=== PATIENT | female | born 1945 | race African-American/Black ===

== ENCOUNTER 2020-02-02 09:16 | Outpatient (REF) | payer MEDICARE, SELFPAY ==
[2020-02-02 10:18] LABS: MANUAL DIFF FLAG NO
[2020-02-02 10:28] LABS: Basophils Percent Auto 0.4 % (0-2); Eosinophils Absolute Auto 0.2 X10*3/uL (0.0-0.4); Eosinophils Percent Auto 2.8 % (0-4); Hematocrit 37.6 % (37-47); Hemoglobin 11.9 g/dl (12.0-16.0); Imm Gran Abs Auto 0.02 X10*3/uL (0.00-0.03); Imm Gran Pct Auto 0.3 % (0.0-0.4); Lymphocytes Absolute Auto 2.7 X10*3/uL (1.2-4.9); Lymphocytes Percent Auto 36.2 % (20-40); Mean Corpuscular HGB Conc 31.6 g/dl (31.0-35.0); Mean Corpuscular Hemoglobin 27.2 pg (27.0-33.0); Mean Corpuscular Volume 85.8 fL (80-98); Mean Platelet Volume 11.2 fL (9.4-12.3); Monocytes Absolute Auto 0.3 X10*3/uL (0.1-1.2); Monocytes Percent Auto 4.6 % (2-11); Neutrophils Absolute Auto 4.2 X10*3/uL (2.0-8.3); Neutrophils Percent Auto 55.7 % (45-73); Platelet Count 291 X10*3/uL (160-400); Red Blood Count 4.38 X10*6/uL (4.20-5.50); Red Cell Distribution Width 17.3 % (11.0-16.0); White Blood Count 7.4 X10*3/uL (4.8-10.8)
[2020-02-02 10:49] LABS: Estimated Average Glucose 174 mg/dL; Hemoglobin A1c % 7.7 %
[2020-02-02 10:55] LABS: Alanine Aminotransferase 15 U/L (0-31); Albumin Level 4.1 g/dL (3.5-5.0); Alkaline Phosphatase 151 U/L (39-117); Aspartate Amino Transferase 12 U/L (5-31); Bilirubin Direct 0.3 mg/dL (0.0-0.5); Bilirubin Total 0.6 mg/dL (0.0-1.0); Total Protein 7.4 g/dL (6.5-8.0)
[2020-02-02 10:57] LABS: Alanine Aminotransferase 16 U/L (0-31); Albumin Level 4.1 g/dL (3.5-5.0); Alkaline Phosphatase 152 U/L (39-117); Anion Gap 13 (12-20); Aspartate Amino Transferase 12 U/L (5-31); Bilirubin Total 0.6 mg/dL (0.0-1.0); Blood Urea Nitrogen 14 mg/dL (9-16); Carbon Dioxide 23 mmol/L (22-29); Chloride 108 mmol/L (96-108); Cholesterol 134 mg/dL; Estimated Glomerular Filt Rate > 60; Glucose Fasting 225 mg/dL (60-99); HDL Cholesterol 45 mg/dL; LDL Cholesterol Calculated 59 mg/dl; Potassium 3.4 mmol/l (3.3-5.1); Sodium 141 mmol/L (135-145); Total Protein 7.6 g/dL (6.5-8.0); Triglycerides 151 mg/dL
[2020-02-02 11:18] LABS: T4 Thyroxine 6.9 ug/dL (4.5-12.0); Thyroid Stimulating Hormone 0.24 mIU/mL (0.32-4.0); Vitamin D 25-OH Total 44.6 ng/mL (>30)
[2020-02-02 11:22] LABS: Folate 5.7 ng/mL (> or = 4.0); Vitamin B12 256 pg/mL (200-900)
[2020-02-02 11:39] LABS: Creatinine Urine 27.42 mg/dL; Microalbum/Creatinine Ratio Ur 1196.2 ug/mg cr
[2020-02-02 12:06] LABS: Free T4 (Free Thyroxine) 0.87 ng/dL (0.71-1.85)
[2020-02-03 18:42] LABS: Triiodothyronine T3 Free 2.8 pg/mL (2.3-4.2)
== END 2020-02-02 09:17 | disposition home or self-care (01) ==
LOC: HO.LAB 09:16
PROVIDERS: PCP Internal Medicine; Referring Provider Internal Medicine; Visit Provider Internal Medicine
DX: I25.10 Atherosclerotic heart disease of native coronary artery without angina pectoris (principal); E05.10 Thyrotoxicosis with toxic single thyroid nodule without thyrotoxic crisis or storm; E11.21 Type 2 diabetes mellitus with diabetic nephropathy; E11.65 Type 2 diabetes mellitus with hyperglycemia; E78.00 Pure hypercholesterolemia, unspecified; Z95.1 Presence of aortocoronary bypass graft; R19.7 Diarrhea, unspecified; I10 Essential (primary) hypertension
CPT/HCPCS: 36415; 80053; 80061; 80076; 82043; 82248; 82306; 82607; 82746; 83036; 84436; 84439; 84443; 84481; 85025

== ENCOUNTER → 2020-06-21 12:25 | Outpatient (BNVA) | payer MEDICARE, SELFPAY | PROVIDERS: PCP Internal Medicine; Visit Provider Internal Medicine | DX: I25.10 Atherosclerotic heart disease of native coronary artery without angina pectoris (principal); I10 Essential (primary) hypertension; R06.02 Shortness of breath; E11.8 Type 2 diabetes mellitus with unspecified complications; Z95.1 Presence of aortocoronary bypass graft; Z79.899 Other long term (current) drug therapy; Z79.4 Long term (current) use of insulin; Z79.82 Long term (current) use of aspirin | CPT/HCPCS: 99212 ==

== ENCOUNTER → 2020-08-09 09:37 | Outpatient (REF) | payer MEDICARE, SELFPAY ==
--- NOTE | 2020-08-09 09:40 | CA_ITS ---
Transthoracic Echocardiogram Patient (Last, First, Middle): Lauren Crowley B Gender: Female Date of : 1945 Age: 74 Procedure Date: 08/09/2020 Procedure Type: Transthoracic Echocardiogram Location: OP Height: 162.56 cm Weight: 90.72 kg BSA: 1.96 m2 Heart Rate: bpm BP: 130 / 76 mmHg Oral And Maxillofacial Surgeon: Referring MD: Sujit Patterosn MD Symptoms: Z95.1 - Presence of aortocoronary bypass graft Study Quality: Good ECG Rhythm: Sinus Conclusions: - The left ventricular systolic function is normal. The visually estimated ejection fraction is between 65-70%. - There is moderate to severely decreased right ventricular systolic function. - No obvious valvular pathology seen on this study. Findings Left Ventricle Normal left ventricular cavity size. There is normal left ventricular wall thickness. The left ventricular systolic function is normal. The visually estimated ejection fraction is between 65-70%. There is no evidence of regional wall motion abnormalities. Evidence suggests grade I (mild) diastolic dysfunction. Right Ventricle Normal right ventricular cavity size. There is moderate to severely decreased right ventricular systolic function. TAPSE 0.96cm. Atria The left atrium is normal in size. The right atrium is normal in size. Interatrial septum seems to bulge towards the left during systole. Aortic Valve There is a normal trileaflet aortic valve. There is no aortic valve stenosis. There is no aortic valve regurgitation. Mitral Valve The mitral valve appears normal. There is trace mitral valve regurgitation. There is no mitral valve stenosis. Pulmonic Valve The pulmonic valve was not well visualized. Tricuspid Valve Normal tricuspid valve structure. There is trace tricuspid valve regurgitation. The pulmonary artery systolic pressure is normal. Great Vessels The aortic annulus, sinuses of valsalva, and asc aorta are normal in size. Venous The inferior vena cava is normal in size and collapses greater than 50% with inspiration. Pericardium/Pleural There is no evidence of pericardial effusion. Prior Study Comparison Changes noted compared to prior study dated: 12/23/2019. RV function is lower. Previous TAPSE was 1.26cm. Recommendations, Care & Conclusions No obvious valvular pathology seen on this study. Measurements 2D Linear Measurements RVIDd: 3.10 RVIDd Index: 1.58 IVSd: 0.99 0.6-0.9/0.6-1.0 cm LVIDd: 4.45 3.9-5.3/4.2-5.9 cm LVIDd Index: 2.27 2.4-3.2/2.2-3.1 cm/m2 LVIDs: 2.61 2.0-3.6 cm LVPWd: 1.34 0.7-1.1 cm Ao Root: 2.60 2.1-3.5 cm LA Diam: 3.80 2.7-3.8/3.0-4.0 cm LAIDs Index: 1.94 1.5-2.3 cm/m2 LV Mass: 232.77 67-162/88-224 g LV Mass Index: 118.76 43-95/49-115 g/m2 LVOT Diam: 2.00 3.0+(-)1.3 cm 2D Systolic Function EF 4C: 73.70 >55% EF 2C: 61.50 >55% EF BiP: 68.10 >55% Mitral Valve MV Pk E: 0.58 MV PK A: 0.75 MV Decel Time: 264.00 E/A: 0.80 E'Lateral: 9.67 E'Medial: 5.13 E/E' Med: 11.20 E/E' Lat: 6.00 Aortic Valve AoV Pk Jai: 1.22 AoV Mn Jai: 0.89 AoV VTI: 0.26 AoV Pk Grad: 6.00 Aov Mn Grad: 4.00 AGUEDA Cont.VTI: 2.98 LVOT LVOT Pk Jai: 1.17 LVOT Mn Jai: 0.78 LVOT VTI: 0.24 LVOT Pk Grad: 5.00 LVOT Mn Grad: 3.00 LVOT Diam: 2.00 LVOT Area: 3.14 Diastolic Function MV Pk E: 0.58 MV Pk A: 0.75 E/A: 0.80 E'Medial: 5.13 E/E' Med: 11.20 E' Laterial: 9.67 E/E' Lat: 6.00 Tricuspid Valve TR Pk Jai: 2.84 TR Pk Grad: 32.00 Great Vessels Aorta Ao Root-2D: 2.60 2.0-3.7 cm Ao Asc: 3.10 2.1-3.4 cm Ao Arch: 3.00 Updated in Other Vendor System with Status of Final Sujit Patterson MD electronically signed on 08/10/2020 12:19:15 PM with status of Final
== END ==
LOC: HO.CARD 09:37
PROVIDERS: Visit Provider Internal Medicine
DX: Z95.1 Presence of aortocoronary bypass graft (principal)
CPT/HCPCS: 93306

== ENCOUNTER → 2020-12-14 11:03 | Outpatient (BNVA) | payer MEDICARE, SELFPAY | PROVIDERS: PCP Internal Medicine; Referring Provider Internal Medicine; Visit Provider Internal Medicine | DX: Z01.810 Encounter for preprocedural cardiovascular examination (principal); I25.10 Atherosclerotic heart disease of native coronary artery without angina pectoris; I10 Essential (primary) hypertension; Z95.1 Presence of aortocoronary bypass graft | CPT/HCPCS: 99212 ==

== ENCOUNTER → 2021-03-10 10:32 | Outpatient (BNVA) | payer MEDICARE, SELFPAY | PROVIDERS: PCP Internal Medicine; Referring Provider Internal Medicine; Visit Provider Internal Medicine | DX: Z01.810 Encounter for preprocedural cardiovascular examination (principal); I25.10 Atherosclerotic heart disease of native coronary artery without angina pectoris; I10 Essential (primary) hypertension; E11.8 Type 2 diabetes mellitus with unspecified complications; Z95.1 Presence of aortocoronary bypass graft | CPT/HCPCS: 93005; 99212 ==

== ENCOUNTER 2021-03-15 08:51 | Outpatient (REF) | payer MEDICARE, SELFPAY | END 2021-03-15 08:52 | disposition home or self-care (01) | LOC: HO.HMGCLDS 08:51 | PROVIDERS: PCP Internal Medicine; Visit Provider Internal Medicine | DX: Z20.822 Contact with and (suspected) exposure to COVID-19 (principal) | CPT/HCPCS: C9803; U0003; U0005 ==

== ENCOUNTER → 2021-11-29 09:31 | Outpatient (BNVA) | payer MEDICARE, SELFPAY | PROVIDERS: PCP Internal Medicine; Referring Provider Internal Medicine; Visit Provider Internal Medicine | DX: I25.10 Atherosclerotic heart disease of native coronary artery without angina pectoris (principal); I10 Essential (primary) hypertension; E11.8 Type 2 diabetes mellitus with unspecified complications; Z79.4 Long term (current) use of insulin; Z86.16 Personal history of COVID-19; Z87.891 Personal history of nicotine dependence; Z79.899 Other long term (current) drug therapy; Z95.1 Presence of aortocoronary bypass graft | CPT/HCPCS: 99212 ==

== ENCOUNTER → 2022-02-28 09:59 | Outpatient (BNVA) | payer MEDICARE, SELFPAY | PROVIDERS: PCP Internal Medicine; Referring Provider Internal Medicine; Visit Provider Internal Medicine | DX: I25.10 Atherosclerotic heart disease of native coronary artery without angina pectoris (principal); I10 Essential (primary) hypertension; E11.8 Type 2 diabetes mellitus with unspecified complications; Z95.1 Presence of aortocoronary bypass graft | CPT/HCPCS: 93005; 99212 ==

== ENCOUNTER 2022-07-05 10:15 | Outpatient (REF) | payer MEDICARE, SELFPAY ==
--- NOTE | ~2022-07-05 | US_ITS ---
EXAMINATION: US EXTRACRANIAL CAROTID DUPLEX, BILATERAL CLINICAL INFORMATION: Carotid stenosis. Diabetes. Hypertension. COMPARISON: None available. TECHNIQUE: Real-time ultrasound and Doppler techniques (integrating B-mode 2-D vascular images, Doppler spectral analysis and color-flow Doppler imaging) were utilized to interrogate the extracranial carotid arteries, the vertebral arteries and proximal subclavian arteries bilaterally. The degree of stenosis is determined by criteria similar to NASCET. FINDINGS: Right Side: 1. There is moderate atherosclerotic plaque seen in the bifurcation/proximal ICA region. 2. The common carotid artery PSV proximally is 115 cm/s and distally 62 cm/s. 3. The proximal internal carotid artery velocities are 75 cm/s systolic and 14 cm/s diastolic. 4. The proximal external carotid artery PSV is 145 cm/s. 5. The vertebral artery shows antegrade flow. 6. The subclavian artery waveforms are normal. Left Side: 1. There is mild atherosclerotic plaque seen in the bifurcation/proximal ICA region. 2. The common carotid artery PSV proximally is 93 cm/s and distally 50 cm/s. 3. The proximal internal carotid artery velocities are 61 cm/s systolic and 14 cm/s diastolic. 4. The proximal external carotid artery PSV is 185 cm/s. 5. The vertebral artery shows antegrade flow. 6. The subclavian artery waveforms are normal. US/US carotid duplex BI IMPRESSION: 1. RIGHT: Minimal, non-hemodynamically significant stenosis of the proximal right internal carotid artery corresponding to a 0-49% stenosis by velocity criteria. 2. LEFT: Minimal, non-hemodynamically significant stenosis of the proximal left internal carotid artery corresponding to a 0-49% stenosis by velocity criteria. 3. An irregular rhythm is noted.
== END 2022-07-05 10:16 | disposition home or self-care (01) ==
LOC: HO.US 10:15
PROVIDERS: PCP Internal Medicine; Visit Provider Internal Medicine
DX: I65.23 Occlusion and stenosis of bilateral carotid arteries (principal)
CPT/HCPCS: 93880

== ENCOUNTER → 2022-07-21 07:00 | Outpatient (REF) | payer MEDICARE, SELFPAY ==
--- NOTE | 2022-07-21 07:04 | HM_ITS ---
* Total monitoring time about 6 days. * Underlying rhythm is sinus. Average ventricular rate 70/Min. Range 55 to 111/Min. * Frequent supraventricular ectopy with a burden of 7.5%. * Occasional ventricular ectopy with a burden of 0.7%. 2 couplets, 1 triplet, occasional bigeminy, trigeminy. One run of 3 beats. * No significant pauses or AV blocks. * No patient markers or events diary. It MTDD
== END ==
LOC: HO.CARD 07:00
PROVIDERS: Visit Provider Internal Medicine
DX: I48.0 Paroxysmal atrial fibrillation (principal)
CPT/HCPCS: 93242

== ENCOUNTER 2022-12-29 10:32 | Outpatient (AMB) | payer MEDICARE, SELFPAY ==
[2022-12-29 10:36] VITALS: BP 130/68; PULSE 70; O2SAT 90; BMI 34.8
--- NOTE | 2022-12-29 10:36 | A.OFFPC_ITS ---
Vital Signs 12/29/22 10:36 Height 5 ft 4 in Weight 203 lb BMI 34.8 BP 130/68 Blood Pressure Location Lt brachial Position Sitting Pulse 70 Pulse Source Pulse Oximeter Pulse Oximetry (%) 90 L Oxygen Delivery Method Room Air Intake Visit Reasons: DM, hyperthyroid, CAD Allergies No Known Allergies [No Known Allergies*] Allergy (Verified 12/29/22 10:37) Medication List - Last Reconciled 12/29/22 by Ry Soriano MD amlodipine 5 mg PO DAILY aspirin 81 mg PO DAILY atorvastatin 80 mg PO DAILY azithromycin take 500 mg today (day 1), then 250 mg for 4 days (days 2-5) PO blood sugar diagnostic (FreeStyle Lite Strips) As directed check the BS TID flash glucose sensor (FreeStyle Kisha 2 Sensor kit) three times a day insulin aspart U-100 (Novolog FlexPen U-100 Insulin aspart) 8 - 36 units subcut TID insulin glargine 30 units subcut DAILY lisinopril 30 mg PO DAILY 90 days meloxicam 15 mg PO DAILY metformin 500 mg PO BID methimazole 2.5 mg (1/2 x 5 mg) PO DAILY metoprolol succinate ER 25 mg PO BID 90 days nitroglycerin 0.4 mg sublingual Q5M PRN pen needle, diabetic (1st Tier Unifine Pentips) As directed injection 4 times a day [PULL UPS Extra Large As directed] simethicone (Gas Relief (simethicone)) 160 mg (2 x 80 mg) PO DAILY PRN 90 days torsemide 20 mg PO DAILY Tobacco use date assessed: 05/29/22 Fall risk assessment: No Falls in past year Last assessed Fall Risk: 12/29/22 Dental Screening Dental Screen Date: 12/29/22 Did you have a dental visit in the last 12 months?: No Did you have a dental problem in the last 6 months where you did not have access to dental care?: No Was dental information given to patient?: Patient has dentist HPI DM, hyperthyroid, CAD HPI Details 77-year-old obese female with diabetes m ellitus hypercholesterolemia coronary artery disease hypertension coming in for follow-up. Last seen in August 2022. Patient's colonoscopy is due this year, decline mammogram. Review of the notes had blood work done in [facility] October 2022 with borderline low potassium 3.4 renal function of 1.0 normal thyroid knowing normal liver function test. Patient has not had any cholesterol test and so advised to retest. Request done. Patient complains of left knee pain and has been seeing orthopedics in [place] wanted to do some test in [place] but patient states could not go for that test. Patient was given Voltaren gel to help with the pain. As for diabetes patient sees endocrinology. Discussed about vaccinations also [facility] Medical History (Updated 12/29/22 @ 11:32 by Ry Soriano MD) COVID-19 virus infection Obesity (BMI 30-39.9) Diabetic nephropathy Essential hypertension Lab test positive for detection of COVID-19 virus Toxic multinodular goiter Tubular adenoma of colon Coronary artery disease Hypercholesterolemia Type 2 diabetes mellitus with hyperglycemia Surgical History Status post coronary artery bypass graft History of coronary artery bypass graft x 3 (~09/17/19) History of cardiac catheterization (~09/16/19) History of total left knee replacement H/O umbilical hernia repair S/P lumpectomy, left breast Family History (Updated 09/07/22 @ 08:44 by BILLY Barnett) Father No problems noted. Mother No problems noted. Social History Housing: Apartment Alcohol intake: current Alcohol intake frequency: holidays/special occasions only Patient Tobacco Use Status: Former Tobacco user (10 years ago ) Tobacco use type: Cigarette Years Smoked: 1999 quit e-Cigarette/Vaping Use: Never Used Second Hand Smoke Exposure: No Advance Directives Date on File: 01/08/20 service: No Current occupational status: retired Cognitive needs: Yes (cane ) Hearing needs: No Vision needs: Yes (glasses) Questionnaire PHQ-9 Over the last 2 weeks, how often have you been bothered by any of the following problems? 1. Little interest or pleasure in doing things: not at all 2. Feeling down, depressed, or hopeless: not at all 3. Trouble falling or staying asleep, or sleeping too much: not at all 4. Feeling tired or having little energy: not at all 5. Poor appetite or overeating: not at all 6. Feeling bad about yourself - or that you are a failure or have let yourself or your family down: not at all 7. Trouble concentrating on things, such as reading the newspaper or watching television: not at all 8. Moving or speaking so slowly that other people could have noticed. Or the opposite - being so fidgety or restless that you have been moving around a lot more than usual: not at all 9. Thoughts that you would be better off or of hurting yourself in some way: not at all Total score: 0 Depression Screening Interpretation: Negative Source: Developed by Drs. Reid Pena, Claribel Gomez, Randy Dukes and colleagues, with an educational bala from [employer]. Thrive Questionnaire Date Thrive assessed: 05/29/22 AUDIT C Alcohol Use Questionnaire (AUDIT-C) 1. How often do you have a drink containing alcohol?: Monthly or less 2. How many drinks containing alcohol do you have on a typical day when you are drinking?: 1 or 2 3. How often do you have six or more drinks on one occasion?: Never Total Score: 1 ROSARIO-7 AMB Questionnaire ROSARIO-7 Date ROSARIO - 7 assessed: 05/29/22 Source: Developed by Drs. Reid Pena, Claribel Gomez, Randy Dukes and colleagues, with an educational bala from [employer]. Physical exam (Primary Care) Vital Signs: Last Vital Signs Pulse 70 12/29/22 10:36 BP 130/68 12/29/22 10:36 Pulse Ox 90 L 12/29/22 10:36 Oxygen Delivery Method Room Air 12/29/22 10:36 BMI result Body Mass Index 34.8 Tobacco/Smoking Status: Tobacco use Status Tobacco use date assessed 05/29/22 12/29/22 10:40 Patient Tobacco Use Status Former Tobacco user (10 12/29/22 10:40 years ago ) Tobacco use type Cigarette 12/29/22 10:40 e-Cigarette/Vaping Use Never Used 12/29/22 10:40 PHQ-9: PHQ-9 Score PHQ-9: Total score 0 12/29/22 11:01 Depression Screening Interpretation: Negative Thrive Assessment: Date of Thrive Assessment Date Thrive assessed 05/29/22 12/29/22 10:40 Const General: alert; No acute distress Eyes Conjunctivae: conjunctivae normal Resp Auscultation: clear to auscultation bilaterally Cardio Rate: regular rate Rhythm: regular rhythm GI Inspection: Yes normal to inspection Extrem General: Yes normal to inspection and No edema Results AMB Hemoglobin A1c AMB Hemoglobin A1c 7.6 % Last Edit by Lory Crane CMA on 12/29/22 11 :02 Results Reviewed Results Reviewed: Laboratory Last Values Hgb A1c (Clinic) 7.6 % (4.0-6.0) H 12/29/22 10:40 Assessment and Plan Assessment & Plan (1) Type 2 diabetes mellitus with hyperglycemia: Comment: [facility] Code(s): E11.65 - Type 2 diabetes mellitus with hyperglycemia Qualifiers: Diabetes mellitus assisted insulin use: with assisted use Qualified Code(s): E11.65 - Type 2 diabetes mellitus with hyperglycemia; Z79.4 - manager terminal (current) use of insulin Plan: Decrease the amount of carbohydrate intake, pasta, bread, rice and potatoes are all sugar and that is aside from all the sweet stuff, remember that fruits are good but they are Sweet also. Hemoglobin A1c goal of less than 7.0 patient is on insulin metformin eye uptodate (2) Hypercholesterolemia: Comment: March 2022 Code(s): E78.00 - Pure hypercholesterolemia, unspecified Plan: Avoid fried foods, chicken skin, eggs, butter margarine, pastries and meat. Be it pork or beef they have a lot of cholesterol LDL goal of less than 70 and triglyceride of less than 150. Patient is recommended to get the blood work (3) Coronary artery disease: Comment: nuclear stress test positive September 2019 EF 60 % moderate a symmetrical septal hypertrophy, catheterization done and bypass September 2019 CABG x3 Code(s): I25.10 - Atherosclerotic heart disease of [place] coronary artery without angina pectoris Qualifiers: Coronary Disease-Associated Artery/Lesion type: [place] artery [place] vs. transplanted heart: [place] heart Associated angina: without angina Qualified Code(s): I25.10 - Atherosclerotic heart disease of [place] coronary artery without angina pectoris Plan: Control the cholesterol, weight, blood pressure, diabetes (4) Essential hypertension: Code(s): I10 - Essential (primary) hypertension Plan: Continue with blood pressure medication. Decrease salt intake and exercise patient takes amlodipine 5 mg once a day lisinopril 30 mg once a day metoprolol 25 mg twice a day (5) Obesity (BMI 30-39.9): Code(s): E66.9 - Obesity, unspecified Plan: Diet and exercise (6) Tubular adenoma of colon: Comment: 12/2017 Code(s): D12.6 - Benign neoplasm of colon, unspecified Plan: Patient is reminded about colonoscopy (7) Knee osteoarthritis: Code(s): M17.10 - Unilateral primary osteoarthritis, unspecified knee Orders: Orders AMB Hemoglobin A1c Today Z13.9 - Encounter for screening, unspecified Lipid Panel 1 Day E78.00 - Pure hypercholesterolemia, unspecified Referrals Gastroenterology Referral D12.6 - Benign neoplasm of colon, unspecified Medications: New diclofenac sodium 1% (Voltaren Arthritis Pain) apply to single knee, ankle, foot; for foot includes sole/toes/top of foot 4 grams topical QID 100 grams 3RF M17.10 - Unilateral primary osteoarthritis, unspecified knee Refilled lisinopril 30 mg PO DAILY 90 caps 3RF 90 days I10 - Essential (primary) hypertension Coding Level of Care Code Est Pt Level 4 (58205) Diagnoses Type 2 diabetes mellitus with hyperglycemia, with long-term current use of insulin E11.65; Z79.4 Diabetes mellitus intermodal customer service insulin use: with intermodal customer service use Hypercholesterolemia E78.00 Coronary artery disease involving [place] coronary artery of [place] heart without angina pectoris I25.10 Coronary Disease-Associated Artery/Lesion type: [place] artery [place] vs. transplanted heart: [place] heart Associated angina: without angina Essential hypertension I10 Obesity (BMI 30-39.9) E66.9 Tubular adenoma of colon D12.6 Knee osteoarthritis M17.10
== END 2022-12-29 11:45 | disposition home or self-care (01) ==
PROVIDERS: PCP Internal Medicine; Visit Provider Internal Medicine
DX: E11.65 Type 2 diabetes mellitus with hyperglycemia (principal); Z79.4 Long term (current) use of insulin; E78.00 Pure hypercholesterolemia, unspecified; I25.10 Atherosclerotic heart disease of native coronary artery without angina pectoris; I10 Essential (primary) hypertension; M17.10 Unilateral primary osteoarthritis, unspecified knee
CPT/HCPCS: 83036; 99214

== ENCOUNTER 2023-01-02 07:53 | Outpatient (REF) | payer MEDICARE, SELFPAY ==
[2023-01-02 09:45] LABS: Cholesterol 112 mg/dL (<200); HDL Cholesterol 35 mg/dL (>40); LDL Cholesterol Calculated 50 mg/dL (<100); Triglycerides 136 mg/dL (<150)
== END 2023-01-02 07:54 | disposition home or self-care (01) ==
LOC: HO.LAB 07:53
PROVIDERS: PCP Internal Medicine; Visit Provider Internal Medicine
DX: E78.00 Pure hypercholesterolemia, unspecified (principal)
CPT/HCPCS: 36415; 80061

== ENCOUNTER 2023-02-27 10:01 | Outpatient (AMB) | payer MEDICARE, SELFPAY ==
[2023-02-27 10:03] VITALS: BP 132/82; PULSE 82; BMI 34.4
--- NOTE | 2023-02-27 10:03 | MHC.OFFVIS ---
Intake Vital Signs 02/27/23 10:03 Height 5 ft 4 in Weight 200 lb 9.93 oz BMI 34.4 BP 132/82 Blood Pressure Location Lt brachial Position Sitting Pulse 82 Intake Visit Reasons: 1 yr f/up Intake Note: 1 year follow up w/ EKG Greenkeeper Required: No Accompanied by: Self / Same As Patient Allergies No Known Allergies [No Known Allergies*] Allergy (Verified 02/27/23 10:06) Medication List - Last Reconciled 02/27/23 by Sujit Patterson MD amlodipine 5 mg PO DAILY aspirin 81 mg PO DAILY atorvastatin 80 mg PO DAILY blood sugar diagnostic (FreeStyle Lite Strips) As directed check the BS TID diclofenac sodium 1% (Voltaren Arthritis Pain) 4 grams topical QID flash glucose sensor (FreeStyle Kisha 2 Sensor kit) three times a day insulin aspart U-100 (Novolog FlexPen U-100 Insulin aspart) 8 - 36 units subcut TID insulin glargine 30 units subcut DAILY lisinopril 30 mg PO DAILY 90 days meloxicam 15 mg PO DAILY metformin 500 mg PO BID methimazole 2.5 mg (1/2 x 5 mg) PO DAILY metoprolol succinate ER 25 mg PO BID 90 days nitroglycerin 0.4 mg sublingual Q5M PRN pen needle, diabetic (1st Tier Unifine Pentips) As directed injection 4 times a day [PULL UPS Extra Large As directed] torsemide 20 mg PO DAILY HPI HPI Comments History of Present Illness Details Lauren returns for follow-up regarding coronary disease and bypass surgery. In the past, she was seen for consultation regarding anginal-type symptoms. This led to cardiac catheterization and coronary bypass surgery. She has multiple vascular risk factors including type 2 diabetes, hypertension, dyslipidemia. She states that she is doing fine. No complaints like angina or shortness of breath or in fact anything cardiac sounding. [facility] Medical History (Updated 12/29/22 @ 11:32 by Ry Soriano MD) COVID-19 virus infection Obesity (BMI 30-39.9) Diabetic nephropathy Essential hypertension Lab test positive for detection of COVID-19 virus Toxic multinodular goiter Tubular adenoma of colon Coronary artery disease Hypercholesterolemia Type 2 diabetes mellitus with hyperglycemia Surgical History Status post coronary artery bypass graft History of coronary artery bypass graft x 3 (~09/17/19) History of cardiac catheterization (~09/16/19) History of total left knee replacement H/O umbilical hernia repair S/P lumpectomy, left breast Family History (Updated 09/07/22 @ 08:44 by BILLY Barnett) Father No problems noted. Mother No problems noted. Housing: Apartment Alcohol intake: current Alcohol intake frequency: holidays/special occasions only Patient Tobacco Use Status: Former Tobacco user (10 years ago ) Tobacco use type: Cigarette Years Smoked: 1999 quit e-Cigarette/Vaping Use: Never Used Second Hand Smoke Exposure: No Advance Directives Date on File: 01/08/20 service: No Current occupational status: retired Cognitive needs: Yes (cane ) Hearing needs: No Vision needs: Yes (glasses) Review of Systems Const Denies weakness ENT Denies dizziness Card Denies chest pain, Denies chest pain with activity, Denies syncope, Denies rapid heart rate, Denies pedal edema, Denies edema, Denies leg edema, Denies lightheadedness, Denies palpitations, Denies dyspnea, Denies dyspnea on exertion and Denies orthopnea Resp Denies cough, Denies dyspnea and Denies dyspnea on exertion GI Denies hematochezia and Denies change in stool character Musc Denies abnormal gait, Denies muscle cramps, Denies muscle weakness, Denies numbness, Denies radiating pain into limb and Denies tingling Neuro Denies abnormal gait, Denies dizziness, Denies syncope, Denies numbness, Denies tingling and Denies weakness Endo Denies palpitations Physical Exam Vital Signs: Last Vital Signs Pulse 82 02/27/23 10:03 BP 132/82 02/27/23 10:03 BMI result Body Mass Index 34.4 Const General: comfortable and no acute distress Orientation/consciousness: patient oriented x3 HEENT Other: Unremarkable Head: Yes normal to inspection Neck Neck: Yes normal visual inspection Chest Chest palpation & inspection: normal inspection of the chest Resp Auscultation: clear to auscultation bilaterally Cardio Palpation: normal PMI Heart sounds: S1 normal heart sound present, S2 normal heart sound present, no gallops, no murmurs and no rubs GI Palpation (GI): Soft to palpation Back/Spine/Pelvis Other: unremarkable Skin General skin exam: no rashes or lesions noted Neuro General: patient oriented x3 Extrem General: Yes normal to inspection Psych Mental Status: mental status grossly normal Office Procedures EKG Details: EKG with sinus rhythm at 82/Min; occasional PVCs; cannot exclude old inferior infarct; ST-T changes in lateral/anterolateral leads. Overall, similar to prior. [id number], Complete Assessment & Plan Assessment & Plan (1) Atherosclerotic cardiovascular disease: Code(s): I25.10 - Atherosclerotic heart disease of [place] coronary artery without angina pectoris Plan: Continue aspirin and statins. Last LDL 50mg/dl. (2) Status post coronary artery bypass graft: Code(s): Z95.1 - Presence of aortocoronary bypass graft Plan: 09/2019. No recurrent issues. (3) Essential hypertension: Code(s): I10 - Essential (primary) hypertension Plan: Stable. On metoprolol, amlodipine, lisinopril. (4) Type 2 diabetes mellitus with complication: Code(s): E11.8 - Type 2 diabetes mellitus with unspecified complications Plan: She is on insulin and metformin. Last hemoglobin A1c is 7.6%. Could be better. Coding Level of Care Code Est Pt Level 4 (69846) Diagnoses Atherosclerotic cardiovascular disease I25.10 Status post coronary artery bypass graft Z95.1 Essential hypertension I10 Type 2 diabetes mellitus with complication E11.8 CPT Codes EKG - CPT: 90366-[id number], Complete ([id number])
== END 2023-02-27 10:26 | disposition home or self-care (01) ==
PROVIDERS: Visit Provider Internal Medicine
DX: I25.10 Atherosclerotic heart disease of native coronary artery without angina pectoris (principal); Z95.1 Presence of aortocoronary bypass graft; I10 Essential (primary) hypertension; E11.8 Type 2 diabetes mellitus with unspecified complications
CPT/HCPCS: 93010; 99214

== ENCOUNTER → 2023-02-27 10:01 | Outpatient (BNVA) | payer MEDICARE, SELFPAY | PROVIDERS: Visit Provider Internal Medicine | DX: I25.10 Atherosclerotic heart disease of native coronary artery without angina pectoris (principal); I10 Essential (primary) hypertension; E11.8 Type 2 diabetes mellitus with unspecified complications; Z95.1 Presence of aortocoronary bypass graft | CPT/HCPCS: 93005; 99212 ==

== ENCOUNTER 2023-04-13 09:33 | Outpatient (AMB) | payer MEDICARE, SELFPAY ==
[2023-04-13 09:35] VITALS: BP 150/78; PULSE 70; O2SAT 92; BMI 34.8
--- NOTE | 2023-04-13 09:35 | MHC.PC.OV ---
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 Accompanied by: Daughter Allergies No Known Allergies [No Known Allergies*] Allergy (Verified 04/13/23 09:35) Medication List - Last Reconciled 04/13/23 by Ry Soriano MD amlodipine 5 mg PO DAILY aspirin 81 mg PO DAILY atorvastatin 80 mg PO DAILY blood sugar diagnostic (FreeStyle Lite Strips) As directed check the BS TID diclofenac sodium 1% (Voltaren Arthritis Pain) 4 grams topical QID flash glucose sensor (FreeStyle Kisha 2 Sensor kit) three times a day insulin aspart U-100 (Novolog FlexPen U-100 Insulin aspart) 8 - 36 units subcut TID insulin glargine 30 units subcut DAILY lisinopril 30 mg PO DAILY 90 days meloxicam 15 mg PO DAILY metformin 500 mg PO BID methimazole 2.5 mg (1/2 x 5 mg) PO DAILY metoprolol succinate ER 25 mg PO BID 90 days nitroglycerin 0.4 mg sublingual Q5M PRN pen needle, diabetic (1st Tier Unifine Pentips) As directed injection 4 times a day [PULL UPS Extra Large As directed] torsemide 20 mg PO DAILY Tobacco use date assessed: 04/13/23 Fall risk assessment: No Falls in past year Last assessed Fall Risk: 04/13/23 Dental Screening Dental Screen Date: 04/13/23 Did you have a dental visit in the last 12 months?: No Did you have a dental problem in the last 6 months where you did not have access to dental care?: No Was dental information given to patient?: Patient has dentist HPI 3 Months F/U HPI Details 77-year-old obese female with uncontrolled diabetes mellitus hypercholesterolemia coronary artery disease hypertension coming in for follow-up. December last seen patient's colonoscopy is supposed to be due for this year December 2017 tubular adenoma, discussed about mammogram. [facility] Medical History COVID-19 virus infection Obesity (BMI 30-39.9) Diabetic nephropathy Essential hypertension Lab test positive for detection of COVID-19 virus Toxic multinodular goiter Tubular adenoma of colon Coronary artery disease Hypercholesterolemia Type 2 diabetes mellitus with hyperglycemia Surgical History Status post coronary artery bypass graft History of coronary artery bypass graft x 3 (~09/17/19) History of cardiac catheterization (~09/16/19) History of total left knee replacement H/O umbilical hernia repair S/P lumpectomy, left breast Family History Father No problems noted. Mother No problems noted. Social History Housing: Apartment Alcohol intake: current Alcohol intake frequency: holidays/special occasions only Patient Tobacco Use Status: Former Tobacco user (10 years ago ) Tobacco use type: Cigarette Years Smoked: 1999 quit e-Cigarette/Vaping Use: Never Used Second Hand Smoke Exposure: No Advance Directives Date on File: 01/08/20 service: No Current occupational status: retired Cognitive needs: Yes (cane ) Hearing needs: No Vision needs: Yes (glasses) Questionnaire PHQ-9 Over the last 2 weeks, how often have you been bothered by any of the following problems? 1. Little interest or pleasure in doing things: not at all 2. Feeling down, depressed, or hopeless: not at all 3. Trouble falling or staying asleep, or sleeping too much: not at all 4. Feeling tired or having little energy: not at all 5. Poor appetite or overeating: not at all 6. Feeling bad about yourself - or that you are a failure or have let yourself or your family down: not at all 7. Trouble concentrating on things, such as reading the newspaper or watching television: not at all 8. Moving or speaking so slowly that other people could have noticed. Or the opposite - being so fidgety or restless that you have been moving around a lot more than usual: not at all 9. Thoughts that you would be better off or of hurting yourself in some way: not at all Total score: 0 Depression Screening Interpretation: Negative Depression Screening Done: Yes Source: Developed by Drs. Reid Pena, Claribel Gomez, Randy Dukes and colleagues, with an educational bala from [employer]. Thrive Questionnaire Date Thrive assessed: 04/13/23 I am a: Patient What is your living situation today?: I have a steady place to live Within the past 12 months, did the food you bought not last and you didn't have the money to get more?: Never true Within the past 12 months, did you worry whether your food would run out before you got money to buy more?: Never true Do you have trouble paying for medicines?: No Do you have trouble getting transportation to medical appointments?: No Do you have trouble paying your heating and electricity bill?: No Do you have trouble taking care of your child, family member or friend?: No Do you have trouble with day-to-day activities such as bathing, preparing meals, shopping, managing finances, etc.?: No Are you currently unemployed and looking for a job?: No Are you interested in more education?: No Please select the resources that you would like help with: None AUDIT C Alcohol Use Questionnaire (AUDIT-C) 1. How often do you have a drink containing alcohol?: Monthly or less 2. How many drinks containing alcohol do you have on a typical day when you are drinking?: 1 or 2 3. How often do you have six or more drinks on one occasion?: Never Total Score: 1 ROSARIO-7 AMB Questionnaire ROSARIO-7 Date ROSARIO - 7 assessed: 04/13/23 Feeling nervous, anxious, or on edge: 0 = Not at all Not being able to stop or control worryin = Not at all Worrying too much about different things: 0 = Not at all Trouble relaxin = Not at all Being so restless that it is hard to sit still: 0 = Not at all Becoming easily annoyed or irritable: 0 = Not at all Feeling afraid as if something awful might happen: 0 = Not at all Total ROSARIO-7 score (0-4 normal; 5-9 mild; 10-14 moderate; 15-21 severe): 0 Source: Developed by Claribel Walker, Randy Dukes and colleagues, with an educational bala from [employer]. Physical exam (Primary Care) Vital Signs: Last Vital Signs Pulse 70 04/13/23 09:35 BP 150/78 H 04/13/23 09:35 Pulse Ox 92 04/13/23 09:35 Oxygen Delivery Method Room Air 04/13/23 09:35 BMI result Body Mass Index 34.8 Tobacco/Smoking Status: Tobacco use Status Tobacco use date assessed 04/13/23 04/13/23 09:36 Patient Tobacco Use Status Former Tobacco user (10 04/13/23 09:36 years ago ) Tobacco use type Cigarette 04/13/23 09:36 e-Cigarette/Vaping Use Never Used 04/13/23 09:36 PHQ-9: PHQ-9 Score PHQ-9: Total score 0 04/13/23 11:15 Depression Screening Interpretation: Negative Thrive Assessment: Date of Thrive Assessment Date Thrive assessed 04/13/23 04/13/23 09:36 Const General: alert; No acute distress Eyes Conjunctivae: conjunctivae normal Resp Auscultation: clear to auscultation bilaterally Cardio Rate: regular rate Rhythm: regular rhythm GI Inspection: Yes normal to inspection Extrem General: Yes normal to inspection and No edema Office Procedures Flu Questionnaire Does the patient have a severe egg allergy?: No Does the patient have severe life threatening allergies?: No Does the patient have a fever or illness today?: No Has the patient ever had Guillain-[place] Syndrome?: No Has the patient ever had any past reaction to a flu shot?: No Results AMB Hemoglobin A1c AMB Hemoglobin A1c 8.1 % Last Edit by BILLY Doty on 04/13/23 11:24 Immunizations flu vacc [id number] 6mos up(PF) 60 mcg(15 mcgx4)/0.5 mL IM syringe Performing Provider: Ry Soriano MD [facility] Administered by: BILLY Doty on 04/13/23 10:15 Dose Route Admin Location Dispensed Lot Number Expiration Date NDC Sales [employer] Service [employer] 0.5 mL IM Right Deltoid 0.5 mL [id number] 09/30/23 [id number] [employer]ricity VIS Given Date VIS Provided VIS Publication Date 04/13/23 Single Vaccine 20 Eligibility Eligibility Date Funding Source Not [facility] Eligible 04/13/23 Private Assessment and Plan Assessment & Plan (1) Tubular adenoma of colon: Comment: 12/2017 Code(s): D12.6 - Benign neoplasm of colon, unspecified Plan: Discussed about colonoscopy schedule 05/03/2022 (2) Type 2 diabetes mellitus with hyperglycemia: Comment: [facility] Code(s): E11.65 - Type 2 diabetes mellitus with hyperglycemia Qualifiers: Diabetes mellitus senior living insulin use: with watcher automat long goods use Qualified Code(s): E11.65 - Type 2 diabetes mellitus with hyperglycemia; Z79.4 - long term care phlebotomist (current) use of insulin Plan: Decrease the amount of carbohydrate intake, pasta, bread, rice and potatoes are all sugar and that is aside from all the sweet stuff, remember that fruits are good but they are Sweet also. Hemoglobin A1c goal of less than 7.0. Patient is taking glargine 27 units with NovoLog metformin 500 mg twice a day. PAtient sees eye doctor regularly. Concern that the patient is getting hypoglycemic episodes and because the patient is under endocrinology advised to get in touch with them with the hypoglycemic episodes patient has an upcoming schedule also. (3) Hypercholesterolemia: Comment: March 2022 Code(s): E78.00 - Pure hypercholesterolemia, unspecified Plan: Avoid fried foods, chicken skin, eggs, butter margarine, pastries and meat. Be it pork or beef they have a lot of cholesterol LDL goal of less than 70 and triglyceride of less than 150 December 2022 50 (4) Coronary artery disease: Comment: nuclear stress test positive September 2019 EF 60 % moderate a symmetrical septal hypertrophy, catheterization done and bypass September 2019 CABG x3 Code(s): I25.10 - Atherosclerotic heart disease of [place] coronary artery without angina pectoris Qualifiers: Associated angina: without angina Coronary Disease-Associated Artery/Lesion type: [place] artery [place] vs. transplanted heart: [place] heart Qualified Code(s): I25.10 - Atherosclerotic heart disease of [place] coronary artery without angina pectoris Plan: Control the cholesterol, weight, blood pressure, diabetes continue with aspirin 81 mg once a day (5) Essential hypertension: Code(s): I10 - Essential (primary) hypertension Plan: Continue with blood pressure medication. Decrease salt intake and exercise patient takes amlodipine 5 mg once a day lisinopril 30 mg once a day. Patient's blood pressure is elevated reasons that presently has some stress but advised to monitor the blood pressure and get in touch with us with the blood pressure numbers. Do not like the systolic blood pressure 140 or above or the diastolic 90 or above. blood pressure (6) Obesity (BMI 30-39.9): Code(s): E66.9 - Obesity, unspecified Plan: Diet and exercise (7) Peripheral neuropathy: Code(s): G62.9 - Polyneuropathy, unspecified Plan: Gabapentin to start 100 mg once at bedtime Orders: Orders Influenza [id number] Immunization Today Z23 - Encounter for immunization AMB Hemoglobin A1c Today E11.65 - Type 2 diabetes mellitus with hyperglycemia Medications: New gabapentin 100 mg PO BEDTIME 30 caps 4RF G62.9 - Polyneuropathy, unspecified Changed From insulin glargine 30 units subcut DAILY To insulin glargine 27 units subcut DAILY Coding Level of Care Code Est Pt Level 4 (35988) Diagnoses Tubular adenoma of colon D12.6 Type 2 diabetes mellitus with hyperglycemia, with long-term current use of insulin E11.65; Z79.4 Diabetes mellitus watcher automat long goods insulin use: with watcher automat long goods use Hypercholesterolemia E78.00 Coronary artery disease involving [place] coronary artery of [place] heart without angina pectoris I25.10 Associated angina: without angina Coronary Disease-Associated Artery/Lesion type: [place] artery [place] vs. transplanted heart: [place] heart Essential hypertension I10 Obesity (BMI 30-39.9) E66.9 Peripheral neuropathy G62.9
== END 2023-04-13 10:16 | disposition home or self-care (01) ==
PROVIDERS: PCP Internal Medicine; Visit Provider Internal Medicine
DX: E11.65 Type 2 diabetes mellitus with hyperglycemia (principal); Z79.4 Long term (current) use of insulin; D12.6 Benign neoplasm of colon, unspecified; Z23 Encounter for immunization; E78.00 Pure hypercholesterolemia, unspecified; I25.10 Atherosclerotic heart disease of native coronary artery without angina pectoris; I10 Essential (primary) hypertension; E66.9 Obesity, unspecified; G62.9 Polyneuropathy, unspecified
CPT/HCPCS: 83036; 90471; 90686; 99214

== ENCOUNTER 2023-05-03 10:40 | Outpatient (AMB) | payer MEDICARE, SELFPAY ==
--- NOTE | 2023-05-03 10:44 | MHC.OFFVIS ---
Intake Vital Signs 05/03/23 10:46 Height 5 ft 4 in Weight 200 lb 9.93 oz BMI 34.4 BP 142/70 H Blood Pressure Location Lt brachial Position Sitting Pulse 78 Intake Visit Reasons: Colonoscopy Screening Intake Note: Lauren presents in the office as a colonoscopy screening. CC: She states that she is not having any concerns she is just due for a colonoscopy. 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 female with past medical history of peripheral neuropathy, multinodular goiter, hypertension, status post coronary artery bypass graft, hypercholesteremia, diabetes is here today for pre colonoscopy screening.? Patient was sent to us by her PCP.? Patient had colonoscopy in 2018 in December with tubular adenoma.? Patient denies any gastrointestinal symptoms in the past or at present.? Denies any personal or family history of gastrointestinal disease or cancer.? Denies history of difficulty with sedation or anesthesia in the past.? Negative for history of sleep apnea.? Denies any history of renal, pulmonary, or hepatic disease.?? History of coronary bypass 2 years ago, on low-dose aspirin. 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 Follow-up appointment was made for 1 year. No history of infectious? diseases like hepatitis A, B, C, HIV or tuberculosis.? [facility] Medical History COVID-19 virus infection Obesity (BMI 30-39.9) Diabetic nephropathy Essential hypertension Lab test positive for detection of COVID-19 virus Toxic multinodular goiter Tubular adenoma of colon Coronary artery disease Hypercholesterolemia Type 2 diabetes mellitus with hyperglycemia Surgical History Hx of colonoscopy Status post coronary artery bypass graft History of coronary artery bypass graft x 3 (~09/17/19) History of cardiac catheterization (~09/16/19) History of total left knee replacement H/O umbilical hernia repair S/P lumpectomy, left breast Family History Father No problems noted. Mother No problems noted. Social History Housing: Apartment Alcohol intake: current Alcohol intake frequency: holidays/special occasions only Patient Tobacco Use Status: Former Tobacco user (10 years ago ) Tobacco use type: Cigarette Years Smoked: 1999 quit e-Cigarette/Vaping Use: Never Used Second Hand Smoke Exposure: No Advance Directives Date on File: 01/08/20 service: No Current occupational status: retired Cognitive needs: Yes (cane ) Hearing needs: No Vision needs: Yes (glasses) Review of Systems Const Denies weight gain and Denies weight loss ENT Reports no additional complaints, Denies dysphagia and Denies odynophagia Card Reports no additional complaints Resp Reports no additional complaints GI Denies abdominal pain, Denies belching, Denies melena, Denies bloating, Denies change in bowel habits, Denies dysphagia, Denies excessive flatus, Denies dyspepsia, Denies heartburn, Denies diarrhea, Denies loose stools, Denies nausea, Denies odynophagia and Denies vomiting Reports no additional complaints Musc Reports no additional complaints Neuro Reports no additional complaints Psych Reports no additional complaints Endo Reports no additional complaints Physical Exam Vital Signs: Last Vital Signs Pulse 78 05/03/23 10:46 BP 142/70 H 05/03/23 10:46 BMI result Body Mass Index 34.4 Const General: healthy appearing, no acute distress and well developed Nutritional Appearance: well nourished Orientation/consciousness: patient oriented x3 Resp Effort & Inspection: normal respiratory effort, able to speak in complete sentences, no tracheal deviation and symmetric chest movement Auscultation: clear to auscultation bilaterally Cardio Rate: regular rate GI Inspection: Yes normal to inspection and No distended Palpation (GI): Soft to palpation, not firm, nontender and No hepatosplenomegaly present Auscultation: normal bowel sounds General: Yes no CVA tenderness Back/Spine/Pelvis Back: no CVA tenderness Skin General skin exam: elasticity normal, turgor normal and dry skin Neuro General: patient oriented x3 Psych Appearance: grossly normal Mental Status: mental status grossly normal Assessment & Plan Assessment & Plan (1) Tubular adenoma of colon: Comment: 12/2017 Code(s): D12.6 - Benign neoplasm of colon, unspecified (2) Screen for colon cancer: Code(s): Z12.11 - Encounter for screening for malignant neoplasm of colon Plan Patient denies any GI, cardiac or respiratory symptoms.? Denies any issues with anesthesia in the past.? Denies any history of sleep apnea.? No history infectious diseases in the past or present.? Patient is on low-dose aspirin.? History of coronary bypass about 2 years ago or so. Patient was followed up by shift supervisor film processing, Dr. Patterson. Last seen in January and follow-up appointment was made in 1 year. Patient is asymptomatic for any cardiac or respiratory symptoms may proceed with booking the procedure. No family or personal history of colon cancer or polyps.? Patient denies melena, hematochezia, unintentional weight loss or ribbon like stools.? Discussed at length the pre-procedure,? prep, diet & medications as well as what to expect prior, during and after the procedure.?? Stressed the importance of good bowel prep. ?Recommended the use of Vaseline or Calmoseptine OTC & baby wipes with bowel movements to promote comfort.? ?Patient verbalizes understanding and agrees to plan of care.? She was given the opportunity to ask questions and all questions answered.? We will see her after the procedure.? Medications: New bisacodyl (Dulcolax (bisacodyl)) take 4 tabs at noon the day before your colonoscopy 20 mg (4 x 5 mg) PO ONCE 1 day 4 tabs 0RF Z12.11 - Encounter for screening for malignant neoplasm of colon polyethylene glycol 3350 (Miralax) As directed by gastroenterology department at [facility] 238 grams PO ONCE 238 grams 0RF Z12.11 - Encounter for screening for malignant neoplasm of colon Coding Level of Care Code New Pt Level 3 (06185) Diagnoses Tubular adenoma of colon D12.6 Screen for colon cancer Z12.11 Time Spent (min) 40 Comment 30 minutes spent with patient and additional 10 minutes spent reviewing her records
[2023-05-03 10:46] VITALS: BP 142/70; PULSE 78; BMI 34.4
== END 2023-05-03 11:28 | disposition home or self-care (01) ==
PROVIDERS: PCP Internal Medicine; Visit Provider Nurse Practitioner Family
DX: D12.6 Benign neoplasm of colon, unspecified (principal); Z12.11 Encounter for screening for malignant neoplasm of colon
CPT/HCPCS: 99203

== ENCOUNTER → 2023-05-03 10:40 | Outpatient (BNVA) | payer MEDICARE, SELFPAY | PROVIDERS: PCP Internal Medicine; Visit Provider Nurse Practitioner Family | DX: Z01.818 Encounter for other preprocedural examination (principal); Z86.010 Personal history of colon polyps | CPT/HCPCS: 99202 ==

== ENCOUNTER 2023-05-11 16:21 | Outpatient (REF) | payer OTHER, SELFPAY ==
[2023-05-11 17:45] LABS: Appearance Urine Turbid; Color Urine Yellow; Glucose Urine UA Negative (Negative); Leukocyte Esterase Urine Moderate (2+) (Negative); Nitrite Urine Negative (Negative); PH 5.5 (5.0-9.0); Specific Gravity - Urine 1.015 (1.005-1.025); UMIC TRIGGER UACC YES; Urine Blood Moderate (2+) (Negative); Urine Ketones Negative (Negative); Urine Protein 300 (3+) mg/dL (Neg-Trace)
[2023-05-11 17:48] LABS: Bacteria Urine 4+ (None Seen); Hyaline Casts Urine 0-2 /LPF (0-2); UACC Culture Trigger YES; WBC Urine >50 /HPF (0-5)
== END 2023-05-11 16:22 | disposition home or self-care (01) ==
LOC: HO.LAB 16:21
PROVIDERS: PCP Internal Medicine; Visit Provider Internal Medicine
DX: R30.0 Dysuria (principal)
CPT/HCPCS: 81001; 87086; 87088; 87186

== ENCOUNTER 2023-07-31 09:35 | Outpatient (AMB) | payer MEDICARE, SELFPAY ==
[2023-07-31 09:40] VITALS: BP 152/82; PULSE 75; O2SAT 97; BMI 35.0
--- NOTE | 2023-07-31 09:40 | A.OFFPC_ITS ---
Vital Signs 07/31/23 09:40 07/31/23 10:31 Height 5 ft 4 in Weight 204 lb BMI 35.0 BP 152/82 H 124/60 Blood Pressure Location Lt brachial Lt brachial Position Sitting Sitting Pulse 75 Pulse Source Pulse Oximeter Pulse Oximetry (%) 97 Oxygen Delivery Method Room Air Intake Visit Reasons: Diabetes mellitus Intake Note: Patient in right leg and right arm. Allergies No Known Allergies [No Known Allergies*] Allergy (Verified 07/31/23 09:40) Tobacco use date assessed: 04/13/23 Fall risk assessment: No Falls in past year Last assessed Fall Risk: 07/31/23 Dental Screening Dental Screen Date: 04/13/23 HPI Diabetes mellitus HPI Details 77-year-old female obese with controlled diabetes mellitus coronary artery disease hypertension hypercholesterolemia last seen in April 2023. Patient's colonoscopy is December 2017 declined mammogram bone density was normal in 2018. June 2023 A1c was 7.3. woke up 2 weeks ago R arm pain and also R groin pain deny fall or trauma [facility] Medical History COVID-19 virus infection Obesity (BMI 30-39.9) Diabetic nephropathy Essential hypertension Lab test positive for detection of COVID-19 virus Toxic multinodular goiter Tubular adenoma of colon Coronary artery disease Hypercholesterolemia Type 2 diabetes mellitus with hyperglycemia Surgical History Hx of colonoscopy Status post coronary artery bypass graft History of coronary artery bypass graft x 3 (~09/17/19) History of cardiac catheterization (~09/16/19) History of total left knee replacement H/O umbilical hernia repair S/P lumpectomy, left breast Family History Father No problems noted. Mother No problems noted. Social History Housing: Apartment Alcohol intake: current Alcohol intake frequency: holidays/special occasions only Patient Tobacco Use Status: Former Tobacco user (10 years ago ) Tobacco use type: Cigarette Years Smoked: 1999 quit e-Cigarette/Vaping Use: Never Used Second Hand Smoke Exposure: No Advance Directives Date on File: 01/08/20 service: No Current occupational status: retired Cognitive needs: Yes (cane ) Hearing needs: No Vision needs: Yes (glasses) Questionnaire PHQ-9 Over the last 2 weeks, how often have you been bothered by any of the following problems? 1. Little interest or pleasure in doing things: not at all 2. Feeling down, depressed, or hopeless: not at all 3. Trouble falling or staying asleep, or sleeping too much: not at all 4. Feeling tired or having little energy: not at all 5. Poor appetite or overeating: not at all 6. Feeling bad about yourself - or that you are a failure or have let yourself or your family down: not at all 7. Trouble concentrating on things, such as reading the newspaper or watching television: not at all 8. Moving or speaking so slowly that other people could have noticed. Or the opposite - being so fidgety or restless that you have been moving around a lot more than usual: not at all 9. Thoughts that you would be better off or of hurting yourself in some way: not at all Total score: 0 Depression Screening Interpretation: Negative Depression Screening Done: Yes Source: Developed by Drs. Reid Pena, Claribel Gomez, Randy Dukes and colleagues, with an educational bala from [employer]. Thrive Questionnaire Date Thrive assessed: 04/13/23 AUDIT C Alcohol Use Questionnaire (AUDIT-C) 1. How often do you have a drink containing alcohol?: Monthly or less 2. How many drinks containing alcohol do you have on a typical day when you are drinking?: 1 or 2 3. How often do you have six or more drinks on one occasion?: Never Total Score: 1 ROSARIO-7 AMB Questionnaire ROSARIO-7 Date ROSARIO - 7 assessed: 04/13/23 Source: Developed by Drs. Reid Pena, Randy Erazo and colleagues, with an educational bala from [employer]. Physical exam (Primary Care) Vital Signs: Last Vital Signs Pulse 75 07/31/23 09:40 BP 152/82 H 07/31/23 09:40 Pulse Ox 97 07/31/23 09:40 Oxygen Delivery Method Room Air 07/31/23 09:40 BMI result Body Mass Index 35.0 Tobacco/Smoking Status: Tobacco use Status Tobacco use date assessed 04/13/23 07/31/23 09:42 Patient Tobacco Use Status Former Tobacco user (10 07/31/23 09:42 years ago ) Tobacco use type Cigarette 07/31/23 09:42 e-Cigarette/Vaping Use Never Used 07/31/23 09:42 PHQ-9: PHQ-9 Score PHQ-9: Total score 0 07/31/23 10:01 Depression Screening Interpretation: Negative Thrive Assessment: Date of Thrive Assessment Date Thrive assessed 04/13/23 07/31/23 09:42 Const General: alert; No acute distress Eyes Conjunctivae: conjunctivae normal Resp Auscultation: clear to auscultation bilaterally Cardio Rate: regular rate Rhythm: regular rhythm GI Inspection: Yes normal to inspection Extrem General: Yes normal to inspection and No edema Results AMB Hemoglobin A1c AMB Hemoglobin A1c 6.0 % Last Edit by Lory Crane CMA on 07/31/23 10 :02 Results Reviewed Results Reviewed: Laboratory Last Values Hgb A1c (Clinic) 6.0 % (4.0-6.0) 07/31/23 09:44 Assessment and Plan Assessment & Plan (1) Type 2 diabetes mellitus with hyperglycemia: Comment: [facility] Code(s): E11.65 - Type 2 diabetes mellitus with hyperglycemia Qualifiers: Diabetes mellitus residential insulin use: with parts counterman use Qualified Code(s): E11.65 - Type 2 diabetes mellitus with hyperglycemia; Z79.4 - senior living (current) use of insulin Plan: Decrease the amount of carbohydrate intake, pasta, bread, rice and potatoes are all sugar and that is aside from all the sweet stuff, remember that fruits are good but they are Sweet also. Hemoglobin A1c goal of less than 7.0. Patient is on insulin NovoLog Lantus metformin (2) Hypercholesterolemia: Comment: March 2022 Code(s): E78.00 - Pure hypercholesterolemia, unspecified Plan: Avoid fried foods, chicken skin, eggs, butter margarine, pastries and meat. Be it pork or beef they have a lot of cholesterol atorvastatin 80 mg once a day LDL goal of less than 70 and triglyceride of less than 150 (3) Coronary artery disease: Comment: nuclear stress test positive September 2019 EF 60 % moderate a symmetrical septal hypertrophy, catheterization done and bypass September 2019 CABG x3 Code(s): I25.10 - Atherosclerotic heart disease of [place] coronary artery without angina pectoris Qualifiers: Coronary Disease-Associated Artery/Lesion type: [place] artery [place] vs. transplanted heart: [place] heart Associated angina: without angina Qualified Code(s): I25.10 - Atherosclerotic heart disease of [place] coronary artery without angina pectoris Plan: Control the cholesterol, weight, blood pressure, diabetes continue with aspirin 81 mg once (4) Essential hypertension: Code(s): I10 - Essential (primary) hypertension Plan: Continue with blood pressure medication. Decrease salt intake and exercise amlodipine 5 mg once a day lisinopril 30 mg once a day metoprolol 25 mg once a day (5) Obesity (BMI 30-39.9): Code(s): E66.9 - Obesity, unspecified Plan: Diet and exercise (6) Right shoulder pain: Code(s): M25.511 - Pain in right shoulder (7) Right knee pain: Code(s): M25.561 - Pain in right knee Orders: Orders AMB Hemoglobin A1c Today Z13.9 - Encounter for screening, unspecified PT Evaluation and Treatment Today M25.511 - Pain in right shoulder, M25.561 - Pain in right knee XR knee RT 2V Today M25.561 - Pain in right knee XR hip RT min 2V Today M25.561 - Pain in right knee Medications: New meloxicam 7.5 mg PO DAILY 30 tabs 0RF M25.511 - Pain in right shoulder Coding Level of Care Code Est Pt Level 4 (51922) Diagnoses Type 2 diabetes mellitus with hyperglycemia, with long-term current use of insulin E11.65; Z79.4 Diabetes mellitus parts counterman insulin use: with parts counterman use Hypercholesterolemia E78.00 Coronary artery disease involving [place] coronary artery of [place] heart without angina pectoris I25.10 Coronary Disease-Associated Artery/Lesion type: [place] artery [place] vs. transplanted heart: [place] heart Associated angina: without angina Essential hypertension I10 Obesity (BMI 30-39.9) E66.9 Right shoulder pain M25.511 Right knee pain M25.561
[2023-07-31 10:31] VITALS: BP 124/60
== END 2023-07-31 10:36 | disposition home or self-care (01) ==
PROVIDERS: PCP Internal Medicine; Visit Provider Internal Medicine
DX: E11.65 Type 2 diabetes mellitus with hyperglycemia (principal); Z79.4 Long term (current) use of insulin; E78.00 Pure hypercholesterolemia, unspecified; I25.10 Atherosclerotic heart disease of native coronary artery without angina pectoris; I10 Essential (primary) hypertension; M25.511 Pain in right shoulder; M25.561 Pain in right knee
CPT/HCPCS: 83036; 99214

== ENCOUNTER 2023-08-09 07:57 | Day surgery (SDC) | payer OTHER, SELFPAY ==
--- NOTE | 2023-08-07 14:24 | HO.ANESPROP2 ---
Documented by User: Pennie Mckinnon NP 08/07/23 14:25 HPI - Anesthesia Eval Consult details Narrative: 77yo F for Colonoscopy [place] [facility] s/p CABG 2019. Last office visit 01/2023 - stable. [facility] Active Problems Active Problems: All Active Problems Right knee pain (Acute) Right shoulder pain (Acute) Dysuria (Acute) Peripheral neuropathy (Acute) Tubular adenoma of colon (Acute) Upper respiratory tract infection (Acute) Otalgia of left ear (Acute) Bicipital tendinitis of left shoulder (Acute) Ovarian mass, right (Acute) Low back pain (Acute) Hearing impairment (Acute) Breast cancer screening by mammogram (Acute) Toxic multinodular goiter (Acute) Knee osteoarthritis (Acute) Annual physical exam (Acute) Mammogram declined (Acute) Preoperative cardiovascular examination (Acute) Abnormal TSH (Acute) Urinary incontinence (Acute) Obesity (BMI 30-39.9) (Acute) Shortness of breath (Acute) Essential hypertension (Acute) Status post coronary artery bypass graft (Acute) Epistaxis (Acute) Coronary artery disease (Acute) Hypercholesterolemia (Acute) Type 2 diabetes mellitus with hyperglycemia (Acute) Past Medical History Medical History COVID-19 virus infection Obesity (BMI 30-39.9) Diabetic nephropathy Essential hypertension Lab test positive for detection of COVID-19 virus Toxic multinodular goiter Tubular adenoma of colon Coronary artery disease Hypercholesterolemia Type 2 diabetes mellitus with hyperglycemia Family History Family History Father No problems noted. Mother No problems noted. Surgical History Surgical History Hx of colonoscopy Status post coronary artery bypass graft History of coronary artery bypass graft x 3 (~09/17/19) History of cardiac catheterization (~09/16/19) History of total left knee replacement H/O umbilical hernia repair S/P lumpectomy, left breast Social History Social History Housing: Apartment Alcohol intake: current Alcohol intake frequency: holidays/special occasions only Patient Tobacco Use Status: Former Tobacco user Tobacco use type: Cigarette Years Smoked: 1999 quit e-Cigarette/Vaping Use: Never Used Second Hand Smoke Exposure: No Use of substances other than those prescribed or required for medical reasons: No Are you DNR?: No Advance Directives: No Advance Directives Information Provided: Yes Advance Directives Date on File: 01/08/20 service: No Current occupational status: retired Cognitive needs: Yes (cane ) Hearing needs: No Vision needs: Yes (glasses) Meds Allergies Allergy/AdvReac Type Severity Reaction Status Date / Time No Known Allergies Allergy Verified 07/31/23 09:40 [No Known Allergies*] Home Medications ?Medication ?Instructions ?Recorded ?Confirmed ?Last Taken ?Type aspirin 81 mg tablet,delayed 81 mg PO DAILY 06/21/20 04/13/23 Unknown History release flash glucose sensor (FreeStyle 09/07/22 04/13/23 Unknown History Kisha 2 Sensor kit) insulin aspart U-100 100 unit/mL 8 - 36 unit subcut TID 09/07/22 04/13/23 Unknown History (3 mL) subcutaneous pen (Novolog FlexPen U-100 Insulin aspart) insulin glargine 100 unit/mL (3 27 unit subcut DAILY 04/13/23 04/13/23 Unknown History mL) subcutaneous pen blood-glucose meter ([employer] #1 ea 05/03/23 Unknown History Ultra2 Meter) cholecalciferol (vitamin D3) 25 25 mcg PO DAILY 05/03/23 Unknown History mcg (1,000 unit) capsule Exam Narrative Narrative: EKG 01/2023 sinus rhythm at 82/Min; occasional PVCs; cannot exclude old inferior infarct; ST-T changes in lateral/anterolateral leads. Overall, similar to prior. Holter 2022 Total monitoring time about 6 days. Underlying rhythm is sinus. Average ventricular rate 70/Min. Range 55 to 111/Min. Frequent supraventricular ectopy with a burden of 7.5%. Occasional ventricular ectopy with a burden of 0.7%. 2 couplets, 1 triplet, occasional bigeminy, trigeminy. One run of 3 beats. No significant pauses or AV blocks. No patient markers or events diary. Assessment and Plan Assessment Anesthesia Assessment: Chart Reviewed Documented by User: Damion Godwin MD 08/09/23 10:43 [facility] Past Medical History Medical History COVID-19 virus infection Obesity (BMI 30-39.9) Diabetic nephropathy Essential hypertension Lab test positive for detection of COVID-19 virus Toxic multinodular goiter Tubular adenoma of colon Coronary artery disease Hypercholesterolemia Type 2 diabetes mellitus with hyperglycemia Family History Family History Father No problems noted. Mother No problems noted. Family history of problems with anesthesia: No Surgical History Surgical History Hx of colonoscopy Status post coronary artery bypass graft History of coronary artery bypass graft x 3 (~09/17/19) History of cardiac catheterization (~09/16/19) History of total left knee replacement H/O umbilical hernia repair S/P lumpectomy, left breast History of Problems with Anesthesia: No Social History Social History Housing: Apartment Alcohol intake: current Alcohol intake frequency: holidays/special occasions only Patient Tobacco Use Status: Former Tobacco user Tobacco use type: Cigarette Years Smoked: 2000 quit e-Cigarette/Vaping Use: Never Used Second Hand Smoke Exposure: No Use of substances other than those prescribed or required for medical reasons: No Are you DNR?: No Advance Directives: No Advance Directives Information Provided: Yes Advance Directives Date on File: 01/08/20 service: No Current occupational status: retired Cognitive needs: Yes (cane ) Hearing needs: No Vision needs: Yes (glasses) Narrative Narrative: Doing well since CABG. No anginal sx. Meds Allergies Allergy/AdvReac Type Severity Reaction Status Date / Time No Known Allergies Allergy Verified 07/31/23 09:40 [No Known Allergies*] Home Medications ?Medication ?Instructions ?Recorded ?Confirmed ?Last Taken ?Type aspirin 81 mg tablet,delayed 81 mg PO DAILY 06/21/20 04/13/23 Unknown History release flash glucose sensor (FreeStyle 09/07/22 04/13/23 Unknown History Kisha 2 Sensor kit) insulin aspart U-100 100 unit/mL 8 - 36 unit subcut TID 09/07/22 04/13/23 Unknown History (3 mL) subcutaneous pen (Novolog FlexPen U-100 Insulin aspart) insulin glargine 100 unit/mL (3 27 unit subcut DAILY 04/13/23 04/13/23 Unknown History mL) subcutaneous pen blood-glucose meter (OneTouch #1 ea 05/03/23 Unknown History Ultra2 Meter) cholecalciferol (vitamin D3) 25 25 mcg PO DAILY 05/03/23 Unknown History mcg (1,000 unit) capsule Exam Airway Mallampati Class: II TM Dist: <=3cm Neck ROM: Full Denture: Upper Heart: ok Lungs: ok Assessment and Plan Assessment Anesthesia Assessment: Anesthesia Plan Discussed Final Anesthetic Review Family History of Problems with Anesthesia: No History of Problems with Anesthesia: No NPO: Yes ASA Class: III Final Preanesthetic Review: No Changes in Pt Med Stat, Meds/Allgs Chart Reviewed, Consent Obtained/Reviewed and Anes Risks/Benef Reviewed Patient Risk: High Procedure Risk: Low Anesthetic Plan Anesthetic Plan: MAC: and Agree w/ Assess. and Plan Disposition: Standard PACU
--- OUTSIDE RECORDS SUMMARY | 2023-08-09 08:00 | XMS_ITS | Continuity of Care Document ---
Author Organization [facility] Address [address] [place] [address]- Care Team Providers Care [employer]oples[employer] Business Analyst Name Role Phone Po Ry ARIAS Primary Care Physician [phone] Encounter 09/25/19 - 11/20/19 [facility] [address] [place] [address]- [facility] Discharge Disposition: GOALS MET Allergies, Adverse Reactions, Alerts Substance Reaction Severity Status NKA Active Medications aspirin 81 mg oral delayed release tablet = 81 mg, By Mouth, Daily in AM, # 30 tablet, 0 Refills, Maintenance, 09/24/19 11:12:00 EDT, EC Tablet, [facility], 163, cm, 09/24/19 8:25:00 EDT, Height, 86.5, kg, 09/16/19 17:32:00 EDT, Dry Weight Start Date: 09/24/19 Status: Ordered atorvastatin 80 mg oral tablet 1 tablet = 80 mg, By Mouth, Daily at bedtime, # 30 tablet, 0 Refills, Maintenance, 09/24/19 11:12:00 EDT, Tablet, [facility], 163, cm, 09/24/19 8:25:00 EDT, Height, 86.5, kg, 09/16/19 17:32:00 EDT, Dry Weight Start Date: 09/24/19 Status: Ordered insulin lispro 100 u/ml subcutaneous injection 2-14 units, Subcutaneous Injection, 3 times a day before meals, # 15 mL, 0 Refills, Maintenance, 09/24/19 11:15:00 EDT, Injection, [facility], Ok to switch to the pen if insurance covers, 163, cm, 09/24/19 8:25:00 EDT, Height, 86.5, kg,... Start Date: 09/24/19 Status: Ordered Lantus Inj See Instructions, 30 U (0.3 mL) Subcutaneous Injection Daily at supper from 11/06 to 11/09. 25 ml (0.25 ml) Subcutaneous injection daily at supper from 11/10 onwards., 0 Refills, Maintenance, 09/24/19 11:13:00 EDT, Injection Start Date: 09/24/19 Status: Ordered lisinopril 20 mg oral tablet 20 mg, 1, tablet, By Mouth, Daily, # 30 tablet, Refills 0, Tot. Refills 0, Maintenance, 09/24/19 11:13:00 EDT, Route to Pharmacy Electronically, [facility], 163, cm, 09/24/19 8:25:00 EDT, Height, 86.5, kg, 09/16/19 17:32:00 EDT, Dry Weight Start Date: 09/24/19 Status: Ordered metoprolol 25 mg oral tablet 25 mg, 1, tablet, By Mouth, 2 times a day, # 60 tablet, Refills 0, Tot. Refills 0, Maintenance, 09/24/19 11:16:00 EDT, Route to Pharmacy Electronically, [facility], 163, cm, 09/24/19 8:25:00 EDT, Height, 86.5, kg, 09/16/19 17:32:00 EDT,... Start Date: 09/24/19 Status: Ordered Plavix 75 mg oral tablet 75 mg, 1, tablet, By Mouth, Daily, # 30 tablet, Refills 0, Tot. Refills 0, Maintenance, 09/24/19 11:15:00 EDT, Route to Pharmacy Electronically, [facility], 163, cm, 09/24/19 8:25:00 EDT, Height, 86.5, kg, 09/16/19 17:32:00 EDT, Dry Weight Start Date: 09/24/19 Status: Ordered torsemide 20 mg oral tablet 0.5 tablet = 10 mg, By Mouth, Daily before breakfast, # 30 tablet, 0 Refills, Maintenance, 09/23/2010:16:00 EDT, Tablet, [facility], 163, cm, 09/24/19 8:25:00 EDT, Height, 86.5, kg, 09/16/19 17:32:00 EDT, Dry Weight Start Date: 09/24/19 Status: Ordered Vitamin D3 By Mouth, 0 Refills, Maintenance, 09/26/13 11:16:43 Start Date: 09/26/13 Status: Ordered Problem List Condition Effective Dates Status Health Status Inform ant GERD (gastroesophageal reflu x disease)(Confirmed) Active HLD (hyperlipidemia)(Confirmed) Active HTN (hypertension)(Confirmed) Active Knee pain, bilateral(Confirmed) Active Obesity(Confirmed) Active Osteoarthritis(Confirmed) Active Neuropathic pain of left low er extremity(Confirmed) Active DM2 (diabetes mellitus, type 2)(Confirmed) Active Umbilical hernia(Confirmed) Active Social History Social History Type Response Smoking Status Former smoker entered on: 07/27/16 Sex
--- OUTSIDE RECORDS SUMMARY | 2023-08-09 08:00 | XMS_ITS | Continuity of Care Document ---
Author Organization [facility] Address [address] [place] [id number]- Care Team Providers Care Executive Legal Secretary Name Role Phone Po Ry ARIAS Primary Care Physician Encounter [facility] Date(s): 10/02/19 - 11/01/19 [facility] [address] [place] [id number]- [facility] Attending Physician: Claire Escamilla Admitting Physician: AdmtrClaire Referring Physician: Admtr, Ar8 Allergies, Adverse Reactions, Alerts Substance Reaction Severity Status NKA Active Medications amiodarone 200 mg oral tablet 200 mg, 1, tablet, By Mouth, 2 times a day, Stop taking after 30 days, # 60 tablet, Refills 0, Tot.Refills 0, Maintenance, 09/24/19 11:14:00 EDT, Route to Pharmacy Electronically, [facility], 163, cm, 09/24/19 8:25:00 EDT, Height, 86.5,... Start Date: 09/24/19 Stop Date: 10/24/19 Status: Ordered aspirin 81 mg oral delayed release tablet = 81 mg, By Mouth, Daily in AM, # 30 tablet, 0 Refills, Maintenance, 09/24/19 11:12:00 EDT, EC Tablet, [facility], 163, cm, 09/24/19 8:25:00 EDT, Height, 86.5, kg, 09/16/19 17:32:00 EDT, Dry Weight Start Date: 09/24/19 Status: Ordered atorvastatin 80 mg oral tablet 1 tablet = 80 mg, By Mouth, Daily at bedtime, # 30 tablet, 0 Refills, Maintenance, 09/24/19 11:12:00 EDT, Tablet, [facility], 163, cm, 09/24/19 8:25:00 EDT, Height, 86.5, kg, 09/16/19 17:32:00 EDT, Dry Weight Start Date: 09/24/19 Status: Ordered insulin lispro 100 u/ml subcutaneous injection 2-14 units, Subcutaneous Injection, 3 times a day before meals, # 15 mL, 0 Refills, Maintenance, 09/24/19 11:15:00 EDT, Injection, [facility], Ok to switch to the pen if insurance covers, 163, cm, 09/24/19 8:25:00 EDT, Height, 86.5, kg,... Start Date: 09/24/19 Status: Ordered Lantus Inj 0.2 mL = 20 units, Subcutaneous Injection, Daily at supper, 0 Refills, Maintenance, 09/24/19 11:13:00 EDT, Injection Start Date: 09/24/19 Status: Ordered lisinopril 20 mg oral tablet 20 mg, 1, tablet, By Mouth, Daily, # 30 tablet, Refills 0, Tot. Refills 0, Maintenance, 09/24/19 11:13:00 EDT, Route to Pharmacy Electronically, [facility], 163, cm, 09/24/19 8:25:00 EDT, Height, 86.5, kg, 09/16/19 17:32:00 EDT, Dry Weight Start Date: 09/24/19 Status: Ordered metformin 500 mg oral tablet 1 each = 500 mg, By Mouth, 2 times a day, 0 Refills, Maintenance, 01/28/14 8:55:22, Tablet Start Date: 01/28/14 Status: Ordered metoprolol 25 mg oral tablet 25 mg, 1, tablet, By Mouth, 2 times a day, # 60 tablet, Refills 0, Tot. Refills 0, Maintenance, 09/24/19 11:16:00 EDT, Route to Pharmacy Electronically, [facility], 163, cm, 09/24/19 8:25:00 EDT, Height, 86.5, kg, 09/16/19 17:32:00 EDT,... Start Date: 09/24/19 Status: Ordered Plavix 75 mg oral tablet 75 mg, 1, tablet, By Mouth, Daily, # 30 tablet, Refills 0, Tot. Refills 0, Maintenance, 09/24/19 11:15:00 EDT, Route to Pharmacy Electronically, [facility], 163, cm, 09/24/19 8:25:00 EDT, Height, 86.5, kg, 09/16/19 17:32:00 EDT, Dry Weight Start Date: 09/24/19 Status: Ordered torsemide 20 mg oral tablet 1 tablet = 20 mg, By Mouth, Daily before breakfast, # 30 tablet, 0 Refills, Maintenance, 09/24/19 11:16:00 EDT, Tablet, [facility], 163, cm, 09/24/19 [...]
--- OUTSIDE RECORDS SUMMARY | 2023-08-09 08:00 | XMS_ITS | Continuity of Care Document ---
Author Organization [facility] Address [address] [place] [address]- Care Team Providers Care Senior Product Consultant Name Role Phone Ry Soriano MD Primary Care Physician [phone] Encounter [facility] Date(s): 12/24/19 - 12/31/19 [facility] [address] [place] [address]- [facility] Attending Physician: Rory ARIAS, Braydon Referring Physician: Sujit Patterson MD Allergies, Adverse Reactions, Alerts Substance Reaction Severity Status NKA Active Medications aspirin 81 mg oral delayed release tablet = 81 mg, By Mouth, Daily in AM, # 30 tablet, 0 Refills, Maintenance, 09/24/19 11:12:00 EDT, EC Tablet, [facility], 163, cm, 09/24/19 8:25:00 EDT, Height, 86.5, kg, 09/16/19 17:32:00 EDT, Dry Weight Start Date: 09/24/19 Status: Ordered atorvastatin 80 mg oral tablet 1 tablet = 80 mg, By Mouth, Daily at bedtime, # 30 tablet, 0 Refills, Maintenance, 09/24/19 11:12:00 EDT, Tablet, [facility], 163, cm, 09/24/19 8:25:00 EDT, Height, 86.5, kg, 09/16/19 17:32:00 EDT, Dry Weight Start Date: 09/24/19 Status: Ordered insulin lispro 100 u/ml subcutaneous injection 2-14 units, Subcutaneous Injection, 3 times a day before meals, # 15 mL, 0 Refills, Maintenance, 09/24/19 11:15:00 EDT, Injection, [facility], Ok to switch to the pen [...] 09/24/19 11:13:00 EDT, Route to Pharmacy Electronically, [facility], 163, cm, 09/24/19 8:25:00 EDT, Height, 86.5, kg, 09/16/19 17:32:00 EDT, Dry Weight Start Date: 09/24/19 Status: Ordered metoprolol 25 mg oral tablet 25 mg, 1, tablet, By Mouth, 2 times a day, # 60 tablet, Refills 0, Tot. Refills 0, Maintenance, 09/24/19 11:16:00 EDT, Route to Pharmacy Electronically, [facility] 3, 163, cm, 09/24/19 8:25:00 EDT, Height, 86.5, kg, 09/16/19 17:32:00 EDT,... Start Date: 09/24/19 Status: Ordered Plavix 75 mg oral tablet 75 mg, 1, tablet, By Mouth, Daily, # 30 tablet, Refills 0, Tot. Refills 0, Maintenance, 09/24/19 11:15:00 EDT, Route to Pharmacy Electronically, [facility], 163, cm, 09/24/19 8:25:00 EDT, Height, 86.5, kg, 09/16/19 17:32:00 EDT, Dry Weight Start Date: 09/24/19 Status: Ordered torsemide 20 mg oral tablet 0.5 tablet = 10 mg, By Mouth, Daily before breakfast, # 30 tablet, 0 Refills, Maintenance, 09/23/2010:16:00 EDT, Tablet, [facility], 163, cm, 09/24/19 8:25:00 EDT, [...]
--- OUTSIDE RECORDS SUMMARY | 2023-08-09 08:00 | XMS_ITS | Continuity of Care Document ---
Author Organization [facility] Address [address] [place] [address]- Care Team Providers Care Hot Mill Supervisor Name Role Phone Po Ry ARIAS Primary Care Physician Encounter [facility] Date(s): 10/31/19 - 11/30/19 [facility] Card[facility] Surgery [address] [address]- [facility] Allergies, Adverse Reactions, Alerts Substance Reaction Severity Status NKA Active Medications aspirin 81 mg oral delayed release tablet = 81 mg, By Mouth, Daily in AM, # 30 tablet, 0 Refills, Maintenance, 09/24/19 11:12:00 EDT, EC Tablet, [facility], 163, cm, 09/24/19 8:25:00 EDT, Height, 86.5, kg, 09/16/19 17:32:00 EDT, Dry Weight Start Date: 09/24/19 Status: Ordered atorvastatin 80 mg oral tablet 1 tablet = 80 mg, By Mouth, Daily at bedtime, # 30 tablet, 0 Refills, Maintenance, 09/24/19 11:12:00 EDT, Tablet, [facility], 163, cm, 09/24/19 8:25:00 EDT, Height, 86.5, kg, 09/16/19 17:32:00 EDT, Dry Weight Start Date: 09/24/19 Status: Ordered insulin lispro 100 u/ml subcutaneous injection 2-14 units, Subcutaneous Injection, 3 times a day before meals, # 15 mL, 0 Refills, Maintenance, 09/24/19 11:15:00 EDT, Injection, [facility], Ok to switch to the [...] 09/24/19 11:13:00 EDT, Route to Pharmacy Electronically, [facility], 163, cm, 09/24/19 8:25:00 EDT, Height, 86.5, kg, 09/16/19 17:32:00 EDT, Dry Weight Start Date: 09/24/19 Status: Ordered metoprolol 25 mg oral tablet 25 mg, 1, tablet, By Mouth, 2 times a day, # 60 tablet, Refills 0, Tot. Refills 0, Maintenance, 09/24/19 11:16:00 EDT, Route to Pharmacy Electronically, [facility], 163, cm, 09/24/19 8:25:00 EDT, Height, 86.5, kg, 09/16/19 17:32:00 EDT,... Start Date: 09/24/19 Status: Ordered Plavix 75 mg oral tablet 75 mg, 1, tablet, By Mouth, Daily, # 30 tablet, Refills 0, Tot. Refills 0, Maintenance, 09/24/19 11:15:00 EDT, Route to Pharmacy Electronically, [facility], 163, cm, 09/24/19 8:25:00 EDT, Height, 86.5, kg, 09/16/19 17:32:00 EDT, Dry Weight Start Date: 09/24/19 Status: Ordered torsemide 20 mg oral tablet 0.5 tablet = 10 mg, By Mouth, Daily before breakfast, # 30 tablet, 0 Refills, Maintenance, 09/23/2010:16:00 EDT, Tablet, [facility], 163, cm, 09/24/19 8:25:00 EDT, Height, [...]
--- OUTSIDE RECORDS SUMMARY | 2023-08-09 08:00 | XMS_ITS | Continuity of Care Document ---
Author Organization [facility] Address [address] [place] [address]- Care Team Providers Care Service Delivery Director Name Role Phone Po Ry ARIAS Primary Care Physician [place] [facility] [place] 10/31/19 - 11/07/[address] [address]- [facility] Discharge Disposition: A-Transfer VNA/Home Health Attending Physician: Bhanu ARIAS, Emanuel Fuller Admitting Physician: Noel Guzmán MD, Deangelo Antoine Referring Physician: Not on Staff, Referring MD Allergies, Adverse Reactions, Alerts Substance Reaction Severity Status NKA Active Medications aspirin 81 mg oral delayed release tablet = 81 mg, By Mouth, Daily in AM, # 30 tablet, 0 Refills, Maintenance, 09/24/19 11:12:00 EDT, EC Tablet, [facility], 163, cm, 09/24/19 8:25:00 EDT, Height, 86.5, kg, 09/16/19 17:32:00 EDT, Dry Weight Start Date: 09/24/19 Status: Ordered atorvastatin 80 mg oral tablet 1 tablet = 80 mg, By Mouth, Daily at bedtime, # 30 tablet, 0 Refills, Maintenance, 09/24/19 11:12:00 EDT, Tablet, [facility], 163, cm, 09/24/19 8:25:00 EDT, Height, 86.5, kg, 09/16/19 17:32:00 EDT, Dry Weight Start Date: 09/24/19 Status: Ordered dexamethasone 4 mg oral tablet 1.5 tablet = 6 mg, By Mouth, Daily, for 3 days, # 4.5 tablet, 0 Refills, Acute 11/10/19 10:53:01 EDT, 11/08/19 7:00:00 EDT, Tablet, [facility], 163, cm, 11/07/19 9:05:00 EDT, Height, 71, kg, 11/01/19 4:01:00 EDT, Dry Weight Start Date: 11/08/19 Stop Date: 11/10/19 Status: Ordered insulin lispro 100 u/ml subcutaneous injection 2-14 units, Subcutaneous Injection, 3 times a day before meals, # 15 mL, 0 Refills, Maintenance, 09/24/19 11:15:00 EDT, Injection, [facility], Ok to switch to the pen [...] 09/24/19 11:13:00 EDT, Route to Pharmacy Electronically, [facility] 3, 163, cm, 09/24/19 8:25:00 EDT, Height, 86.5, kg, 09/16/19 17:32:00 EDT, Dry Weight Start Date: 09/24/19 Status: Ordered metoprolol 25 mg oral tablet 25 mg, 1, tablet, By Mouth, 2 times a day, # 60 tablet, Refills 0, Tot. Refills 0, Maintenance, 09/24/19 11:16:00 EDT, Route to Pharmacy Electronically, [facility] 3, 163, cm, 09/24/19 8:25:00 EDT, Height, 86.5, kg, 09/16/19 17:32:00 EDT,... Start Date: 09/24/19 Status: Ordered Plavix 75 mg oral tablet 75 mg, 1, tablet, By Mouth, Daily, # 30 tablet, Refills 0, Tot. Refills 0, Maintenance, 09/24/19 11:15:00 EDT, Route to Pharmacy Electronically, [facility], 163, cm, 09/24/19 8:25:00 EDT, Height, 86.5, kg, 09/16/19 17:32:00 EDT, Dry Weight Start Date: 09/24/19 Status: Ordered torsemide 20 mg oral tablet 0.5 tablet = 10 mg, By Mouth, Daily before breakfast, # 30 tablet, 0 Refills, Maintenance, 09/23/2010:16:00 EDT, Tablet, [facility], 163, cm, 09/24/19 8:25:00 [...] mellitus, type 2)(Confirmed) Active Umbilical hernia(Confirmed) Active Results Orders for Microbiology Reports Name Date Urine Culture (Culture Urine) 11/04/19 Microbiology Reports TEST:Urine Culture STATUS:Auth (Verified) BODY SITE: SOURCE:URINE COLLECTED DATE/TIME:11/04/19 5:38 PM Urine Culture SPECIMEN DESCRIPTION : URINE CLEAN CATCH/MIDSTREAM SPECIAL REQUESTS : NONE CULTURE : >100,000 COL/ML ESCHERICHIA COLI REPORT STATUS : FINAL 11/06/2019 ORGANISM >100,000 COL/ML ESCHERICHIA COLI METHOD MIN. INHIB. CONC. (MCG/ML) AMPICILLIN RESISTANT AMPICILLIN/SULBACTAM RESISTANT AMOXICILLIN/CLAVULAN SUSCEPTIBLE CEFAZOLIN SUSCEPTIBLE CEFEPIME SUSCEPTIBLE CEFTRIAXONE SUSCEPTIBLE CIPROFLOXACIN SUSCEPTIBLE ERTAPENEM SUSCEPTIBLE GENTAMICIN SUSCEPTIBLE LEVOFLOXACIN SUSCEPTIBLE MEROPENEM SUSCEPTIBLE NITROFURANTOIN SUSCEPTIBLE PIPERACILLIN/TAZOBAC SUSCEPTIBLE TRIMETH/SULFAMETHOX SUSCEPTIBLE TETRACYCLINE SUSCEPTIBLE Radiology Reports * Exam Date Time Procedure Performing Provider Status 10/31/19 11:36 AM Chest Portable Ondina Yoon; Au th (Verified) Notes: (Chest Portable) Reason For Exam: Shortness of Breath RESULT: Chest Portable Chest Portable Reason: Shortness of Breath; Clinical Question(s): CHF COMPARISON: 10/29/2019 FINDINGS: LINES AND TUBES: None. LUNGS AND PLEURA: Clear lungs. Normal pulmonary vascularity. No pleural effusion. No pneumothorax. HEART, MEDIASTINUM AND NATALYA: Heart is normal in size. Normal mediastinal and hilar contour. BONES AND SOFT TISSUES: No acute abnormality. IMPRESSION: No acute abnormality. WSN: [id number] Ordering Physician: Chey Suggs Dictated By: Eden Plata MD Dictated Date/Time: 10/31/19 11:43 a Reviewed By: Eden Plata MD Signed By: Eden Plata MD Signed Date/Time: 10/31/19 11:43 am Transcribed By: HELDER Transcribed Date/Time: 10/31/19 11:42 am Vital Signs Most recent to oldest [Reference Range]: 1 2 3 4 Height 163 cm (11/07/19 9:05 AM) 163 cm (11/06/19 7:16 AM) 163 cm (11/05/19 8:48 AM) Weight 71 kg (11/01/19 3:57 AM) Oxygen Saturation [94-100 %] 93 % *L* (11/07/19 9:05 AM) 95 % (11/06/19 9:00 PM) 97 % (11/06/19 7:16 AM) Pulse Rate [55-90 bpm] 65 bpm (11/07/19 9:05 AM) 65 bpm (11/07/19 8:46 AM) 64 bpm (11/06/19 9:00 PM) Body Mass Index [18.5-24.99] 26.72 *H* (11/01/19 3:57 AM) Blood Pressure [90-138/55-84 mm Hg] 144/64mm Hg *H* (11/07/19 9:05 AM) 144/64mm Hg *H* (11/07/19 8:46 AM) 144/64mm Hg *H* (11/07/19 8:46 AM) 144/64mm Hg *H* (11/07/19 8:46 AM) Respiratory Rate [16-30 br/min] 18 br/min (11/07/19 9:05 AM) 18 br/min (11/06/19 9:00 PM) 17 br/min (11/06/19 7:16 AM) Temperature [96.8-100.4 DegF] 97.6 DegF (11/07/19 9:05 AM) 98.0 DegF (11/06/19 9:00 PM) 97.8 DegF (11/06/19 7:16 AM) Liters per Minute 1 L/min (11/04/19 9:14 AM) 2 L/min (11/04/19 9:10 AM) 2 L/min (11/04/19 9:05 AM) Mode of Delivery (Oxygen) Room air (11/07/19 9:05 AM) Room air (11/06/19 9:00 PM) Room air (11/06/19 7:16 AM) Blood pressure sites Arm, right (11/07/19 9:05 AM) Arm, right (11/06/19 9:00 PM) Arm, right (11/06/19 7:16 AM) Temperature Route Oral (11/07/19 9:05 AM) Oral (11/06/19 7:16 AM) Oral (11/05/19 7:00 PM) Dry Weight 71 kg (11/01/19 3:57 AM) Social History Social History Type Response Smoking Status Former smoker entered on: 07/27/16 Sex
--- OUTSIDE RECORDS SUMMARY | 2023-08-09 08:00 | XMS_ITS | Patient Health Record ---
Author Organization [facility] Address [address] [place] [place] [address] Care Team Providers Care Poultry Picker Name Role Phone Ry Soriano Primary Care Provider Enzo Hogan Unavailable [phone] ALLERGIES Allergen (clinical drug ingredient) Drug/Non Drug Allergy documented on EMR Reaction Allergy Type Onset Date Status Adhesive breakout Allergy Active RESULTS Component Value Reference Range Notes HEMOGLOBIN A1C (GLYCOHEMOGLO BIN) Reviewed date:06/15/2023 10:16:54 AM Interpretation: Performing Lab: Notes/Report: TOTAL HEMOGLOBIN (HGBA1C) HEMOGLOBIN A1C (HH) 7.0 HEMOGLOBIN A1C % (HH) ESTIMATED AVG GLUCOSE REASON FOR REFERRAL No Information MEDICATIONS Medication SIG (Take, Route, Frequency, Duration) Notes Start Date End Date Status Extra Depth Diabetic Shoes with 3 Pair Custom heat-molded multi-density innersoles for 1 year Dx: 06/15/2023 Active Vitamin D3 Active metFORMIN HCl 500 MG 1 tablet with a linda l Orally Once a day for 30 day(s) Active methIMAzole 5 MG 1 tablet Orally Once a day for 30 day(s) Active amLODIPine Besylate 5 MG 1 tablet Orally Once a day for 30 day(s) Active Torsemide 20 MG as directed Orally Active Atorvastatin Calcium 80 MG 1 tablet Oral ly Once a day for 30 day(s) Active Lisinopril 30 MG 1 tablet Orally Once a day for 30 day(s) Active Metoprolol Succinate 25 MG 1 capsule Ora lly Once a day for 30 day(s) Active Aspir-81 Active SOCIAL HISTORY Tobacco Use: Social History Observation Description Date Details (start date - stop date) Former Smoker NA - NA Sex Assigned At : Social History Observation Description Sex Assigned At Unknown Tobacco Use/Smoking Question Answer Notes Are you a: former smoker Alcohol Screen Question Answer Notes Did you have a drink containing alcohol in the p ast year? No Points 0 Interpretation Negative Tobacco use other than smoking: Question Answer Notes Are you an other tobacco user? No PROBLEMS Problem Type ICD Code Onset Dates Problem Status W/U Status Risk SNOMED Code Notes Problem Type 2 diabetes mellitus with diabetic polyneuropathy (E11.42) Active confirmed Polyneuropathy due to type 2 diabetes mellitus (569074893) VITAL SIGNS Height 5ft 5in in 06/15/2023 Weight 203 lbs 06/15/2023 BMI 33.78 kg/m2 06/15/2023 PROCEDURES Procedure Date Ordered Date Performed Result Body Sit e 36351-SMWJ SKIN LESIONS, 2 TO 4 06/15/2023 N/A Encounters Encounter Location Date Provider Diagnosis [facility] [address] [address] 06/15/2023 Enzo Jeffers Type 2 diabetes mellitus with diabetic polyneuropathy E11.42 ; Pain in right toe(s) M79.674 ; Tinea unguium B35.1 ; Pain in left toe(s) M79.675 ; Other viral warts B07.8 ; Pain in left foot M79.672 and Pain in right foot M79.671 ASSESSMENTS Encounter Date Diagnosis Assessment Notes Treatment Notes Treatment Clinical Notes 06/15/2023 Type 2 diabetes mellitus with diabetic polyneuropathy (ICD-10 - E11.42) Patient Educated with: DIABETIC FOOT CARE INSTRUCTIONS.pdf (DIABETIC FOOT CARE INSTRUCTIONS.pdf ) 06/15/2023 Pain in right toe(s) (ICD-10 - M79.674) 06/15/2023 Pain in left toe(s) (ICD-10 - M79.675) 06/15/2023 Tinea unguium (ICD-1 0 - B35.1) 06/15/2023 Other viral warts (ICD-10 - B07.8) 06/15/2023 Pain in left foot (ICD-10 - M79.672) 06/15/2023 Pain in right foot (ICD-10 - M79.671) PLAN OF TREATMENT Pending Test Test Name Order Date [id number] SKIN LESIONS, 2 TO 4 06/15/19 24 Next Appt Details Provider Name:Enzo Jeffers, 09/14/2023 09:15:00 AM, [address] [facility], [address], [place], [address], Insurance Providers Payer Name Payer Address Payer Phone Subscriber Number Group Number Insured Name Patient Relationship to Insured Coverage Start Date Coverage End Date [facility] [employer] Claims [address] [place] [id number] Lauren Crowley Self - patient is the insured MEDICAL (GENERAL) HISTORY Medical History History ICD Code Arthritis Back,Hip,and Knee pain Cataracts covid-19 Diabetic High blood pressure Reflux ( GERD) Chicken pox Surgical History Surgery Date(Month/Year) triple bypass 2020 knee replacement hysterectomy 2022
--- OUTSIDE RECORDS SUMMARY | 2023-08-09 08:00 | XMS_ITS | Continuity of Care Document ---
Author Organization [facility] Address [address] [place] [address]- Care Team Providers Care Surtass Analyst Name Role Phone Po Ry ARIAS Primary Care Physician [place] [facility] [place] 03/[place]/22 [facility] On[facility] [address] [place] [address] Attending Physician: Admtr, Claire Admitting Physician: Admtr, Ar8 Referring Physician: Admtr, Ar8 Allergies, Adverse Reactions, Alerts No Known Allergies Medications aspirin 81 mg oral delayed release tablet = 81 mg, By Mouth, Daily in AM, # 30 tablet, 0 Refills, Maintenance, 09/24/19 11:12:00 EDT, EC Tablet, [facility], 163, cm, 09/24/19 8:25:00 EDT, Height, 86.5, kg, 09/16/19 17:32:00 EDT, Dry Weight Start Date: 09/24/19 Status: Ordered atorvastatin 80 mg oral tablet 1 tablet = 80 mg, By Mouth, Daily at bedtime, # 30 tablet, 0 Refills, Maintenance, 09/24/19 11:12:00 EDT, Tablet, [facility], 163, cm, 09/24/19 8:25:00 EDT, Height, 86.5, kg, 09/16/19 17:32:00 EDT, Dry Weight Start Date: 09/24/19 Status: Ordered docusate sodium 100 mg oral capsule 1 capsule = 100 mg, By Mouth, 2 times a day, PRN as needed for constipation, # 60 capsule, 0 Refills, Maintenance, 12/26/21 17:13:00 EDT, Capsule, [facility], Partial fill upon patient request if the prescription is for a schedule II opi... Start Date: 12/26/21 Status: Ordered insulin lispro 100 u/ml subcutaneous injection 2-14 units, Subcutaneous Injection, 3 times a day before meals, # 15 mL, 0 Refills, Maintenance, 09/24/19 11:15:00 EDT, Injection, [facility], Ok to switch to the pen [...] 09/24/19 11:13:00 EDT, Route to Pharmacy Electronically, [facility], 163, cm, 09/24/19 8:25:00 EDT, Height, 86.5, kg, 09/16/19 17:32:00 EDT, Dry Weight Start Date: 09/24/19 Status: Ordered metFORMIN 500 mg oral tablet 1 tablet = 500 mg, By Mouth, 2 times a day, TAKE ONE TABLET BY MOUTH TWICE A DAY Start Date: 11/02/21 Status: Ordered metoprolol 25 mg oral tablet 25 mg, 1, tablet, By Mouth, 2 times a day, # 60 tablet, Refills 0, Tot. Refills 0, Maintenance, 09/24/19 11:16:00 EDT, Route to Pharmacy Electronically, [facility], 163, cm, 09/24/19 8:25:00 EDT, Height, 86.5, kg, 09/16/19 17:32:00 EDT,... Start Date: 09/24/19 Status: Ordered MiraLax oral powder for reconstitution = 17 Gm, By Mouth, Daily, dissolve in water before taking. take as needed for constipation., # 255 Gm, 0 Refills, Maintenance, 12/26/21 17:13:00 EDT, REC Powder, [facility], Partialfill upon patient request if the prescription is for a... Start Date: 12/26/21 Status: Ordered oxyCODONE 5 mg oral tablet 5 mg, 1, tablet, By Mouth, Every 6 hours, PRN, # 20 tablet, Refills 0, Tot. Refills 0, Maintenance,as needed for pain, 12/26/21 17:13:00 EDT, Route to Pharmacy Electronically, [facility], Partial fill upon patient request if the prescri... Start Date: 12/26/21 Status: Ordered simethicone 80 mg oral tablet, chewable 80 mg, 1, tablet, Chew, 4 times a day, Take as needed for gas pain, # 60 tablet, Refills 0, Tot. Refills 0, Maintenance, 12/26/21 17:13:00 EDT, Route to Pharmacy Electronically, [facility], Partial fill upon patient request if the prescr... Start Date: 12/26/21 Status: Ordered torsemide 20 mg oral tablet 0.5 tablet = 10 mg, By Mouth, Daily before breakfast, # 30 tablet, 0 Refills, Maintenance, 09/23/2010:16:00 EDT, Tablet, [facility], 163, cm, 09/24/19 8:25:00 EDT, Height, 86.5, kg, 09/16/19 17:32:00 EDT, Dry Weight Start Date: 09/24/19 Status: Ordered Tylenol 325 mg oral capsule 2 capsule = 650 mg, By Mouth, Every 4 hours, PRN Pain , Mild, # 90 capsule, 0 Refills, Maintenance,12/26/21 17:13:00 EDT, Capsule, [facility], Partial fill upon patient request if the prescription is for a schedule II opioid drug., 163,... Start Date: 12/26/21 Status: Ordered Vitamin D3 = 1,250 mcg, By Mouth, Daily, 0 Refills, Maintenance, 09/26/13 11:16:43 EDT Start Date: 09/26/13 Status: Ordered Problem List Condition Confirmation Course Effective Dates Status H ealth Status Informant GERD (gastroesophageal reflux disease) Confirmed Active HLD (hyperlipidemia) Confirmed Active HTN (hypertension) Confirmed Active Knee pain, bilateral Confirmed Active Obese class I Confirmed Active Obesity Confirmed Active Osteoarthritis Confirmed Active Neuropathic pain of left lower extremity Confirmed Active Follow-up examination after gynecological surgery Confirmed Active DM2 (diabetes mellitus, type 2) Confirmed Active Umbilical hernia Confirmed Active Social History Social History Type Response Smoking Status Former smoker, quit more than 30 days ago; Other: quit about 10 years ago; entered on: 11/21/21 Sex Note * Event Display: Cardiology Office Note, Non- Authored Date: Patient Care team information Care Team Personnel Name: Paty Galloway RN Position: [facility] AMB Nurse Member Role: Primary Care Nurse Name: Jennifer Miramontes RN Position: [facility] RN Member Role: Primary Care Nurse Name: Esme Burns RN Position: [facility] RN Member Role: Primary Care Nurse Name: Leatha Quevedo RN Position: [facility] Coper Hand Member Role: Primary Care Nurse Name: Anisha Lane NP Position: [facility] Associate Professional Member Role: Primary Care Nurse Address: Address: [address] [place] [address] [place] [address]- [place] Name: Tala Barroso RN Position: [facility] RN Member Role: Primary Care Nurse Name: Abi Mojica RN Position: [facility] RN Member Role: Primary Care Nurse Name: Ry Soriano MD Position: Reference Physician Member Role: PCP Address: Address: [address] [place] [address]- [place] Name: Deborah Mosquera RN Position: [facility] Onco RN Member Role: Primary Care Nurse Care Team Related Persons Name: MELIZA MORTENSEN Address: [address] [place] [address]
--- OUTSIDE RECORDS SUMMARY | 2023-08-09 08:00 | XMS_ITS | Continuity of Care Document ---
Author Organization [facility] [place] [employer] [facility] [facility] Address [address], [address] [place] [address]- Care Team Providers Care Silversmith Apprentice Name Role Phone Ry Soriano MD Primary Care Physician [phone] [id number] Date[facility]s): [facility]/13/21 - 02/01/22 [facility] [address], [address] [place], [place] [address] Attending Physician: Enma Moore MD Admitting Physician: Enma Moore MD Referring Physician: Ry Soriano MD Allergies, Adverse Reactions, Alerts No Known Allergies Medications aspirin 81 mg oral delayed release tablet = 81 mg, By Mouth, Daily in AM, # 30 tablet, 0 Refills, Maintenance, 09/24/19 11:12:00 EDT, EC Tablet, [facility], 163, cm, 09/24/19 8:25:00 EDT, Height, 86.5, kg, 09/16/19 17:32:00 EDT, Dry Weight Start Date: 09/24/19 Status: Ordered atorvastatin 80 mg oral tablet 1 tablet = 80 mg, By Mouth, Daily at bedtime, # 30 tablet, 0 Refills, Maintenance, 09/24/19 11:12:00 EDT, Tablet, [facility], 163, cm, 09/24/19 8:25:00 EDT, [...] 0 Refills, Maintenance, 09/24/19 11:15:00 EDT, Injection, [facility] 3, Ok to switch to the pen [...] 09/24/19 11:13:00 EDT, Route to Pharmacy Electronically, [facility] 3, 163, cm, 09/24/19 8:25:00 EDT, [...] 09/24/19 11:16:00 EDT, Route to Pharmacy Electronically, [facility] 3, 163, cm, 09/24/19 8:25:00 EDT, [...] tablet, 0 Refills, Maintenance, 09/23/2010:16:00 EDT, Tablet, [facility] 3, 163, cm, 09/24/19 8:25:00 [...] 10 years ago; entered on: 11/21/21 Sex Patient Care team information Personnel Name: Ry Soriano MD Address: Address: [address] [place] [address]
--- OUTSIDE RECORDS SUMMARY | 2023-08-09 08:01 | XMS_ITS | Continuity of Care Document ---
Author Organization [facility] ter Address [address] [place] [address]- Care Team Providers Care Checkout Operator Name Role Phone Po Ry ARIAS Primary Care Physician [place] [facility] [place]29/[place] - 10/30/[address] [address]- [facility] Encounter Diagnosis COVID-19 virus infection(Final) - 10/30/19 Discharge Disposition: A-D/C Home Attending Physician: Renny Sanches MD Admitting Physician: Renny Sanches MD Referring Physician: Not on Staff, Referring MD Allergies, Adverse Reactions, Alerts Substance Reaction Severity Status NKA Active Medications amiodarone 200 mg oral tablet 200 mg, 1, tablet, By Mouth, 2 times a day, Stop taking after 30 days, # 60 tablet, Refills 0, Tot.Refills 0, Maintenance, 09/24/19 11:14:00 EDT, Route to Pharmacy Electronically, [facility], 163, cm, 09/24/19 8:25:00 EDT, Height, 86.5,... Start Date: 09/24/19 Stop Date: 10/24/19 Status: Ordered aspirin 81 mg oral delayed release tablet = 81 mg, By Mouth, Daily in AM, # 30 tablet, 0 Refills, Maintenance, 09/24/19 11:12:00 EDT, EC Tablet, [facility], 163, cm, 09/24/19 8:25:00 EDT, Height, 86.5, kg, 09/16/19 17:32:00 EDT, Dry Weight Start Date: 09/24/19 Status: Ordered atorvastatin 80 mg oral tablet 1 tablet = 80 mg, By Mouth, Daily at bedtime, # 30 tablet, 0 Refills, Maintenance, 09/24/19 11:12:00 EDT, Tablet, [facility], 163, cm, 09/24/19 8:25:00 EDT, Height, 86.5, kg, 09/16/19 17:32:00 EDT, Dry Weight Start Date: 09/24/19 Status: Ordered insulin lispro 100 u/ml subcutaneous injection 2-14 units, Subcutaneous Injection, 3 times a day before meals, # 15 mL, 0 Refills, Maintenance, 09/24/19 11:15:00 EDT, Injection, [facility], Ok to switch to [...] 09/24/19 11:13:00 EDT, Route to Pharmacy Electronically, [facility] 3, 163, cm, 09/24/19 8:25:00 EDT, [...] 09/24/19 11:16:00 EDT, Route to Pharmacy Electronically, [facility], 163, cm, 09/24/19 8:25:00 EDT, Height, 86.5, kg, 09/16/19 17:32:00 EDT,... Start Date: 09/24/19 Status: Ordered Plavix 75 mg oral tablet 75 mg, 1, tablet, By Mouth, Daily, # 30 tablet, Refills 0, Tot. Refills 0, Maintenance, 09/24/19 11:15:00 EDT, Route to Pharmacy Electronically, [facility], 163, cm, 09/24/19 8:25:00 EDT, Height, 86.5, kg, 09/16/19 17:32:00 EDT, Dry Weight Start Date: 09/24/19 Status: Ordered torsemide 20 mg oral tablet 1 tablet = 20 mg, By Mouth, Daily before breakfast, # 30 tablet, 0 Refills, Maintenance, 09/24/19 11:16:00 EDT, Tablet, [facility], 163, cm, 09/24/19 8:25:00 [...] type 2)(Confirmed) Active Umbilical hernia(Confirmed) Active Results Radiology Reports * Exam Date Time Procedure Performing Provider Status 10/29/19 10:40 PM Chest 2 Views Frontal and Lat Madelin Ugalde; Auth (Verified) Notes: (Chest 2 Views Frontal and Lat) Reason For Exam: Fever;Cough RESULT: Chest 2 Views Frontal and Lat Chest 2 Views Frontal and Lat Refer to EMR; Reason: Cough; Fever; Clinical Question(s): Pneumonia; COMPARISON: 09/24/2019 FINDINGS: LINES AND TUBES: None. LUNGS AND PLEURA: Interstitial prominence. No definite consolidation or overt pulmonary edema. No pleural effusion. No pneumothorax. HEART, MEDIASTINUM AND NATALYA: Cardiac silhouette is normal in size. Status post median sternotomy. BONES AND SOFT TISSUES: No acute abnormality. IMPRESSION: No acute abnormality. WSN: [id number] Ordering Physician: Domingo Fields Dictated By: Sascha Elias MD Dictated Date/Time: 10/29/19 10:41 p Reviewed By: Sascha Elias MD Signed By: Sascha Elias MD Signed Date/Time: 10/29/19 10:41 pm Transcribed By: HELDER Transcribed Date/Time: 10/29/19 10:40 pm Vital Signs Most recent to oldest [Reference Range]: 1 2 3 Oxygen Saturation [94-100 %] 96 % (10/30/19 2:32 AM) 96 % (10/30/19 2:19 AM) 92 % *L* (10/30/19 12:46 AM) Pulse Rate [55-90 bpm] 74 bpm (10/30/19 2:32 AM) 75 bpm (10/30/19 2:19 AM) 77 bpm (10/30/19 12:46 AM) Blood Pressure [90-138/55-84 mm Hg] 136/60mm Hg (10/30/19 2:32 AM) 115/74mm Hg (10/30/19 2:19 AM) 109/57mm Hg (10/30/19 12:46 AM) Respiratory Rate [16-30 br/min] 18 br/min (10/30/19 2:32 AM) 20 br/min (10/30/19 2:19 AM) 21 br/min (10/30/19 12:46 AM) Temperature [96.8-100.4 DegF] 98.1 DegF (10/30/19 2:19 AM) 98.1 DegF (10/30/19 12:46 AM) 102.2 DegF *H* (10/29/19 8:47 PM) Mode of Delivery (Oxygen) Room air (10/30/19 2:32 AM) Room air (10/30/19 2:19 AM) Room air (10/30/19 12:46 AM) Blood pressure sites Arm, right (10/30/19 2:32 AM) Arm, right (10/30/19 2:19 AM) Arm, right (10/30/19 12:46 AM) Temperature Route Oral (10/30/19 2:19 AM) Oral (10/30/19 12:46 AM) Oral (10/29/19 8:47 PM) Social History Social History Type Response Smoking Status Former smoker entered on: 07/27/16 Sex
--- OUTSIDE RECORDS SUMMARY | 2023-08-09 08:01 | XMS_ITS | Continuity of Care Document ---
Author Organization [facility] Address [address] [place] [address]- Care Team Providers Care Instructional Technology Teacher Name Role Phone Po Ry ARIAS Primary Care Physician [place] [facility] [place](s): 11/21/21 - 12/21/[address] [address] Attending Physician: Admmary, Claire Admitting Physician: Admtr, Ar8 Referring Physician: Admtr, Ar8 Allergies, Adverse Reactions, Alerts No Known Allergies Medications aspirin 81 mg oral delayed release tablet = 81 mg, By Mouth, Daily in AM, # 30 tablet, 0 Refills, Maintenance, 09/24/19 11:12:00 EDT, EC Tablet, [facility], 163, cm, 09/24/19 8:25:00 EDT, Height, 86.5, kg, 09/16/19 17:32:00 EDT, Dry Weight Start Date: 09/24/19 Status: Ordered atorvastatin 80 mg oral tablet 1 tablet = 80 mg, By Mouth, Daily at bedtime, # 30 tablet, 0 Refills, Maintenance, 09/24/19 11:12:00 EDT, Tablet, [facility], 163, cm, 09/24/19 8:25:00 EDT, Height, 86.5, kg, 09/16/19 17:32:00 EDT, Dry Weight Start Date: 09/24/19 Status: Ordered insulin lispro 100 u/ml subcutaneous injection 2-14 units, Subcutaneous Injection, 3 times a day before meals, # 15 mL, 0 Refills, Maintenance, 09/24/19 11:15:00 EDT, Injection, [facility], Ok to switch to the [...] 09/24/19 11:13:00 EDT, Route to Pharmacy Electronically, [facility] 3, 163, cm, 09/24/19 8:25:00 EDT, Height, [...] 09/24/19 11:16:00 EDT, Route to Pharmacy Electronically, [facility] 3, 163, cm, 09/24/19 8:25:00 EDT, Height, 86.5, kg, 09/16/19 17:32:00 EDT,... Start Date: 09/24/19 Status: Ordered Plavix 75 mg oral tablet 75 mg, 1, tablet, By Mouth, Daily, # 30 tablet, Refills 0, Tot. Refills 0, Maintenance, 09/24/19 11:15:00 EDT, Route to Pharmacy Electronically, [facility] 3, 163, cm, 09/24/19 8:25:00 EDT, Height, 86.5, kg, 09/16/19 17:32:00 EDT, Dry Weight Start Date: 09/24/19 Status: Ordered torsemide 20 mg oral tablet 0.5 tablet = 10 mg, By Mouth, Daily before breakfast, # 30 tablet, 0 Refills, Maintenance, 09/23/2010:16:00 EDT, Tablet, [facility], 163, cm, 09/24/19 8:25:00 EDT, Height, 86.5, kg, 09/16/19 17:32:00 EDT, Dry Weight Start Date: 09/24/19 Status: Ordered Vitamin D3 By Mouth, 0 Refills, Maintenance, 09/26/13 11:16:43 Start Date: 09/26/13 Status: Ordered Problem List Condition Effective Dates Status Health Status Inform ant GERD (gastroesophageal reflu x disease)(Confirmed) Active HLD (hyperlipidemia)(Confirmed) Active HTN (hypertension)(Confirmed) Active Knee pain, bilateral(Confirmed) Active Obese class I(Confirmed) Active Obesity(Confirmed) Active Osteoarthritis(Confirmed) Active Neuropathic pain of left low er extremity(Confirmed) Active DM2 (diabetes mellitus, type 2)(Confirmed) Active Umbilical hernia(Confirmed) Active Social History Social History Type Response Smoking Status Former smoker, quit more than 30 days ago; Other: quit about 10 years ago; entered on: 11/21/21 Sex Care Team Personnel Name: Ry Soriano MD Address: [address] [place] [id number]
--- OUTSIDE RECORDS SUMMARY | 2023-08-09 08:01 | XMS_ITS | Continuity of Care Document ---
Author Organization [facility] [employer] [facility] Address [address] [place] [address]- Care Team Providers Care J2Ee Programmer Name Role Phone Ry Soriano MD Primary Care Physician En[place] [facility] [place] Date(s): 11/21/21 - 12/22/21 [facility] [employer] On[facility] [address] [place], [place] [address] Attending Physician: Jessica Franz MD Admitting Physician: Jessica Franz MD Referring Physician: Rama Peralta DO Allergies, Adverse Reactions, Alerts No Known Allergies Medications aspirin 81 mg oral delayed release tablet = 81 mg, By Mouth, Daily in AM, # 30 tablet, 0 Refills, Maintenance, 09/24/19 11:12:00 EDT, EC Tablet, [facility], 163, cm, 09/24/19 8:25:00 EDT, Height, 86.5, kg, 09/16/19 17:32:00 EDT, Dry Weight Start Date: 09/24/19 Status: Ordered atorvastatin 80 mg oral tablet 1 tablet = 80 mg, By Mouth, Daily at bedtime, # 30 tablet, 0 Refills, Maintenance, 09/24/19 11:12:00 EDT, Tablet, [facility], 163, cm, 09/24/19 8:25:00 EDT, Height, 86.5, kg, 09/16/19 17:32:00 EDT, Dry Weight Start Date: 09/24/19 Status: Ordered insulin lispro 100 u/ml subcutaneous injection 2-14 units, Subcutaneous Injection, 3 times a day before meals, # 15 mL, 0 Refills, Maintenance, 09/24/19 11:15:00 EDT, Injection, [facility], Ok to switch to the [...] 09/24/19 11:13:00 EDT, Route to Pharmacy Electronically, [facility] 3, 163, cm, 09/24/19 8:25:00 EDT, Height, [...] 09/24/19 11:16:00 EDT, Route to Pharmacy Electronically, [facility], 163, cm, 09/24/19 8:25:00 EDT, Height, 86.5, kg, 09/16/19 17:32:00 EDT,... Start Date: 09/24/19 Status: Ordered Plavix 75 mg oral tablet 75 mg, 1, tablet, By Mouth, Daily, # 30 tablet, Refills 0, Tot. Refills 0, Maintenance, 09/24/19 11:15:00 EDT, Route to Pharmacy Electronically, [facility] 3, 163, cm, 09/24/19 8:25:00 EDT, Height, 86.5, kg, 09/16/19 17:32:00 EDT, Dry Weight Start Date: 09/24/19 Status: Ordered torsemide 20 mg oral tablet 0.5 tablet = 10 mg, By Mouth, Daily before breakfast, # 30 tablet, 0 Refills, Maintenance, 09/23/2010:16:00 EDT, Tablet, [facility], 163, cm, 09/24/19 8:25:00 EDT, Height, 86.5, kg, 09/16/19 17:32:00 EDT, Dry Weight Start Date: 09/24/19 Status: Ordered Vitamin D3 = 1,250 mcg, [...] Team Personnel Name: Ry Soriano MD Address: [address] [place] [id number]
--- OUTSIDE RECORDS SUMMARY | 2023-08-09 08:01 | XMS_ITS | Continuity of Care Document ---
Author Organization [facility] Cardiac Zara el Address [address] [place] [address]- Care Team Providers Care Scaler Name Role Phone Po Ry ARIAS Primary Care Physician [phone] Encounter [facility] Date(s): 10/13/19 - 11/12/19 [facility] [address] [address]- [facility] Allergies, Adverse Reactions, Alerts Substance Reaction Severity Status NKA Active Medications aspirin 81 mg oral delayed release tablet = 81 mg, By Mouth, Daily in AM, # 30 tablet, 0 Refills, Maintenance, 09/24/19 11:12:00 EDT, EC Tablet, [facility], 163, cm, 09/24/19 8:25:00 EDT, Height, 86.5, kg, 09/16/19 17:32:00 EDT, Dry Weight Start Date: 09/24/19 Status: Ordered atorvastatin 80 mg oral tablet 1 tablet = 80 mg, By Mouth, Daily at bedtime, # 30 tablet, 0 Refills, Maintenance, 09/24/19 11:12:00 EDT, Tablet, [facility], 163, cm, 09/24/19 8:25:00 EDT, Height, 86.5, kg, 09/16/19 17:32:00 EDT, Dry Weight Start Date: 09/24/19 Status: Ordered insulin lispro 100 u/ml subcutaneous injection 2-14 units, Subcutaneous Injection, 3 times a day before meals, # 15 mL, 0 Refills, Maintenance, 09/24/19 11:15:00 EDT, Injection, [facility], Ok to switch to the [...] 09/24/19 11:13:00 EDT, Route to Pharmacy Electronically, [facility], 163, cm, 09/24/19 8:25:00 EDT, Height, 86.5, kg, 09/16/19 17:32:00 EDT, Dry Weight Start Date: 09/24/19 Status: Ordered metoprolol 25 mg oral tablet 25 mg, 1, tablet, By Mouth, 2 times a day, # 60 tablet, Refills 0, Tot. Refills 0, Maintenance, 09/24/19 11:16:00 EDT, Route to Pharmacy Electronically, [facility], 163, cm, 09/24/19 8:25:00 EDT, Height, 86.5, kg, 09/16/19 17:32:00 EDT,... Start Date: 09/24/19 Status: Ordered Plavix 75 mg oral tablet 75 mg, 1, tablet, By Mouth, Daily, # 30 tablet, Refills 0, Tot. Refills 0, Maintenance, 09/24/19 11:15:00 EDT, Route to Pharmacy Electronically, [facility], 163, cm, 09/24/19 8:25:00 EDT, Height, 86.5, kg, 09/16/19 17:32:00 EDT, Dry Weight Start Date: 09/24/19 Status: Ordered torsemide 20 mg oral tablet 0.5 tablet = 10 mg, By Mouth, Daily before breakfast, # 30 tablet, 0 Refills, Maintenance, 09/23/2010:16:00 EDT, Tablet, [facility], 163, cm, 09/24/19 8:25:00 EDT, [...]
--- OUTSIDE RECORDS SUMMARY | 2023-08-09 08:01 | XMS_ITS | Continuity of Care Document ---
Author Organization [facility] ter Address [address] [place] [address]- Care Team Providers Care Technical Communication Teacher Name Role Phone Ry Soriano MD Primary Care Physician Encounter [facility] [place] Date(s): 09/17/21 - 09/17/[address] [address]- Encounter Diagnosis Ovarian mass(Final) - 09/17/21 Discharge Disposition: A-D/C Home Attending Physician: Brett Olivas MD Admitting Physician: Brett Olivas MD Referring Physician: Not on Staff, Referring MD Allergies, Adverse Reactions, Alerts No Known Allergies Medications aspirin 81 mg oral delayed release tablet = 81 mg, By Mouth, Daily in AM, # 30 tablet, 0 Refills, Maintenance, 09/24/19 11:12:00 EDT, EC Tablet, [facility], 163, cm, 09/24/19 8:25:00 EDT, Height, 86.5, kg, 09/16/19 17:32:00 EDT, Dry Weight Start Date: 09/24/19 Status: Ordered atorvastatin 80 mg oral tablet 1 tablet = 80 mg, By Mouth, Daily at bedtime, # 30 tablet, 0 Refills, Maintenance, 09/24/19 11:12:00 EDT, Tablet, [facility], 163, cm, 09/24/19 8:25:00 EDT, Height, 86.5, kg, 09/16/19 17:32:00 EDT, Dry Weight Start Date: 09/24/19 Status: Ordered insulin lispro 100 u/ml subcutaneous injection 2-14 units, Subcutaneous Injection, 3 times a day before meals, # 15 mL, 0 Refills, Maintenance, 09/24/19 11:15:00 EDT, Injection, [facility] 3, Ok to switch to the pen [...] 09/24/19 11:13:00 EDT, Route to Pharmacy Electronically, [facility] 3, 163, cm, 09/24/19 8:25:00 EDT, Height, 86.5, kg, 09/16/19 17:32:00 EDT, Dry Weight Start Date: 09/24/19 Status: Ordered metoprolol 25 mg oral tablet 25 mg, 1, tablet, By Mouth, 2 times a day, # 60 tablet, Refills 0, Tot. Refills 0, Maintenance, 09/24/19 11:16:00 EDT, Route to Pharmacy Electronically, [facility] 3, 163, cm, 09/24/19 8:25:00 EDT, Height, 86.5, kg, 09/16/19 17:32:00 EDT,... Start Date: 09/24/19 Status: Ordered Plavix 75 mg oral tablet 75 mg, 1, tablet, By Mouth, Daily, # 30 tablet, Refills 0, Tot. Refills 0, Maintenance, 09/24/19 11:15:00 EDT, Route to Pharmacy Electronically, [facility] 3, 163, cm, 09/24/19 8:25:00 EDT, Height, 86.5, kg, 09/16/19 17:32:00 EDT, Dry Weight Start Date: 09/24/19 Status: Ordered torsemide 20 mg oral tablet 0.5 tablet = 10 mg, By Mouth, Daily before breakfast, # 30 tablet, 0 Refills, Maintenance, 09/23/2010:16:00 EDT, Tablet, [facility], 163, cm, 09/24/19 8:25:00 [...] mellitus, type 2)(Confirmed) Active Umbilical hernia(Confirmed) Active Vital Signs Most recent to oldest [Reference Range]: 1 2 3 Height 163 cm (09/17/21 9:15 AM) Weight 92.7 kg (09/17/21 9:15 AM) Oxygen Saturation [94-100 %] 96 % (09/17/21 12:02 PM) 95 % (09/17/21 9:15 AM) 98 % (09/17/21 8:57 AM) Pulse Rate [55-90 bpm] 69 bpm (09/17/21 12:02 PM) 86 bpm (09/17/21 9:15 AM) 104 bpm *H* (09/17/21 8:57 AM) Body Mass Index [18.5-24.99] 34.89 *>HHI* (09/17/21 9:15 AM) Blood Pressure [90-138/55-84 mm Hg] 182/87mm Hg *H* (09/17/21 12:02 PM) 178/96mm Hg *H* (09/17/21 9:15 AM) Respiratory Rate [16-30 br/min] 18 br/min (09/17/21 12:02 PM) 18 br/min (09/17/21 9:15 AM) Temperature [96.8-100.4 DegF] 97.5 DegF (09/17/21 9:15 AM) Mode of Delivery (Oxygen) Room air (09/17/21 12:02 PM) Room air (09/17/21 9:15 AM) Room air (09/17/21 8:57 AM) Blood pressure sites Arm, right (09/17/21 12:02 PM) Arm, right (09/17/21 9:15 AM) Temperature Route Oral (09/17/21 9:15 AM) Weight Obtained Via Patient/family state d (09/17/21 9:15 AM) Social History Social History Type Response Smoking Status Former smoker entered on: 07/27/16 Sex
--- OUTSIDE RECORDS SUMMARY | 2023-08-09 08:01 | XMS_ITS | Continuity of Care Document ---
Author Organization [facility] ter Address [address] [place] [address]- Care Team Providers Care Assistant Professor Of Radiology Name Role Phone Po Ry ARIAS Primary Care Physician [place] [facility] [place] Date(s): 09/22/19 - 10/22/[address] [address]- [facility] Attending Physician: Not on Staff, Attending MD Admitting Physician: Not on Staff, Admitting MD Referring Physician: Not on Staff, Referring MD Allergies, Adverse Reactions, Alerts Substance Reaction Severity Status NKA Active Medications amiodarone 200 mg oral tablet 200 mg, 1, tablet, By Mouth, 2 times a day, Stop taking after 30 days, # 60 tablet, Refills 0, Tot.Refills 0, Maintenance, 09/24/19 11:14:00 EDT, Route to Pharmacy Electronically, [facility], 163, cm, 09/24/19 8:25:00 EDT, Height, 86.5,... Start Date: 09/24/19 Stop Date: 10/24/19 Status: Ordered aspirin 81 mg oral delayed release tablet = 81 mg, By Mouth, Daily in AM, # 30 tablet, 0 Refills, Maintenance, 09/24/19 11:12:00 EDT, EC Tablet, [facility], 163, cm, 09/24/19 8:25:00 EDT, Height, 86.5, kg, 09/16/19 17:32:00 EDT, Dry Weight Start Date: 09/24/19 Status: Ordered atorvastatin 80 mg oral tablet 1 tablet = 80 mg, By Mouth, Daily at bedtime, # 30 tablet, 0 Refills, Maintenance, 09/24/19 11:12:00 EDT, Tablet, [facility] 3, 163, cm, 09/24/19 8:25:00 EDT, Height, 86.5, kg, 09/16/19 17:32:00 EDT, Dry Weight Start Date: 09/24/19 Status: Ordered insulin lispro 100 u/ml subcutaneous injection 2-14 units, Subcutaneous Injection, 3 times a day before meals, # 15 mL, 0 Refills, Maintenance, 09/24/19 11:15:00 EDT, Injection, [facility], Ok to switch to [...] 09/24/19 11:13:00 EDT, Route to Pharmacy Electronically, [facility] 3, 163, cm, 09/24/19 8:25:00 EDT, [...] 09/24/19 11:16:00 EDT, Route to Pharmacy Electronically, [facility] 3, 163, cm, 09/24/19 8:25:00 EDT, Height, 86.5, kg, 09/16/19 17:32:00 EDT,... Start Date: 09/24/19 Status: Ordered Plavix 75 mg oral tablet 75 mg, 1, tablet, By Mouth, Daily, # 30 tablet, Refills 0, Tot. Refills 0, Maintenance, 09/24/19 11:15:00 EDT, Route to Pharmacy Electronically, [facility], 163, cm, 09/24/19 8:25:00 EDT, Height, 86.5, kg, 09/16/19 17:32:00 EDT, Dry Weight Start Date: 09/24/19 Status: Ordered torsemide 20 mg oral tablet 1 tablet = 20 mg, By Mouth, Daily before breakfast, # 30 tablet, 0 Refills, Maintenance, 09/24/19 11:16:00 EDT, Tablet, [facility], 163, cm, 09/24/19 8:25:00 [...]
--- OUTSIDE RECORDS SUMMARY | 2023-08-09 08:01 | XMS_ITS | Continuity of Care Document ---
Author Organization [facility] WORKDAY DIRECTOR Oncolog y Address [address] [place] [address]- Care Team Providers Care Bag Bundler Name Role Phone Po Ry ARIAS Primary Care Physician Encounter [facility] [place] Date(s): 11/21/21 - 12/21/21 [facility] WORKDAY DIRECTOR Oncology [address], [place] [address] Allergies, Adverse Reactions, Alerts No Known Allergies [...] 0 Refills, Maintenance, 09/24/19 11:12:00 EDT, Tablet, [facility] [...] 09/24/19 11:13:00 EDT, Route to Pharmacy Electronically, [facility] 3, 163, cm, 09/24/19 8:25:00 EDT, [...] 09/24/19 11:16:00 EDT, Route to Pharmacy Electronically, [facility] 3, 163, cm, 09/24/19 8:25:00 EDT, Height, 86.5, kg, 09/16/19 17:32:00 EDT,... Start Date: 09/24/19 Status: Ordered Plavix 75 mg oral tablet 75 mg, 1, tablet, By Mouth, Daily, # 30 tablet, Refills 0, Tot. Refills 0, Maintenance, 09/24/19 11:15:00 EDT, Route to Pharmacy Electronically, [facility] 3, 163, cm, 09/24/19 8:25:00 EDT, Height, 86.5, kg, 09/16/19 17:32:00 EDT, Dry Weight Start Date: 09/24/19 Status: Ordered torsemide 20 mg oral tablet 0.5 tablet = 10 mg, By Mouth, Daily before breakfast, # 30 tablet, 0 Refills, Maintenance, 09/23/2010:16:00 EDT, Tablet, [facility] [...] Team Personnel Name: Ry Soriano MD Address: [address] [place] [id number]
--- OUTSIDE RECORDS SUMMARY | 2023-08-09 08:01 | XMS_ITS | Continuity of Care Document ---
Author Organization [facility] Address [address] [facility], [address] [place] [address]- Care Team Providers Care Head Filter Press Tender Name Role Phone Po Ry ARIAS Primary Care Physician [facility] [id number] Date(s): 12/23/21 - 01/22/22 [facility] [address] [facility], [address]th Floor [place], [place] [address] Attending Physician: Claire Escamilla Admitting Physician: AdmtrClaire [...] 0 Refills, Maintenance, 09/24/19 11:15:00 EDT, Injection, [facility], Ok to switch to the [...] 09/24/19 11:13:00 EDT, Route to Pharmacy Electronically, [facility] 3, 163, cm, 09/24/19 8:25:00 [...] 09/24/19 11:16:00 EDT, Route to Pharmacy Electronically, [facility] 3, 163, cm, 09/24/19 8:25:00 [...] Personnel Name: Ry Soriano MD Address: Address: [address] [place] [id number]
--- OUTSIDE RECORDS SUMMARY | 2023-08-09 08:01 | XMS_ITS | Continuity of Care Document ---
Author Organization [facility] SERVER SECURITY ADMINISTRATOR Oncolog y Address [address] [place] [address]- Care Team Providers Care Supervisor Farm Equipment Maintenance Name Role Phone Ry Soriano MD Primary Care Physician [place] [facility] [place]s): [place]19[place]21 - 02/08/22 [facility] SERVER SECURITY ADMINISTRATOR Oncology [address] [place], [place] [address] Attending Physician: Jarrett Romero MD Admitting Physician: Jarrett Romero MD Referring Physician: Ry Soriano MD Allergies, Adverse Reactions, Alerts No Known Allergies Medications aspirin 81 mg oral delayed release tablet = 81 mg, By Mouth, Daily in AM, # 30 tablet, 0 Refills, Maintenance, 09/24/19 11:12:00 EDT, EC Tablet, [facility], 163, cm, 09/24/19 8:25:00 EDT, Height, 86.5, kg, 09/16/19 17:32:00 EDT, Dry Weight Start Date: 09/24/19 Status: Ordered atorvastatin 80 mg oral tablet 1 tablet = 80 mg, By Mouth, Daily at bedtime, # 30 tablet, 0 Refills, Maintenance, 09/24/19 11:12:00 EDT, Tablet, [facility], 163, cm, 09/24/19 8:25:00 [...] 0 Refills, Maintenance, 09/24/19 11:15:00 EDT, Injection, [facility], Ok to switch to the pen [...] 09/24/19 11:13:00 EDT, Route to Pharmacy Electronically, [facility], 163, cm, 09/24/19 8:25:00 EDT, Height, [...] tablet, 0 Refills, Maintenance, 09/23/2010:16:00 EDT, Tablet, [facility], 163, cm, 09/24/19 8:25:00 [...] on: 11/21/21 Sex Patient Care team information Care Team Personnel Name: Paty Galloway RN Position: [facility] Nurse Member Role: Primary Care Nurse Name: Jennifer Miramontes RN Position: [facility] RN Member Role: Primary Care Nurse Name: Esme Burns RN Position: [facility] RN Member Role: Primary Care Nurse Name: Leatha Quevedo RN Position: [facility] [place] Member Role: Primary Care Nurse Name: Anisha Lane NP Position: [facility] Associate Professional Member Role: Primary Care Nurse Address: Address: [address] [place] [address] [place] [address]- Name: Tala Barroso RN Position: [facility] RN Member Role: Primary Care Nurse Name: Abi Mojica RN Position: [facility] RN Member Role: Primary Care Nurse Name: Ry Soriano MD Position: Reference Physician Member Role: PCP Address: Address: [address] [place] [address]- Name: Deborah Mosquera RN Position: [facility] Onco RN Member Role: Primary Care Nurse Care Team Related Persons Name: MELIZA MORTENSEN Address: home [address] [place] [address]
--- OUTSIDE RECORDS SUMMARY | 2023-08-09 08:01 | XMS_ITS | Continuity of Care Document ---
Author Organization [facility] Address [address] [place] [address]- Care Team Providers Care Rn Palliative Name Role Phone Ry Soriano MD Primary Care Physician [place] [facility] [place] 12/26/[place] - 12/27/[address] [address] Discharge Disposition: A-D/C Home Attending Physician: Jarrett Romero MD Admitting Physician: Jarrett Romero MD Referring Physician: Jarrett Romero MD Allergies, Adverse Reactions, Alerts No Known Allergies Medications aspirin 81 mg oral delayed release tablet = 81 mg, By Mouth, Daily in AM, # 30 tablet, 0 Refills, Maintenance, 09/24/19 11:12:00 EDT, EC Tablet, [facility], 163, cm, 09/24/19 8:25:00 EDT, Height, 86.5, kg, 09/16/19 17:32:00 EDT, Dry Weight Start Date: 09/24/19 Status: Ordered atorvastatin 80 mg oral tablet 1 tablet = 80 mg, By Mouth, Daily at bedtime, # 30 tablet, 0 Refills, Maintenance, 09/24/19 11:12:00 EDT, Tablet, [facility], 163, cm, 09/24/19 8:25:00 EDT, [...] 0 Refills, Maintenance, 09/24/19 11:15:00 EDT, Injection, [facility], Ok to switch to the [...] lisinopril 20 mg oral tablet 20 mg, Tablet, By Mouth, 12/27/21 9:00:00 EDT Start Date: 12/27/21 Stop Date: 12/27/21 Status: Completed lisinopril 20 mg oral tablet 20 mg, 1, tablet, By Mouth, Daily, # 30 tablet, Refills 0, Tot. Refills 0, Maintenance, 09/24/19 11:13:00 EDT, Route to Pharmacy Electronically, [facility], 163, cm, 09/24/19 8:25:00 EDT, Height, 86.5, kg, 09/16/19 17:32:00 EDT, Dry Weight Start Date: 09/24/19 Status: Ordered metFORMIN 500 mg oral tablet 1 tablet = 500 mg, By Mouth, 2 times a day, TAKE ONE TABLET BY MOUTH TWICE A DAY Start Date: 11/02/21 Status: Ordered metoprolol 25 mg oral tablet 25 mg, Tablet, By Mouth, 12/27/21 9:00:00 EDT Start Date: 12/27/21 Stop Date: 12/27/21 Status: Completed metoprolol 25 mg oral tablet 25 mg, 1, tablet, By Mouth, 2 times a day, # 60 tablet, Refills 0, Tot. Refills 0, Maintenance, 09/24/19 11:16:00 EDT, Route to Pharmacy Electronically, [facility], 163, cm, 09/24/19 8:25:00 EDT, [...] tablet, 0 Refills, Maintenance, 09/23/2010:16:00 EDT, Tablet, [facility], 163, cm, 09/24/19 8:25:00 EDT, [...] drug., 163,... Start Date: 12/26/21 Status: Ordered Tylenol 325 mg oral tablet 650 mg, Tablet, By Mouth, 12/27/21 9:00:00 EDT Start Date: 12/27/21 Stop Date: 12/27/21 Status: Completed Vitamin D3 = 1,250 mcg, By Mouth, Daily, 0 Refills, Maintenance, 09/26/13 11:16:43 EDT Start Date: 09/26/13 Status: Ordered Problem List Condition Effective Dates Status Health Status Inform ant GERD (gastroesophageal reflu x disease)(Confirmed) Active HLD (hyperlipidemia)(Confirmed) Active HTN (hypertension)(Confirmed) Active Knee pain, bilateral(Confirmed) Active Obese class II(Confirmed) Active Obesity(Confirmed) Active Osteoarthritis(Confirmed) Active Neuropathic pain of left low er extremity(Confirmed) Active DM2 (diabetes mellitus, type 2)(Confirmed) Active Umbilical hernia(Confirmed) Active Procedures Procedure Date Related Diagnosis Body Site Status Robotic-assisted total lapar oscopic hysterectomy and bilateral salpingo-oophorectomy 12/26/21 Completed Vital Signs Most recent to oldest [Reference Range]: 1 2 3 Height 163 cm (12/27/21 8:24 AM) 163 cm (12/27/21 5:05 AM) 163 cm (12/27/21 12:35 AM) Weight 97.1 kg (12/26/21 8:54 PM) 91 kg (12/22/21 2:58 PM) Oxygen Saturation [94-100 %] 97 % (12/27/21 8:24 AM) 97 % (12/27/21 5:05 AM) 96 % (12/27/21 12:35 AM) Pulse Rate [55-90 bpm] 60 bpm (12/27/21 8:27 AM) 60 bpm (12/27/21 8:24 AM) 63 bpm (12/27/21 5:05 AM) Body Mass Index [18.5-24.99 kg/m2] 36.55 kg/m2 *>HHI* (12/26/21 8:54 PM) 34.25 kg/m2 *>HHI* (12/22/21 2:58 PM) Blood Pressure [90-138/55-84 mm Hg] 147/71mm Hg *H* (12/27/21 8:28 AM) 147/71mm Hg *H* (12/27/21 8:27 AM) 147/71mm Hg *H* (12/27/21 8:24 AM) Respiratory Rate [16-30 br/min] 18 br/min (12/27/21 9:28 AM) 19 br/min (12/27/21 8:24 AM) 17 br/min (12/27/21 5:05 AM) Temperature [96.8-100.4 DegF] 97.6 DegF (12/27/21 8:24 AM) 98.0 DegF (12/27/21 5:05 AM) 97.9 DegF (12/27/21 12:35 AM) Liters per Minute 3 L/min (12/27/21 12:35 AM) 3 L/min (12/26/21 8:54 PM) 2 L/min (12/26/21 8:15 PM) Mode of Delivery (Oxygen) Room air (12/27/21 8:24 AM) Room air (12/27/21 5:05 AM) Nasal cannula (12/27/21 12:35 AM) Blood pressure sites Arm, right (12/27/21 5:05 AM) Arm, right (12/27/21 12:35 AM) Arm, left (12/26/21 8:54 PM) Temperature Route Oral (12/27/21 8:24 AM) Oral (12/27/21 5:05 AM) Oral (12/27/21 12:35 AM) Dry Weight 89.9 kg (12/26/21 1:36 PM) 91 kg (12/22/21 2:58 PM) Weight Obtained Via Bed scale (12/26/21 8:54 PM) Patient/family stated (12/22/21 2:58 PM) Dry Weight Obtained Via Standing scale (12/26/21 1:36 PM) Patient/family stated (12/22/21 2:58 PM) Social History Social History Type Response Smoking Status Former smoker, quit more than 30 days ago; Other: quit about 10 years ago; entered on: 11/21/21 Sex Care Team Personnel Name: Ry Soriano MD Address: [address] [place] [id number]-
--- OUTSIDE RECORDS SUMMARY | 2023-08-09 08:01 | XMS_ITS | Continuity of Care Document ---
Author Organization [facility] Address [address] [place] [address]- Care Team Providers Care Electrical Estimator Name Role Phone Po Ry ARIAS Primary Care Physician Encounter [facility] [place] Date(s): 11/02/21 - 11/03/[address] [address]- Encounter Diagnosis Precordial pain(Final) - 11/02/21 Discharge Disposition: A-D/C Home Attending Physician: Crow Szymanski MD Admitting Physician: Gokul Gilliam MD Referring Physician: Not on Staff, Referring MD Allergies, Adverse Reactions, Alerts No Known Allergies Medications aspirin 81 mg oral delayed release tablet = 81 mg, By Mouth, Daily in AM, # 30 tablet, 0 Refills, Maintenance, 09/24/19 11:12:00 EDT, EC Tablet, [facility], 163, cm, 09/24/19 8:25:00 EDT, Height, 86.5, kg, 09/16/19 17:32:00 EDT, Dry Weight Start Date: 09/24/19 Status: Ordered atorvastatin 80 mg oral tablet 1 tablet = 80 mg, By Mouth, Daily at bedtime, # 30 tablet, 0 Refills, Maintenance, 09/24/19 11:12:00 EDT, Tablet, [facility], 163, cm, 09/24/19 8:25:00 EDT, Height, 86.5, kg, 09/16/19 17:32:00 EDT, Dry Weight Start Date: 09/24/19 Status: Ordered insulin lispro 100 u/ml subcutaneous injection 2-14 units, Subcutaneous Injection, 3 times a day before meals, # 15 mL, 0 Refills, Maintenance, 09/24/19 11:15:00 EDT, Injection, [facility], Ok to switch to [...] Status: Ordered lisinopril 20 mg oral tablet 40 mg, Tablet, By Mouth, [place], 11/03/21 9:51:00 EDT Start Date: 11/03/21 Stop Date: 11/03/21 Status: Completed lisinopril 20 mg oral tablet 20 mg, 1, tablet, By Mouth, Daily, # 30 tablet, Refills 0, Tot. Refills 0, Maintenance, 09/24/19 11:13:00 EDT, Route to Pharmacy Electronically, [facility] 3, 163, cm, 09/24/19 8:25:00 EDT, Height, 86.5, kg, 09/16/19 17:32:00 EDT, Dry Weight Start Date: 09/24/19 Status: Ordered metFORMIN 500 mg oral tablet 1 tablet = 500 mg, By Mouth, 2 times a day, TAKE ONE TABLET BY MOUTH TWICE A DAY Start Date: 11/02/21 Status: Ordered metoprolol 25 mg oral tablet 25 mg, Tablet, By Mouth, Hold for: sbp<100, HR<60, 11/03/21 9:00:00 EDT Start Date: 11/03/21 Stop Date: 11/03/21 Status: Completed metoprolol 25 mg oral tablet 25 mg, 1, tablet, By Mouth, 2 times a day, # 60 tablet, Refills 0, Tot. Refills 0, Maintenance, 09/24/19 11:16:00 EDT, Route to Pharmacy Electronically, [facility] 3, 163, cm, 09/24/19 8:25:00 EDT, Height, 86.5, kg, 09/16/19 17:32:00 EDT,... Start Date: 09/24/19 Status: Ordered Plavix 75 mg oral tablet 75 mg, 1, tablet, By Mouth, Daily, # 30 tablet, Refills 0, Tot. Refills 0, Maintenance, 09/24/19 11:15:00 EDT, Route to Pharmacy Electronically, [facility], 163, cm, 09/24/19 8:25:00 EDT, Height, 86.5, kg, 09/16/19 17:32:00 EDT, Dry Weight Start Date: 09/24/19 Status: Ordered torsemide 20 mg oral tablet 0.5 tablet = 10 mg, By Mouth, Daily before breakfast, # 30 tablet, 0 Refills, Maintenance, 09/23/2010:16:00 EDT, Tablet, [facility], 163, cm, 09/24/19 [...] Exam Date Time Procedure Performing Provider Status 11/02/21 4:52 PM Shoulder Min 2 Views Left Randy De La Vega ; Auth (Verified) Notes: (Shoulder Min 2 Views Left) Reason For Exam: with Pain;Trauma RESULT: Shoulder Min 2 Views Left Shoulder Min 2 Views Left, 3 views Hx of Present Illness: pt co L arm and cp for 2 days; Reason: Trauma; with Pain; Clinical Question(s): Fracture COMPARISON: None. FINDINGS: No fracture or dislocation. No arthritic change of the glenohumeral joint. Normal AC joint and portions of the clavicle included on the exam. No calcification of the rotator cuff. Prior median sternotomy. IMPRESSION: Unremarkable appearance of the left shoulder. WSN: [id number] Ordering Physician: Micheal Storm Dictated By: Van Akhtar MD Dictated Date/Time: 11/02/21 4:57 pm Reviewed By: Van Akhtar MD Signed By: Van Akhtar MD Signed Date/Time: 11/02/21 4:57 pm Transcribed By: HELDER Transcribed Date/Time: 11/02/21 4:56 pm * Exam Date Time Procedure Performing Provider Status 11/02/21 4:52 PM Chest 2 Views Frontal and Lat Randy De La Vega; [place] (Verified) Notes: (Chest 2 Views Frontal and Lat) Reason For Exam: Shortness of Breath RESULT: Chest 2 Views Frontal and Lat Chest 2 Views Frontal and Lat HX OF PRESENT ILLNESS: pt co L arm and cp for 2 days; Reason: Shortness of Breath; Clinical Question(s): CHF / CHF COMPARISON: 10/31/2019 FINDINGS: LINES AND TUBES: None. LUNGS AND PLEURA: Clear lungs. Normal pulmonary vascularity. No pleural effusion. No pneumothorax. HEART, MEDIASTINUM AND NATALYA: Heart is normal in size. Normal mediastinal and hilar contour. BONES AND SOFT TISSUES: No acute abnormality. Status-post median sternotomy. IMPRESSION: No evidence of acute abnormality. WSN: [id number] Ordering Physician: Micheal Storm Dictated By: Van Akhtar MD Dictated Date/Time: 11/02/21 4:56 pm Reviewed By: Van Akhtar MD Signed By: Van Akhtar MD Signed Date/Time: 11/02/21 4:56 pm Transcribed By: HELDER Transcribed Date/Time: 11/02/21 4:56 pm Vital Signs Most recent to oldest [Reference Range]: 1 2 3 Height 160 cm (11/03/21 11:45 AM) 160 cm (11/03/21 4:11 AM) 160 cm (11/02/21 11:40 PM) Weight 91 kg (11/02/21 9:00 PM) Oxygen Saturation [94-100 %] 96 % (11/03/21 7:00 AM) 96 % (11/03/21 4:11 AM) 95 % (11/02/21 11:40 PM) Pulse Rate [55-90 bpm] 68 bpm (11/03/21 7:23 AM) 56 bpm (11/03/21 4:11 AM) 67 bpm (11/03/21 12:18 AM) Body Mass Index [18.5-24.99] 35.55 *>HHI* (11/02/21 9:00 PM) Blood Pressure [90-138/55-84 mm Hg] 150/97mm Hg *H* (11/03/21 11:45 AM) 188/83mm Hg *H* (11/03/21 11:04 AM) 150/97mm Hg *H* (11/03/21 11:00 AM) Respiratory Rate [16-30 br/min] 18 br/min (11/03/21 4:11 AM) 18 br/min (11/02/21 11:40 PM) 17 br/min (11/02/21 10:26 PM) Temperature [96.8-100.4 DegF] 98.5 DegF (11/03/21 7:00 AM) 97.5 DegF (11/03/21 4:11 AM) 97.7 DegF (11/02/21 11:40 PM) Liters per Minute 2 L/min (11/02/21 2:07 PM) Mode of Delivery (Oxygen) Room air (11/03/21 7:00 AM) Room air (11/03/21 4:11 AM) Room air (11/02/21 11:40 PM) Blood pressure sites Arm, left (11/03/21 11:45 AM) Arm, right (11/03/21 7:00 AM) Arm, right (11/03/21 4:11 AM) Temperature Route Oral (11/03/21 4:11 AM) Oral (11/02/21 11:40 PM) Oral (11/02/21 8:34 PM) Dry Weight 91 kg (11/02/21 9:00 PM) Weight Obtained Via Patient/family state d (11/02/21 9:00 PM) Dry Weight Obtained Via Patient/family s tated (11/02/21 9:00 PM) Social History Social History Type Response Smoking Status Former smoker entered on: 07/27/16 Sex
--- OUTSIDE RECORDS SUMMARY | 2023-08-09 08:01 | XMS_ITS | Continuity of Care Document ---
Author Organization [facility] Address [address] [place] [address]- Care Team Providers Care Sanitation Tank Washer Name Role Phone Po Ry ARIAS Primary Care Physician [phone] Encounter [facility] Date(s): 12/24/19 - 01/23/20 [facility] [address] [place] [address] [facility] Attending Physician: Claire Escamilla Admitting Physician: AdmtrClaire Referring Physician: Admtr, Ar8 Allergies, Adverse Reactions, Alerts Substance Reaction Severity Status NKA Active Medications aspirin 81 mg oral delayed release tablet = 81 mg, By Mouth, Daily in AM, # 30 tablet, 0 Refills, Maintenance, 09/24/19 11:12:00 EDT, EC Tablet, [facility], 163, cm, 09/24/19 8:25:00 EDT, Height, 86.5, kg, 09/16/19 17:32:00 EDT, Dry Weight Start Date: 09/24/19 Status: Ordered atorvastatin 80 mg oral tablet 1 tablet = 80 mg, By Mouth, Daily at bedtime, # 30 tablet, 0 Refills, Maintenance, 09/24/19 11:12:00 EDT, Tablet, [facility], 163, cm, 09/24/19 8:25:00 EDT, Height, 86.5, kg, 09/16/19 17:32:00 EDT, Dry Weight Start Date: 09/24/19 Status: Ordered insulin lispro 100 u/ml subcutaneous injection 2-14 units, Subcutaneous Injection, 3 times a day before meals, # 15 mL, 0 Refills, Maintenance, 09/24/19 11:15:00 EDT, Injection, [facility], Ok to switch to [...] 09/24/19 11:13:00 EDT, Route to Pharmacy Electronically, [facility], 163, cm, 09/24/19 8:25:00 EDT, Height, 86.5, kg, 09/16/19 17:32:00 EDT, Dry Weight Start Date: 09/24/19 Status: Ordered metoprolol 25 mg oral tablet 25 mg, 1, tablet, By Mouth, 2 times a day, # 60 tablet, Refills 0, Tot. Refills 0, Maintenance, 09/24/19 11:16:00 EDT, Route to Pharmacy Electronically, [facility], 163, cm, 09/24/19 8:25:00 EDT, Height, 86.5, kg, 09/16/19 17:32:00 EDT,... Start Date: 09/24/19 Status: Ordered Plavix 75 mg oral tablet 75 mg, 1, tablet, By Mouth, Daily, # 30 tablet, Refills 0, Tot. Refills 0, Maintenance, 09/24/19 11:15:00 EDT, Route to Pharmacy Electronically, [facility], 163, cm, 09/24/19 8:25:00 EDT, Height, 86.5, kg, 09/16/19 17:32:00 EDT, Dry Weight Start Date: 09/24/19 Status: Ordered torsemide 20 mg oral tablet 0.5 tablet = 10 mg, By Mouth, Daily before breakfast, # 30 tablet, 0 Refills, Maintenance, 09/23/2010:16:00 EDT, Tablet, [facility], 163, cm, 09/24/19 8:25:00 [...]
--- OUTSIDE RECORDS SUMMARY | 2023-08-09 08:01 | XMS_ITS | Continuity of Care Document ---
Author Organization [facility] Address [address] [address]- Care Team Providers Care Strategy Consultant Name Role Phone Po Ry ARIAS Primary Care Physician [phone] Encounter [facility] ACCT R [id number] Date(s): 10/02/19 - 10/09/19 [facility] [address] [address]- [facility] Attending Physician: Cooper Valadez MDh Referring Physician: Leonardo ARIAS [facility] Allergies, Adverse Reactions, Alerts Substance Reaction Severity Status NKA Active Medications amiodarone 200 mg oral tablet 200 mg, 1, tablet, By Mouth, 2 times a day, Stop taking after 30 days, # 60 tablet, Refills 0, Tot.Refills 0, Maintenance, 09/24/19 11:14:00 EDT, Route to Pharmacy Electronically, [facility], 163, cm, 09/24/19 8:25:00 EDT, Height, 86.5,... Start Date: 09/24/19 Stop Date: 10/24/19 Status: Ordered aspirin 81 mg oral delayed release tablet = 81 mg, By Mouth, Daily in AM, # 30 tablet, 0 Refills, Maintenance, 09/24/19 11:12:00 EDT, EC Tablet, [facility], 163, cm, 09/24/19 8:25:00 EDT, Height, 86.5, kg, 09/16/19 17:32:00 EDT, Dry Weight Start Date: 09/24/19 Status: Ordered atorvastatin 80 mg oral tablet 1 tablet = 80 mg, By Mouth, Daily at bedtime, # 30 tablet, 0 Refills, Maintenance, 09/24/19 11:12:00 EDT, Tablet, [facility], 163, cm, 09/24/19 8:25:00 EDT, Height, 86.5, kg, 09/16/19 17:32:00 EDT, Dry Weight Start Date: 09/24/19 Status: Ordered insulin lispro 100 u/ml subcutaneous injection 2-14 units, Subcutaneous Injection, 3 times a day before meals, # 15 mL, 0 Refills, Maintenance, 09/24/19 11:15:00 EDT, Injection, [facility], Ok to switch to [...] 09/24/19 11:13:00 EDT, Route to Pharmacy Electronically, [facility] 3, 163, cm, 09/24/19 8:25:00 [...] 09/24/19 11:16:00 EDT, Route to Pharmacy Electronically, [facility] 3, 163, cm, 09/24/19 8:25:00 EDT, Height, 86.5, kg, 09/16/19 17:32:00 EDT,... Start Date: 09/24/19 Status: Ordered Plavix 75 mg oral tablet 75 mg, 1, tablet, By Mouth, Daily, # 30 tablet, Refills 0, Tot. Refills 0, Maintenance, 09/24/19 11:15:00 EDT, Route to Pharmacy Electronically, [facility], 163, cm, 09/24/19 8:25:00 EDT, Height, 86.5, kg, 09/16/19 17:32:00 EDT, Dry Weight Start Date: 09/24/19 Status: Ordered torsemide 20 mg oral tablet 1 tablet = 20 mg, By Mouth, Daily before breakfast, # 30 tablet, 0 Refills, Maintenance, 09/24/19 11:16:00 EDT, Tablet, [facility], 163, cm, 09/24/19 8:25:00 [...]
--- OUTSIDE RECORDS SUMMARY | 2023-08-09 08:01 | XMS_ITS | Continuity of Care Document ---
Author Organization [facility] [employer] [facility] Address [address] [place] [address], [address] [place] [address]- Care Team Providers Care C Developer Name Role Phone Ry Soriano MD Primary Care Physician [phone] [id number] Date[facility]s): [facility]/19[facility]21 - 01/20/22 [facility] Ohais [facility] [address] [facility], 4th Floor [place], [place] [address] Attending Physician: Enma Moore MD Admitting Physician: Enma Moore MD Referring Physician: Ry Soriano MD Allergies, Adverse Reactions, Alerts No Known Allergies Medications aspirin 81 mg oral delayed release tablet = 81 mg, By Mouth, Daily in AM, # 30 tablet, 0 Refills, Maintenance, 09/24/19 11:12:00 EDT, EC Tablet, [facility], 163, cm, 09/24/19 8:25:00 EDT, Height, 86.5, kg, 09/16/19 17:32:00 EDT, Dry Weight Start Date: 09/24/19 Status: Ordered atorvastatin 80 mg oral tablet 1 tablet = 80 mg, By Mouth, Daily at bedtime, # 30 tablet, 0 Refills, Maintenance, 09/24/19 11:12:00 EDT, Tablet, [facility], 163, cm, 09/24/19 8:25:00 [...] 0 Refills, Maintenance, 09/24/19 11:15:00 EDT, Injection, [facility], Ok to switch to [...] 09/24/19 11:13:00 EDT, Route to Pharmacy Electronically, [facility], 163, cm, 09/24/19 8:25:00 [...] 09/24/19 11:16:00 EDT, Route to Pharmacy Electronically, [facility], 163, cm, 09/24/19 8:25:00 EDT, Height, [...] tablet, 0 Refills, Maintenance, 09/23/2010:16:00 EDT, Tablet, [facility], 163, cm, 09/24/19 8:25:00 [...] Personnel Name: Ry Soriano MD Address: Address: [address] [place] [id number]
--- OUTSIDE RECORDS SUMMARY | 2023-08-09 08:01 | XMS_ITS | Continuity of Care Document ---
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 Refills 0, Acute 09/30/2010:13:00 EDT, 09/24/19 11:13:00 EDT, Route to Pharmacy Electronically, [facility], 163, cm, 09/24/19 8:25:00 EDT, Height, 86.5, kg, 09/15... Start Date: 09/24/19 Stop Date: 10/01/19 Status: Ordered amiodarone 200 mg oral tablet 200 mg, 1, tablet, By Mouth, 2 times a day, Stop taking after 30 days, # 60 tablet, Refills 0, Tot.Refills 0, Maintenance, 09/24/19 11:14:00 EDT, Route to Pharmacy Electronically, [facility], 163, cm, 09/24/19 8:25:00 EDT, Height, 86.5,... Start Date: 09/24/19 Stop Date: 10/24/19 Status: Ordered aspirin 81 mg oral delayed release tablet = 81 mg, By Mouth, Daily in AM, # 30 tablet, 0 Refills, Maintenance, 09/24/19 11:12:00 EDT, EC Tablet, [facility] 3, 163, cm, 09/24/19 8:25:00 EDT, Height, 86.5, kg, 09/16/19 17:32:00 EDT, Dry Weight Start Date: 09/24/19 Status: Ordered atorvastatin 80 mg oral tablet 1 tablet = 80 mg, By Mouth, Daily at bedtime, # 30 tablet, 0 Refills, Maintenance, 09/24/19 11:12:00 EDT, Tablet, [facility] 3, 163, cm, 09/24/19 8:25:00 EDT, Height, 86.5, kg, 09/16/19 17:32:00 EDT, Dry Weight Start Date: 09/24/19 Status: Ordered insulin lispro 100 u/ml subcutaneous injection 2-14 units, Subcutaneous Injection, 3 times a day before meals, # 15 mL, 0 Refills, Maintenance, 09/24/19 11:15:00 EDT, Injection, [facility], Ok to switch to the pen [...] 09/24/19 11:13:00 EDT, Route to Pharmacy Electronically, [facility] 3, 163, cm, 09/24/19 8:25:00 EDT, [...] 09/24/19 11:16:00 EDT, Route to Pharmacy Electronically, [facility], 163, cm, 09/24/19 8:25:00 EDT, Height, 86.5, kg, 09/16/19 17:32:00 EDT,... Start Date: 09/24/19 Status: Ordered Plavix 75 mg oral tablet 75 mg, 1, tablet, By Mouth, Daily, # 30 tablet, Refills 0, Tot. Refills 0, Maintenance, 09/24/19 11:15:00 EDT, Route to Pharmacy Electronically, [facility], 163, cm, 09/24/19 8:25:00 EDT, Height, 86.5, kg, 09/16/19 17:32:00 EDT, Dry Weight Start Date: 09/24/19 Status: Ordered torsemide 20 mg oral tablet 1 tablet = 20 mg, By Mouth, Daily before breakfast, # 30 tablet, 0 Refills, Maintenance, 09/24/19 11:16:00 EDT, Tablet, [facility], 163, cm, 09/24/19 8:25:00 [...] Exam Date Time Procedure Performing Provider Status 09/24/19 9:43 AM Chest Portable Jayleen Bahena; Auth (Verified) Notes: (Chest Portable) Reason For Exam: S/P Cardiac Surgery RESULT: Chest Portable Chest Portable Reason: S P Cardiac Surgery; Clinical Question(s): Pneumothorax COMPARISON: 09/23/2019 FINDINGS: LINES AND TUBES: None. LUNGS AND PLEURA: Groundglass in the lower lung zones may be due to mild atelectasis IMPRESSION: Groundglass in the lower lung zones may be secondary to mild atelectasis WSN: [id number] Ordering Physician: Edinson Carrero Dictated By: Harjit Rivera MD Dictated Date/Time: 09/24/19 10:09 a Reviewed By: Harjit Rivera MD Signed By: Harjit Rivera MD Signed Date/Time: 09/24/19 10:09 am Transcribed By: HELDER Transcribed Date/Time: 09/24/19 10:08 am * Exam Date Time Procedure Performing Provider Status 09/23/19 2:35 PM Chest Portable Maureen Soares; Auth (Verified) Notes: (Chest Portable) Reason For Exam: tube removal;Other: RESULT: Chest Portable Chest Portable 1:49 PM. INDICATION: Follow-up after tube removal. COMPARISON: Multiple priors most recent 09/23/2019, CTA 01/26/2014. FINDINGS: LINES AND TUBES: None. LUNGS AND PLEURA: Crowding of the pulmonary markings likely related to low lung volumes. Unchanged mild hazy airspaceopacities of the lung bases likely atelectasis. No pleural effusion. No pneumothorax. HEART, MEDIASTINUM AND NATALYA: Heart is at the upper limits of normal for size. Evidence of CABG. Evidence of CABG. Normal mediastinal and hilar contour. BONES AND SOFT TISSUES: No acute abnormality. Unchanged median sternotomy wires. Possible bilateral rotator cuff calcific tendinopathy. IMPRESSION: Status post left chest tube removal. No pneumothorax. I have personally reviewed the images and I agree with this report. WSN: [id number] Ordering Physician: Maureen Cao Dictated By: Montse Zamora MD Dictated Date/Time: 09/23/19 2:47 pm Reviewed By: Van Akhtar MD Signed By: Van Akhtar MD Signed Date/Time: 09/23/19 2:52 pm Transcribed By: HELDER Transcribed Date/Time: 09/23/19 2:41 pm * Exam Date Time Procedure Performing Provider Status 09/22/19 6:00 PM Chest Portable Jany Burns; Auth (Verified) Notes: (Chest Portable) Reason For Exam: tube removal;Other: RESULT: Chest Portable AP portable chest, INDICATION: Reason: Other:; tube removal; Clinical Question(s): Pneumothorax; Hx of Present Illness: 74 y o female presented for elective cath due to rest CP, found to have MVD recommended CABG COMPARISON: 09/20/2019 FINDINGS: LINES AND TUBES: There is a left side chest tube. LUNGS AND PLEURA AND MEDIASTINUM: There is no pneumothorax. No significant pleural effusion. There is left retrocardiac atelectasis/infiltrate. There is right lung base with hazy opacity, increasing from prior. Cartilage is enlarged. IMPRESSION: Increasing right lung base hazy opacity, suggesting atelectasis/edema or developing pneumonia. Persistent left base atelectasis/infiltrate. WSN: [id number] Ordering Physician: Maureen Cao Dictated By: Marline Sewell MD Dictated Date/Time: 09/22/19 6:13 pm Reviewed By: Marline Sewell MD Signed By: Marline Sewell MD Signed Date/Time: 09/22/19 6:13 pm Transcribed By: HELDER Transcribed Date/Time: 09/22/19 6:10 pm * Exam Date Time Procedure Performing Provider Status 09/20/19 10:56 AM Chest Portable Madelin Lubin; Auth (Verified) Notes: (Chest Portable) Reason For Exam: S/P Cardiac Surgery RESULT: Chest Portable Chest Portable AP upright Reason: S P Cardiac Surgery; Clinical Question(s): Pneumothorax; Hx of Present Illness: 74 y o female presented for elective cath due to rest CP, found to have MVD recommended CABG COMPARISON: 09/19/2019 and 09/18/2019. FINDINGS: LINES AND TUBES: Again seen are bilateral chest tubes. LUNGS AND PLEURA: There is pulmonary vascular congestion. Persistent bibasilar lung opacities. No pleural effusion. No pneumothorax. HEART, MEDIASTINUM AND NATALYA: The cardiomediastinal silhouette remains enlarged. BONES AND SOFT TISSUES: No acute abnormality. IMPRESSION: Persistent enlarged cardiomediastinal silhouette with pulmonary vascular congestion and bibasilar lung opacities. WSN: [id number] Ordering Physician: Edinson Carrero Dictated By: Marisol Croft MD Dictated Date/Time: 09/20/19 4:42 pm Reviewed By: Marisol Croft MD Signed By: Marisol Croft MD Signed Date/Time: 09/20/19 4:42 pm Transcribed By: HELDER Transcribed Date/Time: 09/20/19 4:41 pm * Exam Date Time Procedure Performing Provider Status 09/19/19 5:23 AM Chest Portable Darrell Fang; Auth ( Verified) Notes: (Chest Portable) Reason For Exam: pleural chest tubes with airleak;S/P Cardiac Surgery RESULT: Chest Portable Chest Portable INDICATION: Status post cardiac surgery. Chest tube with airleak; COMPARISON: 09/18/2019. FINDINGS: Right IJ [place]Mercedes catheter, bilateral thoracostomy and mediastinal drains remain in place without evidence of pneumothorax. Overall aeration appears somewhat improved. There is residual basilar atelectasis left side greater than right. IMPRESSION: Improving vascular congestion and aeration. WSN: [id number] Ordering Physician: Lester Granger Dictated By: Julian Mckinney MD Dictated Date/Time: 09/19/19 9:16 am Reviewed By: Julian Mckinney MD Signed By: Julian Mckinney MD Signed Date/Time: 09/19/19 9:16 am Transcribed By: HELDER Transcribed Date/Time: 09/19/19 9:14 am * Exam Date Time Procedure Performing Provider Status 09/18/19 6:15 AM Chest Portable Darrell Fang; Auth ( Verified) Notes: (Chest Portable) Reason For Exam: S/P Cardiac Surgery RESULT: Chest Portable Chest Portable AP semiupright at 5:20 AM REASON: S P Cardiac Surgery; Clinical Question(s): Postop; Hx of Present Illness: heart burn x1 month / Postop COMPARISON: 09/17/2019 FINDINGS: LINES AND TUBES: Endotracheal tube and enteric tube removed. Unchanged position of the right internal jugular [place] catheter, mediastinal drain, and bilateral chest tubes. Multiple wires project over the patient. LUNGS AND PLEURA: The central pulmonary vasculature is prominent and indistinct. Small bilateral pleural effusions with underlying airspace opacity. No pneumothorax. HEART, MEDIASTINUM AND NATALYA: Unchanged. BONES AND SOFT TISSUES: Status post median sternotomy. IMPRESSION: 1. Support structures as above. 2. Interstitial pulmonary edema with small bilateral pleural effusions and bibasilar atelectasis. WSN: [id number] Ordering Physician: Darrell Shaw Dictated By: Van Akhtar MD Dictated Date/Time: 09/18/19 8:43 am Reviewed By: Van Akhtar MD Signed By: Van Akhtar MD Signed Date/Time: 09/18/19 8:43 am Transcribed By: HELDER Transcribed Date/Time: 09/18/19 8:42 am * Exam Date Time Procedure Performing Provider Status 09/17/19 7:26 PM Chest Portable Nagi Leroy; Auth ( Verified) Notes: (Chest Portable) Reason For Exam: S/P Cardiac Surgery RESULT: Chest Portable Chest Portable Reason: S P Cardiac Surgery; Clinical Question(s): Other:; Cardiac Tamponade; Special Instructions:On Admission to [facility]; Hx of Present Illness: heart burn x1 month COMPARISON: 09/16/2019. FINDINGS: LINES AND TUBES: Endotracheal tube is located 4.1 cm from bi. Enterogastric tube distal tip in stomach. Right internal jugular approach [place]cedes catheter terminating in the main pulmonary outflow. Apically directed bilateral chest tubes are present. Parasternal mediastinal drains are present. LUNGS AND PLEURA: Low lung volumes with mild basilar atelectasis. Lungs are otherwise clear with no consolidation. No pleural effusion. No pneumothorax. HEART, MEDIASTINUM AND NAATLYA: Status post median sternotomy. Heart is normal in size. Normal mediastinal and hilar contour. BONES AND SOFT TISSUES: No acute abnormality. IMPRESSION: Status post median sternotomy. Adequate positioning of supporting lines and tubes. No acute abnormality. WSN: [id number] Ordering Physician: Darrell Shaw Dictated By: Van Owen MD Dictated Date/Time: 09/17/19 7:31 pm Reviewed By: Van Owen MD Signed By: Van Owen MD Signed Date/Time: 09/17/19 7:31 pm Transcribed By: HELDER Transcribed Date/Time: 09/17/19 7:27 pm * Exam Date Time Procedure Performing Provider Status 09/16/19 6:06 PM Chest Portable Gabriela Schulte; Auth (V erified) Notes: (Chest Portable) Reason For Exam: Preop RESULT: Chest Portable Chest Portable Reason: Preop; Clinical Question(s): Preop; Hx of Present Illness: heart burn x1 month COMPARISON: 01/24/2014. FINDINGS: LINES AND TUBES: None. LUNGS AND PLEURA: Previously seen pulmonary edema and interstitial prominence is significantly improved. There is also improved visualization of both lung bases with resolution of bibasilar opacities . No pleural effusion. No pneumothorax. HEART, MEDIASTINUM AND NATALYA: Heart is at the upper limits of normal for size. Normal mediastinal and hilar contour. BONES AND SOFT TISSUES: No acute abnormality. IMPRESSION: Resolution of pulmonary edema seen on previous exam. No acute cardiopulmonary pathology. WSN: [id number] Ordering Physician: Denny Mendez Dictated By: Van Owen MD Dictated Date/Time: 09/16/19 6:14 pm Reviewed By: Van Owen MD Signed By: Van Owen MD Signed Date/Time: 09/16/19 6:14 pm Transcribed By: HELDER Transcribed Date/Time: 09/16/19 6:13 pm Vital Signs Most recent to oldest [Reference Range]: 1 2 3 Height 163 cm (09/24/19 11:24 AM) 163 cm (09/24/19 8:25 AM) 163 cm (09/24/19 4:44 AM) Weight 87 kg (09/24/19 4:44 AM) 90.4 kg (09/23/19 3:35 AM) 89.5 kg (09/22/19 4:24 AM) Oxygen Saturation [94-100 %] 92 % *L* (09/24/19 11:24 AM) 93 % *L* (09/24/19 8:25 AM) 97 % (09/24/19 4:44 AM) Pulse Rate [55-90 bpm] 80 bpm (09/24/19 11:24 AM) 87 bpm (09/24/19 8:25 AM) 87 bpm (09/24/19 4:44 AM) Body Mass Index [18.5-24.99] 33.69 *>HHI* (09/22/19 4:24 AM) 32.33 *>HHI* (09/17/19 2:49 AM) 32.56 *>HHI* (09/16/19 5:28 PM) Blood Pressure [90-138/55-84 mm Hg] 135/55mm Hg (09/24/19 11:24 AM) 151/62mm Hg *H* (09/24/19 8:25 AM) 144/61mm Hg *H* (09/24/19 4:44 AM) Respiratory Rate [16-30 br/min] 18 br/min (09/24/19 11:24 AM) 18 br/min (09/24/19 8:25 AM) 18 br/min (09/24/19 4:44 AM) Temperature [96.8-100.4 DegF] 97.8 DegF (09/24/19 11:24 AM) 98.3 DegF (09/24/19 8:25 AM) 98.1 DegF (09/24/19 4:44 AM) Liters per Minute 1 L/min (09/24/19 8:25 AM) 1 L/min (09/23/19 7:52 AM) 2 L/min (09/23/19 3:35 AM) Mode of Delivery (Oxygen) Room air (09/24/19 11:24 AM) Nasal cannula (09/24/19 8:25 AM) Nasal cannula (09/24/19 4:44 AM) Blood pressure sites Arm, right (09/24/19 11:24 AM) Arm, right (09/24/19 8:25 AM) Arm, right (09/24/19 4:44 AM) Temperature Route Oral (09/24/19 11:24 AM) Oral (09/24/19 8:25 AM) Oral (09/24/19 4:44 AM) Dry Weight 86.5 kg (09/16/19 5:28 PM) 86.5 kg (09/16/19 1:01 PM) 86.3 kg (09/16/19 7:31 AM) Weight Obtained Via Bed scale (09/24/19 4:44 AM) Bed scale (09/23/19 3:35 AM) Bed scale (09/22/19 4:24 AM) Dry Weight Obtained Via Standing scale (09/16/19 1:01 PM) Mobility assistance Partial assistance (09/19/19 5:00 AM) Social History Social History Type Response Smoking Status Former smoker entered on: 07/27/16 Sex
--- OUTSIDE RECORDS SUMMARY | 2023-08-09 08:01 | XMS_ITS | Continuity of Care Document ---
Author Organization [facility] [place] [facility] Address [address] [place] [address], [address] [place] [address]- Care Team Providers Care Registry Nurse Name Role Phone Po Ry ARIAS Primary Care Physician [phone] [id number] Date(s): 09/18/21 - 10/18/21 [facility] [employer]il[employer]arshiv Rodríg[employer] [facility] [address] [facility], [address] [place] [address]- Allergies, Adverse Reactions, Alerts No Known Allergies Medications aspirin 81 mg oral delayed release tablet = 81 mg, By Mouth, Daily in AM, # 30 tablet, 0 Refills, Maintenance, 09/24/19 11:12:00 EDT, EC Tablet, [facility], 163, cm, 09/24/19 8:25:00 EDT, Height, 86.5, kg, 09/16/19 17:32:00 EDT, Dry Weight Start Date: 09/24/19 Status: Ordered atorvastatin 80 mg oral tablet 1 tablet = 80 mg, By Mouth, Daily at bedtime, # 30 tablet, 0 Refills, Maintenance, 09/24/19 11:12:00 EDT, Tablet, [facility], 163, cm, 09/24/19 8:25:00 EDT, Height, 86.5, kg, 09/16/19 17:32:00 EDT, Dry Weight Start Date: 09/24/19 Status: Ordered insulin lispro 100 u/ml subcutaneous injection 2-14 units, Subcutaneous Injection, 3 times a day before meals, # 15 mL, 0 Refills, Maintenance, 09/24/19 11:15:00 EDT, Injection, [facility], Ok to switch to [...] 09/24/19 11:13:00 EDT, Route to Pharmacy Electronically, [facility], 163, cm, 09/24/19 8:25:00 EDT, Height, 86.5, kg, 09/16/19 17:32:00 EDT, Dry Weight Start Date: 09/24/19 Status: Ordered metoprolol 25 mg oral tablet 25 mg, 1, tablet, By Mouth, 2 times a day, # 60 tablet, Refills 0, Tot. Refills 0, Maintenance, 09/24/19 11:16:00 EDT, Route to Pharmacy Electronically, [facility], 163, cm, 09/24/19 8:25:00 EDT, Height, 86.5, kg, 09/16/19 17:32:00 EDT,... Start Date: 09/24/19 Status: Ordered Plavix 75 mg oral tablet 75 mg, 1, tablet, By Mouth, Daily, # 30 tablet, Refills 0, Tot. Refills 0, Maintenance, 09/24/19 11:15:00 EDT, Route to Pharmacy Electronically, [facility], 163, cm, 09/24/19 8:25:00 EDT, Height, 86.5, kg, 09/16/19 17:32:00 EDT, Dry Weight Start Date: 09/24/19 Status: Ordered torsemide 20 mg oral tablet 0.5 tablet = 10 mg, By Mouth, Daily before breakfast, # 30 tablet, 0 Refills, Maintenance, 09/23/2010:16:00 EDT, Tablet, [facility], 163, cm, 09/24/19 8:25:00 [...]
--- OUTSIDE RECORDS SUMMARY | 2023-08-09 08:01 | XMS_ITS | Continuity of Care Document ---
Author Organization [facility] Address [address] [place] [address]- Care Team Providers Care Compliance Reviewer Name Role Phone Po Ry ARIAS Primary Care Physician [phone] Encounter [facility] Date(s): 12/29/21 - 01/28/22 [facility] [address] [place] [id number] Allergies, Adverse Reactions, Alerts No Known Allergies Medications aspirin 81 mg oral delayed release tablet = 81 mg, By Mouth, Daily in AM, # 30 tablet, 0 Refills, Maintenance, 09/24/19 11:12:00 EDT, EC Tablet, [facility], 163, cm, 09/24/19 8:25:00 EDT, Height, 86.5, kg, 09/16/19 17:32:00 EDT, Dry Weight Start Date: 09/24/19 Status: Ordered atorvastatin 80 mg oral tablet 1 tablet = 80 mg, By Mouth, Daily at bedtime, # 30 tablet, 0 Refills, Maintenance, 09/24/19 11:12:00 EDT, Tablet, [facility], 163, cm, 09/24/19 [...] 0 Refills, Maintenance, 09/24/19 11:15:00 EDT, Injection, [facility] 3, Ok to switch to the pen [...] 09/24/19 11:13:00 EDT, Route to Pharmacy Electronically, [facility], 163, cm, 09/24/19 8:25:00 EDT, Height, [...] 09/24/19 11:16:00 EDT, Route to Pharmacy Electronically, [facility] 3, 163, cm, 09/24/19 8:25:00 EDT, Height, [...] tablet, 0 Refills, Maintenance, 09/23/2010:16:00 EDT, Tablet, [facility], 163, cm, 09/24/19 [...] Personnel Name: Ry Soriano MD Address: Address: [address] [place] [id number]
[2023-08-09 09:12] VITALS: BMI 35.4
[2023-08-09 09:18] VITALS: BP 170/80; PULSE 77; RESP 16; TEMP 36.3; O2SAT 92
[2023-08-09] MEDS: Lactated Ringers 1,000 ML 100 ML IVCONT (09:44)
--- NOTE | 2023-08-09 10:54 | MHC.SHP ---
Pre-Procedural Eval Section A - 24 Hr Update-Section A only Date of Service: 08/09/23 Section B - Complete if H&P > 30 days Chief Complaint: Personal hx of polyps Details of Present Illness: COVID-19 virus infection Obesity (BMI 30-39.9) Diabetic nephropathy Essential hypertension Lab test positive for detection of COVID-19 virus Toxic multinodular goiter Tubular adenoma of colon Coronary artery disease Hypercholesterolemia Type 2 diabetes mellitus with hyperglycemia Surgical History Hx of colonoscopy Status post coronary artery bypass graft History of coronary artery bypass graft x 3 (~09/17/19) History of cardiac catheterization (~09/16/19) History of total left knee replacement H/O umbilical hernia repair S/P lumpectomy, left breast Allergies: Allergies Allergy/AdvReac Type Severity Reaction Status Date / Time No Known Allergies Allergy Verified 07/31/23 09:40 [No Known Allergies*] Review of Systems Review of Systems Comment: Ten point ROS negative Exam Exam Comment: Gen appear: No acute distress HEENT: no icterus Chest: No overt resp distress Abd: soft, nontender, nondistended Psych: Stable affect, answering questions appropriately Neuro: A/Ox3 noted to move all extremities spontaneously Ext: no peripheral edema Plan Diagnosis/Plan: Unchanged I have reviewed the history and physical and performed a pertinent physical examination on my patient. No changes have occurred unless specified. Time Spent With Patient Time: Total time managing care of this patient today ____ minutes.
--- NOTE | 2023-08-09 11:14 | P.OPN-COLO_ITS ---
Colonoscopy Operative Note Operative Note Date of Service: 08/09/23 Narrative: Procedure: Colonoscopy Indication: History of polyp Endoscopist: Deena Jackson MD Anesthesia Provider: Dr. Damion Godwin Anesthesia type: MAC Instrument: Olympus [id number]-[id number] Consent: Indication, risks vs benefits, and alternatives were discussed with the patient who gave written informed consent to proceed. EKG, pulse, pulse oximetry and blood pressure were monitored throughout the procedure. Please see anesthesia flowsheet. Procedure: The patient was brought to the procedure room and placed in the left lateral decubitus position. IV medications were administered by the anesthesia provider in attendance. A digital rectal exam was performed which was abnormal due to finding of hemorrhoids. A distal attachment cap was affixed to the tip of the colonoscope which was then inserted through the anus and advanced through the colon to the cecum at 70 cm,and terminal ileum. Appendiceal orifice and ileocecal valve were identified. Mucosa was carefully examined under high definition white light as the instrument was slowly withdrawn in a retrograde panoramic fashion. Retroflexion was performed in rectum. The procedure was not difficult. There were no immediate obvious complications. The quality of the prep was BBPS: 2+2+3 = adequate Withdrawal time 7 minutes. Limitations: No limitations. Findings: Mucosa: Normal to cecum and terminal ileum. Protruding lesions: * 1 sessile polyp of size 3 mm in transverse colon. Cold snare polypectomy was performed. The polyp was completely removed and retrieved. * Medium internal hemorrhoids without stigmata of recent bleeding. Impression: 1. Normal colon and terminal ileum mucosa 2. Total of 1 polyp removed 3. External and internal hemorrhoids Recommendations: - Follow path results. - Repeat colonoscopy in future is optional contingent on overall health status
[2023-08-09 11:20] VITALS: BP 143/71; PULSE 77; RESP 20; TEMP 36.7; O2SAT 94
[2023-08-09 11:35] VITALS: BP 144/67; PULSE 74; RESP 18; TEMP 36.7; O2SAT 95
== END 2023-08-09 12:03 | disposition home or self-care (01) ==
PROVIDERS: PCP Internal Medicine; Visit Provider Internal Medicine
PROC: 0DJD8ZZ Inspection of Lower Intestinal Tract, Via Natural or Artificial Opening Endoscopic (ICD-10-PCS; CPT 45378; principal; 2023-08-09 10:00)
DX: Z12.11 Encounter for screening for malignant neoplasm of colon (principal); D12.3 Benign neoplasm of transverse colon; K64.8 Other hemorrhoids; K64.4 Residual hemorrhoidal skin tags; Z86.010 Personal history of colon polyps; E11.9 Type 2 diabetes mellitus without complications; I10 Essential (primary) hypertension; I25.10 Atherosclerotic heart disease of native coronary artery without angina pectoris; Z79.82 Long term (current) use of aspirin; Z95.1 Presence of aortocoronary bypass graft
CPT/HCPCS: 45380; 88305; J2704; J3010

== ENCOUNTER → 2023-08-09 07:57 | Outpatient (BNV) | payer OTHER, SELFPAY | PROVIDERS: PCP Internal Medicine; Visit Provider Internal Medicine | DX: Z12.11 Encounter for screening for malignant neoplasm of colon (principal); Z86.010 Personal history of colon polyps; D12.3 Benign neoplasm of transverse colon; K64.8 Other hemorrhoids | CPT/HCPCS: 45385 ==

== ENCOUNTER 2023-08-21 13:02 | Outpatient (AMB) | payer OTHER, SELFPAY ==
[2023-08-21 13:06] VITALS: BP 122/68; PULSE 74; BMI 34.4
--- NOTE | 2023-08-21 13:06 | MHC.OFFVIS ---
Vital Signs 08/21/23 13:06 Height 5 ft 4 in Weight 200 lb 9.93 oz BMI 34.4 BP 122/68 Blood Pressure Location Lt brachial Position Sitting Pulse 74 Pulse Source Pulse Oximeter Intake Visit Reasons: ER D/C fluid around heart? Allergies No Known Allergies [No Known Allergies*] Allergy (Verified 07/31/23 09:40) Medication List - Last Reconciled 08/21/23 by Esme Ramirez NP amlodipine 5 mg PO DAILY aspirin 81 mg PO DAILY atorvastatin 80 mg PO DAILY blood sugar diagnostic (FreeStyle Lite Strips) As directed check the BS TID blood-glucose meter ([place] Crystalsuch Ultra2 Meter) As directed cholecalciferol (vitamin D3) 25 mcg PO DAILY flash glucose sensor (FreeStyle Kisha 2 Sensor kit) three times a day insulin aspart U-100 (Novolog FlexPen U-100 Insulin aspart) 8 - 36 units subcut TID insulin glargine 27 units subcut DAILY lisinopril 30 mg PO DAILY 90 days meloxicam 7.5 mg PO DAILY metformin 500 mg PO BID metoprolol succinate ER 25 mg PO BID 90 days pen needle, diabetic (1st Tier Unifine Pentips) As directed injection 4 times a day [PULL UPS Extra Large As directed] torsemide 20 mg PO DAILY HPI Comments Details: 78-year-old female presents today for a follow-up after Emergency Room care. She was seen at [facility] on 08/20/2023 regarding shoulder pain that she has been having and she reported shortness of breath. Chest x-ray revealed fluid overload and pulmonary edema. She states she likes to keep busy at home but if she over exerts herself she will feel short of breath. But she reports her breathing is overall the same and denies chest pains or swelling, FORMERLY [facility] Medical History Pulmonary edema COVID-19 virus infection Obesity (BMI 30-39.9) Diabetic nephropathy Essential hypertension Lab test positive for detection of COVID-19 virus Toxic multinodular goiter Tubular adenoma of colon Coronary artery disease Hypercholesterolemia Type 2 diabetes mellitus with hyperglycemia Surgical History Hx of colonoscopy Status post coronary artery bypass graft History of coronary artery bypass graft x 3 (~09/17/19) History of cardiac catheterization (~09/16/19) History of total left knee replacement H/O umbilical hernia repair S/P lumpectomy, left breast Family History Father No problems noted. Mother No problems noted. Social History Housing: Apartment Alcohol intake: current Alcohol intake frequency: holidays/special occasions only Patient Tobacco Use Status: Former Tobacco user Tobacco use type: Cigarette Years Smoked: 1999 quit e-Cigarette/Vaping Use: Never Used Second Hand Smoke Exposure: No Advance Directives Date on File: 01/08/20 service: No Current occupational status: retired Cognitive needs: Yes (cane ) Hearing needs: No Vision needs: Yes (glasses) Review of Systems Const Denies weakness ENT Denies dizziness Card Denies chest pain, Denies chest pain with activity, Denies syncope, Denies rapid heart rate, Denies pedal edema, Denies edema, Denies leg edema, Denies lightheadedness, Denies palpitations, Denies dyspnea, Denies dyspnea on exertion and Denies orthopnea Resp Denies cough, Denies dyspnea and Denies dyspnea on exertion GI Denies hematochezia and Denies change in stool character Musc Denies abnormal gait, Denies muscle cramps, Denies muscle weakness, Denies numbness, Denies radiating pain into limb and Denies tingling Neuro Denies abnormal gait, Denies dizziness, Denies syncope, Denies numbness, Denies tingling and Denies weakness Endo Denies palpitations Physical Exam Vital Signs: Last Vital Signs Pulse 74 08/21/23 13:06 BP 122/68 08/21/23 13:06 BMI result Body Mass Index 34.4 Assessment & Plan Assessment & Plan (1) Pulmonary edema: Code(s): J81.1 - Chronic pulmonary edema Category: Medical Plan: Chest x-ray reviewed and showed volume fluid overload/mild pulmonary edema pattern. Will send for echo and lab work. reviewed heart healthy diet. Orders: Orders B Type Natriuretic Peptide 08/21/23 J81.1 - Chronic pulmonary edema CA echo transthoracic complete 08/21/23 J81.1 - Chronic pulmonary edema Basic Metabolic Panel 08/21/23 J81.1 - Chronic pulmonary edema Coding Level of Care Code Est Pt Level 3 (71301) Diagnoses Pulmonary edema J81.1
== END 2023-08-21 13:33 | disposition home or self-care (01) ==
PROVIDERS: PCP Internal Medicine; Visit Provider Nurse Practitioner
DX: J81.1 Chronic pulmonary edema (principal)
CPT/HCPCS: 99213

== ENCOUNTER → 2023-08-21 13:02 | Outpatient (BNVA) | payer OTHER, SELFPAY | PROVIDERS: PCP Internal Medicine; Visit Provider Nurse Practitioner | DX: J81.1 Chronic pulmonary edema (principal) | CPT/HCPCS: 99212 ==

== ENCOUNTER → 2023-09-11 08:53 | Outpatient (REF) | payer OTHER, SELFPAY ==
--- NOTE | 2023-09-11 09:08 | CA_ITS ---
Transthoracic Echocardiogram Patient (Last, First, Middle): Lauren Crowley B Gender: Female Date of : 1945 Age: 78 Procedure Date: 09/11/2023 Procedure Type: Transthoracic Echocardiogram Location: OP Height: 162.56 cm Weight: 91.63 kg BSA: 1.96 m2 Heart Rate: bpm BP: 130 / 68 mmHg Corrugator Helper: TO Referring MD: Esme Ramirez TUMBLER TENDER Symptoms: J81.1 - Chronic pulmonary edema Study Quality: Adequate w contrast ECG Rhythm: Sinus Conclusions: - The left ventricular systolic function is normal. The visually estimated ejection fraction is between 60-65%. - The basal inferior segment is akinetic. - No obvious valvular pathology seen on this study. Findings Procedure Information Contrast agent, definity, is being given per protocol without apparent complications. Left Ventricle Normal left ventricular cavity size. The left ventricular systolic function is normal. The visually estimated ejection fraction is between 60-65%. There is paradoxical septal motion consistent with post-operative status. Diastolic function is normal for age. There is mild septal asymmetric hypertrophy. Wall Motion Rest Echo Findings The basal inferior segment is akinetic. Right Ventricle Normal right ventricular cavity size. There is mildly decreased right ventricular systolic function. Atria Both atria are normal in size. Aortic Valve There is a normal trileaflet aortic valve. There is no aortic valve stenosis. There is no aortic valve regurgitation. Mitral Valve The mitral valve appears normal. There is no mitral valve regurgitation. There is no mitral valve stenosis. Pulmonic Valve The pulmonic valve is likely normal. Tricuspid Valve Normal tricuspid valve structure. There is trace tricuspid valve regurgitation. There is no evidence of pulmonary hypertension. Great Vessels The asc aorta is normal in size. Venous The inferior vena cava is normal in size and collapses greater than 50% with inspiration. Pericardium/Pleural There is no evidence of pericardial effusion. Prior Study Comparison No significant change compared to prior study dated: 08/09/2020. (wall motion looks similar on images). Recommendations, Care & Conclusions No obvious valvular pathology seen on this study. Measurements 2D Linear Measurements IVSd: 1.19 0.6-0.9/0.6-1.0 cm LVIDd: 3.84 3.9-5.3/4.2-5.9 cm LVIDd Index: 1.96 2.4-3.2/2.2-3.1 cm/m2 LVIDs: 2.36 2.0-3.6 cm LVPWd: 0.94 0.7-1.1 cm LA Diam: 3.90 2.7-3.8/3.0-4.0 cm LAIDs Index: 1.99 1.5-2.3 cm/m2 LV Mass: 162.29 67-162/88-224 g LV Mass Index: 82.80 43-95/49-115 g/m2 LVOT Diam: 2.10 3.0+(-)1.3 cm 2D Systolic Function EF 4C: 50.50 >55% EF 2C: 53.30 >55% EF BiP: 51.50 >55% Mitral Valve MV Pk E: 0.67 MV PK A: 0.57 MV Decel Time: 205.00 E/A: 1.20 E'Lateral: 9.46 E'Medial: 4.03 E/E' Med: 16.60 E/E' Lat: 7.10 PHT: 69.00 MVA PHT: 3.19 Decel Roane: 2.71 Aortic Valve AoV Pk Jai: 1.23 AoV Mn Jai: 0.86 AoV VTI: 0.22 AoV Pk Grad: 6.00 Aov Mn Grad: 3.00 AGUEDA Cont.VTI: 3.20 LVOT LVOT Pk Jai: 0.97 LVOT Mn Jai: 0.71 LVOT VTI: 0.21 LVOT Pk Grad: 4.00 LVOT Mn Grad: 2.00 LVOT Diam: 2.10 LVOT Area: 3.46 Diastolic Function MV Pk E: 0.67 MV Pk A: 0.57 E/A: 1.20 E'Medial: 4.03 E/E' Med: 16.60 E' Laterial: 9.46 E/E' Lat: 7.10 Right Ventricle TAPSE (mm): 10.20 TVS' Jai: 7.94 Tricuspid Valve TR Pk Jai: 2.51 TR Pk Grad: 25.00 RA Press: 3.00 RVSP: 28.00 Great Vessels Aorta Sinus of Valsalva: 3.15 2.0-3.5 cm Ao Asc: 3.20 2.1-3.4 cm Updated in Other Vendor System with Status of Final Sujit Patterson MD electronically signed on 09/11/2023 3:43:05 PM with status of Final
== END ==
LOC: HO.CARD 08:53
PROVIDERS: PCP Internal Medicine; Visit Provider Nurse Practitioner
DX: J81.1 Chronic pulmonary edema (principal)
CPT/HCPCS: 93306; Q9957

== ENCOUNTER → 2023-09-11 09:08 | Outpatient (BNV) | payer OTHER, SELFPAY | PROVIDERS: PCP Internal Medicine; Visit Provider Internal Medicine | DX: I42.2 Other hypertrophic cardiomyopathy (principal); J81.1 Chronic pulmonary edema | CPT/HCPCS: 93306 ==

== ENCOUNTER 2023-09-14 14:15 | Outpatient (REF) | payer OTHER, SELFPAY ==
--- NOTE | 2023-09-14 14:17 | EMG_ITS ---
Chief complaint: 1 month of pain coming from right trapezius area going down to arm, with numbness on 3rd and 4th digits Reason for referral: Evaluate for cervical radiculopathy Referred by: Dr. Soriano Procedure done: right upper extremity NCS/EMG Precautions and/or limitations: None The limb temperature was monitored continuously and remained between 32-36 degrees C during the performance of the NCS. Nerve Conduction Studies Anti Sensory Summary Table ?Stim Site NR Onset (ms) Norm Onset (ms) Peak (ms) Norm Peak (ms) O-P Amp (?V) Norm O-P Amp Site1 Site2 Delta-0 (ms) Dist (cm) Jai (m/s) Norm Jai (m/s) Right Median Anti Sensory (2nd Digit) Wrist ? 2.0 3.3 <3.6 12.7 >10 Wrist 2nd Digit 2.0 14.0 70 Right Ulnar Anti Sensory (5th Digit) Wrist ? 2.0 3.1 <3.7 17.7 >15.0 Wrist 5th Digit 2.0 14.0 70 Motor Summary Table ?Stim Site NR Onset (ms) Norm Onset (ms) O-P Amp (mV) Norm O-P Amp iAmp (mV) Amp (1st) (%) Site1 Site2 Delta-0 (ms) Dist (cm) Jai (m/s) Norm Jai (m/s) Right Median Motor (Abd Poll Brev) Wrist ? 3.6 <3.9 9.2 >4.5 11.9 100.0 Elbow Wrist 4.1 22.0 54 >45 Elbow ? 7.7 8.3 10.5 90.2 Right Ulnar Motor (Abd Dig Minimi) Wrist ? 3.0 <3.0 5.0 >5 6.1 100.0 B Elbow Wrist 3.2 20.0 63 >45 B Elbow ? 6.2 3.1 3.9 62.0 A Elbow B Elbow 1.1 10.0 91 >45 A Elbow ? 7.3 4.5 5.5 90.0 Comparison Summary Table ?Stim Site NR Peak (ms) Norm Peak (ms) P-T Amp (?V) Site1 Site2 Delta-P (ms) Norm Delta (ms) Right Median/Radial Dig I Comparison (Digit 1 - 10cm) Median ? 2.6 <2.9 35.3 Median Radial 0.2 Radial ? 2.4 <2.8 21.9 EMG ?Side Muscle Nerve Root Ins Act Fibs Psw Amp Dur Poly Recrt Int Pat Comment Right 1stDorInt Ulnar C8-T1 Nml Nml Nml Nml Nml 0 Nml Complete Right FlexCarRad Median C6-7 Nml Nml Nml Nml Nml 0 Nml Complete Right Biceps Musculocut C5-6 Nml Nml Nml Nml Nml 0 Nml Complete Right Triceps Radial C6-7-8 Nml Nml Nml Nml Nml 0 Nml Complete Right Deltoid Axillary C5-6 Nml Nml Nml Nml Nml 0 Nml Complete FINDINGS: All motor and sensory nerves tested showed normal latencies, amplitudes and conduction velocities. Concentric needle EMG was performed in selected muscles of the right upper extremity. Study did not reveal signs of electric abnormalities as shown in the table above. IMPRESSION: 1. This is a normal study. 2. There is no electrodiagnostic evidence for median neuropathy, ulnar neuropathy, brachial plexopathy, or cervical radiculopathy. Thank you for your kind referral. Jeanne Mae MD, FELIX Board Certified, [place] [employer] and [employer] (ABPMR) Board Certified, [place] Board of Electrodiagnostic [employer] (ABEM) CODIN [id number] MTDD
== END 2023-09-14 14:16 | disposition home or self-care (01) ==
LOC: HO.NEURO 14:15
PROVIDERS: PCP Internal Medicine; Visit Provider Internal Medicine
DX: Z13.89 Encounter for screening for other disorder (principal)

== ENCOUNTER → 2023-09-14 14:17 | Outpatient (BNV) | payer OTHER, SELFPAY | PROVIDERS: PCP Internal Medicine; Visit Provider Physical Medicine & Rehabilitation | DX: R20.0 Anesthesia of skin (principal); M25.511 Pain in right shoulder; M79.601 Pain in right arm | CPT/HCPCS: 95886; 95909 ==

== ENCOUNTER 2023-10-01 07:53 | Outpatient (AMB) | payer OTHER, SELFPAY ==
[2023-10-01 07:59] VITALS: BP 132/70; PULSE 84; O2SAT 97; BMI 34.3
--- NOTE | 2023-10-01 07:59 | MHC.PC.OV ---
Vital Signs 10/01/23 07:59 Height 5 ft 4 in Weight 200 lb BMI 34.3 BP 132/70 Blood Pressure Location Lt brachial Position Sitting Pulse 84 Pulse Source Pulse Oximeter Pulse Oximetry (%) 97 Oxygen Delivery Method Room Air Intake Visit Reasons: [facility] - Shoulder/Arm Pain Allergies No Known Allergies [No Known Allergies*] Allergy (Verified 10/01/23 08:21) Medication List - Last Reconciled 10/01/23 by Rachel Castillo PA-C amlodipine 5 mg PO DAILY aspirin 81 mg PO DAILY atorvastatin 80 mg PO DAILY blood sugar diagnostic (FreeStyle Lite Strips) As directed check the BS TID blood-glucose meter (SimpleRelevanceuch Ultra2 Meter) As directed cholecalciferol (vitamin D3) 25 mcg PO DAILY flash glucose sensor (FreeStyle Kisha 2 Sensor kit) three times a day insulin aspart U-100 (Novolog FlexPen U-100 Insulin aspart) 8 - 36 units subcut TID insulin glargine 27 units subcut DAILY lisinopril 30 mg PO DAILY 90 days meloxicam 7.5 mg PO DAILY meloxicam 7.5 mg PO DAILY metformin 500 mg PO BID metoprolol succinate ER 25 mg PO BID 90 days pen needle, diabetic (1st Tier Unifine Pentips) As directed injection 4 times a day [PULL UPS Extra Large As directed] torsemide 20 mg PO DAILY Tobacco use date assessed: 04/13/23 Fall risk assessment: 1 Fall in past year (Slid off sofa, states did not really fall. ) Last assessed Fall Risk: 10/01/23 Dental Screening Dental Screen Date: 04/13/23 HPI [facility] - Shoulder/Arm Pain HPI Details 78-year-old female obese with controlled diabetes mellitus, coronary artery disease, hypertension, and hypercholesterolemia last seen July 2023 coming in for ED follow up. Patient was seen in [facility] ED 08/20/2023 for 3-4 weeks of right shoulder and hip pain without inciting event.? Patient has tried PT and endorsed more pain with this.?Shoulder and hip x-rays without evidence of fracture or dislocation.? Patient also experiencing numbness and tingling in the hand, EMG completed 09/14/2023 showed: no electrodiagnostic evidence for median neuropathy, ulnar neuropathy, brachial plexopathy, or cervical radiculopathy. Was also found to have Mild pulmonary edema. ProBNP was elevated and CT angiogram obtained which was unremarkable. Patient states she spoke with her tool and die technician Dr. Patterson who is aware of the pulmonary edema and is following up with him in September. Patient was scheduled to follow up with Cardiology 09/27/2023 but missed her appointment due to knee pain. Patient states she has had numbness in her right arm which has been constant since her ED visit and also has weakness in the arm and hand. Denies tingling or loss of sensation in the hands or fingers. Shoulder pain today is about the same but the pain is decreased. Patient has been using heat for the shoulder with mild relief. Denies any shoulder pain prior to ED visit. FOR[facility]LY [facility] Medical History Pulmonary edema COVID-19 virus infection Obesity (BMI 30-39.9) Diabetic nephropathy Essential hypertension Lab test positive for detection of COVID-19 virus Toxic multinodular goiter Tubular adenoma of colon Coronary artery disease Hypercholesterolemia Type 2 diabetes mellitus with hyperglycemia Surgical History Hx of colonoscopy Status post coronary artery bypass graft History of coronary artery bypass graft x 3 (~09/17/19) History of cardiac catheterization (~09/16/19) History of total left knee replacement H/O umbilical hernia repair S/P lumpectomy, left breast Family History Father No problems noted. Mother No problems noted. Social History Housing: Apartment Alcohol intake: current Alcohol intake frequency: holidays/special occasions only Patient Tobacco Use Status: Former Tobacco user Tobacco use type: Cigarette Years Smoked: 1999 quit e-Cigarette/Vaping Use: Never Used Second Hand Smoke Exposure: No Advance Directives Date on File: 01/08/20 service: No Current occupational status: retired Cognitive needs: Yes (cane ) Hearing needs: No Vision needs: Yes (glasses) Questionnaire PHQ-9 Over the last 2 weeks, how often have you been bothered by any of the following problems? 1. Little interest or pleasure in doing things: not at all 2. Feeling down, depressed, or hopeless: not at all 3. Trouble falling or staying asleep, or sleeping too much: not at all 4. Feeling tired or having little energy: not at all 5. Poor appetite or overeating: not at all 6. Feeling bad about yourself - or that you are a failure or have let yourself or your family down: not at all 7. Trouble concentrating on things, such as reading the newspaper or watching television: not at all 8. Moving or speaking so slowly that other people could have noticed. Or the opposite - being so fidgety or restless that you have been moving around a lot more than usual: not at all 9. Thoughts that you would be better off or of hurting yourself in some way: not at all Total score: 0 Depression Screening Interpretation: Negative Depression Screening Done: Yes Source: Developed by Drs. Reid Pena, Claribel Gomez, Randy Dukes and colleagues, with an educational bala from [employer]. Thrive Questionnaire Date Thrive assessed: 04/13/23 AUDIT C Alcohol Use Questionnaire (AUDIT-C) 1. How often do you have a drink containing alcohol?: Monthly or less 2. How many drinks containing alcohol do you have on a typical day when you are drinking?: 1 or 2 3. How often do you have six or more drinks on one occasion?: Never Total Score: 1 ROSARIO-7 AMB Questionnaire ROSARIO-7 Date ROSARIO - 7 assessed: 04/13/23 Source: Developed by Drs. Reid Pena, Claribel Gomez, Randy Dukes and colleagues, with an educational bala from [employer]. Review of Systems Const Reports fever(s) and Denies poor appetite Eyes Reports no additional complaints ENT Reports no additional complaints and Reports Normal hearing present Card Denies chest pain, Denies chest pain with activity, Denies syncope, Denies rapid heart rate and Denies dyspnea Resp Denies cough and Denies dyspnea GI Denies diarrhea, Denies nausea and Denies vomiting Musc Details: Right shoulder pain and weakness with numbness to hand. Pain does not radiate to the back. Denies tingling in fingertips or loss of sensation. Denies tingling Skin/Breast Reports system reviewed and no additional complaints, except as documented Neuro Details: Right arm and shoulder weakness. Reports Normal hearing present, Denies confusion, Denies syncope and Denies tingling Psych Reports no additional complaints and Denies confusion Physical exam (Primary Care) Vital Signs: Oxygen Delivery Method Room Air 10/01/23 07:59 Tobacco/Smoking Status: Tobacco use Status Tobacco use date assessed 04/13/23 10/01/23 08:03 Patient Tobacco Use Status Former Tobacco user 10/01/23 08:03 Tobacco use type Cigarette 10/01/23 08:03 e-Cigarette/Vaping Use Never Used 10/01/23 08:03 PHQ-9: PHQ-9 Score PHQ-9: Total score 0 10/01/23 08:03 Depression Screening Interpretation: Negative Thrive Assessment: Date of Thrive Assessment Date Thrive assessed 04/13/23 10/01/23 08:03 Const General: No confusion Orientation/consciousness: No confusion HENMT Head: Yes normocephalic Eyes General: appearance normal, both eyes and all related structures Conjunctivae: conjunctivae normal Neck Neck: No lymphadenopathy Chest Chest palpation & inspection: normal inspection of the chest Resp Effort & Inspection: normal respiratory effort, able to speak in complete sentences, no audible wheezes and no cough Auscultation: clear to auscultation bilaterally, no crackles, no rales, no rhonchi, no wheezes and lung sounds not diminished Cardio Rate: regular rate Rhythm: regular rhythm Heart sounds: S1 normal heart sound present and S2 normal heart sound present Peripheral pulses: radial pulses present Skin General skin exam: no rashes or lesions noted Rashes: no rashes Neuro General: gait normal (Ambulates with cane) and No confusion Cranial nerves: Yes Normal hearing present Cognition (Neuro): normal cognition Gait exam (Neuro): Normal gait present Extrem Other: Normal radial and ulnar pulses bilaterally. No loss of right radial pulse with rotation of the head to the right. Normal strength, sensation, and movement of right hand. Weakness and pain with internal rotation of the right shoulder and with cross body reach. Positive Aguayo test on right side. Tenderness to palpation of posterior aspect of shoulder. General: Yes normal to inspection, Yes full ROM and No edema Right upper extremity: normal to inspection Left upper extremity: normal to inspection Psych Appearance: grossly normal Mental Status: mental status grossly normal Speech and movement: Normal speech and movement present Affect: normal affect Attitude: cooperative Assessment and Plan Assessment & Plan (1) Numbness of right hand: Code(s): R20.0 - Anesthesia of skin Plan: Patient has intact sensation of the right hand and denies tingling in that hand. Numbness on the dorsal aspect of the hand that does not radiate to the fingers. Numbness is intermittent but happens daily. Appears to be related to pain in that right shoulder. Patient states she braces the wrist and finds improvement in the numbness. EMG completed and within normal limits. Patient agrees to follow up if numbness worsens, excessive weakness or has loss of sensation in the hand. (2) Right shoulder pain: Code(s): M25.511 - Pain in right shoulder Qualifiers: Chronicity: acute Qualified Code(s): M25.511 - Pain in right shoulder Plan: Right posterior shoulder pain and weakness with radiation down the arm into the hand. Denies radiation to the back. Patient states this began the day of her ED visit. Denies any inciting events or injury. X-ray without acute fracture or dislocation. Patient requested refill of meloxicam as this has helped with pain in the past. Patient offered PT or orthopedics referral and has declined at this time. We will continue with conservative measures at this time and follow-up if further treatment is desired. Medications: Refilled meloxicam 7.5 mg PO DAILY 30 tabs 0RF M25.511 - Pain in right shoulder Coding Level of Care Code Est Pt Level 4 (71645) Diagnoses Numbness of right hand R20.0 Acute pain of right shoulder M25.511 Chronicity: acute
== END 2023-10-01 08:46 | disposition home or self-care (01) ==
PROVIDERS: PCP Internal Medicine
DX: R20.0 Anesthesia of skin (principal); M25.511 Pain in right shoulder
CPT/HCPCS: 99214

== ENCOUNTER 2023-10-15 12:27 | Outpatient (AMB) | payer OTHER, SELFPAY ==
[2023-10-15 12:32] VITALS: BP 158/72; PULSE 93; TEMP 36.7; O2SAT 90; BMI 34.7
--- NOTE | 2023-10-15 12:32 | AM.OFFWIN_ITS ---
Intake Vital Signs 10/15/23 12:32 Height 5 ft 4 in Weight 202 lb 6 oz BMI 34.7 BP 158/72 H Blood Pressure Location Rt brachial Position Sitting Pulse 93 Pulse Source Pulse Oximeter Temp 98.1 F Temp Source Oral Pulse Oximetry (%) 90 L Oxygen Delivery Method Room Air Intake Visit Reasons: EP RT shoulder/hand concerns Intake Note: Pt is here today for Rt hand pain, unable to close it Patient Tobacco Use Status: Former Tobacco user Allergies No Known Allergies [No Known Allergies*] Allergy (Verified 10/15/23 12:35) Do you need a note to return to daycare/school/sports/work: No HPI HPI Comments History of Present Illness Details patient presents to the walk-in today for sick visit endorses right shoulder and right hand pain for last 2 months evaluated by primary care doctor 2 weeks ago. Prior to this she was evaluated in the emergency room. She has had x-rays that were unremarkable. EMG negative. denies any new symptoms, just getting frustrated because symptoms are unchanged PCP note from 10/01/2023: 78-year-old female obese with controlled diabetes mellitus, coronary artery disease, hypertension, and hypercholesterolemia last seen July 2023 coming in for ED follow up. Patient was seen in [facility] ED 08/20/2023 for 3-4 weeks of right shoulder and hip pain without inciting event.? Patient has tried PT and endorsed more pain with this.?Shoulder and hip x-rays without evidence of fracture or dislocation.? Patient also experiencing numbness and tingling in the hand, EMG completed 09/14/2023 showed: no electrodiagnostic evidence for median neuropathy, ulnar neuropathy, brachial plexopathy, or cervical radiculopathy. Was also found to have Mild pulmonary edema. ProBNP was elevated and CT angiogram obtained which was unremarkable. Patient states she spoke with her sitecore developer Dr. Patterson who is aware of the pulmonary edema and is following up with him in September. Patient was scheduled to follow up with Cardiology 09/27/2023 but missed her appointment due to knee pain. Patient states she has had numbness in her right arm which has been constant since her ED visit and also has weakness in the arm and hand. Denies tingling or loss of sensation in the hands or fingers. Shoulder pain today is about the same but the pain is decreased. Patient has been using heat for the shoulder with mild relief. Denies any shoulder pain prior to ED visit. [facility] Medical History Pulmonary edema COVID-19 virus infection Obesity (BMI 30-39.9) Diabetic nephropathy Essential hypertension Lab test positive for detection of COVID-19 virus Toxic multinodular goiter Tubular adenoma of colon Coronary artery disease Hypercholesterolemia Type 2 diabetes mellitus with hyperglycemia Surgical History Hx of colonoscopy Status post coronary artery bypass graft History of coronary artery bypass graft x 3 (~09/17/19) History of cardiac catheterization (~09/16/19) History of total left knee replacement H/O umbilical hernia repair S/P lumpectomy, left breast Family History Father No problems noted. Mother No problems noted. Social History Housing: Apartment Alcohol intake: current Alcohol intake frequency: holidays/special occasions only Patient Tobacco Use Status: Former Tobacco user Tobacco use type: Cigarette Years Smoked: 1999 quit e-Cigarette/Vaping Use: Never Used Second Hand Smoke Exposure: No Advance Directives Date on File: 01/08/20 service: No Current occupational status: retired Cognitive needs: Yes (cane ) Hearing needs: No Vision needs: Yes (glasses) Review of Systems Const All systems reviewed & are unremarkable except as noted in HPI and below Physical Exam Vital Signs: Last Vital Signs Temp 98.1 F 10/15/23 12:32 Pulse 93 10/15/23 12:32 BP 158/72 H 10/15/23 12:32 Pulse Ox 90 L 10/15/23 12:32 Oxygen Delivery Method Room Air 10/15/23 12:32 BMI result Body Mass Index 34.7 General: awake, alert, oriented. Answers questions appropriately. Fully engaged in examination. Skin: warm, dry, intact HEENT: Normocephalic. Hearing intact. Cardiac: External chest normal in appearance. Respiratory: No cough, audible wheezing or stridor. Abdomen: without gross distension. MS: right shoulder: range of motion.Pain with overhead and behind the back reach. decreased community development planner strength on the right. Neurological: Oriented to person, place, time and situation. Thought process intact. No gait abnormalities appreciated. Psychiatric: Appropriate mood and affect. Good judgment and insight. Assessment & Plan Assessment & Plan (1) Painful arc syndrome of right shoulder: Code(s): M75.101 - Unspecified rotator cuff tear or rupture of right shoulder, not specified as traumatic Plan Continue with meloxicam as prescribed referral placed for Orthopedics patient denies referral for physical therapy follow up with PCP or return here for any new or worsening symptoms Orders: Referrals Orthopedics Referral M75.101 - Unspecified rotator cuff tear or rupture of right shoulder, not specified as traumatic Coding Level of Care Code Est Pt Level 3 (14464) Diagnoses Painful arc syndrome of right shoulder M75.101
== END 2023-10-15 14:35 | disposition home or self-care (01) ==
PROVIDERS: PCP Internal Medicine; Visit Provider Registered Nurse Emergency
DX: M75.101 Unspecified rotator cuff tear or rupture of right shoulder, not specified as traumatic (principal)
CPT/HCPCS: 99213

== ENCOUNTER 2023-10-30 13:00 | Outpatient (AMB) | payer OTHER, SELFPAY ==
[2023-10-30 13:29] VITALS: BP 116/58; PULSE 65; BMI 34.1
--- NOTE | 2023-10-30 13:29 | A.OFFVIS_ITS ---
Vital Signs 10/30/23 13:29 Height 5 ft 4 in Weight 198 lb 6.656 oz BMI 34.1 BP 116/58 L Blood Pressure Location Lt brachial Position Sitting Pulse 65 Pulse Source Pulse Oximeter Intake Visit Reasons: 6 wk f/up labs/ echo (rs) Allergies No Known Allergies [No Known Allergies*] Allergy (Verified 10/15/23 12:35) HPI Comments Details: 78-year-old female presents today for a follow-up. She was seen at [facility] on 08/20/2023 regarding shoulder pain that she has been having and she reported shortness of breath and followed up with us. She reports her shortness of breath has improved since the last visit and has no concerns to report. [facility] Medical History Pulmonary edema COVID-19 virus infection Obesity (BMI 30-39.9) Diabetic nephropathy Essential hypertension Lab test positive for detection of COVID-19 virus Toxic multinodular goiter Tubular adenoma of colon Coronary artery disease Hypercholesterolemia Type 2 diabetes mellitus with hyperglycemia Surgical History Hx of colonoscopy Status post coronary artery bypass graft History of coronary artery bypass graft x 3 (~09/17/19) History of cardiac catheterization (~09/16/19) History of total left knee replacement H/O umbilical hernia repair S/P lumpectomy, left breast Family History Father No problems noted. Mother No problems noted. Social History Housing: Apartment Alcohol intake: current Alcohol intake frequency: holidays/special occasions only Patient Tobacco Use Status: Former Tobacco user Tobacco use type: Cigarette Years Smoked: 1999 quit e-Cigarette/Vaping Use: Never Used Second Hand Smoke Exposure: No Advance Directives Date on File: 01/08/20 service: No Current occupational status: retired Cognitive needs: Yes (cane ) Hearing needs: No Vision needs: Yes (glasses) Review of Systems Const Denies weakness ENT Denies dizziness Card Denies chest pain, Denies chest pain with activity, Denies syncope, Denies rapid heart rate, Denies pedal edema, Denies edema, Denies leg edema, Denies lightheadedness, Denies palpitations, Denies dyspnea, Denies dyspnea on exertion and Denies orthopnea Resp Denies cough, Denies dyspnea and Denies dyspnea on exertion GI Denies hematochezia and Denies change in stool character Musc Denies abnormal gait, Denies muscle cramps, Denies muscle weakness, Denies numbness, Denies radiating pain into limb and Denies tingling Neuro Denies abnormal gait, Denies dizziness, Denies syncope, Denies numbness, Denies tingling and Denies weakness Endo Denies palpitations Physical Exam Vital Signs: Last Vital Signs Pulse 65 10/30/23 13:29 BP 116/58 L 10/30/23 13:29 BMI result Body Mass Index 34.1 Const General: healthy appearing and no acute distress Orientation/consciousness: patient oriented x3 HEENT Head: Yes normal to inspection Eyes General: appearance normal, both eyes and all related structures Neck Neck: Yes normal visual inspection Chest Chest palpation & inspection: normal inspection of the chest Resp Effort & Inspection: normal respiratory effort Auscultation: clear to auscultation bilaterally Cardio Jugular venous distension: no JVD Palpation: normal PMI Rate: regular rate Rhythm: regular rhythm Heart sounds: S1 normal heart sound present, S2 normal heart sound present, no click, no gallops, no murmurs and no rubs GI Inspection: Yes normal to inspection Palpation (GI): Soft to palpation Skin General skin exam: no rashes or lesions noted Neuro General: patient oriented x3 Extrem General: Yes normal to inspection Psych Appearance: grossly normal Results Reviewed Results Reviewed: Echocardiogram Conclusions: - The left ventricular systolic function is normal. The visually estimated ejection fraction is between 60-65%. - The basal inferior segment is akinetic. - No obvious valvular pathology seen on this study. Assessment & Plan Assessment & Plan (1) Status post coronary artery bypass graft: Code(s): Z95.1 - Presence of aortocoronary bypass graft Category: Medical (2) Shortness of breath: Code(s): R06.02 - Shortness of breath Category: Medical Plan Echcoardiogram showing no significant changes from 2020 study. Breathing has improved. Patient is to continue medications. On aspirin and statins. Advised to get repeat labs prior to next visit. Discussed heart healthy diet including no added salt, avoiding fried and fatty foods and exercise as tolerated. Report any new or worsening symptoms. ED care if needed. Orders: Orders Lipid Panel 10/30/23 Z95.1 - Presence of aortocoronary bypass graft Coding Level of Care Code Est Pt Level 3 (83088) Diagnoses Status post coronary artery bypass graft Z95.1 Shortness of breath R06.02
== END 2023-10-30 13:43 | disposition home or self-care (01) ==
PROVIDERS: PCP Internal Medicine; Visit Provider Nurse Practitioner
DX: Z95.1 Presence of aortocoronary bypass graft (principal); R06.02 Shortness of breath
CPT/HCPCS: 99213

== ENCOUNTER → 2023-10-30 13:00 | Outpatient (BNVA) | payer OTHER, SELFPAY | PROVIDERS: PCP Internal Medicine; Visit Provider Nurse Practitioner | DX: R06.02 Shortness of breath (principal); Z95.1 Presence of aortocoronary bypass graft | CPT/HCPCS: 99212 ==

== ENCOUNTER 2023-12-17 10:34 | Outpatient (AMB) | payer OTHER, SELFPAY ==
--- NOTE | 2023-12-17 10:39 | MHC.PC.OV ---
Vital Signs 12/17/23 10:40 Height 5 ft 4 in Weight 201 lb 8 oz BMI 34.6 BP 140/66 H Blood Pressure Location Lt brachial Position Sitting Pulse 74 Pulse Source Pulse Oximeter Pulse Oximetry (%) 95 Oxygen Delivery Method Room Air Intake Visit Reasons: Follow Up Tire Care Manager Required: No Accompanied by: Self / Same As Patient Allergies No Known Allergies [No Known Allergies*] Allergy (Verified 12/17/23 10:47) Tobacco use date assessed: 04/13/23 Fall risk assessment: No Falls in past year Last assessed Fall Risk: 12/17/23 Dental Screening Dental Screen Date: 04/13/23 HPI Follow Up HPI Details 78-year-old obese female with diabetes mellitus hypercholesterolemia hypertension coronary artery disease coming in for follow-up. Last seen in July 2023. Patient's colonoscopy is up-to-date August 2023 mammogram declined. Patient is being followed up by Endocrinology and December had the urine tested with high proteinuria. Vitamin-D is normal B12 is low blood count mild anemia at 11.7 and 39.5 platelet count normal TSH normal HDL of 47 LDL of 47 triglyceride is 155 total cholesterol is 125 hemoglobin A1c of 7.5 the electrolytes are normal with a BUN of 14 and creatinine of 1 liver numbers are within normal limits. Patient has followed up with Cardiology also 10/30/2023 echocardiogram EF normal basal segment akinetic no valvular problem patient was seen by the physician's physical laboratory assistant in September also for shoulder arm pain noted also some numbness on the right hand EMG testing were negative. Right shoulder x-ray negative placed on anti-inflammatory declined PT. Patient had a CT angio of the chest in August 2023 small sliding hiatal hernia otherwise negative. Patient did have colonoscopy also in 08/20/2023 revealing tubular adenoma. [facility] Medical History Pulmonary edema COVID-19 virus infection Obesity (BMI 30-39.9) Diabetic nephropathy Essential hypertension Lab test positive for detection of COVID-19 virus Toxic multinodular goiter Tubular adenoma of colon Coronary artery disease Hypercholesterolemia Type 2 diabetes mellitus with hyperglycemia Surgical History Hx of colonoscopy Status post coronary artery bypass graft History of coronary artery bypass graft x 3 (~09/17/19) History of cardiac catheterization (~09/16/19) History of total left knee replacement H/O umbilical hernia repair S/P lumpectomy, left breast Family History Father No problems noted. Mother No problems noted. Social History Housing: Apartment Alcohol intake: current Alcohol intake frequency: holidays/special occasions only Patient Tobacco Use Status: Former Tobacco user Tobacco use type: Cigarette Years Smoked: 1999 quit e-Cigarette/Vaping Use: Never Used Second Hand Smoke Exposure: No Advance Directives Date on File: 01/08/20 service: No Current occupational status: retired Cognitive needs: Yes (cane ) Hearing needs: No Vision needs: Yes (glasses) Questionnaire PHQ-9 Over the last 2 weeks, how often have you been bothered by any of the following problems? 1. Little interest or pleasure in doing things: not at all 2. Feeling down, depressed, or hopeless: not at all 3. Trouble falling or staying asleep, or sleeping too much: not at all 4. Feeling tired or having little energy: not at all 5. Poor appetite or overeating: not at all 6. Feeling bad about yourself - or that you are a failure or have let yourself or your family down: not at all 7. Trouble concentrating on things, such as reading the newspaper or watching television: not at all 8. Moving or speaking so slowly that other people could have noticed. Or the opposite - being so fidgety or restless that you have been moving around a lot more than usual: not at all 9. Thoughts that you would be better off or of hurting yourself in some way: not at all Total score: 0 Depression Screening Interpretation: Negative Depression Screening Done: Yes 39153 - PHQ-9 Billing: Yes Source: Developed by Drs. Reid Pena, Claribel Gomez, Randy Dukes and colleagues, with an educational bala from [employer]. Thrive Questionnaire Date Thrive assessed: 12/17/23 I am a: Patient What is your living situation today?: I have a steady place to live Within the past 12 months, did the food you bought not last and you didn't have the money to get more?: Never true Within the past 12 months, did you worry whether your food would run out before you got money to buy more?: Never true Do you have trouble paying for medicines?: No Do you have trouble getting transportation to medical appointments?: No Do you have trouble paying your heating and electricity bill?: No Do you have trouble taking care of your child, family member or friend?: No Do you have trouble with day-to-day activities such as bathing, preparing meals, shopping, managing finances, etc.?: No Are you currently unemployed and looking for a job?: No Are you interested in more education?: No Please select the resources that you would like help with: None Currently or been in a relationship where the following occur: No concerns reported THRIVE Score: 0 AUDIT C Alcohol Use Questionnaire (AUDIT-C) 1. How often do you have a drink containing alcohol?: Monthly or less 2. How many drinks containing alcohol do you have on a typical day when you are drinking?: 1 or 2 3. How often do you have six or more drinks on one occasion?: Never Total Score: 1 ROSARIO-7 AMB Questionnaire ROSARIO-7 Date ROSARIO - 7 assessed: 12/17/23 Feeling nervous, anxious, or on edge: 0 = Not at all Not being able to stop or control worryin = Not at all Worrying too much about different things: 0 = Not at all Trouble relaxin = Not at all Being so restless that it is hard to sit still: 0 = Not at all Becoming easily annoyed or irritable: 0 = Not at all Feeling afraid as if something awful might happen: 0 = Not at all Total ROSARIO-7 score (0-4 normal; 5-9 mild; 10-14 moderate; 15-21 severe): 0 Source: Developed by Drs. Reid Pena, Claribel Gomez, Randy Dukes and colleagues, with an educational bala from [employer]. ROSARIO-7 Assessment Billing ROSARIO-7 Assessment Tool: ROSARIO-7 Assessment 60864 Physical exam (Primary Care) Vital Signs: Last Vital Signs Pulse 74 12/17/23 10:40 BP 140/66 H 12/17/23 10:40 Pulse Ox 95 12/17/23 10:40 Oxygen Delivery Method Room Air 12/17/23 10:40 BMI result Body Mass Index 34.6 Tobacco/Smoking Status: Tobacco use Status Tobacco use date assessed 04/13/23 12/17/23 10:48 Patient Tobacco Use Status Former Tobacco user 12/17/23 10:48 Tobacco use type Cigarette 12/17/23 10:48 e-Cigarette/Vaping Use Never Used 12/17/23 10:48 PHQ-9: PHQ-9 Score PHQ-9: Total score 0 12/17/23 10:50 Depression Screening Interpretation: Negative Thrive Assessment: Date of Thrive Assessment Date Thrive assessed 12/17/23 12/17/23 10:48 Currently or been in a relationship where the following occur: No concerns reported Const General: alert; No acute distress Eyes Conjunctivae: conjunctivae normal Resp Auscultation: clear to auscultation bilaterally Cardio Rate: regular rate Rhythm: regular rhythm GI Inspection: Yes normal to inspection Extrem General: Yes normal to inspection and No edema Results AMB Hemoglobin A1c AMB Hemoglobin A1c 7.3 % Last Edit by ROSARIO Madison on 12/17/23 10:51 Results Reviewed Results Reviewed: Laboratory Last Values Hgb A1c (Clinic) 7.3 % (4.0-6.0) H 12/17/23 10:36 Assessment and Plan Assessment & Plan (1) Type 2 diabetes mellitus with hyperglycemia: Comment: [facility] Code(s): E11.65 - Type 2 diabetes mellitus with hyperglycemia Qualifiers: Diabetes mellitus 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 Hemoglobin A1c goal of less than 7.0 patient's hemoglobin A1c right now is 7.3 patient is being followed up by Endocrinology. Patient on NovoLog and glargine. Metformin 500 mg twice a day goal is less than 7. (2) Hypercholesterolemia: Comment: March 2022 Code(s): E78.00 - Pure hypercholesterolemia, unspecified Plan: Avoid fried foods, chicken skin, eggs, butter margarine, pastries and meat. Be it pork or beef they have a lot of cholesterol LDL goal of less than 70 and triglyceride of less than 150 December last blood work. (3) Coronary artery disease: Comment: nuclear stress test positive September 2019 EF 60 % moderate a symmetrical septal hypertrophy, catheterization done and bypass September 2019 CABG x3 Code(s): I25.10 - Atherosclerotic heart disease of [place] coronary artery without angina pectoris Qualifiers: Coronary Disease-Associated Artery/Lesion type: [place] artery [place] vs. transplanted heart: [place] heart Associated angina: without angina Qualified Code(s): I25.10 - Atherosclerotic heart disease of [place] coronary artery without angina pectoris Plan: Control the cholesterol, weight, blood pressure, diabetes continue with aspirin 81 mg once a day (4) Essential hypertension: Code(s): I10 - Essential (primary) hypertension Plan: Continue with blood pressure medication. Decrease salt intake and exercise takes amlodipine 5 mg once a day lisinopril 30 mg once a day and metoprolol of 25 mg twice a day (5) Obesity (BMI 30-39.9): Code(s): E66.9 - Obesity, unspecified Plan: Diet and exercise Orders: Orders AMB Hemoglobin A1c Today E11.65 - Type 2 diabetes mellitus with hyperglycemia, Z13.9 - Encounter for screening, unspecified, Z79.4 - USP (current) use of insulin Coding Level of Care Code Est Pt Level 4 (78957) Diagnoses Type 2 diabetes mellitus with hyperglycemia, with long-term current use of insulin E11.65; Z79.4 Diabetes mellitus jail insulin use: with local intermodal truck driver use Hypercholesterolemia E78.00 Coronary artery disease involving [place] coronary artery of [place] heart without angina pectoris I25.10 Coronary Disease-Associated Artery/Lesion type: [place] artery [place] vs. transplanted heart: [place] heart Associated angina: without angina Essential hypertension I10 Obesity (BMI 30-39.9) E66.9 Additional Codes ROSARIO-7 Assessment Billing - ROSARIO-7 Assessment Tool: ROSARIO-7 Assessment 97137 ([id number])
[2023-12-17 10:40] VITALS: BP 140/66; PULSE 74; O2SAT 95; BMI 34.6
== END 2023-12-17 11:30 | disposition home or self-care (01) ==
PROVIDERS: PCP Internal Medicine; Visit Provider Internal Medicine
DX: E11.65 Type 2 diabetes mellitus with hyperglycemia (principal); Z79.4 Long term (current) use of insulin; E78.00 Pure hypercholesterolemia, unspecified; I25.10 Atherosclerotic heart disease of native coronary artery without angina pectoris; I10 Essential (primary) hypertension; E66.9 Obesity, unspecified; Z13.9 Encounter for screening, unspecified

== ENCOUNTER → 2023-12-17 10:34 | Outpatient (BNVA) | payer OTHER, SELFPAY | PROVIDERS: PCP Internal Medicine; Visit Provider Internal Medicine | DX: E11.65 Type 2 diabetes mellitus with hyperglycemia (principal); E78.00 Pure hypercholesterolemia, unspecified; I25.10 Atherosclerotic heart disease of native coronary artery without angina pectoris; I10 Essential (primary) hypertension; E66.9 Obesity, unspecified; Z79.4 Long term (current) use of insulin | CPT/HCPCS: 83036; 99212 ==

== ENCOUNTER 2023-12-21 11:07 | Outpatient (REF) | payer OTHER, SELFPAY ==
[2023-12-21 14:11] LABS: Influenza A PCR NEGATIVE (Negative); Influenza B PCR NEGATIVE (Negative); Resp Syncy Virus RNA Qual PCR NEGATIVE (Negative); SARS COV2 PCR INHOUSE POSITIVE (Negative)
== END 2023-12-21 11:08 | disposition home or self-care (01) ==
LOC: HO.LAB 11:07
PROVIDERS: Physician Assistant; PCP Internal Medicine
DX: Z13.89 Encounter for screening for other disorder (principal)
CPT/HCPCS: 0241U; 99212

== ENCOUNTER 2023-12-21 11:07 | Outpatient (AMB) | payer OTHER, SELFPAY ==
[2023-12-21 11:12] VITALS: BP 168/90; PULSE 89; O2SAT 95; BMI 34.9
--- NOTE | 2023-12-21 11:12 | AM.OFFWIN_ITS ---
Intake Vital Signs 12/21/23 11:12 Height 5 ft 4 in Weight 203 lb 2 oz BMI 34.9 BP 168/90 H Blood Pressure Location Lt brachial Position Sitting Pulse 89 Pulse Source Pulse Oximeter Pulse Oximetry (%) 95 Oxygen Delivery Method Room Air Intake Visit Reasons: EP Cold symptoms Patient Tobacco Use Status: Former Tobacco user Allergies No Known Allergies [No Known Allergies*] Allergy (Verified 12/21/23 11:12) Do you need a note to return to daycare/school/sports/work: No HPI HPI Comments History of Present Illness Details Patient is a 78-year-old female complaining 1 day of chills and a dry cough, she also has been vomiting this morning and is actively vomiting during the exam. She denies any nausea or fevers or sinus pain or head congestion or ear pain. Her daughter is with her today and her daughter states that she tested positive for COVID a few days ago and the entire house is sick. She states that her mother does not have any history of COPD but does have diabetes and hypertension. She states she gave her mother some Robitussin last night with minimal relief. Patient states she is taking her medications as directed still [facility] Medical History Pulmonary edema COVID-19 virus infection Obesity (BMI 30-39.9) Diabetic nephropathy Essential hypertension Lab test positive for detection of COVID-19 virus Toxic multinodular goiter Tubular adenoma of colon Coronary artery disease Hypercholesterolemia Type 2 diabetes mellitus with hyperglycemia Surgical History Hx of colonoscopy Status post coronary artery bypass graft History of coronary artery bypass graft x 3 (~09/17/19) History of cardiac catheterization (~09/16/19) History of total left knee replacement H/O umbilical hernia repair S/P lumpectomy, left breast Family History Father No problems noted. Mother No problems noted. Social History Housing: Apartment Alcohol intake: current Alcohol intake frequency: holidays/special occasions only Patient Tobacco Use Status: Former Tobacco user Tobacco use type: Cigarette Years Smoked: 1999 quit e-Cigarette/Vaping Use: Never Used Second Hand Smoke Exposure: No Advance Directives Date on File: 01/08/20 service: No Current occupational status: retired Cognitive needs: Yes (cane ) Hearing needs: No Vision needs: Yes (glasses) Review of Systems Const All systems reviewed & are unremarkable except as noted in HPI and below Physical Exam Vital Signs: Last Vital Signs Pulse 89 12/21/23 11:12 BP 168/90 H 12/21/23 11:12 Pulse Ox 95 12/21/23 11:12 Oxygen Delivery Method Room Air 12/21/23 11:12 BMI result Body Mass Index 34.9 Const General: cooperative, healthy appearing, comfortable and no acute distress Orientation/consciousness: patient oriented x3 Limitations: no limitations HEENT Head: Yes normal to inspection Ears: hearing grossly normal bilaterally, external ears normal and TM's normal bilaterally General nose exam: Normal external nose present, Normal nares present and No nasal discharge present Face and sinus: Yes normal facial exam and Yes sinuses nontender Mouth: Normal oral and palatal mucosa present and moist mucous membranes Throat: Yes tonsils normal, Yes uvula midline and Yes posterior oropharynx abnormal (Erythema) Eyes General: appearance normal, both eyes and all related structures Neck Neck: Yes normal visual inspection Resp Effort & Inspection: normal respiratory effort, able to speak in complete sentences, Actively coughing, no respiratory distress, not tachypneic, no tripod positioning and no use of accessory muscles Auscultation: diminished lung sounds diffuse Cardio Rate: regular rate Rhythm: regular rhythm Heart sounds: normal S1 and S2 Skin General skin exam: no rashes or lesions noted Neuro General: patient oriented x3 Extrem General: Yes normal to inspection and Yes no clubbing, cyanosis or edema Assessment & Plan Assessment & Plan (1) Upper respiratory tract infection: Code(s): J06.9 - Acute upper respiratory infection, unspecified Plan: Sent for flu COVID and RSV, did discuss the use of Paxlovid and as long as there are no contraindications with her medications, we will send Paxlovid if she is positive. Also getting a chest x-ray this morning because her lung sounds were dim. Her blood pressure was elevated however she was actively vomiting so communicated to her daughter to make sure they check her blood sugar once she g ets settled back in at home and is no longer vomiting to make sure it has come down. Gave her the normal thresholds and advised her to call her primary care doctor if it is above the normal thresholds so they can discuss and recommend intervention.. Did tell her if she was lightheaded, felt dizzy or had a headache with a high blood pressure, she should go to the emergency department. Her daughter acknowledged understanding of all these instructions. Plan See above Orders: Orders XR chest 2V Today R05.9 - Cough, unspecified SARS-CoV2/FLU/RSV Today J06.9 - Acute upper respiratory infection, unspecified Coding Level of Care Code Est Pt Level 4 (62984) Diagnoses Upper respiratory tract infection J06.9
== END 2023-12-21 11:51 | disposition home or self-care (01) ==
PROVIDERS: PCP Internal Medicine; Visit Provider Physician Assistant
DX: J06.9 Acute upper respiratory infection, unspecified (principal)

== ENCOUNTER 2023-12-21 11:35 | Outpatient (REF) | payer OTHER, SELFPAY ==
--- NOTE | ~2023-12-21 | XR_ITS ---
EXAMINATION: XR CHEST CLINICAL INFORMATION: Cough. COMPARISON: October 31, 2018 TECHNIQUE: 2 views of the chest were obtained. FINDINGS: The lungs are well expanded. No focal consolidation. No pleural effusion. Cardiac silhouette is mildly prominent. Prior median sternotomy. XR/XR chest 2V IMPRESSION: No acute abnormality. Electronically signed by: Yohan Thomas MD 12/21/2023 01:30 PM EDT RP
== END 2023-12-21 11:36 | disposition home or self-care (01) ==
LOC: HO.HMGCX 11:35
PROVIDERS: PCP Internal Medicine; Visit Provider Physician Assistant
DX: R05.9 Cough, unspecified (principal)
CPT/HCPCS: 0241U; 71046; 99212

== ENCOUNTER 2024-02-18 08:37 | Outpatient (REF) | payer OTHER, SELFPAY ==
[2024-02-18 09:39] LABS: Anion Gap 12 (12-20); B Type Natriuretic Peptide 38 pg/mL (<100); Blood Urea Nitrogen 11 mg/dL (9-16); Calcium 10.1 mg/dL (8.4-10.2); Carbon Dioxide 25 mmol/L (22-29); Chloride 109 mmol/L (96-108); Cholesterol 121 mg/dL (<200); Estimated Glomerular Filt Rate 48; Glucose Random 169 mg/dL (60-115); HDL Cholesterol 36 mg/dL (>40); LDL Cholesterol Calculated 56 mg/dL (<100); Potassium 3.5 mmol/L (3.3-5.1); Sodium 142 mmol/L (135-145); Triglycerides 145 mg/dL (<150)
[2024-02-18 13:23] LABS: Appearance Urine Cloudy; Color Urine Yellow; Glucose Urine UA Negative (Negative); Leukocyte Esterase Urine Moderate (2+) (Negative); Nitrite Urine Negative (Negative); PH 5.5 (5.0-9.0); UMIC TRIGGER UACC YES; Urine Blood Trace (Negative); Urine Ketones Trace mg/dL (Negative); Urine Protein 300 (3+) mg/dL (Neg-Trace)
[2024-02-18 13:28] LABS: Bacteria Urine 4+ (None Seen); Hyaline Casts Urine 0-2 /LPF (0-2); UACC Culture Trigger YES; WBC Urine >50 /HPF (0-5)
== END 2024-02-18 08:38 | disposition home or self-care (01) ==
LOC: HO.LAB 08:37
PROVIDERS: PCP Internal Medicine; Visit Provider Nurse Practitioner
DX: J81.1 Chronic pulmonary edema (principal); Z95.1 Presence of aortocoronary bypass graft; R30.0 Dysuria
CPT/HCPCS: 36415; 80048; 80061; 81001; 83880; 87086; 87088; 87186

== ENCOUNTER 2024-03-04 10:13 | Outpatient (AMB) | payer MEDICARE, SELFPAY ==
[2024-03-04 10:34] VITALS: BP 146/76; PULSE 75; BMI 34.4
--- NOTE | 2024-03-04 10:34 | A.OFFVIS_ITS ---
Vital Signs 03/04/24 10:34 Height 5 ft 4 in Weight 200 lb 9.93 oz BMI 34.4 BP 146/76 H Blood Pressure Location Lt brachial Position Sitting Pulse 75 Intake Visit Reasons: 1 yr f/up Post Splitter Required: No Accompanied by: Self / Same As Patient Allergies No Known Allergies [No Known Allergies*] Allergy (Verified 12/21/23 11:12) Medication List - Last Reconciled 03/04/24 by Sujit Patterson MD amlodipine 5 mg PO DAILY aspirin 81 mg PO DAILY atorvastatin 80 mg PO DAILY blood sugar diagnostic (FreeStyle Lite Strips) As directed check the BS TID blood-glucose meter ([employer] Ultra2 Meter) As directed cholecalciferol (vitamin D3) 25 mcg PO DAILY flash glucose sensor (FreeStyle Kisha 2 Sensor kit) three times a day insulin aspart U-100 (Novolog FlexPen U-100 Insulin aspart) 8 - 36 units subcut TID insulin glargine 27 units subcut DAILY lisinopril 30 mg PO DAILY 90 days metformin 500 mg PO BID metoprolol succinate ER 25 mg PO BID 90 days pen needle, diabetic (1st Tier Unifine Pentips) As directed injection 4 times a day [Pull ups As directed] [PULL UPS Extra Large As directed] torsemide 20 mg PO DAILY HPI Comments Details: Lauren returns for follow-up regarding coronary disease and bypass surgery. In the past, she was seen for consultation regarding anginal-type symptoms. That led to cardiac catheterization and coronary bypass surgery. She has multiple vascular risk factors including type 2 diabetes, hypertension, dyslipidemia. Overall, no specific complaints. She states she feels good. She thinks she may be coming down with a cold, but otherwise no specific cardiac symptoms. [facility] Medical History (Updated 12/21/23 @ 18:18 by Ry Soriano MD) Pulmonary edema COVID-19 virus infection Obesity (BMI 30-39.9) Diabetic nephropathy Essential hypertension Lab test positive for detection of COVID-19 virus Toxic multinodular goiter Tubular adenoma of colon Coronary artery disease Hypercholesterolemia Type 2 diabetes mellitus with hyperglycemia Surgical History Hx of colonoscopy Status post coronary artery bypass graft History of coronary artery bypass graft x 3 (~09/17/19) History of cardiac catheterization (~09/16/19) History of total left knee replacement H/O umbilical hernia repair S/P lumpectomy, left breast Family History Father No problems noted. Mother No problems noted. Social History Housing: Apartment Alcohol intake: current Alcohol intake frequency: holidays/special occasions only Patient Tobacco Use Status: Former Tobacco user Tobacco use type: Cigarette Years Smoked: 1999 quit e-Cigarette/Vaping Use: Never Used Second Hand Smoke Exposure: No Advance Directives Date on File: 01/08/20 service: No Current occupational status: retired Cognitive needs: Yes (cane ) Hearing needs: No Vision needs: Yes (glasses) Review of Systems Const Denies chills, Denies fatigue, Denies fever(s), Denies weight gain and Denies weight loss ENT Denies dizziness Card Denies chest pain, Denies leg edema, Denies lightheadedness, Denies palpitations, Denies dyspnea on exertion, Denies orthopnea and Denies other Resp Denies cough and Denies dyspnea on exertion GI Denies hematochezia and Denies change in stool character Musc Denies abnormal gait, Denies muscle weakness, Denies numbness, Denies radiating pain into limb and Denies tingling Neuro Denies abnormal gait, Denies dizziness, Denies numbness and Denies tingling Endo Denies fatigue and Denies palpitations Physical Exam Vital Signs: Last Vital Signs Pulse 75 03/04/24 10:34 BP 146/76 H 03/04/24 10:34 BMI result Body Mass Index 34.4 Const General: comfortable and no acute distress Orientation/consciousness: patient oriented x3 HEENT Other: Unremarkable Head: Yes normal to inspection Neck Neck: Yes normal visual inspection Chest Chest palpation & inspection: normal inspection of the chest Resp Auscultation: clear to auscultation bilaterally Cardio Palpation: normal PMI Heart sounds: S1 normal heart sound present, S2 normal heart sound present, no gallops, no murmurs and no rubs GI Palpation (GI): Soft to palpation Back/Spine/Pelvis Other: unremarkable Skin General skin exam: no rashes or lesions noted Neuro General: patient oriented x3 Extrem General: Yes normal to inspection Psych Mental Status: mental status grossly normal Office Procedures EKG Details: EKG shows sinus rhythm at 75/Min; cannot exclude inferior infarct; lateral T inversions; nonspecific ST-T changes. [id number], Complete Assessment & Plan Assessment & Plan (1) Atherosclerotic cardiovascular disease: Code(s): I25.10 - Atherosclerotic heart disease of [place] coronary artery without angina pectoris Category: Medical Plan: Continue aspirin and statins. LDL cholesterol is in the 50s. (2) Status post coronary artery bypass graft: Code(s): Z95.1 - Presence of aortocoronary bypass graft Category: Surgical Plan: 09/2019. No recurrent issues. (3) Essential hypertension: Code(s): I10 - Essential (primary) hypertension Category: Medical Plan: Blood pressure is slightly high, but she states that it may be because of her coming down with a cold. We discussed about making some changes as the last blood pressure was also on the higher side, but she states she would not want any changes at this time. Currently on a combination of metoprolol, amlodipine, lisinopril. (4) Type 2 diabetes mellitus with complication: Code(s): E11.8 - Type 2 diabetes mellitus with unspecified complications Category: Medical Plan: She is on insulin and metformin. Last hemoglobin A1c is 7.3%. Could be better. Coding Level of Care Code Est Pt Level 4 (01424) Diagnoses Atherosclerotic cardiovascular disease I25.10 Status post coronary artery bypass graft Z95.1 Essential hypertension I10 Type 2 diabetes mellitus with complication E11.8 CPT Codes EKG - CPT: 41539-[id number], Complete ([id number])
== END 2024-03-04 10:56 | disposition home or self-care (01) ==
PROVIDERS: PCP Internal Medicine; Visit Provider Internal Medicine
DX: I25.10 Atherosclerotic heart disease of native coronary artery without angina pectoris (principal); Z95.1 Presence of aortocoronary bypass graft; I10 Essential (primary) hypertension; E11.8 Type 2 diabetes mellitus with unspecified complications
CPT/HCPCS: 93010; 99214

== ENCOUNTER → 2024-03-04 10:13 | Outpatient (BNVA) | payer MEDICARE, SELFPAY | PROVIDERS: PCP Internal Medicine; Visit Provider Internal Medicine | DX: I25.10 Atherosclerotic heart disease of native coronary artery without angina pectoris (principal); I10 Essential (primary) hypertension; E11.8 Type 2 diabetes mellitus with unspecified complications; Z95.1 Presence of aortocoronary bypass graft | CPT/HCPCS: 93005; 99212 ==

== ENCOUNTER 2024-04-11 12:32 | Outpatient (AMB) | payer OTHER, SELFPAY ==
[2024-04-11 12:34] VITALS: BP 124/82; PULSE 73; O2SAT 92; BMI 34.2
--- NOTE | 2024-04-11 12:34 | MHC.PC.OV ---
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 Accompanied by: Self / Same As Patient Allergies No Known Allergies [No Known Allergies*] Allergy (Verified 04/11/24 12:34) Medication List - Last Reconciled 04/11/24 by Ry Soriano MD amlodipine 5 mg PO DAILY aspirin 81 mg PO DAILY atorvastatin 80 mg PO DAILY blood sugar diagnostic (FreeStyle Lite Strips) As directed check the BS TID blood-glucose meter (Next Generation Danceuch Ultra2 Meter) As directed cholecalciferol (vitamin D3) 25 mcg PO DAILY flash glucose sensor (FreeStyle Kisha 2 Sensor kit) three times a day insulin aspart U-100 (Novolog FlexPen U-100 Insulin aspart) 8 - 36 units subcut TID insulin glargine 25 units subcut DAILY lisinopril 30 mg PO DAILY 90 days mecobalamin (vitamin B12) 1,000 mcg PO DAILY metformin 500 mg PO BID metoprolol succinate ER 25 mg PO BID 90 days pen needle, diabetic (1st Tier Unifine Pentips) As directed injection 4 times a day [Pull ups As directed] [PULL UPS Extra Large As directed] torsemide 20 mg PO DAILY Tobacco use date assessed: 04/11/24 Fall risk assessment: No Falls in past year Last assessed Fall Risk: 04/11/24 Dental Screening Dental Screen Date: 04/11/24 Did you have a dental visit in the last 12 months?: No Did you have a dental problem in the last 6 months where you did not have access to dental care?: No Was dental information given to patient?: No HPI Annual Exam HPI Details The patient is a 78-year-old female presenting with chronic knee pain. The patient reports persistent pain in the knee, which has affected her mobility and quality of life. The onset of knee pain was several years ago, and she describes it as worsening over time. Cortisone injections have been received, providing temporary relief for about three to four months, but significant issues persist. The patient has also tried Voltaren gel without experiencing relief. Her medical history includes hypertension, managed with amlodipine, lisinopril, metoprolol, and torsemide, and Type 2 Diabetes Mellitus, for which she uses insulin glargine, adjusted to 25 units, alongside vitamin B12 supplements for her deficiency. Recent lab tests indicated her blood glucose level at 7.5%. Additionally, she has been managing hyperlipidemia with a stable cholesterol profile. - Blood pressure: Maintained within a stable range with noted improvement. - COPD and Diabetes screenings: Good control with ongoing management. - Shingles vaccine: Completed. - Pneumonia vaccines: Both completed. - Influenza vaccine: Received for the current season. - Colonoscopy: Completed last year. - Cardiovascular risk factors: Addressed, with good cholesterol control and weight loss. - Encouraged ongoing lifestyle modifications including diet, exercise, and hydration. - Alcohol: Abstains, except a single beer on [employer]. - Tobacco: No current usage. - Family history: Significant alcohol use noted among siblings; both . - Mobility: Limited due to knee pain but remains engaged with activities. - Musculoskeletal: Reports knee pain. - Cardiovascular: Reports control over blood pressure with medication; previous mild elevation noted. - Endocrine: Reports persistent hyperglycemia; merits monitoring. - ENT: Denies hearing difficulty. - Respiratory: Denies shortness of breath. - Gastrointestinal: Denies nausea or vomiting. - Renal: Denies urinary issues when following fluid intake guidelines. - Labs: Cholesterol levels adequate. Blood sugar at 7.5%. - EKG: Not discussed, assumed within normal limits based on absence of report. FOR[facility]LY [facility], [facility] Medical History (Updated 12/21/23 @ 18:18 by Ry Soriano MD) Pulmonary edema COVID-19 virus infection Obesity (BMI 30-39.9) Diabetic nephropathy Essential hypertension Lab test positive for detection of COVID-19 virus Toxic multinodular goiter Tubular adenoma of colon Coronary artery disease Hypercholesterolemia Type 2 diabetes mellitus with hyperglycemia Surgical History Hx of colonoscopy Status post coronary artery bypass graft History of coronary artery bypass graft x 3 (~09/17/19) History of cardiac catheterization (~09/16/19) History of total left knee replacement H/O umbilical hernia repair S/P lumpectomy, left breast Family History Father No problems noted. Mother No problems noted. Social History (Updated 04/11/24 @ 12:48 by Ry Soriano MD) Housing: Apartment Alcohol intake: current Alcohol intake frequency: holidays/special occasions only Comment: beer Patient Tobacco Use Status: Former Tobacco user Tobacco use type: Cigarette Years Smoked: 1999 quit e-Cigarette/Vaping Use: Never Used Second Hand Smoke Exposure: No Advance Directives Date on File: 01/08/20 service: No Current occupational status: retired Cognitive needs: Yes (cane ) Hearing needs: No Vision needs: Yes (glasses) Questionnaire PHQ-9 Over the last 2 weeks, how often have you been bothered by any of the following problems? 1. Little interest or pleasure in doing things: not at all 2. Feeling down, depressed, or hopeless: not at all 3. Trouble falling or staying asleep, or sleeping too much: not at all 4. Feeling tired or having little energy: not at all 5. Poor appetite or overeating: not at all 6. Feeling bad about yourself - or that you are a failure or have let yourself or your family down: not at all 7. Trouble concentrating on things, such as reading the newspaper or watching television: not at all 8. Moving or speaking so slowly that other people could have noticed. Or the opposite - being so fidgety or restless that you have been moving around a lot more than usual: not at all 9. Thoughts that you would be better off or of hurting yourself in some way: not at all Total score: 0 Depression Screening Interpretation: Negative Depression Screening Done: Yes 00002 - PHQ-9 Billing: Yes Source: Developed by Drs. Reid Pena, Claribel Gomez, Randy Dukes and colleagues, with an educational bala from [employer]. Thrive Questionnaire Date Thrive assessed: 04/11/24 I am a: Patient What is your living situation today?: I choose not to answer this question Within the past 12 months, did the food you bought not last and you didn't have the money to get more?: I choose not to answer this question Within the past 12 months, did you worry whether your food would run out before you got money to buy more?: I choose not to answer this question Do you have trouble paying for medicines?: I choose not to answer this question Do you have trouble getting transportation to medical appointments?: I choose not to answer this question Do you have trouble paying your heating and electricity bill?: I choose not to answer this question Do you have trouble taking care of your child, family member or friend?: I choose not to answer this question Do you have trouble with day-to-day activities such as bathing, preparing meals, shopping, managing finances, etc.?: I choose not to answer this question Are you currently unemployed and looking for a job?: I choose not to answer this question Are you interested in more education?: I choose not to answer this question Please select the resources that you would like help with: None Currently or been in a relationship where the following occur: I choose not to answer THRIVE Score: 0 AUDIT C Alcohol Use Questionnaire (AUDIT-C) 1. How often do you have a drink containing alcohol?: Never Total Score: 0 ROSARIO-7 AMB Questionnaire ROSARIO-7 Date ROSARIO - 7 assessed: 04/11/24 Feeling nervous, anxious, or on edge: 0 = Not at all Not being able to stop or control worryin = Not at all Worrying too much about different things: 0 = Not at all Trouble relaxin = Not at all Being so restless that it is hard to sit still: 0 = Not at all Becoming easily annoyed or irritable: 0 = Not at all Feeling afraid as if something awful might happen: 0 = Not at all Total ROSARIO-7 score (0-4 normal; 5-9 mild; 10-14 moderate; 15-21 severe): 0 Source: Developed by Drs. Reid Pena, Claribel Gomez, Randy Dukes and colleagues, with an educational bala from [employer]. Review of Systems Const Denies poor appetite and Denies weakness Eyes Denies no additional complaints ENT Reports Normal hearing present, Denies dizziness, Denies nasal congestion, Denies tinnitus and Denies sore throat Card Denies chest pain, Denies syncope, Denies rapid heart rate and Denies dyspnea Resp Denies cough and Denies dyspnea GI Denies change in stool character, Reports constipation, Denies diarrhea, Denies nausea and Denies vomiting Denies urinary frequency, Denies difficulty voiding and Denies dysuria Neuro Reports Normal hearing present, Denies confusion, Denies dizziness, Denies syncope and Denies weakness Psych Denies confusion Physical exam (Primary Care) Vital Signs: Last Vital Signs Pulse 73 04/11/24 12:34 BP 124/82 04/11/24 12:34 Pulse Ox 92 04/11/24 12:34 Oxygen Delivery Method Room Air 04/11/24 12:34 BMI result Body Mass Index 34.2 Tobacco/Smoking Status: Tobacco use Status Tobacco use date assessed 04/11/24 04/11/24 12:37 Patient Tobacco Use Status Former Tobacco user 04/11/24 12:48 Tobacco use type Cigarette 04/11/24 12:48 e-Cigarette/Vaping Use Never Used 04/11/24 12:48 PHQ-9: PHQ-9 Score PHQ-9: Total score 0 04/11/24 12:43 Depression Screening Interpretation: Negative Thrive Assessment: Date of Thrive Assessment Date Thrive assessed 04/11/24 04/11/24 12:37 Currently or been in a relationship where the following occur: I choose not to answer Const General: No confusion Orientation/consciousness: No confusion HENMT Head: Yes normocephalic Ears: external ears normal and TM's normal bilaterally Face and sinus: Yes normal facial exam Mouth: moist mucous membranes Throat: Yes tonsils normal Eyes Conjunctivae: conjunctivae normal Pupils: Equal, round and reactive pupils present and Pupil accommodation reflex normal Direct Ophthalmoscopy: normal light reflex Neck Neck: No lymphadenopathy Thyroid: Thyroid normal Chest Chest palpation & inspection: normal inspection of the chest Resp Effort & Inspection: normal respiratory effort and no audible wheezes Auscultation: clear to auscultation bilaterally, no crackles, no wheezes and lung sounds not diminished Cardio Rate: regular rate Rhythm: regular rhythm Peripheral pulses: radial pulses present and dorsalis pedis present GI Other: declined Palpation (GI): no masses Auscultation: normal bowel sounds and normoactive bowel sounds Rectal Exam - Female: deferred Back/Spine/Pelvis Other: pedal pulse and pin prick good Skin General skin exam: no rashes or lesions noted Rashes: no rashes Neuro General: No confusion Cranial nerves: Yes Equal, round and reactive pupils present and Yes Normal hearing present Cognition (Neuro): normal cognition Gait exam (Neuro): Normal gait present Motor exam (neuro): 5/5 motor strength present throughout Deep tendon reflexes (DTR's): Right brachioradialis reflex intensity grade: 2+, Left brachioradialis reflex intensity grade: 2+, Right patellar reflex intensity grade: 2+ and Left patellar reflex intensity grade: 2+ Extrem General: No edema Coding Level of Care Code Est Pt Prev Care >65y(05404) Diagnoses Annual physical exam Z00.00 Type 2 diabetes mellitus with hyperglycemia, with long-term current use of insulin E11.65; Z79.4 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 Qualified Code(s): E11.65 - Type 2 diabetes mellitus with hyperglycemia; Z79.4 - nursing home (current) use of insulin (3) Hypercholesterolemia: Comment: March 2022 Code(s): E78.00 - Pure hypercholesterolemia, unspecified Category: Medical (4) Coronary artery disease: Comment: nuclear stress test positive September 2019 EF 60 % moderate a symmetrical septal hypertrophy, catheterization done and bypass September 2019 CABG x3 Code(s): I25.10 - Atherosclerotic heart disease of cab[place] coronary artery without angina pectoris Category: Medical Qualifiers: Associated angina: without angina Coronary Disease-Associated Artery/Lesion type: [place] artery [place] vs. transplanted heart: cab[place] heart Qualified Code(s): I25.10 - Atherosclerotic heart disease of cab[place] coronary artery without angina pectoris (5) Essential hypertension: Code(s): I10 - Essential (primary) hypertension Category: Medical (6) Obesity (BMI 30-39.9): Code(s): E66.9 - Obesity, unspecified Category: Medical Plan - Management of osteoarthritis with physical therapy and possible knee braces for support. - Continue current antihypertensive regimen. - Monitor and aim to improve glucose control, adjust insulin as necessary. - Vitamin supplementation continues. - Regular monitoring and lipid management. During our consultation, we reviewed the patient's extensive history of knee osteoarthritis and current management strategies. While cortisone injections provide temporary relief, alternative pain management strategies were discussed, including consideration of knee braces. We discussed the stability of hypertension and diabetes status, emphasizing the importance of continuous monitoring and appropriate medication adjustments. We also addressed preventive health measures, confirming vaccination status and screening test results. We concluded the session by reviewing lifestyle modifications as a prolongative measure, emphasizing dietary regulation, consistent exercise, and hydration. - Continue current medication regimen. - Use knee braces as advised to aid mobility. - Maintain dietary adjustments and monitor blood sugar levels closely. - Adhere to routine follow-up appointments for ongoing assessment. - Stay updated with vaccinations and annual screenings. - Maintain exercise routine, focus on low-impact activities to manage knee pain.
--- OUTSIDE RECORDS SUMMARY | 2024-04-11 12:36 | XMS_ITS ---
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 Name Role Phone Ry Soriano Primary Care Provider UnavailClive nAgulo Unavailable [phone] Allergies Allergen (clinical drug ingredient) Drug/Non Drug Allergy documented on EMR Reaction Allergy Type Onset Date Status Adhesive per pt no allergy Allergy Active REASON FOR VISIT At Risk Footcare, Painful Nail(s) aggravated by shoes and causing difficulty standing/walking, Wart(s), Toe Irritation Medications Medication SIG (Take, Route, Frequency, Duration) Notes Start Date End Date Status Atorvastatin Calcium 80 MG 1 tablet Oral ly Once a day for 30 day(s) Active methIMAzole 5 MG 1 tablet Orally Once a day for 30 day(s) Active Metoprolol Succinate 25 MG 1 capsule Ora lly Once a day for 30 day(s) Active Torsemide 20 MG as directed Orally Active Lisinopril 30 MG 1 tablet Orally Once a day for 30 day(s) Active Vitamin D3 Active Extra Depth Orthopedic Shoes, (1) Pair With (3) Pair Custom Heat Molded Multidensity Innersoles Dx: NIDDM/PVD(E11.51), Hammertoe Foot Deformity(M20.41,M20.42), Preulcerative Skin Lesion(s)(L85.1) Wear Daily for 365 days 03/05/2024 Active amLODIPine Besylate 5 MG 1 tablet Orally Once a day for 30 day(s) Active metFORMIN HCl 500 MG 1 tablet with a linda l Orally Once a day for 30 day(s) Active Aspir-81 Active Social History Tobacco Use: Social History Observation Description Date Details (start date - stop date) Former Smoker NA - NA Tobacco Use/Smoking Question Answer Notes Are you a: former smoker Alcohol Screen Question Answer Notes Did you have a drink containing alcohol in the p ast year? No Points 0 Interpretation Negative Tobacco use other than smoking: Question Answer Notes Are you an other tobacco user? No Problems Problem Type SNOMED Code ICD Code Onset Dates Problem Status W/U Status Risk Notes Problem Type 2 diabetes mellitus with peripheral angiopathy (123108645) Type 2 diabetes mellitus with diabetic peripheral angiopathy without gangrene (E11.51) Active confirmed Q7(A), Q8(2B), Q9(1B,2C) Problem Plantar wart (02907953) Plantar wart (B07.0) Active confirmed Problem Acquired hammer toe of right foot (6953414139954 105) Other hammer toe(s) (acquired), right foot (M20.41) Active confirmed Problem Acquired hammer toe of left foot (4120189186090 103) Other hammer toe(s) (acquired), left foot (M20.42) Active confirmed Vital Signs Height 5ft 5in in 03/05/2024 Weight 200 lbs 03/05/2024 BMI 33.28 kg/m2 03/05/2024 Procedures Procedure Date Ordered Date Performed Result Body Sit e 72954-FGBGONE NAIL, 6 OR MORE 03/05/2024 N/A 45547-Nmqi Destruction, 1-14 03/05/2024 N/A 90147-QVHJ SKIN LESIONS, OVER 4 03/05/2024 N/A Encounters Encounter Location Date Provider Diagnosis [facility] [place] [address] [address] 03/05/2024 Clive Vilchis Type 2 diabetes mellitus with diabetic peripheral angiopathy without gangrene E11.51 ; Plantar wart B07.0 ; Tinea unguium B35.1 ; Pain in right toe(s) M79.674 ; Pain in left toe(s) M79.675 ; Right foot pain M79.671 ; Other hammer toe(s) (acquired), right foot M20.41 and Other hammer toe(s) (acquired), left foot M20.42 Assessments Encounter Date Diagnosis (ICD Code) Assessment Notes Treatment Notes Treatment Clinical Notes Section Notes 03/05/2024 Type 2 diabetes mellitus with diabetic peripheral angiopathy without gangrene (ICD-10 - E11.51) Q7(A), Q8(2B), Q9(1B,2C) 03/05/2024 Plantar wart (ICD-10 - B07.0) 03/05/2024 Tinea unguium (ICD-10 - B35.1) 03/05/2024 Pain in right toe(s) (ICD-10 - M79.674) 03/05/2024 Pain in left toe(s) (ICD-10 - M79.675) 03/05/2024 Right foot pain (ICD-10 - M79.671) 03/05/2024 Other hammer toe(s) (acquired), right foot (ICD-10 - M20.41) Patient Educated with: DIABETIC FOOT CARE INSTRUCTIONS.p df (DIABETIC FOOT CARE INSTRUCTIONS.p df) 03/05/2024 Other hammer toe(s) (acquired), left foot (ICD-10 - M20.42) Plan Of Treatment Medication Medication Name Sig Start Date Stop Date Notes Extra Depth Orthopedic Shoes , (1) Pair With (3) Pair Custom Heat Molded Multidensity Innersoles Dx: NIDDM/PVD(E11.51), Hammertoe Foot Deformity(M20.41,M20.42), Preulcerative Skin Lesion(s)(L85.1) Wear Daily for 365 days 03/05/2024 Treatment Notes Assessment Notes Other hammer toe(s) (acquired), right fo ot Patient Educated with: DIABETIC FOOT CARE INSTRUCTIONS.pdf (DIABETIC FOOT CARE INSTRUCTIONS.pdf) Pending Test Test Name Order Date 64022-BCUUDUZ NAIL, 6 OR MORE 03/05/2024 97661-Bejk Destruction, 1-14 03/05/2024 16498-[facility] SKIN LESIONS, OVER 4 03/05/20 24 Next Appt Details Follow Up: 2 Months, Reason: Provider Name:Clive Vilchis , 06/02/2024 10:00:00 AM, [address], [place], [address], Procedure Notes * Category Sub-Category Detail Notes Wart Treatment Procedure Verruca, as desc ribed in exam, were debrided to pin-point bleeding margins with sterile 15 surgical blade, silver nitrate chemocautery applied, recomm. immune-boosting meds such as zinc, recomm. follow up with topical chemosurgical agents, Pt defers any other forms of tx - 23581 Debride Nail 6-10 Nail debridement Performance o f this nail treatment by a nonprofessional would put this patients foot and overall health at risk. Therefore, debridement to affected nail(s), as described in exam, was performed extensively to reduce/remove overall nail length, girth, thickness, subungual debris, and necrotic tissue, by manual and/or electrical means through the use of a nail nipper and/or dremel-type grinder set up operator universal, to a more viable healthy nail plate or bed tissue 6-10 nails in total. Silver nitrate was used for any petechial bleeding as necessary. Definitive antifungal treatment options, both pharmaceutical and surgical, have been reviewed and discussed with the patient. The patient solely prefers the use of intermittent/as needed professional debridement services for their nail condition and understands the need for additional periodic treatments to maintain effectiveness in symptomatic relief - 19563 Keratoma Treatment Parring or Cutting o f Benign Hyperkeratotic Lesion(s) (-57) More than 4 Lesions - The Benign hyperkeratotic lesions, ( 8) in total, locations as stated and described in exam, were pared, and/or cut utilizing a sterile 15 blade, tissue nippers, and/or power dremel instrumentation - 70697, Q8 Progress Notes * Lauren CROWLEY BDOB:1945 ( 78 yo F)Acc No.[id number]:03/05/2024 Progress Note Patient:?Lauren CROWLEY Catarino Provider:?Clive Vilchis DPM :1945???Age:78 Y???Sex:Female D ate:03/05/2024 Address:[address] [place], [place] [id number] Pcp:Ry Soriano Subjective: * Chief Complaints: * ???At Risk FootcarePainful N ail(s) aggravated by shoes and causing difficulty standing/walkingWart(s)Toe Irritation * HPI: ???At Risk footcare:?Pt States Last PCP Visit:?Date?02/13/2024 ???Toe pain:?Location:?B/L feet.?Duration:?several years.?Course:?worse.?Aggravated by:?shoes, any pressure.?Treatments:?change in shoes.? * ROS:?General/Constitutional:?Nausea?denies.?Vomiting?denies.?Hunger Thirst?denies.?Loss appetite?denies.?Chills?denies.?Fatigue?denies.?Fever?denies.?Night Sweats?denies.?Unexplained weight loss?denies.?Unexplained weight gain?denies.?HEENTM:?Dentures?denies.?Dizziness?denies.?Glasses/contacts?admits.?Retinopathy?de nies.?Blurred/double vision?denies.?TMJ?denies.?Discharge/drainage?denies.?Implants?denies.?Sore throat?denies.?Dental implants?denies.?Hard of hearing ?denies.?Difficulty chewing/swallowing/speaking?denies.?Nose bleeds?denies.?Sore mouth?denies.?Respiratory:?On Oxygen?denies.?Pneumonia/pleurisy?denies.?Bronchitis?denies.?Emphysema?denies.?C oughing?denies.?Cough blood?denies.?Shortness of breath?denies.?Wheezing?denies.?Cardiovascular:?Pacemaker?denies.?MVP?denies.?WPW?denies.?CHF?denies.?Heart attack?denies.?Septal defect?denies.?Rapid beat?denies.?Chest pain ?denies.?Atrial Fib.?denies.?Murmur/Palpitations?denies.?Gastrointestinal:?Hemorrhoids?denies.?Stomach/Abdominal pain?denies.?Dark blood stool?denies.?Irritable bowel ?denies.?Constipation?denies.?Diarrhea?denies.?Hematology:?Swelling?denies.?Clots?denies.?Varicose Veins?denies.?Bruising?denies.?Bleeding problem?denies.?Genitourinary:?Blood urine?denies.?Frequent/Painfu/urination/bladder control?denies.?Kidney stones?denies.?Infection (UTI)?denies.?Nephropathy?denies.?sex trans dis (STD)?denies.?Prostate?denies.?Musculoskeletal:?Hammertoes?admits.?Bunions?denies.?Back Pain?denies.?Muscle Cramps/ Resting?denies.?Muscle cramps / walking?denies.?Generalized aches and pains?denies.?Weakness?denies.?Integ.:?Rodgers?denies.?Scars?denies.?Corns/calluses?admits.?Ingrown nails?admits.?Painful nails?admits.?Open Sores?denies.?Rashes?denies.?Neurologic:?Difficulty sleeping?denies.?Brain disorder?denies.?Numbness?denies.?Balance trouble?denies.?Confusion?denies.?Fainting/blackouts?denies.?Tingling?denies.?Tr emors?denies.? * Medical History:? * Surgical History:?triple byp ass 2020knee replacement hysterectomy 2022 * Hospitalization/Major Diagno stic Procedure:?No Hospitalization History. * Family History:?Mother: dece ased, diagnosed with Unspecified essential hypertension.?Father: , foot problems, diagnosed with Unspecified cerebral artery occlusion with cerebral infarction.?Siblings: kidney/liver disease, diagnosed with Other malignant neoplasm of unspecified site, Diabetic - NIDDM, Unspecified cerebral artery occlusion with cerebral infarction.? * Social History:?Tobacco Use:?Tobacco Use/Smoking?Are you a:?former smoker ?Tobacco use other than smoking?Are you an other tobacco user??No ???Drugs/Alcohol:?Drugs?Have you used drugs other than those for medical reasons in the past 12 months??No ?Alcohol Screen?Did you have a drink containing alcohol in the past year??No ?Points?0 ?Interpretation?Negative ???Miscellaneous:?Caffeine: yes. ?Children: yes. ?Exercise: no. ?Marital status: . ?Occupation: Retired. * Medications:?TakingVitamin D 3 Aspir-81 Lisinopril 30 MG Tablet 1 tablet Orally Once a day Metoprolol Succinate 25 MG Capsule ER 24 Hour Sprinkle 1 capsule Orally Once a day Torsemide 20 MG Tablet as directed Orally Atorvastatin Calcium 80 MG Tablet 1 tablet Orally Once a day methIMAzole 5 MG Tablet 1 tablet Orally Once a day amLODIPine Besylate 5 MG Tablet 1 tablet Orally Once a day metFORMIN HCl 500 MG Tablet 1 tablet with a meal Orally Once a day Medication List reviewed and reconciled with the patientTaking Vitamin D3 Taking -81 Taking Lisinopril 30 MG Tablet 1 tablet Orally Once a day Taking Metoprolol Succinate 25 MG Capsule ER 24 Hour Sprinkle 1 capsule Orally Once a day Taking Torsemide 20 MG Tablet as directed Orally Taking Atorvastatin Calcium 80 MG Tablet 1 tablet Orally Once a day Taking methIMAzole 5 MG Tablet 1 tablet Orally Once a day Taking amLODIPine Besylate 5 MG Tablet 1 tablet Orally Once a day Taking metFORMIN HCl 500 MG Tablet 1 tablet with a meal Orally Once a day Medication List reviewed and reconciled with the patient * Allergies:?Adhesive: per pt no allergyyes[Allergies Verified] Objective: * Vitals:?Ht: 5ft 5in, Wt: 200 , BMI: 33.28, Shoe size: 11, BS: 200, Wt-k.72 kg. * ???Past Orders: ???Lab:HEMOGLOBIN A1C (GLYCO HEMOGLOBIN) (Order Date - 06/15/2023) (Collection Date & Time - 05/03/2023) ? Value Reference Range ?HEMOGLOBIN A1C (HH) 7.0 * Examination: ???Vascular: ?DP PULSES(B):? 0/4, B/L.?PT PULSES(B):? 0/4, B/L.?CAPILLARY FILL TIME:? delayed, all digits, B/L.?TROPHIC CONDITION-TEXTURE/ELASTICITY/TURGOR/HAIR GROWTH(B):? decreased, fragile, thin, shiny, with sparse to absent hair growth, B/L.?TEMPERTURE GRADIENT(C):? decreased, cool to cool, proximal to distal, B/L.?PIGMENTATION:?mottled, B/L.?EDEMA(C):?absent, B/L.?CLAUDICATION(C):?denies, B/L.?REST PAIN:?denies, B/L.?PARESTHESIA(C):?absent, B/L.?BURNING(C):?absent, B/L.?Nails: ?NAILS are:?Elongated, overgrown, dystrophic, lytic, greater than 3mm thick, discolored and friable with crumbly malodorous subungual debris, with pain on palpation, 1-5 B/L.?Dermatologic: ?SKIN FINDINGS:?Skin exam reveals Keratotic lesion(s) located at, Plantar, IPJ, TA, Plantar, IPJ, T5, SUB MTH (s), 1, B/L, SUB MTH (s), 5, B/L, Plantar Heel(s), B/L.?VERRUCA:?Reveals Multiple ( 2), multi-loculated , mosaic-patterned, round, raised, flat-topped, petechial bleeding papule(s), with cauliflower appearance and interruption of skin lines, with pain to lateral compression, and size estimated at 2-3mm diameter, each,?plantar Forefoot, RIGHT.?Orthopedic: ?MUSCLE STRENGTH:?5/5 all groups in a symmetrical fashion, B/L.?GAIT ABNORMALITY:?Pronated, apropulsive, cane-assisted.?FOOT MORPHOLOGY:?Pes Planus structure, (-) Charcot collapse/destruction noted at MTJ.?DIGITAL DEFORMITIES:?Digital contracture, PIPJ, 2-5 B/L, incompl-reducible to push-up test, no over, nor underlapping,?there is?evidence of shoe producing skin irritation.?FOOTWEAR:?worn, non-supportive, shoe gear properties exacerbate patient's foot/toe deformity.?Neurological: ?SENSORY:?Neurological exam reveals intact sensorium, pain sensation normal, vibration sensation intact, pinprick sensation is normal in the lower extremities, 5.07 monofilament test performed at plantar aspects of 5 varied sites per foot shows sensation, normal, B/L, Pt denies, anesthesia, burning, paresthesia, tingling, B/L.?Ophthalmology Referral: ?DIABETES EYE EXAM?General Examination: ?GENERAL APPEARANCE:?Reveals a pleasant, alert, well nourished, well- developed, well hydrated individual, who demonstrates proper attention to hygiene/body habitus, and is in no acute distress, Pt serves as own historian for office visit today.?ORIENTED:?person, place, and time.?FOOT EXAM:?Footwear Evaluation? Assessment: * Assessment: 1.?Type 2 diabetes mellitus with diabetic peripheral angiopathy without gangrene - E11.51???Notes :Q7(A), Q8(2B), Q9(1B,2C)???2.?Plantar wart - B07.0 (Primary)???Specify :RIGHT???3.?Tinea unguium - B35.1???4.?Pain in right toe(s) - M79.674???5.?Pain in left toe(s) - M79.675???6.?Right foot pain - M79.671???7.?Other hammer toe(s) (acquired), right foot - M20.41???Specify :Chronic problem, Worse (4),Rx Management (4)???8.?Other hammer toe(s) (acquired), left foot - M20.42???Specify :Chronic problem, Worse (4),Rx Management (4)??? Plan: * Treatment: 2.?Type 2 diabetes mellitus with diabetic peripheral angiopathy without gangrene?Procedure: 45808-UWMS SKIN LESIONS, OVER 4 3.?Tinea unguium?Procedure: 33023-OPIQJED NAIL, 6 OR MORE 4.?Other hammer toe(s) (acqu ired), right foot? Start Extra Depth Orthopedic Shoes, (1) Pair ., With (3) Pair Custom Heat Molded Multidensity Innersoles, Dx: NIDDM/PVD(E11.51), Hammertoe Foot Deformity(M20.41,M20.42), Preulcerative Skin Lesion(s)(L85.1), Wear, Daily, 365 days, 2, Refills 0.?? Notes: Patient Educated with: DIABETIC FOOT CARE INSTRUCTIONS.pdf (DIABETIC FOOT CARE INSTRUCTIONS.pdf)?? * Procedures:?Debride Nail 6-10:?Nail debridement?Performance of this nail treatment by a nonprofessional would put this patients foot and overall health at risk. Therefore, debridement to affected nail(s), as described in exam, was performed extensively to reduce/remove overall nail length, girth, thickness, subungual debris, and necrotic tissue, by manual and/or electrical means through the use of a nail nipper and/or dremel-type grinder set up operator universal, to a more viable healthy nail plate or bed tissue 6-10 nails in total. Silver nitrate was used for any petechial bleeding as necessary. Definitive antifungal treatment options, both pharmaceutical and surgical, have been reviewed and discussed with the patient. The patient solely prefers the use of intermittent/as needed professional debridement services for their nail condition and understands the need for additional periodic treatments to maintain effectiveness in symptomatic relief - 81125.?Keratoma Treatment:?Parring or Cutting of Benign Hyperkeratotic Lesion(s)?(-57) More than 4 Lesions - The Benign hyperkeratotic lesions, ( 8) in total, locations as stated and described in exam, were pared, and/or cut utilizing a sterile 15 blade, tissue nippers, and/or power dremel instrumentation - 07094, Q8.?Wart Treatment:?Procedure?Verruca, as described in exam, were debrided to pin-point bleeding margins with sterile 15 surgical blade, silver nitrate chemocautery applied, recomm. immune-boosting meds such as zinc, recomm. follow up with topical chemosurgical agents, Pt defers any other forms of tx - 70129.? * Procedure Codes:?13169 DEBRI DE NAIL, 6 OR MORE, Modifiers: XS 42109 Wart Destruction, 1-14, Modifiers: XS 21556 TRIM SKIN LESIONS, OVER 4, Modifiers: XS , Q8 * Preventive Medicine:? ??Counseling:?Discussion:?-14: Office or other outpatient visit for the evaluation and management of an established patient, which required a medically appropriate history and/or examination and MODERATE level of DECISION MAKING for: 1 OR MORE CHRONIC PROBLEM(S) THATS WORSENING, 2 STABLE CHRONIC PROBLEMS, A NEWLY DIAGNOSED PROBLEM WITH UNCERTAIN PROGNOSIS, AN ACUTE COMPLICATED INJURY WITH MULTIPLE TREATMENT OPTIONS, OR AN ACUTE PROBLEM WITH ACCOMPANYING SYSTEMIC SYMPTOMS, THAT POSE(S) A MODERATE RISK OF MORBIDITY. THIS CONDITION MAY ALSO INCLUDE RX DRUG MANAGEMENT, OR A DECISON FOR MINOR SURGERY. The visit on the day of the encounter encompassed interpreting the data and educating the patient as to the nature of their condition, treatment options available according to their individual PMH, meds, allergies, and overall health/living conditions, as well as any potential risks or complications that may occur from a failure to adhere to, and participate in, the recommended course of therapy. The discussion included a complete verbal, and/or written explanation of the examination results, any x-rays taken, the proposed diagnosis, and outline of the treatment plan. A schedule for future care needs was also explained. The patient verbalized an understanding of the instructions at this time and agreed to be an active participant in their treatment. If the patient should think of any questions or concerns after the visit, I have encouraged the patient to call the office.?Digital Surgery:?Digital surgery was discussed with the patient, We elected to try conservative treatment at the present time, due to the patients medical history and increased asssociated post-operative risks.?Digital Treatment:?HT- I explained to the patient the possible etiologies of Hammertoes, including genetics/foot type/shoegear/activity level/exercise routine and the risks/benefits of all the different treatment options for their pain including: No treatment at all, Rest, Ice, New/supportive/wider/deeper Shoegear, Digital Padding/Strapping/Taping/Bracing/Gel protective sleeves, Foot/Ankle AFO Bracing, Stretching exercises, Deep Tissue Massage, Arch support/shoe inserts with splay metatarsal padding, and Custom orthoses. I insisted that any digital devices be removed daily and not worn overnight for safety. The patient is to carefully examine the toes daily for any skin irritation while using any splinting or padding device. The advantages and disadvantages of each option were discussed and the patients questions re: shoegear, padding, custom vs prefabricated inserts, activity level, and consistency in home treatment regimens for optimal success were answered to their verbally confirmed satisfaction.?Shoe Gear Counseling:?SHOE Rx - The patient was counseled in great detail on their muscoloskeletal foot and toe deformities which coincided with the dermatological presentations visualized on exam. We discussed how their deformities put the integrity of their feet at risk for potential pedal complications which makes the accomidative diabetic shoes and cutomizable inserts medically necessary. We discussed the different shoe and insert treatment types and options, as well as the important advantages for adhering to regularly wearing these accomidative devices daily. The patient was made aware of the fact that a failure to abide by these recommedations may be deleterious to their foot health as they are able to prevent many pedal complications such as skin irritation, skin ulceration, infection, and even loss of toe/foot/leg/or life. Time was also spent with the patient dispensing and discussing proper diabetic footcare techniques including daily skin moisturization, daily foot inspection for any interruption in skin integrity including open lesions, or sign of infection such as redness/malodor/drainage/swelling. Also discussed and recommended were procedures regarding daily shoe inspection for the presence of internal foreign bodies as well as any visualized irregular shoe or insert wear. Patient questions re: shoes, inserts, and self foot inspections were answered to their satisfaction as the patient verbally confirmed a full understanding of the above information. A Rx for Extra Depth Orthopedic Shoes with 3 pair of custom heat-molded inserts was dispensed.? * Follow Up:?2 Months * Images: * Sign off status: Completed true * Provider:?Clive Vilchis DPM Date:?2023 Generated for Ollie lea/Neida/Cammy on:?04/11/2024 12:36 PM EST History and Physical Notes * HPI (History of Present Illness) Category Sub-Category Detail Notes Category Not es Toe pain Location: B/L feet Duration: several years Course: worse Aggravated by: shoes, any pressure Treatments: change in shoes At Risk footcare Pt States Last PCP Visit: Date: 4 Examination Category Sub-Category Detail Notes Category Not es Neurological SENSORY: Neurological exa m reveals intact sensorium, pain sensation normal, vibration sensation intact, pinprick sensation is normal in the lower extremities, 5.07 monofilament test performed at plantar aspects of 5 varied sites per foot shows sensation, normal, B/L, Pt denies, anesthesia, burning, paresthesia, tingling, B/L Dermatologic SKIN FINDINGS: Skin exam reveal s Keratotic lesion(s) located at, Plantar, IPJ, TA, Plantar, IPJ, T5, SUB MTH (s), 1, B/L, SUB MTH (s), 5, B/L, Plantar Heel(s), B/L VERRUCA: Reveals Multiple ( 2 ), multi-loculated , mosaic-patterned, round, raised, flat-topped, petechial bleeding papule(s), with cauliflower appearance and interruption of skin lines, with pain to lateral compression, and size estimated at 2-3mm diameter, each, plantar Forefoot, RIGHT Orthopedic GAIT ABNORMALITY: Pronated, apropulsive, cane-assisted FOOT MORPHOLOGY: Pes Planus structure , (-) Charcot collapse/destruction noted at MTJ FOOTWEAR: worn, non-supportive , shoe gear properties exacerbate patient's foot/toe deformity DIGITAL DEFORMITIES: Digital contracture , PIPJ, 2-5 B/L, incompl-reducible to push-up test, no over, nor underlapping, there is evidence of shoe producing skin irritation MUSCLE STRENGTH: 5/5 all groups in a symmetrical fashion, B/L General Examination GENERAL APPEARANCE: Reveals a pleasant, alert, well nourished, well-developed, well hydrated individual, who demonstrates proper attention to hygiene/body habitus, and is in no acute distress, Pt serves as own historian for office visit today FOOT EXAM: Lower Extremity Neurological Exa m performed:: Yes ORIENTED: person, place, and t yoshi Footwear Evaluation Footwear Evaluation performe d:: Yes Ophthalmology Referral DIABETES EYE EXAM Diabetic Retinopa thy Screening:: Yes Retinal Screening Performed:: Yes Findings of Diabetic Eye Exam:: no retin opathy Vascular DP PULSES (B): 0/4, B/L PT PULSES (B): 0/4, B/L CAPILLARY FILL TIME: delayed, all digits , B/L TEMPERTURE GRADIENT (C): decreased, cool to cool, proximal to distal, B/L TROPHIC CONDITION-TEXTURE/ELASTICITY/TURGOR/HAIR GROWTH (B): decreased, fragile, thin, shiny, with sp arse to absent hair growth, B/L EDEMA (C): absent, B/L CLAUDICATION (C): denies, B/L REST PAIN: denies, B/L PIGMENTATION: mottled, B/L PARESTHESIA (C): absent, B/L BURNING (C): absent, B/L Nails NAILS are: Elongated, overg rown, dystrophic, lytic, greater than 3mm thick, discolored and friable with crumbly malodorous subungual debris, with pain on palpation, 1-5 B/L
--- OUTSIDE RECORDS SUMMARY | 2024-04-11 12:36 | XMS_ITS ---
Author Organization [facility] Address [address] [facility] [place] [address] Care Team Providers Care Tour Guide Name Role Phone Ry Soriano Primary Care Provider UnavailClive Angulo Unavailable [phone] Enzo Jeffers Unavailable [phone] Allergies Allergen (clinical drug ingredient) Drug/Non Drug Allergy documented on EMR Reaction Allergy Type Onset Date Status Adhesive breakout Allergy Active REASON FOR VISIT Painful nail(s) aggrevated by shoes and causing difficulty standing/walking., Wart(s) Medications Medication SIG (Take, Route, Frequency, Duration) Notes Start Date End Date Status metFORMIN HCl 500 MG 1 tablet with a linda l Orally Once a day for 30 day(s) Active Atorvastatin Calcium 80 MG 1 tablet Oral ly Once a day for 30 day(s) Active Torsemide 20 MG as directed Orally Active amLODIPine Besylate 5 MG 1 tablet Orally Once a day for 30 day(s) Active methIMAzole 5 MG 1 tablet Orally Once a day for 30 day(s) Active Aspir-81 Active Vitamin D3 Active Metoprolol Succinate 25 MG 1 capsule Ora lly Once a day for 30 day(s) Active Lisinopril 30 MG 1 tablet Orally Once a day for 30 day(s) Active Extra Depth Diabetic Shoes with 3 Pair Custom heat-molded multi-density innersoles for 1 year Dx: Active Social History Tobacco Use: Social History Observation Description Date Details (start date - stop date) Former Smoker NA - NA Tobacco Use/Smoking Question Answer Notes Are you a: former smoker Tobacco use other than smoking: Question Answer Notes Are you an other tobacco user? No Vital Signs Height 5ft 5in in 12/07/2023 Weight 200 lbs 12/07/2023 BMI 33.28 kg/m2 12/07/2023 Encounters Encounter Location Date Provider Diagnosis [facility] [place] [address] [place] [id number] 12/07/2023 Enzo Jeffers Type 2 diabetes mellitus with diabetic polyneuropathy E11.42 ; Pain in right toe(s) M79.674 ; Pain in left toe(s) M79.675 ; Tinea unguium B35.1 ; Other viral warts B07.8 ; Pain in left foot M79.672 and Pain in right foot M79.671 Assessments Encounter Date Diagnosis (ICD Code) Assessment Notes Treatment Notes Treatment Clinical Notes Section Notes 12/07/2023 Type 2 diabetes mellitus with diabetic polyneuropathy (ICD-10 - E11.42) 12/07/2023 Pain in right toe(s) (ICD-10 - M79.674) 12/07/2023 Pain in left toe(s) (ICD-10 - M79.675) 12/07/2023 Tinea unguium (ICD-10 - B35.1) 12/07/2023 Other viral warts (ICD-10 - B07.8) 12/07/2023 Pain in left foot (ICD-10 - M79.672) 12/07/2023 Pain in right foot (ICD-10 - M79.671) Plan Of Treatment Medication Medication Name Sig Start Date Stop Date Notes Extra Depth Diabetic Shoes w ith 3 Pair Custom heat-molded multi-density innersoles for 1 year Dx: Next Appt Details Follow Up: 2 Months, 3 Month s, Reason: Provider Name:Clive Vilchis , 06/02/2024 10:00:00 AM, [address] [facility], [place] [address], [place], [address], Procedure Notes * Category Sub-Category Detail Notes Wart Treatment Procedure Verrucae(s) were debrided to pin-point bleeding margins with sterile surgical blade (00047), silver nitrate chemocautery applied, DIABETES: Any more invasive procedure to wart deferred due to diabetes risk Debride Nail 6-10 Nail debridement Nail debridem ent performed extensively to reduce/remove overall nail length and girth, subungual debris, and necrotic tissue, by manual and electrical means with use of a nail nipper and/or dremel, to more viable healthy nail plate or bed tissue 6-10. Silver nitrate used for any petechial bleeding as necessary. Patient chooses, no pharmaceutical tx (79095) Keratoma Treatment Parring or Cutting o f Benign Hyperkeratotic Lesion(s) 55767 ( 2-4 Lesions ) - The Benign hyperkeratotic lesions, as described above were pared, and/or cut utilizing a sterile 15 blade, tissue nippers, and/or dremel Progress Notes * Lauren CROWLEY BDOB:1945 ( 78 yo F)Acc No.[id number]:12/07/2023 Progress Note Patient:?Lauren Crowley Provider:?Enzo Jeffers DPM :1945???Age:78 Y???Sex:Female D ate:12/07/2023 Address:[address] [place], [place] [id number] Pcp:Ry Soriano Subjective: * Chief Complaints: * ??? Painful nail(s) aggrevat ed by shoes and causing difficulty standing/walking.Wart(s) * HPI: ???At Risk footcare:?Pt States Last PCP Visit:?Date?10/01/2023 ???Foot Pain:?Nature:?sharp.?Location?Outside, Forefoot, Right .?Duration:?several years.?Onset/Cause:?unknown, denies trauma.?Course:?intermittent.?Aggrevated:?any pressure, standing, walking.?Treatments:?change in shoes, previous tx with Dr. Wilson?Quality/Severity?severe.? * ROS:?General/Constitutional:?Nausea?denies.?Vomiting?denies.?Hunger Thirst?denies.?Loss appetite?denies.?Chills?denies.?Fatigue?denies.?Fever?denies.?Night Sweats?denies.?Unexplained weight loss?denies.?Unexplained weight gain?denies.?HEENTM:?Dentures?denies.?Dizziness?denies.?Glasses/contacts?admits.?Retinopathy?de nies.?Blurred/double vision?denies.?TMJ?denies.?Discharge/drainage?denies.?Implants?denies.?Sore throat?denies.?Dental implants?denies.?Hard of hearing ?denies.?Difficulty chewing/swallowing/speaking?denies.?Nose bleeds?denies.?Sore mouth?denies.?Respiratory:?On Oxygen?denies.?Pneumonia/pleurisy?denies.?Bronchitis?denies.?Emphysema?denies.?C oughing?denies.?Cough blood?denies.?Shortness of breath?denies.?Wheezing?denies.?Cardiovascular:?Pacemaker?denies.?MVP?denies.?WPW?denies.?CHF?denies.?Heart attack?denies.?Septal defect?denies.?Rapid beat?denies.?Chest pain ?denies.?Atrial Fib.?denies.?Murmur/Palpitations?denies.?Gastrointestinal:?Hemorrhoids?denies.?Stomach/Abdominal pain?denies.?Dark blood stool?denies.?Irritable bowel ?denies.?Constipation?denies.?Diarrhea?denies.?Hematology:?Swelling?denies.?Clots?denies.?Varicose Veins?denies.?Bruising?denies.?Bleeding problem?denies.?Genitourinary:?Blood urine?denies.?Frequent/Painfu/urination/bladder control?denies.?Kidney stones?denies.?Infection (UTI)?denies.?Nephropathy?denies.?sex trans dis (STD)?denies.?Prostate?denies.?Musculoskeletal:?Hammertoes?denies.?Bunions?denies.?Back Pain?denies.?Muscle Cramps/ Resting?denies.?Muscle cramps / walking?denies.?Generalized aches and pains?denies.?Weakness?denies.?Integ.:?Rodgers?denies.?Scars?denies.?Corns/calluses?denies.?Ingrown nails?denies.?Painful nails?denies.?Open Sores?denies.?Rashes?denies.?Neurologic:?Difficulty sleeping?denies.?Brain disorder?denies.?Numbness?denies.?Balance trouble?denies.?Confusion?denies.?Fainting/blackouts?denies.?Tingling?denies.?Tr emors?denies.? * Medical History:? * Surgical History:?triple byp ass 2020knee replacement hysterectomy 2022 * Hospitalization/Major Diagno stic Procedure:?Denies Past Hospitalization * Family History:?Mother: dece ased, diagnosed with Unspecified essential hypertension.?Father: , foot problems, diagnosed with Unspecified cerebral artery occlusion with cerebral infarction.?Siblings: kidney/liver disease, diagnosed with Diabetic - NIDDM, Unspecified cerebral artery occlusion with cerebral infarction, Other malignant neoplasm of unspecified site.? * Social History:?Tobacco Use:?Tobacco Use/Smoking?Are you a:?former smoker ?Tobacco use other than smoking?Are you an other tobacco user??No ???Miscellaneous:?Caffeine: yes. ?Children: yes. ?no Exercise. ?Marital status: . ?Occupation: Retired. * Medications:?TakingVitamin D 3 Aspir-81 Lisinopril 30 MG Tablet 1 tablet Orally Once a dayMetoprolol Succinate 25 MG Capsule ER 24 Hour Sprinkle 1 capsule Orally Once a dayTorsemide 20 MG Tablet as directed Orally Atorvastatin Calcium 80 MG Tablet 1 tablet Orally Once a daymethIMAzole 5 MG Tablet 1 tablet Orally Once a dayamLODIPine Besylate 5 MG Tablet 1 tablet Orally Once a daymetFORMIN HCl 500 MG Tablet 1 tablet with a meal Orally Once a dayExtra Depth Diabetic Shoes with 3 Pair Custom heat-molded multi-density innersoles for 1 year Dx:Medication List reviewed and reconciled with the patientTaking Vitamin D3 Taking Aspir-81 Taking Lisinopril 30 MG Tablet 1 tablet Orally Once a dayTaking Metoprolol Succinate 25 MG Capsule ER 24 Hour Sprinkle 1 capsule Orally Once a dayTaking Torsemide 20 MG Tablet as directed Orally Taking Atorvastatin Calcium 80 MG Tablet 1 tablet Orally Once a dayTaking methIMAzole 5 MG Tablet 1 tablet Orally Once a dayTaking amLODIPine Besylate 5 MG Tablet 1 tablet Orally Once a dayTaking metFORMIN HCl 500 MG Tablet 1 tablet with a meal Orally Once a dayTaking Extra Depth Diabetic Shoes with 3 Pair Custom heat-molded multi- density innersoles for 1 year Dx:Medication List reviewed and reconciled with the patient * Allergies:?Adhesive: mignon beatty[Allergies Verified] Objective: * Vitals:?Ht: 5ft 5in, Wt: 200 , BMI: 33.28, Shoe size: 11, BS: 168, Wt-k.72 kg. * ???Past Orders: ???Lab:HEMOGLOBIN A1C (GLYCO HEMOGLOBIN) (Order Date - 06/15/2023) (Collection Date - 05/03/2023) ? Value Reference Range ?HEMOGLOBIN A1C (HH) 7.0 * Examination: ???Neurological: ?SENSORY:? Neurological exam demonstrates, reduced vibration sensation, 5.07 monofilament test performed at plantar aspects of 5 varied sites per foot shows sensation, at Forefoot, B/L.?TINEL'S COMPRESSION:?Negative tarsal tunnel, humphrey pedis, and medial calcaneal nerves B/L.?BABINSKI REFLEX:?absent.?Vascular: ?DP PULSES:? 1/4, B/L.?PT PULSES:? 0/4, B/L.?CAPILLARY FILL TIME:?3 secs. per digit, B/L.?SKIN TEMPERTURE GRADIENT OF THE LOWER EXTERMITIES:?warm to cool, proximal to distal, B/L.?HAIR GROWTH/TEXTURE/ELASTICITY/TURGOR:?normal, B/L.?PIGMENTATION:?normal, B/L.?EDEMA:?no edema.?TELANGECTASIA:?absent.?VARICOSITIES:?absent.?Nails: ?NAILS are:? Elongated, overgrown, dystrophic, lytic, greater than 3mm thick, discolored and friable with crumbly malodorous subungual debris, with dull to no pain on palpation due to neuropathy, 1-5 B/L.?Dermatologic: ?SKIN FINDINGS:?Skin exam reveals Keratotic lesion(s) located at, Medial plantar, IPJ, TA, T5.?VERRUCA:?Reveals Multiple ( __2_ ), multi-loculated , mosaic-patterned, round, raised, flat-topped, petechial bleeding papule(s), with cauliflower appearance and interruption of skin lines, with pain to lateral compression, and size estimated at __3__ mm diameter, plantar Forefoot, RIGHT.?General Examination: ?GENERAL APPEARANCE:?pleasant, alert, well nourished, well developed, well hydrated, with good attention to hygene/body habitus, and in no acute distress.?ORIENTED:?person,place, and time.?Neuroma Pain: ?PALPATION:?No interspace pain noted on palpation.?Orthopedic: ?MUSCLE STRENGTH:?5/5 all groups in a symmetrical fashion , B/L.?GAIT ABNORMALITY:?pronated, abducted, B/L.?GREGORIO'S BUNION:? Prominent, painful, inflamed 5th MTH/MPJ, RIGHT.?Ophthalmology Referral: ?DIABETES EYE EXAM? Assessment: * Assessment: 1.?Type 2 diabetes mellitus with diabetic polyneuropathy - E11.42?2.?Pain in right toe(s) - M79.674?3.?Pain in left toe(s) - M79.675?4.?Other viral warts - B07.8?5.?Tinea unguium - B35.1 (Primary)?6.?Pain in left foot - M79.672?7.?Pain in right foot - M79.671? Plan: * Treatment: * Procedures:?Debride Nail 6-10:?Nail debridement?Nail debridement performed extensively to reduce/remove overall nail length and girth, subungual debris, and necrotic tissue, by manual and electrical means with use of a nail nipper and/or dremel, to more viable healthy nail plate or bed tissue 6-10. Silver nitrate used for any petechial bleeding as necessary. Patient chooses, no pharmaceutical tx (32711).?Keratoma Treatment:?Parring or Cutting of Benign Hyperkeratotic Lesion(s)?81068 ( 2-4 Lesions ) - The Benign hyperkeratotic lesions, as described above were pared, and/or cut utilizing a sterile 15 blade, tissue nippers, and/or dremel.?Wart Treatment:?Procedure?Verrucae(s) were debrided to pin-point bleeding margins with sterile surgical blade (35370), silver nitrate chemocautery applied, DIABETES: Any more invasive procedure to wart deferred due to diabetes risk.? * Procedure Codes:?80402 DEBRI DE NAIL, 6 OR MORE, Modifiers: XS 81000 Wart Destruction, 1-14, Modifiers: XS 65718 TRIM SKIN LESIONS, 2 TO 4, Modifiers: XS * Follow Up:?2 Months, 3 Month s * Images: * Sign off status: Completed true * Provider:Hasmukh Jeffers DPM Date:? 024 Generated for Printi ng/Faxing/eTransmitting on:?04/11/2024 12:36 PM EST History and Physical Notes * HPI (History of Present Illness) Category Sub-Category Detail Notes Category Not es At Risk footcare Pt States Last PCP Visit: Date: 4 Foot Pain Aggrevated: any pressure, st anding, walking Onset/Cause: unknown, zachies brenda harrington Course: intermittent Duration: several years Nature: sharp Treatments: change in shoes, pre vious tx with Dr. Sorto Quality/Severity severe Location Outside, Forefoot, R ight Examination Category Sub-Category Detail Notes Category Not es Neuroma Pain PALPATION: No interspace pain noted on palpation Neurological SENSORY: Neurological exa m demonstrates, reduced vibration sensation, 5.07 monofilament test performed at plantar aspects of 5 varied sites per foot shows sensation, at Forefoot, B/L BABINSKI REFLEX: absent TINEL'S COMPRESSION: Negative tarsal ronald yolie, humphrey pedis, and medial calcaneal nerves B/L Dermatologic SKIN FINDINGS: Skin exam reveal s Keratotic lesion(s) located at, Medial plantar, IPJ, TA, T5 VERRUCA: Reveals Multiple ( _ _2_ ), multi-loculated , mosaic-patterned, round, raised, flat-topped, petechial bleeding papule(s), with cauliflower appearance and interruption of skin lines, with pain to lateral compression, and size estimated at __3__ mm diameter, plantar Forefoot, RIGHT Orthopedic GAIT ABNORMALITY: pronated, abducted, B/L TAILOR'S BUNION: Prominent, painful, inflamed 5th MTH/MPJ, RIGHT MUSCLE STRENGTH: 5/5 all groups in a symmetrical fashion , B/L General Examination GENERAL APPEARANCE: pleasant , alert, well nourished, well developed, well hydrated, with good attention to hygene/body habitus, and in no acute distress ORIENTED: person,place, and ti me Ophthalmology Referral DIABETES EYE EXAM Diabetic Retinopa thy Screening:: Yes Findings of Diabetic Eye Exam:: no retin opathy Vascular DP PULSES (B): 1/4, B/L PT PULSES (B): 0/4, B/L CAPILLARY FILL TIME: 3 secs. per digit, B/L TEMPERTURE GRADIENT (C): warm to cool, p roximal to distal, B/L TROPHIC CONDITION-TEXTURE/ELASTICITY/TURGOR/HAIR GROWTH (B): normal, B/L EDEMA (C): no edema TELANGECTASIA: absent VARICOSITIES: absent PIGMENTATION: normal, B/L Nails NAILS are: Elongated, overg rown, dystrophic, lytic, greater than 3mm thick, discolored and friable with crumbly malodorous subungual debris, with dull to no pain on palpation due to neuropathy, 1-5 B/L
--- OUTSIDE RECORDS SUMMARY | 2024-04-11 12:37 | XMS_ITS ---
Author Organization [facility] Address [address] [facility] [place] [address] Care Team Providers Care Hoisting Engineer Name Role Phone Ry Soriano Primary Care Provider UnavailClive Angulo Unavailable [phone] Enzo Jeffers Unavailable [phone] Allergies Allergen (clinical drug ingredient) Drug/Non Drug Allergy documented on EMR Reaction Allergy Type Onset Date Status Adhesive breakout Allergy Active REASON FOR VISIT Painful nail(s) aggrevated by shoes and causing difficulty standing/walking., Wart(s) Medications Medication SIG (Take, Route, Frequency, Duration) Notes Start Date End Date Status Extra Depth Diabetic Shoes with 3 Pair Custom heat-molded multi-density innersoles for 1 year Dx: Active Vitamin D3 Active Lisinopril 30 MG 1 tablet Orally Once a day for 30 day(s) Active Aspir-81 Active Metoprolol Succinate 25 MG 1 capsule [...] Once a day for 30 day(s) Active Social History Tobacco Use: Social History [...] No Vital Signs Height 5ft 5in in 09/14/2023 Weight 202 lbs 09/14/2023 BMI 33.61 kg/m2 09/14/2023 Procedures Procedure Date Ordered Date Performed Result Body Sit e 46657-XWGD SKIN LESIONS, 2 TO 4 09/14/2023 N/A Encounters Encounter Location Date Provider Diagnosis [facility] [place] [address] [place] [id number] 09/14/2023 Enzo Jeffers Type 2 diabetes mellitus with diabetic polyneuropathy E11.42 ; Pain in right toe(s) M79.674 ; Pain in left toe(s) M79.675 ; Tinea unguium B35.1 ; Other viral warts B07.8 ; Pain in left foot M79.672 and Pain in right foot M79.671 Assessments Encounter Date Diagnosis (ICD Code) Assessment Notes Treatment Notes Treatment Clinical Notes Section Notes 09/14/2023 Type 2 diabetes mellitus with diabetic polyneuropathy (ICD-10 - E11.42) 09/14/2023 Pain in right toe(s) (ICD-10 - M79.674) 09/14/2023 Pain in left toe(s) (ICD-10 - M79.675) 09/14/2023 Tinea unguium (ICD-10 - B35.1) 09/14/2023 Other viral warts (ICD-10 - B07.8) 09/14/2023 Pain in left foot (ICD-10 - M79.672) 09/14/2023 Pain in right foot (ICD-10 - M79.671) Plan Of Treatment Medication Medication Name Sig Start Date Stop Date Notes Extra Depth Diabetic Shoes w ith 3 Pair Custom heat-molded multi-density innersoles for 1 year Dx: Pending Test Test Name Order Date 39045-FGSW SKIN LESIONS, 2 TO 4 09/14/19 24 Next Appt Details Follow Up: 2 Months, Reason: Provider Name:Clive Vilchis , 06/02/2024 10:00:00 AM, [address] [facility], [place] [address], [place], [phone], Procedure Notes * Category Sub-Category Detail Notes Wart Treatment Procedure Verrucae(s) were debrided to pin-point bleeding margins with sterile surgical blade (84158), silver nitrate chemocautery applied, DIABETES: Any more [...] as necessary. Patient chooses, no pharmaceutical tx (32461) Keratoma Treatment Parring or Cutting o f Benign Hyperkeratotic Lesion(s) 92447 ( 2-4 Lesions ) - The Benign hyperkeratotic lesions, as described above were pared, and/or cut utilizing a sterile 15 blade, tissue nippers, and/or dremel Progress Notes * Lauren CROWLEY BDOB:1945 ( 78 yo F)Acc No.[id number]:09/14/2023 Progress Note Patient:?Keo Lauren Toribio Provider:?Enzo Jeffers DPM :1945???Age:78 Y???Sex:Female D ate:09/14/2023 Address:[address] [place], [place] [phone] Pcp:Ry Soriano Subjective: * Chief Complaints: * ??? Painful nail(s) aggrevat ed by shoes and causing difficulty standing/walking.Wart(s) * HPI: ???At Risk footcare:?Pt States Last PCP Visit:?Date?05/05/2023 ???Foot Pain:?Nature:?sharp.?Location?Outside, Forefoot, Right .?Duration:?several years.?Onset/Cause:?unknown, denies trauma.?Course:?intermittent.?Aggrevated:?any pressure, standing, walking.?Treatments:?change in shoes, previous tx with Dr. Sorto.?Quality/Severity?severe.? * ROS:?General/Constitutional:?Nausea?denies.?Vomiting?denies.?Hunger Thirst?denies.?Loss appetite?denies.?Chills?denies.?Fatigue?denies.?Fever?denies.?Night Sweats?denies.?Unexplained weight loss?denies.?Unexplained [...] year??No ?Points?0 ?Interpretation?Negative ???Miscellaneous:?Caffeine: yes. ?Children: yes. ?Marital status: . ?Occupation: Retired. * Medications:?TakingVitamin D 3 -81 Lisinopril 30 MG Tablet 1 tablet Orally [...] reconciled with the patientTaking Vitamin D3 Taking - Taking Lisinopril 30 MG Tablet 1 tablet [...] and reconciled with the patient * Allergies:?Adhesive: breakou tyes[Allergies Verified] Objective: * Vitals:?Ht: 5ft 5in, Wt: 202 , BMI: 33.61, Shoe size: 11, BS: 178, Wt-k.63 kg. * ???Past Orders: ???Lab:HEMOGLOBIN A1C (GLYCO [...] lesion(s) located at, Medial plantar, IPJ, TA, T5.?VERRUCA:? Reveals a Single , multi-loculated , mosaic-patterned, round, raised, flat-topped, petechial bleeding papule(s), with cauliflower appearance and interruption of skin lines, pain to lateral compression, and size estimated at __2-3__ mm diameter, plantar Forefoot, RIGHT 5th mtpj.?General Examination: ?GENERAL APPEARANCE:?pleasant, alert, well nourished, well developed, well hydrated, with good attention to hygene/body habitus, and in no acute distress.?ORIENTED:?person,place, and time.?Neuroma Pain: ?PALPATION:?No interspace pain noted on palpation.?Orthopedic: ?MUSCLE STRENGTH:?5/5 all groups in a symmetrical fashion , B/L.?GAIT ABNORMALITY:?pronated, abducted, B/L.?TAILOR'S BUNION:? Prominent, painful, inflamed 5th MTH/MPJ, RIGHT.? Assessment: * Assessment: 1.?Type 2 diabetes mellitus with diabetic polyneuropathy - E11.42?2.?Pain in right toe(s) - M79.674?3.?Pain in left toe(s) - M79.675?4.?Tinea unguium - B35.1 (Primary)?5.?Other viral warts - B07.8?6.?Pain in left foot - M79.672?7.?Pain in right [...] as necessary. Patient chooses, no pharmaceutical tx (85143).?Keratoma Treatment:?Parring or Cutting of Benign Hyperkeratotic Lesion(s)?10316 ( 2-4 Lesions ) - The Benign hyperkeratotic lesions, as described above were pared, and/or cut utilizing a sterile 15 blade, tissue nippers, and/or dremel.?Wart Treatment:?Procedure?Verrucae(s) were debrided to pin-point bleeding margins with sterile surgical blade (52435), silver nitrate chemocautery applied, DIABETES: Any more invasive procedure to wart deferred due to diabetes risk.? * Procedure Codes:?79438 DEBRI DE NAIL, 6 OR MORE, Modifiers: XS 54632 Wart Destruction, 1-14, Modifiers: XS 92249 TRIM SKIN LESIONS, 2 TO 4, Modifiers: XS * Preventive Medicine:? ??Counseling:?Discussion:?-13: Office or other outpatient visit for the evaluation and management of an established patient, which required a medically appropriate history and/or examination and LOW level of DECISION MAKING for: 1 STABLE ACUTE UNCOMPLICATED PROBLEM, 2 OR MORE MINOR PROBLEMS, OR 1 STABLE CHRONIC PROBLEM, THAT POSE(S) A LOW RISK FOR MORBIDITY/MORTALITY. The visit on the day of the [...] have encouraged the patient to call the office.? * Follow Up:?2 Months * Images: * Sign off status: Completed true * Provider:?Enzo Jeffers DPM Date:? 024 Generated for Ollie lea/Neida/Cammy on:?04/11/2024 12:36 PM EST History and Physical Notes * HPI (History of Present Illness) Category Sub-Category Detail Notes Category Not es At Risk footcare Pt States Last PCP Visit: Date: 4 Foot Pain Aggrevated: any pressure, st anding, walking Onset/Cause: unknown, yris gutierrez ma Course: intermittent Duration: several years Nature: sharp [...] Medial plantar, IPJ, TA, T5 VERRUCA: Reveals a Single , m ulti-loculated , mosaic-patterned, round, raised, flat-topped, petechial bleeding papule(s), with cauliflower appearance and interruption of skin lines, pain to lateral compression, and size estimated at __2-3__ mm diameter, plantar Forefoot, RIGHT 5th mtpj Orthopedic GAIT ABNORMALITY: pronated, abducted, B/L TAILOR'S BUNION: Prominent, painful, inflamed 5th MTH/MPJ, RIGHT MUSCLE STRENGTH: 5/5 all groups in a symmetrical fashion , B/L General Examination GENERAL APPEARANCE: pleasant , alert, well nourished, well developed, well hydrated, with good attention to hygene/body habitus, and in no acute distress ORIENTED: person,place, and ti me Vascular DP PULSES (B): 1/4, B/L PT [...]
--- OUTSIDE RECORDS SUMMARY | 2024-04-11 12:37 | XMS_ITS | Patient Health Record ---
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 Name Role Phone Ry Soriano Primary Care Provider UnavailClive Angulo Unavailable [phone] Enzo Jeffers Unavailable [phone] Allergies Allergen (clinical drug ingredient) Drug/Non Drug Allergy documented on EMR Reaction Allergy Type Onset Date Status Adhesive per pt no allergy Allergy Active Results Component Value Reference Range Notes HEMOGLOBIN A1C (GLYCOHEMOGLO BIN) Reviewed date:06/15/2023 10:16:54 AM Interpretation: Performing Lab: Notes/Report: HEMOGLOBIN A1C (HH) 7.0 Reason For Referral No Information Medications Medication SIG (Take, Route, Frequency, Duration) Notes Start Date End Date Status Vitamin D3 Active Extra Depth Orthopedic Shoes, [...] Torsemide 20 MG as directed Orally Active Aspir-81 Active Lisinopril 30 MG 1 tablet Orally Once a day for 30 day(s) Active Immunizations Vaccine Route Administration Date Status Comme nts Influenza Unknown 05/03/2022 Administered Social History Tobacco Use: Social History Observation [...] Problem Status W/U Status Risk Notes Problem Acquired hammer toe of right foot (5274429441728 105) Other hammer toe(s) (acquired), right foot (M20.41) Active confirmed Problem Type 2 diabetes mellitus with peripheral angiopathy (762950778) Type 2 diabetes mellitus with diabetic peripheral angiopathy without gangrene (E11.51) Active confirmed Q7(A), Q8(2B), Q9(1B,2C) Problem Acquired hammer toe of left foot (1110621889031 103) Other hammer toe(s) (acquired), left foot (M20.42) Active confirmed Problem Plantar wart (65404968) Plantar wart (B07.0) Active confirmed Vital Signs Height 5ft 5in in 03/05/2024 Weight 200 lbs 03/05/2024 BMI 33.28 kg/m2 03/05/2024 Procedures Procedure Date Ordered Date Performed Result Body Sit e 99291-CLBU SKIN LESIONS, 2 TO 4 06/15/2023 N/A 24598-FXXV SKIN LESIONS, 2 TO 4 09/14/2023 N/A 60773-GJZCVTX NAIL, 6 OR MORE 03/05/2024 N/A 13257-Yueg Destruction, 1-14 03/05/2024 N/A 70971-RIAP SKIN LESIONS, OVER 4 03/05/2024 N/A Encounters Encounter Location Date Provider Diagnosis [facility] [address] [address] 06/15/2023 Enzo Jeffers Type 2 diabetes mellitus with diabetic polyneuropathy E11.42 ; Pain in right toe(s) M79.674 ; Tinea unguium B35.1 ; Pain in left toe(s) M79.675 ; Other viral warts B07.8 ; Pain in left foot M79.672 and Pain in right foot M79.[address] [address] 09/14/2023 Enzo Jeffers Type 2 diabetes mellitus with diabetic polyneuropathy E11.42 ; Pain in right toe(s) M79.674 ; Pain in left toe(s) M79.675 ; Tinea unguium B35.1 ; Other viral warts B07.8 ; Pain in left foot M79.672 and Pain in right foot M79.[address] [address] 12/07/2023 Enzo Jeffers Type 2 diabetes mellitus with diabetic polyneuropathy E11.42 ; Pain in right toe(s) M79.674 ; Pain in left toe(s) M79.675 ; Tinea unguium B35.1 ; Other viral warts B07.8 ; Pain in left foot M79.672 and Pain in right foot M79.[address] [address] 03/05/2024 Cliveirma WardDeng Type 2 diabetes mellitus with diabetic peripheral [...] Treatment Notes Treatment Clinical Notes Section Notes 06/15/2023 Type 2 diabetes mellitus with diabetic polyneuropathy (ICD-10 - E11.42) Patient Educated with: DIABETIC FOOT CARE INSTRUCTIONS. pdf (DIABETIC FOOT CARE INSTRUCTIONS. pdf) 09/14/2023 Type 2 diabetes mellitus with diabetic polyneuropathy (ICD-10 - E11.42) 12/07/2023 Type 2 diabetes mellitus with diabetic polyneuropathy (ICD-10 - E11.42) 03/05/2024 Type 2 diabetes mellitus with diabetic peripheral angiopathy without gangrene (ICD-10 - E11.51) Q7(A), Q8(2B), Q9(1B,2C) 03/05/2024 Plantar wart (ICD-10 - B07.0) 03/05/2024 Tinea unguium (ICD-10 - B35.1) 09/14/2023 Pain in right toe(s) (ICD-10 - M79.674) 12/07/2023 Pain in right toe(s) (ICD-10 - M79.674) 06/15/2023 Pain in right toe(s) (ICD-10 - M79.674) 06/15/2023 Pain in left toe(s) (ICD-10 - M79.675) 06/15/2023 Tinea unguium (ICD-10 - B35.1) 09/14/2023 Tinea unguium (ICD-10 - B35.1) 12/07/2023 Pain in left toe(s) (ICD-10 - M79.675) 09/14/2023 Pain in left toe(s) (ICD-10 - M79.675) 03/05/2024 Pain in right toe(s) (ICD-10 - M79.674) 03/05/2024 Pain in left toe(s) (ICD-10 - M79.675) 12/07/2023 Other viral warts (ICD-10 - B07.8) 12/07/2023 Tinea unguium (ICD-10 - B35.1) 09/14/2023 Other viral warts (ICD-10 - B07.8) 06/15/2023 Other viral warts (ICD-10 - B07.8) 06/15/2023 Pain in left foot (ICD-10 - M79.672) 09/14/2023 Pain in left foot (ICD-10 - M79.672) 12/07/2023 Pain in left foot (ICD-10 - M79.672) 03/05/2024 Right foot pain (ICD-10 - M79.671) 03/05/2024 Other hammer toe(s) (acquired), right foot (ICD-10 - M20.41) Patient Educated with: DIABETIC FOOT CARE INSTRUCTIONS. pdf (DIABETIC FOOT CARE INSTRUCTIONS. pdf) 12/07/2023 Pain in right foot (ICD-10 - M79.671) 09/14/2023 Pain in right foot (ICD-10 - M79.671) 06/15/2023 Pain in right foot (ICD-10 - M79.671) 03/05/2024 Other hammer toe(s) (acquired), left foot (ICD-10 - M20.42) Plan Of Treatment Pending Test Test Name Order Date 23672-LSTZPQR NAIL, 6 OR MORE 03/05/2024 56788-Thcl Destruction, 1-14 03/05/2024 02937-NKGS SKIN LESIONS, OVER 4 03/05/20 12110-OGOQ SKIN LESIONS, 2 TO 4 06/15/19 24 38781-VAZY SKIN LESIONS, 2 TO 4 09/14/19 24 Next Appt Details Provider Name:Clive Vilchis , 06/02/2024 10:00:00 AM, [address] [facility] [address], [place], [address], Insurance Providers Payer Name Payer Address Payer Phone Subscriber Number Group Number Insured Name Patient Relationship to Insured Coverage Start Date Coverage End Date [facility] [employer] Claims [address] [place] [id number] Lauren Crowley Self - patient is the insured Medical (General) History Medical History History ICD Code Arthritis Back,Hip,and Knee pain Cataracts covid-19 Diabetic High blood pressure Reflux ( GERD) Chicken pox Hypercholesterolemia Surgical History Surgery Date(Month/Year) triple bypass 2020 knee replacement hysterectomy 2022
== END 2024-04-11 13:00 | disposition home or self-care (01) ==
PROVIDERS: PCP Internal Medicine; Visit Provider Internal Medicine
DX: Z00.00 Encounter for general adult medical examination without abnormal findings (principal); E11.65 Type 2 diabetes mellitus with hyperglycemia; Z79.4 Long term (current) use of insulin; E66.9 Obesity, unspecified; Z68.34 Body mass index [BMI] 34.0-34.9, adult; E78.00 Pure hypercholesterolemia, unspecified; I25.10 Atherosclerotic heart disease of native coronary artery without angina pectoris; I10 Essential (primary) hypertension

== ENCOUNTER → 2024-04-11 12:32 | Outpatient (BNVA) | payer OTHER, SELFPAY | PROVIDERS: PCP Internal Medicine; Visit Provider Internal Medicine | DX: Z00.00 Encounter for general adult medical examination without abnormal findings (principal); G89.29 Other chronic pain; M25.569 Pain in unspecified knee; E78.5 Hyperlipidemia, unspecified; E11.65 Type 2 diabetes mellitus with hyperglycemia; E78.00 Pure hypercholesterolemia, unspecified; I25.10 Atherosclerotic heart disease of native coronary artery without angina pectoris; I10 Essential (primary) hypertension; E66.9 Obesity, unspecified; Z87.891 Personal history of nicotine dependence; Z79.4 Long term (current) use of insulin; Z79.899 Other long term (current) drug therapy; Z68.34 Body mass index [BMI] 34.0-34.9, adult | CPT/HCPCS: 96127; 99397 ==

== ENCOUNTER 2024-06-17 11:20 | Outpatient (AMB) | payer OTHER, SELFPAY ==
[2024-06-17 11:33] VITALS: BP 118/72; PULSE 76; TEMP 36.8; O2SAT 92; BMI 33.9
--- NOTE | 2024-06-17 11:33 | MHC.OFFWIV ---
Intake Vital Signs 06/17/24 11:33 Height 5 ft 4 in Weight 197 lb 8 oz BMI 33.9 BP 118/72 Blood Pressure Location Lt brachial Position Sitting Pulse 76 Pulse Source Pulse Oximeter Temp 98.2 F Temp Source Oral Pulse Oximetry (%) 92 Oxygen Delivery Method Room Air Intake Visit Reasons: EP-?urine infection Intake Note: Pt presents to the office today for c/o questioning urine infection. Pt states she has no UTI symptoms besides having foul smelling urine x4 days. Patient Tobacco Use Status: Former Tobacco user Allergies No Known Allergies [No Known Allergies*] Allergy (Verified 06/17/24 11:34) HPI HPI Comments History of Present Illness Details This is a 70-year-old female with a past medical history of insulin-dependent diabetes, hypertension, coronary disease, hysterectomy and hyperlipidemia presenting for evaluation of foul-smelling urine that she has had for the past 4 days. Patient denies having any fevers, chills, nausea, vomiting, dysuria, urinary frequency, vaginal discharge or flank pain. Patient has not taken any medication for treatment of her symptoms and denies initiating any new medications for her routine medical problems. [facility] Medical History (Updated 06/17/24 @ 11:59 by Regine Kowalski PA-C) Pulmonary edema COVID-19 virus infection Obesity (BMI 30-39.9) Diabetic nephropathy Essential hypertension Lab test positive for detection of COVID-19 virus Toxic multinodular goiter Tubular adenoma of colon Coronary artery disease Hypercholesterolemia Type 2 diabetes mellitus with hyperglycemia Surgical History Hx of colonoscopy Status post coronary artery bypass graft History of coronary artery bypass graft x 3 (~09/17/19) History of cardiac catheterization (~09/16/19) History of total left knee replacement H/O umbilical hernia repair S/P lumpectomy, left breast Family History Father No problems noted. Mother No problems noted. Social History (Updated 04/11/24 @ 12:48 by Ry Soriano MD) Housing: Apartment Alcohol intake: current Alcohol intake frequency: holidays/special occasions only Comment: beer new year Patient Tobacco Use Status: Former Tobacco user Tobacco use type: Cigarette Years Smoked: 1999 quit e-Cigarette/Vaping Use: Never Used Second Hand Smoke Exposure: No Advance Directives Date on File: 01/08/20 service: No Current occupational status: retired Cognitive needs: Yes (cane ) Hearing needs: No Vision needs: Yes (glasses) Review of Systems Const All systems reviewed & are unremarkable except as noted in HPI and below Eyes Reports no additional complaints ENT Reports no additional complaints Card Reports no additional complaints Resp Reports no additional complaints GI Reports no additional complaints, Denies diarrhea, Denies nausea and Denies vomiting Denies vaginal pruritus and Reports other (foul smelling urine) Skin/Breast Reports system reviewed and no additional complaints, except as documented Neuro Reports no additional complaints Endo Reports no additional complaints Edgar/Lymph Reports no additional complaints Aller/Immun Reports no additional complaints Physical Exam Vital Signs: Last Vital Signs Temp 98.2 F 06/17/24 11:33 Pulse 76 06/17/24 11:33 BP 118/72 06/17/24 11:33 Pulse Ox 92 06/17/24 11:33 Oxygen Delivery Method Room Air 06/17/24 11:33 BMI result Body Mass Index 33.9 Patient is afebrile. Const General: cooperative, healthy appearing, comfortable, no acute distress, well developed, alert and awake Nutritional Appearance: overweight Orientation/consciousness: patient oriented x3 Limitations: no limitations GI Palpation (GI): Soft to palpation, nontender and no guarding General: Yes Bimanual renal exam normal bilaterally, Yes bladder normal to palpation and No CVA tenderness Bimanual exam- vagina & uterus: bladder normal to palpation Back/Spine/Pelvis Back: No CVA tenderness Skin General skin exam: no rashes or lesions noted Neuro General: patient oriented x3 Psych Appearance: grossly normal Mental Status: mental status grossly normal Insight: Good insight present (Psych) Judgement: Good judgement present (Psych) Results AMB Urinalysis, Automated UA Leukoctes 0 Martha/uL Last Edit by Debbi Upton CMA on 06/17/24 11:40 UA Nitrite Negative Last Edit by Debbi Upton CMA on 06/17/24 11:40 UA Urobilinogen 0.2 mg/dL Last Edit by Debbi Upton CMA on 06/17/24 11:40 UA Protein 30 mg/dL Last Edit by Debbi Upton CMA on 06/17/24 11:40 UA pH 6.0 Last Edit by Debbi Upton, RADHA on 06/17/24 11:40 UA Blood 0 Filiberto/uL Last Edit by Debbi Upton, RADHA on 06/17/24 11:40 UA Specific [place] 1.015 Last Edit by Debbi Upton, RADHA on 06/17/24 11:40 UA Ketone Negative Last Edit by Debbi Upton, RADHA on 06/17/24 11:40 UA Bilirubin 0 mg/dL Last Edit by Debbi Upton CMA on 06/17/24 11:40 UA Glucose 0 mg/dL Last Edit by Debbi Upton, RADHA on 06/17/24 11:40 Results Reviewed Results Reviewed: Laboratory Last Values Urine pH (Auto) 6.0 06/17/24 11:39 Specific [place] (Auto) 1.015 06/17/24 11:39 Urine Protein (Auto) 30 mg/dL 06/17/24 11:39 Glucose (UA)(Auto) 0 mg/dL 06/17/24 11:39 Urine Ketones (Auto) Negative 06/17/24 11:39 Urine Blood (Auto) 0 Filiberto/uL 06/17/24 11:39 Urine Nitrite (Auto) Negative 06/17/24 11:39 Urine Bilirubin (Auto) 0 mg/dL 06/17/24 11:39 Urine Urobilinogen (Auto) 0.2 mg/dL 06/17/24 11:39 Leukocyte Esterase (Auto) 0 Martha/uL 06/17/24 11:39 Urinalysis is reviewed. Urine culture will be deferred. Assessment & Plan Assessment & Plan (1) Foul smelling urine: Comment: Urinalysis is not consistent with an acute urinary tract infection and urine culture will be deferred. Patient denies any vaginal discharge and therefore pelvic examination will not be pursued at this time. Code(s): R82.90 - Unspecified abnormal findings in urine Plan: Patient will stay very well hydrated and monitor her symptoms. Patient is invited to return as needed. Orders: Orders AMB Urinalysis Automated Today R82.90 - Unspecified abnormal findings in urine Coding Level of Care Code Est Pt Level 3 (03401) Diagnoses Foul smelling urine R82.90 Time Spent (min) 20
--- OUTSIDE RECORDS SUMMARY | 2024-06-17 13:49 | XMS_ITS | Patient Health Record ---
Author Organization [facility] Address [address] [facility] [place] [address] Care Team Providers Care Correspondent Name Role Phone Ry Soriano Primary Care Provider UnavailClive Angulo Unavailable [phone] Enzo Jeffers Unavailable [phone] Allergies Allergen (clinical drug ingredient) Drug/Non Drug Allergy documented on EMR Reaction Allergy Type Onset Date Status Adhesive per pt no allergy Allergy Active Results Component Value Reference Range Notes HEMOGLOBIN A1C (GLYCOHEMOGLO BIN) Reviewed date:06/02/2024 10:08:21 AM Interpretation: Performing Lab: Notes/Report: HEMOGLOBIN A1C % (HH) 7.0 Reason For Referral No Information Medications Medication SIG (Take, Route, Frequency, Duration) Notes Start Date End Date Status metFORMIN HCl 500 MG 1 tablet with a linda l Orally Once a day for 30 day(s) Active amLODIPine Besylate 5 MG 1 tablet Orally Once a day for 30 day(s) Active Extra Depth Orthopedic Shoes, (1) Pair With (3) Pair Custom Heat Molded Multidensity Innersoles Dx: NIDDM/PVD(E11.51), Hammertoe Foot Deformity(M20.41,M20.42), Preulcerative Skin Lesion(s)(L85.1) Wear Daily for 365 days 03/05/2024 Active Ciclopirox Olamine 0.77 % 1 application Externally Twice a day to skin of feet including between the toes for 30 days Active Vitamin D3 Active Lisinopril 30 MG 1 tablet Orally Once a day for 30 day(s) Active Aspir-81 Active Torsemide 20 MG as directed Orally Active Metoprolol Succinate 25 MG 1 capsule [...] Date Details (start date - stop date) Never Smoker NA - NA Alcohol Screen Question Answer Notes Did you have a drink containing alcohol in the p ast year? No Points 0 Interpretation Negative Tobacco use other than smoking: Question Answer Notes Are you an other tobacco user? No Tobacco Control (Standard) Question Answer Notes Tobacco use: Nonsmoker Additional Findings: Tobacco non-user Current no nsmoker Problems Problem Type SNOMED Code ICD Code Onset Dates Problem Status W/U Status Risk Notes Problem Acquired hammer toe of right foot (9824438282460 105) Other hammer toe(s) (acquired), right foot (M20.41) Active confirmed Problem Type 2 diabetes mellitus with peripheral angiopathy (433194008) Type 2 diabetes mellitus with diabetic peripheral angiopathy without gangrene (E11.51) Active confirmed Q7(A), Q8(2B), Q9(1B,2C) Problem Acquired hammer toe of left foot (5473638712669 103) Other hammer toe(s) (acquired), left foot (M20.42) Active confirmed Problem Plantar wart (90687588) Plantar wart (B07.0) Active confirmed Vital Signs Blood pressure diastolic 64 mm Hg 06/02/2024 Height 5ft 5in in 06/02/2024 Blood pressure systolic 131 mm Hg 06/02/2024 Weight 200 lbs 06/02/2024 BMI 33.28 kg/m2 06/02/2024 Procedures Procedure Date Ordered Date Performed Result Body Sit e 47998-DRKY SKIN LESIONS, 2 TO 4 09/14/2023 N/A 81081-WRTATKG NAIL, 6 OR MORE 03/05/2024 N/A 38551-Rlbt Destruction, 1-14 03/05/2024 N/A 83786-LCDX SKIN LESIONS, OVER 4 03/05/2024 N/A 92354-PJKGMGR NAIL, 6 OR MORE 06/02/2024 N/A 77766-Dssm Destruction, 1-14 06/02/2024 N/A 23219-SMWJ SKIN LESIONS, OVER 4 06/02/2024 N/A Encounters Encounter Location Date Provider Diagnosis [address] [address] 09/14/2023 Enzo Jeffers Type 2 diabetes mellitus with diabetic polyneuropathy E11.42 ; Pain in right toe(s) M79.674 ; Pain in left toe(s) M79.675 ; Tinea unguium B35.1 ; Other viral warts B07.8 ; Pain in left foot M79.672 and Pain in right foot M79.[address] [address] 12/07/2023 Enzo Jeffers Type 2 diabetes mellitus with diabetic polyneuropathy E11.42 ; Pain in right toe(s) M79.674 ; Pain in left toe(s) M79.675 ; Tinea unguium B35.1 ; Other viral warts B07.8 ; Pain in left foot M79.672 and Pain in right foot M79.[address] [address] 03/05/2024 Clive Vilchis Type 2 diabetes mellitus with diabetic peripheral angiopathy without gangrene E11.51 ; Plantar wart B07.0 ; Tinea unguium B35.1 ; Pain in right toe(s) M79.674 ; Pain in left toe(s) M79.675 ; Right foot pain M79.671 ; Other hammer toe(s) (acquired), right foot M20.41 and Other hammer toe(s) (acquired), left foot M20.[address] [address] 06/02/2024 Clive Vilchis Type 2 diabetes mellitus with diabetic peripheral angiopathy without gangrene E11.51 ; Plantar wart B07.0 ; Tinea unguium B35.1 ; Pain in right toe(s) M79.674 ; Pain in left toe(s) M79.675 ; Right foot pain M79.671 and Tinea pedis of both feet B35.3 Assessments Encounter Date Diagnosis (ICD Code) Assessment Notes Treatment Notes Treatment Clinical Notes Section Notes 09/14/2023 Type 2 diabetes mellitus with diabetic polyneuropathy (ICD-10 - E11.42) 12/07/2023 Type 2 diabetes mellitus with diabetic polyneuropathy (ICD-10 - E11.42) 03/05/2024 Type 2 diabetes mellitus with diabetic peripheral angiopathy without gangrene (ICD-10 - E11.51) Q7(A), Q8(2B), Q9(1B,2C) 03/05/2024 Plantar wart (ICD-10 - B07.0) 06/02/2024 Type 2 diabetes mellitus with diabetic peripheral angiopathy without gangrene (ICD-10 - E11.51) Q7(A), Q8(2B), Q9(1B,2C) 06/02/2024 Plantar wart (ICD-10 - B07.0) 06/02/2024 Tinea unguium (ICD-10 - B35.1) 03/05/2024 Tinea unguium (ICD-10 - B35.1) 09/14/2023 Pain in right toe(s) (ICD-10 - M79.674) 12/07/2023 Pain in right toe(s) (ICD-10 - M79.674) 09/14/2023 Tinea unguium (ICD-10 - B35.1) 12/07/2023 Pain in left toe(s) (ICD-10 - M79.675) 09/14/2023 Pain in left toe(s) (ICD-10 - M79.675) 03/05/2024 Pain in right toe(s) (ICD-10 - M79.674) 06/02/2024 Pain in right toe(s) (ICD-10 - M79.674) 06/02/2024 Pain in left toe(s) (ICD-10 - M79.675) 03/05/2024 Pain in left toe(s) (ICD-10 - M79.675) 12/07/2023 Other viral warts (ICD-10 - B07.8) 12/07/2023 Tinea unguium (ICD-10 - B35.1) 09/14/2023 Other viral warts (ICD-10 - B07.8) 09/14/2023 Pain in left foot (ICD-10 - M79.672) 12/07/2023 Pain in left foot (ICD-10 - M79.672) 03/05/2024 Right foot pain (ICD-10 - M79.671) 06/02/2024 Right foot pain (ICD-10 - M79.671) 03/05/2024 Other hammer toe(s) (acquired), right foot (ICD-10 - M20.41) Patient Educated with: DIABETIC FOOT CARE INSTRUCTIONS. pdf (DIABETIC FOOT CARE INSTRUCTIONS. pdf) 12/07/2023 Pain in right foot (ICD-10 - M79.671) 09/14/2023 Pain in right foot (ICD-10 - M79.671) 03/05/2024 Other hammer toe(s) (acquired), left foot (ICD-10 - M20.42) 06/02/2024 Tinea pedis of both feet (ICD-10 - B35.3) 06/02/2024 Other Plan Of Treatment Pending Test Test Name Order Date 85913-MLEGYVN NAIL, 6 OR MORE 03/05/2024 95723-VFKCRQA NAIL, 6 OR MORE 06/02/2024 38558-Wnqg Destruction, 1-14 06/02/2024 11543-Jztk Destruction, 1-14 03/05/2024 86223-LMDI SKIN LESIONS, OVER 4 03/05/20 24 76660-DIRF SKIN LESIONS, OVER 4 06/03/19 25 58156-DGRE SKIN LESIONS, 2 TO 4 06/15/19 24 07529-CAUY SKIN LESIONS, 2 TO 4 09/14/19 24 Next Appt Details Provider Name:Clive Vilchis , 08/21/2024 10:45:00 AM, [address] [facility] [address], [place], [address], Insurance Providers Payer Name Payer Address Payer Phone Subscriber Number Group Number Insured Name Patient Relationship to Insured Coverage Start Date Coverage End Date [facility] [employer] Claims [address] [place] [id number] [phone] [id number] Lauren Crowley Self - patient is the insured Medical (General) History Medical History History ICD Code Arthritis Back,Hip,and Knee pain Cataracts covid-19 Diabetic High blood pressure Reflux ( GERD) Chicken pox Hypercholesterolemia Surgical History Surgery Date(Month/Year) triple bypass 2020 knee replacement hysterectomy 2022
--- OUTSIDE RECORDS SUMMARY | 2024-06-17 13:49 | XMS_ITS | Data Portability ---
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 Role Phone HIM CCA OTHER Assessment Encounter Date Assessment Date Assessment LastModified by Organization Details LastModified Time 11/15/2021 11/15/2021 service called for f/up BP found 76 brenda in usual state of health without complaints s/p 2 wk hospital d/c from L shoulder pain and BP 180s/90s, which prevented her from standing, walking currently BP 170s/80s, without impairment or new TRUJILLO, vision changes , reports trace L shoulder pain since hospital dc which improves with acetaminophen of note, pt recently suffered traumatic loss of grandson VS BP as noted above, EKG without acute ischemic findings, notable for absence of voltage suggestive of LVH which was expected overall improved since hospital admission BP remains elevated, conitnue primary team re BP med titration f/up tomorrow to follow L shoulder pain - not clear if ischemic sx or MSK [email or web address] Not available 11/15/2021 11:10:55 09/14/2022 09/14/2022 77 YOF with cough and nasal congestion for 2 days. Pt had negative covid yesterday -No acute distress -Pt encouraged to use nasal saline for congestion REd flags discussed [email or web address] Not available 09/14/2022 16:01:32 12/29/2023 12/29/2023 Ms. Lauren Crowley is a 78yoF with a Pmhx of DM2 and OA who is seen today for further evaluation of hyperglycemia. Ms. Crowley reports that she frequently receives cortisone injections and will have some hyperglycemia the day or two after the injection. She received an injection yesterday and today her blood sugars were reading >500. She states that they do not normally get that high and called for an evaluation. She denies any symptoms including new/worsening dysuria, polydipsia, nausea/vomiting, confusion, or any other concerns and otherwise feels at her baseline. She took 26 units of SSI prior to medic arrival and POC glucose 340 on medic arrival. VSS. Medic on site reports vasculature is difficult access but able to obtain POC labs. Labs with a bicarb of 19 and potassium of 3.8, glucose 362. While likely very mild DKA based on labs, she is asymptomatic with normal vital signs and has access to insulin tonight with improving blood sugars. Recommended an additional 10u of SSI now and she will continue her regular regimen (with another dose of SSI tonight). Given 40mg of PO potassium in anticipation of extra insulin over the next day. Encouraged to orally rehydrate. Red flags reviewed. [email or web address] Not available 12/29/2023 15:48:13 Plan of Treatment Reminders Order Date Submit Date Provider Last Modified By Organization Details Last Modified Time Details Appointments None recorded. Lab BMP, serum or plasma 2023 024 [facility], [address] [place] [address], [id number], 19:24:42 Referral None recorded. Procedures None recorded. Surgeries None recorded. Imaging None recorded. Medication Orders potassium chloride ER 20 mEq tablet,ext ended release(pa rt/cryst) 2023 024 [email or web address] Not available 15:48:42 Patient TargetsNo targets recorded. Patient InstructionsNo instructions recorded. Reason for Referral None Reported. Results Created Date Observation Date Name Description Value Unit Range Abnormal Flag Note LastModifiedBy Organization Detail LastModifiedTime Result Notes None recorded. Medical Equipment None Reported. Medications Name Sig Start Date Stop Date Status Note LastModified by Organization Details LastModified Time metformin 500 mg tablet TAKE ONE TABLET BY MOUTH TWICE A DAY active Not Available Not Available No t Available atorvastatin 80 mg tablet TAKE ONE TABLET BY MOUTH EVERY DAY active Not Available Not Available No t Available acetaminophe n 325 mg tablet TAKE TWO TABLETS BY MOUTH EVERY 4 HOURS NEEDED FOR MILD PAIN. active Not Available Not Available N ot Available torsemide 20 mg tablet TAKE ONE TABLET BY MOUTH EVERY DAY active Not Available Not Available No t Available azithromycin 250 mg tablet TAKE 2 TABLETS ON FIRST DAY , THEN 1 TABLET DAILY FOR 4 DAYS active Not Available Not Available No t Available meloxicam 15 mg tablet TAKE ONE TABLET BY MOUTH EVERY DAY active Not Available Not Available No t Available lisinopril 20 mg tablet TAKE ONE TABLET BY MOUTH EVERY DAY active Not Available Not Available No t Available prednisone 20 mg tablet TAKE THREE TABLETS BY MOUTH EVERY DAY active Not Available Not Available No t Available amlodipine 5 mg tablet TAKE ONE TABLET BY MOUTH EVERY DAY active Not Available Not Available No t Available sulfamethoxa zole 800 mg-trimethop rim 160 mg tablet TAKE ONE TABLET BY MOUTH TWO TIMES A DAY FOR 7 DAYS active Not Available Not Available N ot Available amoxicillin 500 mg tablet TAKE ONE TABLET BY MOUTH THREE TIMES A DAY FOR 5 DAYS active Not Available Not Available N ot Available nitroglyceri n 0.[address] ONE TABLET UNDER THE TONGUE EVERY 5 MINUTES NEEDED FOR CHEST PAIN; DO NOT EXCEED 3 DOSES PER EPISODE DIRECTED active Not Available Not Available No t Available methimazole 5 mg tablet TAKE ONE TABLET BY MOUTH EVERY DAY active Not Available Not Available No t Available lisinopril 30 mg tablet TAKE ONE TABLET BY MOUTH EVERY DAY active Not Available Not Available No t Available docusate sodium 100 mg capsule TAKE ONE CAPSULE BY MOUTH TWICE A DAY NEEDED FOR CONSTIPATIO N active Not Available Not Available No t Available metoprolol succinate ER 25 mg tablet,exten ded release 24 hr TAKE ONE TABLET BY MOUTH TWICE A DAY active Not Available Not Available No t Available simethicone 80 mg chewable tablet TAKE TWO TABLETS BY MOUTH DAILY NEEDED FOR ABDOMINAL DISTENTION active Not Available Not Available N ot Available oxycodone 5 mg tablet TAKE ONE TABLET BY MOUTH EVERY 6 HOURS NEEDED FOR PAIN active Not Available Not Available No t Available Novolog FlexPen U-100 Insulin aspart 100 unit/mL (3 mL) subcutaneous INJECT 8-36 UNITS UNDER THE SKIN THREE TIMES A DAY BEFORE MEALS active Not Available Not Available No t Available FreeStyle Lite Strips CHECK BLOOD SUGAR THREE TIMES A DAY DIRECTED active Not Available Not Available Not Available Lantus Solostar U-100 Insulin 100 unit/mL (3 mL) subcutaneous pen INJECT 27 UNITS UNDER THE SKIN AT 7 IN THE EVENING ONCE DAILY active Not Available Not Available N ot Available diclofenac 1 % topical gel APPLY 4 GRAMS TOPICALLY FOUR TIMES A DAY TO SINGLE KNEE,ANKLE, FOOT;FOR FOOT INCLUDES SOLE/TOES/T OP OF FOOT. active Not Available Not Available Not Available ClearLax 17 gram/dose oral powder TAKE 17 GRAMS BY MOUTH DAILY NEEDED FOR CONSTIPATIO N. DISSOLVE IN WATER BEFORE TAKING. active Not Available Not Available No t Available Vitals Date Recorded Respiratory rate Heart rate Body weight Body temperature Oxygen saturation Oxygen saturation in Arterial blood by Pulse oximetry Systolic blood pressure Diastolic blood pressure Provider Name and Address Organization Details Last Updated DateTime 3 18 /min 86 /min 14793.4 g 98.2 [degF] 95 % 95 % 151 mm[Hg] 81 mm[Hg] Not Available [facility] 3 15:59:17 Date Recorded Respiratory rate Heart rate Oxygen saturation Oxygen saturation in Arterial blood by Pulse oximetry Systolic blood pressure Diastolic blood pressure Provider Name and Address Organization Details Last Updated DateTime 4 18 /min 80 /min 97 % 97 % 170 mm[Hg] 72 mm[Hg] Not Available [facility] 4 15:26:48 Date Recorded Heart rate Respiratory rate Body temperature Oxygen saturation Oxygen saturation in Arterial blood by Pulse oximetry Systolic blood pressure Diastolic blood pressure Provider Name and Address Organization Details Last Updated DateTime 2 68 /min 16 /min 97.2 [degF] 96 % 96 % 177 mm[Hg] 86 mm[Hg] Not Available [facility] 2 10:45:26 Social History None recorded. Functional Status None recorded. Mental Status None recorded. Family History Nothing Reported. Medical History No medical history recorded. Gynecological HistoryNo gynecological history recorded. Obstetrics History GPAL:G 0 P 0 0 0 0 Past Encounters Encounter ID Performer Location Encounter Start Date Encounter Closed Date Diagnosis/Indication Diagnosis SNOMED-CT Code Diagnosis ICD10 Code Diagnosis Note [id number] Cher Aldrich MD [address] [id number] 11/15/2021 10:44:55 12/23/2021 12:50:11 Essential hypertension 81334306 I10 [id number] Binu Miller MD [address] [id number] 09/14/2022 15:59:15 09/15/2022 10:12:45 Cough 64493046 R05.9 [id number] Susan Taylor MD [address] [address] 12/29/2023 15:26:46 12/31/2023 08:42:03 [facility] [id number] R73.9 Health Concerns Section Related Observation LastModified by Organization Detai ls LastModified Time None Recorded Concern Status LastModified by Organization Details LastModified Time None Recorded Advance Directives Directive None Recorded Payers Encounter Date Sequence Insurance Name Policy Number Policy Dillard Covered Member ID Dillard Member ID Guarantor Name 11/15/2021 1 [employer] - DOS PRIOR TO 2022 - DUAL ELIGIBLE (MEDICARE REPLACEMENT/ADV ANTAGE - HMO) Lauren Crowley [id number] Lauren Crowley 09/14/2022 1 [employer] - DOS ON OR AFTER 2022 - DUAL ELIGIBLE - ASSISTED OPTIONS AND ONE CARE (MEDICARE REPLACEMENT/ADV ANTAGE - HMO) Lauren Crowley [id number] Lauren Crowley 12/29/2023 1 [employer] - DOS ON OR AFTER 2022 - DUAL ELIGIBLE - ASSISTED OPTIONS AND ONE CARE (MEDICARE REPLACEMENT/ADV ANTAGE - HMO) Lauren Crowley [id number] Lauren Crowley Notes Date Note Type Note Provider Name and Address Organization Details Recorded Time 11/15/2021 text/html HPI: Member was recently discharged from hospital with elevated BP. Visited member today and BP continues to be elevated 178/82 ................... ................... ................... ................... ................... ................... ................... ........ 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 Call to member to triage. Per member Rosalinda came out at 10a this am and blood pressure was 178/82. Call palced to PCP, member has not heard back. Member sates she took her BP meds around 7:30-8a. She is unable to check her BP now, she does have a cuff on order. Member denies dizziness except when she gets up too fast, denies headache, vision changes or any other neurological deficits. Member does not want a visit tonight, will schedule visit for tomorrow. Red flags discussed, also ALTERATION WORKROOM SUPERVISOR(daughter) lives with member and will be there all night. Cher Aldrich MD [address] [facility],[address], [place], [phone], [employer] 11/15/2021 11:11:16 09/14/2022 text/html [facility] Nursing Assessment: Patient Reports: Cough, fever greater than 2 days Chief Complaints: Cough PMH: Hypertension, Heart Disease Allergies: No Known Comments: Sister calling on behalf of member with request for MIH for eval prod cough x 2 days deny fever/chills unsure if she took OTC cough med . O2 sats drop with cough but remain stable. Verify member name/- Binu Miller MD [address] [facility],[address], [place], [phone], [employer] 09/14/2022 16:01:50 12/29/2023 text/html HPI: Second outreach call to Mbr at number [phone] and spoke with Dgtr Aileen and Mbr. Mbrs last BS was 502 at 130 pm today. Mbr asymptomatic for hyperglycemia. Denies mental status change, Urinating large amounts, excessive thirst, dry mouth, vomiting, Blurred vision, or fruity smell on breath. Dgtr states mbr is at her baseline. Mbr checked bs again while on phone with the cru rn and still 500. Offered MIH INSTED and they agreed. However instructed dgtr to call 911 and have Mbr go to ER if she presents with hyperglycemic s/s. They agreed to do. Adrián is a 78 yo female with hx of Type 2 DM, LT use of insulin, CAD, LT use of ASA, HTN, OA, adnexal mass, Vit D deficiency, UI, cervialgia and left knee pain. Had recent cortisone shot and per dgtr and Mbr her bs candida to the 200s last time she got the cortisone shot but not this high. NKDA and address and phone confirmed. ................... ................... ................... ................... ................... ................... ................... ........ [facility] Nurse Triage Notes (Roseanna Young): Chief Complaints: Diabetes Related PMH: Diabetes, Hypertension, Heart Disease Comments: HPI reviewed. No further information needed to process visit. Dyer Helper Organization Information for Richard Gutiérrez [employer] MARIANNA Crowdzu Legal Name: [employer] ? Address: [address] [place] [address], Steam Table Worker: Garrick Pate MD CLIA No.: [id number] Dyer Helper POC Test Results from Richard Gutiérrez iSTAT Chem8+ (15:36:49) Na: 137 mEq/L K: 3.8 mEq/L Cl: 105 mEq/L iCa: 1.32 mmol/L TCO2: 19 mmol/L Glu: 362 mg/dL BUN: 18 mg/dL Crea: 1.1 mg/dL Hct: 38 % Hb: 12.9 g/dL A ................... ................... ................... ................... ................... ................... ................... ........ Dyer Helper Note From Richard Gutiérrez: Pt visit for hyperglycemia. Found catalan x 4 Pt seated in chair inside her residence. Pt reports high blood sugar since early this morning. As high reading of 500, most recent 340. Pt denies all complaints. Denies any excessive urinating, thirst, n/v. Pt reports that per her insulin sliding scale she should have taken 36 units this morning but only took 24. Pt's daughter on scene who lives with Pt and helps care for the Pt diabetes. Pt reports she received a cortisone injection in her knee yesterday, reports that she routinely has high blood sugar after the injection, normally in the 300's. Upon SC arrival Pt blood sugar 360. VS as noted. [facility] contacted who asks for blood labs. Labs obtained, uploaded, [facility] contacted again. [facility] requests Pt take 10 units insulin, and SC administer 40 mg potassium PO. Orders followed as noted. PT advised to call 911 should her symptoms worsen, Pt agrees to all [facility] orders, scene cleared. ................... ................... ................... ................... ................... ................... ................... ........ Disposition: Fulfilled Susan Taylor MD [address] [facility],[address], [place], [phone], [employer] [employer] [facility] 12/29/2023 17:19:48 OBGyn Episode No OBEpisode recorded.
--- OUTSIDE RECORDS SUMMARY | 2024-06-17 13:49 | XMS_ITS | Data Portability ---
Author Organization [place] - [facility], [facility] Address [address] [place] [address] Care Team Providers Care Senior Operator Name Role Phone LUISA ORTIZ Primary Care Provider [phone] Assessment No assessment recorded. Plan of Treatment Reminders Order Date Submit Date Provider Last Modified By Organization Details Last Modified Time Details Appointments RECHECK 15 2024 09:00A M Darrell Yañez PA-C Not available Not available Not available Lab None recorded . Referral pain manageme nt referral - genicula r nerve ablation s/p L TKR 2024 025 sandra [facility], [address] [place] [address], [address], 05/28/2024 09:28:43 physical therapis t referral - Evaluate & RxCervic al Stabiliz ation Program, Cervical degenera tive disc disease, rotator cuff tendinop athy. Shoulder ROM, 2023 024 sandra Not available 11/07/2023 08:06:14 Procedures None recorded . Surgeries None recorded . Imaging XR, shoulder , 2 or more view - rm 219 2023 024 sandra [facility], [address], [place], [address], 11/07/2023 08:06:14 XR, cervical spine, 1 view 2023 024 sandra [facility], [address], [place], [address], 11/07/2023 08:06:14 Medication Orders None recorded . Patient TargetsNo targets recorded. Patient InstructionsNo instructions recorded. Reason for Referral Physical Therapist Referral for Bilateral shoulder joint pain Cervical disc degenerative disease Evaluate & RxCervical Stabilization Program, Cervical degenerative disc disease, rotator cuff tendinopathy. Shoulder ROM, Referring Physician: Rama Hutton, Orthopedic Surgery, [id number] Encounter Date: 10/22/2023 Pain Management Referral for History of left total knee replacement genicular nerve ablation s/p L TKR Referring Physician: Rama Blount, Orthopedic Surgery, Encounter Date: 05/08/2024 Results Created Date Observation Date Name Description Value Unit Range Abnormal Flag Note LastModifiedBy Organization Detail LastModifiedTime 10/22/19 24 10/22/2023 XR, cervi willy spine , 1 view [email or web address] ?Encry pted=s hAaTro YD8dLq bEUv6g %2BXZw aYqtaq 0bqfl% 2Fg9IQ a4ajBk vP9nXo QUaueC m3YtLR FvZlgJ JJ8mAn HZtai3 8g0021 AC0KpY 3iCUaT eUC8mr 84%3D INTERFACE [facility] [address], [place], [address], 10/22/2023 14:56:41 10/22/19 24 10/22/2023 XR, cervi willy spine , 1 view [email or web address] ?Encry pted=s hAaTro YD8dLq bEUv6g %2BXZw aYqtaq 0bqfl% 2Fg9IQ a4ajBk vP9nXo QUaueC m3YtLR FvZl JJ8mAn HZtai3 1s1441 AC0KpY 3iCUaT eUC8mr 84%3D INTERFACE [facility] [address], [place], [address], 10/22/2023 14:56:43 10/22/19 24 10/22/2023 XR, shoul paresh, 2 or more view [email or web address] ?Encry pted=s hAaTro YD8dLq bEUv6g %2BXZw aYqtaq 0bqfl% 2Fg9IQ a4ajBk vP9nXo QUaueC m3YtLR FvZlgJ JJ8mAn HZtai3 7a0652 AC0KpY 3iCUaf eUC8mr 84%3D INTERFACE [facility] [address], [place], [address], 10/22/2023 15:04:07 10/22/19 24 10/22/2023 XR, shoul paresh, 2 or more view [email or web address] ?Encry pted=s hAaTro YD8dLq bEUv6g %2BXZw aYqtaq 0bqfl% 2Fg9IQ a4ajBk vP9nXo QUaueC m3YtLR FvZlgJ JJ8mAn HZtai3 3a2486 AC0KpY 3iCUaf eUC8mr 84%3D INTERFACE [facility] [address], [place], [address], 10/22/2023 15:04:09 Result Notes None recorded. Problems Name Problem SNOMED Code Status Onset Date Resolution Date Notes Provider Name and Address Organization Details Recorded Time Bilateral shoulder joint pain 380378481279 08094 Active 2023 Rama Hutton PA-C [address], [place], [address] , [facility] 4 13:09:37 Neck pain 04474786 Active 2023 Rama Hutton PA-C [address], [place], [address] , [facility] 4 16:19:18 Bilateral impingeme nt syndrome of shoulders 357880885933 33190 Active 2023 Rama Hutton PA-C [address], [place], [address] , [facility] 4 16:19:21 Osteoarth ritis of right knee joint 859386363094 100 Active 2023 Rama Hutton PA-C [address], [place], [address] , [facility] 4 12:32:30 Pain of right shoulder joint 024333140119 03510 Active 2014 Problem Code: M25.511; Problem Code Type: ICD-10; Status: 'A'; Not Available [facility] 4 10:55:57 Problem Notes None recorded. Procedures Surgical History Date Name Laterality Status Provider Name and Address Organization Details Recorded Time 5 Sports Knee 4&1 completed Rama Blount PA-C [address], [place], [address], [facility] 05/08/2024 12:45:12 4 Sports Knee 4&1 completed Rama Hutton PA-C [address], [place], [address], [facility] 12/28/2023 12:32:48 4 Sports Shoulder completed Rama Hutton PA-C [address], [place], [address], [facility] 10/22/2023 16:14:47 4 Sports Knee 4&1 completed Darrell Yañez PA-C [address], [place], [address], [facility] 10/18/2023 09:08:16 Imaging Results Imaging Date Name Status LastModified by Organiz ation Details LastModified Time 10/22/2023 XR, cervical spine, 1 view completed INTERFACE [facility] [address], [place], [address], 10/22/2023 14:56:41 10/22/2023 XR, cervical spine, 1 view completed INTERFACE [facility] [address], [place], [address], 10/22/2023 14:56:43 10/22/2023 XR, shoulder, 2 or more view completed INTERFACE [facility] [address], [place], [address], 10/22/2023 15:04:07 10/22/2023 XR, shoulder, 2 or more view completed INTERFACE [facility] [address], [place], [address], 10/22/2023 15:04:09 Procedure Notes None recorded. Medical Equipment None Reported. Allergies No known drug allergies Medications Name Sig Start Date Stop Date Status Note LastModified by Organization Details LastModified Time metformin 500 mg tablet TAKE ONE TABLET BY MOUTH TWICE A DAY active Not Available Not Available No t Available atorvastati n 80 mg tablet TAKE ONE TABLET BY MOUTH EVERY DAY active Not Available Not Available No t Available torsemide 20 mg tablet TAKE ONE TABLET BY MOUTH EVERY DAY active Not Available Not Available No t Available amlodipine 5 mg tablet TAKE ONE TABLET BY MOUTH EVERY DAY active Not Available Not Available No t Available meloxicam 7.5 mg tablet TAKE ONE TABLET BY MOUTH EVERY DAY 10/21 completed Not Available Not Available Not Available OneTouch Ultra Test strips USE TO TEST BLOOD GLUCOSE BEFORE MEALS THREE TIMES A DAY 10/21 completed Not Available Not Available Not Available nitrofurant oin macrocrysta l 100 mg capsule TAKE ONE CAPSULE BY MOUTH TWICE A DAY WITH FOOD 12/27 completed Not Available Not Available Not Available methimazole 5 mg tablet TAKE ONE TABLET BY MOUTH EVERY DAY active Not Available Not Available No t Available lisinopril 30 mg tablet TAKE ONE TABLET BY MOUTH EVERY DAY active Not Available Not Available No t Available gabapentin 100 mg capsule TAKE ONE CAPSULE BY MOUTH AT BEDTIME 10/21 completed Not Available Not Available Not Available metoprolol succinate ER 25 mg tablet,exte nded release 24 hr TAKE ONE TABLET BY MOUTH TWICE A DAY active Not Available Not Available No t Available polyethylen e glycol 3350 17 gram/dose oral powder TAKE DIRECTED BY GI DEPARTMEN T AT [facility] 10/21 completed Not Available Not Available Not Available tobramycin 0.3 %-dexametha sone 0.1 % eye drops,suspe nsion INSTILL ONE DROP IN EACH EYE THREE TIMES A DAY FOR 1 WEEK THEN ONCE DAILY FOR 1 WEEK active Not Available Not Available No t Available Laxative (bisacodyl) 5 mg tablet,shawn yed release TAKE FOUR TABLETS BY MOUTH AT NOON THE DAY BEFORE YOUR COLONOSCO PY DIRECTED 10/21 completed Not Available Not Available Not Available Novolog FlexPen U-100 Insulin aspart 100 unit/mL (3 mL) subcutaneou s INJECT 8-36 UNITS UNDER THE SKIN THREE TIMES A DAY BEFORE MEALS active Not Available Not Available No t Available Lantus Solostar U-100 Insulin 100 unit/mL (3 mL) subcutaneou s pen INJECT 23 TO 27 UNITS UNDER THE SKIN DAILY active Not Available Not Available No t Available Eye Itch Relief 0.025 % (0.035 %) drops 1 DROP IN EACH EYE TWO TIMES A DAY NEEDED 10/21 completed Not Available Not Available Not Available oxycodone HCl-oxycodo ne-ASA oxyCODONE HCl 5MG Tablet 10/21 completed Statu s: 'Curr ent'; Not Available Not Available Not Available OneTouch Ultra2 Meter USE TO TEST BLOOD GLUCOSE THREE TIMES A DAY 10/21 completed Not Available Not Available Not Available OneTouch Delica Plus Lancet 30 gauge USE TO TEST BLOOD GLUCOSE BEFORE MEALS THREE TIMES A DAY 10/21 completed Not Available Not Available Not Available Paxlovid 300 mg (150 mg x 2)-100 mg tablets in a dose pack TAKE 2 NIRMATREL VIR TABLETS 300MG) ALONG WITH 1 RITONAVIR TABLET 100MG) BY MOUTH TWO TIMES DAILY FOR 5 DAYS DIRECTED 05/08 completed Not Available Not Available Not Available Vitals Date Recorded Body height Body mass index (BMI) Body weight Provider Name and Address Organization Details Last Updated DateTime 10/22/2023 162.56 cm 34.5 kg/m2 43068.07 g MAX Esquivel [place] - [facility] 10/22/2023 14:50:06 Date Recorded Body height Body mass index (BMI) Body weight Provider Name and Address Organization Details Last Updated DateTime 11/21/2023 162.56 cm 34.5 kg/m2 14956.07 g Alberta Morales [facility] 11/21/2023 15:35:24 Date Recorded Body height Body mass index (BMI) Body weight Provider Name and Address Organization Details Last Updated DateTime 12/17/2023 162.56 cm 34.5 kg/m2 73796.07 g MAX Esquivel [facility] 12/17/2023 14:54:53 Date Recorded Body height Body mass index (BMI) Body weight Provider Name and Address Organization Details Last Updated DateTime 12/28/2023 162.56 cm 34.5 kg/m2 38360.07 g MAX Esquivel [facility] 12/28/2023 13:58:34 Date Recorded Body height Body mass index (BMI) Body weight Provider Name and Address Organization Details Last Updated DateTime 05/08/2024 162.56 cm 34.5 kg/m2 20540.07 g Marianna Palencia [facility] 05/08/2024 12:59:03 Social History Question Answer Notes LastModified by Organizat ion Details LastModified Time Tobacco Smoking Status Former Smoker MAX baeza [facility] 10/22/2023 14:50:59 What Is Your Level Of Alcohol Consumption? Occasional Information not available 10/22/2023 How Many Times Per Week Do You Consume Alcohol? Less Than 1 Time Per Week Information not available 10/22/2023 When Did You Quit Smoking? 16+yearssincel astcigarette Information not available 10/22/2023 Which Of Your Hands Is Dominant? Right Information not available 10/22/2023 Have You Ever Been Counseled For Unhealthy Alcohol Use? No Information not available 10/22/2023 Do You Use Any Illicit Or Recreational Drugs? No Information not available 10/22/2023 Do You Or Have You Ever Used Any Other Forms Of Tobacco Or Nicotine? No Information not available 10/22/2023 Sex: Unknown Functional Status None recorded. Mental Status None recorded. Family History Nothing Reported. Medical History Condition Response Heart Trouble Y Diabetes Y Arthritis Y Hypertension Y Cholesterol Y Gynecological HistoryNo gynecological history recorded. Obstetrics History GPAL:G 0 P 0 0 0 0 Past Encounters Encounter ID Performer Location Encounter Start Date Encounter Closed Date Diagnosis/Indication Diagnosis SNOMED-CT Code Diagnosis ICD10 Code Diagnosis Note [id number] DAISY [facility] [address] [place] [address] 09/20/2023 11:16:09 10/18/2023 09:56:58 Pain of right knee joint 5401139343 17701 M25.561 Osteoarthr itis of right knee joint 1011686864 31256 M17.11 You have been provided with a cortisone injection in order to reduce the pain and inflammati on that you are experienci ng. The injection consists of two medication s. Cortisone (an anti-infla mmatory that will take 48-72 hours to take effect) and Lidocaine (a numbing agent that will last 2-3 hours). Please note that not everyone will have a lasting response following the injection. PATIENT INSTRUCTIO NSOnce the Lidocaine wears off, you may have an increase in your pain. I recommend icing the affected area for 20 minutes 3-4 times per day.It is recommende d that you refrain from any high level activities using the joint or limb that was injected for approximat srikanth 24-48 hours. Normal day-to-day activities are generally not a problem.PO SSIBLE SIDE EFFECTSInd ividuals with dark complexion s may experience some skin discolorat ion locally at the site of the injection. There is the possibilit y of an increase in discomfort within 48 hours following the injection. This is called a ? flare? . To help minimize the chances of this, please see the post-injec tion instructio ns above.Ther e is a less than 1% chance of an infection. If you notice any signs of infection (redness, warmth, drainage, fever greater than 100 degrees) please call our office or contact us through the portal [facility]. [id number] Rama Wilczynski , PA-C [facility] [address] [place] [address] 10/22/2023 14:39:25 11/07/2023 08:06:14 Bilateral shoulder joint pain 5889846715 3240104 M25.511 M25.512 Bilateral impingement syndrome of shoulders 9601782984 5523169 M75.41 M75.42 Neck pain 80757860 M54.2 [id number] CANDICE RAZA PA-C [place] [address] [place] [address] 11/21/2023 15:22:11 12/14/2023 13:34:29 Neck pain 23820911 M54.2 [id number] Rama Hutton PA-C [facility] [address] [place] [address] 12/17/2023 14:49:16 12/27/2023 10:13:34 Neck pain 71493670 M54.2 Bilateral impingement syndrome of shoulders 3978818850 5316987 M75.41 M75.42 [id number] Rama Hutton PA-C [facility] [address] [place] [address] 12/28/2023 13:52:50 01/10/2024 10:19:59 Osteoarthritis of right knee joint 1096495067 85416 M17.11 [id number] Rama Blount PA-C [facility] [address] [place] [address] 05/08/2024 12:37:31 05/28/2024 09:28:43 Osteoarthritis of right knee joint 3474015986 74920 M17.11 History of left total knee replacement 3427042245 093565 Z96.652 Health Concerns Section Related Observation LastModified by Organization Detai ls LastModified Time None Recorded Concern Status LastModified by Organization Details LastModified Time None Recorded Advance Directives Directive None Recorded Payers Encounter Date Sequence Insurance Name Policy Number Policy Dillard Covered Member ID Dillard Member ID Guarantor Name 10/22/2023 1 [facility] - DOS ON OR AFTER 2022 - LONG-TERM OPTIONS AND ONE CARE (MEDICARE REPLACEMENT/AD VANTAGE - PPO) Lauren Toribio Keo [id number] Lauren Toribio Crowley 11/21/2023 1 [employer] - DOS ON OR AFTER 2022 - LONG-TERM OPTIONS AND ONE CARE (MEDICARE REPLACEMENT/AD VANTAGE - PPO) Lauren Crowley [id number] Lauren Crowley 12/17/2023 1 [employer] - DOS ON OR AFTER 2022 - ONE CARE (MEDICARE REPLACEMENT/AD VANTAGE - HMO) Lauren Toribio Crowley [id number] Lauren Toribio Crowley 12/28/2023 1 [employer] - DOS ON OR AFTER 2022 - ONE CARE (MEDICARE REPLACEMENT/AD VANTAGE - HMO) Lauren Toribio Keo [id number] Lauren Crowley 05/08/2024 1 [employer] - DOS ON OR AFTER 2022 - ONE CARE (MEDICARE REPLACEMENT/AD VANTAGE - HMO) Lauren Toribio Keo [id number] Lauren Toribio Keo Notes Date Note Type Note Provider Name and Address Organization Details Recorded Time 10/22/2023 text/html I am seeing the patient today under the supervision of {{Gayathri Card* Maritza Card* Isidoro stafford}} who was available but did not see the patient. HPI: 78 y.o. right hand dominant female patient presents today for bilateral upper extremity pain and weakness that began in July, no specific injury. She was evaluated at the [facility] ED and followed up with her PCP. She reports she has tried muscle relaxers and anti-inflammatories without relief. She reports her PCP sent her for PT but she did not attend. Denies previous shoulder surgery. Pain exacerbated when lifting her arms and at night. She reports she is unable to make fists bilaterally and notes grasping weakness. She does report intermittent numbness/tingling down her bilateral upper extremities, but notes pain radiates more often down her arm. She does have neck pain. Past family, medical, social history and review of systems has been reviewed, updated and is located in the patient's chart. X-RAYS:4v x-rays of the {{Right Left Bilatera l*}} shoulders and 1v c-spine ordered, obtained and reviewed at [facility] today. Left shoulder demonstrates type II-III acromion, moderate AC joint space narrowing, mild glenohumeral joint space narrowing. Right shoulder demonstrates moderate AC joint degenerative changes, mild glenohumeral joint space narrowing, type III acromion with subacromial spur. Multiple sternal wires noted from previous heart surgery. C-spine demonstrates degenerative changes C-4-C7. IMPRESSION: 1. {{Right Left Bilatera l*}} shoulder rotator cuff tendinopathy 2. CervicalgiaPLAN: Findings reviewed. Discussed her pain appears to be multifactorial in nature, discussed this may also be related to her c-spine or hand arthritis. Discussed conservative treatment as an appropriate initial option. She elected to proceed with a diagnostic and therapeutic right shoulder cortisone injection today, discussed to keep a symptom log of what this does or does not relive. Discussed this will increase her sugar, she will monitor this closely. PT prescription provided focused on cervical stabilization, trigger point release, shoulder ROM. Follow up in 8-10 weeks for recheck. Scheduled tentative c-spine evaluation as they are booking out, we may cancel if not needed. All of her concerns are addressed and she understands and agrees with the plan. Speech recognition blue print control clerk software was used to create portions of this document. An attempt at proofreading has been made to minimize errors. Please call for corrections. Rama Hutton PA-C [address] [place] [address] Suite [facility], [place], [address], [facility] 10/22/2023 16:29:23 11/21/2023 text/html I am seeing the patient today under the supervision of Dr. Carpio who was available but who did not see the patient. HPI: Patient is a pleasant 78-year-old female who presents for evaluation of ongoing neck pain. And bilateral radiating shoulder and arm pain that began sometime in July but has no significant recollection of any mechanism of injury. She was most recently seen in our office by Rama Hutton PA-C was treated with a corticosteroid injection into the right shoulder and given a formal physical therapy referral for cervical spine stabilization rotator cuff strengthening. Patient reports today in follow-up but she is doing significantly better since her injection at her last appointment she has had no neck pain throughout this process she reports day 2 after her shoulder injection she had a significant relief of pain and started doing an upper arm bike and lower extremity biking which has significantly decreased her pain. She endorses she still has some stiffness in bilateral wrists but no other radicular symptoms. TREATMENTS: As noted in HPIPast family, medical, social history and review of systems has been reviewed, updated and signed by me and is located in the patient??s chart. Examination: The patient is well appearing, alert and oriented x3 and in no acute distress. Gait is antalgic. Patient is able to transition from seated to standing position without difficulty.Inspection of the spine reveals no step off, deformity or overlying skin changes or atrophy.The spine is nontender over the paravertebral musculature. Nontender over the upper trapezius and SCM.Range of motion of the cervical spine is 80% of normalRange of motion of the shoulder is full without discomfort.Strength in all upper extremity myotomes 5/5 bilaterally.Sensation intact.Celaya's sign negative. X-rays ordered, obtained and reviewed at [facility], 2 views of the cervical spine reveals no fractures, instability or bony lesions. Degenerative disc disease noted Most pacifically at the levels of C4-C6 with notable endplate spurring. Diffuse facet arthropathy. Impression/Plan: Painless cervical degenerative disc disease and arthritis. Discussed with the patient today that since the corticosteroid injection into her right shoulder was curative for her pain that the pain and symptoms are likely not coming from her neck. We discussed at this time she does not need formal follow-up with myself we also discussed she has a follow-up coming up with the PA she saw for her shoulder and should keep that appointment as needed. Patient expressed understanding agree with plan. All other questions asked and answered. In the future if patient has any neck pain and radicular symptoms that do not resolve with corticosteroid injection or treatment for her shoulder she was encouraged to ensure she follows up with one of our spine providers or myself. [employer] speech recognition blue print control clerk software was used to create portions of this document. An attempt at proofreading has been made to minimize errors. Please call for corrections. CANDICE RAZA PA-C [address] [place] [address] [address] [facility], [place], [address], [facility] 11/21/2023 16:00:31 12/17/2023 text/html I am seeing the patient today under the supervision of {{Gayathri Card* Maritza Card* Isidoro nydia}} who was available but did not see the patient. CLINICAL UPDATE: 78 y.o. right hand dominant female patient presents today for bilateral shoulder/neck recheck. Last cortisone injection 10/22/23 right shoulder provided patient with excellent relief. She denies any left shoulder pain. Denies neck pain. She did not attend any physical therapy. HPI: Presented with bilateral shoulder pain 10/22/23 with bilateral shoulder/neck pain that began in July, no specific injury. She was evaluated at the [facility] ED and followed up with her PCP. She reports she has tried muscle relaxers and anti-inflammatories without relief. She reports her PCP sent her for PT but she did not attend. Denies previous shoulder surgery. Pain exacerbated when lifting her arms and at night. She reports she is unable to make fists bilaterally and notes grasping weakness. She does report intermittent numbness/tingling down her bilateral upper extremities, but notes pain radiates more often down her arm. She does have neck pain. Past family, medical, social history and review of systems has been reviewed, updated and is located in the patient's chart. X-RAYS:Previous 4v x-rays of the {{Right Left Bilatera l*}} shoulders and 1v c-spine reviewed at [facility] today. Left shoulder demonstrates type II-III acromion, moderate AC joint space narrowing, mild glenohumeral joint space narrowing. Right shoulder demonstrates moderate AC joint degenerative changes, mild glenohumeral joint space narrowing, type III acromion with subacromial spur. Multiple sternal wires noted from previous heart surgery. C-spine demonstrates degenerative changes C4-C7. IMPRESSION: 1. {{Right Left Bilatera l*}} shoulder impingement 2. cervical denegerative disc disease- improvedPLAN: Findings reviewed. Discussed her pain appears to be multifactorial in nature. Discussed conservative treatment as an appropriate initial option. Patient reports most bothersome is her right knee pain, we will schedule her for cortisone injection that helped this previously. Follow-up 3 months from her last right shoulder cortisone injection for recheck. Discussed proper lifting mechanics and trying to avoid heavy lifting. All of her concerns are addressed and she understands and agrees with the plan. Speech recognition blue print control clerk software was used to create portions of this document. An attempt at proofreading has been made to minimize errors. Please call for corrections. [address], [place], [address], [place] - [facility] 12/17/2023 15:11:48 12/28/2023 text/html I am seeing the patient today under the supervision of {{Gayathri Henry* [employer]}} who was available but who did not see the patient. HPI:Patient presents today follow-up regarding their {{Left Right* Bilater al}} knee. Previous injection 09/20/23 gave good relief until recent. Oyqt-kxr-jfmvmcu medications are helping somewhat but not significantly. Pain is constant aching sometimes sharp pain with giving out sensations. Past family, medical, social history and review of systems has been reviewed, updated and is located in the patient? s chart. Examination:The patient is well appearing and in no apparent distress. Alert and oriented x3. Gait is symmetric. Examination of the {{Left Right* Bilater al}} knee reveals no evidence of any edema, erythema, or warmth. No Deformity. Range of motion of the knee limited with mild discomfort at the end ranges. Mild effusion. Does have some tenderness to palpation about the medial hemijoint line. No tenderness to palpation about the lateral hemijoint line. Patellofemoral crepitus is noted. Negative Evaristo? s. Calf is supple and nontender. Neurovascularly intact distally. Impression:{{Left Rig ht* Bilateral}} Knee osteoarthritis Plan:We discussed the role of conservative management including medications, physical therapy, injection and bracing. At this point the patient elected to proceed with repeat right knee cortisone injection. Please see procedure note. They will follow up with us as scheduled. All of their concerns were addressed and they understand and agree with the plan. Speech recognition blue print control clerk software was used to create portions of this document. An attempt at proofreading has been made to minimize errors. Please call for corrections. Rama Hutton PA-C [address] [facility] [address], [place], [address], [place] - [facility] 12/28/2023 14:05:35 05/08/2024 text/html I am seeing the patient today under the supervision of {{Gayathri Salas* Carl Aguilar}} who was available but who did not see the patient. HPI:Patient presents today follow-up regarding their {{Left Right* Bilater al}} knee. Previous injection 12/28/23 gave good relief until recent. Znav-oxq-fnawmgz medications are helping somewhat but not significantly. Pain is constant aching sometimes sharp pain with giving out sensations. She also reports ongoing left knee pain after several total knee arthroplasty surgeries. She reports her last left knee surgery was performed at the [facility] in [place]. She had a left total knee arthroplasty with Dr. Noriega in 2013. She has had elevated inflammatory markers previously with negative aspirations in our office. She reports she has not call her surgeon in [place] and doesn't want to discuss more surgery. Past family, medical, social history and review of systems has been reviewed, updated and is located in the patient? s chart. Examination:The patient is well appearing and in no apparent distress. Alert and oriented x3. Gait is antalgic. Examination of the {{Left Right* Bilater al}} knee reveals no evidence of any edema, erythema, or warmth. Range of motion of the knee limited with mild discomfort at the end ranges. Mild effusion. Does have some tenderness to palpation about the medial hemijoint line. Patellofemoral crepitus is noted. Calf is supple and nontender. Neurovascularly intact distally. Left knee: Significant atrophy of the distal quadriceps tendon, able to perform a straight leg raise. Large anterior knee incision appears well-healed, no drainage, no erythema, no ecchymosis. Diffuse tenderness to palpation about the knee even to light touch. Minimal effusion. Calf is soft nontender. Impression:{{Left Rig ht* Bilateral}} Knee osteoarthritis Plan:We discussed the role of conservative management including medications, physical therapy, injection and bracing. At this point the patient elected to proceed with repeat right knee cortisone injection. Please see procedure note. They will follow up with us as scheduled. Regarding her left knee, recommended she call her surgeon in [place] as they performed her last total knee arthroplasty. I will submit a task to total triage if she would like to speak with one of our surgeons about this and have evaluation. In the meantime, recommended referral for genicular nerve ablation. All of their concerns were addressed and they understand and agree with the plan. Speech recognition blue print control clerk software was used to create portions of this document. An attempt at proofreading has been made to minimize errors. Please call for corrections. Rama Blount PA-C [address] [facility] [address], [place], [address], [facility] - [facility] 05/08/2024 13:24:42 OBGyn Episode No OBEpisode recorded.
--- OUTSIDE RECORDS SUMMARY | 2024-06-17 13:49 | XMS_ITS ---
Author Organization [facility] Address [address] [place] [address] Care Team Providers Care Membership Director Name Role Phone Ry Soriano Primary Care Provider UnavailClive Angulo Unavailable [phone] Allergies Allergen (clinical drug ingredient) Drug/Non Drug [...] Type 2 diabetes mellitus with peripheral angiopathy (460064461) Type 2 diabetes mellitus with diabetic peripheral angiopathy without gangrene (E11.51) Active confirmed Q7(A), Q8(2B), Q9(1B,2C) Problem Plantar wart (00121697) Plantar wart (B07.0) Active confirmed Problem Acquired hammer toe of right foot (5265417557943 105) Other hammer toe(s) (acquired), right foot (M20.41) Active confirmed Problem Acquired hammer toe of left foot (9657679784716 103) Other hammer toe(s) (acquired), left foot (M20.42) Active confirmed Vital Signs Height 5ft 5in in 03/05/2024 Weight 200 lbs 03/05/2024 BMI 33.28 kg/m2 03/05/2024 Procedures Procedure Date Ordered Date Performed Result Body Sit e 70803-HQDINIM NAIL, 6 OR MORE 03/05/2024 N/A 17481-Kysz Destruction, 1-14 03/05/2024 N/A 48468-JVYM SKIN LESIONS, OVER 4 03/05/2024 N/A Encounters Encounter Location Date Provider Diagnosis [facility] [place] [address] [address] 03/05/2024 Clive Vilchis Type 2 diabetes mellitus [...] INSTRUCTIONS.pdf) Pending Test Test Name Order Date 21227-LAQZHNX NAIL, 6 OR MORE 03/05/2024 66053-Tfjc Destruction, 1-14 03/05/2024 00577-NITM SKIN LESIONS, OVER 4 03/05/20 24 Next Appt Details Follow Up: 2 Months, Reason: Provider Name:Clive Vilchis , 08/21/2024 10:45:00 AM, [address] [facility], [address], [place], [address], Procedure Notes * Category Sub-Category Detail Notes Wart Treatment Procedure Verruca, as desc ribed in exam, were debrided to pin-point bleeding margins with sterile 15 surgical blade, silver nitrate chemocautery applied, recomm. immune-boosting meds such as zinc, recomm. follow up with topical chemosurgical agents, Pt defers any other forms of tx - 13732 Debride Nail 6-10 Nail debridement Performance o f this nail treatment by a nonprofessional would put this patients foot and overall health at risk. Therefore, debridement to affected nail(s), as described in exam, was performed extensively to reduce/remove overall nail length, girth, thickness, subungual debris, and necrotic tissue, by manual and/or electrical means through the use of a nail nipper and/or dremel-type liquor grinder mill operator, to a more viable healthy nail plate [...] to maintain effectiveness in symptomatic relief - 69011 Keratoma Treatment Parring or Cutting o f Benign Hyperkeratotic Lesion(s) (-57) More than 4 Lesions - The Benign hyperkeratotic lesions, ( 8) in total, locations as stated and described in exam, were pared, and/or cut utilizing a sterile 15 blade, tissue nippers, and/or power dremel instrumentation - 65556, Q8 Progress Notes * Lauren CROWLEY BDOB:1945 ( 78 yo F)Acc No.[id number]:03/05/2024 Progress Note Patient:?BALBINALauren Provider:?Clive Vilchis DPM :1945???Age:78 Y???Sex:Female D ate:03/05/2024 Address:[address] [place], [place] [id number] Pcp:Ry Soriano Subjective: * Chief Complaints: * ???At Risk FootcarePainful N ail(s) aggravated by shoes and causing difficulty standing/walkingWart(s)Toe Irritation * HPI: ???At Risk footcare:?Pt States Last PCP Visit:?Date?02/13/2024 ???Toe pain:?Location:?B/L feet.?Duration:?several years.?Course:?worse.?Aggravated by:?shoes, any pressure.?Treatments:?change in shoes.? * ROS:?General/Constitutional:?Nausea?denies.?Vomiting?denies.?Hunger Thirst?denies.?Loss appetite?denies.?Chills?denies.?Fatigue?denies.?Fever?denies.?Night Sweats?denies.?Unexplained weight loss?denies.?Unexplained weight gain?denies.?HEENTM:?Dentures?denies.?Dizziness?denies.?Glasses/contacts?admits.?Retinopathy?den ies.?Blurred/double vision?denies.?TMJ?denies.?Discharge/drainage?denies.?Implants?denies.?Sore throat?denies.?Dental implants?denies.?Hard of hearing ?denies.?Difficulty chewing/swallowing/speaking?denies.?Nose bleeds?denies.?Sore mouth?denies.?Respiratory:?On O xygen?denies.?Pneumonia/pleurisy?denies.?Bronchitis?denies.?Emphysema?denies.?Co ughing?denies.?Cough blood?denies.?Shortness of breath?denies.?Wheezing?denies.?Cardiovascular:?Pacemaker?denies.?MVP?denies.?WPW?denies.?CHF?denies.?Heart attack?denies.?Septal defect?denies.?Rapid beat?denies.?Chest pain ?denies.?Atrial Fib.?denies.?Murmur/Palpitations?denies.?Gastrointestinal:?Hemorrhoids?denies.?Stomach/Abdominal pain?denies.?Dark blood stool?denies.?Irritable bowel ?denies.?Constipation?denies.?Diarrhea?denies.?Hematology:?Swelling?denies.?Clots?denies.?Varicose Veins?denies.?Bruising?denies.?Bleeding problem?denies.?Genitourinary:?Blood urine?denies.?Frequent/Painfu/urination/bladder control?denies.?Kidney stones?denies.?Infection (UTI)?denies.?Nephropathy?denies.?sex trans dis (STD)?denies.?Prostate?denies.?Musculoskeletal:?Hammertoes?admits.?Bunions?denies.?Back Pain?denies.?Muscle Cramps/ Resting?denies.?Muscle cramps / walking?denies.?Generalized aches and pains?denies.?Weakness?denies.?Integ.:?Rodgers?denies.?Scars?denies.?Corns/calluses?admits.?Ingrown nails?admits.?Painful nails?admits.?Open Sores?denies.?Rashes?denies.?Neurologic:?Difficulty sleeping?denies.?Brain disorder?denies.?Numbness?denies.?Balance t rouble?denies.?Confusion?denies.?Fainting/blackouts?denies.?Tingling?denies.?Gunner mors?denies.? * Medical History:? * Surgical History:?triple byp [...] with cerebral infarction.? * Social History:?Tobacco Use:?Tobacco use other than smoking?Are you an other tobacco user??No ?Tobacco Control (Standard)?Tobacco use:?Nonsmoker ?Additional Findings: Tobacco non-user?Current nonsmoker ???Drugs/Alcohol:?Drugs?Have you used drugs other than those [...] BS: 200, Wt-k.72 kg. * ???Past Orders: Lab:HEMOGLOBIN A1C (GLYCOHEM OGLOBIN) * Collection Date 06/15/2023 05/03/2023 Collection Time 03:03 PM Order Date 05/03/2023 06/15/2023 HEMOGLOBIN A1C % (HH) 7.0 NR HEMOGLOBIN A1C (HH) NR 7.0 * Examination: ???Ophthalmology Referral: ?DIABETES EYE EXAM?Procedure Performed:?Yes ?Date of Exam Performed?03/03/2024 ?Diabetic Retinopathy Screening:?Yes ?Retinal Screening Performed:?Yes ?Findings of Diabetic Eye Exam:?no retinopathy?Vascular: ?DP PULSES (B):? 0/4, B/L.?PT PULSES (B):? 0/4, B/L.?CAPILLARY FILL TIME:? delayed, all digits, B/L.?TROPHIC CONDITION-TEXTURE/ELASTICITY/TURGOR/HAIR GROWTH (B):? decreased, fragile, thin, shiny, with sparse to absent hair growth, B/L.?TEMPERTURE GRADIENT (C):? decreased, cool to cool, proximal to distal, B/L.?PIGMENTATION:?mottled, B/L.?EDEMA (C):?absent, B/L.?CLAUDICATION (C):?denies, B/L.?REST PAIN:?denies, B/L.?PARESTHESIA (C):?absent, B/L.?BURNING (C):?absent, B/L.?Nails: ?NAILS are:?Elongated, overgrown, dystrophic, lytic, greater [...] B/L, Pt denies, anesthesia, burning, paresthesia, tingling, B/L.?General Examination: ?GENERAL APPEARANCE:?Reveals a pleasant, alert, well nourished, well- developed, well hydrated individual, who demonstrates proper attention to hygiene/body habitus, and is in no acute distress, Pt serves as own historian for office visit today.?ORIENTED:?person, place, and time.?FOOT EXAM:?Lower Extremity Neurological Exam performed:?Yes ?Visual exam of foot performed:?Yes ?Date?03/05/2024 ?Footwear Evaluation?Footwear Evaluation performed:?Yes??? Assessment: * Assessment: 1.?Type 2 diabetes mellitus [...] mellitus with diabetic peripheral angiopathy without gangrene?Procedure: 19881-KSWM SKIN LESIONS, OVER 4 3.?Tinea unguium?Procedure: 13617-PHWVCLG NAIL, 6 OR MORE 4.?Other hammer toe(s) [...] use of a nail nipper and/or dremel-type liquor grinder mill operator, to a more viable healthy nail plate [...] to maintain effectiveness in symptomatic relief - 56415.?Keratoma Treatment:?Parring or Cutting of Benign Hyperkeratotic Lesion(s)?(-57) More than 4 Lesions - The Benign hyperkeratotic lesions, ( 8) in total, locations as stated and described in exam, were pared, and/or cut utilizing a sterile 15 blade, tissue nippers, and/or power dremel instrumentation - 12517, Q8.?Wart Treatment:?Procedure?Verruca, as described in exam, were debrided to pin-point bleeding margins with sterile 15 surgical blade, silver nitrate chemocautery applied, recomm. immune-boosting meds such as zinc, recomm. follow up with topical chemosurgical agents, Pt defers any other forms of tx - 75367.? * Procedure Codes:?51785 DEBRI DE NAIL, 6 OR MORE, Modifiers: XS 30922 Wart Destruction, 1-14, Modifiers: XS 28250 TRIM SKIN LESIONS, OVER 4, Modifiers: XS [...] pair of custom heat-molded inserts was dispensed.? ??Screening/Special Tests:?Fall Risk?Screening:?No falls in the past year ?FALLS: Screening for Future Fall Risk?Have you had any falls with injury in the past year??No * Follow Up:?2 Months * Images: * Sign off status: Completed true * Provider:Poonam Vilchis DPM Date:?2023 Generated for Ollie lea/Neida/Cammy on:?06/17/2024 01:49 PM EDT History and Physical Notes * HPI (History [...] Lower Extremity Neurological Exa m performed:: Yes Visual exam of foot performed:: Yes Date: 03/05/2024 ORIENTED: person, place, and t yoshi Footwear Evaluation Footwear Evaluation performe d:: Yes Ophthalmology Referral DIABETES EYE EXAM Procedure Perform ed:: Yes ?Date of Exam Performed: 03/03/2024 Diabetic Retinopathy Screening:: Yes Retinal Screening Performed:: Yes Findings [...]
--- OUTSIDE RECORDS SUMMARY | 2024-06-17 13:50 | XMS_ITS ---
Author Name [facility] Organization Unknown Encounters Encounter Type Encounter Reason Primary Diagnosis Location Date Ambulatory [facility] [place] 08/01/2023 Ambulatory [facility] [place] 08/01/2023
--- OUTSIDE RECORDS SUMMARY | 2024-06-17 13:50 | XMS_ITS ---
Author Organization [facility] Address [address] [facility] [address] Care Team Providers Care Card Table Attendant Name Role Phone Ry Soriano Primary Care Provider Clive Cardoso Unavailable [phone] Allergies Allergen (clinical drug ingredient) Drug/Non Drug Allergy documented on EMR Reaction Allergy Type Onset Date Status Adhesive per pt no allergy Allergy Active REASON FOR VISIT At Risk Footcare, Painful Nail(s) aggravated by shoes and causing difficulty standing/walking, Wart(s), Skin Problem Medications Medication SIG (Take, Route, Frequency, Duration) [...] Wear Daily for 365 days 03/05/2024 Active Vitamin D3 Active Aspir-81 Active Ciclopirox Olamine 0.77 % 1 application Externally Twice a day to skin of feet including between the toes for 30 days Active Torsemide 20 MG as directed Orally [...] Additional Findings: Tobacco non-user Current no nsmoker Vital Signs Height 5ft 5in in 06/02/2024 Weight 200 lbs 06/02/2024 BMI 33.28 kg/m2 06/02/2024 Blood pressure systolic 131 mm Hg 06/03/19 25 Blood pressure diastolic 64 mm Hg 025 Procedures Procedure Date Ordered Date Performed Result Body Sit e 05075-XNYPYJM NAIL, 6 OR MORE 06/02/2024 N/A 58182-Zlnr Destruction, 1-14 06/02/2024 N/A 17943-FZYI SKIN LESIONS, OVER 4 06/02/2024 N/A Encounters Encounter Location Date Provider Diagnosis [facility] [address] [address] 06/02/2024 Clive Vilchis Type 2 diabetes mellitus with diabetic peripheral angiopathy without gangrene E11.51 ; Plantar wart B07.0 ; Tinea unguium B35.1 ; Pain in right toe(s) M79.674 ; Pain in left toe(s) M79.675 ; Right foot pain M79.671 and Tinea pedis of both feet B35.3 Assessments Encounter Date Diagnosis (ICD Code) Assessment Notes Treatment Notes Treatment Clinical Notes Section Notes 06/02/2024 Type 2 diabetes mellitus with diabetic peripheral angiopathy without gangrene (ICD-10 - E11.51) Q7(A), Q8(2B), Q9(1B,2C) 06/02/2024 Plantar wart (ICD-10 - B07.0) 06/02/2024 Tinea unguium (ICD-10 - B35.1) 06/02/2024 Pain in right toe(s) (ICD-10 - M79.674) 06/02/2024 Pain in left toe(s) (ICD-10 - M79.675) 06/02/2024 Right foot pain (ICD-10 - M79.671) 06/02/2024 Tinea pedis of both feet (ICD-10 - B35.3) 06/02/2024 Other Plan Of Treatment Medication Medication Name Sig Start Date Stop Date Notes Ciclopirox Olamine 0.77 % 1 application Externally Twice a day to skin of feet including between the toes for 30 days Pending Test Test Name Order Date 53047-PUDEQZL NAIL, 6 OR MORE 06/02/2024 00566-Itmu Destruction, 1-14 06/02/2024 23124-PXUO SKIN LESIONS, OVER 4 06/03/19 25 Next Appt Details Follow Up: 2 Months, Reason: Provider Name:Clive Vilchis , 08/21/2024 10:45:00 AM, [address] [facility], [address], [place], [address], Procedure Notes * Category Sub-Category Detail Notes Wart Treatment Procedure Verruca, as desc ribed in exam, were debrided to pin-point bleeding margins with sterile 15 surgical blade, silver nitrate chemocautery applied, recomm. immune-boosting meds such as zinc, recomm. follow up with topical chemosurgical agents, Pt defers any other forms of tx - 73187 Debride Nail 6-10 Nail debridement Due to the cl inical pathology outlined in the exam findings, performance of this nail treatment is medically necessary as its management by an unskilled/untrained nonprofessional would put this patients foot and overall health at risk. Therefore, debridement to affected nail(s), as described in exam ( TA, T1, T2, T3, T4, T5, T6, T7, T8, T9 ), was performed exclusively by the physician of record to reduce/remove overall nail length, girth, thickness, subungual debris, and necrotic tissue, by manual and/or electrical means through the use of a nail nipper and/or dremel-type grinder operator tool, to a more viable healthy nail plate [...] to maintain effectiveness in symptomatic relief - 10865 Keratoma Treatment Parring or Cutting o f Benign Hyperkeratotic Lesion(s) (-57) More than 4 Lesions - Due to the at risk nature of the patients medical condition as documented in the exam findings, performance of this keratoderma treatment is medically necessary as its management by an unskilled/untrained nonprofessional would put this patients foot and overall health at risk. Therefore, the benign hyperkeratotic lesions, ( 8 ) in total, locations as stated and described in the exam ( Plantar, IPJ, TA, Plantar, IPJ, T5, SUB MTH (s), 1, B/L, SUB MTH (s), 5, B/L, Plantar Heel(s), B/L ), were pared, and/or cut utilizing a sterile 15 blade, tissue nippers, and/or power dremel instrumentation by the physician of record - 69868, Q8 Progress Notes * Lauren CROWLEY BDOB:1945 ( 78 yo F)Acc No.[id number]:06/02/2024 Progress Note Patient:?BALBINA Lauren Toribio Provider:?Clive Vilchis DPM :1945???Age:78 Y???Sex:Female D ate:06/02/2024 Address:[address] [place], [place] [id number] Pcp:Ry Soriano Subjective: * Chief Complaints: * ???At Risk FootcarePainful N ail(s) aggravated by shoes and causing difficulty standing/walkingWart(s)Skin Problem * HPI: ???At Risk footcare:?Pt States Last PCP Visit:?Date?02/13/2024 ???Toe pain:?Treatments:?Rx shoes, states still needs?.?Skin problems:?Nature:?scaling , redness.?Location:?B/L .?Duration:?several days.?Course:?worse.? * ROS:?General/Constitutional:?Nausea?denies.?Vomiting?denies.?Hunger Thirst?denies.?Loss appetite?denies.?Chills?denies.?Fatigue?denies.?Fever?denies.?Night Sweats?denies.?Unexplained weight loss?denies.?Unexplained [...] of unspecified site.? * Social History:?Tobacco Use:?Tobacco use other than [...] with a meal Orally Once a day Extra Depth Orthopedic Shoes, (1) Pair With (3) Pair Custom Heat Molded Multidensity Innersoles . Dx: NIDDM/PVD(E11.51), Hammertoe Foot Deformity(M20.41,M20.42), Preulcerative Skin Lesion(s)(L85.1) Wear Daily Medication List reviewed and reconciled with the [...] with a meal Orally Once a day Taking Extra Depth Orthopedic Shoes, (1) Pair With (3) Pair Custom Heat Molded Multidensity Innersoles . Dx: NIDDM/PVD(E11.51), Hammertoe Foot Deformity(M20.41,M20.42), Preulcerative Skin Lesion(s)(L85.1) Wear Daily Medication List reviewed and reconciled with the patient * Allergies:?Adhesive: per pt no allergyyes[Allergies Verified] Objective: * Vitals:?Ht: 5ft 5in, Wt: 200 , BMI: 33.28, Shoe size: 11, BP: 131/64 mm Hg, BS: 130, Wt-k.72 kg. * ???Past Orders: ???Lab:HEMOGLOBIN A1C (GLYCO HEMOGLOBIN) (Order Date - 02/04/2024) (Collection Date & Time - 02/06/2024 10:07 AM) ? Value Reference Range ?HEMOGLOBIN A1C % (HH) 7.0 * Examination: ???Ophthalmology Referral: ?DIABETES EYE EXAM?Procedure Performed:?Yes ?Date of Exam Performed?03/03/2024 States next appt soon - 06/23?Diabetic Retinopathy Screening:?Yes ?Retinal Screening Performed:?Yes ?Findings of [...] crumbly malodorous subungual debris, with pain on palpation , TA, T1, T2, T3, T4, T5, T6, T7, T8, T9.?Dermatologic: ?SKIN FINDINGS:?Skin exam reveals Keratotic lesion(s) located at, Plantar, IPJ, TA, Plantar, IPJ, T5, SUB MTH (s), 1, B/L, SUB MTH (s), 5, B/L, Plantar Heel(s), B/L , Skin shows sign(s) of, erythema, scaling, in a moccasin fashion, no fissure(s) present, B/L.?VERRUCA:?Reveals Multiple ( 2), multi-loculated , mosaic-patterned, round, raised, flat-topped, petechial bleeding papule(s), with cauliflower appearance and interruption of skin lines, with pain to lateral compression, and size estimated at 2-3mm diameter, each,?plantar Forefoot, RIGHT.? Assessment: * Assessment: 1.?Type 2 diabetes mellitus with diabetic peripheral angiopathy without gangrene - E11.51???Notes :Q7(A), Q8(2B), Q9(1B,2C)???2.?Plantar wart - B07.0 (Primary)???Specify :RIGHT???3.?Tinea unguium - B35.1???4.?Pain in right toe(s) - M79.674???5.?Pain in left toe(s) - M79.675???6.?Right foot pain - M79.671???7.?Tinea pedis of both feet - B35.3???Specify :Acute problem, Uncomplicated (3),Rx drug management (4)??? Plan: * Treatment: 2.?Type 2 diabetes mellitus with diabetic peripheral angiopathy without gangrene?Procedure: 66626-ZWTM SKIN LESIONS, OVER 4 3.?Tinea unguium?Procedure: 48936-JADMPPY NAIL, 6 OR MORE 4.?Tinea pedis of both feet? Start Ciclopirox Olamine Cream, 0.77 %, 1 application, Externally, Twice a day to skin of feet including between the toes, 30 days, 120, Refills 3.?? * Procedures:?Debride Nail 6-10:?Nail debridement?Due to the clinical pathology outlined in the exam findings, performance of this nail treatment is medically necessary as its management by an unskilled/untrained nonprofessional would put this patients foot and overall health at risk. Therefore, debridement to affected nail(s), as described in exam (?TA, T1, T2, T3, T4, T5, T6, T7, T8, T9?), was performed exclusively by the physician of record to reduce/remove overall nail length, girth, thickness, subungual debris, and necrotic tissue, by manual and/or electrical means through the use of a nail nipper and/or dremel-type grinder operator tool, to a more viable healthy nail plate or bed tissue 6- 10 nails in total. Silver nitrate was used for any petechial bleeding as necessary. Definitive antifungal treatment options, both pharmaceutical and surgical, have been reviewed and discussed with the patient. The patient solely prefers the use of intermittent/as needed professional debridement services for their nail condition and understands the need for additional periodic treatments to maintain effectiveness in symptomatic relief - 56031.?Keratoma Treatment:?Parring or Cutting of Benign Hyperkeratotic Lesion(s)?(-57) More than 4 Lesions - Due to the at risk nature of the patients medical condition as documented in the exam findings, performance of this keratoderma treatment is medically necessary as its management by an unskilled/untrained nonprofessional would put this patients foot and overall health at risk. Therefore, the benign hyperkeratotic lesions, ( 8 ) in total, locations as stated and described in the exam (?Plantar,?IPJ,?TA,?Plantar,?IPJ,?T5,?SUB MTH (s),?1,?B/L,?SUB MTH (s),?5,?B/L,?Plantar Heel(s),?B/L?), were pared, and/or cut utilizing a sterile 15 blade, tissue nippers, and/or power dremel instrumentation by the physician of record - 52261, Q8.?Wart Treatment:?Procedure?Verruca, as described in exam, were debrided to pin-point bleeding margins with sterile 15 surgical blade, silver nitrate chemocautery applied, recomm. immune-boosting meds such as zinc, recomm. follow up with topical chemosurgical agents, Pt defers any other forms of tx - 85994.? * Procedure Codes:?65466 DEBRI DE NAIL, 6 OR MORE, Modifiers: XS 29748 Wart Destruction, 1-14, Modifiers: XS 00845 TRIM SKIN LESIONS, OVER 4, Modifiers: XS , Q8 * Preventive Medicine:? ??Counseling:?Discussion:?-13: Office or other [...] have encouraged the patient to call the office.?Tinea Pedis:?The patient was counseled on the diagnosis, potential etiologies, and treatment options for their skin condition. We discussed the risks and benefits of each option from performing no treatment, to utilizing OTC topical skin creams, prescription topical creams, customized compounded topical medications, and, if necessary, to utilize oral antifungal therapy. We discussed the advantages and disadvantages of each possible treatment and importance for adherence to all the recommended therapies for optimum success and avoid potential complications such as open sore/infection/possible hospitalization. We discussed the potential effectiveness of each topical preparation as well as each ones possible side effects and/or patient medication interactions if oral therapy is selected. Patient questions re: the advantages and disadvantages of each treatment choice, medication use/dosage, successful outcomes, and application consistency were reviewed and the patient verbalized that all answers were clearly understood. The patient was told they can help alleviate symptoms by utilizing moisture absorbant innersoles with activated charcoal and baking soda, applying antifungal sprays daily, aerating toe web spaces at night by putting cotton or lambs wool between the toes, alternating shoe gear daily if possible so they can dry out, changing socks at least once during the day, wearing well-ventilated shoes or sandals. The patient has decided to apply antifungal skin creams to their feet as directed. Rx was sent to their pharmacy at the time of visit.? ??Screening/Special Tests:?Fall Risk?Screening:?No falls in the past year ?FALLS: Screening for Future Fall Risk?Have you had any falls with injury in the past year??No * Follow Up:?2 Months * Images: * Sign off status: Completed true * Provider:?Clive Vilchis DPM Date:?2024 Generated for Ollie lea/Neida/Cammy on:?06/17/2024 01:49 PM EDT History and Physical Notes * HPI (History of Present Illness) Category Sub-Category Detail Notes Category Not es Toe pain Treatments: Rx shoes, states still needs Skin problems Nature: scaling , redness Location: B/L Duration: several days Course: worse At Risk footcare Pt States Last PCP Visit: Date: 4 Examination Category Sub-Category Detail Notes Category Not es Dermatologic SKIN FINDINGS: Skin exam reveal s Keratotic lesion(s) located at, Plantar, IPJ, TA, Plantar, IPJ, T5, SUB MTH (s), 1, B/L, SUB MTH (s), 5, B/L, Plantar Heel(s), B/L , Skin shows sign(s) of, erythema, scaling, in a moccasin fashion, no fissure(s) present, B/L VERRUCA: Reveals Multiple ( 2 ), multi-loculated , mosaic-patterned, round, raised, flat-topped, petechial bleeding papule(s), with cauliflower appearance and interruption of skin lines, with pain to lateral compression, and size estimated at 2-3mm diameter, each, plantar Forefoot, RIGHT Ophthalmology Referral DIABETES EYE EXAM Procedure Perform ed:: Yes ?Date of Exam Performed: 03/03/2024 Stat es next appt soon - 06/23? Diabetic Retinopathy Screening:: Yes Retinal Screening Performed:: [...] crumbly malodorous subungual debris, with pain on palpation , TA, T1, T2, T3, T4, T5, T6, T7, T8, T9
--- OUTSIDE RECORDS SUMMARY | 2024-06-17 13:50 | XMS_ITS ---
Author Organization [facility] Address [address] [place] [address] Care Team Providers Care Agency Service Representative Name Role Phone Ry Soriano Primary Care Provider UnavailClive Angulo Unavailable [phone] Enzo Jeffers Unavailable [phone] Allergies Allergen (clinical drug ingredient) Drug/Non Drug [...] 12/07/2023 Encounters Encounter Location Date Provider Diagnosis [facility] [place] [address] [place] [phone] 12/07/2023 Enzo Jeffers Type 2 diabetes mellitus [...] Month s, Reason: Provider Name:Clive Vilchis , 08/21/2024 10:45:00 AM, [address] [facility] [place] [address], [place], [address], Procedure Notes * Category Sub-Category Detail Notes Wart Treatment Procedure Verrucae(s) were debrided to pin-point bleeding margins with sterile surgical blade (22252), silver nitrate chemocautery applied, DIABETES: Any more [...] as necessary. Patient chooses, no pharmaceutical tx (42382) Keratoma Treatment Parring or Cutting o f Benign Hyperkeratotic Lesion(s) 82363 ( 2-4 Lesions ) - The Benign hyperkeratotic lesions, as described above were pared, and/or cut utilizing a sterile 15 blade, tissue nippers, and/or dremel Progress Notes * Lauren CROWLEY BDOB:1945 ( 78 yo F)Acc No.[id number]:12/07/2023 Progress Note Patient:?Lauren Crowley Provider:?Enzo Jeffers DPM :1945???Age:78 Y???Sex:Female D ate:12/07/2023 Address:[address] [place], [place] [id number] Pcp:Ry Soriano Subjective: * Chief Complaints: * [...] inflamed 5th MTH/MPJ, RIGHT.?Ophthalmology Referral: ?DIABETES EYE EXAM?Diabetic Retinopathy Screening:?Yes ?Findings of Diabetic Eye Exam:?no retinopathy??? Assessment: * Assessment: 1.?Type 2 diabetes mellitus [...] as necessary. Patient chooses, no pharmaceutical tx (76871).?Keratoma Treatment:?Parring or Cutting of Benign Hyperkeratotic Lesion(s)?09835 ( 2-4 Lesions ) - The Benign hyperkeratotic lesions, as described above were pared, and/or cut utilizing a sterile 15 blade, tissue nippers, and/or dremel.?Wart Treatment:?Procedure?Verrucae(s) were debrided to pin-point bleeding margins with sterile surgical blade (73636), silver nitrate chemocautery applied, DIABETES: Any more invasive procedure to wart deferred due to diabetes risk.? * Procedure Codes:?33783 DEBRI DE NAIL, 6 OR MORE, Modifiers: XS 51849 Wart Destruction, 1-14, Modifiers: XS 44611 TRIM SKIN LESIONS, 2 TO 4, Modifiers: XS * Follow Up:?2 Months, 3 Month s * Images: * Sign off status: Completed true * Provider:?Enzo Jeffers DPM Date:? 024 Generated for Printi ng/Faxing/eTransmitting on:?06/17/2024 01:49 PM EDT History and Physical Notes * HPI (History of Present Illness) Category Sub-Category Detail Notes Category Not es At Risk footcare Pt States Last PCP Visit: Date: 4 Foot Pain Aggrevated: any pressure, st anding, walking Onset/Cause: unknown, denies brenda harrington Course: intermittent Duration: several years [...]
== END 2024-06-17 12:14 | disposition home or self-care (01) ==
PROVIDERS: PCP Internal Medicine; Visit Provider Physician Assistant
DX: R82.90 Unspecified abnormal findings in urine (principal)

== ENCOUNTER → 2024-06-17 11:20 | Outpatient (BNVA) | payer OTHER, SELFPAY | PROVIDERS: PCP Internal Medicine; Visit Provider Physician Assistant | DX: R82.90 Unspecified abnormal findings in urine (principal) | CPT/HCPCS: 81003; 99212 ==

== ENCOUNTER 2024-07-10 09:14 | Outpatient (AMB) | payer OTHER, SELFPAY ==
[2024-07-10 09:21] VITALS: BP 130/66; PULSE 76; RESP 20; TEMP 36.4; O2SAT 96; BMI 33.8
--- NOTE | 2024-07-10 09:21 | A.OFFPC_ITS ---
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: No Accompanied by: Self / Same As Patient Allergies No Known Allergies [No Known Allergies*] Allergy (Verified 07/10/24 09:30) Tobacco use date assessed: 07/10/24 Fall risk assessment: No Falls in past year Last assessed Fall Risk: 07/10/24 Dental Screening Dental Screen Date: 07/10/24 Did you have a dental visit in the last 12 months?: Yes Did you have a dental problem in the last 6 months where you did not have access to dental care?: No Was dental information given to patient?: Patient has dentist [facility] Medical History (Updated 06/17/24 @ 11:59 by Regine Kowalski PA-C) Pulmonary edema COVID-19 virus infection Obesity (BMI 30-39.9) Diabetic nephropathy Essential hypertension Lab test positive for detection of COVID-19 virus Toxic multinodular goiter Tubular adenoma of colon Coronary artery disease Hypercholesterolemia Type 2 diabetes mellitus with hyperglycemia Surgical History Hx of colonoscopy Status post coronary artery bypass graft History of coronary artery bypass graft x 3 (~09/17/19) History of cardiac catheterization (~09/16/19) History of total left knee replacement H/O umbilical hernia repair S/P lumpectomy, left breast Family History Father No problems noted. Mother No problems noted. Social History Housing: Apartment Alcohol intake: current Alcohol intake frequency: holidays/special occasions only Comment: beer new Patient Tobacco Use Status: Former Tobacco user Tobacco use type: Cigarette Years Smoked: 1999 quit e-Cigarette/Vaping Use: Never Used Second Hand Smoke Exposure: No Advance Directives Date on File: 01/08/20 service: No Current occupational status: retired Cognitive needs: Yes (cane ) Hearing needs: No Vision needs: Yes (glasses) Questionnaire Thrive Questionnaire Date Thrive assessed: 07/10/24 I am a: Patient What is your living situation today?: I choose not to answer this question Within the past 12 months, did the food you bought not last and you didn't have the money to get more?: I choose not to answer this question Within the past 12 months, did you worry whether your food would run out before you got money to buy more?: I choose not to answer this question Do you have trouble paying for medicines?: I choose not to answer this question Do you have trouble getting transportation to medical appointments?: I choose not to answer this question Do you have trouble paying your heating and electricity bill?: I choose not to answer this question Do you have trouble taking care of your child, family member or friend?: I choose not to answer this question Do you have trouble with day-to-day activities such as bathing, preparing meals, shopping, managing finances, etc.?: I choose not to answer this question Are you currently unemployed and looking for a job?: I choose not to answer this question Are you interested in more education?: I choose not to answer this question Please select the resources that you would like help with: None Currently or been in a relationship where the following occur: I choose not to answer THRIVE Score: 0 AUDIT C Alcohol Use Questionnaire (AUDIT-C) 1. How often do you have a drink containing alcohol?: Monthly or less 2. How many drinks containing alcohol do you have on a typical day when you are drinking?: 1 or 2 3. How often do you have six or more drinks on one occasion?: Never Total Score: 1 Score Reviewed/Action Taken: No ROSARIO-7 AMB Questionnaire ROSARIO-7 Date ROSARIO - 7 assessed: 04/11/24 Source: Developed by Drs. Reid Pena, Claribel Gomez, Randy Dukes and colleagues, with an educational bala from [employer]. Physical exam (Primary Care) Vital Signs: Last Vital Signs Temp 97.5 F 07/10/24 09:21 Pulse 76 07/10/24 09:21 Resp 20 07/10/24 09:21 BP 130/66 07/10/24 09:21 Pulse Ox 96 07/10/24 09:21 Oxygen Delivery Method Room Air 07/10/24 09:21 BMI result Body Mass Index 33.8 Tobacco/Smoking Status: Tobacco use Status Tobacco use date assessed 07/10/24 07/10/24 09:35 Patient Tobacco Use Status Former Tobacco user 07/10/24 09:35 Tobacco use type Cigarette 07/10/24 09:35 e-Cigarette/Vaping Use Never Used 07/10/24 09:35 Thrive Assessment: Date of Thrive Assessment Date Thrive assessed 07/10/24 07/10/24 09:35 Currently or been in a relationship where the following occur: I choose not to answer Const General: alert; No acute distress Eyes Conjunctivae: conjunctivae normal Resp Auscultation: clear to auscultation bilaterally Cardio Rate: regular rate Rhythm: regular rhythm GI Inspection: Yes normal to inspection Extrem General: Yes normal to inspection and No edema Results AMB Hemoglobin A1c AMB Hemoglobin A1c 7.0 % Last Edit by Meghan Ramos CMA on 07/10/24 09:37 Results Reviewed Results Reviewed: Laboratory Last Values Hgb A1c (Clinic) 7.0 % (4.0-6.0) H 07/10/24 09:36 Coding Level of Care Code Est Pt Level 4 (31175) Complex EM visit Add On G2211 Diagnoses Type 2 diabetes mellitus with hyperglycemia, with long-term current use of insulin E11.65; Z79.4 Diabetes mellitus termite helper insulin use: with termite helper use Hypercholesterolemia E78.00 Coronary artery disease involving [place] coronary artery of [place] heart without angina pectoris I25.10 Associated angina: without angina Coronary Disease-Associated Artery/Lesion type: [place] artery [place] vs. transplanted heart: [place] heart Essential hypertension I10 Obesity (BMI 30-39.9) E66.9 Knee osteoarthritis M17.10 Assessment & Plan Assessment & Plan (1) Type 2 diabetes mellitus with hyperglycemia: Comment: [facility] Code(s): E11.65 - Type 2 diabetes mellitus with hyperglycemia Category: Medical Qualifiers: Diabetes mellitus termite helper insulin use: with termite helper use Qualified Code(s): E11.65 - Type 2 diabetes mellitus with hyperglycemia; Z79.4 - watermaster (current) use of insulin Plan: Decrease the amount of carbohydrate intake, pasta, bread, rice and potatoes are all sugar and that is aside from all the sweet stuff, remember that fruits are good but they are Sweet also. Patient is on insulin NovoLog and glargine and metformin 500 mg twice a day hemoglobin A1c goal of less than 7.0 (2) Hypercholesterolemia: Comment: March 2022 Code(s): E78.00 - Pure hypercholesterolemia, unspecified Category: Medical Plan: Avoid fried foods, chicken skin, eggs, butter margarine, pastries and meat. Be it pork or beef they have a lot of cholesterol LDL goal of less than 70 patient is on atorvastatin 80 mg once a day patient is at goal (3) Coronary artery disease: Comment: nuclear stress test positive September 2019 EF 60 % moderate a symmetrical septal hypertrophy, catheterization done and bypass September 2019 CABG x3 Code(s): I25.10 - Atherosclerotic heart disease of [place] coronary artery without angina pectoris Category: Medical Qualifiers: Associated angina: without angina Coronary Disease-Associated Artery/Lesion type: [place] artery [place] vs. transplanted heart: [place] heart Qualified Code(s): I25.10 - Atherosclerotic heart disease of [place] coronary artery without angina pectoris Plan: Control the cholesterol, weight, blood pressure, diabetes continue with aspirin 81 mg once a day (4) Essential hypertension: Code(s): I10 - Essential (primary) hypertension Category: Medical Plan: Continue with blood pressure medication. Decrease salt intake and exercise on amlodipine 5 mg once a day lisinopril 30 mg once a day metoprolol 25 mg twice a day (5) Obesity (BMI 30-39.9): Code(s): E66.9 - Obesity, unspecified Category: Medical Plan: Continue with diet and exercise (6) Knee osteoarthritis: Code(s): M17.10 - Unilateral primary osteoarthritis, unspecified knee Category: Medical Plan: Patient follows up with ortho and injections scheduled but not done- - cancelled. discussed about voltaren gel Plan History of Present Illness The patient is a 78-year-old female presenting for a follow-up regarding her Type 2 Diabetes Mellitus, managed with insulin regimens and dietary adjustments, with a current Hemoglobin A1c of 7.0. She reports occasional episodes of hypoglycemia, noting stability over recent weeks. Her medical history is significant for Coronary Artery Disease with LDL currently at 56, managed optimally with atorvastatin and lifestyle modifications. She also has Essential Hypertension controlled with a regimen of amlodipine, lisinopril, and metoprolol, and monitors for diuretic-associated potassium changes, though current levels are stable. The patient denies associated symptoms with her diabetes management, including urinary infections, though she notes an unusual odor in her urine. Additional concerns include Right Knee Osteoarthritis, historically managed with therapy and injections, though recent procedure changes have altered her planned treatment schedule. She continues to use non-pharmacological interventions such as a topical gel and an elliptical machine to maintain mobility. The patient's healthcare maintenance involves regular checkups, last seeing an de icer with no evidence of retinopathy, and she remains current on colonoscopy screenings. Health Maintenance - Up to date with colonoscopy as of August 2023. - Ophthalmology follow-up in May 2024 with no evidence of diabetic retinopathy. - Cholesterol management with LDL goal achieved. - Education on dietary potassium sources to manage diuretic effect. - Encouragement of regular diet and exercise. Social History - The patient includes a daily banana in her diet and is conscious of sugar intake. - Regular use of an elliptical machine is reported for physical activity. - Living arrangement details with family were mentioned in terms of urine odor acknowledgment. Review of Systems - Genitourinary: Denies burning sensations, reports odor in urine. - Musculoskeletal: Reports osteoarthritis affecting mobility. - Endocrinology: Reports stable hypoglycemia response. Physical Exam Results - Labs: Hemoglobin A1c is 7.0, Creatinine of 1.11. LDL cholesterol level at 56, within goals. Plan 1. 0, considering the patient's recent lab data. I educated the patient on dietary potassium sources to handle diuretic effects and endorsed moderate use of potassium supplements. We maintain the current atorvastatin dose to keep LDL within the goal. The blood pressure regimen includes amlodipine, lisinopril, and metoprolol. Emphasis was placed on diet and exercise for cardiovascular health. With respect to knee osteoarthritis, the patient will continue using topical Voltaren and engage in physical activity. Further orthopedic consultations are advised due to changes in her injection schedule.: Patient was informed and verbally consented to the use of an ambient scribe for clinic note documentation during this visit. Discussion Notes During our visit, I reviewed the patient?s current condition with a focus on managing diabetes, which remains well controlled under the current insulin regimen. Discussion on cholesterol and hypertension management underscored importance of dietary factors. Further, I explained that her osteoarthritis treatment options have changed, and alternative management strategies were discussed including the use of Voltaren and lifestyle adaptations. We agreed on current management strategies given her stable conditions across board and no pressing concerns. Follow-up appointments with cardiology may be scheduled as necessary, and the patient is advised to maintain regular follow-up for her diabetes management. Patient Instructions - Continue insulin as prescribed; monitor blood sugar levels regularly. - Follow the prescribed statin regimen; observe dietary guidelines to maintain LDL levels. - Maintain blood pressure control with prescribed medication. - Increase intake of foods rich in potassium as per advice. - Apply Voltaren gel for knee discomfort and pursue regular physical activity. - Await call regarding new orthopedic injection schedule. - Increase water intake to manage urine odor; consider limiting sugar-rich cranberry juice. - Schedule regular follow-ups for all chronic conditions as advised. Orders: Orders AMB Hemoglobin A1c Today E11.65 - Type 2 diabetes mellitus with hyperglycemia, Z79.4 - watermaster (current) use of insulin
--- OUTSIDE RECORDS SUMMARY | 2024-07-10 09:58 | XMS_ITS | Data Portability ---
Author Organization [employer], [place] [facility] Address [address] [place] [id number] Care Team Providers Care Director [employer] Name Role Phone HIM CCA OTHER Assessment [...] Lab BMP, serum or plasma 2023 024 [facility], [address] [place] [address], [id number] 19:24:42 Referral None recorded. Procedures None recorded. Surgeries None recorded. Imaging None recorded. Medication Orders potassium chloride ER 20 mEq tablet,ext ended release(pa rt/cryst) 2023 024 [facility] Not available 15:48:42 Patient TargetsNo targets recorded. [...] Updated DateTime 3 18 /min 86 /min 31393.4 g 98.2 [degF] 95 % 95 % 151 mm[Hg] 81 mm[Hg] Not Available [facility] - production 3 15:59:17 Date Recorded Respiratory rate Heart rate Oxygen saturation Oxygen saturation in Arterial blood by Pulse oximetry Systolic blood pressure Diastolic blood pressure Provider Name and Address Organization Details Last Updated DateTime 4 18 /min 80 /min 97 % 97 % 170 mm[Hg] 72 mm[Hg] Not Available [facility] - production 4 15:26:48 Date Recorded Heart rate Respiratory rate Body temperature Oxygen saturation Oxygen saturation in Arterial blood by Pulse oximetry Systolic blood pressure Diastolic blood pressure Provider Name and Address Organization Details Last Updated DateTime 2 68 /min 16 /min 97.2 [degF] 96 % 96 % 177 mm[Hg] 86 mm[Hg] Not Available [facility] - production 2 10:45:26 Social History None recorded. Functional Status None recorded. Mental Status None recorded. Family History Nothing Reported. Medical History No medical history recorded. Gynecological HistoryNo gynecological history recorded. Obstetrics History GPAL:G 0 P 0 0 0 0 Past Encounters Encounter ID Performer Location Encounter Start Date Encounter Closed Date Diagnosis/Indication Diagnosis SNOMED-CT Code Diagnosis ICD10 Code Diagnosis Note [id number] Cher Aldrich MD Main [address] [address] 11/15/2021 10:44:55 12/23/2021 12:50:11 Essential hypertension 87043285 I10 [id number] Binu Miller MD [address] [address] 09/14/2022 15:59:15 09/15/2022 10:12:45 Cough 97554027 R05.9 [id number] Susan Taylor MD [address] [address] 12/29/2023 15:26:46 12/31/2023 08:42:03 Hyperglycemia 70183160 R73.9 Health Concerns Section Related Observation LastModified by Organization Detai ls LastModified Time None Recorded Concern Status LastModified by Organization Details LastModified Time None Recorded Advance Directives Directive None Recorded Payers Encounter Date Sequence Insurance Name Policy Number Policy Dillard Covered Member ID Dillard Member ID Guarantor Name 11/15/2021 1 [facility] [facility] [facility] - DOS PRIOR TO 2022 - DUAL ELIGIBLE (MEDICARE REPLACEMENT/ADV ANTAGE - HMO) Lauren Crowley [id number] Lauren Crowley 09/14/2022 1 [employer] [facility] [employer] [facility] - DOS ON OR AFTER 2022 - DUAL ELIGIBLE - NURSING HOME OPTIONS AND ONE CARE (MEDICARE REPLACEMENT/ADV ANTAGE - HMO) Lauren Crowley [id number] Lauren Crowley 12/29/2023 1 [employer] [facility] [employer] [facility] - DOS ON OR AFTER 2022 - DUAL ELIGIBLE - NURSING HOME OPTIONS AND ONE CARE (MEDICARE REPLACEMENT/ADV ANTAGE - HMO) Laruen Crowley [id number] Lauren Crowley Notes Date Note Type Note [...] Hypertension Allergies: Unknown Comments: Requestor is a Plate Printer, call placed to her, no answer, VM [...] visit for tomorrow. 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 Cher Aldrich MD [address] [facility],[address], [place], [address], [employer] 11/15/2021 11:11:16 09/14/2022 text/html CRC Nursing Assessment: [...] Verify member name/- Binu Miller MD [address] [facility],[address], [place], [address], [employer] 09/14/2022 16:01:50 12/29/2023 text/html HPI: Second outreach call to Mbr at number [phone] and spoke with Dgtr Aileen and Mbr. [...] No further information needed to process visit. Respiratory Therapist Organization Information for Richard Gutiérrez Business Legal Name: [employer] ? Address: [address] [place] [address], Store Director: Garrick Pate MD CLIA No.: [id number] Respiratory Therapist POC Test Results from Richard Gutiérrez iSTAT Chem8+ (15:36:49) Na: 137 mEq/L K: 3.8 mEq/L Cl: 105 mEq/L iCa: 1.32 mmol/L TCO2: 19 mmol/L Glu: 362 mg/dL BUN: 18 mg/dL Crea: 1.1 mg/dL Hct: 38 % Hb: 12.9 g/dL A ................... ................... ................... ................... ................... ................... ................... ........ Respiratory Therapist Note From Richard Gutiérrez: Pt visit for [...] Pt blood sugar 360. VS as noted. [facility] contacted who asks for blood labs. Labs obtained, uploaded, [facility] contacted again. [facility] requests Pt take 10 units insulin, and SC administer 40 mg potassium PO. Orders followed as noted. PT advised to call 911 should her symptoms worsen, Pt agrees to all [facility] orders, scene cleared. ................... ................... ................... ................... ................... ................... ................... ........ Disposition: Fulfilled Susan Taylor MD [address] [facility],[address], [place], [address], [employer] 12/29/2023 17:19:48 OBGyn Episode No OBEpisode recorded.
--- OUTSIDE RECORDS SUMMARY | 2024-07-10 09:58 | XMS_ITS ---
Author Organization [facility] Address [address] [facility] [place] [address] Care Team Providers Care Slagger Name Role Phone Ry Soriano Primary Care Provider UnavailClive Angulo Unavailable [phone] Allergies Allergen (clinical drug ingredient) Drug/Non Drug [...] Type 2 diabetes mellitus with peripheral angiopathy (995406689) Type 2 diabetes mellitus with diabetic peripheral angiopathy without gangrene (E11.51) Active confirmed Q7(A), Q8(2B), Q9(1B,2C) Problem Plantar wart (83329132) Plantar wart (B07.0) Active confirmed Problem Acquired hammer toe of right foot (1822441831562 105) Other hammer toe(s) (acquired), right foot (M20.41) Active confirmed Problem Acquired hammer toe of left foot (2880699402124 103) Other hammer toe(s) (acquired), left foot (M20.42) Active confirmed Vital Signs Height 5ft 5in in 03/05/2024 Weight 200 lbs 03/05/2024 BMI 33.28 kg/m2 03/05/2024 Procedures Procedure Date Ordered Date Performed Result Body Sit e 36436-QIRXHHO NAIL, 6 OR MORE 03/05/2024 N/A 67530-Icmf Destruction, 1-14 03/05/2024 N/A 37244-HFIH SKIN LESIONS, OVER 4 03/05/2024 N/A Encounters Encounter Location Date Provider Diagnosis [facility] [place] [address] [address] 03/05/2024 Clive Vilchis Type 2 diabetes mellitus [...] INSTRUCTIONS.pdf) Pending Test Test Name Order Date 18408-NCHWQDF NAIL, 6 OR MORE 03/05/2024 21781-Sqco Destruction, 1-14 03/05/2024 89622-GQFF SKIN LESIONS, OVER 4 03/05/20 24 Next Appt Details Follow Up: 2 Months, Reason: Provider Name:Clive Vilchis , 08/21/2024 10:45:00 AM, [address] [facility], [address], [place], [address], Procedure Notes * Category Sub-Category Detail Notes Wart Treatment Procedure Verruca, as desc ribed in exam, were debrided to pin-point bleeding margins with sterile 15 surgical blade, silver nitrate chemocautery applied, recomm. immune-boosting meds such as zinc, recomm. follow up with topical chemosurgical agents, Pt defers any other forms of tx - 34293 Debride Nail 6-10 Nail debridement Performance o [...] nipper and/or dremel-type grinder set up operator thread, to a more viable healthy nail plate [...] to maintain effectiveness in symptomatic relief - 73326 Keratoma Treatment Parring or Cutting o f Benign Hyperkeratotic Lesion(s) (-57) More than 4 Lesions - The Benign hyperkeratotic lesions, ( 8) in total, locations as stated and described in exam, were pared, and/or cut utilizing a sterile 15 blade, tissue nippers, and/or power dremel instrumentation - 00363, Q8 Progress Notes * Lauren CROWLEY BDOB:1945 ( 78 yo F)Acc No.[id number]:03/05/2024 Progress Note Patient:?BALBINALauren Provider:?Clive Vilchis DPM :1945???Age:78 Y???Sex:Female D ate:03/05/2024 Address:[address] [place], [place] [id number] Pcp:Ry Soriano Subjective: * Chief Complaints: * [...] Cramps/ Resting?denies.?Muscle cramps / walking?denies.?Generalized aches and pains?denies.?Weakness?denies.?Integ.:?Ordgers?denies.?Scars?denies.?Corns/calluses?admits.?Ingrown nails?admits.?Painful nails?admits.?Open Sores?denies.?Rashes?denies.?Neurologic:?Difficulty sleeping?denies.?Brain disorder?denies.?Numbness?denies.?Balance t rouble?denies.?Confusion?denies.?Fainting/blackouts?denies.?Tingling?denies.?Gunner [...] mellitus with diabetic peripheral angiopathy without gangrene?Procedure: 22400-BDOU SKIN LESIONS, OVER 4 3.?Tinea unguium?Procedure: 83854-NLGZGYS NAIL, 6 OR MORE 4.?Other hammer toe(s) [...] nipper and/or dremel-type grinder set up operator thread, to a more viable healthy nail plate [...] to maintain effectiveness in symptomatic relief - 22150.?Keratoma Treatment:?Parring or Cutting of Benign Hyperkeratotic Lesion(s)?(-57) More than 4 Lesions - The Benign hyperkeratotic lesions, ( 8) in total, locations as stated and described in exam, were pared, and/or cut utilizing a sterile 15 blade, tissue nippers, and/or power dremel instrumentation - 90068, Q8.?Wart Treatment:?Procedure?Verruca, as described in exam, were debrided to pin-point bleeding margins with sterile 15 surgical blade, silver nitrate chemocautery applied, recomm. immune-boosting meds such as zinc, recomm. follow up with topical chemosurgical agents, Pt defers any other forms of tx - 23730.? * Procedure Codes:?59978 DEBRI DE NAIL, 6 OR MORE, Modifiers: XS 26102 Wart Destruction, 1-14, Modifiers: XS 19805 TRIM SKIN LESIONS, OVER 4, Modifiers: XS [...] Vilchis DPM Date:?2023 Generated for Ollie lea/Neida/Cammy on:?07/10/2024 09:58 AM EDT History and Physical Notes * HPI [...] , (-) Charcot collapse/destruction noted at [facility] FOOTWEAR EVALUATION: worn, non-supportiv e, shoe gear properties exacerbate patient's foot/toe deformity [...]
--- OUTSIDE RECORDS SUMMARY | 2024-07-10 09:58 | XMS_ITS | Patient Health Record ---
Author Organization [facility] Address [address] [place] [address] Care Team Providers Care Accountancy Professor Name Role Phone Ry Soriano Primary Care Provider UnavailClive Angulo Unavailable [phone] Enzo Jeffers Unavailable [phone] Allergies Allergen (clinical drug ingredient) Drug/Non Drug [...] Problem Acquired hammer toe of right foot (5684972642468 105) Other hammer toe(s) (acquired), right foot (M20.41) Active confirmed Problem Type 2 diabetes mellitus with peripheral angiopathy (174988342) Type 2 diabetes mellitus with diabetic peripheral angiopathy without gangrene (E11.51) Active confirmed Q7(A), Q8(2B), Q9(1B,2C) Problem Acquired hammer toe of left foot (6871546319310 103) Other hammer toe(s) (acquired), left foot (M20.42) Active confirmed Problem Plantar wart (86715668) Plantar wart (B07.0) Active confirmed Vital Signs Blood pressure diastolic 64 mm Hg 06/02/2024 Height 5ft 5in in 06/02/2024 Blood pressure systolic 131 mm Hg 06/02/2024 Weight 200 lbs 06/02/2024 BMI 33.28 kg/m2 06/02/2024 Procedures Procedure Date Ordered Date Performed Result Body Sit e 86914-RHIK SKIN LESIONS, 2 TO 4 09/14/2023 N/A 57418-BYZSSDP NAIL, 6 OR MORE 03/05/2024 N/A 31660-Dvuh Destruction, 1-14 03/05/2024 N/A 37238-GNAL SKIN LESIONS, OVER 4 03/05/2024 N/A 22585-NVTAPXJ NAIL, 6 OR MORE 06/02/2024 N/A 41562-Kqvh Destruction, 1-14 06/02/2024 N/A 40128-VUOT SKIN LESIONS, OVER 4 06/02/2024 N/A Encounters Encounter Location Date Provider Diagnosis [address] [address] 09/14/2023 Enzo Jeffers Type 2 diabetes mellitus with diabetic polyneuropathy E11.42 ; Pain in right toe(s) M79.674 ; Pain in left toe(s) M79.675 ; Tinea unguium B35.1 ; Other viral warts B07.8 ; Pain in left foot M79.672 and Pain in right foot M79.[address] [address] 12/07/2023 Enzo Jeffers Type 2 diabetes mellitus with diabetic polyneuropathy E11.42 ; Pain in right toe(s) M79.674 ; Pain in left toe(s) M79.675 ; Tinea unguium B35.1 ; Other viral warts B07.8 ; Pain in left foot M79.672 and Pain in right foot M79.[address] [address] 03/05/2024 Clive Vilchis Type 2 diabetes mellitus with diabetic peripheral angiopathy without gangrene E11.51 ; Plantar wart B07.0 ; Tinea unguium B35.1 ; Pain in right toe(s) M79.674 ; Pain in left toe(s) M79.675 ; Right foot pain M79.671 ; Other hammer toe(s) (acquired), right foot M20.41 and Other hammer toe(s) (acquired), left foot M20.[address] [address] 06/02/2024 Clive Vilchis Type 2 diabetes mellitus [...] Treatment Pending Test Test Name Order Date 55947-OIXAMOU NAIL, 6 OR MORE 03/05/2024 29994-FADKWLK NAIL, 6 OR MORE 06/02/2024 87624-Mvvm Destruction, 1-14 06/02/2024 90453-Woin Destruction, 1-14 03/05/2024 16135-DXKU SKIN LESIONS, OVER 4 03/05/20 24 25549-MPLB SKIN LESIONS, OVER 4 06/03/19 25 48568-YMUN SKIN LESIONS, 2 TO 4 06/15/19 24 57908-DCHD SKIN LESIONS, 2 TO 4 09/14/19 24 Next Appt Details Provider Name:Clive Vilchis , 08/21/2024 10:45:00 AM, [address] [facility], [facility] [address], [place], [address], Insurance Providers Payer Name Payer Address Payer Phone Subscriber Number Group Number Insured Name Patient Relationship to Insured Coverage Start Date Coverage End Date [facility] [employer] Claims [address] [place] [id number] [phone] [id number] Lauren Crowley Self - patient is the insured Medical (General) History Medical History History ICD Code Arthritis Back,Hip,and Knee pain Cataracts covid-19 Diabetic High blood pressure Reflux ( GERD) Chicken pox Hypercholesterolemia Surgical History Surgery Date(Month/Year) triple bypass 2020 knee replacement hysterectomy 2022
--- OUTSIDE RECORDS SUMMARY | 2024-07-10 09:59 | XMS_ITS ---
Author Organization [facility] Address [address] [facility] [place] [address] Care Team Providers Care Extension Service Supervisor Name Role Phone Ry Soriano Primary Care Provider UnavailClive Angulo Unavailable [phone] Enzo Jeffers Unavailable [phone] Allergies Allergen (clinical drug ingredient) Drug/Non Drug [...] 12/07/2023 Encounters Encounter Location Date Provider Diagnosis [facility] [place] [address] [place] [address] 12/07/2023 Enzo Jeffers Type 2 diabetes mellitus [...] Name:Clive Vilchis , 08/21/2024 10:45:00 AM, [address] [facility] [place], [place] [address], [place], [address], Procedure Notes * Category Sub-Category Detail Notes Wart Treatment Procedure Verrucae(s) were debrided to pin-point bleeding margins with sterile surgical blade (00527), silver nitrate chemocautery applied, DIABETES: Any more [...] as necessary. Patient chooses, no pharmaceutical tx (26304) Keratoma Treatment Parring or Cutting o f Benign Hyperkeratotic Lesion(s) 32491 ( 2-4 Lesions ) - The Benign hyperkeratotic lesions, as described above were pared, and/or cut utilizing a sterile 15 blade, tissue nippers, and/or dremel Progress Notes * Lauren CROWLEY BDOB:1945 ( 78 yo F)Acc No.[id number]:12/07/2023 Progress Note Patient:?Lauren Crowley Provider:?Enzo Jeffers DPM :1945???Age:78 Y???Sex:Female D ate:12/07/2023 Address:[address] [place], [place] [id number] Pcp:Ry Soriano Subjective: * Chief Complaints: * [...] as necessary. Patient chooses, no pharmaceutical tx (46779).?Keratoma Treatment:?Parring or Cutting of Benign Hyperkeratotic Lesion(s)?39607 ( 2-4 Lesions ) - The Benign hyperkeratotic lesions, as described above were pared, and/or cut utilizing a sterile 15 blade, tissue nippers, and/or dremel.?Wart Treatment:?Procedure?Verrucae(s) were debrided to pin-point bleeding margins with sterile surgical blade (68702), silver nitrate chemocautery applied, DIABETES: Any more invasive procedure to wart deferred due to diabetes risk.? * Procedure Codes:?57582 DEBRI DE NAIL, 6 OR MORE, Modifiers: XS 93648 Wart Destruction, 1-14, Modifiers: XS 42047 TRIM SKIN LESIONS, 2 TO 4, Modifiers: XS * Follow Up:?2 Months, 3 Month s * Images: * Sign off status: Completed true * Provider:?Enzo Jeffers DPM Date:? 024 Generated for Printi ng/Faxing/eTransmitting on:?07/10/2024 09:59 AM EDT History and Physical Notes * [...]
--- OUTSIDE RECORDS SUMMARY | 2024-07-10 09:59 | XMS_ITS ---
Author Organization [facility] Address [address] [facility] [place] [address] Care Team Providers Care Insurance Risk Manager Name Role Phone Ry Soriano Primary Care Provider Clive Cardoso Unavailable [phone] Allergies Allergen (clinical drug ingredient) Drug/Non Drug [...] Ordered Date Performed Result Body Sit e 28645-DOWPWVR NAIL, 6 OR MORE 06/02/2024 N/A 10927-Nfvh Destruction, 1-14 06/02/2024 N/A 78500-IXGX SKIN LESIONS, OVER 4 06/02/2024 N/A Encounters Encounter Location Date Provider Diagnosis [facility] [address] [address] 06/02/2024 Clive Vilchis Type 2 diabetes mellitus [...] days Pending Test Test Name Order Date 69113-UZCRDNK NAIL, 6 OR MORE 06/02/2024 58035-Ehza Destruction, 1-14 06/02/2024 75044-ZVGC SKIN LESIONS, OVER 4 06/03/19 25 Next Appt Details Follow Up: 2 Months, Reason: Provider Name:Clive Vilchis , 08/21/2024 10:45:00 AM, [address] [facility], [address], [place], [address], Procedure Notes * Category Sub-Category Detail Notes Wart Treatment Procedure Verruca, as desc ribed in exam, were debrided to pin-point bleeding margins with sterile 15 surgical blade, silver nitrate chemocautery applied, recomm. immune-boosting meds such as zinc, recomm. follow up with topical chemosurgical agents, Pt defers any other forms of tx - 28407 Debride Nail 6-10 Nail debridement Due to [...] use of a nail nipper and/or dremel-type refractory grinder operator, to a more viable healthy nail [...] to maintain effectiveness in symptomatic relief - 85377 Keratoma Treatment Parring or Cutting o f [...] instrumentation by the physician of record - 73143, Q8 Progress Notes * Lauren CROWLEY BDOB:1945 ( 78 yo F)Acc No.[id number]:06/02/2024 Progress Note Patient:?BALBINA Lauren Toribio Provider:?Clive Vilchis DPM :1945???Age:78 Y???Sex:Female D ate:06/02/2024 Address:[address] [place], [place] [id number] Pcp:Ry Soriano Subjective: * Chief Complaints: * [...] mellitus with diabetic peripheral angiopathy without gangrene?Procedure: 99116-OBFJ SKIN LESIONS, OVER 4 3.?Tinea unguium?Procedure: 48262-QFLYONR NAIL, 6 OR MORE 4.?Tinea pedis of [...] use of a nail nipper and/or dremel-type refractory grinder operator, to a more viable healthy nail [...] to maintain effectiveness in symptomatic relief - 31081.?Keratoma Treatment:?Parring or Cutting of Benign Hyperkeratotic Lesion(s)?(-57) [...] instrumentation by the physician of record - 01471, Q8.?Wart Treatment:?Procedure?Verruca, as described in exam, were debrided to pin-point bleeding margins with sterile 15 surgical blade, silver nitrate chemocautery applied, recomm. immune-boosting meds such as zinc, recomm. follow up with topical chemosurgical agents, Pt defers any other forms of tx - 89483.? * Procedure Codes:?56913 DEBRI DE NAIL, 6 OR MORE, Modifiers: XS 35653 Wart Destruction, 1-14, Modifiers: XS 43903 TRIM SKIN LESIONS, OVER 4, Modifiers: XS [...] Vilchis DPM Date:?2024 Generated for Ollie lea/Neida/Cammy on:?07/10/2024 09:59 AM EDT History and Physical [...]
== END 2024-07-10 09:59 | disposition home or self-care (01) ==
LOC: HO.HMCH 09:15
PROVIDERS: PCP Internal Medicine; Visit Provider Internal Medicine
DX: E11.65 Type 2 diabetes mellitus with hyperglycemia (principal); Z79.4 Long term (current) use of insulin; E66.9 Obesity, unspecified; Z68.33 Body mass index [BMI] 33.0-33.9, adult; E78.00 Pure hypercholesterolemia, unspecified; I25.10 Atherosclerotic heart disease of native coronary artery without angina pectoris; I10 Essential (primary) hypertension; M17.10 Unilateral primary osteoarthritis, unspecified knee

== ENCOUNTER → 2024-07-10 09:14 | Outpatient (BNVA) | payer OTHER, SELFPAY | PROVIDERS: PCP Internal Medicine; Visit Provider Internal Medicine | DX: E11.65 Type 2 diabetes mellitus with hyperglycemia (principal); E78.00 Pure hypercholesterolemia, unspecified; I25.10 Atherosclerotic heart disease of native coronary artery without angina pectoris; I10 Essential (primary) hypertension; E66.9 Obesity, unspecified; M17.10 Unilateral primary osteoarthritis, unspecified knee; Z79.4 Long term (current) use of insulin | CPT/HCPCS: 83036; 99212 ==

== ENCOUNTER 2024-09-09 08:21 | Outpatient (AMB) | payer OTHER, SELFPAY ==
--- NOTE | 2024-09-09 08:32 | A.OFFVIS_ITS ---
Vital Signs 09/09/24 08:33 Height 5 ft 4 in Weight 191 lb 12.835 oz BMI 32.9 BP 128/68 Blood Pressure Location Lt brachial Position Sitting Pulse 78 Pulse Source Pulse Oximeter Intake Visit Reasons: follow up Allergies No Known Allergies [No Known Allergies*] Allergy (Verified 07/10/24 09:30) Medication List - Last Reconciled 09/09/24 by Sujit Patterson MD amlodipine 5 mg PO DAILY aspirin 81 mg PO DAILY atorvastatin 80 mg PO DAILY blood sugar diagnostic (FreeStyle Lite Strips) As directed check the BS TID blood-glucose meter (ICS Mobileuch Ultra2 Meter) As directed cholecalciferol (vitamin D3) 25 mcg PO DAILY flash glucose sensor (FreeStyle Kisha 2 Sensor kit) three times a day insulin aspart U-100 (Novolog FlexPen U-100 Insulin aspart) 8 - 36 units subcut TID insulin glargine 25 units subcut DAILY lisinopril 30 mg PO DAILY 90 days mecobalamin (vitamin B12) 1,000 mcg PO DAILY metformin 500 mg PO BID methimazole 5 mg PO DAILY metoprolol succinate ER 25 mg PO BID 90 days pen needle, diabetic (1st Tier Unifine Pentips) As directed injection 4 times a day pen needle, diabetic As directed [Pull ups As directed] [PULL UPS Extra Large As directed] torsemide 20 mg PO DAILY HPI Comments Details: Lauren returns for follow-up regarding coronary disease and bypass surgery. In the past, she was seen for consultation regarding anginal-type symptoms. That led to cardiac catheterization and coronary bypass surgery. She has multiple vascular risk factors including type 2 diabetes, hypertension, dyslipidemia. Since last seen, she states she is actually doing quite well. No complaints like angina or shortness of breath or anything along those lines. [facility] Medical History (Updated 06/17/24 @ 11:59 by Regine Murphy PA-C) Pulmonary edema COVID-19 virus infection Obesity (BMI 30-39.9) Diabetic nephropathy Essential hypertension Lab test positive for detection of COVID-19 virus Toxic multinodular goiter Tubular adenoma of colon Coronary artery disease Hypercholesterolemia Type 2 diabetes mellitus with hyperglycemia Surgical History Hx of colonoscopy Status post coronary artery bypass graft History of coronary artery bypass graft x 3 (~09/17/19) History of cardiac catheterization (~09/16/19) History of total left knee replacement H/O umbilical hernia repair S/P lumpectomy, left breast Family History Father No problems noted. Mother No problems noted. Social History Housing: Apartment Alcohol intake: current Alcohol intake frequency: holidays/special occasions only Comment: beer new year Patient Tobacco Use Status: Former Tobacco user Tobacco use type: Cigarette Years Smoked: 1999 quit e-Cigarette/Vaping Use: Never Used Second Hand Smoke Exposure: No Advance Directives Date on File: 01/08/20 service: No Current occupational status: retired Cognitive needs: Yes (cane ) Hearing needs: No Vision needs: Yes (glasses) Review of Systems Const Denies weakness ENT Denies dizziness Card Denies chest pain, Denies chest pain with activity, Denies syncope, Denies rapid heart rate, Denies pedal edema, Denies edema, Denies leg edema, Denies lightheadedness, Denies palpitations, Denies dyspnea, Denies dyspnea on exertion and Denies orthopnea Resp Denies cough, Denies dyspnea and Denies dyspnea on exertion GI Denies hematochezia and Denies change in stool character Musc Denies abnormal gait, Denies muscle cramps, Denies muscle weakness, Denies numbness, Denies radiating pain into limb and Denies tingling Neuro Denies abnormal gait, Denies dizziness, Denies syncope, Denies numbness, Denies tingling and Denies weakness Endo Denies palpitations Physical Exam Vital Signs: Last Vital Signs Pulse 78 09/09/24 08:33 BP 128/68 09/09/24 08:33 BMI result Body Mass Index 32.9 Const General: comfortable and no acute distress Orientation/consciousness: patient oriented x3 HEENT Other: Unremarkable Head: Yes normal to inspection Neck Neck: Yes normal visual inspection Chest Chest palpation & inspection: normal inspection of the chest Resp Auscultation: clear to auscultation bilaterally Cardio Palpation: normal PMI Heart sounds: S1 normal heart sound present, S2 normal heart sound present, no gallops, no murmurs and no rubs GI Palpation (GI): Soft to palpation Back/Spine/Pelvis Other: unremarkable Skin General skin exam: no rashes or lesions noted Neuro General: patient oriented x3 Extrem General: Yes normal to inspection Psych Mental Status: mental status grossly normal Assessment & Plan Assessment & Plan (1) Atherosclerotic cardiovascular disease: Code(s): I25.10 - Atherosclerotic heart disease of [place] coronary artery without angina pectoris Category: Medical Plan: Continue aspirin and statins. LDL cholesterol is in the 56mg/dl. (2) Status post coronary artery bypass graft: Code(s): Z95.1 - Presence of aortocoronary bypass graft Category: Surgical Plan: 09/2019. No recurrent issues. (3) Essential hypertension: Code(s): I10 - Essential (primary) hypertension Category: Medical Plan: On metoprolol, lisinopril, amlodipine. Stable. (4) Type 2 diabetes mellitus with complication: Code(s): E11.8 - Type 2 diabetes mellitus with unspecified complications Category: Medical Plan: She is on insulin and metformin. Most recent hemoglobin A1c is 7%. Plan Patient was informed and verbally consented to the use of an ambient scribe for clinic note documentation during this visit. Patient Instructions: - Continue taking your current medications as prescribed. - Monitor your blood sugar levels as directed by your process improvement specialist. - Contact us if you experience increased symptoms or new concerns. - Keep track of your symptoms and any changes in mobility. Coding Level of Care Code Est Pt Level 4 (18812) Complex EM visit Add On G2211 Diagnoses Atherosclerotic cardiovascular disease I25.10 Status post coronary artery bypass graft Z95.1 Essential hypertension I10 Type 2 diabetes mellitus with complication E11.8
[2024-09-09 08:33] VITALS: BP 128/68; PULSE 78; BMI 32.9
--- OUTSIDE RECORDS SUMMARY | 2024-09-09 08:34 | XMS_ITS | Patient Health Record ---
Author Organization [facility] Address [address] [place] [address] Care Team Providers Care Director Career Services Name Role Phone Ry Soriano Primary Care Provider UnavailClive Angulo Unavailable [phone] Enzo Jeffers Unavailable [phone] Allergies Allergen (clinical drug ingredient) Drug/Non Drug [...] Problem Acquired hammer toe of right foot (9902148658433 105) Other hammer toe(s) (acquired), right foot (M20.41) Active confirmed Problem Type 2 diabetes mellitus with peripheral angiopathy (806182064) Type 2 diabetes mellitus with diabetic peripheral angiopathy without gangrene (E11.51) Active confirmed Q7(A), Q8(2B), Q9(1B,2C) Problem Acquired hammer toe of left foot (8610764665820 103) Other hammer toe(s) (acquired), left foot (M20.42) Active confirmed Problem Plantar wart (01697326) Plantar wart (B07.0) Active confirmed Vital Signs Blood pressure diastolic 64 mm Hg 06/02/2024 Height 5ft 5in in 06/02/2024 Blood pressure systolic 131 mm Hg 06/02/2024 Weight 200 lbs 06/02/2024 BMI 33.28 kg/m2 06/02/2024 Procedures Procedure Date Ordered Date Performed Result Body Sit e 43162-OZTF SKIN LESIONS, 2 TO 4 09/14/2023 N/A 23505-XVDLPDO NAIL, 6 OR MORE 03/05/2024 N/A 39418-Vtil Destruction, 1-14 03/05/2024 N/A 80750-KOMU SKIN LESIONS, OVER 4 03/05/2024 N/A 72469-FUJQUCJ NAIL, 6 OR MORE 06/02/2024 N/A 42805-Vjus Destruction, 1-14 06/02/2024 N/A 95799-EAMB SKIN LESIONS, OVER 4 06/02/2024 N/A Encounters Encounter Location Date Provider Diagnosis [address] [address] 09/14/2023 Enzo Jeffers Type 2 diabetes mellitus with diabetic polyneuropathy E11.42 ; Pain in right toe(s) M79.674 ; Pain in left toe(s) M79.675 ; Tinea unguium B35.1 ; Other viral warts B07.8 ; Pain in left foot M79.672 and Pain in right foot M79.[address] [address] 12/07/2023 Enzo Jeffers Type 2 diabetes mellitus with diabetic polyneuropathy E11.42 ; Pain in right toe(s) M79.674 ; Pain in left toe(s) M79.675 ; Tinea unguium B35.1 ; Other viral warts B07.8 ; Pain in left foot M79.672 and Pain in right foot M79.[address] [address] 03/05/2024 Clive Vilchis Type 2 diabetes mellitus with diabetic peripheral angiopathy without gangrene E11.51 ; Plantar wart B07.0 ; Tinea unguium B35.1 ; Pain in right toe(s) M79.674 ; Pain in left toe(s) M79.675 ; Right foot pain M79.671 ; Other hammer toe(s) (acquired), right foot M20.41 and Other hammer toe(s) (acquired), left foot M20.[address] [address] 06/02/2024 Clive Vilchis Type 2 diabetes mellitus with diabetic peripheral angiopathy without gangrene E11.51 ; Plantar wart B07.0 ; Tinea unguium B35.1 ; Pain in right toe(s) M79.674 ; Pain in left toe(s) M79.675 ; Right foot pain M79.671 and Tinea pedis of both feet B35.3 [facility] [address] [address] 08/21/2024 Clive Vilchis Assessments Encounter Date Diagnosis (ICD Code) Assessment [...] Treatment Pending Test Test Name Order Date 83479-SBBDLFP NAIL, 6 OR MORE 03/05/2024 88146-YPXBFBZ NAIL, 6 OR MORE 06/02/2024 85797-Olcc Destruction, 1-14 06/02/2024 82555-Tnaf Destruction, 1-14 03/05/2024 48655-ODUV SKIN LESIONS, OVER 4 03/05/20 24 65101-OXFB SKIN LESIONS, OVER 4 06/03/19 25 11508-DFIA SKIN LESIONS, 2 TO 4 06/15/19 24 29037-SAAE SKIN LESIONS, 2 TO 4 09/14/19 24 Next Appt Details Provider Name:Clive Vilchis , 11/17/2024 09:30:00 AM, [address] [facility], [facility] [address], [place], [address], Insurance Providers Payer Name Payer Address Payer Phone Subscriber Number Group Number Insured Name Patient Relationship to Insured Coverage Start Date Coverage End Date [facility] SCO Claims [address] [place] [address] [phone] [id number] Lauren Crowley Self - patient is the insured Medical (General) History Medical History History ICD Code Arthritis Back,Hip,and Knee pain Cataracts covid-19 Diabetic High blood pressure Reflux ( GERD) Chicken pox Hypercholesterolemia Surgical History Surgery Date(Month/Year) triple bypass 2020 knee replacement hysterectomy 2022
== END 2024-09-09 08:45 | disposition home or self-care (01) ==
LOC: HO.HCS 08:22
PROVIDERS: PCP Internal Medicine; Visit Provider Internal Medicine
DX: I25.10 Atherosclerotic heart disease of native coronary artery without angina pectoris (principal); Z95.1 Presence of aortocoronary bypass graft; I10 Essential (primary) hypertension; E11.8 Type 2 diabetes mellitus with unspecified complications
CPT/HCPCS: 99214; G2211

== ENCOUNTER → 2024-09-09 08:21 | Outpatient (BNVA) | payer OTHER, SELFPAY | PROVIDERS: PCP Internal Medicine; Visit Provider Internal Medicine | DX: E11.8 Type 2 diabetes mellitus with unspecified complications (principal); I25.10 Atherosclerotic heart disease of native coronary artery without angina pectoris; Z95.1 Presence of aortocoronary bypass graft; I10 Essential (primary) hypertension | CPT/HCPCS: 99212 ==

== ENCOUNTER 2024-09-17 10:46 | Outpatient (REF) | payer OTHER, SELFPAY ==
--- OUTSIDE RECORDS SUMMARY | 2024-09-17 12:26 | XMS_ITS | Patient Health Record ---
Author Organization [facility] Address [address] [facility] [place] [address] Care Team Providers Care Room Attendants Name Role Phone Ry Soriano Primary Care Provider UnavailClive Angulo Unavailable [phone] Enzo Jeffers Unavailable [phone] Allergies Allergen (clinical drug ingredient) Drug/Non Drug [...] Problem Acquired hammer toe of right foot (1409922717036 105) Other hammer toe(s) (acquired), right foot (M20.41) Active confirmed Problem Type 2 diabetes mellitus with peripheral angiopathy (208201233) Type 2 diabetes mellitus with diabetic peripheral angiopathy without gangrene (E11.51) Active confirmed Q7(A), Q8(2B), Q9(1B,2C) Problem Acquired hammer toe of left foot (9932736614063 103) Other hammer toe(s) (acquired), left foot (M20.42) Active confirmed Problem Plantar wart (73117703) Plantar wart (B07.0) Active confirmed Vital Signs Blood pressure diastolic 64 mm Hg 06/02/2024 Height 5ft 5in in 06/02/2024 Blood pressure systolic 131 mm Hg 06/02/2024 Weight 200 lbs 06/02/2024 BMI 33.28 kg/m2 06/02/2024 Procedures Procedure Date Ordered Date Performed Result Body Sit e 84240-GWVDWJG NAIL, 6 OR MORE 03/05/2024 N/A 07099-Uhyj Destruction, 1-14 03/05/2024 N/A 94640-MCZN SKIN LESIONS, OVER 4 03/05/2024 N/A 05582-PAAGQNF NAIL, 6 OR MORE 06/02/2024 N/A 37548-Gcag Destruction, 1-14 06/02/2024 N/A 09642-AJCY SKIN LESIONS, OVER 4 06/02/2024 N/A Encounters Encounter Location Date Provider Diagnosis [address] [address] 12/07/2023 Enzo Jeffers Type 2 diabetes mellitus with diabetic polyneuropathy E11.42 ; Pain in right toe(s) M79.674 ; Pain in left toe(s) M79.675 ; Tinea unguium B35.1 ; Other viral warts B07.8 ; Pain in left foot M79.672 and Pain in right foot M79.[address] [address] 03/05/2024 Clive Vilchis Type 2 diabetes mellitus with diabetic peripheral angiopathy without gangrene E11.51 ; Plantar wart B07.0 ; Tinea unguium B35.1 ; Pain in right toe(s) M79.674 ; Pain in left toe(s) M79.675 ; Right foot pain M79.671 ; Other hammer toe(s) (acquired), right foot M20.41 and Other hammer toe(s) (acquired), left foot M20.[address] [address] 06/02/2024 Clive Vilchis Type 2 diabetes mellitus with diabetic peripheral angiopathy without gangrene E11.51 ; Plantar wart B07.0 ; Tinea unguium B35.1 ; Pain in right toe(s) M79.674 ; Pain in left toe(s) M79.675 ; Right foot pain M79.671 and Tinea pedis of both feet B35.[address] [address] 08/21/2024 Clive Vilchis Assessments Encounter Date Diagnosis [...] B35.1) 03/05/2024 Tinea unguium (ICD-10 - B35.1) 12/07/2023 Pain in right toe(s) (ICD-10 - M79.674) 12/07/2023 Pain in left toe(s) (ICD-10 - M79.675) 03/05/2024 Pain in right toe(s) (ICD-10 - M79.674) 06/02/2024 Pain in right toe(s) (ICD-10 - M79.674) 06/02/2024 Pain in left toe(s) (ICD-10 - M79.675) 03/05/2024 Pain in left toe(s) (ICD-10 - M79.675) 12/07/2023 Other viral warts (ICD-10 - B07.8) 12/07/2023 Tinea unguium (ICD-10 - B35.1) 12/07/2023 Pain in left foot (ICD-10 - [...] Treatment Pending Test Test Name Order Date 79292-OCDUVAC NAIL, 6 OR MORE 03/05/2024 47437-CUGEROG NAIL, 6 OR MORE 06/02/2024 49059-Youy Destruction, 1-14 06/02/2024 91088-Kpxz Destruction, 1-14 03/05/2024 03060-LKOS SKIN LESIONS, OVER 4 03/05/20 24 09328-NLME SKIN LESIONS, OVER 4 06/03/19 25 62493-WVNX SKIN LESIONS, 2 TO 4 06/15/19 24 33369-HFIL SKIN LESIONS, 2 TO 4 09/14/19 24 Next Appt Details Provider Name:Clive Vilchis , 11/17/2024 09:30:00 AM, [address] [facility], [facility] [address], [place], [address], Insurance Providers Payer Name Payer Address Payer Phone Subscriber Number Group Number Insured Name Patient Relationship to Insured Coverage Start Date Coverage End Date [facility] [employer] S[employer] Claims [address] [place] [address] [id number] Lauren Crowley Self - patient is the insured Medical (General) History Medical History History ICD Code Arthritis Back,Hip,and Knee pain Cataracts covid-19 Diabetic High blood pressure Reflux ( GERD) Chicken pox Hypercholesterolemia Surgical History Surgery Date(Month/Year) triple bypass 2020 knee replacement hysterectomy 2022
[2024-09-17 13:53] LABS: Blood Urea Nitrogen 16 mg/dL (9-16); Estimated Glomerular Filt Rate 49
== END 2024-09-17 10:47 | disposition home or self-care (01) ==
LOC: HO.HMGCLDS 10:46
PROVIDERS: PCP Internal Medicine; Visit Provider Radiology Vascular & Interventional Radiology
DX: R94.4 Abnormal results of kidney function studies (principal); R79.89 Other specified abnormal findings of blood chemistry
CPT/HCPCS: 36415; 82565; 84520

== ENCOUNTER 2024-10-13 09:15 | Outpatient (REF) | payer OTHER, SELFPAY ==
--- OUTSIDE RECORDS SUMMARY | 2024-10-13 09:34 | XMS_ITS | Patient Health Record ---
Author Organization [facility] Address [address] [facility] [place] [address] Care Team Providers Care Laborer Livestock Name Role Phone Ry Soriano Primary Care Provider UnavailClive Angulo Unavailable [phone] Enzo Jeffers Unavailable [phone] Allergies Allergen (clinical drug ingredient) Drug/Non Drug [...] with a linda l Orally Once a day; Duration: 30 day(s) Active amLODIPine Besylate 5 MG 1 tablet Orally Once a day; Duration: 30 day(s) Active Extra Depth Orthopedic Shoes, (1) Pair With (3) Pair Custom Heat Molded Multidensity Innersoles Dx: NIDDM/PVD(E11.51), Hammertoe Foot Deformity(M20.41,M20.42), Preulcerative Skin Lesion(s)(L85.1) Wear Daily; Duration: 365 days 03/05/2024 Active Ciclopirox Olamine 0.77 % 1 application Externally Twice a day to skin of feet including between the toes; Duration: 30 days Active Vitamin D3 Active Lisinopril 30 MG 1 tablet Orally Once a day; Duration: 30 day(s) Active Aspir-81 Active Torsemide 20 MG as directed Orally Active Metoprolol Succinate 25 MG 1 capsule Ora lly Once a day; Duration: 30 day(s) Active methIMAzole 5 MG 1 tablet Orally Once a day; Duration: 30 day(s) Active Atorvastatin Calcium 80 MG 1 tablet Oral ly Once a day; Duration: 30 day(s) Active Immunizations Vaccine Route Administration [...] Problem Acquired hammer toe of right foot (220164754485 9105) Other hammer toe(s) (acquired), right foot (M20.41) Active confirmed Problem Type 2 diabetes mellitus with diabetic peripheral angiopathy without gangrene (E11.51) Active confirmed Q7(A), Q8(2B), Q9(1B,2C) Problem Acquired hammer toe of left foot (285531686713 9103) Other hammer toe(s) (acquired), left foot (M20.42) Active confirmed Problem Plantar wart (81690658) Plantar wart (B07.0) Active confirmed Vital Signs Blood pressure diastolic 64 mm Hg 06/02/2024 Height 5ft 5in in 06/02/2024 Blood pressure systolic 131 mm Hg 06/02/2024 Weight 200 lbs 06/02/2024 BMI 33.28 kg/m2 06/02/2024 Procedures Procedure Date Ordered Date Performed Result Body Sit e 55186-DWARBUO NAIL, 6 OR MORE 03/05/2024 N/A 11817-Uzcb Destruction, 1-14 03/05/2024 N/A 36481-KVUN SKIN LESIONS, OVER 4 03/05/2024 N/A 99018-LAXAEMY NAIL, 6 OR MORE 06/02/2024 N/A 75655-Nibk Destruction, 1-14 06/02/2024 N/A 16373-DKVR SKIN LESIONS, OVER 4 06/02/2024 N/A Encounters Encounter Location Date Provider Diagnosis [address] [address] 12/07/2023 Enzo Jeffers Type 2 diabetes mellitus with diabetic polyneuropathy E11.42 ; Pain in right toe(s) M79.674 ; Pain in left toe(s) M79.675 ; Tinea unguium B35.1 ; Other viral warts B07.8 ; Pain in left foot M79.672 and Pain in right foot M79.[address] [address] 03/05/2024 Clive Vilchis Type 2 diabetes mellitus with diabetic peripheral angiopathy without gangrene E11.51 ; Plantar wart B07.0 ; Tinea unguium B35.1 ; Pain in right toe(s) M79.674 ; Pain in left toe(s) M79.675 ; Right foot pain M79.671 ; Other hammer toe(s) (acquired), right foot M20.41 and Other hammer toe(s) (acquired), left foot M20.[address] [address] 06/02/2024 Clive Vilchis Type 2 diabetes mellitus with diabetic peripheral angiopathy without gangrene E11.51 ; Plantar wart B07.0 ; Tinea unguium B35.1 ; Pain in right toe(s) M79.674 ; Pain in left toe(s) M79.675 ; Right foot pain M79.671 and Tinea pedis of both feet B35.[address] [address] 08/21/2024 Clive Vilchis Assessments Encounter Date Diagnosis [...] Treatment Pending Test Test Name Order Date 02710-HTLGNWB NAIL, 6 OR MORE 03/05/2024 77511-DWGHPRG NAIL, 6 OR MORE 06/02/2024 80470-Kkad Destruction, 1-14 06/02/2024 70992-Yemv Destruction, 1-14 03/05/2024 87027-OOMJ SKIN LESIONS, OVER 4 03/05/20 24 27401-VEFM SKIN LESIONS, OVER 4 06/03/19 25 20948-LCKH SKIN LESIONS, 2 TO 4 06/15/19 24 15788-CMJE SKIN LESIONS, 2 TO 4 09/14/19 Next Appt Details Provider Name:Clive Vilchis , 11/17/2024 09:30:00 AM, [address] [facility], [address], [place], [address], Insurance Providers Payer Name Payer Address Payer Phone Subscriber Number Group Number Insured Name Patient Relationship to Insured Coverage Start Date Coverage End Date [facility] [employer] Claims [address] [place] [address] [id number] Lauren Crowley Self - patient is the insured Medical (General) History Medical History History ICD Code Arthritis Back,Hip,and Knee pain Cataracts covid-19 Diabetic High blood pressure Reflux ( GERD) Chicken pox Hypercholesterolemia Surgical History Surgery Date(Month/Year) triple bypass 2020 knee replacement hysterectomy 2022
--- OUTSIDE RECORDS SUMMARY | 2024-10-13 09:35 | XMS_ITS | Data Portability ---
Author Organization [employer] [facility] Address [address] [place] [address] Care Team Providers Care Dance Choreographer Name Role Phone HIM CCA OTHER Assessment [...] Encouraged to orally rehydrate. Red flags reviewed. [email or web address] Not available 12/29/2023 15:48:13 Plan of Treatment Reminders Order Date Submit Date Provider Last Modified By Organization Details Last Modified Time Details Appointments None recorded. Lab BMP, serum or plasma 2023 [facility], [address] [place] [address], [id number] 19:24:42 Referral None recorded. Procedures None recorded. Surgeries None recorded. Imaging None recorded. Medication Orders potassium chloride ER 20 mEq tablet,ext ended release(pa rt/cryst) 2023 024 [email or web address] Not available 15:48:42 Patient TargetsNo targets [...] in Arterial blood by Pulse oximetry Systolic And Diastolic Provider Name and Address Organization Details Last Updated DateTime 3 18 /min 86 /min 25252.4 g 98.2 [degF] 95 % 95 % 151/81 mm[Hg] Not Available [facility] 3 15:59:17 Date Recorded Heart rate Respiratory rate Body temperature Oxygen saturation Oxygen saturation in Arterial blood by Pulse oximetry Systolic And Diastolic Provider Name and Address Organization Details Last Updated DateTime 2 68 /min 16 /min 97.2 [degF] 96 % 96 % 177/86 mm[Hg] Not Available [employer] [employer] 2 10:45:26 Date Recorded Respiratory rate Heart rate Oxygen saturation Oxygen saturation in Arterial blood by Pulse oximetry Systolic And Diastolic Provider Name and Address Organization Details Last Updated DateTime 4 18 /min 80 /min 97 % 97 % 170/72 mm[Hg] Not Available [employer] [facility] [employer] 4 15:26:48 Social History None recorded. Functional Status None recorded. Mental Status None recorded. Family History Nothing Reported. Medical History No medical history recorded. Gynecological HistoryNo gynecological history recorded. Obstetrics History GPAL:G 0 P 0 0 0 0 Past Encounters Encounter ID Performer Location Encounter Start Date Encounter Closed Date Diagnosis/Indication Diagnosis SNOMED-CT Code Diagnosis ICD10 Code Diagnosis Note [id number] Cher Aldrich MD Main - [address] [phone] 11/15/2021 10:44:55 12/23/2021 12:50:11 Essential hypertension [id number] I10 [id number] Binu Miller MD Main - [address] [phone] 09/14/2022 15:59:15 09/15/2022 10:12:45 Cough 55139089 R05.9 [id number] [facility] [address] [place] [phone] 12/29/2023 15:26:46 12/31/2023 08:42:03 Hyperglycemia 57383973 R73.9 Health Concerns Section Related Observation LastModified by Organization Detai ls LastModified Time None Recorded Concern Status LastModified by Organization Details LastModified Time None Recorded Advance Directives Directive None Recorded Payers Insurance Date Sequence Insurance Name Policy Number Policy Dillard Covered Member ID Dillard Member ID Guarantor Name 09/14/2022 1 [facility] - DOS PRIOR TO 2022 - DUAL ELIGIBLE (MEDICARE REPLACEMENT/ADV ANTAGE - HMO) Lauren Crowley [id number] Lauren Crowley 12/29/2023 1 [facility] - DOS ON OR AFTER 2022 - DUAL ELIGIBLE - FDC OPTIONS AND ONE CARE (MEDICARE REPLACEMENT/ADV ANTAGE - HMO) Lauren Crowley [id number] Lauren Crowley Notes Date Note Type Note [...] Hypertension Allergies: Unknown Comments: Requestor is a Bakery Team 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 Red flags discussed, also VETERANS EMPLOYMENT REPRESENTATIVE(daughter) lives with member and will be there all night. Cher Aldrich MD [address] [facility],[address], [place], [address], [employer] 11/15/2021 11:11:16 09/14/2022 text/html CRC Nursing Assessment: [...] Verify member name/- Binu Miller MD [address], [place], [address], [employer] 09/14/2022 16:01:50 12/29/2023 text/html HPI: Second outreach call to Mbr at number [phone] and spoke with Dgtr Aileen and Mbr. [...] No further information needed to process visit. Material Coordinator Organization Information for Richard Gutiérrez Business Legal Name: [employer]. Address: [address] [place] [address], [facility]: Garrick Pate MD CLIA No.: [id number] Material Coordinator POC Test Results from Richard Gutiérrez iSTAT Chem8+ (15:36:49) Na: 137 mEq/L K: 3.8 mEq/L Cl: 105 mEq/L iCa: 1.32 mmol/L TCO2: 19 mmol/L Glu: 362 mg/dL BUN: 18 mg/dL Crea: 1.1 mg/dL Hct: 38 % Hb: 12.9 g/dL A ................... ................... ................... ................... ................... ................... ................... ........ Material Coordinator Note From Richard Gutiérrez: Pt visit for [...] Pt blood sugar 360. VS as noted. [facility] contacted who asks for blood labs. Labs obtained, uploaded, [facility] contacted again. [facility] requests Pt take 10 units insulin, and SC administer 40 mg potassium PO. Orders followed as noted. PT advised to call 911 should her symptoms worsen, Pt agrees to all [facility] orders, scene cleared. ................... ................... ................... ................... ................... ................... ................... ........ Disposition: Fulfilled Susan Taylor MD [address] [facility],[address], [place], [address], [employer] 12/29/2023 17:19:48 OBGyn Episode No OBEpisode recorded.
--- OUTSIDE RECORDS SUMMARY | 2024-10-13 09:35 | XMS_ITS ---
Author Name [facility] Organization Unknown Encounters Encounter Type Encounter Reason Primary Diagnosis Location Date Ambulatory [facility] 08/01/2023 Ambulatory [facility] 08/01/2023
[2024-10-13 11:25] LABS: Blood Urea Nitrogen 10 mg/dL (9-16); Estimated Glomerular Filt Rate 43
== END 2024-10-13 09:16 | disposition home or self-care (01) ==
LOC: HO.HMGCLDS 09:15
PROVIDERS: PCP Internal Medicine; Visit Provider Radiology Vascular & Interventional Radiology
DX: R79.89 Other specified abnormal findings of blood chemistry (principal); R94.4 Abnormal results of kidney function studies
CPT/HCPCS: 36415; 82565; 84520

== ENCOUNTER 2024-10-27 09:45 | Outpatient (AMB) | payer OTHER, SELFPAY ==
--- OUTSIDE RECORDS SUMMARY | 2024-08-21 06:45 | XMS_ITS ---
Author Organization [facility] Address [address] [place] [address] Care Team Providers Care Lens Engraver Name Role Phone Ry Soriano Primary Care Provider Unavailabl Clive Green Unavailable [phone] Encounters Encounter Location Date [facility] [address] [address] 08/21/2024 Clive Vilchis Plan Of Treatment Next Appt Details Provider Name:Clive Vilchis , 11/17/2024 09:30:00 AM, [address] [place] [address], [address], Progress Notes * BALBINA Lauren BDOB:1945 ( 79 yo F)Acc No.[id number]:08/21/2024 Progress Note Patient: Lauren CHRISTIANSON Provider: Gus Vilchis DPM :1945 A ge:79 Y S ex:Female Date:08/21/2024 Address:[address] [place] [address] Kamala [facility] Pcp:Ry Soriano Subjective: * Chief Complaints: * [...] 08/21/2024 Generated for Ollie lea/Neida/Cammy on: 0 10/27/2024 10:41 AM EDT
[2024-10-27 09:57] VITALS: BP 148/62; PULSE 70; RESP 18; TEMP 36.3; O2SAT 94; BMI 33.3
--- NOTE | 2024-10-27 09:57 | MHC.PC.OV ---
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 was not given colstazol PFSH Medical History Pulmonary edema COVID-19 virus infection Obesity (BMI 30-39.9) Diabetic nephropathy Essential hypertension Lab test positive for detection of COVID-19 virus Toxic multinodular goiter Tubular adenoma of colon Coronary artery disease Hypercholesterolemia Type 2 diabetes mellitus with hyperglycemia Surgical History Hx of colonoscopy Status post coronary artery bypass graft History of coronary artery bypass graft x 3 (~09/17/19) History of cardiac catheterization (~09/16/19) History of total left knee replacement H/O umbilical hernia repair S/P lumpectomy, left breast Family History Father No problems noted. Mother No problems noted. Social History Housing: Apartment Alcohol intake: current Alcohol intake frequency: holidays/special occasions only Comment: beer new year Patient Tobacco Use Status: Former Tobacco user Tobacco use type: Cigarette Years Smoked: 1999 quit e-Cigarette/Vaping Use: Never Used Second Hand Smoke Exposure: No Advance Directives Date on File: 01/08/20 service: No Current occupational status: retired Cognitive needs: Yes (cane ) Hearing needs: No Vision needs: Yes (glasses) Questionnaire PHQ-9 Over the last 2 weeks, how often have you been bothered by any of the following problems? 1. Little interest or pleasure in doing things: not at all 2. Feeling down, depressed, or hopeless: not at all 3. Trouble falling or staying asleep, or sleeping too much: not at all 4. Feeling tired or having little energy: not at all 5. Poor appetite or overeating: not at all 6. Feeling bad about yourself - or that you are a failure or have let yourself or your family down: not at all 7. Trouble concentrating on things, such as reading the newspaper or watching television: not at all 8. Moving or speaking so slowly that other people could have noticed. Or the opposite - being so fidgety or restless that you have been moving around a lot more than usual: not at all 9. Thoughts that you would be better off or of hurting yourself in some way: not at all Total score: 0 Depression Screening Interpretation: Negative Depression Screening Done: Yes 88302 - PHQ-9 Billing: Yes Source: Developed by Drs. Reid Pena, Claribel Gomez, Randy Dukes and colleagues, with an educational bala from [employer]. Thrive Questionnaire Date Thrive assessed: 10/27/24 I am a: Patient What is your living situation today?: I choose not to answer this question Within the past 12 months, did the food you bought not last and you didn't have the money to get more?: I choose not to answer this question Within the past 12 months, did you worry whether your food would run out before you got money to buy more?: I choose not to answer this question Do you have trouble paying for medicines?: I choose not to answer this question Do you have trouble getting transportation to medical appointments?: I choose not to answer this question Do you have trouble paying your heating and electricity bill?: I choose not to answer this question Do you have trouble taking care of your child, family member or friend?: I choose not to answer this question Do you have trouble with day-to-day activities such as bathing, preparing meals, shopping, managing finances, etc.?: I choose not to answer this question Are you currently unemployed and looking for a job?: I choose not to answer this question Are you interested in more education?: I choose not to answer this question Please select the resources that you would like help with: None Currently or been in a relationship where the following occur: I choose not to answer THRIVE Score: 0 AUDIT C Alcohol Use Questionnaire (AUDIT-C) 1. How often do you have a drink containing alcohol?: Monthly or less 2. How many drinks containing alcohol do you have on a typical day when you are drinking?: 1 or 2 3. How often do you have six or more drinks on one occasion?: Never Total Score: 1 Score Reviewed/Action Taken: No ROSARIO-7 AMB Questionnaire ROSARIO-7 Date ROSARIO - 7 assessed: 10/27/24 Feeling nervous, anxious, or on edge: 0 = Not at all Not being able to stop or control worryin = Not at all Worrying too much about different things: 0 = Not at all Trouble relaxin = Not at all Being so restless that it is hard to sit still: 0 = Not at all Becoming easily annoyed or irritable: 0 = Not at all Feeling afraid as if something awful might happen: 0 = Not at all Total ROSARIO-7 score (0-4 normal; 5-9 mild; 10-14 moderate; 15-21 severe): 0 Source: Developed by Drs. Reid Pena, Claribel Gomez, Randy Dukes and colleagues, with an educational bala from [employer]. Physical exam (Primary Care) Vital Signs: Last Vital Signs Temp 97.3 F 10/27/24 09:57 Pulse 70 10/27/24 09:57 Resp 18 10/27/24 09:57 BP 120/60 10/27/24 10:25 Pulse Ox 94 10/27/24 09:57 Oxygen Delivery Method Room Air 10/27/24 09:57 BMI result Body Mass Index 33.3 Tobacco/Smoking Status: Tobacco use Status Tobacco use date assessed 10/27/24 10/27/24 10:05 Patient Tobacco Use Status Former Tobacco user 10/27/24 10:05 Tobacco use type Cigarette 10/27/24 10:05 e-Cigarette/Vaping Use Never Used 10/27/24 10:05 PHQ-9: PHQ-9 Score PHQ-9: Total score 0 10/27/24 10:39 Depression Screening Interpretation: Negative Thrive Assessment: Date of Thrive Assessment Date Thrive assessed 10/27/24 10/27/24 10:05 Currently or been in a relationship where the following occur: I choose not to answer Const General: alert; No acute distress Eyes Conjunctivae: conjunctivae normal Resp Auscultation: clear to auscultation bilaterally Cardio Rate: regular rate Rhythm: regular rhythm GI Inspection: Yes normal to inspection Extrem General: Yes normal to inspection and No edema Results AMB Hemoglobin A1c AMB Hemoglobin A1c 7.5 % Last Edit by Debbi Upton CMA on 10/27/24 10:08 Immunizations Tenivac (PF) 5 Lf unit-2 Lf unit/0.5 mL intramuscular syringe Performing Provider: Ry Soriano MD [facility] Administered by: Debbi Upton CMA on 10/27/24 10:39 Dose Route Admin Location Dispensed Lot Number Expiration Date [place] Salon Designer 0.5 mL IM Left Tricep 0.5 mL [id number] 07/30/26 55483-761-20 [employer] Total Dispensed Waste 0.5 mL 0 % VIS Given Date VIS Provided VIS Publication Date 10/27/24 Single Vaccine 20 Eligibility Eligibility Date Funding Source Not [facility] Eligible 10/27/24 Private Results Reviewed Results Reviewed: Laboratory Last Values Hgb A1c (Clinic) 7.5 % (4.0-6.0) H 10/27/24 09:58 Coding Level of Care Code Est Pt Level 4 (15331) Complex EM visit Add On G2211 Diagnoses Essential hypertension I10 Coronary artery disease involving [place] coronary artery of [place] heart without angina pectoris I25.10 Associated angina: without angina Coronary Disease-Associated Artery/Lesion type: [place] artery [place] vs. transplanted heart: [place] heart Peripheral arterial disease I73.9 Hypercholesterolemia E78.00 Type 2 diabetes mellitus with hyperglycemia, with long-term current use of insulin E11.65; Z79.4 Diabetes mellitus detention insulin use: with detention use Obesity (BMI 30-39.9) E66.9 Knee osteoarthritis M17.10 Additional Codes PHQ-9 - 07458 - PHQ-9 Billing: Yes ([id number]) Assessment & Plan Assessment & Plan (1) Essential hypertension: Code(s): I10 - Essential (primary) hypertension Category: Medical Plan: Continue with blood pressure medication. Decrease salt intake and exercise patient is on amlodipine 5 mg once a day lisinopril 30 mg once a day metoprolol 25 mg twice a day (2) Coronary artery disease: Comment: nuclear stress test positive September 2019 EF 60 % moderate a symmetrical septal hypertrophy, catheterization done and bypass September 2019 CABG x3 Code(s): I25.10 - Atherosclerotic heart disease of [place] coronary artery without angina pectoris Category: Medical Qualifiers: Associated angina: without angina Coronary Disease-Associated Artery/Lesion type: [place] artery [place] vs. transplanted heart: [place] heart Qualified Code(s): I25.10 - Atherosclerotic heart disease of [place] coronary artery without angina pectoris Plan: Control the cholesterol, weight, blood pressure, diabetes patient is on aspirin 81 mg once a day (3) Peripheral arterial disease: Comment: Right leg proximal and distal occlusion of the superficial femoral artery popliteal artery patent, left leg proximal occlusion femoral artery superficial femoral artery occlusions Joon canal and distal popliteal artery August 2024 Code(s): I73.9 - Peripheral vascular disease, unspecified Category: Medical Plan: Patient is being followed up by endovascular and planned conservative management of cilostazol (4) Hypercholesterolemia: Comment: March 2022 Code(s): E78.00 - Pure hypercholesterolemia, unspecified Category: Medical Plan: Avoid fried foods, chicken skin, eggs, butter margarine, pastries and meat. Be it pork or beef they have a lot of cholesterol LDL goal of less than 60 and patient is on atorvastatin 80 mg once a day (5) Type 2 diabetes mellitus with hyperglycemia: Comment: [facility] Code(s): E11.65 - Type 2 diabetes mellitus with hyperglycemia Category: Medical Qualifiers: Diabetes mellitus detention insulin use: with long term care pharmacist use Qualified Code(s): E11.65 - Type 2 diabetes mellitus with hyperglycemia; Z79.4 - ad terminal makeup operator (current) use of insulin Plan: Decrease the amount of carbohydrate intake, pasta, bread, rice and potatoes are all sugar and that is aside from all the sweet stuff, remember that fruits are good but they are Sweet also. Hemoglobin A1c goal of less than 7.0 patient is taking insulin NovoLog as well as glargine, metformin for diabetes (6) Obesity (BMI 30-39.9): Code(s): E66.9 - Obesity, unspecified Category: Medical Plan: Diet and exercise (7) Knee osteoarthritis: Code(s): M17.10 - Unilateral primary osteoarthritis, unspecified knee Category: Medical Plan: Patient is being followed up by ortho and has had injection recently Plan History of Present Illness The patient is a 79-year-old female presenting for follow-up of multiple chronic conditions including diabetes mellitus, hypercholesterolemia, coronary artery disease, hypertension, knee osteoarthritis, and peripheral arterial disease. The patient has a history of diabetes mellitus, with a current hemoglobin A1c of 7.5, indicating suboptimal glycemic control. She is on a regimen of insulin NovoLog, glargine, and metformin, and is advised to maintain diet and exercise for better management. The patient's hypercholesterolemia is managed with atorvastatin 80 mg daily, achieving an LDL level of 56 mg/dL, which is below the target of less than 60 mg/dL. For coronary artery disease, the patient is on aspirin 81 mg daily and is under the care of [facility] for conservative management with cilostazol. Hypertension is controlled with amlodipine, lisinopril, and metoprolol, with recent blood pressure readings of 120/60 mmHg, which is satisfactory. The patient has knee osteoarthritis and has recently received injections for symptom relief, with follow-up care by orthopedics. Peripheral arterial disease is being managed conservatively with an exercise program and cilostazol, with noted occlusions in the femoral and popliteal arteries requiring further intervention. Preventative care measures include a declined mammogram, a normal bone density test in 2018, and a colonoscopy performed in August 2023. The patient reports temporomandibular joint disorder symptoms, likely related to recent denture adjustments, causing discomfort when yawning. Health Maintenance - Mammogram declined - Bone density normal in 2017 - Colonoscopy in August 2023 - Tetanus shot due, last received in 2014 Social History - Exercise: Patient walks through the house but does not track steps. Review of Systems - Cardiovascular: Denies chest pain, reports satisfactory blood pressure control. - Musculoskeletal: Reports knee pain managed with injections. - Endocrine: Reports elevated blood sugar levels, current hemoglobin A1c is 7.5. - Oral: Reports temporomandibular joint discomfort when yawning. Physical Exam - Cardiovascular: Blood pressure 120/60 mmHg, satisfactory control noted. Results - Labs: Hemoglobin A1c is 7.5, LDL is 56 mg/dL. Plan The management plan for diabetes mellitus includes maintaining the current regimen of insulin NovoLog, glargine, and metformin, with an emphasis on diet and exercise to achieve a hemoglobin A1c goal of less than 7.0. For hypercholesterolemia, the patient will continue atorvastatin 80 mg daily, with a target LDL of less than 60 mg/dL, which is currently being met. Coronary artery disease management involves daily aspirin and follow-up with [facility], with a conservative approach using cilostazol. Hypertension management includes amlodipine, lisinopril, and metoprolol, with satisfactory blood pressure control noted. For knee osteoarthritis, the patient will continue follow-up with orthopedics and has recently received injections for symptom relief. Peripheral arterial disease will be managed with an exercise program and cilostazol, with further intervention planned for occlusions in the femoral and popliteal arteries. Preventative care includes addressing the tetanus vaccination, which is due, and considering a mammogram despite previous declinations. Patient was informed and verbally consented to the use of an ambient scribe for clinic note documentation during this visit. Discussion Notes During the visit, we discussed the management of diabetes mellitus, emphasizing the importance of maintaining a hemoglobin A1c below 7.0 through medication adherence and lifestyle modifications. We reviewed the patient's cholesterol management, noting the success in achieving an LDL level below the target with atorvastatin therapy. For coronary artery disease, the patient is advised to continue aspirin therapy and follow up with [facility] for ongoing management with cilostazol. Hypertension control was acknowledged as satisfactory, with current medications effectively managing blood pressure. We also discussed the patient's knee osteoarthritis management, including recent injections and ongoing orthopedic follow-up. The plan for peripheral arterial disease includes conservative management and potential further intervention for arterial occlusions. Preventative care measures were addressed, including the need for a tetanus booster and consideration of a mammogram. Patient Instructions - Continue current diabetes medications and focus on diet and exercise to lower A1c. - Maintain atorvastatin therapy to keep LDL below target. - Continue aspirin therapy and follow up with [facility] for coronary artery disease management. - Adhere to hypertension medications and monitor blood pressure regularly. - Follow up with orthopedics for knee osteoarthritis management. - Engage in regular exercise as part of peripheral arterial disease management. - Consider scheduling a tetanus booster and discuss mammogram options. Orders: Orders AMB Hemoglobin A1c Today Z13.9 - Encounter for screening, unspecified Complete Blood Count Auto Diff 4 Months E11.65 - Type 2 diabetes mellitus with hyperglycemia, Z79.4 - ad terminal makeup operator (current) use of insulin Comprehensive Met. Panel 4 Months E11.65 - Type 2 diabetes mellitus with hyperglycemia, Z79.4 - ad terminal makeup operator (current) use of insulin Microalbumin, Random (w Creat) 4 Months E11.65 - Type 2 diabetes mellitus with hyperglycemia, Z79.4 - ad terminal makeup operator (current) use of insulin Vitamin B12 and Folate 4 Months E11.65 - Type 2 diabetes mellitus with hyperglycemia, Z79.4 - nursing home (current) use of insulin Vitamin D 25-OH Total 4 Months E11.65 - Type 2 diabetes mellitus with hyperglycemia, Z79.4 - nursing home (current) use of insulin XR DEXA axial skeleton Today E11. - Type 2 diabetes mellitus with hyperglycemia, M81.0 - Age-related osteoporosis without current pathological fracture, Z79.4 - nursing home (current) use of insulin MM tomosynthesis screening BI Today Z12.31 - Encounter for screening mammogram for malignant neoplasm of breast Td Immunization Today Z23 - Encounter for immunization Free T4 (Free Thyroxine) 4 Months E11.65 - Type 2 diabetes mellitus with hyperglycemia, Z79.4 - ad terminal makeup operator (current) use of insulin Thyroid Stimulating Hormone 4 Months E11.65 - Type 2 diabetes mellitus with hyperglycemia, Z79.4 - nursing home (current) use of insulin Lipid Panel 4 Months E11.65 - Type 2 diabetes mellitus with hyperglycemia, E78.00 - Pure hypercholesterolemia, unspecified, Z79.4 - nursing home (current) use of insulin Creatinine Urine 4 Months E11. - Type 2 diabetes mellitus with hyperglycemia, Z79.4 - ad terminal makeup operator (current) use of insulin Hemoglobin A1c 4 Months E11.65 - Type 2 diabetes mellitus with hyperglycemia, Z79.4 - nursing home (current) use of insulin
[2024-10-27 10:25] VITALS: BP 120/60
--- OUTSIDE RECORDS SUMMARY | 2024-10-27 10:42 | XMS_ITS | Encounter Summary ---
Author Organization [facility] Address [address] [place] [address] Phone Care Team Providers Care Hat Checker Name Role Phone Ry Soriano MD Primary Care Provider [phone] Reason for Referral * - Closed Specialty Diagnoses / Procedures Referred By Contholly t Referred To Contact Procedures NM Bone Outside (No Interpretation) Binu Oliver MD Phone: tel: fax: mailto:[email or web address] Referral ID Status Reason Start Date Expiration Date Visits Re quested Visits Authorized [id number] Closed 08/16/2018 08/16/2019 1 1 Encounter Details Date Type Department Care Team (Late st Contact Info) Description 08/16/2018 Transcribe Orders [facility] [address] [place] [address] Pierre Contreras [address] [place] [address] [email or web address] Social History Tobacco Use Types Packs/Day Years Used Date Smoking Tobacco: Never Assessed Comments Unknown Sex and Gender Information Value Date Recorded Sex Assigned at Female 05/20/2020 1:47 PM EST Legal Sex Female 11:31 AM EDT Gender Identity Female 05/20/2020 1:47 PM EST Sexual Orientation Straight 05/09/2024 8: 59 AM EST documented as of this encounter Plan of Treatment Upcoming Encounters Date Type Department Care Team (Late st Contact Info) Description 11/05/2024 11:20 AM EDT Office Visit [facility] [address] [place] [address] Sushma Arias MD [address] [place] [address] 02/03/2025 9:00 AM EST Office Visit [facility] [address] [place] [address] Jany Trevino PA-C [address] [place] [address] [email or web address] documented as of this encounter Results * US Vascular Outside (No Interpretation) (08/16/2018 10:32 AM EDT) Narrative SYSTEMGENERATED, DOCUMENTATION - 08/16/2018 10:32 AM EDT This study is for PACS storage only and not for interpretation. us Binu Oliver MD CV US VASCULAR Final Result * XR Lower Extremity Outside (No Interpretation) (08/16/2018 10:32 AM EDT) Narrative [facility] - 08/16/2018 10:32 AM EDT This study is for PACS storage only and not for interpretation. us Binu Oliver MD IMG OUTSIDE IMAGING W/OUT INTE RPRETATION Final Result [facility] * XR Lower Extremity Outside (No Interpretation) (08/16/2018 10:32 AM EDT) Narrative [facility] - 08/16/2018 10:32 AM EDT This study is for PACS storage only and not for interpretation. us Binu Oliver MD IMG OUTSIDE IMAGING W/OUT INTE RPRETATION Final Result Performing Organization Address City/[facility]/ZIP Co de Phone Number [facility] * NM Bone Outside (No Interpretation) (08/16/2018 10:32 AM EDT) Narrative [facility] - 08/16/2018 10:32 AM EDT This study is for PACS storage only and not for interpretation. us Binu Oliver MD IMG OUTSIDE IMAGING W/OUT INTE RPRETATION Final Result Performing Organization Address [facility] Co de Phone Number [facility] documented in this encounter Visit Diagnoses Not on filedocumented in this encounter Care Teams Hat Checker Relationship Specialty Start Date End Date Ry Soriano MD [address] [place] [address] PCP - General Internal Medicine 07/29/18 documented as of this encounter Additional Source Comments The information contained in this document represents components of the legal health record. It is not the complete legal health record.[facility]
--- OUTSIDE RECORDS SUMMARY | 2024-10-27 10:42 | XMS_ITS | Data Portability ---
Author Organization [employer] [facility] Address [address] [place] [address] Care Team Providers Care Air And Hydronic Balancing Technician Name Role Phone HIM CCA OTHER Assessment [...] recorded. Lab BMP, serum or plasma 2023 [facility], [address] [place] [address], [phone] 19:24:42 Referral None recorded. Procedures None recorded. Surgeries None recorded. Imaging None recorded. Medication Orders potassium chloride ER 20 mEq tablet,ext ended release(pa rt/cryst) 2023 024 [facility] Not available 15:48:42 Patient TargetsNo targets recorded. [...] Updated DateTime 3 18 /min 86 /min 79572.4 g 98.2 [degF] 95 % 95 % 151/81 mm[Hg] Not Available [employer] - production 3 15:59:17 Date Recorded Heart rate Respiratory rate Body temperature Oxygen saturation Oxygen saturation in Arterial blood by Pulse oximetry Systolic And Diastolic Provider Name and Address Organization Details Last Updated DateTime 2 68 /min 16 /min 97.2 [degF] 96 % 96 % 177/86 mm[Hg] Not Available [employer] [facility] [employer] 2 10:45:26 Date Recorded Respiratory rate Heart rate Oxygen saturation Oxygen saturation in Arterial blood by Pulse oximetry Systolic And Diastolic Provider Name and Address Organization Details Last Updated DateTime 4 18 /min 80 /min 97 % 97 % 170/72 mm[Hg] Not Available [employer] [facility] [employer] 4 15:26:48 Social History None recorded. Functional [...] Note [id number] Cher Aldrich MD Main - [address] [address] 11/15/2021 10:44:55 12/23/2021 12:50:11 Essential hypertension 86592392 I10 [id number] Binu Miller MD Main - [address] [phone] 09/14/2022 15:59:15 09/15/2022 10:12:45 Cough 30792660 R05.9 [id number] Susan [facility] [address] [place] [phone] 12/29/2023 15:26:46 12/31/2023 08:42:03 Hyperglycemia [id number] R73.9 Health Concerns Section Related Observation LastModified by Organization Detai ls LastModified Time None Recorded Concern Status LastModified by Organization Details LastModified Time None Recorded Advance Directives Directive None Recorded Payers Insurance Date Sequence Insurance Name Policy Number Policy Dillard Covered Member ID Dillard Member ID Guarantor Name 09/14/2022 1 [facility] - DOS PRIOR TO 2022 - DUAL ELIGIBLE (MEDICARE REPLACEMENT/ADV ANTAGE - HMO) Lauren Crowley [id number] Lauren Crowley 12/29/2023 1 [facility] - DOS ON OR AFTER 2022 - DUAL ELIGIBLE - ALF OPTIONS AND ONE CARE (MEDICARE REPLACEMENT/ADV ANTAGE - HMO) Lauren Crowley [id number] Lauren Crowley OBGyn Episode No OBEpisode recorded.
== END 2024-10-27 10:42 | disposition home or self-care (01) ==
PROVIDERS: PCP Internal Medicine; Visit Provider Internal Medicine
DX: I10 Essential (primary) hypertension (principal); I25.10 Atherosclerotic heart disease of native coronary artery without angina pectoris; I73.9 Peripheral vascular disease, unspecified; E78.00 Pure hypercholesterolemia, unspecified; E11.65 Type 2 diabetes mellitus with hyperglycemia; Z79.4 Long term (current) use of insulin; E66.9 Obesity, unspecified; M17.10 Unilateral primary osteoarthritis, unspecified knee; Z23 Encounter for immunization; Z13.9 Encounter for screening, unspecified

== ENCOUNTER → 2024-10-27 09:45 | Outpatient (BNVA) | payer OTHER, SELFPAY | PROVIDERS: PCP Internal Medicine; Visit Provider Internal Medicine | DX: E11.51 Type 2 diabetes mellitus with diabetic peripheral angiopathy without gangrene (principal); I10 Essential (primary) hypertension; I25.10 Atherosclerotic heart disease of native coronary artery without angina pectoris; E78.00 Pure hypercholesterolemia, unspecified; E11.65 Type 2 diabetes mellitus with hyperglycemia; E66.9 Obesity, unspecified; Z23 Encounter for immunization; Z79.4 Long term (current) use of insulin; Z68.33 Body mass index [BMI] 33.0-33.9, adult; Z79.899 Other long term (current) drug therapy | CPT/HCPCS: 83036; 90471; 90714; 96127; 99212 ==

== ENCOUNTER 2024-11-18 08:52 | Outpatient (REF) | payer OTHER, SELFPAY ==
--- OUTSIDE RECORDS SUMMARY | 2024-08-21 06:45 | XMS_ITS ---
Author Organization [facility] Address [address] [place] [address] Care Team Providers Care Bird Sitter Name Role Phone Ry Soriano Primary Care Provider Unavailabl Clive Green Unavailable [phone] Encounters Encounter Location Date Provider [facility] [address] [address] 08/21/2024 Clive Vilchis Plan Of Treatment Next Appt Details Provider Name:Clive Vilchis , 03/02/2025 09:45:00 AM, [address] [place] [address], [address], Progress Notes * KEO Lauren BDOB:1945 ( 79 yo F)Acc No.[id number]:08/21/2024 Progress Note Patient: Lauren CHRISTIANSON Provider: Gus Vilchis DPM :1945 A ge:79 Y S ex:Female Date:08/21/2024 Address:[address] [place] [address] Kamala [facility] Pcp:Ry Soriano Subjective: * Chief Complaints: * [...] DPM Date: 0 08/21/2024 Generated for Ollie lea/Neida/Cammy on: 0 11/18/2024 09:43 AM EDT
--- OUTSIDE RECORDS SUMMARY | 2024-11-18 09:44 | XMS_ITS | Encounter Summary ---
Author Organization [facility] Address [address] [place] [address] Phone Care Team Providers Care Bait Maker Name Role Phone Ry Soriano MD Primary Care Provider [phone] Reason for Referral * - Closed Specialty Diagnoses / Procedures Referred By Contholly t Referred To Contact Procedures NM Bone Outside (No Interpretation) Binu Oliver MD Phone: tel: fax: mailto:[email or web address] Referral ID Status Reason Start Date Expiration Date Visits Re quested Visits Authorized [id number] Closed 08/16/2018 08/16/2019 1 1 Encounter Details Date Type Department Care Team (Late st Contact Info) Description 08/16/2018 Transcribe Orders [facility] [address] [place] [address] Pierre Contreras [address] [place] [address] [email or web address] Social History Tobacco Use Types Packs/Day Years [...] Care Team (Late st Contact Info) Description 02/03/2025 9:00 AM EST Office Visit [facility] [address] [place] [address] Jany Trevino PA-C [address] [place] [address] 05/13/2025 11:40 AM EST Office Visit [facility] [address] [place] [address] Sushma Arias MD [address] [place] [address] documented as of this encounter Results * US Vascular Outside (No Interpretation) (08/16/2018 10:32 AM EDT) Narrative SYSTEMGENERATED, DOCUMENTATION - 08/16/2018 10:32 AM EDT This study is for PACS storage only and not for interpretation. us Binu Oliver MD CV US VASCULAR Final Result * XR Lower Extremity Outside (No Interpretation) (08/16/2018 10:32 AM EDT) Narrative [facility] - 08/16/2018 10:32 AM EDT This study [...] INTE RPRETATION Final Result Performing Organization Address City/[facility]/ZIP Co de Phone Number [facility] * NM Bone Outside (No Interpretation) (08/16/2018 10:32 AM EDT) Narrative [facility] - 08/16/2018 10:32 AM EDT This study is for PACS storage only and not for interpretation. us Binu Oliver MD IMG OUTSIDE IMAGING W/OUT INTE RPRETATION Final Result Performing Organization Address [facility] Co de Phone Number [facility] documented in this encounter Visit Diagnoses Not on filedocumented in this encounter Care Teams Bait Maker Relationship Specialty Start Date End Date Ry Soriano MD [address] [place] [address] PCP - General Internal Medicine 07/29/18 documented as of this encounter Additional Source Comments The information contained in this document represents components of the legal health record. It is not the complete legal health record.[facility]
[2024-11-18 10:48] LABS: Blood Urea Nitrogen 18 mg/dL (9-16); Estimated Glomerular Filt Rate 43
== END 2024-11-18 08:53 | disposition home or self-care (01) ==
LOC: HO.HMGCLDS 08:52
PROVIDERS: PCP Internal Medicine; Visit Provider Radiology Vascular & Interventional Radiology
DX: R79.9 Abnormal finding of blood chemistry, unspecified (principal); R94.4 Abnormal results of kidney function studies
CPT/HCPCS: 36415; 82565; 84520

== ENCOUNTER 2024-12-09 09:44 | Outpatient (REF) | payer OTHER, SELFPAY ==
--- OUTSIDE RECORDS SUMMARY | 2024-08-21 06:45 | XMS_ITS ---
Author Organization [facility] Address [address] [place] [address] Care Team Providers Care General Internist Name Role Phone Ry Soriano Primary Care Provider Unavailabl Clive Green Unavailable [phone] Encounters Encounter Location Date [facility] [address] [address] 08/21/2024 Clive Vilchis Plan Of Treatment Next Appt Details Provider Name:Clive Vilchis , 03/02/2025 09:45:00 AM, [address] [place] [address], [address], Progress Notes * KEO Lauren BDOB:1945 ( 79 yo F)Acc No.[id number]:08/21/2024 Progress Note Patient: Lauren CHRISTIANSON Provider: Gus Vilchis DPM :1945 A ge:79 Y S ex:Female Date:08/21/2024 Address:[address] [place] [address] [address] [facility] Pcp:Ry Soriano Subjective: * Chief Complaints: * [...] 08/21/2024 Generated for Ollie lea/Neida/Cammy on: 0 12/09/2024 11:32 AM EDT
--- OUTSIDE RECORDS SUMMARY | 2024-12-09 11:33 | XMS_ITS | Encounter Summary ---
Author Organization [facility] Address [address] [place] [address] Phone Care Team Providers Care Inspector Raw Quartz Name Role Phone Ry Soriano MD Primary Care Provider [phone] Reason for Referral * - Closed Specialty Diagnoses / Procedures Referred By Contholly t Referred To Contact Procedures NM Bone Outside (No Interpretation) Binu Oliver MD Phone: tel: fax: mailto:[email or web address] Referral ID Status Reason Start Date Expiration Date Visits Re quested Visits Authorized [id number] Closed 08/16/2018 08/16/2019 1 1 Encounter Details Date Type Department Care Team (Late st Contact Info) Description 08/16/2018 Transcribe Orders [facility] [address] [place] [address] Pierre Contreras [address] [place] [address] [email or web address] Social History Tobacco Use Types [...] AM EST Office Visit [facility] [address] [place] [address] Jany Trevino PA-C [address] [place] [address] 05/13/2025 11:40 AM EST Office Visit [facility] [address] [place] [address] Sushma Arias MD [address] [place] [address] documented as of this encounter Results * US Vascular Outside (No Interpretation) (08/16/2018 10:32 AM EDT) Narrative SYSTEMGENERATED, DOCUMENTATION - 08/16/2018 10:32 AM EDT This study is for PACS storage only and not for interpretation. us Binu Oliver MD CV US VASCULAR Final Result * XR Lower Extremity Outside (No Interpretation) (08/16/2018 10:32 AM EDT) Narrative [facility] - 08/16/2018 10:32 AM EDT This [...] INTE RPRETATION Final Result Performing Organization Address City/[facility]/ZIP Co de Phone Number [facility] * NM Bone Outside (No Interpretation) (08/16/2018 10:32 AM EDT) Narrative [facility] - 08/16/2018 10:32 AM EDT This study is for PACS storage only and not for interpretation. us Binu Oliver MD IMG OUTSIDE IMAGING W/OUT INTE RPRETATION Final Result Performing Organization Address [facility] Co de Phone Number [facility] documented in this encounter Visit Diagnoses Not on filedocumented in this encounter Care Teams Inspector Raw Quartz Relationship Specialty Start Date End Date Ry Soriano MD [address] [place] [address] PCP - General Internal Medicine 07/29/18 documented as of this encounter Additional Source Comments The information contained in this document represents components of the legal health record. It is not the complete legal health record.[facility]
--- OUTSIDE RECORDS SUMMARY | 2024-12-09 11:33 | XMS_ITS | Encounter Summary ---
Author Organization [facility] Address [address] [place] [address] Phone Care Team Providers Care Tanker Driver Name Role Phone Ry Soriano MD Primary Care Provider [phone] Encounter Details Date Type Department Care Team (Late Contact Info) Description 07/07/2021 Anti-coag visit VIRTUAL DEPARTMENT Unknown, Unknown, Social History Tobacco Use Types Packs/Day Years Used Date Smoking Tobacco: Former Cigarettes 0.5 25 Smokeless Tobacco: Never Alcohol Use Standard Drinks/Week Comments Not Currently 0 (1 standard drink = 0.6 oz pur e alcohol) Comments No Sex and Gender Information Value Date Recorded Sex Assigned at Female 05/20/2020 1:47 PM EST Legal Sex Female 11:31 AM EDT Gender Identity Female 05/20/2020 1:47 PM EST Sexual Orientation Straight 05/09/2024 8: 59 AM EST documented as of this encounter Plan of Treatment Upcoming Encounters Date Type Department Care Team (Late Contact Info) Description 02/03/2025 9:00 AM EST Office Visit [facility] [address] [place] [address] Jany Trevino PA-C [address] [place] [address] 05/13/2025 11:40 AM EST Office Visit [facility] [address] [place] [address] Sushma Arias MD [address] [place] [address] [email or web address] documented as of this encounter Visit Diagnoses Not on filedocumented in this encounter Care Teams Tanker Driver Relationship Specialty Start Date End Date Ry Soriano MD [address] [place] [address] Drive [address] [place] [address] PCP - General Internal Medicine 07/29/18 documented as of this encounter Additional Source Comments The information contained in this document represents components of the legal health record. It is not the complete legal health record.[facility]
--- OUTSIDE RECORDS SUMMARY | 2024-12-09 11:33 | XMS_ITS | Encounter Summary ---
Author Organization [facility] Address [address] [facility] [address] [place] [address] Phone Care Team Providers Care Business Machines Teacher Name Role Phone Ry Soriano MD Primary Care Provider [phone] Encounter Details Date Type Department Care Team (Late Contact Info) Description 12/20/2018 Procedure Pass [facility] Periop [address] [place] [address] Social History Tobacco Use Types Packs/Day Years Used Date Smoking Tobacco: Former Cigarettes 0.5 25 Smokeless Tobacco: Never Alcohol Use Standard Drinks/Week Comments Not Currently 0 (1 standard drink = 0.6 oz pur e alcohol) Comments Unknown Sex and Gender Information Value [...] AM EST Office Visit [facility] [address] [place] [address] Jany Trevino PA-C [address] [place] [address] 05/13/2025 11:40 AM EST Office Visit [facility] [address] [place] [address] Sushma Arias MD [address] [place] [address] [email or web address] documented as of this encounter Visit Diagnoses Not on filedocumented in this encounter Care Teams Business Machines Teacher Relationship Specialty Start Date End Date Ry Soriano MD [address] [place] [address] [address] [place] [address] PCP - General Internal Medicine 07/29/18 documented as of this encounter Additional Source Comments The information contained in this document represents components of the legal health record. It is not the complete legal health record.[facility]
--- OUTSIDE RECORDS SUMMARY | 2024-12-09 11:33 | XMS_ITS | Clinical Summary ---
Author Organization [facility] Address [address] [place] [phone] Phone Care Team Providers Care Senior Fund Accountant Name Role Phone Ry Soriano MD Primary Care Provider [phone] Allergies No known active allergies Medications atorvastatin (LIPITOR) 80 MG tablet Take 80 mg by mouth every morning. Active cholecalcifero l (VITAMIN D3) 25 MCG (1,000 unit) tablet Take 1,000 Units by mouth daily. Active metoprolol succinate (TOPROL-XL) 25 MG 24 hr tablet Take 25 mg by mouth 2 (two) times a day. Active torsemide (DEMADEX) 20 MG tablet Take 20 mg by mouth daily. Active lisinopril (PRINIVIL,ZEST RIL) 30 MG tablet Take 30 mg by mouth daily. 1 Active nitroglycerin (NITROSTAT) 0.4 MG SL tablet 3 Active amLODIPine (NORVASC) 5 MG tablet Take 1 tablet by mouth every morning. 3 Active aspirin 81 MG EC tablet Take 81 mg by mouth daily. Active ONETOUCH UKTRA2 meter kitIndications :Type 2 diabetes mellitus with hyperglycemia, with long-term current use of insulin To test blood glucose TID, dx E11.65 on insulin 1 each 3 Active ONETOUCH DELICA LANCETS 30 gauge MiscIndication s:Type 2 diabetes mellitus with hyperglycemia, with long-term current use of insulin 1 each by Miscellaneous route 3 (three) times a day before meals. Dx E11.65 on insulin 300 each 3 3 Active ONETOUCH ULTRA TEST Strp stripsIndicati ons:Type 2 diabetes mellitus with hyperglycemia, with long-term current use of insulin 1 each by Miscellaneous route 3 (three) times a day before meals. 300 strip 2 3 Active cyanocobalamin , vitamin B-12, 1000 MCG tablet Take 1,000 mcg by mouth daily. Active metFORMIN (GLUCOPHAGE) 500 MG tabletIndicati ons:Type 2 diabetes mellitus with other specified complication, with long-term current use of insulin Take 1 tablet (500 mg total) by mouth 2 (two) times a day. 180 tablet 1 5 Active Additional Information Patient taking differently:500 mg OralDaily with breakfast, Reported on 11/05/2024 insulin glargine (LANTUS SOLOSTAR U-100 INSULIN) 100 unit/mL (3 mL) InPn injection penIndications :Type 2 diabetes mellitus with other specified complication, with long-term current use of insulin Inject 23-27 Units under the skin daily. 30 mL 1 5 Active Additional Information Patient taking differently: 9-14 UnitsSubcutaneousNightly, Reported on 11/05/2024 insulin aspart U-100 (NOVOLOG FLEXPEN U-100 INSULIN) 100 unit/mL (3 mL) injection penIndications :Type 2 diabetes mellitus with other specified complication, with long-term current use of insulin Inject 6-34 Units under the skin 3 (three) times a day before meals. 105 mL 1 5 Active BD INSULIN PEN NEEDLE UF SHORT 31 gauge x 5/16 NdleIndication s:Type 2 diabetes mellitus with other specified complication, with long-term current use of insulin 1 each by Miscellaneous route 4 (four) times a day before meals and nightly. 400 each 3 5 Active methIMAzole (TAPAZOLE) 5 MG tabletIndicati ons:Toxic thyroid nodule TAKE ONE TABLET BY MOUTH EVERY DAY 90 tablet 1 5 Active Active Problems Problem Noted Date Diagnosed Date Vitamin B12 deficiency 11/08/2024 Assessment & Plan (11/08/2024 8:36 PM EDT): She has been on metformin for a long time. Her vitamin B12 level was too low in the 200s in 03/2024. She has been taking 1000 mcg B12 orally daily. -Added B12 level to labs today Hypercalcemia 11/08/2024 Assessment & Plan (11/08/2024 8:37 PM EDT): Slight hypercalcemia noted with elevated total protein in 03/2024. Patient is not on a thiazide or lithium. -Added PTH and 25 OHD to CMP Type 2 diabetes mellitus with proteinuria 2023 Assessment & Plan (11/08/2024 8:16 PM EDT): In 12/2023 estimated GFR slightly decreased at 58, stable. Urine microalbumin/creatinine elevated at 381 in 12/2023. BP at target today. On lisinopril 30 mg daily. Assessment & Plan (03/14/2024 10:30 AM EST): Good control by DexGames2Win G7 download with average glucose 148, GMI 6.9. Slight postprandial elevations after breakfast and after dinner. Last A1c 7.5% in 12/2023. No frequent or severe hypoglycemia. Patient adjusted her Lantus insulin appropriately to prevent fasting/overnight lows. Has been using 20 units of Lantus at bedtime NovoLog by sliding scale around 20 units with meals 3 times daily. Estimated GFR slightly decreased at 58, stable. Urine microalbumin/creatinine elevated at 381 in 12/2023. SBP slightly elevated today at 146 and repeated testing 140. On lisinopril 30 mg daily. Received Rx on extra-depth orthopedic shoes by new high lead yarder Dr. Vilchis recently. -Labs today -Adjust Lantus by small increments of 2 to 4 units pending on fasting glucose. -Decrease NovoLog by 2 to 4 units if hypoglycemia within 2 to 3 hours after meals. -Continue metformin -? Adding an SGLT2 pending on labs -B12 was low in 12/2023 and patient has been taking 1000 mcg B12 p.o. since then what she will continue. Decreased vibratory sensation on toes without much symptoms. -Nonpalpable pedal pulses with occasional cramping and callus with walking. May need further evaluation. -Call if problem with blood sugars -Continue to use Dexcom G7 Vitamin D deficiency, unspecified 12/15/2023 Assessment & Plan (03/14/2024 10:27 AM EST): 25 OHD level at target in 12/2023. -Continue current replacement dose. -Discussed importance of adequate calcium, vitamin D intake, regular weightbearing exercises and fall prevention Numbness and tingling of right arm and leg 09/06 Assessment & Plan (09/07/2023 10:37 AM EDT): She has been dealing with numbness in her right arm from the shoulder down through her fingers for the last month and a half. She woke up from sleeping like this. The numbness hasn't improved at all. This is what caused her to go to the ER on 08/19. She is now not able to grib the shifter in her car and move it without using her left hand. She is not able to hold her cane for long. She is now experiencing numbness and tingling down through her right leg to her knee, she is also having some in her groin area as well. Stressed she needs to call her PCP to be seen and she should not put this off. 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 24-hour radioactive iodine uptake was slightly elevated at 30.1%. Has been treated with methimazole since diagnosis. TFTs were normal on 5 mg daily methimazole in 12/2023. Thyroid ultrasound has not been done. No cold nodule reported on I-123 scan in 06/2019. No compression symptoms in the thyroid bed. Clinically euthyroid. -Check TFTs today -Adjust methimazole pending on labs. -Monitor thyroid size clinically. If compression symptoms, schedule ultrasound Assessment & Plan (06/10/2024 9:51 AM EDT): Blood work was entered by Dr Arias at her last visit, reminded her to have it done Assessment & Plan (03/14/2024 10:22 AM EST): Diagnosed with right mid toxic nodule in 06/2019. 24-hour radioactive iodine uptake was slightly elevated at 30.1%. Has been treated with methimazole since diagnosis. TFTs were normal on treatment in 12/2023. Thyroid ultrasound has not been done. No cold nodule reported on I-123 scan in 06/2019. No compression symptoms in the thyroid bed. Clinically euthyroid. -Check TFTs today -Adjust methimazole pending on labs. -Monitor thyroid size clinically. If compression symptoms, schedule ultrasound Assessment & Plan (09/07/2023 10:33 AM EDT): She is consistent with taking her methimazole. Had blood work done at [facility] will get results to determine if medication adjustments are needed Assessment & Plan (06/06/2023 9:04 AM EST): She is consistent with taking her methimazole. Will check levels to determine if medication adjustments are needed Assessment & Plan (02/16/2023 9:53 AM EST): She is consistent with taking her methimazole. She wonders if we can cut back on the medication. Will order blood work to see if we can trial lowering the dose for her Assessment & Plan (11/13/2022 10:04 AM EDT): Will check levels to determine if medication adjustments are needed Assessment & Plan (08/07/2022 4:47 PM EDT): Has been treated with methimazole for at least 2 years. Her lowest dose was 2.5 mg daily. Lately she has been taking 5 mg daily. She is clinically euthyroid. Has multiple extrasystoles on exam. Plan to continue 5 mg methimazole daily. Check TFTs today. She denies any compression symptoms in the thyroid bed. I am waiting for old records to decide if she needs any ultrasound repeated. Type 2 diabetes mellitus wit h diabetic peripheral angiopathy without gangrene, with long-term current use of insulin 08/07/2022 Assessment & Plan (11/08/2024 8:14 PM EDT): Good control by Dexcom CGM download with average glucose 150, GMI 6.9%, time in range 81%. No frequent or severe hypoglycemia. Occasional mild hypoglycemia usually few hours after the evening meal. Patient is giving her NovoLog by sliding scale 10 to 15 minutes before meals, denies NovoLog administration after meal. She is also on Lantus insulin, she will adjust her dose between 8 to 14 units at that time. Her metformin dose was decreased to 500 mg daily from twice a day in early August she had a left leg stent in which improved her claudication. She is scheduled for the same procedure on the right leg in early December. - We reviewed symptoms, prevention and treatment of hypoglycemia. If she continues to have low blood sugars within 2 to 3 hours after meals, she may decrease her NovoLog sliding scale by 2 to 4 units. -Encouraged to call with blood sugar problems -For now continue the lower dose 500 mg metformin once a day. -Labs today - Routine follow-up scheduled with her high lead yarder next week - Follow-up with Roxanna on 02/03/2025 and with in 05/2025 Assessment & Plan (06/10/2024 9:53 AM EDT): Control is good based upon the patient's dexcom G7 download. No frequent or severe hypoglycemia. Control is doing very well, will maintain her current insulin regimen. Continue to work on eating healthy and being active. To call or message with any issues managing her glucose levels. Up to date with [facility], scheduled to see at the end of the month. Seeing podiatry. Labs ordered Assessment & Plan (09/07/2023 10:35 AM EDT): Control is good based upon the patient's dexcom G7 download. She is still having some lows over night. Will lower her lantus to 23 units to see if this helps prevent the lows. Reviewed how to treat and prevent hypoglycemia. Continue to work on eating healthy and being active. To call or message with any issues managing her glucose levels. Up to date with [facility]. Scheduled to see podiatry. Labs were done at [facility] will call for results Assessment & Plan (06/06/2023 9:06 AM EST): Control is good based upon the patient's dexcom G7 download. She was having more frequent episodes of hypoglycemia. She was not sure what the cause of the lows was. We lowered her lantus and her novolog sliding scale. Since the insulin doses have been lowered her glucose levels are better. Reviewed how to treat and prevent hypoglycemia. Continue to work on eating healthy and being active. To call or message with any issues managing her glucose levels. Up to date with [employer]. Labs ordered today Assessment & Plan (02/16/2023 10:04 AM EST): Control is reasonable based upon the patient's SMBG readings. No frequent hypoglycemia. She recently has had a couple episodes of severe hypoglycemia based upon the definition of less than 54. She is not sure what caused the lows, she corrected with orange juice and was fine. She hasn't received her dexcom supplies from [email or web address] yet. The office called today to see what is going on. They told us to have her call them and they will send out the supplies. Discussed being careful with her insulin dosing to help prevent possible lows. Continue to work on eating healthy and trying to be active. To call or message with any issues managing her glucose levels. Up to date with [employer]. Labs ordered today Assessment & Plan (11/13/2022 10:05 AM EDT): Control is good based upon the patient's freestyle kisha 14 day sensor download. No frequent or severe hypoglycemia. She has had a couple lows, she is not sure of the cause. She will correct with juice and then is fine. Will maintain her regimen. Continue to work on eating healthy and being active. To call or message with any issues managing her glucose levels. Up to date with [employer]. Labs ordered today Assessment & Plan (08/07/2022 4:45 PM EDT): Reasonable control by SMBG. Last A1c is not available. Waiting for old records from [facility]. Taking 27 units of Lantus at bedtime and NovoLog by sliding scale between 8 to 36 units 3 times a day before meals. She is also on 1000 mg metformin twice a day. Patient was using the kisha 2 CGM, her prescription was canceled by [facility] because of not getting supporting medical records. No frequent or severe hypoglycemia. I asked patient to call [facility] for prescription on Kisha 2 to be faxed to our office. We will have labs today. Keep current treatment for now until kisha download is available. Reviewed symptoms, prevention and treatment of hypoglycemia. Encouraged to call if blood sugar below 70 or over 250 repeatedly. 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, left 12/20/2018 Pain due to total left knee replacement 08/07/19 19 Long-term current use of insulin for diabetes me llitus Assessment & Plan (06/10/2024 9:53 AM EDT): Will maintain her insulin dosing HTN (hypertension) HLD (hyperlipidemia) GERD (gastroesophageal reflux disease) Encounters Date Type Department Care Team Description 11/05/2024 12:26 PM EDT - 11/05/2024 11:59 PM EDT Hospital Encounter [facility] [address] [place] [address] [place] [address] Sushma Arias MD Discharge Disposition: Home or Self Care 11/05/2024 11:20 AM EDT Office Visit [facility] [address] [place] [address] [place] [address] Sushma Arias MD Type 2 diabetes mellitus with diabetic peripheral angiopathy without gangrene, with long-term current use of insulin (Primary Dx); Toxic thyroid nodule; Type 2 diabetes mellitus with proteinuria; Vitamin B12 deficiency; Hypercalcemia 10/25/2024 Refill [facility] [address] [place] [address] [place] [address] Sushma Arias MD Medication Refill from Last 3 Months Social History Tobacco Use Types Packs/Day Years Used Date Smoking Tobacco: Former Cigarettes 0.5 25 1 988 - 2012 Smokeless Tobacco: Never Tobacco Cessation:Counseling Given: Not Answered Alcohol Use Standard Drinks/Week Comments Not Currently 0 (1 standard drink = 0.6 oz pur e alcohol) Education Answer Date Recorded Are you interested in more education? Not on fabiola e 07/27/2022 Are you concerned about learning? Not on file 07/27/2022 No 07/27/2022 No 07/27/2022 Digital Access Answer Date Recorded No 08/23/2022 No 08/23/2022 Reliable internet access at home? Not on file 08/23/2022 Device with a working camera? Not on file Comments No Sex and Gender Information Value Date Recorded Sex Assigned at Female 05/20/2020 1:47 PM EST Legal Sex Female 11:31 AM EDT Gender Identity Female 05/20/2020 1:47 PM EST Sexual Orientation Straight 05/09/2024 8: 59 AM EST Last Filed Vital Signs Vital Sign Reading Time Taken Comments Blood Pressure 128/68 11/05/2024 11:26 AM EDT Pulse 77 11/05/2024 11:26 AM EDT Temperature 36.3 C (97.4 F) 12/07/2022 1:53 PM EDT Respiratory Rate 18 07/06/2021 10:0 0 AM EDT Oxygen Saturation 90% 11/05/2024 11: 26 AM EDT Inhaled Oxygen Concentration - - Weight 89.7 kg (197 lb 12.8 oz) 025 11:26 AM EDT Height 165.1 cm (5' 5 ) 11/05/2024 11:2 6 AM EDT Body Mass Index 32.92 11/05/2024 11:26 AM EDT Plan of Treatment Upcoming Encounters Date Type Department Care Team (Late st Contact Info) Description 02/03/2025 9:00 AM EST Office Visit [facility] [address] [place] [address] [place] [address] Jany Trevino PA-C [address] [place] [id number] 05/13/2025 11:40 AM EST Office Visit [facility] [address] [place] [address] [place] [address] Sushma Arias MD [address] [place] [address] [address] [place] [address] [email or web address] Health Maintenance Due Date Last Done Comments DEPRESSION SCREENING 1957 HEPATITIS C SCREENING 08/18/1963 ZOSTER VACCINES (1 of 2) 08/18/1995 OSTEOPOROSIS SCREENING INITIAL (ONE-TIME) 2010 DIABETIC EYE EXAM 12/12/2018 RSV VACCINE (1 - 1-dose 75+ series) 2020 Adult Td,Tdap Booster 07/28/2024 07/28/2014 INFLUENZA VACCINE (#1) 2024 2, 01/05/2021, 01/23/2020, Additional history exists COVID-19 VACCINE ( season) 2024 06/28/2020, 05/31/2020 HEMOGLOBIN A1C 12/11/2024 06/10/2024, 03/02, 12/11/2023, Additional history exists BLOOD PRESSURE 05/08/2025 11/05/2024 CREATININE LEVEL 11/05/2025 11/05/2024, 01/2024, 12/11/2023, Additional history exists POTASSIUM LEVEL 11/05/2025 11/05/2024, 03/02, 12/11/2023, Additional history exists SMOKING STATUS SCREENING (Every 5 Years) 11/05/2029 11/05/2024 PNEUMOCOCCAL VACCINES (50+ years) Completed 05/30/2019, 04/16/2018, 04/21/2016 HEPATITIS A VACCINES Aged Out No long er eligible based on patient's age to complete this topic HIB VACCINES Aged Out No longer eligi ble based on patient's age to complete this topic MENINGOCOCCAL VACCINES (ACWY) Aged Out No longer eligible based on patient's age to complete this topic MENINGOCOCCAL VACCINES (B) Aged Out N o longer eligible based on patient's age to complete this topic Medical Devices Implanted Type Area Armed Guard Device Identifier Shelf Expiration Date Model / Serial / Lot Knee Wedge Size 3 Plate Bone Tibial Stemmed Nexgen Precoat 03c Cs/1bx/1ea - [id number] Implanted:Qty: 1 on 12/20/2018 by Binu Oliver MD at [facility] NODATA Left: Knee MANJEET / DIV OF [employer] SQUIBB 06/30/2028 [id number] / / Knee Stem 145mm 100 Od 14 Software Engineer Backend Tivanium Tibial Solid Screw Primary Straight Impl Nexgen - [id number] Implanted:Qty: 1 on 12/20/2018 by Binu Oliver MD at [facility] STANDARD Left: Knee MANJEET / DIV OF [employer] Andre Phillipe 05/30/2028 [id number] / / [id number] Knee Implant 3 4 12mm Size Cd 3to4 Femoral Articular Surface Nexgen Lps Flex Fixed 05 - [id number] Implanted:Qty: 1 on 12/20/2018 by Binu Oliver MD at [facility] STANDARD Left: Knee MANJEET / DIV OF [employer] Andre Phillipe 07/30/2026 [id number] / / [id number] Block Augment 10mm 5448 03 27 Sz Tibial Nexgen Trabecular Metal Rt Lateral Lt Medial - [id number] Implanted:Qty: 1 on 12/20/2018 by Binu Oliver MD at [facility] STANDARD Left: Knee [employer]JEET / DIV OF [employer] Andre Phillipe 07/01/2023 [id number] / / [id number] Block Augment 10.0mm Size 3 Tibial Nexgen Trabecular Metal Lt Lateral Rt Medial - [id number] Implanted:Qty: 1 on 12/20/2018 by Binu Oliver MD at [facility] STANDARD Left: Knee MANJEET / DIV OF [employer] 07/31/2023 [id number] / / [id number] Knee Implant 38x8.5mm Patella Nexgen All Poly Standard 06 - [id number] Implanted:Qty: 1 on 12/20/2018 by Binu Oliver MD at [facility] STANDARD Left: Knee MANJEET / DIV OF [employer] 05/30/2026 [id number] / / [id number] Block Augment 5mm Knee Femoral Nexgen Trabecular Metal Distal Size D 19 - [id number] Implanted:Qty: 1 on 12/20/2018 by Binu Oliver MD at [facility] STANDARD Left: Knee MANJEET / DIV OF [employer] 03/01/2022 [id number] / / [id number] Block Augment 5mm Knee Femoral Nexgen Trabecular Metal Distal Size D 19 - [id number] Implanted:Qty: 1 on 12/20/2018 by Binu Oliver MD at [facility] STANDARD Left: Knee MANJEET / DIV OF [employer] 07/01/2023 [id number] / / [id number] Knee Implant Component Femoral Nexgen Complete Legacy Zimaloy Constrained Condylar Lt Size D Cs/1bx/1ea - [id number] Implanted:Qty: 1 on 12/20/2018 by Binu Oliver MD at [facility] STANDARD Left: Knee [employer]JEET / DIV OF [employer] 05/02/2028 [id number] / / [id number] Knee Stem 200mm 155 Od 13 Software Engineer Backend Tivanium Tibial Solid Screw Primary Straight Impl Nexgen - [id number] Implanted:Qty: 1 on 12/20/2018 by Binu Oliver MD at [facility] STANDARD Left: Knee MANJEET / DIV OF [employer] 11/30/2022 [id number] / / [id number] Knee Implant 12mm Size 3 Component Articular Surface Nexgen Uhmwpe Lcck Cd Bx/1ea - [id number] Implanted:Qty: 1 on 07/04/2021 by Binu Oliver MD at [facility] STANDARD Left: Knee MANJEET / DIV OF [employer] [id number] 05/31/2027 [id number] / / [id number] Left Tkr Cement Bone 40gr [place] [employer] Gentamicin Radiopaque Deangelo/1ea - [id number] Implanted:Qty: 2 on 12/20/2018 by Binu Oliver MD at [facility] Left: Knee MANJEET / DIV OF [employer] 05/30/2021 [id number] / / [id number] Procedures Procedure Name Priority Date/Time Associated Diagnosis Comments MONOCLONAL PROTEIN STUDY, SERUM Routine 11/05/2024 12:36 PM EDT Hypercalcemia PARATHYROID HORMONE (PTH) Routine 11/05/2024 12:36 PM EDT Hypercalcemia METHYLMALONIC ACID, SERUM Routine 11/05/2024 12:36 PM EDT Type 2 diabetes mellitus with proteinuria CBC AND DIFFERENTIAL Routine 11/05/2024 12:29 PM EDT Hypercalcemia VITAMIN B12 Routine 11/05/2024 12:29 PM EDT Type 2 diabetes mellitus with proteinuria 25-OH VITAMIN D Routine 11/05/2024 12:29 PM EDT Hypercalcemia PHOSPHORUS Routine 11/05/2024 12:29 PM EDT Hypercalcemia COMPREHENSIVE METABOLIC PANEL Routine 11/05/2024 12:29 PM EDT Hypercalcemia TSH Routine 11/05/2024 12:29 PM EDT Toxic thyroid nodule FREE T4 Routine 11/05/2024 12:29 PM EDT Toxic thyroid nodule FREE T3 Routine 11/05/2024 12:29 PM EDT Toxic thyroid nodule HEMOGLOBIN A1C Routine 06/10/2024 10:06 AM EDT Type 2 diabetes mellitus with other specified complication, with long-term current use of insulin from Last 3 Months or Most Recently Relevant to Health Maintenance Results * (ABNORMAL) Monoclonal protein study, serum (11/05/2024 12:36 PM EDT) M-protein GK Test component not applicable or not reported. g/dL [facility] [address] M-protein GL Test component not applicable or not reported. g/dL [facility] [address] M-protein AK Test component not applicable or not reported. g/dL [facility] [address] M-protein AL Test component not applicable or not reported. g/dL [facility] [address] M-protein MK Test component not applicable or not reported. g/dL [facility] [address] M-protein ML Test component not applicable or not reported. g/dL [facility] Glycosylation Test component not applicable or not reported. [facility] Flag, M-protein Isotype Negative Negative [facility] Interpretation No monoclonal protein detected. [facility] Comment: (NOTE) ADDITIONAL INFORMATION The submitted sample was assayed by five separate immunopurifications for IgG, IgA, IgM, kappa and lambda. The result reflects the findings of either no monoclonal protein detected or those monoclonal immunoglobulins that were detected. This test was developed and its performance characteristics determined by [facility] in a manner consistent with CLIA requirements. This test has not been cleared or approved by the U.S. Food and Drug Administration. IgA 473(H) 61 - 356 mg/dL [facility] IgM 102 37 - 286 mg/dL [facility] IgG 1,170 767 - 1,590 mg/dL [facility] Therapeutic Antibody Administered? No [facility] Comment:Corrected on 11/10 A T 1205: previously reported as NO Blood 11/05/2024 12:3 6 PM EDT 11/05/2024 12:46 PM EDT us Sushma Arias MD LAB BLOOD ORDERABLES Edited Re sult - Final [facility] [address] [place] [address] * Methylmalonic acid, serum (11/05/2024 12:36 PM EDT) METHYLMALONIC ACID 0.15 <=0.40 nmol/mL [facility] DPT OF LAB MED AND PAT+ Comment: (NOTE) ADDITIONAL INFORMATION This test was developed and its performance characteristics determined by [facility] in a manner consistent with CLIA requirements. This test has not been cleared or approved by the U.S. Food and Drug Administration. Blood 11/05/2024 12:3 6 PM EDT 11/05/2024 12:46 PM EDT us Sushma Arias MD LAB BLOOD ORDERABLES Final Res ult [facility] DPT OF LAB MED AND PAT+ [address] [place] [address] * (ABNORMAL) Parathyroid hormone (PTH) (11/05/2024 12:36 PM EDT) PARATHYROID HORMONE 100(H) 15 - 65 pg/mL [facility] Blood 11/05/2024 12:3 6 PM EDT 11/05/2024 12:47 PM EDT us Sushma Arias MD LAB BLOOD ORDERABLES Final Res ult [facility] [address] [place] [address] * (ABNORMAL) Comprehensive metabolic panel (11/05/2024 12:29 PM EDT) SODIUM 139 133 - 146 mmol/L [facility] POTASSIUM 3.5 3.3 - 5.1 mmol/L [facility] CHLORIDE 104 96 - 108 mmol/L [facility] CO2 21 21 - 35 mmol/L [facility] BUN 12 6 - 19 mg/dL [facility] CREATININE 1.10 0.5 - 1.5 mg/dL [facility] GLUCOSE 88 70 - 99 mg/dL [facility] ALBUMIN 4.0 3.9 - 4.8 g/dL [facility] TOTAL PROTEIN 7.6 6.5 - 8.0 g/dL [facility] CALCIUM 10.0 8.4 - 10.3 mg/dL [facility] ALKALINE PHOSPHATASE 114 39 - 117 U/L [facility] TOTAL BILIRUBIN 0.3 0.0 - 1.2 mg/dL [facility] AST 22 0 - 37 U/L [facility] ALT 8 0 - 40 U/L [facility] GLOBULIN 3.6 1 - 4.8 g/dL [facility] EGFR 51(L) >59 mL/min/1.7 3m2 [facility] Comment:Estimated glomerular filtration rate calculated using the CKD-EPI refit equation. ANION GAP 18 10 - 20 mmol/L [facility] Blood 11/05/2024 12:2 9 PM EDT 11/05/2024 12:45 PM EDT us Ssuhma Arias MD LAB BLOOD ORDERABLES Final Res ult Performing Organization Address City/[facility]/ZIP Co de Phone Number [address] [address] * 25-OH vitamin D (11/05/2024 12:29 PM EDT) 25 [place] VIT D (TOTAL) 43 30 - 60 ng/mL [facility] Blood 11/05/2024 12:2 9 PM EDT 11/05/2024 12:45 PM EDT us Sushma Arias MD LAB BLOOD ORDERABLES Final Res ult Performing Organization Address [facility]/ZIP Co de Phone Number [address] [address] * (ABNORMAL) CBC and differential (11/05/2024 12:29 PM EDT) WBC 10.33 4.00 - 11.00 K/uL [facility] RBC 3.60(L) 4.00 - 5.20 M/uL [facility] HGB 9.1(L) 12.0 - 16.0 g/dL [facility] HCT 31.6(L) 36.0 - 46.0 % [facility] PLT 359 150 - 450 K/uL [facility] MCV 87.8 80.0 - 100.0 fL [facility] MCH 25.3(L) 27.0 - 31.0 pg [facility] MCHC 28.8(L) 32.0 - 36.0 g/dL [facility] RDW 17.2(H) 11.5 - 14.5 % [facility] MPV 11.8 8.4 - 12.0 fL [facility] NRBC 0.00 0.00 /100 WBCs [facility] ABSOLUTE NRBC 0.00 0.00 K/uL [facility] DIFF METHOD Auto [facility] NEUTS 65.6 48.0 - 76.0 % [facility] LYMPHS 26.4 18.0 - 41.0 % [facility] MONOS 4.6 4.0 - 11.0 % [facility] EOS 2.6 0.0 - 5.0 % [facility] BASOS 0.4 0.0 - 1.5 % [facility] Granulocytes, immature (%) 0.4 0.0 - 0.9 % [facility] ABSOLUTE NEUTS 6.77 1.92 - 7.60 K/uL [facility] ABSOLUTE LYMPHS 2.73 0.72 - 4.10 K/uL [facility] ABSOLUTE MONOS 0.48 0.16 - 1.10 K/uL [facility] ABSOLUTE EOS 0.27 0.00 - 0.50 K/uL [facility] ABSOLUTE BASOS 0.04 0.00 - 0.15 K/uL [facility] Granulocytes, immature 0.04 0.00 - 0.09 K/uL [facility] Blood 11/05/2024 12:2 9 PM EDT 11/05/2024 12:45 PM EDT us Sushma Arias MD LAB BLOOD ORDERABLES Final Res ult [facility] [address] [place], [place] [id number] * Free T3 (11/05/2024 12:29 PM EDT) FREE T3 2.7 2.0 - 4.4 pg/mL [facility] Blood 11/05/2024 12:2 9 PM EDT 11/05/2024 12:45 PM EDT us Sushma Arias MD LAB BLOOD ORDERABLES Final Res ult Performing Organization Address [facility]/ZIP Co de Phone Number [address] [address] * TSH (11/05/2024 12:29 PM EDT) TSH 1.07 0.27 - 4.20 uIU/mL [facility] Blood 11/05/2024 12:2 9 PM EDT 11/05/2024 12:45 PM EDT us Sushma Arias MD LAB BLOOD ORDERABLES Final Res ult Performing Organization Address [facility] Co de Phone Number [address] [address] * (ABNORMAL) Free T4 (11/05/2024 12:29 PM EDT) FREE T4 0.8(L) 0.9 - 1.7 ng/dL [facility] Blood 11/05/2024 12:2 9 PM EDT 11/05/2024 12:45 PM EDT us Sushma Arias MD LAB BLOOD ORDERABLES Final Res ult Performing Organization Address [facility] Co de Phone Number [address] [address] * Phosphorus (11/05/2024 12:29 PM EDT) PHOSPHORUS 3.5 2.7 - 4.5 mg/dL [facility] Blood 11/05/2024 12:2 9 PM EDT 11/05/2024 12:45 PM EDT us Sushma Arias MD LAB BLOOD ORDERABLES Final Res ult Performing Organization Address [facility]/ZIP Co de Phone Number [address] [address] * Vitamin B12 (11/05/2024 12:29 PM EDT) VITAMIN B12 1,131 232 - 1,245 pg/mL [facility] Blood 11/05/2024 12:2 9 PM EDT 11/05/2024 12:45 PM EDT us Sushma Arias MD LAB BLOOD ORDERABLES Final Res ult [address] [address] * (ABNORMAL) Hemoglobin A1c (06/10/2024 10:06 AM EDT) HEMOGLOBIN A1C 7.2(H) 4.3 - 5.8 % [facility] Blood 06/10/2024 10:0 6 AM EDT 06/10/2024 10:14 AM EDT us Jany Trevino PA-C LAB BLOOD ORDERABL ES Final Result Performing Organization Address [facility]/ZIP Co de Phone Number [address] [address] from Last 3 Months or Most Recently Relevant to Health Maintenance [facility] TOMY HOPSON [id number] [facility] MEDICARE REPLACEMENT [facility] MEDICARE REPLACEMENT [facility] MEDICARE [facility]PLACEMENT [facility] MEDICARE REPLACEMENT [facility] MEDICARE REPLACEMENT [facility] MEDICARE REPLACEMENT [facility] MEDICARE REPLACEMENT [facility] MEDICARE REPLACEMENT Advance Directives For more information, please contact: [phone] (9AM - 5PM [facility], Sunday-Sunday) Documents on File Type Date Recorded Patient Supervisor Coating Expl anation Healthcare Proxy 12/18/2018 HEALTH CARE PROXY * Full Code (Latest Code Status on File) Date Activated Date Inactivated Comments 07/04/2021 1:31 PM Question Answer Comments Code Status Confirmed With: Patient * Full Code (Presumed) Date Activated Date Inactivated Comments 12/20/2018 2:19 PM 12/24/2018 12:31 PM * Full Code (Presumed) Date Activated Date Inactivated Comments 12/20/2018 6:30 AM 12/20/2018 2:14 PM Healthcare Agents on File Name Relationship Healthcare Agent Relationshi p Communication Gretchen Crowley Daughter .Primary Health Care Agent (Proxy form on file) Care Teams Senior Fund Accountant Relationship Specialty Start Date End Date Ry Soriano MD [address] [place] [phone] PCP - General Internal Medicine 07/29/18 Additional Source Comments The information contained in this document represents components of the legal health record. It is not the complete legal health record.[facility]
--- OUTSIDE RECORDS SUMMARY | 2024-12-09 11:33 | XMS_ITS | Patient Health Record ---
Author Organization [facility] Address [address] [place] [address] Care Team Providers Care Tie Puller Name Role Phone Ry Soriano Primary Care Provider Clive Cardoso Unavailable [phone] Allergies Allergen (clinical drug ingredient) Drug/Non Drug Allergy documented on EMR Reaction Allergy Type Onset Date Status Adhesive per pt no allergy Allergy Active Results Component Value Reference Range Notes HEMOGLOBIN A1C (GLYCOHEMOGLO BIN) Reviewed date:06/02/2024 10:08:21 AM Interpretation: Performing Lab: Notes/Report: HEMOGLOBIN A1C % (HH) 7.0 HEMOGLOBIN A1C (GLYCOHEMOGLO BIN) Reviewed date:11/17/2024 09:18:24 AM Interpretation: Performing Lab: Notes/Report: HEMOGLOBIN A1C [...] Once a day; Duration: 30 day(s) Active Lisinopril 30 MG 1 [...] Wear Daily; Duration: 365 days 03/05/2024 Active metFORMIN HCl 500 MG 1 tablet with a lnida l Orally Once a day; Duration: 30 day(s) Active Vitamin D3 Active Ciclopirox Olamine 0.77 % 1 application Externally Twice a day to skin of feet including between the toes; Duration: 30 days Active Immunizations Vaccine Route Administration Date Status Comme nts Influenza Unknown 05/03/2022 Administered Influenza Unknown 12/03/2023 Administered Social History Tobacco Use: Social History [...] Additional Findings: Tobacco non-user Current no nsmoker AUDIT-C (Standard) Question Answer Notes Did you have a drink containing alcohol in the p ast year? No Points 0 Interpretation Negative Problems Problem Type SNOMED Code ICD Code Onset Dates Problem Status W/U Status Risk Notes Problem Acquired hammer toe of right foot (8165067725415 105) Other hammer toe(s) (acquired), right foot (M20.41) Active confirmed Problem Type 2 diabetes mellitus with peripheral angiopathy (263120411) Type 2 diabetes mellitus with diabetic peripheral angiopathy without gangrene (E11.51) Active confirmed Q7(A), Q8(2B), Q9(1B,2C) Problem Acquired hammer toe of left foot (5095686382839 103) Other hammer toe(s) (acquired), left foot (M20.42) Active confirmed Problem Plantar wart (56644268) Plantar wart (B07.0) Active confirmed Vital Signs Blood pressure diastolic 64 mm Hg 11/17/2024 Height 5ft 5in in 11/17/2024 Blood pressure systolic 131 mm Hg 11/17/2024 Weight 194 lbs 11/17/2024 BMI 32.28 kg/m2 11/17/2024 Procedures Procedure Date Ordered Date Performed Result Body Sit e 34335-IIKPSET NAIL, 6 OR MORE 03/05/2024 N/A 37523-Iysi Destruction, 1-14 03/05/2024 N/A 21963-GXZC SKIN LESIONS, OVER 4 03/05/2024 N/A 81301-NTXUXTK NAIL, 6 OR MORE 06/02/2024 N/A 90820-Cmxy Destruction, 1-14 06/02/2024 N/A 87564-ZRBC SKIN LESIONS, OVER 4 06/02/2024 N/A 68488-WIOBJUK NAIL, 6 OR MORE 11/17/2024 N/A 41277-Cela Destruction, 1-14 11/17/2024 N/A 41170-YAJF SKIN LESIONS, OVER 4 11/17/2024 N/A Encounters Encounter Location Date Provider Diagnosis [address] [address] 03/05/2024 Clive Vilchis Type 2 diabetes mellitus with diabetic peripheral angiopathy without gangrene E11.51 ; Plantar wart B07.0 ; Tinea unguium B35.1 ; Pain in right toe(s) M79.674 ; Pain in left toe(s) M79.675 ; Right foot pain M79.671 ; Other hammer toe(s) (acquired), right foot M20.41 and Other hammer toe(s) (acquired), left foot M20.[address] [address] 06/02/2024 Clive Vilchis Type 2 diabetes mellitus with diabetic peripheral angiopathy without gangrene E11.51 ; Plantar wart B07.0 ; Tinea unguium B35.1 ; Pain in right toe(s) M79.674 ; Pain in left toe(s) M79.675 ; Right foot pain M79.671 and Tinea pedis of both feet B35.[address] [address] 11/17/2024 Clive Vilchis Type 2 diabetes mellitus with diabetic peripheral angiopathy without gangrene E11.51 ; Plantar wart B07.0 ; Tinea unguium B35.1 ; Pain in right toe(s) M79.674 ; Pain in left toe(s) M79.675 ; Right foot pain M79.671 and Tinea pedis of both feet B35.[address] [facility] [address] [address] 08/21/2024 Clive Vilchis Assessments Encounter Date Diagnosis [...] Q9(1B,2C) 06/02/2024 Plantar wart (ICD-10 - B07.0) 11/17/2024 Type 2 diabetes mellitus with diabetic peripheral angiopathy without gangrene (ICD-10 - E11.51) Q7(A), Q8(2B), Q9(1B,2C) 11/17/2024 Plantar wart (ICD-10 - B07.0) 11/17/2024 Tinea unguium (ICD-10 - B35.1) 06/02/2024 Tinea unguium (ICD-10 - B35.1) 03/05/2024 Tinea unguium (ICD-10 - B35.1) 03/05/2024 Pain in right toe(s) (ICD-10 - M79.674) 06/02/2024 Pain in right toe(s) (ICD-10 - M79.674) 11/17/2024 Pain in right toe(s) (ICD-10 - M79.674) 03/05/2024 Pain in left toe(s) (ICD-10 - M79.675) 06/02/2024 Pain in left toe(s) (ICD-10 - M79.675) 11/17/2024 Pain in left toe(s) (ICD-10 - M79.675) 03/05/2024 Right foot pain (ICD-10 - M79.671) 11/17/2024 Right foot pain (ICD-10 - M79.671) 06/02/2024 Right foot pain (ICD-10 - M79.671) 11/17/2024 Tinea pedis of both feet (ICD-10 - B35.3) 03/05/2024 Other hammer toe(s) (acquired), right foot (ICD-10 - M20.41) Patient Educated with: DIABETIC FOOT CARE INSTRUCTIONS.p df (DIABETIC FOOT CARE INSTRUCTIONS.p df) 03/05/2024 Other hammer toe(s) (acquired), left foot (ICD-10 - M20.42) 06/02/2024 Tinea pedis of both feet (ICD-10 - B35.3) 06/02/2024 Other 11/17/2024 Other Plan Of Treatment Pending Test Test Name Order Date 91976-JVLSAAT NAIL, 6 OR MORE 03/05/2024 34991-KQIIFLJ NAIL, 6 OR MORE 06/02/2024 89563-LUAVMZN NAIL, 6 OR MORE 11/17/2024 39175-Csqj Destruction, 1-14 11/17/2024 17500-Bacn Destruction, 1-14 06/02/2024 40925-Vjsw Destruction, 1-14 03/05/2024 63680-AVRB SKIN LESIONS, OVER 4 03/05/20 24 47212-PSSA SKIN LESIONS, OVER 4 06/03/19 25 08133-HTZY SKIN LESIONS, OVER 4 11/18/19 25 69365-WALS SKIN LESIONS, 2 TO 4 06/15/19 24 36514-NZAY SKIN LESIONS, 2 TO 4 09/14/19 24 Next Appt Details Provider Name:Clive Vilchis , 03/02/2025 09:45:00 AM, [address], [address], [place], [address], Insurance Providers Payer Name Payer Address Payer Phone Subscriber Number Group Number Insured Name Patient Relationship to Insured Coverage Start Date Coverage End Date [facility] [employer] Claims [address] [place] [id number] [phone] [id number] Lauren Crowley Self - patient is the insured Medical (General) History Medical History History ICD Code Arthritis Back,Hip,and Knee pain Cataracts covid-19 Diabetic High blood pressure Reflux ( GERD) Chicken pox Hypercholesterolemia Surgical History Surgery Date(Month/Year) triple bypass 2020 knee replacement hysterectomy 2022
--- OUTSIDE RECORDS SUMMARY | 2024-12-09 11:33 | XMS_ITS | Encounter Summary ---
Author Organization [facility] Address [address] [facility] [address] [place] [address] Phone Care Team Providers Care Cmv Driver Name Role Phone Ry Soriano MD Primary Care Provider [phone] Encounter Details Date Type Department Care Team (Late st Contact Info) Description 07/04/2021 Procedure Pass [facility] Periop [address] [place] [address] Social History Tobacco Use Types Packs/Day Years [...] AM EST documented as of this encounter Functional Status * Calculated C-SSRS Risk Score (Lifetime/Recent) Answer Date of Assessment Author No Risk Indicated 07/06/2021 9:00 AM Bibiana Xiong, RN * Newberg Suicide Severity Rating Scale (Screener/Recent Self-Report) Question Answer Date of Assessment Author 1. Wish to be (Past 1 Month) No 022 9:00 AM Bibiana Xiong, RN 2. Non-Specific Active Suici pattie Thoughts (Past 1 Month) No 07/06/2021 9:00 AM Bibiana Xiong, RN 6. Suicidal Behavior (Lifetime) No 2 9:00 AM EDT Bibiana Crowley RN documented as of this encounter Plan of Treatment Upcoming Encounters Date Type Department Care Team (Late st Contact Info) Description 02/03/2025 9:00 AM EST Office Visit [facility] [address] [place] [address] Jany Trevino PA-C [address] [place] [address] 05/13/2025 11:40 AM EST Office Visit [facility] [address] [place] [address] Sushma Arias MD [address] [place] [address] documented as of this encounter Visit Diagnoses Not on filedocumented in this encounter Care Teams Cmv Driver Relationship Specialty Start Date End Date Ry Soriano MD [address] [place] [phone] PCP - General Internal Medicine 07/29/18 documented as of this encounter Additional Source Comments The information contained in this document represents components of the legal health record. It is not the complete legal health record.[facility]
--- OUTSIDE RECORDS SUMMARY | 2024-12-09 11:33 | XMS_ITS | Encounter Summary ---
Author Organization [facility] Address [address] [facility] [address] [place] [address] Phone Care Team Providers Care Plant Guard Name Role Phone Ry Soriano MD Primary Care Provider [phone] Encounter Details Date Type Department Care Team (Late Contact Info) Description 12/20/2018 Procedure Pass [facility] [address] [place] [address] Social History Tobacco Use Types Packs/Day Years [...] AM EST Office Visit [facility] [address] [place] [address] Jany Trevino PA-C [address] [place] [address] 05/13/2025 11:40 AM EST Office Visit [facility] [address] [place] [address] Sushma Arias MD [address] [address] [email or web address] documented as of this encounter Visit Diagnoses Not on filedocumented in this encounter Care Teams Plant Guard Relationship Specialty Start Date End Date Bo, Ry Horan MD [address] [place] [address] [place] [phone] PCP - General Internal Medicine 07/29/18 documented as of this encounter Additional Source Comments The information contained in this document represents components of the legal health record. It is not the complete legal health record.[facility]
[2024-12-09 13:49] LABS: Blood Urea Nitrogen 15 mg/dL (9-16); Estimated Glomerular Filt Rate 45
== END 2024-12-09 09:45 | disposition home or self-care (01) ==
LOC: HO.HMGCLDS 09:44
PROVIDERS: PCP Internal Medicine; Visit Provider Radiology Vascular & Interventional Radiology
DX: R94.4 Abnormal results of kidney function studies (principal); R79.89 Other specified abnormal findings of blood chemistry
CPT/HCPCS: 36415; 82565; 84520

== ENCOUNTER 2024-12-16 16:18 | Outpatient (REF) | payer OTHER, SELFPAY ==
--- OUTSIDE RECORDS SUMMARY | 2024-08-21 06:45 | XMS_ITS ---
Author Organization [facility] Address [address] [place] [address] Care Team Providers Care Lpn Or Medical Assistant Name Role Phone Ry Soriano Primary Care Provider Unavailabl Clive Green Unavailable [phone] Encounters Encounter Location Date [facility] [address] [address] 08/21/2024 Clive Vilchis Plan Of Treatment Next Appt Details Provider Name:Clive Vilchis , 03/02/2025 09:45:00 AM, [address] [place] [address], [address], Progress Notes * KEO Lauren BDOB:1945 ( 79 yo F)Acc No.[id number]:08/21/2024 Progress Note Patient: Lauren CHRISTIANSON Provider: Gus Vilchis DPM :1945 A ge:79 Y S ex:Female Date:08/21/2024 Address:[address] [place] [address] [address] [facility] Pcp:Ry Soriano Subjective: * Chief Complaints: * [...] 08/21/2024 Generated for Ollie lea/Neida/Cammy on: 0 12/17/2024 12:43 PM EDT
--- OUTSIDE RECORDS SUMMARY | 2024-12-17 12:44 | XMS_ITS | Patient Health Record ---
Author Organization [facility] Address [address] [facility] [place] [address] Care Team Providers Care Fingerprint Clerk Name Role Phone Ry Soriano Primary Care Provider Clive Cardoso Unavailable [phone] Allergies Allergen (clinical drug ingredient) Drug/Non Drug [...] Problem Acquired hammer toe of right foot (1009645115429 105) Other hammer toe(s) (acquired), right foot (M20.41) Active confirmed Problem Type 2 diabetes mellitus with peripheral angiopathy (858252984) Type 2 diabetes mellitus with diabetic peripheral angiopathy without gangrene (E11.51) Active confirmed Q7(A), Q8(2B), Q9(1B,2C) Problem Acquired hammer toe of left foot (0836586202459 103) Other hammer toe(s) (acquired), left foot (M20.42) Active confirmed Problem Plantar wart (75516067) Plantar wart (B07.0) Active confirmed Vital Signs Blood pressure diastolic 64 mm Hg 11/17/2024 Height 5ft 5in in 11/17/2024 Blood pressure systolic 131 mm Hg 11/17/2024 Weight 194 lbs 11/17/2024 BMI 32.28 kg/m2 11/17/2024 Procedures Procedure Date Ordered Date Performed Result Body Sit e 62428-GOMPPKD NAIL, 6 OR MORE 03/05/2024 N/A 97002-Aadx Destruction, 1-14 03/05/2024 N/A 67187-MPHQ SKIN LESIONS, OVER 4 03/05/2024 N/A 33227-JELCALD NAIL, 6 OR MORE 06/02/2024 N/A 75834-Pvcy Destruction, 1-14 06/02/2024 N/A 59595-DMVU SKIN LESIONS, OVER 4 06/02/2024 N/A 12047-RUDDSOL NAIL, 6 OR MORE 11/17/2024 N/A 55516-Ytgg Destruction, 1-14 11/17/2024 N/A 29718-VSGI SKIN LESIONS, OVER 4 11/17/2024 N/A Encounters Encounter Location Date Provider Diagnosis [address] [address] 03/05/2024 Clive Vilchis Type 2 diabetes mellitus with diabetic peripheral angiopathy without gangrene E11.51 ; Plantar wart B07.0 ; Tinea unguium B35.1 ; Pain in right toe(s) M79.674 ; Pain in left toe(s) M79.675 ; Right foot pain M79.671 ; Other hammer toe(s) (acquired), right foot M20.41 and Other hammer toe(s) (acquired), left foot M20.[address] [address] 06/02/2024 Clive Vilchis Type 2 diabetes mellitus with diabetic peripheral angiopathy without gangrene E11.51 ; Plantar wart B07.0 ; Tinea unguium B35.1 ; Pain in right toe(s) M79.674 ; Pain in left toe(s) M79.675 ; Right foot pain M79.671 and Tinea pedis of both feet B35.[address] [address] 11/17/2024 Clive Vilchis Type 2 diabetes mellitus with diabetic peripheral angiopathy without gangrene E11.51 ; Plantar wart B07.0 ; Tinea unguium B35.1 ; Pain in right toe(s) M79.674 ; Pain in left toe(s) M79.675 ; Right foot pain M79.671 and Tinea pedis of both feet B35.3 [facility] [address] [address] 08/21/2024 Clive Vilchis Assessments Encounter Date Diagnosis [...] toe(s) (ICD-10 - M79.674) 11/17/2024 Pain in left toe(s) (ICD-10 - M79.675) 06/02/2024 Pain in left toe(s) (ICD-10 - M79.675) 03/05/2024 Pain in left toe(s) (ICD-10 - M79.675) 06/02/2024 Right foot pain (ICD-10 - M79.671) 03/05/2024 Right foot pain (ICD-10 - M79.671) 11/17/2024 Right foot pain (ICD-10 - M79.671) 11/17/2024 [...] Treatment Pending Test Test Name Order Date 26965-UNFIBOJ NAIL, 6 OR MORE 03/05/2024 30640-BZMHQPE NAIL, 6 OR MORE 06/02/2024 28912-CYIVQBO NAIL, 6 OR MORE 11/17/2024 22195-Uetk Destruction, 1-14 11/17/2024 49684-Llks Destruction, 1-14 06/02/2024 58401-Tqya Destruction, 1-14 03/05/2024 55268-PBWJ SKIN LESIONS, OVER 4 03/05/20 24 98181-EQOL SKIN LESIONS, OVER 4 06/03/19 25 42104-TUSP SKIN LESIONS, OVER 4 11/18/19 25 43258-DSDP SKIN LESIONS, 2 TO 4 06/15/19 24 93340-PXRG SKIN LESIONS, 2 TO 4 09/14/19 24 Next Appt Details Provider Name:Clive Vilchis , 03/02/2025 09:45:00 AM, [address] [facility], [address], [place], [address], Insurance Providers Payer Name Payer Address Payer Phone Subscriber Number Group Number Insured Name Patient Relationship to Insured Coverage Start Date Coverage End Date [facility] [employer] Claims [address] [place] [address] [phone] [id number] Lauren Crowley Self - patient is the insured Medical (General) History Medical History History ICD Code Arthritis Back,Hip,and Knee pain Cataracts covid-19 Diabetic High blood pressure Reflux ( GERD) Chicken pox Hypercholesterolemia Surgical History Surgery Date(Month/Year) triple bypass 2020 knee replacement hysterectomy 2022
--- OUTSIDE RECORDS SUMMARY | 2024-12-17 12:44 | XMS_ITS | Encounter Summary ---
Author Organization [facility] Address [address] [facility] [address] [place] [address] Phone Care Team Providers Care Textile Converter Name Role Phone Ry Soriano MD Primary Care Provider [phone] Encounter Details Date Type Department Care Team (Late st Contact Info) Description 07/04/2021 Procedure Pass [facility] Periop [address] [place] [address] Social History Tobacco Use Types Packs/Day Years [...] 07/06/2021 9:00 AM Bibiana Xiong, RN * Prentiss Suicide Severity Rating Scale (Screener/Recent Self-Report) Question [...] AM EST Office Visit [facility] [address] [place] [address] Jany Trevino PA-C [address] [place] [address] 05/13/2025 11:40 AM EST Office Visit [facility] [address] [place] [address] Sushma Arias MD [address] [place] [address] documented as of this encounter Visit Diagnoses Not on filedocumented in this encounter Care Teams Textile Converter Relationship Specialty Start Date End Date Ry Soriano MD [address] [place] [address] PCP - General Internal Medicine 07/29/18 documented as of this encounter Additional Source Comments The information contained in this document represents components of the legal health record. It is not the complete legal health record.[facility]
--- OUTSIDE RECORDS SUMMARY | 2024-12-17 12:44 | XMS_ITS | Encounter Summary ---
Author Organization [facility] Address [address] [facility] [address] [place] [address] Phone Care Team Providers Care Pin Puller Name Role Phone Ry Soriano MD Primary Care Provider [phone] Encounter Details Date Type Department Care Team (Late Contact Info) Description 12/20/2018 Procedure Pass [facility] Periop [address] [place] [address] Social History Tobacco Use Types Packs/Day Years [...] AM EST Office Visit [facility] [address] [place] [address] Jany Trevino PA-C [address] [place] [address] 05/13/2025 11:40 AM EST Office Visit [facility] [address] [place] [address] Sushma Arias MD [address] [place] [address] [email or web address] documented as of this encounter Visit Diagnoses Not on filedocumented in this encounter Care Teams Pin Puller Relationship Specialty Start Date End Date Ry Soriano MD [address] [place] [address] [address] [place] [phone] PCP - General Internal Medicine 07/29/18 documented as of this encounter Additional Source Comments The information contained in this document represents components of the legal health record. It is not the complete legal health record.[facility]
--- OUTSIDE RECORDS SUMMARY | 2024-12-17 12:44 | XMS_ITS | Encounter Summary ---
Author Organization [facility] Address [address] [place] [address] Phone Care Team Providers Care Supervisor Food Checkers And Cashiers Name Role Phone Ry Soriano MD Primary Care Provider [phone] Reason for Referral * - Closed Specialty Diagnoses / Procedures Referred By Contholly t Referred To Contact Procedures NM Bone Outside (No Interpretation) Biun Oliver MD Phone: tel: fax: [email or web address] Referral ID Status Reason Start Date Expiration Date Visits Re quested Visits Authorized [id number] Closed 08/16/2018 08/16/2019 1 1 Encounter Details Date Type Department Care Team (Late st Contact Info) Description 08/16/2018 Transcribe Orders [facility] [address] [place] [address] Pierre Contreras [address] [place] [address] [email or web address] History Tobacco Use Types Packs/Day [...] AM EST Office Visit [facility] [address] [place] [address] Jany Trevino PA-C [address] [place] [address] 05/13/2025 11:40 AM EST Office Visit [facility] [address] [place] [address] Sushma Arias MD [address] [place] [address] documented as of this encounter Results * US Vascular Outside (No Interpretation) (08/16/2018 10:32 AM EDT) Narrative SYSTEMGENERATED, DOCUMENTATION - 08/16/2018 10:32 AM EDT This study is for PACS storage only and not for interpretation. us Binu Oliver MD CV US VASCULAR Final Result * XR Lower Extremity Outside (No Interpretation) (08/16/2018 10:32 AM EDT) Narrative [facility] - 08/16/2018 10:32 AM EDT This [...] INTE RPRETATION Final Result Performing Organization Address City/[facility]/ZIP Co de Phone Number [facility] * NM Bone Outside (No Interpretation) (08/16/2018 10:32 AM EDT) Narrative [facility] - 08/16/2018 10:32 AM EDT This study is for PACS storage only and not for interpretation. us Binu Oliver MD IMG OUTSIDE IMAGING W/OUT INTE RPRETATION Final Result Performing Organization Address [facility] Co de Phone Number [facility] documented in this encounter Visit Diagnoses Not on filedocumented in this encounter Care Teams Supervisor Food Checkers And Cashiers Relationship Specialty Start Date End Date Ry Soriano MD [address] [place] [address] PCP - General Internal Medicine 07/29/18 documented as of this encounter Additional Source Comments The information contained in this document represents components of the legal health record. It is not the complete legal health record.[facility]
--- OUTSIDE RECORDS SUMMARY | 2024-12-17 12:44 | XMS_ITS | Encounter Summary ---
Author Organization [facility] Address [address] [facility] [address] [place] [address] Phone Care Team Providers Care Feather Curling Machine Operator Name Role Phone Ry Soriano MD Primary Care Provider [phone] Encounter Details Date Type Department Care Team [...] AM EST Office Visit [facility] [address] [place] [address] Jany Trevino PA-C 22 [place] [address] 05/13/2025 11:40 AM EST Office Visit [facility] [address] [place] [address] Sushma Arias MD [address] [place] [address] [email or web address] documented as of this encounter Visit Diagnoses Not on filedocumented in this encounter Care Teams Feather Curling Machine Operator Relationship Specialty Start Date End Date Ry Soriano MD [address] [place] [address] [address] [place] [address] PCP - General Internal Medicine 07/29/18 documented as of this encounter Additional Source Comments The information contained in this document represents components of the legal health record. It is not the complete legal health record.[facility]
--- OUTSIDE RECORDS SUMMARY | 2024-12-17 12:44 | XMS_ITS | Clinical Summary ---
Author Organization [facility] Address [address] [facility] [address] [place] [address] Phone Care Team Providers Care County Sheriff Name Role Phone Ry Soriano MD Primary Care Provider [phone] Allergies No known active allergies Medications atorvastatin [...] (03/14/2024 10:30 AM EST): Good control by DexPicosun G7 download with average glucose 148, GMI [...] Rx on extra-depth orthopedic shoes by new corrugator Dr. Vilchis recently. -Labs today -Adjust Lantus [...] her methimazole. Had blood work done at [facility] will get results to determine if medication [...] today - Routine follow-up scheduled with her corrugator next week - Follow-up with Roxanna on [...] her glucose levels. Up to date with [facility], scheduled to see at the end [...] her glucose levels. Up to date with [facility]. Scheduled to see podiatry. Labs were done at [facility] will call for results Assessment & Plan [...] her glucose levels. Up to date with [facility]. Labs ordered today Assessment & Plan (02/16/2023 10:04 AM EST): Control is reasonable based upon the patient's SMBG readings. No frequent hypoglycemia. She recently has had a couple episodes of severe hypoglycemia based upon the definition of less than 54. She is not sure what caused the lows, she corrected with orange juice and was fine. She hasn't received her dexcom supplies from [facility] yet. The office called today to see [...] her glucose levels. Up to date with [facility]. Labs ordered today Assessment & Plan (11/13/2022 [...] her glucose levels. Up to date with [facility]. Labs ordered today Assessment & Plan (08/07/2022 4:45 PM EDT): Reasonable control by SMBG. Last A1c is not available. Waiting for old records from [facility]. Taking 27 units of Lantus at bedtime and NovoLog by sliding scale between 8 to 36 units 3 times a day before meals. She is also on 1000 mg metformin twice a day. Patient was using the kisha 2 CGM, her prescription was canceled by [facility] because of not getting supporting medical records. [...] Team Description 12/09/2024 Orders Only [facility] [address] [place] [address] [place] [address] Sushma Arias MD Type 2 diabetes mellitus with proteinuria (Primary Dx); Toxic thyroid nodule; Hyperparathyroidism 11/05/2024 12:26 PM EDT - 11/05/2024 11:59 PM EDT Hospital Encounter [facility] [address] [place] [address] [place] [address] Sushma Arias MD Discharge Disposition: Home or Self Care 11/05/2024 11:20 AM EDT Office Visit [facility] [address] [place] [address] [place] [address] Sushma Arias MD Type 2 diabetes mellitus with diabetic peripheral angiopathy without gangrene, with long-term current use of insulin (Primary Dx); Toxic thyroid nodule; Type 2 diabetes mellitus with proteinuria; Vitamin B12 deficiency; Hypercalcemia 10/25/2024 Refill [facility] [address] [place] [address] [place] [address] Sushma Arias MD Medication Refill from Last [...] AM EST Office Visit [facility] [address] [place] [address] Jany Trevino PA-C 22 [place] [address] 05/13/2025 11:40 AM EST Office Visit [facility] [address] [place] [address] Sushma Arias MD [address] [place] [address] [address] [place] [address] [email or web address] Health Maintenance Due Date Last Done Comments [...] this topic Medical Devices Implanted Type Area Dye Mixer Device Identifier Shelf Expiration Date Model / Serial / Lot Knee Wedge Size 3 Plate Bone Tibial Stemmed Nexgen Precoat 03c Cs/1bx/1ea - [id number] Implanted:Qty: 1 on 12/20/2018 by Binu Oliver MD at [facility] NODATA Left: Knee MANJEET / DIV OF SeeWhy 06/30/2028 [id number] / / Knee Stem 145mm 100 Od 14 Makeup Sales Advisor Tivanium Tibial Solid Screw Primary Straight Impl Nexgen - [id number] Implanted:Qty: 1 on 12/20/2018 by Binu Oliver MD at [facility] STANDARD Left: Knee MANJEET / DIV OF SeeWhy 05/30/2028 [id number] / / [id number] Knee Implant 3 4 12mm Size Cd 3to4 Femoral Articular Surface Nexgen Lps Flex Fixed 05 - [id number] Implanted:Qty: 1 on 12/20/2018 by Binu Oliver MD at [facility] STANDARD Left: Knee MANJEET / DIV OF SeeWhy 07/30/2026 [id number] / / [id number] Block Augment 10mm 5448 03 27 Sz Tibial Nexgen Trabecular Metal Rt Lateral Lt Medial - [id number] Implanted:Qty: 1 on 12/20/2018 by Binu Oliver MD at [facility] STANDARD Left: Knee MANJEET / DIV OF SeeWhy 07/01/2023 [id number] / / [id number] Block Augment 10.0mm Size 3 Tibial Nexgen Trabecular Metal Lt Lateral Rt Medial - [id number] Implanted:Qty: 1 on 12/20/2018 by Binu Oliver MD at [facility] STANDARD Left: Knee MANJEET / DIV OF SeeWhy 07/31/2023 [id number] / / [id number] Knee Implant 38x8.5mm Patella Nexgen All Poly Standard 06 - [id number] Implanted:Qty: 1 on 12/20/2018 by Binu Oliver MD at [facility] STANDARD Left: Knee MANJEET / DIV OF [employer]Why 05/30/2026 [id number] / / [id number] Block Augment 5mm Knee Femoral Nexgen Trabecular Metal Distal Size D 19 - [id number] Implanted:Qty: 1 on 12/20/2018 by Binu Oliver MD at [facility] STANDARD Left: Knee MANJEET / DIV OF [place] [employer] 03/01/2022 [id number] / / [id number] Block Augment 5mm Knee Femoral Nexgen Trabecular Metal Distal Size D 19 - [id number] Implanted:Qty: 1 on 12/20/2018 by Binu Oliver MD at [facility] STANDARD Left: Knee MANJEET / DIV OF [facility] 07/01/2023 [id number] / / [id number] Knee Implant Component Femoral Nexgen Complete Legacy Zimaloy Constrained Condylar Lt Size D Cs/1bx/1ea - [id number] Implanted:Qty: 1 on 12/20/2018 by Binu Oliver MD at [facility] STANDARD Left: Knee MANJEET / DIV OF SeeWhy 05/02/2028 [id number] / / [id number] Knee Stem 200mm 155 Od 13 Makeup Sales Advisor Tivanium Tibial Solid Screw Primary Straight Impl Nexgen - [id number] Implanted:Qty: 1 on 12/20/2018 by Binu Oliver MD at [facility] STANDARD Left: Knee MANJEET / DIV OF [place] [employer] 11/30/2022 [id number] / / [id number] Knee Implant 12mm Size 3 Component Articular Surface Nexgen Uhmwpe Lcck Cd Bx/1ea - [id number] Implanted:Qty: 1 on 07/04/2021 by Binu Oliver MD at [facility] STANDARD Left: Knee MANJEET / DIV OF [employer]Why [id number] 05/31/2027 [id number] / / [id number] Left Tkr Cement Bone 40gr [place]os R And G Gentamicin Radiopaque Deangelo/1ea - [id number] Implanted:Qty: 2 on 12/20/2018 by Binu Oliver MD at [facility] Left: Knee MANJEET / DIV OF [employer] 05/30/2021 [id number] / / [id number] Procedures Procedure Name Priority Date/Time Associated Diagnosis [...] component not applicable or not reported. g/dL [facility] [address] Zamarripaprotein GL Test component not applicable or not reported. g/dL [facility]PATH [address] DR Zamarripaprotein AK Test component not applicable or not reported. g/dL [facility] [address] DR M-protein AL Test component not applicable or not reported. g/dL [facility] M-protein MK Test component not applicable or not reported. g/dL [facility] M-protein ML Test component not applicable or not reported. g/dL [facility] DR Glycosylation Test component not applicable or not reported. [facility] Flag, M-protein Isotype Negative Negative [facility] QMPTS Interpretation No monoclonal protein detected. [facility] Comment: (NOTE) ADDITIONAL INFORMATION The submitted sample was assayed by five separate immunopurifications for IgG, IgA, IgM, kappa and lambda. The result reflects the findings of either no monoclonal protein detected or those monoclonal immunoglobulins that were detected. This test was developed and its performance characteristics determined by [facility] in a manner consistent with CLIA requirements. This test has not been cleared or approved by the U.S. Food and Drug Administration. IgA 473(H) 61 - 356 mg/dL [facility] DR IgM 102 37 - 286 mg/dL [facility] IgG 1,170 767 - 1,590 mg/dL [facility] Therapeutic Antibody Administered? No [facility] Comment:Corrected on 11/10 A T 1205: previously reported as NO Blood 11/05/2024 12:3 6 PM EDT 11/05/2024 12:46 PM EDT us Sushma Arias MD LAB BLOOD ORDERABLES Edited Re sult - Final [facility] [address] [place] [address] * Methylmalonic acid, serum (11/05/2024 12:36 PM EDT) METHYLMALONIC ACID 0.15 <=0.40 nmol/mL [facility] D[facility] OF LAB MED AND PAT+ Comment: (NOTE) ADDITIONAL INFORMATION This test was developed and its performance characteristics determined by [facility] in a manner consistent with CLIA requirements. This test has not been cleared or approved by the U.S. Food and Drug Administration. Blood 11/05/2024 12:3 6 PM EDT 11/05/2024 12:46 PM EDT Sushma Arias MD LAB BLOOD ORDERABLES Final Res ult [facility] D[facility] OF LAB MED AND PAT+ [address] [place] [address] * (ABNORMAL) Parathyroid hormone (PTH) (11/05/2024 12:36 PM EDT) PARATHYROID HORMONE 100(H) 15 - 65 pg/mL [facility] Blood 11/05/2024 12:3 6 PM EDT 11/05/2024 12:47 PM EDT Sushma Arias MD LAB BLOOD ORDERABLES Final Res ult [facility] [address] [place] [address] * (ABNORMAL) Comprehensive metabolic panel (11/05/2024 12:29 PM EDT) SODIUM 139 133 - 146 mmol/L [facility] POTASSIUM 3.5 3.3 - 5.1 mmol/L [facility] CHLORIDE 104 96 - 108 mmol/L [facility] CO2 21 21 - 35 mmol/L [facility] BUN 12 6 - 19 mg/dL [facility] CREATININE 1.10 0.5 - 1.5 mg/dL [facility] GLUCOSE 88 70 - 99 mg/dL [facility] ALBUMIN 4.0 3.9 - 4.8 g/dL [facility] TOTAL PROTEIN 7.6 6.5 - 8.0 g/dL [facility] CALCIUM 10.0 8.4 - 10.3 mg/dL [facility] ALKALINE PHOSPHATASE 114 39 - 117 U/L [facility] TOTAL BILIRUBIN 0.3 0.0 - 1.2 mg/dL [facility] AST 22 0 - 37 U/L [facility] ALT 8 0 - 40 U/L [facility] GLOBULIN 3.6 1 - 4.8 g/dL [facility] EGFR 51(L) >59 mL/min/1.7 3m2 [facility] Comment:Estimated glomerular filtration rate calculated using the CKD-EPI refit equation. ANION GAP 18 10 - 20 mmol/L [facility] Blood 11/05/2024 12:2 9 PM EDT 11/05/2024 12:45 PM EDT us Sushma Arias MD LAB BLOOD ORDERABLES Final Res ult Performing Organization Address City/[facility]/ZIP Co de Phone Number [address] [address] * 25-OH vitamin D (11/05/2024 12:29 PM EDT) 25 OH VIT D (TOTAL) 43 30 - 60 ng/mL [facility] Blood 11/05/2024 12:2 9 PM EDT 11/05/2024 12:45 PM EDT us Sushma Arias MD LAB BLOOD ORDERABLES Final Res ult [address] [address] * (ABNORMAL) CBC and differential (11/05/2024 12:29 PM EDT) WBC 10.33 4.00 - 11.00 K/uL [facility] RBC 3.60(L) 4.00 - 5.20 M/uL [facility] HGB 9.1(L) 12.0 - 16.0 g/dL [facility] HCT 31.6(L) 36.0 - 46.0 % [facility] PLT 359 150 - 450 K/uL [facility] MCV 87.8 80.0 - 100.0 fL [facility] MCH 25.3(L) 27.0 - 31.0 pg [facility] MCHC 28.8(L) 32.0 - 36.0 g/dL [facility] RDW 17.2(H) 11.5 - 14.5 % [facility] MPV 11.8 8.4 - 12.0 fL [facility] NRBC 0.00 0.00 /100 WBCs [facility] ABSOLUTE NRBC 0.00 0.00 K/uL [facility] DIFF METHOD Auto [facility] NEUTS 65.6 48.0 - 76.0 % [facility] LYMPHS 26.4 18.0 - 41.0 % [facility] MONOS 4.6 4.0 - 11.0 % [facility] EOS 2.6 0.0 - 5.0 % [facility] BASOS 0.4 0.0 - 1.5 % [facility] Granulocytes, immature (%) 0.4 0.0 - 0.9 % [facility] ABSOLUTE NEUTS 6.77 1.92 - 7.60 K/uL [facility] ABSOLUTE LYMPHS 2.73 0.72 - 4.10 K/uL [facility] ABSOLUTE MONOS 0.48 0.16 - 1.10 K/uL [facility] ABSOLUTE EOS 0.27 0.00 - 0.50 K/uL [facility] ABSOLUTE BASOS 0.04 0.00 - 0.15 K/uL [facility] Granulocytes, immature 0.04 0.00 - 0.09 K/uL [facility] Blood 11/05/2024 12:2 9 PM EDT 11/05/2024 12:45 PM EDT us Sushma Arias MD LAB BLOOD ORDERABLES Final Res ult [facility] [address] [place] [address] * Free T3 (11/05/2024 12:29 PM EDT) FREE T3 2.7 2.0 - 4.4 pg/mL [facility] Blood 11/05/2024 12:2 9 PM EDT 11/05/2024 12:45 PM EDT Sushma Arias MD LAB BLOOD ORDERABLES Final Res ult Performing Organization Address City/[facility]/ZIP Co de Phone Number [address] [address] * TSH (11/05/2024 12:29 PM EDT) TSH 1.07 0.27 - 4.20 uIU/mL [facility] Blood 11/05/2024 12:2 9 PM EDT 11/05/2024 12:45 PM EDT Sushma Arias MD LAB BLOOD ORDERABLES Final Res ult Performing Organization Address [facility] Co de Phone Number [address] [address] * (ABNORMAL) Free T4 (11/05/2024 12:29 PM EDT) FREE T4 0.8(L) 0.9 - 1.7 ng/dL [facility] Blood 11/05/2024 12:2 9 PM EDT 11/05/2024 12:45 PM EDT Sushma Arias MD LAB BLOOD ORDERABLES Final Res ult Performing Organization Address City/[facility]/ZIP Co de Phone Number [address] [address] * Phosphorus (11/05/2024 12:29 PM EDT) PHOSPHORUS 3.5 2.7 - 4.5 mg/dL [facility] Blood 11/05/2024 12:2 9 PM EDT 11/05/2024 12:45 PM EDT us Sushma Arias MD LAB BLOOD ORDERABLES Final Res ult [address] [address] * Vitamin B12 (11/05/2024 12:29 PM EDT) VITAMIN B12 1,131 232 - 1,245 pg/mL [facility] Blood 11/05/2024 12:2 9 PM EDT 11/05/2024 12:45 PM EDT us Sushma Arias MD LAB BLOOD ORDERABLES Final Res ult Performing Organization Address [facility]/ZIP Co de Phone Number [address] [address] * (ABNORMAL) Hemoglobin A1c (06/10/2024 10:06 AM EDT) HEMOGLOBIN A1C 7.2(H) 4.3 - 5.8 % [facility] Blood 06/10/2024 10:0 6 AM EDT 06/10/2024 10:14 AM EDT Jany Trevino PA-C LAB BLOOD ORDERABL ES Final Result Performing Organization Address [facility]/ZIP Co de Phone Number [address] [address] from Last 3 Months or Most Recently Relevant to Health Maintenance Insurance [facility] MED[facility]ARE REPLACEMENT [facility] MEDICARE REPLACEMENT [facility] MEDICARE REPLACEMENT [facility] MEDICARE REPLACEMENT [facility] MEDICARE REPLACEMENT [facility] MEDICARE REPLACEMENT [address] [facility] [place] [place] [facility] MEDICARE REPLACEMENT [facility] MEDICARE REPLACEMENT [facility] MEDICARE REPLACEMENT Advance Directives For more information, please contact: [phone] (9AM - 5PM [facility], Sunday-Sunday) Documents on File Type Date Recorded Patient Belt Splicer Expl anation Healthcare Proxy 12/18/2018 HEALTH CARE [...] Agents on File Name Relationship Healthcare Agent [facility] Communication Gretchen [place]ley Daughter .Primary Health Care Agent (Proxy form on file) Care Teams County Sheriff Relationship Specialty Start Date End Date Ry Soriano MD [address] [place] [address] PCP - General Internal Medicine 07/29/18 Additional Source Comments The information contained in this document represents components of the legal health record. It is not the complete legal health record.[facility]
--- OUTSIDE RECORDS SUMMARY | 2024-12-17 12:44 | XMS_ITS | Encounter Summary ---
Author Organization [facility] Address [address] [facility] [address] [place] [address] Phone Care Team Providers Care Electrical Power Engineer Name Role Phone Ry Soriano MD Primary Care Provider [phone] Encounter Details Date Type Department Care Team (Late Contact Info) Description 12/20/2018 Procedure Pass [facility] [address] [place] [address] Social History Tobacco Use Types Packs/Day Years [...] AM EST Office Visit [facility] [address] [place] [address] Jany Trevino PA-C [address] [place] [address] 05/13/2025 11:40 AM EST Office Visit [facility] [address] [place] [address] Sushma Arias MD [address] [address] [email or web address] documented as of this encounter Visit Diagnoses Not on filedocumented in this encounter Care Teams Electrical Power Engineer Relationship Specialty Start Date End Date Bo, Ry Horna MD [address] [place] [address] [place] [phone] PCP - General Internal Medicine 07/29/18 documented as of this encounter Additional Source Comments The information contained in this document represents components of the legal health record. It is not the complete legal health record.[facility]
[2024-12-17 14:07] LABS: Chlamydia pneumoniae PCR Not Detected (Not Detect.); Coronavirus 229E PCR Not Detected (Not Detect.); Coronavirus HKU1 PCR Not Detected (Not Detect.); Coronavirus NL63 PCR Not Detected (Not Detect.); Coronavirus OC43 PCR Not Detected (Not Detect.); RSV PCR Not Detected (Not Detect.); Rhino/Enterovirus PCR Detected (Not Detect.)
[2024-12-17 14:09] LABS: SARS-CoV-2 PCR Not Detected (Not Detect.)
[2024-12-17 14:10] LABS: Influenza A H1 PCR Not Detected (Not Detect.); Influenza A H1-2009 PCR Not Detected (Not Detect.); Influenza A H3 PCR Not Detected (Not Detect.)
== END 2024-12-16 16:19 | disposition home or self-care (01) ==
LOC: HO.LNP 16:18
PROVIDERS: Visit Provider Physician Assistant Medical
DX: J06.9 Acute upper respiratory infection, unspecified (principal)
CPT/HCPCS: 87633

== ENCOUNTER 2024-12-16 16:18 | Outpatient (AMB) | payer OTHER, SELFPAY ==
--- OUTSIDE RECORDS SUMMARY | 2024-08-21 06:45 | XMS_ITS ---
Author Organization [facility] Address [address] [place] [address] Care Team Providers Care Research Biostatistician Name Role Phone Ry Soraino Primary Care Provider Unavailabl Clive Green Unavailable [phone] Encounters Encounter Location Date Provider [facility] [address] [address] 08/21/2024 Clive Vilchis Plan Of Treatment Next Appt Details Provider Name:Clive Vilchis , 03/02/2025 09:45:00 AM, [address] [place] [address], [address], Progress Notes * KEO Lauren BDOB:1945 ( 79 yo F)Acc No.[id number]:08/21/2024 Progress Note Patient: Lauren CHRISTIANSON Provider: Gus Vilchis DPM :1945 A ge:79 Y S ex:Female Date:08/21/2024 Address:[address] [place] [address] [address] [facility] Pcp:Ry Soriano Subjective: * Chief Complaints: * * Medical History: Objective: * Vitals: Assessment: Plan: * Treatment: * Images: * The named appointment provid er may or may not be the originator of this progress note, and it is not deemed complete until electronically signed by the appointment provider. Sign off status: Pending * Provider: uGs Vilchis DPM Date: 0 08/21/2024 Generated for Ollie lea/Sybil on: 0 12/16/2024 07:06 PM EDT
[2024-12-16 16:23] VITALS: BP 110/54; PULSE 93; TEMP 37.4; O2SAT 94; BMI 32.6
--- NOTE | 2024-12-16 16:23 | AM.OFFWIN_ITS ---
Intake Vital Signs 12/16/24 16:23 Height 5 ft 4 in Weight 190 lb BMI 32.6 BP 110/54 L Blood Pressure Location Rt brachial Position Sitting Pulse 93 Pulse Source Pulse Oximeter Temp 99.4 F Temp Source Oral Pulse Oximetry (%) 94 Oxygen Delivery Method Room Air Intake Visit Reasons: ep cold oxygen low Intake Note: pt presents with 89% oxygen saturation, feeling cold Patient Tobacco Use Status: Former Tobacco user Allergies No Known Allergies (No Known Allergies*) Allergy (Verified 12/16/24 16:25) Do you need a note to return to daycare/school/sports/work: No HPI HPI Comments History of Present Illness Details History - The patient is a 79-year-old female pr esenting with a cold and decreased oxygen saturation. - The cold began a few days ago, leading to a decrease in oxygen saturation levels, fluctuating between 90 to 92%, and dropping to 89% recently. - The patient has a history of hypertens ion and coronary artery bypass grafting. - She has undergone knee surgeries and w as sent home with oxygen post-surgery due to decreased oxygen levels, although she has no formal diagnosis of a chronic respiratory condition. - The patient experiences a cough, which is productive with green sputum, and worsens at night, leading to shortness of breath during coughing episodes. - She has no history of asthma or COPD, and she was a past smoker with rare occasional smoking at family gatherings. - She has congestion and has some post n sandra drip. - She denies sick contacts or recent tra grazyna. - She denies fever, chills, CP, SOB, abd pain, n/v/d. Physical Exam General: Cooperative, healthy appearing, comfortable and no acute distress Orientation/consciousness: Patient oriented x3 Limitations: No limitations Head: Normal to inspection Ears: Hearing grossly normal bilaterally, external ears normal and TM's normal bilaterally Nose: Normal external nose present, normal nares present, and no nasal discharge present. Face and sinus: Sinuses nontender to palpation. Mouth: Normal oral and palatal mucosa present and moist mucous membranes noted. Throat: Tonsils normal. Uvula is midline. Posterior oropharynx with erythema and no exudates. Eyes: Appearance normal, both eyes and all related structures Neck: Normal visual inspection, full ROM. No lymphadenopathy noted. Respiratory: Clear to auscultation bilaterally. Normal respiratory effort, able to speak in complete sentences. No respiratory distress, not tachypneic, no tripod positioning and no use of accessory muscles. Cardiovascular: Regular rate and rhythm. Normal S1 and S2 Skin: No rashes or lesions noted Patient was informed and verbally consented to the use of an ambient scribe for clinic note documentation during this visit [facility] Medical History Pulmonary edema COVID-19 virus infection Obesity (BMI 30-39.9) Diabetic nephropathy Essential hypertension Lab test positive for detection of COVID-19 virus Toxic multinodular goiter Tubular adenoma of colon Coronary artery disease Hypercholesterolemia Type 2 diabetes mellitus with hyperglycemia Surgical History Hx of colonoscopy Status post coronary artery bypass graft History of coronary artery bypass graft x 3 (~09/17/19) History of cardiac catheterization (~09/16/19) History of total left knee replacement H/O umbilical hernia repair S/P lumpectomy, left breast Family History Father No problems noted. Mother No problems noted. Social History Housing: Apartment Alcohol intake: current Alcohol intake frequency: holidays/special occasions only Comment: beer new year Patient Tobacco Use Status: Former Tobacco user Tobacco use type: Cigarette Years Smoked: 1999 quit e-Cigarette/Vaping Use: Never Used Second Hand Smoke Exposure: No Advance Directives Date on File: 01/08/20 service: No Current occupational status: retired Cognitive needs: Yes (cane ) Hearing needs: No Vision needs: Yes (glasses) Review of Systems Const All systems reviewed & are unremarkable except as noted in HPI and below Physical Exam Vital Signs: Last Vital Signs Temp 99.4 F 12/16/24 16:23 Pulse 93 12/16/24 16:23 BP 110/54 L 12/16/24 16:23 Pulse Ox 94 12/16/24 16:23 Oxygen Delivery Method Room Air 12/16/24 16:23 BMI result Body Mass Index 32.6 Assessment & Plan Assessment & Plan (1) URI with cough and congestion: Code(s): J06.9 - Acute upper respiratory infection, unspecified Plan Most likely covid vs flu vs RSV vs viral illness vs CAP plan - Order respiratory panel including COVID-19 and influenza tests. - Prescribe prednisone, an inhaler, and cough medicine. - Monitor oxygen levels closely and consider antibiotics if symptoms persist and tests are negative - will order CXR and can get it done if she continues to have low sat or go to the ER - will call her with the results - follow up with PCP Orders: Orders Resp Pathogen Panel - [facility] Today J06.9 - Acute upper respiratory infection, unspecified XR chest 2V Today R05.9 - Cough, unspecified Medications: New albuterol sulfate 90 mcg/actuation 2 puffs inhalation Q6H PRN 8.5 grams 0RF shortness of breath or wheezing or cough prednisone 40 mg (2 x 20 mg) PO DAILY 10 tabs 0RF 5 days benzonatate 100 mg PO bid-tid PRN 21 caps 0RF Cough 7 days Coding Level of Care Code Est Pt Level 3 (33193) Diagnoses URI with cough and congestion J06.9
--- OUTSIDE RECORDS SUMMARY | 2024-12-16 19:06 | XMS_ITS | Encounter Summary ---
Author Organization [facility] Address [address] [facility] [address] [place] [address] Phone Care Team Providers Care Radial Arm Saw Operator Name Role Phone Ry Soriano MD Primary Care Provider [phone] Encounter Details Date Type Department Care Team (Late Contact Info) Description 12/20/2018 Procedure Pass [facility] [address] [place] [address] Social History Tobacco Use Types Packs/Day Years [...] AM EST Office Visit [facility] [address] [place] [address] Jany Trevino PA-C 22 [place] [address] 05/13/2025 11:40 AM EST Office Visit [facility] [address] [place] [address] Sushma Arias MD [address] [address] [email or web address] documented as of this encounter Visit Diagnoses Not on filedocumented in this encounter Care Teams Radial Arm Saw Operator Relationship Specialty Start Date End Date Bo, Ry Horan MD [address] [place] [address] [place] [phone] PCP - General Internal Medicine 07/29/18 documented as of this encounter Additional Source Comments The information contained in this document represents components of the legal health record. It is not the complete legal health record.[facility]
--- OUTSIDE RECORDS SUMMARY | 2024-12-16 19:06 | XMS_ITS | Encounter Summary ---
Author Organization [facility] Address [address] [place] [address] Phone Care Team Providers Care Trailer Steerer Name Role Phone Ry Soriano MD Primary Care Provider [phone] Reason for Referral * - Closed Specialty Diagnoses / Procedures Referred By Contholly t Referred To Contact Procedures NM Bone Outside (No Interpretation) Binu Oliver MD Phone: tel: fax: [email or web address] Referral ID Status Reason Start Date Expiration Date Visits Re quested Visits Authorized [id number] Closed 08/16/2018 08/16/2019 1 1 Encounter Details Date Type Department Care Team (Late st Contact Info) Description 08/16/2018 Transcribe Orders [facility] [address] [place] [address] Pierre Contreras [address] [place] [address] [email or web address] Social History Tobacco Use Types [...] AM EST Office Visit [facility] [address] [place] [address] Jany Trevino PA-C [address] [place] [address] 05/13/2025 11:40 AM EST Office Visit [facility] [address] [place] [address] Sushma Arias MD [address] [place] [address] documented as of this encounter Results * US Vascular Outside (No Interpretation) (08/16/2018 10:32 AM EDT) Narrative SYSTEMGENERATED, DOCUMENTATION - 08/16/2018 10:32 AM EDT This study is for PACS storage only and not for interpretation. us Binu Oliver MD CV US VASCULAR Final Result * XR Lower Extremity Outside (No Interpretation) (08/16/2018 10:32 AM EDT) Narrative [facility] - 08/16/2018 10:32 AM EDT This [...] INTE RPRETATION Final Result Performing Organization Address City/[facility]/ZIP Co de Phone Number [email or web address] * NM Bone Outside (No Interpretation) (08/16/2018 10:32 AM EDT) Narrative [facility] - 08/16/2018 10:32 AM EDT This study is for PACS storage only and not for interpretation. us Binu Oliver MD IMG OUTSIDE IMAGING W/OUT INTE RPRETATION Final Result Performing Organization Address [facility] Co de Phone Number [email or web address] documented in this encounter Visit Diagnoses Not on filedocumented in this encounter Care Teams Trailer Steerer Relationship Specialty Start Date End Date Ry Soriano MD [address] [place] [address] PCP - General Internal Medicine 07/29/18 documented as of this encounter Additional Source Comments The information contained in this document represents components of the legal health record. It is not the complete legal health record.[facility]
--- OUTSIDE RECORDS SUMMARY | 2024-12-16 19:06 | XMS_ITS | Encounter Summary ---
Author Organization [facility] Address [address] [facility] [address] [place] [address] Phone Care Team Providers Care Scout Executive Name Role Phone Ry Soriano MD Primary Care Provider [phone] Encounter Details Date Type Department Care Team (Late Contact Info) Description 12/20/2018 Procedure Pass [facility] [address] [place] [address] Social History Tobacco Use Types Packs/Day Years [...] AM EST Office Visit [facility] [address] [place] [address] Jany Trevino PA-C 22 [place] [address] 05/13/2025 11:40 AM EST Office Visit [facility] [address] [place] [address] Sushma Arias MD [address] [place] [address] [email or web address] documented as of this encounter Visit Diagnoses Not on filedocumented in this encounter Care Teams Scout Executive Relationship Specialty Start Date End Date Ry Soriano MD [address] [place] [address] Drive [address] [place] [phone] PCP - General Internal Medicine 07/29/18 documented as of this encounter Additional Source Comments The information contained in this document represents components of the legal health record. It is not the complete legal health record.[facility]
--- OUTSIDE RECORDS SUMMARY | 2024-12-16 19:06 | XMS_ITS | Encounter Summary ---
Author Organization [facility] Address [address] [facility] [address] [place] [address] Phone Care Team Providers Care Rug Inspector Name Role Phone Ry Soriano MD Primary Care Provider [phone] Encounter Details Date Type Department Care Team (Late st Contact Info) Description 07/04/2021 Procedure Pass [facility] Periop [address] [place] [address] Social History Tobacco Use Types Packs/Day Years [...] 07/06/2021 9:00 AM Bibiana Xiong, RN * Blanco Suicide Severity Rating Scale (Screener/Recent Self-Report) Question [...] AM EST Office Visit [facility] 22 [place] [address] Jany Trevino PA-C [address] [place] [address] 05/13/2025 11:40 AM EST Office Visit [facility] [address] [place] [address] Sushma Arias MD [address] [place] [address] documented as of this encounter Visit Diagnoses Not on filedocumented in this encounter Care Teams Rug Inspector Relationship Specialty Start Date End Date Ry Soriano MD [address] [facility] [address] [place] [phone] PCP - General Internal Medicine 07/29/18 documented as of this encounter Additional Source Comments The information contained in this document represents components of the legal health record. It is not the complete legal health record.[facility]
--- OUTSIDE RECORDS SUMMARY | 2024-12-16 19:06 | XMS_ITS | Encounter Summary ---
Author Organization [facility] Address [address] [facility] [address] [place] [address] Phone Care Team Providers Care Gis Administrator Name Role Phone Ry Soriano MD Primary Care Provider [phone] Encounter Details Date Type Department Care Team [...] AM EST Office Visit [facility] [address] [place] [address] Jany Trevino PA-C 22 [place] [address] 05/13/2025 11:40 AM EST Office Visit [facility] [address] [place] [address] Sushma Arias MD [address] [place] [address] [email or web address] documented as of this encounter Visit Diagnoses Not on filedocumented in this encounter Care Teams Gis Administrator Relationship Specialty Start Date End Date Ry Soriano MD [address] [place] [address] Drive [address] [place] [address] PCP - General Internal Medicine 07/29/18 documented as of this encounter Additional Source Comments The information contained in this document represents components of the legal health record. It is not the complete legal health record.[facility]
--- OUTSIDE RECORDS SUMMARY | 2024-12-16 19:07 | XMS_ITS | Patient Health Record ---
Author Organization [facility] Address [address] [facility] [place] [address] Care Team Providers Care Detailer [employer] Name Role Phone Ry Soriano Primary Care Provider Clive Cardoso Unavailable [phone] Allergies Allergen (clinical drug ingredient) Drug/Non Drug [...] Problem Acquired hammer toe of right foot (6815802557384 105) Other hammer toe(s) (acquired), right foot (M20.41) Active confirmed Problem Type 2 diabetes mellitus with peripheral angiopathy (713031063) Type 2 diabetes mellitus with diabetic peripheral angiopathy without gangrene (E11.51) Active confirmed Q7(A), Q8(2B), Q9(1B,2C) Problem Acquired hammer toe of left foot (3754324363998 103) Other hammer toe(s) (acquired), left foot (M20.42) Active confirmed Problem Plantar wart (29467235) Plantar wart (B07.0) Active confirmed Vital Signs Blood pressure diastolic 64 mm Hg 11/17/2024 Height 5ft 5in in 11/17/2024 Blood pressure systolic 131 mm Hg 11/17/2024 Weight 194 lbs 11/17/2024 BMI 32.28 kg/m2 11/17/2024 Procedures Procedure Date Ordered Date Performed Result Body Sit e 78356-UVORFCO NAIL, 6 OR MORE 03/05/2024 N/A 94961-Xbad Destruction, 1-14 03/05/2024 N/A 94784-HMTJ SKIN LESIONS, OVER 4 03/05/2024 N/A 94280-UARAUUB NAIL, 6 OR MORE 06/02/2024 N/A 03422-Zeyg Destruction, 1-14 06/02/2024 N/A 00208-HCOP SKIN LESIONS, OVER 4 06/02/2024 N/A 20619-PIKAQUT NAIL, 6 OR MORE 11/17/2024 N/A 38844-Cvvs Destruction, 1-14 11/17/2024 N/A 07047-GADN SKIN LESIONS, OVER 4 11/17/2024 N/A Encounters Encounter Location Date Provider Diagnosis [address] [address] 03/05/2024 Clive Vilchis Type 2 diabetes mellitus with diabetic peripheral angiopathy without gangrene E11.51 ; Plantar wart B07.0 ; Tinea unguium B35.1 ; Pain in right toe(s) M79.674 ; Pain in left toe(s) M79.675 ; Right foot pain M79.671 ; Other hammer toe(s) (acquired), right foot M20.41 and Other hammer toe(s) (acquired), left foot M20.[address] [address] 06/02/2024 Clive Vilchis Type 2 diabetes mellitus with diabetic peripheral angiopathy without gangrene E11.51 ; Plantar wart B07.0 ; Tinea unguium B35.1 ; Pain in right toe(s) M79.674 ; Pain in left toe(s) M79.675 ; Right foot pain M79.671 and Tinea pedis of both feet B35.[address] [address] 11/17/2024 Clive Vilchis Type 2 diabetes mellitus with diabetic peripheral angiopathy without gangrene E11.51 ; Plantar wart B07.0 ; Tinea unguium B35.1 ; Pain in right toe(s) M79.674 ; Pain in left toe(s) M79.675 ; Right foot pain M79.671 and Tinea pedis of both feet B35.3 [facility] [address] [address] 08/21/2024 Clive Vilchis Assessments Encounter Date Diagnosis [...] Q9(1B,2C) 11/17/2024 Plantar wart (ICD-10 - B07.0) 03/05/2024 Type 2 diabetes mellitus with diabetic peripheral angiopathy without gangrene (ICD-10 - E11.51) Q7(A), Q8(2B), Q9(1B,2C) 03/05/2024 Plantar wart (ICD-10 - B07.0) 03/05/2024 Tinea unguium (ICD-10 - B35.1) 11/17/2024 Tinea unguium (ICD-10 - B35.1) 06/02/2024 Tinea unguium (ICD-10 - B35.1) 11/17/2024 Pain in right toe(s) (ICD-10 - M79.674) 03/05/2024 Pain in right toe(s) (ICD-10 - M79.674) 06/02/2024 Pain in right toe(s) (ICD-10 - M79.674) 03/05/2024 Pain in left toe(s) (ICD-10 - M79.675) 11/17/2024 Pain in left toe(s) (ICD-10 - M79.675) 06/02/2024 Pain in left toe(s) (ICD-10 - M79.675) 11/17/2024 Right foot pain (ICD-10 - M79.671) 03/05/2024 Right foot pain (ICD-10 - M79.671) 06/02/2024 Right foot pain (ICD-10 - M79.671) 11/17/2024 Tinea pedis of both feet (ICD-10 - B35.3) 03/05/2024 Other hammer toe(s) (acquired), right foot (ICD-10 - M20.41) Patient Educated with: DIABETIC FOOT CARE INSTRUCTIONS.p df (DIABETIC FOOT CARE INSTRUCTIONS.p df) 06/02/2024 Tinea pedis of both feet (ICD-10 - B35.3) 03/05/2024 Other hammer toe(s) (acquired), left foot (ICD-10 - M20.42) 06/02/2024 Other 11/17/2024 Other Plan Of Treatment Pending Test Test Name Order Date 02784-MAEKWAN NAIL, 6 OR MORE 03/05/2024 35027-YHQLCVV NAIL, 6 OR MORE 06/02/2024 66337-BGDWEGR NAIL, 6 OR MORE 11/17/2024 72215-Lvxy Destruction, 1-14 11/17/2024 73237-Phun Destruction, 1-14 06/02/2024 79053-Rxni Destruction, 1-14 03/05/2024 97759-FXWR SKIN LESIONS, OVER 4 03/05/20 24 90813-BOCP SKIN LESIONS, OVER 4 06/03/19 25 02693-BOUE SKIN LESIONS, OVER 4 11/18/19 25 39151-XKYU SKIN LESIONS, 2 TO 4 06/15/19 24 10446-CMGR SKIN LESIONS, 2 TO 4 09/14/19 24 Next Appt Details Provider Name:Clive Vilchis , 03/02/2025 09:45:00 AM, [address] [facility], [address], [place], [address], Insurance Providers Payer Name Payer Address Payer Phone Subscriber Number Group Number Insured Name Patient Relationship to Insured Coverage Start Date Coverage End Date [facility] [employer] Claims [address] [place] [address] [phone] [id number] Lauren Crowley Self - patient is the insured Medical (General) History Medical History History ICD Code Arthritis Back,Hip,and Knee pain Cataracts covid-19 Diabetic High blood pressure Reflux ( GERD) Chicken pox Hypercholesterolemia Surgical History Surgery Date(Month/Year) triple bypass 2020 knee replacement hysterectomy 2022
--- OUTSIDE RECORDS SUMMARY | 2024-12-16 19:07 | XMS_ITS | Clinical Summary ---
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 Vilchis recently. -Labs today -Adjust Lantus [...] her methimazole. Had blood work done at [facility] will get results to determine if medication [...] today - Routine follow-up scheduled with her classroom teacher next week - Follow-up with Roxanna on [...] her glucose levels. Up to date with [facility], scheduled to see at the end of [...] her glucose levels. Up to date with [facility]. Scheduled to see podiatry. Labs were done at [facility] will call for results Assessment & Plan [...] her glucose levels. Up to date with [facility]. Labs ordered today Assessment & Plan (02/16/2023 10:04 AM EST): Control is reasonable based upon the patient's SMBG readings. No frequent hypoglycemia. She recently has had a couple episodes of severe hypoglycemia based upon the definition of less than 54. She is not sure what caused the lows, she corrected with orange juice and was fine. She hasn't received her dexcom supplies from [employer] yet. The office called today to see [...] her glucose levels. Up to date with [facility]. Labs ordered today Assessment & Plan (11/13/2022 [...] her glucose levels. Up to date with [facility]. Labs ordered today Assessment & Plan (08/07/2022 4:45 PM EDT): Reasonable control by SMBG. Last A1c is not available. Waiting for old records from [facility]. Taking 27 units of Lantus at bedtime and NovoLog by sliding scale between 8 to 36 units 3 times a day before meals. She is also on 1000 mg metformin twice a day. Patient was using the kisha 2 CGM, her prescription was canceled by [facility] because of not getting supporting medical records. No frequent or severe hypoglycemia. I asked patient to call St[facility] for prescription on Kisha 2 to be [...] Encounters Date Type Department Care Team Description 12/09/2024 Orders Only [facility] [address] [place] [address] [place] [address] Sushma Arias MD Type 2 diabetes mellitus with proteinuria (Primary Dx); Toxic thyroid nodule; Hyperparathyroidism 11/05/2024 12:26 PM EDT - 11/05/2024 11:59 PM EDT Hospital Encounter [facility] [address] [place] [address] [place] [address] Sushma Arias MD Discharge Disposition: Home or Self Care 11/05/2024 11:20 AM EDT Office Visit [facility] [address] [place] [address] [place] [address] Sushma Arias MD Type 2 diabetes mellitus with diabetic peripheral angiopathy without gangrene, with long-term current use of insulin (Primary Dx); Toxic thyroid nodule; Type 2 diabetes mellitus with proteinuria; Vitamin B12 deficiency; Hypercalcemia 10/25/2024 Refill [facility] [address] [place] [address] [place] [address] Sushma Arias MD Medication Refill from Last [...] AM EST Office Visit [facility] [address] [place] [address] Jany Trevino PA-C [address] [place] [address] 05/13/2025 11:40 AM EST Office Visit [facility] [address] [place] [address] Sushma Arias MD [address] [place] [address] [address] [place] [address] [email or web address] Health Maintenance Due Date Last Done Comments DEPRESSION SCREENING 1957 HEPATITIS C SCREENING 08/18/1963 ZOSTER VACCINES (1 of 2) 08/18/1995 OSTEOPOROSIS SCREENING INITIAL (ONE-TIME) 2010 DIABETIC EYE EXAM 12/12/2018 RSV VACCINE (1 - 1-dose 75+ series) 2020 Adult Td,Tdap Booster 07/28/2024 07/28/2014 INFLUENZA VACCINE (#1) 2024 , 01/05/2021, 01/23/2020, Additional history exists COVID-19 VACCINE [...] this topic Medical Devices Implanted Type Area Pacu Nurse Device Identifier Shelf Expiration Date Model / Serial / Lot Knee Wedge Size 3 Plate Bone Tibial Stemmed Nexgen Precoat 03c Cs/1bx/1ea - [id number] Implanted:Qty: 1 on 12/20/2018 by Binu Oliver MD at [facility] NODATA Left: Knee MANJEET / DIV OF CRAZE 06/30/2028 [id number] / / Knee Stem 145mm 100 Od 14 Truck Trailer Final Inspector Tivanium Tibial Solid Screw Primary Straight Impl Nexgen - [id number] Implanted:Qty: 1 on 12/20/2018 by Binu Oliver MD at [facility] STANDARD Left: Knee MANJEET / DIV OF CRAZE 05/30/2028 [id number] / / [id number] Knee Implant 3 4 12mm Size Cd 3to4 Femoral Articular Surface Nexgen Lps Flex Fixed 05 - [id number] Implanted:Qty: 1 on 12/20/2018 by Binu Oliver MD at [facility] STANDARD Left: Knee MANJEET / DIV OF CRAZE 07/30/2026 [id number] / / [id number] Block Augment 10mm 5448 03 27 Sz Tibial Nexgen Trabecular Metal Rt Lateral Lt Medial - [id number] Implanted:Qty: 1 on 12/20/2018 by Binu Oliver MD at [facility] STANDARD Left: Knee MANJEET / DIV OF CRAZE 07/01/2023 [id number] / / [id number] Block Augment 10.0mm Size 3 Tibial Nexgen Trabecular Metal Lt Lateral Rt Medial - [id number] Implanted:Qty: 1 on 12/20/2018 by Binu Oliver MD at [facility] STANDARD Left: Knee MANJEET / DIV OF CRAZE 07/31/2023 [id number] / / [id number] Knee Implant 38x8.5mm Patella Nexgen All Poly Standard 06 - [id number] Implanted:Qty: 1 on 12/20/2018 by Binu Oliver MD at [facility] STANDARD Left: Knee MANJEET / DIV OF CRAZE 05/30/2026 [id number] / / [id number] Block Augment 5mm Knee Femoral Nexgen Trabecular Metal Distal Size D 19 - [id number] Implanted:Qty: 1 on 12/20/2018 by Binu Oliver MD at [facility] STANDARD Left: Knee MANJEET / DIV OF SLIDELL Salsify 03/01/2022 [id number] / / [id number] Block Augment 5mm Knee Femoral Nexgen Trabecular Metal Distal Size D 19 - [id number] Implanted:Qty: 1 on 12/20/2018 by Binu Oliver MD at [facility] STANDARD Left: Knee MANJEET / [facility] 07/01/2023 [id number] / / [id number] Knee Implant Component Femoral Nexgen Complete Legacy Zimaloy Constrained Condylar Lt Size D Cs/1bx/1ea - [id number] Implanted:Qty: 1 on 12/20/2018 by Binu Oliver MD at [facility] STANDARD Left: Knee MANJEET / DIV OF CRAZE 05/02/2028 [id number] / / [id number] Knee Stem 200mm 155 Od 13 Truck Trailer Final Inspector Tivanium Tibial Solid Screw Primary Straight Impl Nexgen - [id number] Implanted:Qty: 1 on 12/20/2018 by Binu Oliver MD at [facility] STANDARD Left: Knee MANJEET / DIV OF SLIDELL Salsify 11/30/2022 [id number] / / [id number] Knee Implant 12mm Size 3 Component Articular Surface Nexgen Uhmwpe Lcck Cd Bx/1ea - [id number] Implanted:Qty: 1 on 07/04/2021 by Binu Oliver MD at [facility] STANDARD Left: Knee MANJEET / DIV OF CRAZE [id number] 05/31/2027 [id number] / / [id number] Left Tkr Cement Bone 40gr Palacos R And G Gentamicin Radiopaque Deangelo/1ea - [id number] Implanted:Qty: 2 on 12/20/2018 by Binu Oliver MD at [facility] Left: Knee MANJEET / DIV OF CRAZE 05/30/2021 [id number] / / [id number] Procedures Procedure Name Priority Date/Time Associated Diagnosis [...] component not applicable or not reported. g/dL [facility] [address] Zamarripaprotein GL Test component not applicable or not reported. g/dL [facility]PATH [address] Zamarripaprotein AK Test component not applicable or not reported. g/dL [facility]PATH [address] M-protein AL Test component not applicable or not reported. g/dL [facility] M-protein MK Test component not applicable or not reported. g/dL [facility] M-protein ML Test component not applicable or not reported. g/dL [facility] DR Glycosylation Test component not applicable or not reported. [facility] Flag, M-protein Isotype Negative Negative [facility] QMPTS Interpretation No monoclonal protein detected. [facility] Comment: (NOTE) ADDITIONAL INFORMATION The submitted sample was assayed by five separate immunopurifications for IgG, IgA, IgM, kappa and lambda. The result reflects the findings of either no monoclonal protein detected or those monoclonal immunoglobulins that were detected. This test was developed and its performance characteristics determined by [facility] in a manner consistent with CLIA requirements. This test has not been cleared or approved by the U.S. Food and Drug Administration. IgA 473(H) 61 - 356 mg/dL [facility] DR IgM 102 37 - 286 mg/dL [facility] IgG 1,170 767 - 1,590 mg/dL [facility] Therapeutic Antibody Administered? No [facility] Comment:Corrected on 11/10 A T 1205: previously reported as NO Blood 11/05/2024 12:3 6 PM EDT 11/05/2024 12:46 PM EDT us Sushma Arias MD LAB BLOOD ORDERABLES Edited Re sult - Final [facility] [address] [place] [address] * Methylmalonic acid, serum (11/05/2024 12:36 PM EDT) METHYLMALONIC ACID 0.15 <=0.40 nmol/mL [facility] DPT OF LAB MED AND PAT+ Comment: (NOTE) ADDITIONAL INFORMATION This test was developed and its performance characteristics determined by [facility] in a manner consistent with CLIA requirements. This test has not been cleared or approved by the U.S. Food and Drug Administration. Blood 11/05/2024 12:3 6 PM EDT 11/05/2024 12:46 PM EDT Sushma Arias MD LAB BLOOD ORDERABLES Final Res ult [facility] DPT OF LAB MED AND PAT+ [address] [place] [address] * (ABNORMAL) Parathyroid hormone (PTH) (11/05/2024 12:36 PM EDT) PARATHYROID HORMONE 100(H) 15 - 65 pg/mL [facility] Blood 11/05/2024 12:3 6 PM EDT 11/05/2024 12:47 PM EDT Sushma Arias MD LAB BLOOD ORDERABLES Final Res ult [facility] [address] [place] [address] * (ABNORMAL) Comprehensive metabolic panel (11/05/2024 12:29 PM EDT) SODIUM 139 133 - 146 mmol/L [facility] POTASSIUM 3.5 3.3 - 5.1 mmol/L [facility] CHLORIDE 104 96 - 108 mmol/L [facility] CO2 21 21 - 35 mmol/L [facility] BUN 12 6 - 19 mg/dL [facility] CREATININE 1.10 0.5 - 1.5 mg/dL [facility] GLUCOSE 88 70 - 99 mg/dL [facility] ALBUMIN 4.0 3.9 - 4.8 g/dL [facility] TOTAL PROTEIN 7.6 6.5 - 8.0 g/dL [facility] CALCIUM 10.0 8.4 - 10.3 mg/dL [facility] ALKALINE PHOSPHATASE 114 39 - 117 U/L [facility] TOTAL BILIRUBIN 0.3 0.0 - 1.2 mg/dL [facility] AST 22 0 - 37 U/L [facility] ALT 8 0 - 40 U/L [facility] GLOBULIN 3.6 1 - 4.8 g/dL [facility] EGFR 51(L) >59 mL/min/1.7 3m2 [facility] Comment:Estimated glomerular filtration rate calculated using the CKD-EPI refit equation. ANION GAP 18 10 - 20 mmol/L [facility] Blood 11/05/2024 12:2 9 PM EDT 11/05/2024 12:45 PM EDT us Sushma Arias MD LAB BLOOD ORDERABLES Final Res ult Performing Organization Address City/[facility]/ZIP Co de Phone Number [address] [address] * 25-OH vitamin D (11/05/2024 12:29 PM EDT) 25 [place] VIT D (TOTAL) 43 30 - 60 ng/mL [facility] Blood 11/05/2024 12:2 9 PM EDT 11/05/2024 12:45 PM EDT us Sushma Arias MD LAB BLOOD ORDERABLES Final Res ult [address] [address] * (ABNORMAL) CBC and differential (11/05/2024 12:29 PM EDT) WBC 10.33 4.00 - 11.00 K/uL [facility] RBC 3.60(L) 4.00 - 5.20 M/uL [facility] HGB 9.1(L) 12.0 - 16.0 g/dL [facility] HCT 31.6(L) 36.0 - 46.0 % [facility] PLT 359 150 - 450 K/uL [facility] MCV 87.8 80.0 - 100.0 fL [facility] MCH 25.3(L) 27.0 - 31.0 pg [facility] MCHC 28.8(L) 32.0 - 36.0 g/dL [facility] RDW 17.2(H) 11.5 - 14.5 % [facility] MPV 11.8 8.4 - 12.0 fL [facility] NRBC 0.00 0.00 /100 WBCs [facility] ABSOLUTE NRBC 0.00 0.00 K/uL [facility] DIFF METHOD Auto [facility] NEUTS 65.6 48.0 - 76.0 % [facility] LYMPHS 26.4 18.0 - 41.0 % [facility] MONOS 4.6 4.0 - 11.0 % [facility] EOS 2.6 0.0 - 5.0 % [facility] BASOS 0.4 0.0 - 1.5 % [facility] Granulocytes, immature (%) 0.4 0.0 - 0.9 % [facility] ABSOLUTE NEUTS 6.77 1.92 - 7.60 K/uL [facility] ABSOLUTE LYMPHS 2.73 0.72 - 4.10 K/uL [facility] ABSOLUTE MONOS 0.48 0.16 - 1.10 K/uL [facility] ABSOLUTE EOS 0.27 0.00 - 0.50 K/uL [facility] ABSOLUTE BASOS 0.04 0.00 - 0.15 K/uL [facility] Granulocytes, immature 0.04 0.00 - 0.09 K/uL [facility] Blood 11/05/2024 12:2 9 PM EDT 11/05/2024 12:45 PM EDT us Sushma Arias MD LAB BLOOD ORDERABLES Final Res ult [facility] [address] [place] [address] * Free T3 (11/05/2024 12:29 PM EDT) FREE T3 2.7 2.0 - 4.4 pg/mL [facility] Blood 11/05/2024 12:2 9 PM EDT 11/05/2024 12:45 PM EDT Sushma Arias MD LAB BLOOD ORDERABLES Final Res ult Performing Organization Address City/[facility]/ZIP Co de Phone Number [address] [address] * TSH (11/05/2024 12:29 PM EDT) TSH 1.07 0.27 - 4.20 uIU/mL [facility] Blood 11/05/2024 12:2 9 PM EDT 11/05/2024 12:45 PM EDT Sushma Arias MD LAB BLOOD ORDERABLES Final Res ult Performing Organization Address [facility] Co de Phone Number [address] [address] * (ABNORMAL) Free T4 (11/05/2024 12:29 PM EDT) FREE T4 0.8(L) 0.9 - 1.7 ng/dL [facility] Blood 11/05/2024 12:2 9 PM EDT 11/05/2024 12:45 PM EDT Sushma Arias MD LAB BLOOD ORDERABLES Final Res ult Performing Organization Address City/[facility]/ZIP Co de Phone Number [address] [address] * Phosphorus (11/05/2024 12:29 PM EDT) PHOSPHORUS 3.5 2.7 - 4.5 mg/dL [facility] Blood 11/05/2024 12:2 9 PM EDT 11/05/2024 12:45 PM EDT us Sushma Arias MD LAB BLOOD ORDERABLES Final Res ult [address] [address] * Vitamin B12 (11/05/2024 12:29 PM EDT) VITAMIN B12 1,131 232 - 1,245 pg/mL [facility] Blood 11/05/2024 12:2 9 PM EDT 11/05/2024 12:45 PM EDT us Sushma Arias MD LAB BLOOD ORDERABLES Final Res ult Performing Organization Address [facility]/ZIP Co de Phone Number [address] [address] * (ABNORMAL) Hemoglobin A1c (06/10/2024 10:06 AM EDT) HEMOGLOBIN A1C 7.2(H) 4.3 - 5.8 % [facility] Blood 06/10/2024 10:0 6 AM EDT 06/10/2024 10:14 AM EDT Jany Trevino PA-C LAB BLOOD ORDERABL ES Final Result Performing Organization Address [facility]/ZIP Co de Phone Number [address] [address] from Last 3 Months or Most Recently Relevant to Health Maintenance Insurance [facility]PLAC[facility] MEDIC[facility] REPLACEMENT [address] [facility] [place] [facility] Advance Directives For more information, please contact: [phone] (9AM - 5PM [facility], Sunday-Sunday) Documents on File Type Date Recorded Patient Tube And Rod Straightener Expl anation Healthcare Proxy 12/18/2018 HEALTH CARE [...] Agents on File Name Relationship Healthcare Agent Maria Parham Healthhi p Communication Gretchen Crowley Daughter .Primary Health Care Agent (Proxy form on file) Care Teams Supervisor Housecleaner Relationship Specialty Start Date End Date Ry Soriano MD [address] [place] [address] PCP - General Internal Medicine 07/29/18 Additional Source Comments The information contained in this document represents components of the legal health record. It is not the complete legal health record.[facility]
== END 2024-12-16 16:59 | disposition home or self-care (01) ==
PROVIDERS: PCP Internal Medicine; Visit Provider Physician Assistant Medical
DX: J06.9 Acute upper respiratory infection, unspecified (principal)

== ENCOUNTER → 2024-12-16 16:18 | Outpatient (BNVA) | payer OTHER, SELFPAY | PROVIDERS: PCP Internal Medicine; Visit Provider Physician Assistant Medical | DX: J06.9 Acute upper respiratory infection, unspecified (principal); R05.9 Cough, unspecified; R09.02 Hypoxemia; Z99.81 Dependence on supplemental oxygen | CPT/HCPCS: 99212 ==

== ENCOUNTER 2024-12-17 12:39 | Outpatient (REF) | payer OTHER, SELFPAY ==
--- NOTE | ~2024-12-17 | MM_ITS ---
EXAMINATION: DXA BONE DENSITY AXIAL HISTORY: M81.0 - Age-related osteoporosis without current pathological fracture TECHNIQUE: [employer] Dual energy absorptiometry (DEXA) of the lumbar spine, total left hip, and femoral neck was performed. COMPARISON: Comparison is made with the prior examination dated 10/25/2017. FINDINGS: The bone mineral density of the lumbar spine is 1.262 g/cm2, corresponding to a T-score of 0.7, and a Z-score of 1.1. This is indicative of normal bone mineral density. The bone mineral density of the left total hip is 0.914 g/cm2, corresponding to a T-score of -0.7, and a Z-score of -0.2. This is indicative of normal bone mineral density. This represents a BMD change of -10.7% compared to the prior exam. This is statistically significant. The bone mineral density of the left femoral neck is 0.972 g/cm2, corresponding to a T-score of -0.5, and a Z-score of 0.3. This is indicative of normal bone mineral density. This represents a BMD change of -6.2% compared to the prior exam. FRACTURE RISK: The FRAX index suggests a ten year probability of major osteoporotic fracture of 4.1%, and of hip fracture 0.9%. MM/XR DEXA axial skeleton IMPRESSION: Based on bone mineral density, and according to World Health Organization (WHO) criteria, the diagnosis is consistent with normal bone mineral density. Statistically, 68% of repeat scans fall within 1 SD (+/- 0.010 g/cm2 for AP spine L1-L4) and 1 SD (+/- 0.012 g/cm2 for femur total) FRAX is a trademark of the [employer]'s [employer] Metabolic Bone Disease, a World Health Organization (WHO) Collaborating Center. Electronically signed by: Reid Trejo MD 12/17/2024 01:40 PM EDT
== END 2024-12-17 12:40 | disposition home or self-care (01) ==
LOC: HO.MAMMO 12:39
PROVIDERS: PCP Internal Medicine; Visit Provider Internal Medicine
DX: Z12.31 Encounter for screening mammogram for malignant neoplasm of breast (principal); M81.0 Age-related osteoporosis without current pathological fracture
CPT/HCPCS: 77063; 77067; 77080

== ENCOUNTER → 2024-12-17 13:30 | Outpatient (BNV) | payer OTHER, SELFPAY | PROVIDERS: PCP Internal Medicine; Visit Provider Radiology Diagnostic Radiology | DX: E28.39 Other primary ovarian failure (principal) | CPT/HCPCS: 77080 ==

== ENCOUNTER 2025-01-13 09:24 | Outpatient (REF) | payer OTHER, SELFPAY ==
--- OUTSIDE RECORDS SUMMARY | 2024-08-21 06:45 | XMS_ITS ---
Author Organization [facility] Address [address] [place] [address] Care Team Providers Care Landscape Nurseryman Name Role Phone Ry Soriano Primary Care Provider Unavailabl Clive Green Unavailable [phone] Encounters Encounter Location Date [facility] [address] [address] 08/21/2024 Clive Vilchis Plan Of Treatment Next Appt Details Provider Name:Clive Vilchis , 03/02/2025 09:45:00 AM, [address] [place] [address], [address], Progress Notes * BALBINA Lauren BDOB:1945 ( 79 yo F)Acc No.[id number]:08/21/2024 Progress Note Patient: Lauren CHRISTIANSON Provider: Gus Vilchis DPM :1945 A ge:79 Y S ex:Female Date:08/21/2024 Address:[address] [place] [address] [address] [facility] Pcp:Ry Soriano Subjective: * Chief Complaints: * [...] 0 08/21/2024 Generated for Ollie lea/Neida/Cammy on: 1 10:20 AM EDT
--- OUTSIDE RECORDS SUMMARY | 2025-01-13 10:20 | XMS_ITS | Encounter Summary ---
Author Organization [facility] Address [address] [place] [address] Phone Care Team Providers Care Water Control Supervisor Name Role Phone Ry Soriano MD Primary Care Provider [phone] Reason for Referral * - Closed Specialty Diagnoses / Procedures Referred By Contholly t Referred To Contact Procedures NM Bone Outside (No Interpretation) Binu Oliver MD Phone: tel: fax: mailto:[email or web address] Referral ID Status Reason Start Date Expiration Date Visits Re quested Visits Authorized [id number] Closed 08/16/2018 08/16/2019 1 1 Encounter Details Date Type Department Care Team (Late st Contact Info) Description 08/16/2018 Transcribe Orders [facility] [address] [place] [phone] Pierre Contreras [address] [place] [id number] [email or web address] Social History Tobacco Use Types [...] AM EST Office Visit [facility] [address] [place] [address] Jany Trevino PA-C [address] [place] [address] 05/13/2025 11:40 AM EST Office Visit [facility] [address] [place] [address] Sushma Arias MD [address] [place] [phone] documented as of this encounter Results * US Vascular Outside (No Interpretation) (08/16/2018 10:32 AM EDT) Narrative SYSTEMGENERATED, DOCUMENTATION - 08/16/2018 10:32 AM EDT This study is for PACS storage only and not for interpretation. us Binu Oliver MD CV US VASCULAR Final Result * XR Lower Extremity Outside (No Interpretation) (08/16/2018 10:32 AM EDT) Narrative [facility] - 08/16/2018 10:32 AM EDT This [...] RPRETATION Final Result Performing Organization Address City/[facility]/ZIP Co de Phone Number [email or web address] * NM Bone Outside (No Interpretation) (08/16/2018 10:32 AM EDT) Narrative [facility] - 08/16/2018 10:32 AM EDT This study is for PACS storage only and not for interpretation. us Binu Oliver MD IMG OUTSIDE IMAGING W/OUT INTE RPRETATION Final Result Performing Organization Address [facility] Co de Phone Number [email or web address] documented in this encounter Visit Diagnoses Not on filedocumented in this encounter Care Teams Water Control Supervisor Relationship Specialty Start Date End Date Ry Soriano MD [address] [place] [address] PCP - General Internal Medicine 07/29/18 documented as of this encounter Additional Source Comments The information contained in this document represents components of the legal health record. It is not the complete legal health record.[facility]
--- OUTSIDE RECORDS SUMMARY | 2025-01-13 10:21 | XMS_ITS | Encounter Summary ---
Author Organization [facility] Address [address] [facility] [address] [place] [address] Phone Care Team Providers Care Accredited Pharmacy Technician Name Role Phone Ry Soriano MD Primary Care Provider [phone] Encounter Details Date Type Department Care Team [...] AM EST Office Visit [facility] [address] [place] [address] Jany Trevino PA-C [address] [place] [address] 05/13/2025 11:40 AM EST Office Visit [facility] [address] [place] [address] Sushma Arias MD [address] [place] [address] [email or web address] documented as of this encounter Visit Diagnoses Not on filedocumented in this encounter Care Teams Accredited Pharmacy Technician Relationship Specialty Start Date End Date Ry Soriano MD [address] [place] [address] Drive [address] [place] [address] PCP - General Internal Medicine 07/29/18 documented as of this encounter Additional Source Comments The information contained in this document represents components of the legal health record. It is not the complete legal health record.[facility]
--- OUTSIDE RECORDS SUMMARY | 2025-01-13 10:21 | XMS_ITS | Encounter Summary ---
Author Organization [facility] Address [address] [facility] [address] [place] [address] Phone Care Team Providers Care Chief Nursing Executive Name Role Phone Ry Soriano MD Primary Care Provider Encounter Details Date Type Department Care Team (Late Contact Info) Description 12/20/2018 Procedure Pass [facility] [address] [place] [address] Social History Tobacco Use Types Packs/Day Years [...] AM EST Office Visit [facility] [address] [place] [address] Jany Trevino PA-C 22 [place] [address] 05/13/2025 11:40 AM EST Office Visit [facility] [address] [place] [address] Sushma Arias MD [address] [address] [email or web address] documented as of this encounter Visit Diagnoses Not on filedocumented in this encounter Care Teams Chief Nursing Executive Relationship Specialty Start Date End Date Bo, Ry Horan MD [address] [place] [address] [place] [phone] PCP - General Internal Medicine 07/29/18 documented as of this encounter Additional Source Comments The information contained in this document represents components of the legal health record. It is not the complete legal health record.[facility]
--- OUTSIDE RECORDS SUMMARY | 2025-01-13 10:21 | XMS_ITS | Encounter Summary ---
Author Organization [facility] Address [address] [facility] [address] [place] [address] Phone Care Team Providers Care Director Semiconductor Name Role Phone Ry Soriano MD Primary Care Provider [phone] Encounter Details Date Type Department Care Team (Late Contact Info) Description 12/20/2018 Procedure Pass [facility] Periop [address] [place] [address] Social History Tobacco Use Types Packs/Day Years [...] AM EST Office Visit [facility] [address] [place] [address] Jany Trevino PA-C [address] [place] [address] 05/13/2025 11:40 AM EST Office Visit [facility] [address] [place] [address] Sushma Arias MD [address] [place] [address] [email or web address] documented as of this encounter Visit Diagnoses Not on filedocumented in this encounter Care Teams Director Semiconductor Relationship Specialty Start Date End Date Ry Soriano MD [address] [place] [address] [address] [place] [phone] PCP - General Internal Medicine 07/29/18 documented as of this encounter Additional Source Comments The information contained in this document represents components of the legal health record. It is not the complete legal health record.[facility]
--- OUTSIDE RECORDS SUMMARY | 2025-01-13 10:21 | XMS_ITS | Encounter Summary ---
Author Organization [facility] Address [address] [facility] [address] [place] [address] Phone Care Team Providers Care Army Officer Name Role Phone Ry Soriano MD Primary Care Provider [phone] Encounter Details Date Type Department Care Team (Late st Contact Info) Description 07/04/2021 Procedure Pass [facility] Periop [address] [place] [address] Social History Tobacco Use Types Packs/Day Years [...] 07/06/2021 9:00 AM Bibiana Xiong, RN * Davidson Suicide Severity Rating Scale (Screener/Recent Self-Report) Question [...] AM EST Office Visit [facility] [address] [place] [address] Jany Trevino PA-C [address] [place] [address] 05/13/2025 11:40 AM EST Office Visit [facility] [address] [place] [address] Sushma Arias MD [address] [place] [address] documented as of this encounter Visit Diagnoses Not on filedocumented in this encounter Care Teams Army Officer Relationship Specialty Start Date End Date Ry Soriano MD [address] [facility] [address] [place] [phone] PCP - General Internal Medicine 07/29/18 documented as of this encounter Additional Source Comments The information contained in this document represents components of the legal health record. It is not the complete legal health record.[facility]
--- OUTSIDE RECORDS SUMMARY | 2025-01-13 10:22 | XMS_ITS | Clinical Summary ---
Author Organization [facility] Address [address] [facility] [address] [place] [address] Phone Care Team Providers Care Business Office Technology Instructor Name Role Phone Ry Soriano MD Primary Care Provider [phone] Allergies No known active allergies Medications atorvastatin [...] (03/14/2024 10:30 AM EST): Good control by [email or web address] G7 download with average glucose 148, GMI [...] Rx on extra-depth orthopedic shoes by new warp doffer Dr. Vilchis recently. -Labs today -Adjust Lantus [...] her methimazole. Had blood work done at [facility] will get results to determine if [...] today - Routine follow-up scheduled with her warp doffer next week - Follow-up with Roxanna on [...] her glucose levels. Up to date with [facility], scheduled to see at the end of [...] her glucose levels. Up to date with [facility]. Scheduled to see podiatry. Labs were done at [facility] will call for results Assessment & [...] her glucose levels. Up to date with [facility] Labs ordered today Assessment & Plan (02/16/2023 10:04 AM EST): Control is reasonable based upon the patient's SMBG readings. No frequent hypoglycemia. She recently has had a couple episodes of severe hypoglycemia based upon the definition of less than 54. She is not sure what caused the lows, she corrected with orange juice and was fine. She hasn't received her dexcom supplies from [employer] yet. The office called today to see [...] her glucose levels. Up to date with [facility] Labs ordered today Assessment & Plan (11/13/2022 [...] her glucose levels. Up to date with [facility] Labs ordered today Assessment & Plan (08/07/2022 4:45 PM EDT): Reasonable control by SMBG. Last A1c is not available. Waiting for old records from [facility]. Taking 27 units of Lantus at bedtime and NovoLog by sliding scale between 8 to 36 units 3 times a day before meals. She is also on 1000 mg metformin twice a day. Patient was using the kisha 2 CGM, her prescription was canceled by [facility] because of not getting supporting medical records. No frequent or severe hypoglycemia. I asked patient to call [facility] for prescription on Kisha 2 to be [...] Team Description 12/09/2024 Orders Only [facility] [address] [place] [address] [place] [address] Sushma Arias MD Type 2 diabetes mellitus with proteinuria (Primary Dx); Toxic thyroid nodule; Hyperparathyroidism 11/05/2024 12:26 PM EDT - 11/05/2024 11:59 PM EDT Hospital Encounter [facility] [address] [place] [address] [place] [address] Sushma Arias MD Discharge Disposition: Home or Self Care 11/05/2024 11:20 AM EDT Office Visit [facility] [address] [place] [address] [place] [address] Sushma Arias MD Type 2 diabetes mellitus with diabetic peripheral angiopathy without gangrene, with long-term current use of insulin (Primary Dx); Toxic thyroid nodule; Type 2 diabetes mellitus with proteinuria; Vitamin B12 deficiency; Hypercalcemia 10/25/2024 Refill [facility] [address] [place] [address] [place] [address] Sushma Arias MD Medication Refill from Last [...] AM EST Office Visit [facility] [address] [place] [address] Jany Trevino PA-C [address] [place] [address] 05/13/2025 11:40 AM EST Office Visit [facility] [address] [place] [address] Sushma Arias MD [address] [place] [address] [address] [place] [address] [email or web address] Health Maintenance Due Date Last Done Comments [...] this topic Medical Devices Implanted Type Area Cobbler Mckay Device Identifier Shelf Expiration Date Model / Serial / Lot Knee Wedge Size 3 Plate Bone Tibial Stemmed Nexgen Precoat 03c Cs/1bx/1ea - [id number] Implanted:Qty: 1 on 12/20/2018 by Binu Oliver MD at [facility] NODATA Left: Knee MANJEET / DIV OF [employer] 06/30/2028 [id number] / / Knee Stem 145mm 100 Od 14 Small Appliance Assembly Supervisor Tivanium Tibial Solid Screw Primary Straight Impl Nexgen - [id number] Implanted:Qty: 1 on 12/20/2018 by Binu Oliver MD at [facility] STANDARD Left: Knee MANJEET / DIV OF [employer] 05/30/2028 [id number] / / [id number] Knee Implant 3 4 12mm Size Cd 3to4 Femoral Articular Surface Nexgen Lps Flex Fixed 05 - [id number] Implanted:Qty: 1 on 12/20/2018 by Binu Oliver MD at [facility] STANDARD Left: Knee MANJEET / DIV OF [employer] 07/30/2026 [id number] / / [id number] Block Augment 10mm 5448 03 27 Sz Tibial Nexgen Trabecular Metal Rt Lateral Lt Medial - [id number] Implanted:Qty: 1 on 12/20/2018 by Bniu Oliver MD at [facility] STANDARD Left: Knee MANJEET / DIV OF [employer] 07/01/2023 [id number] / / [id number] Block Augment 10.0mm Size 3 Tibial Nexgen Trabecular Metal Lt Lateral Rt Medial - [id number] Implanted:Qty: 1 on 12/20/2018 by Binu Oliver MD at [facility] STANDARD Left: Knee MANJEET / DIV OF [employer] 07/31/2023 [id number] / / [id number] Knee Implant 38x8.5mm Patella Nexgen All Poly Standard 06 - [id number] Implanted:Qty: 1 on 12/20/2018 by Binu Oliver MD at [facility] STANDARD Left: Knee MANJEET / DIV OF [employer] 05/30/2026 [id number] / / [id number] Block Augment 5mm Knee Femoral Nexgen Trabecular Metal Distal Size D 19 - [id number] Implanted:Qty: 1 on 12/20/2018 by Binu Oliver MD at [facility] STANDARD Left: Knee MANJEET / DIV OF [employer] ([employer]CT[employer]: [place]) 03/01/2022 [id number] / / [id number] Block Augment 5mm Knee Femoral Nexgen Trabecular Metal Distal Size D 19 - [id number] Implanted:Qty: 1 on 12/20/2018 by Binu Oliver MD at [facility] STANDARD Left: Knee [facility]JEET / [facility] 07/01/2023 [id number] / / [id number] Knee Implant Component Femoral Nexgen Complete Legacy Zimaloy Constrained Condylar Lt Size D Cs/1bx/1ea - [id number] Implanted:Qty: 1 on 12/20/2018 by Binu Oliver MD at [facility] STANDARD Left: Knee MANJEET / DIV OF [employer] 05/02/2028 [id number] / / [id number] Knee Stem 200mm 155 Od 13 Small Appliance Assembly Supervisor Tivanium Tibial Solid Screw Primary Straight Impl Nexgen - [id number] Implanted:Qty: 1 on 12/20/2018 by Binu Oliver MD at [facility] STANDARD Left: Knee MANJEET / DIV OF [employer] ([employer]CT[employer]: [place]) 11/30/2022 [id number] / / [id number] Knee Implant 12mm Size 3 Component Articular Surface Nexgen Uhmwpe Lcck Cd Bx/1ea - [id number] Implanted:Qty: 1 on 07/04/2021 by Binu Oliver MD at [facility] STANDARD Left: Knee MANJEET / DIV OF [employer] [id number] 05/31/2027 [id number] / / [id number] Left Tkr Cement Bone 40gr Pal[place]os R And G Gentamicin Radiopaque Deangelo/1ea - [id number] Implanted:Qty: 2 on 12/20/2018 by Binu Oliver MD at [facility] Left: Knee MANJEET / DIV OF [employer] 05/30/2021 [id number] / / [id number] Procedures Procedure Name Priority Date/Time Associated Diagnosis [...] not applicable or not reported. g/dL [facility]PATH [address] Zamarripaprotein GL Test component not applicable or not reported. g/dL [facility]PATH [address] DR Zamarripaprotein AK Test component not applicable or not reported. g/dL [facility]/PATH [address] DR M-protein AL Test component not applicable or not reported. g/dL [facility] M-protein MK Test component not applicable or not reported. g/dL [facility] M-protein ML Test component not applicable or not reported. g/dL [facility] DR Glycosylation Test component not applicable or not reported. [facility] Flag, M-protein Isotype Negative Negative [facility] QMPTS Interpretation No monoclonal protein detected. [facility] Comment: (NOTE) ADDITIONAL INFORMATION The submitted sample was assayed by five separate immunopurifications for IgG, IgA, IgM, kappa and lambda. The result reflects the findings of either no monoclonal protein detected or those monoclonal immunoglobulins that were detected. This test was developed and its performance characteristics determined by [facility] in a manner consistent with CLIA requirements. This test has not been cleared or approved by the U.S. Food and Drug Administration. IgA 473(H) 61 - 356 mg/dL [facility] DR IgM 102 37 - 286 mg/dL [facility] IgG 1,170 767 - 1,590 mg/dL [facility] Therapeutic Antibody Administered? No [facility] Comment:Corrected on 11/10 A T 1205: previously reported as NO Blood 11/05/2024 12:3 6 PM EDT 11/05/2024 12:46 PM EDT us Sushma Arias MD LAB BLOOD ORDERABLES Edited Re sult - Final [facility] [address] [place] [address] * Methylmalonic acid, serum (11/05/2024 12:36 PM EDT) METHYLMALONIC ACID 0.15 <=0.40 nmol/mL [facility] DPT OF LAB MED AND PAT+ Comment: (NOTE) ADDITIONAL INFORMATION This test was developed and its performance characteristics determined by [facility] in a manner consistent with CLIA requirements. This test has not been cleared or approved by the U.S. Food and Drug Administration. Blood 11/05/2024 12:3 6 PM EDT 11/05/2024 12:46 PM EDT Sushma Arias MD LAB BLOOD ORDERABLES Final Res ult [facility] DPT OF LAB MED AND PAT+ [address] [place] [address] * (ABNORMAL) Parathyroid hormone (PTH) (11/05/2024 12:36 PM EDT) PARATHYROID HORMONE 100(H) 15 - 65 pg/mL [facility] Blood 11/05/2024 12:3 6 PM EDT 11/05/2024 12:47 PM EDT Sushma Arias MD LAB BLOOD ORDERABLES Final Res ult [facility] [address] [place] [address] * (ABNORMAL) Comprehensive metabolic panel (11/05/2024 12:29 PM EDT) SODIUM 139 133 - 146 mmol/L [facility] POTASSIUM 3.5 3.3 - 5.1 mmol/L [facility] CHLORIDE 104 96 - 108 mmol/L [facility] CO2 21 21 - 35 mmol/L [facility] BUN 12 6 - 19 mg/dL [facility] CREATININE 1.10 0.5 - 1.5 mg/dL [facility] GLUCOSE 88 70 - 99 mg/dL [facility] ALBUMIN 4.0 3.9 - 4.8 g/dL [facility] TOTAL PROTEIN 7.6 6.5 - 8.0 g/dL [facility] CALCIUM 10.0 8.4 - 10.3 mg/dL [facility] ALKALINE PHOSPHATASE 114 39 - 117 U/L [facility] TOTAL BILIRUBIN 0.3 0.0 - 1.2 mg/dL [facility] AST 22 0 - 37 U/L [facility] ALT 8 0 - 40 U/L [facility] GLOBULIN 3.6 1 - 4.8 g/dL [facility] EGFR 51(L) >59 mL/min/1.7 3m2 [facility] Comment:Estimated glomerular filtration rate calculated using the CKD-EPI refit equation. ANION GAP 18 10 - 20 mmol/L [facility] Blood 11/05/2024 12:2 9 PM EDT 11/05/2024 12:45 PM EDT us Sushma Arias MD LAB BLOOD ORDERABLES Final Res ult Performing Organization Address City/[facility]/ZIP Co de Phone Number [address] [address] * 25-OH vitamin D (11/05/2024 12:29 PM EDT) 25 OH VIT D (TOTAL) 43 30 - 60 ng/mL [facility] Blood 11/05/2024 12:2 9 PM EDT 11/05/2024 12:45 PM EDT us Sushma Arias MD LAB BLOOD ORDERABLES Final Res ult [address] [address] * (ABNORMAL) CBC and differential (11/05/2024 12:29 PM EDT) WBC 10.33 4.00 - 11.00 K/uL [facility] RBC 3.60(L) 4.00 - 5.20 M/uL [facility] HGB 9.1(L) 12.0 - 16.0 g/dL [facility] HCT 31.6(L) 36.0 - 46.0 % [facility] PLT 359 150 - 450 K/uL [facility] MCV 87.8 80.0 - 100.0 fL [facility] MCH 25.3(L) 27.0 - 31.0 pg [facility] MCHC 28.8(L) 32.0 - 36.0 g/dL [facility] RDW 17.2(H) 11.5 - 14.5 % [facility] MPV 11.8 8.4 - 12.0 fL [facility] NRBC 0.00 0.00 /100 WBCs [facility] ABSOLUTE NRBC 0.00 0.00 K/uL [facility] DIFF METHOD Auto [facility] NEUTS 65.6 48.0 - 76.0 % [facility] LYMPHS 26.4 18.0 - 41.0 % [facility] MONOS 4.6 4.0 - 11.0 % [facility] EOS 2.6 0.0 - 5.0 % [facility] BASOS 0.4 0.0 - 1.5 % [facility] Granulocytes, immature (%) 0.4 0.0 - 0.9 % [facility] ABSOLUTE NEUTS 6.77 1.92 - 7.60 K/uL [facility] ABSOLUTE LYMPHS 2.73 0.72 - 4.10 K/uL [facility] ABSOLUTE MONOS 0.48 0.16 - 1.10 K/uL [facility] ABSOLUTE EOS 0.27 0.00 - 0.50 K/uL [facility] ABSOLUTE BASOS 0.04 0.00 - 0.15 K/uL [facility] Granulocytes, immature 0.04 0.00 - 0.09 K/uL [facility] Blood 11/05/2024 12:2 9 PM EDT 11/05/2024 12:45 PM EDT us Sushma Arias MD LAB BLOOD ORDERABLES Final Res ult [facility] [address] [place] [address] * Free T3 (11/05/2024 12:29 PM EDT) FREE T3 2.7 2.0 - 4.4 pg/mL [facility] Blood 11/05/2024 12:2 9 PM EDT 11/05/2024 12:45 PM EDT Sushma Arias MD LAB BLOOD ORDERABLES Final Res ult Performing Organization Address City/[facility]/ZIP Co de Phone Number [address] [address] * TSH (11/05/2024 12:29 PM EDT) TSH 1.07 0.27 - 4.20 uIU/mL [facility] Blood 11/05/2024 12:2 9 PM EDT 11/05/2024 12:45 PM EDT Sushma Arias MD LAB BLOOD ORDERABLES Final Res ult Performing Organization Address [facility] Co de Phone Number [address] [address] * (ABNORMAL) Free T4 (11/05/2024 12:29 PM EDT) FREE T4 0.8(L) 0.9 - 1.7 ng/dL [facility] Blood 11/05/2024 12:2 9 PM EDT 11/05/2024 12:45 PM EDT Sushma Arias MD LAB BLOOD ORDERABLES Final Res ult Performing Organization Address City/[facility]/ZIP Co de Phone Number [address] [address] * Phosphorus (11/05/2024 12:29 PM EDT) PHOSPHORUS 3.5 2.7 - 4.5 mg/dL [facility] Blood 11/05/2024 12:2 9 PM EDT 11/05/2024 12:45 PM EDT us Sushma Arias MD LAB BLOOD ORDERABLES Final Res ult [address] [address] * Vitamin B12 (11/05/2024 12:29 PM EDT) VITAMIN B12 1,131 232 - 1,245 pg/mL [facility] Blood 11/05/2024 12:2 9 PM EDT 11/05/2024 12:45 PM EDT us Sushma Arias MD LAB BLOOD ORDERABLES Final Res ult Performing Organization Address [facility]/ZIP Co de Phone Number [address] [address] * (ABNORMAL) Hemoglobin A1c (06/10/2024 10:06 AM EDT) HEMOGLOBIN A1C 7.2(H) 4.3 - 5.8 % [facility] Blood 06/10/2024 10:0 6 AM EDT 06/10/2024 10:14 AM EDT Jany Trevino PA-C LAB BLOOD ORDERABL ES Final Result Performing Organization Address [facility]/ZIP Co de Phone Number [address] [address] from Last 3 Months or Most Recently Relevant to Health Maintenance [facility] MEDICARE REPLACEMENT [facility] MEDICARE REPLACEMENT [facility] MEDICARE REPLACEMENT [facility] MEDICARE REPLACEMENT [facility] MEDICARE REPLACEMENT [address] [facility] [facility] MEDICARE REPLACEMENT [facility] MEDICARE REPLACEMENT [facility] MEDICARE REPLACEMENT Advance Directives For more information, please contact: [phone] (9AM - 5PM [facility], Sunday-Sunday) Documents on File Type Date Recorded Patient Log Stacker Operator Expl anation Healthcare Proxy 12/18/2018 HEALTH CARE [...] File Name Relationship [facility] Gretchen Crowley Daughter .Primary Health Care Agent (Proxy form on file) Care Teams Business Office Technology Instructor Relationship Specialty Start Date End Date Ry Soriano MD [address] [place] [address] PCP - General Internal Medicine 07/29/18 Additional Source Comments The information contained in this document represents components of the legal health record. It is not the complete legal health record.[facility]
--- OUTSIDE RECORDS SUMMARY | 2025-01-13 10:22 | XMS_ITS | Patient Health Record ---
Author Organization [facility] Address [address] [place] [address] Care Team Providers Care Insurance Assistant Name Role Phone Ry Soriano Primary Care Provider Clive Cardoso Unavailable [phone] Allergies Allergen (clinical drug ingredient) Drug/Non Drug [...] Problem Acquired hammer toe of right foot (1902545184303 105) Other hammer toe(s) (acquired), right foot (M20.41) Active confirmed Problem Type 2 diabetes mellitus with peripheral angiopathy (309343028) Type 2 diabetes mellitus with diabetic peripheral angiopathy without gangrene (E11.51) Active confirmed Q7(A), Q8(2B), Q9(1B,2C) Problem Acquired hammer toe of left foot (9556348972837 103) Other hammer toe(s) (acquired), left foot (M20.42) Active confirmed Problem Plantar wart (81941023) Plantar wart (B07.0) Active confirmed Vital Signs Blood pressure diastolic 64 mm Hg 11/17/2024 Height 5ft 5in in 11/17/2024 Blood pressure systolic 131 mm Hg 11/17/2024 Weight 194 lbs 11/17/2024 BMI 32.28 kg/m2 11/17/2024 Procedures Procedure Date Ordered Date Performed Result Body Sit e 61987-ELICGBC NAIL, 6 OR MORE 03/05/2024 N/A 92135-Ltgf Destruction, 1-14 03/05/2024 N/A 28431-VRMF SKIN LESIONS, OVER 4 03/05/2024 N/A 95537-CXQYAKS NAIL, 6 OR MORE 06/02/2024 N/A 52141-Qvbz Destruction, 1-14 06/02/2024 N/A 10869-UXEL SKIN LESIONS, OVER 4 06/02/2024 N/A 99597-SCQLTPQ NAIL, 6 OR MORE 11/17/2024 N/A 73901-Lwex Destruction, 1-14 11/17/2024 N/A 05519-ZPNX SKIN LESIONS, OVER 4 11/17/2024 N/A Encounters Encounter Location Date Provider Diagnosis [address] [address] 03/05/2024 Clive Vilchis Type 2 diabetes mellitus with diabetic peripheral angiopathy without gangrene E11.51 ; Plantar wart B07.0 ; Tinea unguium B35.1 ; Pain in right toe(s) M79.674 ; Pain in left toe(s) M79.675 ; Right foot pain M79.671 ; Other hammer toe(s) (acquired), right foot M20.41 and Other hammer toe(s) (acquired), left foot M20.[address] [address] 06/02/2024 Clive Vilchis Type 2 diabetes mellitus with diabetic peripheral angiopathy without gangrene E11.51 ; Plantar wart B07.0 ; Tinea unguium B35.1 ; Pain in right toe(s) M79.674 ; Pain in left toe(s) M79.675 ; Right foot pain M79.671 and Tinea pedis of both feet B35.[address] [address] 11/17/2024 Clive Vilchis Type 2 diabetes mellitus with diabetic peripheral angiopathy without gangrene E11.51 ; Plantar wart B07.0 ; Tinea unguium B35.1 ; Pain in right toe(s) M79.674 ; Pain in left toe(s) M79.675 ; Right foot pain M79.671 and Tinea pedis of both feet B35.3 [facility] [address] [address] 08/21/2024 Clive Vilchis Assessments Encounter Date Diagnosis [...] Treatment Pending Test Test Name Order Date 06955-CUZDSFB NAIL, 6 OR MORE 03/05/2024 04932-NIIKRJP NAIL, 6 OR MORE 06/02/2024 48426-SEHUXZZ NAIL, 6 OR MORE 11/17/2024 54314-Lwip Destruction, 1-14 11/17/2024 94879-Feld Destruction, 1-14 06/02/2024 13425-Lkpm Destruction, 1-14 03/05/2024 90537-HYJO SKIN LESIONS, OVER 4 03/05/20 24 64629-IKMP SKIN LESIONS, OVER 4 06/03/19 25 80157-MKQM SKIN LESIONS, OVER 4 11/18/19 25 86403-TYAQ SKIN LESIONS, 2 TO 4 06/15/19 24 60299-QFNI SKIN LESIONS, 2 TO 4 09/14/19 24 Next Appt Details Provider Name:Clive Vilchis , 03/02/2025 09:45:00 AM, [address] [facility], [address], [place], [address], Insurance Providers Payer Name Payer Address Payer Phone Subscriber Number Group Number Insured Name Patient Relationship to Insured Coverage Start Date Coverage End Date [facility] [employer] Claims [address] [place] [address] [id number] Lauren Crowley Self - patient is the insured Medical (General) History Medical History History ICD Code Arthritis Back,Hip,and Knee pain Cataracts covid-19 Diabetic High blood pressure Reflux ( GERD) Chicken pox Hypercholesterolemia Surgical History Surgery Date(Month/Year) triple bypass 2020 knee replacement hysterectomy 2022
[2025-01-13 13:54] LABS: Blood Urea Nitrogen 13 mg/dL (9-16); Estimated Glomerular Filt Rate 44
== END 2025-01-13 09:25 | disposition home or self-care (01) ==
LOC: HO.HMGCLDS 09:24
PROVIDERS: PCP Internal Medicine; Visit Provider Radiology Vascular & Interventional Radiology
DX: R79.89 Other specified abnormal findings of blood chemistry (principal); R94.4 Abnormal results of kidney function studies
CPT/HCPCS: 36415; 82565; 84520

== ENCOUNTER 2025-02-06 07:58 | Outpatient (AMB) | payer OTHER, SELFPAY ==
--- OUTSIDE RECORDS SUMMARY | 2024-08-21 05:45 | XMS_ITS ---
Author Organization [facility] Address [address] [place] [address] Care Team Providers Care Termite Control Servicer Name Role Phone Ry Soriano Primary Care Provider Unavailabl Clive Green Unavailable [phone] Encounters Encounter Location Date Provider [facility] [address] [address] 08/21/2024 Clive Vilchis Plan Of Treatment Next Appt Details Provider Name:Clive Vilchis , 03/02/2025 09:45:00 AM, [address] [place] [address], [address], Progress Notes * BALBINA Lauren BDOB:1945 ( 79 yo F)Acc No.[id number]:08/21/2024 Progress Note Patient: Lauren CHRISTIANSON Provider: Gus Vilchis DPM :1945 A ge:79 Y S ex:Female Date:08/21/2024 Address:[address] [place] [address] [address]ala [facility] Pcp:Ry Soirano Subjective: * Chief Complaints: * * Medical History: Objective: * Vitals: Assessment: Plan: * Treatment: * Images: * The named appointment provid er may or may not be the originator of this progress note, and it is not deemed complete until electronically signed by the appointment provider. Sign off status: Pending * Provider: Gus Vilchis DPM Date: 0 08/21/2024 Generated for Ollie lea/Sybil on: 1 04/08/2024 08:02 AM EST
--- OUTSIDE RECORDS SUMMARY | 2025-02-06 08:02 | XMS_ITS | Patient Health Record ---
Author Organization [facility] Address [address] [address] Care Team Providers Care Dispatcher Automobile Rental Name Role Phone Ry Soriano Primary Care Provider Clive Cardoso Unavailable [phone] Allergies Allergen (clinical drug ingredient) Drug/Non Drug Allergy documented on EMR Reaction Allergy Type Onset Date Status Adhesive per pt no allergy Allergy Active Results Component Value Reference Range Notes HEMOGLOBIN A1C (GLYCOHEMOGLO BIN) Reviewed date:11/17/2024 09:18:24 [...] Problem Acquired hammer toe of right foot (9333598364278 105) Other hammer toe(s) (acquired), right foot (M20.41) Active confirmed Problem Type 2 diabetes mellitus with peripheral angiopathy (772195945) Type 2 diabetes mellitus with diabetic peripheral angiopathy without gangrene (E11.51) Active confirmed Q7(A), Q8(2B), Q9(1B,2C) Problem Acquired hammer toe of left foot (9591752192421 103) Other hammer toe(s) (acquired), left foot (M20.42) Active confirmed Problem Plantar wart (78730290) Plantar wart (B07.0) Active confirmed Vital Signs Blood pressure diastolic 64 mm Hg 11/17/2024 Height 5ft 5in in 11/17/2024 Blood pressure systolic 131 mm Hg 11/17/2024 Weight 194 lbs 11/17/2024 BMI 32.28 kg/m2 11/17/2024 Procedures Procedure Date Ordered Date Performed Result Body Sit e 55732-FBSELAZ NAIL, 6 OR MORE 03/05/2024 N/A 83096-Kppk Destruction, 1-14 03/05/2024 N/A 34720-OBSB SKIN LESIONS, OVER 4 03/05/2024 N/A 95999-ATMXRNC NAIL, 6 OR MORE 06/02/2024 N/A 96220-Zukv Destruction, 1-14 06/02/2024 N/A 79630-HVGK SKIN LESIONS, OVER 4 06/02/2024 N/A 14199-RONTZCA NAIL, 6 OR MORE 11/17/2024 N/A 07550-Qfpr Destruction, 1-14 11/17/2024 N/A 94320-IWJO SKIN LESIONS, OVER 4 11/17/2024 N/A Encounters Encounter Location Date Provider Diagnosis [facility] [address] [place] [address] 03/05/2024 Clive Deng Type 2 diabetes mellitus with diabetic peripheral angiopathy without gangrene E11.51 ; Plantar wart B07.0 ; Tinea unguium B35.1 ; Pain in right toe(s) M79.674 ; Pain in left toe(s) M79.675 ; Right foot pain M79.671 ; Other hammer toe(s) (acquired), right foot M20.41 and Other hammer toe(s) (acquired), left foot M20.[address] [address] 06/02/2024 Clive Vilchis Type 2 diabetes mellitus with diabetic peripheral angiopathy without gangrene E11.51 ; Plantar wart B07.0 ; Tinea unguium B35.1 ; Pain in right toe(s) M79.674 ; Pain in left toe(s) M79.675 ; Right foot pain M79.671 and Tinea pedis of both feet B35.[address] [address] 11/17/2024 Cliveirma Vilchis Type 2 diabetes mellitus with diabetic peripheral angiopathy without gangrene E11.51 ; Plantar wart B07.0 ; Tinea unguium B35.1 ; Pain in right toe(s) M79.674 ; Pain in left toe(s) M79.675 ; Right foot pain M79.671 and Tinea pedis of both feet B35.3 [facility] [address] [address] 08/21/2024 Clive Vilchis Assessments Encounter Date Diagnosis [...] Treatment Pending Test Test Name Order Date 31812-FXYLXXI NAIL, 6 OR MORE 03/05/2024 85073-RLEDFHH NAIL, 6 OR MORE 06/02/2024 35443-JJFCOMN NAIL, 6 OR MORE 11/17/2024 69171-Qebj Destruction, 1-14 11/17/2024 10697-Lidq Destruction, 1-14 06/02/2024 41215-Exlp Destruction, 1-14 03/05/2024 53478-APZI SKIN LESIONS, OVER 4 03/05/20 24 85956-JTQF SKIN LESIONS, OVER 4 06/03/19 25 71448-TGGG SKIN LESIONS, OVER 4 11/18/19 25 57563-ACEJ SKIN LESIONS, 2 TO 4 06/15/19 24 33414-YKMZ SKIN LESIONS, 2 TO 4 09/14/19 24 Next Appt Details Provider Name:Clive Vilchis , 03/02/2025 09:45:00 AM, [address] [facility], [address], [place], [address], Insurance Providers Payer Name Payer Address Payer Phone Subscriber Number Group Number Insured Name Patient Relationship to Insured Coverage Start Date Coverage End Date [facility] [employer] Claims [address] [place] [address] [id number] Lauren Crowley Self - patient is the insured Medical (General) History Medical History History ICD Code Arthritis Back,Hip,and Knee pain Cataracts covid-19 Diabetic High blood pressure Reflux ( GERD) Chicken pox Hypercholesterolemia Surgical History Surgery Date(Month/Year) triple bypass 2020 knee replacement hysterectomy 2022
--- OUTSIDE RECORDS SUMMARY | 2025-02-06 08:02 | XMS_ITS | Encounter Summary ---
Author Organization [facility] Address [address] [facility] [address] [place] [address] Phone Care Team Providers Care Patient Registration Manager Name Role Phone Ry Soriano MD Primary Care Provider [phone] Encounter Details Date Type Department Care Team (Late st Contact Info) Description 07/04/2021 Procedure Pass [facility] Periop [address] [place] [address] Social History Tobacco Use Types Packs/Day Years [...] 07/06/2021 9:00 AM Bibiana Xiong, RN * [place] Suicide Severity Rating Scale (Screener/Recent Self-Report) Question [...] Care Team (Late st Contact Info) Description 05/13/2025 11:40 AM EST Office Visit [facility] [address] [place] [address] Sushma Arias MD [address] [place] [address] [email or web address] documented as of this encounter Visit Diagnoses Not on filedocumented in this encounter Care Teams Patient Registration Manager Relationship Specialty Start Date End Date Po, Ry Horan MD [address] [facility] [address] [place] [phone] PCP - General Internal Medicine 07/29/18 documented as of this encounter Additional Source Comments The information contained in this document represents components of the legal health record. It is not the complete legal health record.[facility]
--- OUTSIDE RECORDS SUMMARY | 2025-02-06 08:02 | XMS_ITS | Encounter Summary ---
Author Organization [facility] Address [address] [place] [address] Phone Care Team Providers Care Admissions Manager Rn Name Role Phone Ry Soriano MD Primary Care Provider [phone] Encounter Details Date Type Department Care Team (Late Contact Info) Description 07/07/2021 Anti-coag visit VIRTUAL DEPARTMENT Unknown, Unknown, MD Social History Tobacco Use Types Packs/Day Years [...] Department Care Team (Late Contact Info) Description 05/13/2025 11:40 AM EST Office Visit [facility] [address] [place] [address] Sushma Arias MD [address] [place] [address] documented as of this encounter Visit Diagnoses Not on filedocumented in this encounter Care Teams Admissions Manager Rn Relationship Specialty Start Date End Date Ry Soriano MD [address] [place] [address] PCP - General Internal Medicine 07/29/18 documented as of this encounter Additional Source Comments The information contained in this document represents components of the legal health record. It is not the complete legal health record.[facility]
--- OUTSIDE RECORDS SUMMARY | 2025-02-06 08:02 | XMS_ITS | Encounter Summary ---
Author Organization [facility] Address [address] [place] [address] Phone Care Team Providers Care Leak Detection Engineer Name Role Phone Ry Soriano MD Primary Care Provider [phone] Encounter Details Date Type Department Care Team (Late Contact Info) Description 12/20/2018 Procedure Pass [facility] Periop [address] [place] [address] Social History Tobacco Use Types Packs/Day Years [...] 11:40 AM EST Office Visit [facility] [address] [place] [address] [place] [address] Sushma Arias MD [address] [place] [address] documented as of this encounter Visit Diagnoses Not on filedocumented in this encounter Care Teams Leak Detection Engineer Relationship Specialty Start Date End Date Ry Soriano MD [address] [place] [address] PCP - General Internal Medicine 07/29/18 documented as of this encounter Additional Source Comments The information contained in this document represents components of the legal health record. It is not the complete legal health record.[facility]
--- OUTSIDE RECORDS SUMMARY | 2025-02-06 08:02 | XMS_ITS | Data Portability ---
Author Organization [facility] Address [address] [place] [address] Care Team Providers Care Senior Game Designer Name Role Phone HIM CCA OTHER Assessment [...] BMP, serum or plasma 2023 [facility], [address] [place] [address], [phone] 19:24:42 Referral None recorded. Procedures None recorded. Surgeries None recorded. Imaging None recorded. Medication Orders potassium chloride ER 20 mEq tablet,ext ended release(pa rt/cryst) 2023 024 [facility] Not available 15:48:42 Patient TargetsNo targets [...] Updated DateTime 3 18 /min 86 /min 49157.4 g 98.2 [degF] 95 % 95 % 151/81 mm[Hg] Not Available paymioEDNow - production 3 15:59:17 Date Recorded Heart rate Respiratory rate Body temperature Oxygen saturation Oxygen saturation in Arterial blood by Pulse oximetry Systolic And Diastolic Provider Name and Address Organization Details Last Updated DateTime 2 68 /min 16 /min 97.2 [degF] 96 % 96 % 177/86 mm[Hg] Not Available Direct Access SoftwareNoCore Dynamics - Grid2020 2 10:45:26 Date Recorded Respiratory rate Heart rate Oxygen saturation Oxygen saturation in Arterial blood by Pulse oximetry Systolic And Diastolic Provider Name and Address Organization Details Last Updated DateTime 4 18 /min 80 /min 97 % 97 % 170/72 mm[Hg] Not Available Direct Access SoftwareNonap- Naturally Attached Parents 4 15:26:48 Social History None recorded. Functional Status None recorded. Mental Status None recorded. Family History Nothing Reported. Medical History No medical history recorded. Gynecological HistoryNo gynecological history recorded. Obstetrics History GPAL:G 0 P 0 0 0 0 Past Encounters Encounter ID Performer Location Encounter Start Date Encounter Closed Date Diagnosis/Indication Diagnosis SNOMED-CT Code Diagnosis ICD10 Code Diagnosis IMO Codes Diagnosis Note [id number] Cher Aldrich MD [facility] - [address] [address] 11/15/2021 10:44:55 12/23/2021 12:50:11 Essential hypertension 84864045 I10 [id number] Binu Miller MD Main - [address] [address] 09/14/2022 15:59:15 09/15/2022 10:12:45 Cough 78455631 R05.9 [id number] Susan Taylor MD Main - [address] [address] 12/29/2023 15:26:46 12/31/2023 08:42:03 Hyperglycemia 45680054 R73.9 Health Concerns Section Related Observation LastModified by Organization Detai ls LastModified Time None Recorded Concern Status LastModified by Organization Details LastModified Time None Recorded Advance Directives Directive None Recorded Payers Insurance Date Sequence Insurance Name Policy Number Policy Dillard Covered Member ID Dillard Member ID Guarantor Name 09/14/[address] [facility] - DOS PRIOR TO 2022 - DUAL ELIGIBLE (MEDICARE REPLACEMENT/ADV ANTAGE - HMO) Lauren Crowley [id number] Lauren Crowley 12/29/[address] [facility] - DOS ON OR AFTER 2022 - DUAL ELIGIBLE - PRISON OPTIONS AND ONE CARE (MEDICARE REPLACEMENT/ADV ANTAGE - HMO) Lauren Crowley [id number] Lauren Crowley Notes Date Note Type Note [...] Hypertension Allergies: Unknown Comments: Requestor is a Molding Machine Tender, call placed to her, no answer, VM [...] visit for tomorrow. Red flags discussed, also TEACHING FELLOW(daughter) lives with member and will be there all night. Cher Aldrich MD [address], [place], [address], [facility] 11/15/2021 11:11:16 09/14/2022 text/html CRC Nursing Assessment: [...] Verify member name/- Binu Miller MD [address] [facility],[address], [place], [address], [employer] 09/14/2022 16:01:50 12/29/2023 text/html HPI: Second outreach call to Mbr at number [phone] and spoke with Dgtr Aileen and Mbr. [...] No further information needed to process visit. Supervisor Steel Division Organization Information for Richard Gutiérrez Business Legal Name: [employer]. Address: [address] [place] [address], Development Chemist: Garrick Pate MD CLIA No.: [id number] Supervisor Steel Division POC Test Results from Richard Gutiérrez iSTAT Chem8+ (15:36:49) Na: 137 mEq/L K: 3.8 mEq/L Cl: 105 mEq/L iCa: 1.32 mmol/L TCO2: 19 mmol/L Glu: 362 mg/dL BUN: 18 mg/dL Crea: 1.1 mg/dL Hct: 38 % Hb: 12.9 g/dL A ................... ................... ................... ................... ................... ................... ................... ........ Supervisor [employer] Note From Richard Gutiérrez: Pt visit for [...] Pt blood sugar 360. VS as noted. [facility] contacted who asks for blood labs. Labs obtained, uploaded, [facility] contacted again. [facility] requests Pt take 10 units insulin, and SC administer 40 mg potassium PO. Orders followed as noted. PT advised to call 911 should her symptoms worsen, Pt agrees to all [facility] orders, scene cleared. ................... ................... ................... ................... ................... ................... ................... ........ Disposition: Fulfilled Susan Taylor MD [address] [facility],[address], [place], [address], [email or web address] 12/29/2023 17:19:48 OBGyn Episode No OBEpisode recorded.
--- OUTSIDE RECORDS SUMMARY | 2025-02-06 08:02 | XMS_ITS | Encounter Summary ---
Author Organization [facility] Address [address] [place] [address] Phone Care Team Providers Care Parachute Line Tier Name Role Phone Ry Soriano MD Primary Care Provider Reason for Referral * - Closed Specialty Diagnoses / Procedures Referred By Contholly t Referred To Contact Procedures NM Bone Outside (No Interpretation) Binu Oliver MD Phone: tel: fax: [email or web address] Referral ID Status Reason Start Date Expiration Date Visits Re quested Visits Authorized [id number] Closed 08/16/2018 08/16/2019 1 1 Encounter Details Date Type Department Care Team (Late st Contact Info) Description 08/16/2018 Transcribe Orders [facility] [address] [place] [address] Pierre Contreras [address] [place] [address] [email or web address] Social History Tobacco Use Types Packs/Day Years [...] 11:40 AM EST Office Visit [facility] [address] [place] [address] [place] [address] Sushma Arias MD [address] [place] [address] [address] [place] [address] [email or web address] documented as of this encounter Results * [...] INTE RPRETATION Final Result Performing Organization Address [facility] Co de Phone Number [facility] * XR Lower Extremity Outside (No Interpretation) (08/16/2018 10:32 AM EDT) Narrative [facility] - 08/16/2018 10:32 AM EDT This study is for PACS storage only and not for interpretation. us Binu Oliver MD IMG OUTSIDE IMAGING W/OUT INTE RPRETATION Final Result Performing Organization Address City/[facility]/ZIP Co de Phone Number [facility] * NM Bone Outside (No Interpretation) (08/16/2018 10:32 AM EDT) Narrative [facility] - 08/16/2018 10:32 AM EDT This study is for PACS storage only and not for interpretation. us Binu Oliver MD IMG OUTSIDE IMAGING W/OUT INTE RPRETATION Final Result [facility] documented in this encounter Visit Diagnoses Not on filedocumented in this encounter Care Teams Parachute Line Tier Relationship Specialty Start Date End Date Ry Soriano MD [address] [place] [address] PCP - General Internal Medicine 07/29/18 documented as of this encounter Additional Source Comments The information contained in this document represents components of the legal health record. It is not the complete legal health record.[facility]
--- OUTSIDE RECORDS SUMMARY | 2025-02-06 08:02 | XMS_ITS | Encounter Summary ---
Author Organization [facility] Address [address] [place] [address] [place] [address] Phone Care Team Providers Care Production Planning Supervisor Name Role Phone Ry Soriano MD Primary Care Provider [phone] Encounter Details Date Type Department Care Team (Late Contact Info) Description 12/20/2018 Procedure Pass [facility] [address] [place] [address] Social History Tobacco Use Types Packs/Day Years [...] 11:40 AM EST Office Visit [facility] [address] [place] [address] [place] [address] Sushma Arias MD [address] [place] [address] documented as of this encounter Visit Diagnoses Not on filedocumented in this encounter Care Teams Production Planning Supervisor Relationship Specialty Start Date End Date Ry Soriano MD [address] [place] [address] PCP - General Internal Medicine 07/29/18 documented as of this encounter Additional Source Comments The information contained in this document represents components of the legal health record. It is not the complete legal health record.[facility]
[2025-02-06 08:03] VITALS: BP 146/72; PULSE 90; TEMP 36.3; O2SAT 93; BMI 31.9
--- NOTE | 2025-02-06 08:03 | A.OFFPC_ITS ---
Vital Signs 02/06/25 08:03 Height 5 ft 4 in Weight 186 lb 2 oz BMI 31.9 BP 146/72 H Blood Pressure Location Lt brachial Position Sitting Pulse 90 Pulse Source Pulse Oximeter Temp 97.3 F Temp Source Temporal Artery Scan Pulse Oximetry (%) 93 Oxygen Delivery Method Room Air Intake Visit Reasons: [facility] 02/03 chest pain Accompanied by: Sister Allergies No Known Allergies (No Known Allergies*) Allergy (Verified 02/06/25 08:06) Tobacco use date assessed: 02/06/25 Fall risk assessment: No Falls in past year Last assessed Fall Risk: 02/06/25 Dental Screening Dental Screen Date: 02/06/25 Did you have a dental visit in the last 12 months?: Yes Did you have a dental problem in the last 6 months where you did not have access to dental care?: No Was dental information given to patient?: Patient has dentist HPI HPI Comments History of Present Illness Details 79-year-old female presents to the [facility] for F follow-up. Past Medical History: CABG, CAD, anemia, type 2 diabetes mellitus, hypertension, hyperlipidemia, GERD Patient was recently hospitalized [place] [facility] [place] for evaluation of chest pain occurring a few hours after colonoscopy. She reports black/dark stools for approximately one month prior to admission. Denies current chest pain, dyspnea, or dizziness. Hospital Course: -Initial EKG: concerning for STEMI with ST depression; subsequent EKG normal. -POCUS: normal. -Laboratory: acute blood loss anemia (Hg b 6.8); received blood transfusions. -Colonoscopy (01/30): melena throughout colon, suggestive of proximal source. Known history: duodenal AVM and GERD. Medications: Lisinopril discontinued due to LARISSA; started on Labetalol for hypertension. [facility], [facility] Medical History (Updated 02/06/25 @ 08:37 by Elisabeth Early NP) Chest pain GI bleed Pulmonary edema COVID-19 virus infection Obesity (BMI 30-39.9) Diabetic nephropathy Essential hypertension Lab test positive for detection of COVID-19 virus Toxic multinodular goiter Tubular adenoma of colon Coronary artery disease Hypercholesterolemia Type 2 diabetes mellitus with hyperglycemia Surgical History Hx of colonoscopy Status post coronary artery bypass graft History of coronary artery bypass graft x 3 (~09/17/19) History of cardiac catheterization (~09/16/19) History of total left knee replacement H/O umbilical hernia repair S/P lumpectomy, left breast Family History Father No problems noted. Mother No problems noted. Social History Housing: Apartment Alcohol intake: current Alcohol intake frequency: holidays/special occasions only Comment: beer Patient Tobacco Use Status: Former Tobacco user Tobacco use type: Cigarette Years Smoked: 1999 quit e-Cigarette/Vaping Use: Never Used Second Hand Smoke Exposure: No Advance Directives Date on File: 01/08/20 service: No Current occupational status: retired Cognitive needs: Yes (cane ) Hearing needs: No Vision needs: Yes (glasses) Questionnaire PHQ-9 Over the last 2 weeks, how often have you been bothered by any of the following problems? 1. Little interest or pleasure in doing things: not at all 2. Feeling down, depressed, or hopeless: not at all 3. Trouble falling or staying asleep, or sleeping too much: not at all 4. Feeling tired or having little energy: not at all 5. Poor appetite or overeating: not at all 6. Feeling bad about yourself - or that you are a failure or have let yourself or your family down: not at all 7. Trouble concentrating on things, such as reading the newspaper or watching television: not at all 8. Moving or speaking so slowly that other people could have noticed. Or the opposite - being so fidgety or restless that you have been moving around a lot more than usual: not at all 9. Thoughts that you would be better off or of hurting yourself in some way: not at all Total score: 0 Source: Developed by Drs. Reid Pena, Claribel Gomez, Randy Dukes and colleagues, with an educational bala from [employer]. Thrive Questionnaire Date Thrive assessed: 04/11/24 I am a: Patient What is your living situation today?: I choose not to answer this question Within the past 12 months, did the food you bought not last and you didn't have the money to get more?: I choose not to answer this question Within the past 12 months, did you worry whether your food would run out before you got money to buy more?: I choose not to answer this question Do you have trouble paying for medicines?: I choose not to answer this question Do you have trouble getting transportation to medical appointments?: I choose no t to answer this question Do you have trouble paying your heating and electricity bill?: I choose not to answer this question Do you have trouble taking care of your child, family member or friend?: I choose not to answer this question Do you have trouble with day-to-day activities such as bathing, preparing meals, shopping, managing finances, etc.?: I choose not to answer this question Are you currently unemployed and looking for a job?: I choose not to answer this question Are you interested in more education?: I choose not to answer this question Please select the resources that you would like help with: None Currently or been in a relationship where the following occur: I choose not to answer THRIVE Score: 0 AUDIT C Alcohol Use Questionnaire (AUDIT-C) 1. How often do you have a drink containing alcohol?: Monthly or less 2. How many drinks containing alcohol do you have on a typical day when you are drinking?: 1 or 2 3. How often do you have six or more drinks on one occasion?: Never Total Score: 1 ROSARIO-7 AMB Questionnaire ROSARIO-7 Date ROSARIO - 7 assessed: 10/27/24 Feeling nervous, anxious, or on edge: 0 = Not at all Not being able to stop or control worryin = Not at all Worrying too much about different things: 0 = Not at all Trouble relaxin = Not at all Being so restless that it is hard to sit still: 0 = Not at all Becoming easily annoyed or irritable: 0 = Not at all Feeling afraid as if something awful might happen: 0 = Not at all Total ROSARIO-7 score (0-4 normal; 5-9 mild; 10-14 moderate; 15-21 severe): 0 Source: Developed by Drs. Reid Pena, Claribel Gomez, Randy Dukes and colleagues, with an educational bala from [employer]. Review of Systems Const All systems reviewed & are unremarkable except as noted in HPI and below Physical exam (Primary Care) Vital Signs: Last Vital Signs Temp 97.3 F 02/06/25 08:03 Pulse 90 02/06/25 08:03 BP 146/72 H 02/06/25 08:03 Pulse Ox 93 02/06/25 08:03 Oxygen Delivery Method Room Air 02/06/25 08:03 BMI result Body Mass Index 31.9 Tobacco/Smoking Status: Tobacco use Status Tobacco use date assessed 02/06/25 02/06/25 08:09 Patient Tobacco Use Status Former Tobacco user 02/06/25 08:09 Tobacco use type Cigarette 02/06/25 08:09 e-Cigarette/Vaping Use Never Used 02/06/25 08:09 PHQ-9: PHQ-9 Score PHQ-9: Total score 0 02/06/25 08:39 Thrive Assessment: Date of Thrive Assessment Date Thrive assessed 04/11/24 02/06/25 08:09 Currently or been in a relationship where the following occur: I choose not to answer Const General: no acute distress Nutritional Appearance: obese Orientation/consciousness: patient oriented x3 Resp Effort & Inspection: normal respiratory effort Auscultation: clear to auscultation bilaterally Cardio Heart sounds: S1 normal heart sound present and S2 normal heart sound present Neuro General: patient oriented x3, gait normal and moves all extremities Psych Speech and movement: Normal speech and movement present Coding Level of Care Code Est Pt Level 4 (83037) Diagnoses GI bleed K92.2 Chest pain R07.9 Time Spent (min) 20 Assessment & Plan Assessment & Plan (1) GI bleed: Code(s): K92.2 - Gastrointestinal hemorrhage, unspecified Category: Medical Plan: Acute blood loss anemia secondary to probable upper GI source (likely duodenal AVM). Chest pain secondary to anemia (demand ischemia). Follow-up with GI for outpatient capsule endoscopy (appointment pending). Monitor for recurrence of melena, chest pain, dizziness, or SOB; return as n eeded. (2) Chest pain: Code(s): R07.9 - Chest pain, unspecified Category: Medical Plan: Resolved; Chest pain secondary to anemia (demand ischemia). Continue Labetalol for hypertension. Lisinopril Dc'd due to LARISSA. Maintain adequate hydration and nutrition.
--- OUTSIDE RECORDS SUMMARY | 2025-02-06 08:03 | XMS_ITS | Clinical Summary ---
Author Organization [facility] Address [address] [place] [phone] Phone Care Team Providers Care Dairy Truck Driver Name Role Phone Ry Soriano MD Primary Care Provider [phone] Allergies No known active allergies Medications atorvastatin [...] (03/14/2024 10:30 AM EST): Good control by DexBringMeThat G7 download with average glucose 148, GMI [...] Rx on extra-depth orthopedic shoes by new drum builder Dr. Vilchis recently. -Labs today -Adjust Lantus [...] her methimazole. Had blood work done at [facility] will get results to determine if medication [...] today - Routine follow-up scheduled with her drum builder next week - Follow-up with Roxanna on [...] her glucose levels. Up to date with [facility], scheduled to see at the end [...] her glucose levels. Up to date with [facility]. Scheduled to see podiatry. Labs were done at [facility] will call for results Assessment & Plan [...] her glucose levels. Up to date with [facility]. Labs ordered today Assessment & Plan (02/16/2023 10:04 AM EST): Control is reasonable based upon the patient's SMBG readings. No frequent hypoglycemia. She recently has had a couple episodes of severe hypoglycemia based upon the definition of less than 54. She is not sure what caused the lows, she corrected with orange juice and was fine. She hasn't received her dexcom supplies from [facility] yet. The office called today to see [...] her glucose levels. Up to date with [facility] Labs ordered today Assessment & Plan (11/13/2022 [...] her glucose levels. Up to date with [facility] Labs ordered today Assessment & Plan (08/07/2022 4:45 PM EDT): Reasonable control by SMBG. Last A1c is not available. Waiting for old records from [facility]. Taking 27 units of Lantus at bedtime and NovoLog by sliding scale between 8 to 36 units 3 times a day before meals. She is also on 1000 mg metformin twice a day. Patient was using the kisha 2 CGM, her prescription was canceled by [facility] because of not getting supporting medical records. No frequent or severe hypoglycemia. I asked patient to call [facility] for prescription on Kisha 2 to be [...] Department Care Team Description 12/09/2024 Orders Only [facility] [address] [place] [address] [place] [address] Sushma Arias MD Type 2 diabetes mellitus with proteinuria (Primary Dx); Toxic thyroid nodule; Hyperparathyroidism from Last 3 Months Social History Tobacco [...] AM EST Office Visit [facility] [address] [place] [address] [place] [address] Sushma Arias MD [address] [place] [id number] [email or web address] Health Maintenance Due Date Last Done Comments DEPRESSION SCREENING 1957 HEPATITIS C SCREENING 08/18/1963 ZOSTER VACCINES (1 of 2) 08/18/1995 OSTEOPOROSIS SCREENING INITIAL (ONE-TIME) 2010 DIABETIC EYE EXAM 12/12/2018 RSV VACCINE (1 - 1-dose 75+ series) 2020 Adult Td,Tdap Booster 07/28/2024 07/28/2014 INFLUENZA VACCINE (#1) 2024 2, 01/05/2021, 01/23/2020, Additional history exists COVID-19 VACCINE ( - 2024- season) 2024 06/28/2020, 05/31/2020 HEMOGLOBIN A1C 12/11/2024 [...] this topic Medical Devices Implanted Type Area House Carpenter Helper Device Identifier Shelf Expiration Date Model / Serial / Lot Knee Wedge Size 3 Plate Bone Tibial Stemmed Nexgen Precoat 03c Cs/1bx/1ea - [id number] Implanted:Qty: 1 on 12/20/2018 by Binu Oliver MD at [facility] NODATA Left: Knee MANJEET / DIV OF [employer] 06/30/2028 [id number] / / Knee Stem 145mm 100 Od 14 Organizational Effectiveness Director Tivanium Tibial Solid Screw Primary Straight Impl Nexgen - [id number] Implanted:Qty: 1 on 12/20/2018 by Binu Oliver MD at [facility] STANDARD Left: Knee MANJEET / DIV OF [employer] 05/30/2028 [id number] / / [id number] Knee Implant 3 4 12mm Size Cd 3to4 Femoral Articular Surface Nexgen Lps Flex Fixed 05 - [id number] Implanted:Qty: 1 on 12/20/2018 by Binu Oliver MD at [facility] STANDARD Left: Knee MANJEET / DIV OF [employer] SQUIBB 07/30/2026 [id number] / / [id number] Block Augment 10mm 5448 03 27 Sz Tibial Nexgen Trabecular Metal Rt Lateral Lt Medial - [id number] Implanted:Qty: 1 on 12/20/2018 by Binu Oliver MD at [facility] STANDARD Left: Knee MANJEET / DIV OF [employer] 07/01/2023 [id number] / / [id number] Block Augment 10.0mm Size 3 Tibial Nexgen Trabecular Metal Lt Lateral Rt Medial - [id number] Implanted:Qty: 1 on 12/20/2018 by Binu Oliver MD at [facility] STANDARD Left: Knee MANJEET / DIV OF [employer] 07/31/2023 [id number] / / [id number] Knee Implant 38x8.5mm Patella Nexgen All Poly Standard 06 - [id number] Implanted:Qty: 1 on 12/20/2018 by Binu Oliver MD at [facility] STANDARD Left: Knee MANJEET / DIV OF [employer] 05/30/2026 [id number] / / [id number] Block Augment 5mm Knee Femoral Nexgen Trabecular Metal Distal Size D 19 - [id number] Implanted:Qty: 1 on 12/20/2018 by Binu Oliver MD at [facility] STANDARD Left: Knee MANJEET / DIV OF [employer] 03/01/2022 [id number] / / [id number] Block Augment 5mm Knee Femoral Nexgen Trabecular Metal Distal Size D 19 - [id number] Implanted:Qty: 1 on 12/20/2018 by Binu Oliver MD at [facility] STANDARD Left: Knee MANJEET / DIV OF [employer] 07/01/2023 [id number] / / [id number] Knee Implant Component Femoral Nexgen Complete Legacy Zimaloy Constrained Condylar Lt Size D Cs/1bx/1ea - [id number] Implanted:Qty: 1 on 12/20/2018 by Binu Oliver MD at [facility] STANDARD Left: Knee MANJEET / DIV OF [employer] 05/02/2028 [id number] / / [id number] Knee Stem 200mm 155 Od 13 Organizational Effectiveness Director Tivanium Tibial Solid Screw Primary Straight Impl Nexgen - [id number] Implanted:Qty: 1 on 12/20/2018 by Binu Oliver MD at [facility] STANDARD Left: Knee MANJEET / DIV OF [facility] 11/30/2022 [id number] / / [id number] Knee Implant 12mm Size 3 Component Articular Surface Nexgen Uhmwpe Lcck Cd Bx/1ea - [id number] Implanted:Qty: 1 on 07/04/2021 by Binu Oliver MD at [facility] STANDARD Left: Knee MANJEET / DIV OF [facility] [id number] 05/31/2027 [id number] / / [id number] Left Tkr Cement Bone 40gr Palacos R And G Gentamicin Radiopaque Deangelo/1ea - [id number] Implanted:Qty: 2 on 12/20/2018 by Binu Oliver MD at [facility] Left: Knee MANJEET / DIV OF [facility] 05/30/2021 [id number] / / [id number] Procedures Procedure Name Priority Date/Time Associated Diagnosis Comments COMPREHENSIVE METABOLIC PANEL (CMP) Routine 11/05/2024 12:29 PM EDT Hypercalcemia HEMOGLOBIN A1C Routine 06/10/2024 10:06 AM EDT Type 2 diabetes mellitus with other specified complication, with long-term current use of insulin from Last 3 Months or Most Recently Relevant to Health Maintenance Results * (ABNORMAL) Comprehensive metabolic panel (11/05/2024 12:29 PM EDT) SODIUM 139 133 - 146 mmol/L [facility] POTASSIUM 3.5 3.3 - 5.1 mmol/L [facility] CHLORIDE 104 96 - 108 mmol/L [facility] CO2 21 21 - 35 mmol/L [facility] BUN 12 6 - 19 mg/dL [facility] CREATININE 1.10 0.5 - 1.5 mg/dL [facility] GLUCOSE 88 70 - 99 mg/dL [facility] ALBUMIN 4.0 3.9 - 4.8 g/dL [facility] TOTAL PROTEIN 7.6 6.5 - 8.0 g/dL [facility] CALCIUM 10.0 8.4 - 10.3 mg/dL [facility] ALKALINE PHOSPHATASE 114 39 - 117 U/L [facility] TOTAL BILIRUBIN 0.3 0.0 - 1.2 mg/dL [facility] AST 22 0 - 37 U/L [facility] ALT 8 0 - 40 U/L [facility] GLOBULIN 3.6 1 - 4.8 g/dL [facility] EGFR 51(L) >59 mL/min/1.7 3m2 [facility] Comment:Estimated glomerular filtration rate calculated using the CKD-EPI refit equation. ANION GAP 18 10 - 20 mmol/L [facility] Blood 11/05/2024 12:2 9 PM EDT 11/05/2024 12:45 PM EDT us Sushma Arias MD LAB BLOOD BKR ORDERABLES Final Result [address] [phone] * (ABNORMAL) Hemoglobin A1c (06/10/2024 10:06 AM EDT) HEMOGLOBIN A1C 7.2(H) 4.3 - 5.8 % [facility] Blood 06/10/2024 10:0 6 AM EDT 06/10/2024 10:14 AM EDT us Jany Trevino PA-C LAB BLOOD BKR JACOBO LACKEY Final Result [address] [phone] from Last 3 Months or Most Recently Relevant to Health Maintenance [facility] MEDICARE [facility]PLACEMENT [facility] MEDICARE [facility]PLACEMENT [facility] MEDICARE REPLACEMENT [facility] MEDICARE REPLACEMENT [facility] MEDICARE REPLACEMENT [facility] MEDICARE REPLACEMENT [facility] MEDICARE REPLACEMENT [facility] MEDICARE REPLACEMENT Advance Directives For more information, please contact: [phone] (9AM - 5PM [facility], Sunday-Sunday) Documents on File Type Date Recorded Patient Lease Examiner Expl anation Healthcare Proxy 12/18/2018 HEALTH CARE [...] Agent (Proxy form on file) Care Teams Dairy Truck Driver Relationship Specialty Start Date End Date Ry Soriano MD [address] [place] [address] PCP - General Internal Medicine 07/29/18 Additional Source Comments The information contained in this document represents components of the legal health record. It is not the complete legal health record.[facility]
== END 2025-02-06 08:37 | disposition home or self-care (01) ==
LOC: HO.HMCH 07:59
PROVIDERS: PCP Internal Medicine; Visit Provider Nurse Practitioner Family
DX: K92.2 Gastrointestinal hemorrhage, unspecified (principal); R07.9 Chest pain, unspecified

== ENCOUNTER → 2025-02-06 07:58 | Outpatient (BNVA) | payer OTHER, SELFPAY | PROVIDERS: PCP Internal Medicine; Visit Provider Nurse Practitioner Family | DX: K92.2 Gastrointestinal hemorrhage, unspecified (principal); R07.9 Chest pain, unspecified | CPT/HCPCS: 96127; 99212 ==

== ENCOUNTER 2025-03-03 09:52 | Outpatient (AMB) | payer OTHER, SELFPAY ==
--- OUTSIDE RECORDS SUMMARY | 2025-02-28 23:59 | XMS_ITS | Continuity of Care Document ---
Author Organization [facility] Address [address] [place] [phone]- Care Team Providers Care Chief Of Service Name Role Phone Ry Soriano MD Primary Care Physician [phone] [facility] Date(s): 01/29/25 - 02/28/25 [facility] [address] [place] [phone]- Encounter Type: Triage Allergies, Adverse Reactions, Alerts No Known Allergies Medications aspirin 81 mg oral delayed release tablet = 81 mg, By Mouth, Daily in AM, # 30 tablet, 0 Refills, Maintenance, 09/24/19 11:12:00 AM EDT, EC Tablet, [facility], 163, cm, 09/24/19 8:25:00 EDT, Height, 86.5, kg, 09/16/19 17:32:00 EDT, Dry Weight Start Date: 09/24/19 Status: Ordered Medication Dispense Status: Completed Quantity: 30.0 Unit: tablet Total Allowed Fills: 1 Fills Dispensed: 0 atorvastatin 80 mg oral tablet 1 tablet = 80 mg, By Mouth, Daily at bedtime, # 30 tablet, 0 Refills, Maintenance, 09/24/19 11:12:00AM EDT, Tablet, [facility], 163, cm, 09/24/19 8:25:00 EDT, Height, 86.5, kg, 09/15/2016:32:00 EDT, Dry Weight Start Date: 09/24/19 Status: Ordered Medication Dispense Status: Completed Quantity: 30.0 Unit: tablet Total Allowed Fills: 1 Fills Dispensed: 0 docusate sodium 100 mg oral capsule 1 capsule = 100 mg, By Mouth, 2 times a day, PRN as needed for constipation, # 60 capsule, 0 Refills, Maintenance, 12/26/21 5:13:00 PM EDT, Capsule, [facility], Partial fill upon patient request if the prescription is for a schedule II opioid drug., 163, cm, 12/26/21 14:34:00 EDT, Height, 89.9, kg, 12/26/21 14:34:00 EDT, Dry Weight Start Date: 12/26/21 Status: Ordered Medication Dispense Status: Completed Quantity: 60.0 Unit: capsule Total Allowed Fills: 1 Fills Dispensed: 0 insulin lispro 100 u/ml subcutaneous injection 2-14 units, Subcutaneous Injection, 3 times a day before meals, # 15 mL, 0 Refills, Maintenance, 09/24/19 11:15:00 AM EDT, Injection, [facility], Ok to switch to the pen if insurance covers, 163, cm, 09/24/19 8:25:00 EDT, Height, 86.5, kg, 09/16/19 17:32:00 EDT, Dry Weight Start Date: 09/24/19 Status: Ordered Medication Dispense Status: Completed Quantity: 15.0 Unit: mL Total Allowed Fills: 1 Fills Dispensed: 0 labetalol 100 mg oral tablet = 100 mg, By Mouth, 2 times a day, # 120 tablet, 0 Refills, Maintenance, 02/03/25 2:16:00 PM EST, Tablet, [facility], Partial fill upon patient request if the prescription is for a schedule II opioid drug., 165, cm, 02/03/25 9:45:00 EST, Height, 83.3, kg, 01/31/25 5:50:00 EDT, Dry Weight Start Date: 02/03/25 Stop Date: 04/04/25 Status: Ordered Medication Dispense Status: Completed Quantity: 120.0 Unit: tablet Total Allowed Fills: 1 Fills Dispensed: 0 Lantus Inj See Instructions, 30 U (0.3 mL) Subcutaneous Injection Daily at supper from 11/06 to 11/09. 25 ml (0.25 ml) Subcutaneous injection daily at supper from 11/10 onwards., 0 Refills, Maintenance, 09/24/19 11:13:00 AM EDT, Injection Start Date: 09/24/19 Status: Ordered Medication Dispense Status: Completed Total Allowed Fills: 1 Fills Dispensed: 0 methimazole 5 mg oral tablet 5 mg, 1, tablet, By Mouth, Daily, # 270 tablet, Refills 0, Maintenance, 01/18/25 3:50:00 PM EDT, Partial fill upon patient request if the prescription is for a schedule II opioid drug. Start Date: 01/18/25 Status: Ordered Medication Dispense Status: Completed Quantity: 270.0 Unit: tablet Total Allowed Fills: 1 Fills Dispensed: 0 omeprazole 40 mg oral enteric coated capsule 1 capsule = 40 mg, By Mouth, Daily, before a meal, # 30 capsule, 0 Refills, Maintenance, 01/20/25 5:47:00 PM EDT, EC Capsule, [facility], Partial fill upon patient request if the prescription is for a schedule II opioid drug., 165, cm, 01/20/25 15:56:00 EDT, Height, 86.5, kg, 01/18/25 17:48:00 EDT, Dry Weight Start Date: 01/20/25 Status: Ordered Medication Dispense Status: Completed Quantity: 30.0 Unit: capsule Total Allowed Fills: 1 Fills Dispensed: 0 Suprep Bowel Prep Kit oral liquid See Instructions, per GI office, # 1 kit, 0 Refills, Maintenance, 01/21/25 7:04:00 PM EDT, [facility], Partial fill upon patient request if the prescription is for a schedule II opioid drug., per GI office, 165, cm, 01/20/25 15:56:00 EDT, Height, 86.5, kg, 01/18/25 17:48:00 EDT, Dry Weight Start Date: 01/21/25 Status: Ordered Medication Dispense Status: Completed Quantity: 1.0 Unit: kit Total Allowed Fills: 1 Fills Dispensed: 0 torsemide 20 mg oral tablet 0.5 tablet = 10 mg, By Mouth, Daily before breakfast, # 30 tablet, 0 Refills, Maintenance, 09/24/19 11:16:00 AM EDT, Tablet, [facility], 163, cm, 09/24/19 8:25:00 EDT, Height, 86.5, kg, 09/16/19 17:32:00 EDT, Dry Weight Start Date: 09/24/19 Status: Ordered Medication Dispense Status: Completed Quantity: 30.0 Unit: tablet Total Allowed Fills: 1 Fills Dispensed: 0 Tylenol 325 mg oral capsule 2 capsule = 650 mg, By Mouth, Every 4 hours, PRN Pain , Mild, # 90 capsule, 0 Refills, Maintenance,12/26/21 5:13:00 PM EDT, Capsule, [facility], Partial fill upon patient request ifthe prescription is for a schedule II opioid drug., 163, cm, 12/26/21 14:34:00 EDT, Height, 89.9, kg, 12/26/21 14:34:00 EDT, Dry Weight Start Date: 12/26/21 Status: Ordered Medication Dispense Status: Completed Quantity: 90.0 Unit: capsule Total Allowed Fills: 1 Fills Dispensed: 0 Problem List Condition Confirmation Course Effective Dates Status H ealth Status Informant Coronary artery disease involving coronary bypass graft Confirmed Active Coronary artery disease Confirmed Active GERD (gastroesophageal reflux disease) Confirmed Active HLD (hyperlipidemia) Confirmed Active HTN (hypertension) Confirmed Active Knee pain, bilateral Confirmed Active Obese class I Confirmed Active Obesity Confirmed Active Osteoarthritis Confirmed Active Neuropathic pain of left lower extremity Confirmed Active Follow-up examination after gynecological surgery Confirmed Active DM2 (diabetes mellitus, type 2) Confirmed Active Umbilical hernia Confirmed Active Social History Social History Type Response Sexual Sexually involved in last 6 months: No. Smoking Status Former smoker, quit more than 30 days ago; Other: quit about 10 years ago; entered on: 11/21/21 Sex Sex Representation Female (finding) Patient Care team information Care Team Personnel Name: Pamela Castillo RN Position: [facility] RN Member Role: Primary Care Nurse Name: Paty Galloway RN Position: [facility] RN Member Role: Primary Care Nurse Name: Jennifer Miramontes RN Position: [facility] SN RN Member Role: Primary Care Nurse Name: Mary Wynne RN Position: [facility] RN Member Role: Primary Care Nurse Name: Esme Burns RN Position: [facility] RN Member Role: Primary Care Nurse Name: Leatha Quevedo RN Position: [facility] Hospital Automatic Pinsetter Adjuster Member Role: Primary Care Nurse Name: Anisha Lane NP Position: [facility] Associate Professional Member Role: Primary Care Nurse Address: [address] [place] [address] [place] [address]- [place] Telecom: Name: Tala Barroso RN Position: S RN Member Role: Primary Care Nurse Name: Zac Willard RN Position: S RN Member Role: Primary Care Nurse Name: Abi Mojica RN Position: S RN Member Role: Primary Care Nurse Name: Ry Soriano MD Position: Reference Physician Member Role: PCP Address: [address] [place] [phone]- Telecom: Name: Abeba Sandhu RN Position: S RN Member Role: Primary Care Nurse Name: Virginia Cleveland LPN Position: S RN Member Role: Primary Care Nurse Name: Cira Gomez RN Position: S RN Member Role: Primary Care Nurse Care Team Related Persons Name: MELIZA MORTENSEN Insurance Providers Guarantor name: ARIANNE MORTENSEN [employer] Plan Information #: 1 Payer: [facility] [employer] Payer Identifier: NA Member Number: [id number] Group Number: [id number] Subscriber Identifier: NA Relationship to Subscriber: self Coverage Type: Medicare Managed Care (Includes Medicare Advantage Plans) Coverage Verification Date: NA Telecom: NA Address: NA
--- OUTSIDE RECORDS SUMMARY | 2025-03-01 23:59 | XMS_ITS | Continuity of Care Document ---
Author Organization [facility] Address [address] [place] [phone]- Care Team Providers Care Postal Superintendent Name Role Phone Ry Soriano MD Primary Care Physician Encounter [facility] Date(s): 01/30/25 - 03/01/25 [facility] [address] [place] [phone]- Encounter Type: Triage Allergies, Adverse Reactions, Alerts No Known Allergies Medications aspirin 81 mg oral delayed release tablet = 81 mg, By Mouth, Daily in AM, # 30 tablet, 0 Refills, Maintenance, 09/24/19 11:12:00 AM EDT, EC Tablet, [facility], 163, cm, 09/24/19 8:25:00 EDT, Height, 86.5, kg, 09/16/19 17:32:00 EDT, Dry Weight Start Date: 09/24/19 Status: Ordered Medication Dispense Status: Completed Quantity: 30.0 Unit: tablet Total Allowed Fills: 1 Fills Dispensed: 0 atorvastatin 80 mg oral tablet 1 tablet = 80 mg, By Mouth, Daily at bedtime, # 30 tablet, 0 Refills, Maintenance, 09/24/19 11:12:00AM EDT, Tablet, [facility], 163, cm, 09/24/19 8:25:00 [...] Refills, Maintenance, 09/24/19 11:15:00 AM EDT, Injection, [facility], Ok to switch to [...] Refills, Maintenance, 02/03/25 2:16:00 PM EST, Tablet, [facility], Partial fill upon patient request [...] Refills, Maintenance, 09/24/19 11:16:00 AM EDT, Tablet, [facility], 163, cm, 09/24/19 8:25:00 EDT, Height, [...] Team Personnel Name: Pamela Castillo RN Position: [facility] RN Member Role: Primary Care Nurse Name: Paty Galloway RN Position: [facility] RN Member Role: Primary Care Nurse Name: Jennifer Miramontes RN Position: [facility] SN RN Member Role: Primary Care Nurse Name: Mary Wynne RN Position: [facility] RN Member Role: Primary Care Nurse Name: Esme Burns RN Position: [facility] RN Member Role: Primary Care Nurse Name: Leatha Quevedo RN Position: [facility] Hospital Opinion Polls Survey Worker Member Role: Primary Care Nurse Name: Anisha Lane NP Position: [facility] Associate Professional Member Role: Primary Care Nurse Address: [address] [place] [address] [place] [address]- [place] Telecom: Name: Tala Barroso RN Position: S RN Member Role: Primary Care Nurse Name: Zac Willard RN Position: S RN Member Role: Primary Care Nurse Name: Abi Mojica RN Position: S RN Member Role: Primary Care Nurse Name: Ry Soriano MD Position: Reference Physician Member Role: PCP Address: [address] [place] [phone]- Telecom: Name: Abeba Sandhu RN Position: S RN Member Role: Primary Care Nurse Name: Virginia Cleveland LPN Position: S RN Member Role: Primary Care Nurse Name: Cira Gomez RN Position: S RN Member Role: Primary Care Nurse Care Team Related Persons Name: MELIZA MORTENSEN Insurance Providers Guarantor name: ARIANNE MORTENSEN [employer] Plan Information #: 1 Payer: [facility] [employer] Payer Identifier: NA Member Number: [id number] Group Number: [id number] Subscriber Identifier: NA Relationship to Subscriber: self Coverage Type: Medicare Managed Care (Includes Medicare Advantage Plans) Coverage Verification Date: NA Telecom: NA Address: NA
[2025-03-03 09:56] VITALS: BP 138/70; PULSE 66; O2SAT 98; BMI 31.6
--- NOTE | 2025-03-03 09:56 | A.OFFPC_ITS ---
Vital Signs 03/03/25 09:56 Height 5 ft 4 in Weight 184 lb BMI 31.6 BP 138/70 Blood Pressure Location Lt brachial Position Sitting Pulse 66 Pulse Source Pulse Oximeter Pulse Oximetry (%) 98 Oxygen Delivery Method Room Air Intake Visit Reasons: DM, PAD Allergies No Known Allergies (No Known Allergies*) Allergy (Verified 02/06/25 08:06) Medication List - Last Reconciled 03/03/25 by Ry Soriano MD albuterol sulfate 90 mcg/actuation 2 puffs inhalation Q6H PRN aspirin 81 mg PO DAILY atorvastatin 80 mg PO DAILY blood sugar diagnostic (FreeStyle Lite Strips) As directed check the BS TID blood-glucose meter ([employer] Ultra2 Meter) As directed flash glucose sensor (FreeStyle Kisha 2 Sensor kit) three times a day insulin aspart U-100 (Novolog FlexPen U-100 Insulin aspart) 8 - 36 units subcut TID insulin glargine 25 units subcut DAILY labetalol 100 mg PO BID methimazole 5 mg PO DAILY omeprazole 40 mg PO DAILY pen needle, diabetic (1st Tier Unifine Pentips) As directed injection 4 times a day pen needle, diabetic As directed [Pull ups As directed] [PULL UPS Extra Large As directed] torsemide 20 mg PO DAILY Tobacco use date assessed: 02/06/25 Fall risk assessment: No Falls in past year Last assessed Fall Risk: 03/03/25 Dental Screening Dental Screen Date: 02/06/25 HPI HPI Comments History of Present Illness Details History of Present Illness The patient is a 79 year old individual presenting for follow-up on multiple chronic conditions including diabetes mellitus, coronary artery disease, hypercholesterolemia, hypertension, obesity, and peripheral vascular disease. The patient was recently admitted to [facility] for chest pain and dark stools, which occurred a few hours after a colonoscopy in December 2024. The chest pain was attributed to demand ischemia secondary to anemia from a GI bleed. The patient's hemoglobin was noted to be 6.8 g/dL with a hematocrit of 22.4% on January 30 and dropped as low as 4-5 g/dL during the hospitalization. The hemoglobin improved to 8.4 g/dL by February 03. An EGD performed on February 02, 2025, was normal. A colonoscopy on January 30, 2025, revealed melena throughout the entire colon and terminal ileum, suggesting a bleed proximal to the colon, as well as medium non-bleeding internal hemorrhoids. The patient has a known history of duodenal AVMs. A video capsule endoscopy was performed on February 19 to evaluate the small bowel, but results are pending. A CT enterography on February 02 showed no active bleeding but noted short segment wall thickening in the proximal to mid jejunum, which may be secondary to incomplete distension. Cardiovascular history is notable for an echocardiogram on January 19, 2025, which showed a normal EF of 57%, moderate septal hypertrophy, a mildly dilated right ventricle with reduced systolic function, and moderate tricuspid regurgitation. Compared to a 2019 study, the right ventricular function has worsened, but a prior left ventricular apical motion abnormality has resolved. For peripheral vascular disease, the patient underwent bilateral lower extremity arterial revascularization procedures in September and December. A right lower extremity arterial duplex scan on January 16 showed patent proximal superficial femoral artery stents but also a 7 cm occlusion of the distal superficial femoral artery. Other history includes right knee osteoarthritis, for which the patient received injections on February 05. The patient follows with endocrinology for diabetes and hematology. Medications were adjusted during the recent hospitalization, with lisinopril discontinued. Health Maintenance A prescription for a new cane will be provided, as the patient's current one is broken. A prescription for prolapse pads will also be provided as requested. The patient has a scheduled follow-up for a complete physical in April, at which time these issues will be re-evaluated. Social History - The patient reports weight around 180 lbs. - The patient uses a cane for ambulation and requires a new prescription as the current one is breaking. Results - Labs: - Hemoglobin: 8.4 g/dL (Feb 03), 6.8 g/dL (Jan 30), 9.1 g/dL (Nov 05). - Hematocrit: 22.4% (Jan 30), 31.6% (Nov 05). - LDL: <70 mg/dL (Jan last year). - Imaging and Procedures: - Video Capsule Endoscopy (Feb 19, 2025) : Performed, results pending. - CT Enterography (Feb 02, 2025): No evid ence of active bleeding; short segment wall thickening in the proximal to mid jejunum, possibly due to incomplete distension. - EGD (Feb 02, 2025): Normal esophagus, s tomach, and duodenum. - Colonoscopy (Jan 30, 2025): Melena thr oughout the entire colon and terminal ileum; medium nonbleeding internal hemorrhoids. - Echocardiogram (Jan 19, 2025): EF 57%, moderate septal hypertrophy, mildly dilated RV with reduced systolic function, moderate tricuspid regurgitation. - CT Abdomen/Pelvis (Jan 18, 2025): Nega tive. - Duplex Scan Right Lower Extremity (Jan 16, 2025): Mild-moderate plaque, patent proximal SFA stents, 7cm occlusion of the distal superficial femoral artery. - Chest X-ray (Jan 2025): Negative. [facility] Medical History (Updated 02/06/25 @ 08:37 by Elisabeth Early NP) Chest pain GI bleed Pulmonary edema COVID-19 virus infection Obesity (BMI 30-39.9) Diabetic nephropathy Essential hypertension Lab test positive for detection of COVID-19 virus Toxic multinodular goiter Tubular adenoma of colon Coronary artery disease Hypercholesterolemia Type 2 diabetes mellitus with hyperglycemia Surgical History Hx of colonoscopy Status post coronary artery bypass graft History of coronary artery bypass graft x 3 (~09/17/19) History of cardiac catheterization (~09/16/19) History of total left knee replacement H/O umbilical hernia repair S/P lumpectomy, left breast Family History Father No problems noted. Mother No problems noted. Social History Housing: Apartment Alcohol intake: current Alcohol intake frequency: holidays/special occasions only Comment: beer new year Patient Tobacco Use Status: Former Tobacco user Tobacco use type: Cigarette Years Smoked: 1999 quit e-Cigarette/Vaping Use: Never Used Second Hand Smoke Exposure: No Advance Directives Date on File: 01/08/20 service: No Current occupational status: retired Cognitive needs: Yes (cane ) Hearing needs: No Vision needs: Yes (glasses) Questionnaire Thrive Questionnaire Date Thrive assessed: 04/11/24 I am a: Patient What is your living situation today?: I choose not to answer this question Within the past 12 months, did the food you bought not last and you didn't have the money to get more?: I choose not to answer this question Within the past 12 months, did you worry whether your food would run out before you got money to buy more?: I choose not to answer this question Do you have trouble paying for medicines?: I choose not to answer this question Do you have trouble getting transportation to medical appointments?: I choose not to answer this question Do you have trouble paying your heating and electricity bill?: I choose not to answer this question Do you have trouble taking care of your child, family member or friend?: I choose not to answer this question Do you have trouble with day-to-day activities such as bathing, preparing meals, shopping, managing finances, etc.?: I choose not to answer this question Are you currently unemployed and looking for a job?: I choose not to answer this question Are you interested in more education?: I choose not to answer this question Please select the resources that you would like help with: None Currently or been in a relationship where the following occur: I choose not to answer THRIVE Score: 0 ROSARIO-7 AMB Questionnaire ROSARIO-7 Date ROSARIO - 7 assessed: 10/27/24 Source: Developed by Drs. Reid Pena, Claribel Gomez, Randy Dukes and colleagues, with an educational bala from [employer]. Review of Systems Narrative Review of Systems - Constitutional: Reports fatigue. - Respiratory: Reports a persistent cough that is worse at night and started after a recent endoscopy. - Gastrointestinal: Reports having black stools and constipation. Physical exam (Primary Care) Vital Signs: Last Vital Signs Pulse 66 03/03/25 09:56 BP 138/70 03/03/25 09:56 Pulse Ox 98 03/03/25 09:56 Oxygen Delivery Method Room Air 03/03/25 09:56 BMI result Body Mass Index 31.6 Tobacco/Smoking Status: Tobacco use Status Tobacco use date assessed 02/06/25 03/03/25 09:58 Patient Tobacco Use Status Former Tobacco user 03/03/25 09:58 Tobacco use type Cigarette 03/03/25 09:58 e-Cigarette/Vaping Use Never Used 03/03/25 09:58 Thrive Assessment: Date of Thrive Assessment Date Thrive assessed 04/11/24 03/03/25 09:58 Currently or been in a relationship where the following occur: I choose not to answer Narrative Physical Exam - HEENT: Throat was examined. Const General: alert; No acute distress Eyes Conjunctivae: conjunctivae normal Resp Auscultation: clear to auscultation bilaterally Cardio Rate: regular rate Rhythm: regular rhythm GI Inspection: Yes normal to inspection Extrem General: Yes normal to inspection and No edema Results AMB Hemoglobin A1c AMB Hemoglobin A1c 6.9 % Last Edit by Lory Crane CMA on 03/03/25 10 :22 Results Reviewed Results Reviewed: Laboratory Last Values Hgb A1c (Clinic) 6.9 % (4.0-6.0) H 03/03/25 09:58 Coding Level of Care Code Complex visit Add On G2211 Diagnoses Type 2 diabetes mellitus with hyperglycemia, with long-term current use of insulin E11.65; Z79.4 Diabetes mellitus [facility] insulin use: with [facility] use Essential hypertension I10 Hypercholesterolemia E78.00 Coronary artery disease involving [place] coronary artery of [place] heart without angina pectoris I25.10 Associated angina: without angina Coronary Disease-Associated Artery/Lesion type: [place] artery [place] vs. 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 Hemoglobin A1c goal of less than 7.0. Patient does see endocrinology presently on NovoLog and glargine metformin on (2) Essential hypertension: Code(s): I10 - Essential (primary) hypertension Category: Medical Plan: Continue with blood pressure medication. Decrease salt intake and exercise takes labetalol 100 mg twice a day metoprolol 25 mg twice a day amlodipine 5 mg once a day lisinopril was taken off (3) Hypercholesterolemia: Comment: March 2022 Code(s): E78.00 - Pure hypercholesterolemia, unspecified Category: Medical Plan: Avoid fried foods, chicken skin, eggs, butter margarine, pastries and meat. Be it pork or beef they have a lot of cholesterol LDL goal of less than 70 and triglyceride of less than 150 last LDL was January last year less than 70 (4) Coronary artery disease: Comment: nuclear stress test positive September 2019 EF 60 % moderate a symmetrical septal hypertrophy, catheterization done and bypass September 2019 CABG x3 Code(s): I25.10 - Atherosclerotic heart disease of [place] coronary artery without angina pectoris Category: Medical Qualifiers: Associated angina: without angina Coronary Disease-Associated Artery/Lesion type: [place] artery [place] vs. transplanted heart: [place] heart Qualified Code(s): I25.10 - Atherosclerotic heart disease of [place] coronary artery without angina pectoris Plan: Control the cholesterol, weight, blood pressure, diabetes on aspirin 81 mg once a day and clopidogrel 75 mg once a day (5) Peripheral arterial disease: Comment: Right leg proximal and distal occlusion of the superficial femoral artery popliteal artery patent, left leg proximal occlusion femoral artery superficial femoral artery occlusions Joon canal and distal popliteal artery August 2024 Code(s): I73.9 - Peripheral vascular disease, unspecified Category: Medical Plan: Patient follows up with vascular and is on clopidogrel (6) Obesity (BMI 30-39.9): Code(s): E66.9 - Obesity, unspecified Category: Medical Plan: Diet and exercise (7) Right knee pain: Code(s): M25.561 - Pain in right knee Category: Medical Plan: Patient follows up with ortho and had injections of the knee (8) GI bleed: Code(s): K92.2 - Gastrointestinal hemorrhage, unspecified Category: Medical Plan: Patient was admitted and had endoscopy done upper and lower which showed melena in the whole colon. Patient was advised to get capsule video endoscopy which was done in January 2025 CT enterography done in February 02 showing no evidence of active bleeding short segment wall thickening in the proximal to mid jejunum but may be due to incomplete distention fluid filled appearance of the colon CT of the abdomen and pelvis in 01/18/2025 negative Plan Plan Patient was informed and verbally consented to the use of an ambient scribe for clinic note documentation during this visit. 1. Gastrointestinal Bleeding And Anemia The patient's bleeding source is suspected to be in the jejunum, given normal EGD and melena throughout the colon on colonoscopy. A video capsule endoscopy was performed to investigate but the results are not yet available; a request will be made to obtain the report. A new blood count will be ordered to monitor the patient's hemoglobin levels, as the last value was 8.4 g/dL on February 03, up from a asia of 6.8 g/dL or lower. A prescription for a proton-pump inhibitor will be sent to protect the stomach, despite the bleeding not originating there. 2. Hypertension Medications were reviewed, with the patient currently on labetalol 100 mg twice a day and metoprolol 25 mg twice a day. Lisinopril was discontinued during the recent hospitalization due to anemia and concern for renal perfusion. The patient does not appear to be taking amlodipine currently. 3. Coronary Artery Disease And Hypercholesterolemia The LDL goal is less than 70 mg/dL. The patient is on aspirin 81 mg and clopidogrel 75 mg daily for CAD and PVD, which poses a bleeding risk that must be balanced with the need for antiplatelet therapy. 4. Diabetes Mellitus The patient's hemoglobin A1c goal is less than 7.0%. The patient follows with endocrinology for management and is prescribed Novolog, glargine, and metformin, though the patient reports not currently taking metformin. 5. Chronic Cough The patient's cough began after a recent esophagogastroduodenoscopy. This is likely due to procedural irritation and is expected to resolve over time. A cardiac etiology is less likely given recent cardiac testing, but the patient will continue to monitor weight daily as part of heart failure management. 6. Constipation The patient was advised to use the prescribed laxative (docusate sodium) as needed for constipation. Discussion Notes I reviewed the patient's recent complex hospitalization for a GI bleed. I explained that based on the EGD and colonoscopy findings, the source of the bleed is likely in the small intestine, specifically the jejunum, which is difficult to visualize and access. I informed the patient that if the bleeding is not active, the standard management is monitoring blood counts, and more invasive intervention would only be considered for active hemorrhage. We discussed that a video capsule endoscopy has been performed, and I will be requesting the results to get more information. I explained the balancing act of using blood thinners (aspirin and clopidogrel), which are necessary for the patient's peripheral artery stents but increase the risk of bleeding. I also explained that the significant anemia placed stress on the patient's organs, necessitating the discontinuation of the lisinopril. Regarding the patient's new cough, I explained it is likely post-procedural irritation that should resolve with time, and that a cardiac cause is less likely given the recent stable echocardiogram. I am ordering a follow-up blood count to check the patient's hemoglobin level and have provided requested prescriptions for a new cane and prolapse pads. We confirmed the follow-up appointment for a complete physical is in April. Patient Instructions - We are ordering a new blood test to check your blood count levels. - We will call the hospital to get the results from the camera pill test you swallowed. - If you are constipated, please use the laxative medication (stool softener) that is on your medication list. - A prescription for your stomach protection medicine has been refilled. - I have given you prescriptions for a new cane and for the special pads you need. - Continue to weigh yourself every day. - Your new cough is likely from irritation when the tube was put down your throat for the test and it should get better on its own. - Your next follow-up appointment for a full check-up is already scheduled for April. Orders: Orders Complete Blood Count Auto Diff Today K92.2 - Gastrointestinal hemorrhage, unspecified Hemoglobin A1c Today K92.2 - Gastrointestinal hemorrhage, unspecified Reticulocyte Count Today K92.2 - Gastrointestinal hemorrhage, unspecified Lipid Panel Today E78.00 - Pure hypercholesterolemia, unspecified, K92.2 - Gastrointestinal hemorrhage, unspecified AMB Hemoglobin A1c Today Z13.9 - Encounter for screening, unspecified Comprehensive Met. Panel Today K92.2 - Gastrointestinal hemorrhage, unspecified Ferritin Today K92.2 - Gastrointestinal hemorrhage, unspecified Thyroid Stimulating Hormone Today K92.2 - Gastrointestinal hemorrhage, unspecified Vitamin B12 and Folate Today K92.2 - Gastrointestinal hemorrhage, unspecified NT Pro B Type Natriuretic Pept Today I25.10 - Atherosclerotic heart disease of chene[place] coronary artery without angina pectoris Medications: New [CANE] As directed 1 ea 0RF M17.10 - Unilateral primary osteoarthritis, unspecified knee omeprazole 40 mg PO DAILY 30 caps 2RF Refilled [PULL UPS Extra Large] As directed 240 ea 3RF R32 - Unspecified urinary incontinence
--- OUTSIDE RECORDS SUMMARY | 2025-03-03 11:00 | XMS_ITS | Encounter Summary ---
Author Organization [facility] Address [address] [place] [address] [place] [address] Phone Care Team Providers Care Gunsmith Apprentice Name Role Phone Ry Soriano MD Primary Care Provider [phone] Encounter Details Date Type Department Care Team (Late Contact Info) Description 12/20/2018 Procedure Pass [facility] [address] [place] [address] Social History Tobacco Use Types Packs/Day Years [...] 11:40 AM EST Office Visit [facility] [address] [place] [address] [place] [address] Sushma Arias MD [address] [place] [phone] documented as of this encounter Visit Diagnoses Not on filedocumented in this encounter Care Teams Gunsmith Apprentice Relationship Specialty Start Date End Date Ry Soriano MD [address] [place] [address] PCP - General Internal Medicine 07/29/18 documented as of this encounter Additional Source Comments The information contained in this document represents components of the legal health record. It is not the complete legal health record.[facility]
--- OUTSIDE RECORDS SUMMARY | 2025-03-03 11:00 | XMS_ITS | Encounter Summary ---
Author Organization [facility] Address [address] [facility] [address] [place] [phone] Phone Care Team Providers Care Certified Meeting Professional Name Role Phone Ry Soriano MD Primary Care Provider [phone] Encounter Details Date Type Department Care Team (Late st Contact Info) Description 07/04/2021 Procedure Pass [facility] Periop [address] [place] [address] Social History Tobacco Use Types Packs/Day Years [...] 07/06/2021 9:00 AM Bibiana Xiong, RN * [facility] Suicide Severity Rating Scale (Screener/Recent Self-Report) Question [...] 11:40 AM EST Office Visit [facility] [address] [place] [phone] Sushma Arias MD [address] [place] [address] [email or web address] documented as of this encounter Visit Diagnoses Not on filedocumented in this encounter Care Teams Certified Meeting Professional Relationship Specialty Start Date End Date Po, Ry Horan MD [address] [facility] [address] [place] [phone] PCP - General Internal Medicine 07/29/18 documented as of this encounter Additional Source Comments The information contained in this document represents components of the legal health record. It is not the complete legal health record.[facility]
--- OUTSIDE RECORDS SUMMARY | 2025-03-03 11:00 | XMS_ITS | Encounter Summary ---
Author Organization [facility] Address [address] [place] [address] Phone Care Team Providers Care Edging Supervisor Name Role Phone Ry Soriano MD Primary Care Provider [phone] Encounter Details Date Type Department Care Team [...] AM EST Office Visit [facility] [address] [place] [phone] Sushma Arias MD [address] [place] [address] documented as of this encounter Visit Diagnoses Not on filedocumented in this encounter Care Teams Edging Supervisor Relationship Specialty Start Date End Date Ry Soriano MD [address] [place] [phone] PCP - General Internal Medicine 07/29/18 documented as of this encounter Additional Source Comments The information contained in this document represents components of the legal health record. It is not the complete legal health record.[facility]
--- OUTSIDE RECORDS SUMMARY | 2025-03-03 11:00 | XMS_ITS | Encounter Summary ---
Author Organization [facility] Address [address] [place] [phone] Phone Care Team Providers Care Cracker And Cookie Machine Operator Name Role Phone Ry Soriano MD Primary Care Provider [phone] Encounter Details Date Type Department Care Team (Late Contact Info) Description 12/20/2018 Procedure Pass [facility] Periop [address] [place] [phone] Social History Tobacco Use Types Packs/Day Years [...] 11:40 AM EST Office Visit [facility] [address] [place] [address] [place] [address] Sushma Arias MD [address] [place] [phone] documented as of this encounter Visit Diagnoses Not on filedocumented in this encounter Care Teams Cracker And Cookie Machine Operator Relationship Specialty Start Date End Date Ry Soriano MD [address] [place] [address] PCP - General Internal Medicine 07/29/18 documented as of this encounter Additional Source Comments The information contained in this document represents components of the legal health record. It is not the complete legal health record.[facility]
--- OUTSIDE RECORDS SUMMARY | 2025-03-03 11:00 | XMS_ITS | Encounter Summary ---
Author Organization [facility] Address [address] [place] [address] Phone Care Team Providers Care Miter Sawyer Name Role Phone Ry Sroiano MD Primary Care Provider [phone] Reason for Referral * - Closed Specialty Diagnoses / Procedures Referred By Contholly t Referred To Contact Procedures NM Bone Outside (No Interpretation) Binu Oliver MD Phone: tel: fax: mailto:[email or web address] Referral ID Status Reason Start Date Expiration Date Visits Re quested Visits Authorized [id number] Closed 08/16/2018 08/16/2019 1 1 Encounter Details Date Type Department Care Team (Late st Contact Info) Description 08/16/2018 Transcribe Orders [facility] [address] [place] [address] Pierre Contreras [address] [place] [address] [email or web address] Social History Tobacco Use Types Packs/Day Years [...] 11:40 AM EST Office Visit [facility] [address] [place] [address] [place] [address] Sushma Arias MD [address] [place] [address] [address] [place] [address] [email or web address] documented as of this encounter Results * [...] INTE RPRETATION Final Result Performing Organization Address [facility] Co de Phone Number [facility] * XR Lower Extremity Outside (No Interpretation) (08/16/2018 10:32 AM EDT) Narrative [facility] - 08/16/2018 10:32 AM EDT This study is for PACS storage only and not for interpretation. us Binu Oliver MD IMG OUTSIDE IMAGING W/OUT INTE RPRETATION Final Result Performing Organization Address City/[facility]/ZIP Co de Phone Number [facility] * NM Bone Outside (No Interpretation) (08/16/2018 10:32 AM EDT) Narrative [facility] - 08/16/2018 10:32 AM EDT This study is for PACS storage only and not for interpretation. us Binu Oliver MD IMG OUTSIDE IMAGING W/OUT INTE RPRETATION Final Result [facility] documented in this encounter Visit Diagnoses Not on filedocumented in this encounter Care Teams Miter Sawyer Relationship Specialty Start Date End Date Ry Soriano MD [address] [place] [phone] PCP - General Internal Medicine 07/29/18 documented as of this encounter Additional Source Comments The information contained in this document represents components of the legal health record. It is not the complete legal health record.[facility]
--- OUTSIDE RECORDS SUMMARY | 2025-03-03 11:01 | XMS_ITS | Clinical Summary ---
Author Organization [facility] Address [address] [facility] [address] [place] [address] Phone Care Team Providers Care Ehs Specialist Name Role Phone Ry Soriano MD Primary Care Provider [phone] Allergies No known active allergies Medications atorvastatin [...] (03/14/2024 10:30 AM EST): Good control by [employer] [place] [employer] G7 download with average glucose 148, GMI [...] Rx on extra-depth orthopedic shoes [facility] Vilchis recently. -Labs today -Adjust Lantus [...] her methimazole. Had blood work done at [facility] will get results to determine if medication [...] today - Routine follow-up scheduled with [facility] next week - Follow-up with Roxanna on [...] her glucose levels. Up to date with [facility], scheduled to see at the end of [...] her glucose levels. Up to date with [facility]. Scheduled to see podiatry. Labs were done at [facility] will call for results Assessment & Plan [...] her glucose levels. Up to date with [employer]. Labs ordered today Assessment & Plan (02/16/2023 10:04 AM EST): Control is reasonable based upon the patient's SMBG readings. No frequent hypoglycemia. She recently has had a couple episodes of severe hypoglycemia based upon the definition of less than 54. She is not sure what caused the lows, she corrected with orange juice and was fine. She hasn't received her dexcom supplies from [employer] yet. The office called today to see [...] her glucose levels. Up to date with [employer]. Labs ordered today Assessment & Plan (11/13/2022 [...] her glucose levels. Up to date with [employer]. Labs ordered today Assessment & Plan (08/07/2022 4:45 PM EDT): Reasonable control by SMBG. Last A1c is not available. Waiting for old records from [facility]. Taking 27 units of Lantus at bedtime and NovoLog by sliding scale between 8 to 36 units 3 times a day before meals. She is also on 1000 mg metformin twice a day. Patient was using the kisha 2 CGM, her prescription was canceled by [facility] because of not getting supporting medical records. No frequent or severe hypoglycemia. I asked patient to call [facility] for prescription on Kisha 2 to be [...] Team Description 12/09/2024 Orders Only [facility] [address] [place] [address] [place] [address] Sushma Arias MD Type 2 diabetes mellitus [...] 11:40 AM EST Office Visit [facility] [address] [place] [address] [place] [address] Sushma Arias MD [address] [place] [address] [email or web address] Health Maintenance Due Date Last Done Comments [...] this topic Medical Devices Implanted Type Area Boat Outfitter Device Identifier Shelf Expiration Date Model / Serial / Lot Knee Wedge Size 3 Plate Bone Tibial Stemmed Nexgen Precoat 03c Cs/1bx/1ea - [id number] Implanted:Qty: 1 on 12/20/2018 by Binu Oliver MD at [facility] NODATA Left: Knee MANJEET / DIV OF Earlier Media 06/30/2028 [id number] / / Knee Stem 145mm 100 Od 14 Ship Boss Tivanium Tibial Solid Screw Primary Straight Impl Nexgen - [id number] Implanted:Qty: 1 on 12/20/2018 by Binu Oliver MD at [facility] STANDARD Left: Knee MANJEET / DIV OF [employer] 05/30/2028 [id number] / / [id number] Knee Implant 3 4 12mm Size Cd 3to4 Femoral Articular Surface Nexgen Lps Flex Fixed 05 - [id number] Implanted:Qty: 1 on 12/20/2018 by Binu Oliver MD at [facility] STANDARD Left: Knee MANJEET / DIV OF [employer]QU[employer] 07/30/2026 [id number] / / [id number] Block Augment 10mm 5448 03 27 Sz Tibial Nexgen Trabecular Metal Rt Lateral Lt Medial - [id number] Implanted:Qty: 1 on 12/20/2018 by Binu Oliver MD at [facility] STANDARD Left: Knee MANJEET / DIV OF Earlier Media 07/01/2023 [id number] / / [id number] Block Augment 10.0mm Size 3 Tibial Nexgen Trabecular Metal Lt Lateral Rt Medial - [id number] Implanted:Qty: 1 on 12/20/2018 by Binu Oliver MD at [facility] STANDARD Left: Knee MANJEET / DIV OF Earlier Media 07/31/2023 [id number] / / [id number] Knee Implant 38x8.5mm Patella Nexgen All Poly Standard 06 - [id number] Implanted:Qty: 1 on 12/20/2018 by Binu Oliver MD at [facility] STANDARD Left: Knee MANJEET / DIV OF Earlier Media 05/30/2026 [id number] / / [id number] Block Augment 5mm Knee Femoral Nexgen Trabecular Metal Distal Size D 19 - [id number] Implanted:Qty: 1 on 12/20/2018 by Binu Oliver MD at [facility] STANDARD Left: Knee MANJEET / DIV OF Earlier Media 03/01/2022 [id number] / / [id number] Block Augment 5mm Knee Femoral Nexgen Trabecular Metal Distal Size D 19 - [id number] Implanted:Qty: 1 on 12/20/2018 by Binu Oliver MD at [facility] STANDARD Left: Knee MANJEET / DIV OF Earlier Media 07/01/2023 [id number] / / [id number] Knee Implant Component Femoral Nexgen Complete Legacy Zimaloy Constrained Condylar Lt Size D Cs/1bx/1ea - [id number] Implanted:Qty: 1 on 12/20/2018 by Binu Oliver MD at [facility] STANDARD Left: Knee MANJEET / DIV OF Earlier Media 05/02/2028 [id number] / / [id number] Knee Stem 200mm 155 Od 13 Ship Boss Tivanium Tibial Solid Screw Primary Straight Impl Nexgen - [id number] Implanted:Qty: 1 on 12/20/2018 by Binu Oliver MD at [facility] STANDARD Left: Knee MANJEET / DIV OF [facility] 11/30/2022 [id number] / / [id number] Knee Implant 12mm Size 3 Component Articular Surface Nexgen Uhmwpe Lcck Cd Bx/1ea - [id number] Implanted:Qty: 1 on 07/04/2021 by Binu Oliver MD at [facility] STANDARD Left: Knee MANJEET / DIV OF [facility] [id number] 05/31/2027 [id number] / / [id number] Left Tkr Cement Bone 40gr Palacos R And G Gentamicin Radiopaque Deangelo/1ea - [id number] Implanted:Qty: 2 on 12/20/2018 by Binu Oliver MD at [facility] Left: Knee MANJEET / DIV OF [facility] 05/30/2021 [id number] / / [id number] Procedures Procedure Name Priority Date/Time Associated Diagnosis [...] EDT) SODIUM 139 133 - 146 mmol/L [facility] POTASSIUM 3.5 3.3 - 5.1 mmol/L [facility] CHLORIDE 104 96 - 108 mmol/L [facility] CO2 21 21 - 35 mmol/L [facility] BUN 12 6 - 19 mg/dL [facility] CREATININE 1.10 0.5 - 1.5 mg/dL [facility] GLUCOSE 88 70 - 99 mg/dL [facility] ALBUMIN 4.0 3.9 - 4.8 g/dL [facility] TOTAL PROTEIN 7.6 6.5 - 8.0 g/dL [facility] CALCIUM 10.0 8.4 - 10.3 mg/dL [facility] ALKALINE PHOSPHATASE 114 39 - 117 U/L [facility] TOTAL BILIRUBIN 0.3 0.0 - 1.2 mg/dL [facility] AST 22 0 - 37 U/L [facility] ALT 8 0 - 40 U/L [facility] GLOBULIN 3.6 1 - 4.8 g/dL [facility] EGFR 51(L) >59 mL/min/1.7 3m2 [facility] Comment:Estimated glomerular filtration rate calculated using the CKD-EPI refit equation. ANION GAP 18 10 - 20 mmol/L [facility] Blood 11/05/2024 12:2 9 PM EDT 11/05/2024 12:45 PM EDT us Sushma Arias MD LAB BLOOD BKR ORDERABLES Final Result [address] [address] * (ABNORMAL) Hemoglobin A1c (06/10/2024 10:06 AM EDT) HEMOGLOBIN A1C 7.2(H) 4.3 - 5.8 % [facility] Blood 06/10/2024 10:0 6 AM EDT 06/10/2024 10:14 AM EDT us Jany Trevino PA-C LAB BLOOD BKR JACOBO LACKEY Final Result [address] [address] from Last 3 Months or Most Recently Relevant to Health Maintenance Insurance [facility] MED[facility] REPLACEMENT [facility] MEDICARE REPLACEMENT [facility] MEDICARE REPLACEMENT [facility] MEDICARE [facility]PLACEMENT [facility] MEDICARE REPLACEMENT [facility] MEDICARE [facility]PLACEMENT [facility] MEDICARE REPLACEMENT [facility] MEDICARE REPLACEMENT [facility] MEDICARE REPLACEMENT Advance Directives For more information, please contact: [phone] (9AM - 5PM [facility], Sunday-Sunday) Documents on File Type Date Recorded Patient Cnc Wood Lathe Operator Expl anation Healthcare Proxy 12/18/2018 HEALTH [...] Agent (Proxy form on file) Care Teams Ehs Specialist Relationship Specialty Start Date End Date Ry Soriano MD [address] [place] [address] PCP - General Internal Medicine 07/29/18 Additional Source Comments The information contained in this document represents components of the legal health record. It is not the complete legal health record.[facility]
== END 2025-03-03 10:46 | disposition home or self-care (01) ==
LOC: HO.HMCH 09:53
PROVIDERS: PCP Internal Medicine; Visit Provider Internal Medicine
DX: E11.65 Type 2 diabetes mellitus with hyperglycemia (principal); Z79.4 Long term (current) use of insulin; I10 Essential (primary) hypertension; E78.00 Pure hypercholesterolemia, unspecified; I25.10 Atherosclerotic heart disease of native coronary artery without angina pectoris; I73.9 Peripheral vascular disease, unspecified; E66.9 Obesity, unspecified; M25.561 Pain in right knee; K92.2 Gastrointestinal hemorrhage, unspecified

== ENCOUNTER → 2025-03-03 09:52 | Outpatient (BNVA) | payer OTHER, SELFPAY | PROVIDERS: PCP Internal Medicine; Visit Provider Internal Medicine | DX: E11.51 Type 2 diabetes mellitus with diabetic peripheral angiopathy without gangrene (principal); E11.65 Type 2 diabetes mellitus with hyperglycemia; I10 Essential (primary) hypertension; M17.11 Unilateral primary osteoarthritis, right knee; E78.00 Pure hypercholesterolemia, unspecified; I25.10 Atherosclerotic heart disease of native coronary artery without angina pectoris; E66.9 Obesity, unspecified; D64.9 Anemia, unspecified; K92.2 Gastrointestinal hemorrhage, unspecified; R05.3 Chronic cough; K59.00 Constipation, unspecified; R32 Unspecified urinary incontinence; Z79.4 Long term (current) use of insulin | CPT/HCPCS: 83036; 99212 ==

== ENCOUNTER 2025-03-25 08:27 | Outpatient (AMB) | payer OTHER, SELFPAY ==
--- OUTSIDE RECORDS SUMMARY | 2024-08-21 05:45 | XMS_ITS ---
Author Organization [facility] Address [address] [place] [address] Care Team Providers Care Housesmith Name Role Phone Ry Soriano Primary Care Provider Unavailabl Clive Green Unavailable [phone] Encounters Encounter Location Date [facility] [address] [address] 08/21/2024 Clive Vilchis Plan Of Treatment Next Appt Details Provider Name:Clive Vilchis , 05/20/2025 10:45:00 AM, [address] [place] [address], [address], Progress Notes * CROWLEY Lauren BDOB:1945 ( 79 yo F)Acc No.[id number]:08/21/2024 Progress Note Patient: Lauren CHRISTIANSON Provider: Gus Vilchis DPM :1945 A ge:79 Y S ex:Female Date:08/21/2024 Address:[address] [place] [address] [address] [facility] Pcp:Ry Soriano Subjective: * Chief Complaints: * * Medical History: Objective: * Vitals: Assessment: Plan: * Treatment: * Images: * The named appointment provid er may or may not be the originator of this progress note, and it is not deemed complete until electronically signed by the appointment provider. Sign off status: Pending * Provider: Gus Vilchis DPM Date: 0 08/21/2024 Generated for Ollie lea/Syibl on: 1 05/26/2024 08:30 AM EST
--- OUTSIDE RECORDS SUMMARY | 2025-03-20 23:59 | XMS_ITS | Continuity of Care Document ---
Author Organization [facility] Address [address] [place] [address]- Care Team Providers Care Radiotelephone Technical Operator Name Role Phone Ry Soriano MD Primary Care Physician Encounter [facility] Date(s): 02/18/25 - 03/20/25 [facility] [address] [place] [address]- Encounter Type: Triage Allergies, Adverse Reactions, Alerts No Known Allergies Medications aspirin 81 mg oral delayed release tablet = 81 mg, By Mouth, Daily in AM, # 30 tablet, 0 Refills, Maintenance, 09/24/19 11:12:00 AM EDT, EC Tablet, [facility], 163, cm, 09/24/19 8:25:00 EDT, Height, 86.5, kg, 09/16/19 17:32:00 EDT, Dry Weight Start Date: 09/24/19 Status: Ordered Medication Dispense Status: Completed Quantity: 30.0 Unit: tablet Total Allowed Fills: 1 Fills Dispensed: 0 atorvastatin 80 mg oral tablet 1 tablet = 80 mg, By Mouth, Daily at bedtime, # 30 tablet, 0 Refills, Maintenance, 09/24/19 11:12:00AM EDT, Tablet, [facility], 163, cm, 09/24/19 8:25:00 EDT, Height, 86.5, kg, 09/15/2016:32:00 EDT, Dry Weight Start Date: 09/24/19 Status: Ordered Medication Dispense Status: Completed Quantity: 30.0 Unit: tablet Total Allowed Fills: 1 Fills Dispensed: 0 clopidogrel 75 mg oral tablet TAKE ONE TABLET BY MOUTH EVERY DAY Start Date: 03/18/25 Status: Ordered Medication Dispense Status: Completed Total Allowed Fills: 1 Fills Dispensed: 0 Insulin Aspart FlexPen 100 units/mL injectable solution INJECT 7 TO 13 UNITS UNDER THE SKIN THREE TIMES DAILY BEFORE MEALS Start Date: 03/18/25 Status: Ordered Medication Dispense Status: Completed Total Allowed Fills: 1 Fills Dispensed: 0 labetalol 100 mg oral tablet = 100 mg, By Mouth, 2 times a day, # 120 tablet, 0 Refills, Maintenance, 02/03/25 2:16:00 PM EST, Tablet, [facility], Partial fill upon patient request if the prescription is for a schedule II opioid drug., 165, cm, 02/03/25 9:45:00 EST, Height, 83.3, kg, 01/31/25 5:50:00 EDT, Dry Weight Start Date: 02/03/25 Stop Date: 04/04/25 Status: Ordered Medication Dispense Status: Completed Quantity: 120.0 Unit: tablet Total Allowed Fills: 1 Fills Dispensed: 0 Lantus Solostar Pen 100 units/mL subcutaneous solution See Instructions, 10-12 units at bedtime Start Date: 03/18/25 Status: Ordered Medication Dispense Status: Completed Total [...] Refills, Maintenance, 09/24/19 11:16:00 AM EDT, Tablet, [facility], 163, cm, 09/24/19 8:25:00 [...] Team Personnel Name: Pamela Castillo RN Position: [facility] RN Member Role: Primary Care Nurse Name: Walter Gresham RN Position: [facility] RN Member Role: Primary Care Nurse Name: Paty Galloway RN Position: [facility] RN Member Role: Primary Care Nurse Name: Jennifer Miramontes RN Position: [facility] SN RN Member Role: Primary Care Nurse Name: Mary Wynne RN Position: [facility] RN Member Role: Primary Care Nurse Name: Esme Burns RN Position: [facility] RN Member Role: Primary Care Nurse Name: Leatha Quevedo RN Position: [facility] [employer] Member Role: Primary Care Nurse Name: Anisha Lane NP Position: [facility] Associate Professional Member Role: Primary Care Nurse Address: [address] [place] [address] [place] [address]- Telecom: Name: Tala Barroso RN Position: [facility] RN Member Role: Primary Care Nurse Name: Zac Willard RN Position: S RN Member Role: Primary Care Nurse Name: Abi Mojica RN Position: S RN Member Role: Primary Care Nurse Name: Ry Soriano MD Position: Reference Physician Member Role: PCP Address: [address] [place] [id number] Telecom: Name: Diana Feng RN Position: S RN Member Role: Primary Care Nurse Name: Abeba Sandhu RN Position: S RN Member Role: Primary Care Nurse Name: Virginia Cleveland LPN Position: S RN Member Role: Primary Care Nurse Name: Cira Gomez RN Position: [facility] RN Member Role: Primary Care Nurse Care Team Related Persons Name: MELIZA MORTENSEN Insurance Providers Guarantor name: ARIANNE MORTENSEN Backplane Plan Information #: 1 Payer: [facility] [employer] Payer Identifier: NA Member Number: [id number] Group Number: [id number] Subscriber Identifier: NA Relationship to Subscriber: self Coverage Type: Medicare Managed Care (Includes Medicare Advantage Plans) Coverage Verification Date: Telecom: NA Address: NA
--- OUTSIDE RECORDS SUMMARY | 2025-03-21 11:00 | XMS_ITS | Continuity of Care Document ---
Author Organization [facility] ter Address [address] [place] [id number]- Care Team Providers Care Color Buffer Name Role Phone Ry Soriano MD Primary Care Physician Encounter [facility] Date(s): 03/18/25 - 03/21/[address] [address]- Discharge Disposition: A-D/C Home Attending Physician: Aletha Jordan MD Admitting Physician: Rosalina Campbell MD Referring Physician: Not on Staff, Referring MD Encounter Type: Disch IP Allergies, Adverse Reactions, Alerts No Known Allergies Functional Status Functional Status Assessment Assessment Assessment Component Result Effecti ve Date Total Falls Risk Score 8 03/20 Functional Status Assessment Assessment Assessment Component Result Effecti ve Thang scale total score 21 Functional Status Assessment Assessment Assessment Component Result Effecti ve Thang scale total score 22 Functional Status Assessment Assessment Assessment Component Result Effecti ve Thang scale total score 20 Functional Status Assessment Assessment Assessment Component Result Effecti ve Date Total Falls Risk Score 5 03/20 Functional Status Assessment Assessment Assessment Component Result Effecti ve Date Total Falls Risk Score 0 03/21 Functional Status Assessment Assessment Assessment Component Result Effecti ve Date Total score [AUDIT] 0 03/18/25 Functional Status Assessment Assessment Assessment Component Result Effecti ve Date Disability status [CUBS] I'm Safe - I rarely have acute or chronic symptoms affecting housing, employment, social interactions, etc. 03/18/25 Difficulty communica ting in usual language No 03/18/25 Difficulty Reading O r Writing No 03/18/25 Do you have difficul ty dressing or bathing No 03/18/25 Because of a physica l, mental, or emotional condition, do you have difficulty doing errands alone such as visiting a physician's office or shopping Yes 03/18/25 Because of a physica l, mental, or emotional condition, do you have serious difficulty concentrating, remembering, or making decisions No 03/18/25 Do you have serious difficulty walking or climbing stairs Yes 03/18/25 Do you need any beverley tional assistance or accommodations during your visit No 03/18/25 Are you deaf, or do you have serious difficulty hearing No 03/18/25 Are you blind, or do you have serious difficulty seeing, even when wearing glasses Yes 03/18/25 Medications amLODIPine 5 mg oral tablet 1 tablet = 5 mg, TAKE ONE TABLET BY MOUTH EVERY DAY Start Date: 03/21/25 Status: Ordered Medication Dispense Status: Completed Total Allowed Fills: 1 Fills Dispensed: 0 aspirin 81 mg oral delayed release tablet = 81 mg, By Mouth, Daily in AM, # 30 tablet, 0 Refills, Maintenance, 09/24/19 11:12:00 AM EDT, EC Tablet, [facility] 3, 163, cm, 09/24/19 8:25:00 EDT, Height, 86.5, kg, 09/16/19 17:32:00 EDT, Dry Weight Start Date: 09/24/19 Status: Ordered Medication Dispense Status: Completed Quantity: 30.0 Unit: tablet Total Allowed Fills: 1 Fills Dispensed: 0 atorvastatin 80 mg oral tablet 1 tablet = 80 mg, By Mouth, Daily at bedtime, # 30 tablet, 0 Refills, Maintenance, 09/24/19 11:12:00AM EDT, Tablet, [facility] 3, 163, cm, 09/24/19 8:25:00 EDT, [...] Total Allowed Fills: 1 Fills Dispensed: 0 lisinopril 20 mg oral tablet 20 mg, Tablet, By Mouth, 03/21/25 9:00:00 AM EST Start Date: 03/21/25 Stop Date: 03/21/25 Status: Completed Medication Dispense Status: Completed Total Allowed Fills: [...] By Mouth, Daily, before a meal, # 90 capsule, 1 Refills, Maintenance, 03/21/25 9:27:00 AM EST, EC Capsule, [id number], Partial fill upon patient request if the prescription is for a schedule II opioid drug., 163, cm, 03/21/25 3:32:00 EST, Height, 84.5, kg, 03/18/25 17:33:00 EST, Dry Weight Start Date: 03/21/25 Status: Ordered Medication Dispense Status: Completed Quantity: 90.0 Unit: capsule Total Allowed Fills: 2 Fills Dispensed: 0 Potassium Chloride (Eqv-K-Tab) 20 mEq oral tablet, extended release 1 tablet = 20 mEq, By Mouth, Daily, # 60 tablet, 0 Refills, Maintenance, 03/21/25 9:29:00 AM EST, ER Tablet, [facility], Partial fill upon patient request if the prescription is fora schedule II opioid drug., 163, cm, 03/21/25 3:32:00 EST, Height, 84.5, kg, 03/18/25 17:33:00 EST,Dry Weight Start Date: 03/21/25 Status: Ordered Medication Dispense Status: Completed Quantity: 60.0 Unit: tablet Total Allowed Fills: 1 Fills Dispensed: 0 Toprol XL 25 mg oral tablet, extended release 25 mg, 1, tablet, By Mouth, Daily, # 90 tablet, Refills 1, Tot. Refills 1, Maintenance, 03/21/25 9:27:00 AM EST, Route to Pharmacy Electronically, [id number], Partial fill upon patient request if the prescription is for a schedule II opioid drug., 163, cm, 03/21/25 3:32:00 EST, Height, 84.5, kg, 03/18/25 17:33:00 EST, Dry Weight Start Date: 03/21/25 Status: Ordered Medication Dispense Status: Completed Quantity: 90.0 Unit: tablet Total Allowed Fills: 2 Fills Dispensed: 0 torsemide 20 mg oral tablet 0.5 tablet = 10 mg, By Mouth, Daily, # 30 tablet, 0 Refills, Maintenance, 03/21/25 9:23:00 AM EST, Tablet, Partial fill upon patient request if the prescription is for a schedule II opioid drug. Start Date: 03/21/25 Status: Ordered Medication Dispense Status: Completed Quantity: 30.0 Unit: tablet Total Allowed Fills: 1 Fills Dispensed: 0 Mental Status Mental Status Assessment Assessment Assessment Component Result Effecti ve Date Ida coma score total 15 Mental Status Assessment Assessment Assessment Component Result Effecti ve Date Ida coma score total 15 Mental Status Assessment Assessment Assessment Component Result Effecti ve Date [place] coma score total 15 Problem List Condition Confirmation Course Effective Dates [...] 2) Confirmed Active Umbilical hernia Confirmed Active Results Radiology Reports * Exam Date Time Procedure Performing Provider Status 03/20/25 12:27 PM NM Gastrointestinal Bleed Scan Auth (Verified) Notes: (NM Gastrointestinal Bleed Scan) Reason For Exam: Melena RESULT: NM Gastrointestinal Bleed Scan EXAM: NM Dynamic tagged red blood cell scan HISTORY: Melanoma, active bleeding. TECHNIQUE: The patient's red cells were radiolabelled with 25.9 mCi Tc99m pertechnetate and stannous chloride using the in vitro technique. Following the intravenous re-injection of the tagged red cells, dynamic imaging of the abdomen and pelvis was performed at 3 seconds per frame for one minute and one minute per frame for 90 minutes in the anterior view. COMPARISON STUDIES: None FINDINGS: Physiologic blood pool activity is consistent with an adequate labeling process. There are no foci of activity which appear and move to suggest active gastrointestinal bleeding. Scintigraphy can detect bleeding rates as low as 0.1 to 0.35 ml per minute. IMPRESSION: No active GI bleeding identified during the time of the exam. WSN: [id number] Ordering Physician: Aletha Jordan Dictated By: Van Akhtar MD Dictated Date/Time: 03/20/25 12:00 p Reviewed By: Van Akhtar MD Signed By: Van Akhtar MD Signed Date/Time: 03/20/25 12:00 pm Transcribed By: HELDER Transcribed Date/Time: 03/20/25 11:59 am * Exam Date Time Procedure Performing Provider Status 03/19/25 3:09 AM Abdomen AP Auth (Verif ied) Notes: (Abdomen AP) Reason For Exam: retained capsule?;Other: RESULT: XR Abdomen AP XR Abdomen AP 1 view INDICATION/CLINICAL QUESTION: Reason: Other:; retained capsule?; Clinical Question(s): Other: COMPARISON: CT 01/18/2025 FINDINGS: Supine AP view. Nonspecific nonobstructive bowel gas pattern. No significant retention of stool. No evidence of pneumoperitoneum. No organomegaly, masses or calcifications. No acute bone findings. IMPRESSION: No ingested foreign body is visualized. Nonspecific nonobstructive bowel gas pattern. WSN: [id number] Ordering Physician: Nava Smith Dictated By: Van Owen MD Dictated Date/Time: 03/19/25 2:28 pm Reviewed By: Van Owen MD Signed By: Van Owen MD Signed Date/Time: 03/19/25 2:28 pm Transcribed By: HELDER Transcribed Date/Time: 03/19/25 2:28 pm * Exam Date Time Procedure Performing Provider Status 03/18/25 9:52 PM US Doppler Ext Lower Venous Bilat Auth (Verified) Notes: (US Doppler Ext Lower Venous Bilat) Reason For Exam: Pain/Tenderness Extremities RESULT: US Doppler Ext Lower Venous Bilat US Doppler Ext Lower Venous Bilat Reason: Pain Tenderness Extremities; Clinical Question(s): Thrombosis. COMPARISON: Right lower extremity duplex ultrasound 08/20/2023. IMAGING TECHNIQUE: Ultrasound of the veins from the groin through the calf was performed using grayscale, color, and spectral Doppler ultrasound assessing for complete compressibility and normal flowcharacteristics. FINDINGS: RIGHT LOWER EXTREMITY: Common femoral vein: Patent. No thrombosis. Femoral vein: Patent. No thrombosis. Popliteal vein: Patent. No thrombosis. Gastrocnemius veins: The visualized portions are patent without evidence of thrombosis. Peroneal veins: The visualized portions are patent without evidence of thrombosis. Posterior tibial veins: The visualized portions are patent without evidence of thrombosis. LEFT LOWER EXTREMITY: Common femoral vein: Patent. No thrombosis. Femoral vein: Patent. No thrombosis. Popliteal vein: Patent. No thrombosis. Gastrocnemius veins: The visualized portions are patent without evidence of thrombosis. Peroneal veins: The visualized portions are patent without evidence of thrombosis. Posterior tibial veins: The visualized portions are patent without evidence of thrombosis. OTHER FINDINGS: Scattered atherosclerotic plaque. IMPRESSION: No evidence of deep venous thrombosis. WSN: [id number] Ordering Physician: Nava Smith Dictated By: Binu Corona MD Dictated Date/Time: 03/19/25 10:25 a Reviewed By: Binu Corona MD Signed By: Binu Corona MD Signed Date/Time: 03/19/25 10:25 am Transcribed By: HELDER Transcribed Date/Time: 03/19/25 8:12 am * Exam Date Time Procedure Performing Provider Status 03/18/25 12:23 AM Chest 2 Views Frontal and Lat Auth (Verified) Notes: (Chest 2 Views Frontal and Lat) Reason For Exam: Chest Pain;Other: RESULT: Chest 2 Views Frontal and Lat Chest 2 Views Frontal and Lat Hx of Present Illness: Pt is coming from home with c o SOB x 3 weeks while standing or walking. Pt started to feel nausea nad vomited after eating. Pt was here for GI bleed recently, still having black stools; Reason: Other:; Chest Pain; Clinical Question(s): Other: COMPARISON: 01/31/2025 FINDINGS: LINES AND TUBES: None. LUNGS AND PLEURA: Clear lungs. Normal pulmonary vascularity. No evidence of pleural effusion. No pneumothorax. HEART, MEDIASTINUM AND NATALYA: Heart is normal in size. Normal mediastinal and hilar contour. BONES AND SOFT TISSUES: No acute abnormality. Status post median sternotomy. IMPRESSION: No evidence of acute abnormality. WSN: [id number] Ordering Physician: Fortino Vergara Dictated By: Van Akhtar MD Dictated Date/Time: 03/18/25 12:00 p Reviewed By: Van Akhtar MD Signed By: Van Akhtar MD Signed Date/Time: 03/18/25 12:00 pm Transcribed By: HELDER Transcribed Date/Time: 03/18/25 6:20 am Vital Signs Most recent to oldest [Reference Range]: 1 2 3 Height 163 cm (03/21/25 3:32 AM) 163 cm (03/20/25 11:52 PM) 163 cm (03/20/25 11:21 PM) Weight 85 kg (03/19/25 10:31 AM) 84.5 kg (03/18/25 8:02 AM) 84.5 kg (03/18/25 8:01 AM) Oxygen Saturation [94-100 %] 95 % (03/21/25 8:00 AM) 95 % (03/21/25 3:32 AM) 95 % (03/20/25 11:52 PM) Pulse Rate [55-90 bpm] 88 bpm (03/21/25 8:00 AM) 82 bpm (03/21/25 3:32 AM) 96 bpm *H* (03/20/25 11:21 PM) Body Mass Index [18.5-24.99 kg/m2] 31.8 kg/m2 *H* (03/18/25 8:02 AM) 31.8 kg/m2 *H* (03/18/25 8:01 AM) 31.8 kg/m2 *H* (03/17/25 9:25 PM) Blood Pressure [90-138/55-84 mm Hg] 150/68mm Hg *H* (03/21/25 8:53 AM) 150/68mm Hg *H* (03/21/25 8:00 AM) 132/56mm Hg (03/21/25 3:32 AM) Respiratory Rate [16-30 br/min] 18 br/min (03/21/25 8:00 AM) 18 br/min (03/21/25 3:32 AM) 18 br/min (03/20/25 11:21 PM) Temperature [96.8-100.4 DegF] 97.3 DegF (03/21/25 8:00 AM) 97.9 DegF (03/21/25 3:32 AM) 97.2 DegF (03/20/25 11:21 PM) Liters per Minute 2 L/min (03/21/25 3:32 AM) 2 L/min (03/20/25 11:52 PM) 2 L/min (03/20/25 7:29 PM) Mode of Delivery (Oxygen) Room air (03/21/25 8:00 AM) Nasal cannula (03/21/25 3:32 AM) Nasal cannula (03/20/25 11:52 PM) Blood pressure sites Arm, right (03/21/25 8:00 AM) Arm, right (03/21/25 3:32 AM) Arm, right (03/20/25 11:21 PM) Temperature Route Oral (03/21/25 8:00 AM) Oral (03/21/25 3:32 AM) Oral (03/20/25 11:21 PM) Dry Weight 84.5 kg (03/18/25 11:03 AM) 84.5 kg (03/18/25 8:02 AM) 84.5 kg (03/18/25 8:01 AM) Weight Obtained Via Standing scale (03/17/25 9:25 PM) Dry Weight Obtained Via Standing scale (03/17/25 9:25 PM) Social History Social History Type Response Sexual Sexually involved in last 6 months: No. Smoking Status Former smoker, quit more than 30 days ago; Other: quit about 10 years ago; entered on: 11/21/21 Sex Sex Representation Female (finding) Status N/A Social Determinants of Health Assessment Assessment Assessment Component Result Effecti ve Date Unspecifed Social Determinants of Health Assessment How often do you see or talk to people that you care about and feel close to [PRAPARE] 6 or more times a week 12/17/25 Do you feel physical ly and emotionally safe where you currently live [PRAPARE] Yes 03/18/25 Have you or any fami ly members you live with been unable to get any of the following when it was really needed in past 1 year [PRAPARE] None 03/18/25 Has lack of transpor tation kept you from medical appointments, meetings, work, or from getting things needed for daily living No 03/18/25 Are you worried abou t losing your housing [PRAPARE] Yes 03/18/25 Housing status I have housing 03/18/25 Within the last year , have you been afraid of your partner or ex-partner I have not had a partner in the past year 03/18/25 Admission evaluation note * Nava Smith MD: PERFORM, MODIFY Event Display: Admission Note Authored Date: [id number] Patient: ??KEO, LAUREN ? Age:??79 Years?Sex:??Female?:??1945?LOC:??[facility]?? Chief Complaint/Reason for Consultation Pt is coming from home with c/o SOB x 3 weeks while standing or walking. Pt started to feel nausea nad vomited after eating. Pt denies CP, fevers, SOB. History of Present Illness Lauren Keo is a 79yoF with PMHx of??DM, HTN, CAD s/p CABG,??history of GI bleed admitted on 03/18 for symptomatic anemia in the setting of GI bleed.? Patient was hospitalized from 01/18/2025 to 01/20/2025, EGD showed angiectasia of the duodenum of unclear significance. She did undergo a colonoscopy on 01/30/2025 which showed diffuse melena, with likely source above the ileum. It appears a small AVM was found and cauterized.?? Pt was recently hospitalized from 01/31/2025 to 02/03/2025 for a type II NSTEMI in the setting of acute on chronic blood loss anemia due to GI bleed. Push??enteroscopy did not show any source of bleeding, and CT enterography also did not show any acute bleeding vessel.?? Plan was for capsule endoscopy outpatient which showed a normal esophagus and stomach but there was food in the small bowel so unable to tell if there was a source of bleeding there. ?? Vitals notable for no fever, regular heart rate, normal to high blood pressures (systolic 150), initially on room air, then placed on 2 L nasal cannula for an unknown reason.?? No documented hypoxia in the chart.?? Labs notable for no leukocytosis, hemoglobin of 5.9, microcytic to 75, normal platelets.?? INR 1.1, PT slightly high at 11.5, PTT slightly low at 22.8.?? Blood type is O+ antibody negative, getting 1 unit of transfusion.?? BMP notable for potassium low at 3.5, bicarb low at 20, glucose 180, BUN 34, creatinine 1.28.?? proBNP was 1410, troponin was 16, 15.?? Patient received Tylenol,Robitussin.?? Baseline creatinine appears to be around 1.2 to 1.4.?? Baseline hemoglobin appears jovita around 8.?? Chest x-ray without acute abnormalities. ?? On evaluation, patient states that she was having midsternal chest pain??especially with exertion??for the last 4 days.?? On the day of presentation, she was unable to??walk even a few steps without chest pain or shortness of breath. ??She also states that she has been feeling more fatigued.?? She says that she did have some??dark stools last week, but says that they have become more brown in color recently.?? Of note she did have an episode of dark vomiting when she was in the emergency room.?? She says that she has not been eating and drinking like her typical self, and has actually lost? ?about 20 pounds over the course of??her problems with this GI bleeding.?? Of note family reports that she had had some type of vein opening procedure ??at the beginning of the fall,??after which was found that her veins?? closed up again ??and she has since had issues.?? Patient also says that she has had a chronic cough for some time now, but has worsened since the EGD.?? She denies any??fevers, chills, diarrhea, rash, hematuria, dysuria.?? She also reports right chronic knee pain,??she was told to have surgery but does not want to undergo any more surgeries. Review of Systems General:??+fatigue HEENT:??Negative for congestion, rhinorrhea, sore throat Cardiovascular:??+chest pain Respiratory:??+shortness of breath Gastrointestinal: +dark??stools,??Negative for abdominal pain,??diarrhea/constipation Genitourinary:??Negative for dysuria, hematuria Neurologic:??Negative for headache, dizziness, syncope Skin:??Negative for rashes or lesions Objective Measurements?? Height: 163 cm (03/18/25) Weight: 84.5 kg (03/18/25) Dry Weight: 84.5 kg (03/18/25) Body Mass Index:??31.8 kg/m2??High (03/18/25) ?? Vital Signs?? Temperature: 98.3 DegF (03/18/25 19:52:00) Temperature Route: Oral (03/18/25 19:52:00) Pulse Rate: 86 bpm (03/18/25 19:52:00) Respiratory Rate: 20 br/min (03/18/25 19:52:00) Systolic Blood Pressure:??154 mm Hg??High (03/18/25 19:52:00) Diastolic Blood Pressure: 75 mm Hg (03/18/25 19:52:00) Blood pressure sites: Arm, left (03/18/25 19:52:00) Mean Arterial Pressure: 101 mm Hg (03/18/25 19:52:00) Pulse Pressure: 79 mm Hg (03/18/25 19:52:00) Oxygen Saturation: 96 % (03/18/25 19:52:00) Liters per Minute: 2 L/min (03/18/25 13:13:00) Mode of Delivery (Oxygen): Room air (03/18/25 19:52:00) Early Warning Score: 0 (03/18/25 19:57:11) ?? Physical Exam General:??Elderly female. In no distress. Head: NCAT. Scalp without any lesions. Eyes: Pale conjunctiva. Anicteric sclera. Ears: Bilateral pinnae without discharge or lesions. Nose:?? No discharge or congestion. Throat/Mouth: MMM. Oral mucosa was pink and without any lesions. Cardiovascular: Physiologic S1 and S2. No murmurs, rubs or gallops could be auscultated. Respiratory: CTA bilaterally with good inspiratory effort and symmetric chest wall movement. No wheezes, rales, or rhonchi. Abdominal: Abdomen is??soft and non-distended. Positive bowel sounds in all four quadrants. No tenderness to palpation.?? Musculoskeletal: Moving all 4 extremities equally. Some tenderness to palpation of the lower extremities.?? Vascular: Radial pulses are 2+??bilaterally. No peripheral edema. Neurologic: Awake, alert, interactive. No focal neurologic deficits.?? Assessment/Plan Diagnoses CAD (coronary artery disease) ??(I25.10) CKD (chronic kidney disease) ??(N18.9) Chronic cough ??(R05.3) Diabetes ??(E11.9) GI (gastrointestinal bleed) ??(K92.2) HTN (hypertension) ??(I10) Heart failure, chronic, right-sided ??(I50.812) Hyperthyroidism ??(E05.90) Vascular disease ??(I99.9) ?? Assessment:??Lauren Crowley is a 79yoF with PMHx of??DM, HTN, CAD s/p CABG,??history of GI bleed admitted on 03/18 for symptomatic anemia in the setting of GI bleed.? GI (gastrointestinal bleed) (K92.2):??Pt presenting with??anemia of 5.9 with symptoms of chest pain, shortness of breath, and fatigue which has been an ongoing issue for about 2 months.?She has had??an EGD, colonoscopy,??CT enterography,??push endoscopy, capsule endoscopy??in the last 2 months.??One of the??imaging did show a small??AVM that was cauterized.??Most likely she is having small bowel bleeding??that has been difficult to capture.??Currently, she is hemodynamically stable is no longer having dark or??red stools??so it is less likely that she is acutely bleeding to??make CT angio??high-yield to obtain at this point. - GI consult,??extensive conversation with patient regarding what her next apps are,??as she is currently??not exhibiting signs of acute bleeding, will forego CT angio especially in the setting of her CKD.??Will monitor her on clear liquid diet??and assess what her hemoglobins are??after transfusion to determine next apps. - KUB per GI??to ensure capsule is passed - Clear liquid diet - Monitor H/H - IV pantoprazole?? - Iron studies? CAD (coronary artery disease) (I25.10):??Patient did come in with chest pain, troponins are 16, butare lower than previous admission when she had the type II NSTEMI.??EKG is??reassuring against ischemic changes.??Her chest pain is most likely secondary to her acute blood loss anemia.?? - Clopidogrel was paused??on her last discharge but??there was miscommunication and the daughter continued this medication - We did have extensive conversation regarding the risks and benefits of clopidogrel notably??risk of recurrent heart attack or stroke versus GI bleed - Will hold clopidogrel for now, will touch base with cardiology regarding??if and when it would besafe to stop this medication - Continue atorvastatin and aspirin? Vascular disease (I99.9):??Unclear??what??vascular procedure she really had??and what it means thather veins were closed again .??Her family member who is a nurse??is very concerned about this.??Asshe is having some??pain in her legs, though no asymmetry,??and has been more immobile, it would make sense to check for DVT.??She is not tachycardic or hypoxic,??which makes PE less likely, though??would need to be vigilant regarding this??serious condition. -??Doppler ultrasound??of the bilateral lower extremities ?? Chronic cough (R05.3):??Patient with chronic cough, no pneumonia on??imaging. - Outpatient PFTs due to smoking history?? - Lozenges??while inpatient to address??what is most likely irritation??after EGD ?? CKD (chronic kidney disease) (N18.9):??On overview of Cr in the past year, baseline appears to be around 1.2-1.4.?Appears to be around her baseline now.??Will need to have conversation regarding her CKD??if a CT angio??needs to be obtained. ?? Diabetes (E11.9):??Has history of diabetes, is on basal bolus??insulin at home.??Will decrease doses while she is here and on a clear liquid diet. - Lantus 20U nightly?? - Lispro 5-13??TID - Hypoglycemia measures? HTN (hypertension) (I10):??Was on lisinopril (held for??LARISSA in the??past) and amlodipine in the past,??discharged on labetalol during prior admission. Kidney function at baseline. - Will restart lisinopril for kidney protection in the setting of??CKD, diabetes.? Heart failure, chronic, right-sided (I50.812):??BNP slightly high, but euvolemic on exam.?? Continue??torsemide? Blood transfusions given at slower rate due to concern for volume overload. ?? Hyperthyroidism (E05.90):??Continue methimazole? Quality Measures DVT PPx: Pneumo boots?? Code Status: Full?? Diet: CLD, advance as tolerated?? HCP: More, updated by phone on 03/18,??other family members updated at bedside on 03/18? Patient seen and discussed with Attending, Dr. Campbell? Nava Smith MD PGY-4, Internal Medicine-Pediatrics Pager [phone], [employer]? Histories Allergies Allergies ?(Active and Proposed Allergies Only) NKA? (Severity: Unknown severity, Onset: Unknown) ?? Past Medical History/Problem List Active Problems(13) Coronary artery disease Coronary artery disease involving coronary bypass graft DM2 (diabetes mellitus, type 2) Follow-up examination after gynecological surgery GERD (gastroesophageal reflux disease) HLD (hyperlipidemia) HTN (hypertension) Knee pain, bilateral Neuropathic pain of left lower extremity Obese class I Obesity Osteoarthritis Umbilical hernia ?? Past Surgical History Colonoscopy, flexible; diagnostic, including collection of specimen(s) by brushing or washing, whenperformed (separate procedure): 01/30/25 Robotic-assisted total laparoscopic hysterectomy and bilateral salpingo- oophorectomy: 12/26/21 Joint replacement: 2020 CABG x 3 - Coronary artery bypass grafts x 3 Umbilical hernia ?? Social History Alcohol Details:??Use: Past. Exercise Details:??Self assessment: Poor condition. Home/Environment Details:??Living situation: Home/Independent. ??Lives with: daughter and grandaughter . Nutrition/Health Details:??Diet: Regular. Sexual Details:??Sexually involved in last 6 months: No. Substance Abuse Details:??Use: Never. Tobacco Details:??Use: Former smoker, quit more than 30 days ago. ??Other: quit about 10 years ago. ?? Family History Mother: Arthritis; Hypertension Father??(): Stroke Brother??(): Cancer of colon; Diabetes mellitus Medications Home Medications Aspirin (aspirin 81 mg oral delayed release tablet)??81 Milligram By Mouth Daily in AM Atorvastatin (atorvastatin 80 mg oral tablet)??1 tab(s) 80 Milligram By Mouth Daily at bedtime Clopidogrel (clopidogrel 75 mg oral tablet)??TAKE ONE TABLET BY MOUTH EVERY DAY Insulin Aspart (Insulin Aspart FlexPen 100 units/mL injectable solution)??INJECT 7 TO 13 UNITS UNDER THE SKIN THREE TIMES DAILY BEFORE MEALS Insulin Glargine (Lantus Solostar Pen 100 units/mL subcutaneous solution)??See Instructions 10-12 units at bedtime Labetalol (labetalol 100 mg oral tablet)??100 Milligram By Mouth 2 times a day for 60 Days Methimazole (methimazole 5 mg oral tablet)??5 Milligram 1 tablet By Mouth Daily Omeprazole (omeprazole 40 mg oral enteric coated capsule)??1 capsule 40 Milligram By Mouth Daily before a meal torsemide (torsemide 20 mg oral tablet)??0.5 tab(s) 10 Milligram By Mouth Daily before breakfast ?? Inpatient Medications Medications (22) Active SCHEDULED: (9) Aspirin 81 mg EC Tablet (aspirin 81 mg oral delayed release tablet) ??81 mg, By Mouth, Daily in AM Atorvastatin 80 mg Tablet (atorvastatin 80 mg oral tablet) ??80 mg, By Mouth, Daily at bedtime Insulin Glargine 100 units/mL Inj (Insulin Glargine Inj) ??20 units 0.2 mL, Subcutaneous Injection,Daily at bedtime Insulin Lispro 100 units/mL Inj (Insulin LISPRO Sliding Scale) ??5-13 units, Subcutaneous Injection, 3 times a day before meals Lisinopril 20 mg Tablet (lisinopril 20 mg oral tablet) ??20 mg, By Mouth, Daily Methimazole 10 mg Tablet (methimazole 10 mg oral tablet) ??5 mg, By Mouth, Daily NaCl 0.9% Flush 3ml (NaCL 0.9% Flush) ??3 mL, IV Push, Every 8 hours Pantoprazole 40 mg Inj (Pantoprazole Inj) ??40 mg, IV Push Slowly, Every 12 hours Torsemide 20 mg tablet (torsemide 20 mg oral tablet) ??10 mg 0.5 tablet, By Mouth, Daily before breakfast CONTINUOUS: (0) PRN: (13) Acetaminophen 325 mg Tablet (Acetaminophen Tablet) ??650 mg, By Mouth, Every 4 hours Chloraseptic Lozenge ??1 lozenge, By Mouth, Every 3 hours Dextromethorphan-Guaifenesin 20 mg-200 mg/10 mL Liqu UD (Robitussin DM Liquid) ??10 mL, By Mouth, Every 4 hours Dextrose Inj Syringe (Dextrose 50% Inj Syringe (25Gm)) ??12.5 Gm, IV Push Slowly, Every 20 minutes Dextrose Inj Syringe (Dextrose 50% Inj Syringe (25Gm)) ??25 Gm, IV Push Slowly, Every 15 minutes Glucagon 1 mg Inj (Glucagon Inj) ??1 mg, Intramuscular, Once Glucose 40% Gel (15 Gm) (Glucose Gel) ??15 Gm, By Mouth, Every 20 minutes Glucose 40% Gel (15 Gm) (Glucose Gel) ??30 Gm, By Mouth, Every 20 minutes Melatonin 3 mg Tablet (Melatonin Tablet) ??3 mg, By Mouth, Daily at bedtime NaCl 0.9% Flush 3ml (NaCL 0.9% Flush) ??3 mL, IV Push, Every 8 hours Polyethylene Glycol 17 Gm Powder (MiraLax Powder) ??17 Gm 1 pack/packet, By Mouth, Daily Senna Tablet ??8.6 mg 1 tablet, By Mouth, 2 times a day Simethicone 80 mg Chewable Tablet (Simethicone Tablet) ??80 mg, Chew, 3 times a day Results Recent Labs BLOOD BANK Blood Type O Positive ()?? 03/17/2025 23:34 Antibody Screen Negative ()?? 03/17/2025 23:34 RBC Unit ID [id number] ()?? 03/18/2025 11:30 RBC Available IS ()?? 03/18/2025 11:30 ?? BLOOD COUNT & DIFF WBC 10.4 k/mm3 ()?? 03/17/2025 22:36 RBC 2.68 m/mm3 (Low)?? 03/17/2025 22:36 Hgb 6.7 Gm/dL (Low)?? 03/18/2025 10:09 Hct 21.4 % (Low)?? 03/18/2025 10:09 MCV 75.0 femtoliters (Low)?? 03/17/2025 22:36 MCH 22.0 pg (Low)?? 03/17/2025 22:36 MCHC 29.4 Gm/dL (Low)?? 03/17/2025 22:36 Platelet Count 343 k/mm3 ()?? 03/17/2025 22:36 RDW-SD 54.1 femtoliters (High)?? 03/17/2025 22:36 MPV 10.6 femtoliters ()?? 03/17/2025 22:36 Nucleated RBC (Automated) 0.2 #/100 WBC'S ()?? 03/17/2025 22:36 Abs. NRBC 0.0 k/mm3 ()?? 03/17/2025 22:36 Abs. Neut 7.3 k/mm3 (High)?? 03/17/2025 22:36 Abs. Lymph 2.3 k/mm3 ()?? 03/17/2025 22:36 Abs. [place] 0.6 k/mm3 ()?? 03/17/2025 22:36 Abs. Eo 0.1 k/mm3 ()?? 03/17/2025 22:36 Abs. Baso 0.0 k/mm3 ()?? 03/17/2025 22:36 Neut % 70.3 % ()?? 03/17/2025 22:36 Lymph % 22.2 % ()?? 03/17/2025 22:36 [place] % 5.7 % ()?? 03/17/2025 22:36 Eos % 1.1 % ()?? 03/17/2025 22:36 Baso % 0.1 % ()?? 03/17/2025 22:36 Imm Gran 0.6 % ()?? 03/17/2025 22:36 Abs. Imm Gran 0.1 k/mm3 ()?? 03/17/2025 22:36 ?? CARDIAC Nt-Probnp 1410 pg/mL (High)?? 03/17/2025 22:36 High Sensitivity Troponin (HSTnT) 15 ng/L (High)?? 03/18/2025 02:45 ?? CHEM GENERAL Sodium 140 mmol/L ()?? 03/17/2025 22:36 Potassium 3.4 mmol/L (Low)?? 03/17/2025 22:36 Chloride 106 mmol/L ()?? 03/17/2025 22:36 Bicarbonate Level 20 mmol/L (Low)?? 03/17/2025 22:36 Anion Gap 14 mmol/L ()?? 03/17/2025 22:36 Glucose Level 180 mg/dL (High)?? 03/17/2025 22:36 Glucose, POC 175 mg/dL (High)?? 03/18/2025 16:55 BUN 34 mg/dL (High)?? 03/17/2025 22:36 Creatinine-Blood 1.28 mg/dL (High)?? 03/17/2025 22:36 Estimated GFR Creatinine 43 ML/MIN/1.73 M2 ()?? 03/17/2025 22:36 Calcium 9.7 mg/dL ()?? 03/17/2025 22:36 ?? COAG INR 1.1 ()?? 03/18/2025 00:02 Protime (PT) 11.5 seconds (High)?? 03/18/2025 00:02 APTT 22.8 seconds (Low)?? 03/18/2025 00:02 ?? HEME OTHER Hold Blue Top SPECIMEN DISCARDED AFTER 4 HOURS. ()?? 03/17/2025 22:36 ?? URINE OTHER Est Creatinine Clearance 31.00 mL/min ()?? 03/17/2025 23:15 ? Electronically Signed on 03/18/25 08:51 PM Sarah ARIAS, Nava Electronically Signed on 03/19/25 09:41 AM Shannan ARIAS, Khadar Talavera EKG study * Event Display: ECG 12-Lead Authored Date: Please click on pdf link to open report * Event Display: ECG 12-Lead Authored Date: Ventricular Rate: 80 BPM Atrial Rate: 80 BPM P-R Interval: 186 ms QRS Duration: 90 ms Q-T Interval: 372 ms QTC Calculation(Bazett): 429 ms P [place]: 20 degrees R [place]: 19 degrees T [place]: 178 degrees Sinus rhythm with Premature supraventricular complexes Left ventricular hypertrophy with repolarization abnormality ( [place] product ) Possible Inferior infarct , age undetermined Abnormal ECG When compared with ECG of 31-Jan-2025 03:15, Significant changes have occurred Confirmed by JACK ARIAS [facility] ([id number]) on 03/18/2025 8:11:33 PM [place] * Diana Feng RN: PERFORM, SIGN, VERIFY Event Display: Progress Note Hospital Authored Date: Patient: LAUREN CROWLEY Age: 79 years Sex: Female : 1945 Associated Diagnoses: None Author: Diana Feng RN Findings Evaluation Pt remained stable throughout shift. Supplemental O2 encouraged for O2 90%. Slight ADKINS noted. Lungsclear. Patient denies SOB/difficulty breathing. No pain. Lantus dose adjusted based on HS blood sugar and pt tolerated well. Comfort & safety maintained. Complete assessment per CIS. . Electronically Signed on 03/21/25 07:20 AM Diana Feng RN * Kiki ARIAS, Afia: PERFORM Event Display: Progress [facility] Authored Date: [id number] Patient: ??ALUREN CROWLEY ? Age:??79 Years?Sex:??Female?:??1945?LOC:??[facility]?? 79-year-old lady with a history of CAD s/p CABG, HTN??with multiple prior admissions in the settingof anemia and history of angiectasia in the duodenum.?? Presented with weakness, lethargy??exertional dyspnea??and chest discomfort??with profound anemia Hb 5.9??microcytic.?? No overt signs for GI bl eeding.?? On dual antiplatelet therapy at home with aspirin and Plavix, held currently. ?? Recent GI workup including upper endoscopy??on 01/20/2025 with grade D esophagitis, mild duodenitis, angiectasia in the duodenal bulb. ??Colonoscopy aborted due to poor prep. Colonoscopy repeated 01/30 with melena throughout the entire colon??and TI also with melena in it suggesting??bleed proximal to this likely in the small bowel. Had a push enteroscopy in 02/02/2025??with normal stomach, duodenum and??a small jejunal AVM not accounting for??degree of melena. CT enterography on 02/02/2025??with nonspecific wall thickening in the proximal to mid jejunum. Had a video capsule endoscopy on 02/19??with??inconclusive study??likely due to capsule??retained in stomach??and was planned for repeating??after??ingestion of half prep. ?? Noted concerns yesterday for continued??melenic appearing stool.?This appeared to subside and noloose stools overnight. Labs from 9:30 PM yesterday with Hb 8.0 and from 2 AM 8.0 also.?? BUN 17 ?? Patient had a tagged red cell scan today with no evidence of active GI bleeding Patient seen at bedside with family, appears comfortable at rest. ??Denies any abdominal pain.?? Feels her dyspnea has improved??although currently wearing nasal cannula.?Reports no further black stool today though??loose stools. Keen to go home. Plavix has been discontinued in favor of aspirin monotherapy for now. ?? A/P ?? -??Okay to resume diet. -Can go home from GI standpoint.?? Will arrange outpatient video capsule endoscopy likely for next week GI will sign off, please reach out with any questions ?? This note was typed using Nexeon dictation software. Occasionally, typing errors may occur. Please contact me on [place] if anything requires further clarification. ?? Patient discussed with attending physician, ?? Afia Swanson MD [facility]) Gastroenterology Fellow PGY 6 ?? Electronically Signed on 03/20/25 06:03 PM Kiki ARIAS, Afia Allen MD, Sreekanth Carrillo: PERFORM Event Display: Progress Note Hospital Authored Date: [id number] ?I have reviewed the patient's medical history, findings on examination, diagnosis and treatmentplan as documented in the fellow note. Case and its management discussed with fellow Electronically Signed on 03/20/25 09:02 PM Alejandro ARIAS, Sreekanth Jordan MD, Aletha: PERFORM Event Display: Progress Note Hospital Authored Date: [id number] Patient: ??CROWLEY, LAUREN ? Age:??79 Years?Sex:??Female?:??1945?LOC:??[facility]?? Subjective No acute events Reportedly she had??2-3 episodes of??melena yesterday??and was symptomatic when walking to bathroomwith shortness of breath Discussed with GI team today, underwent??nuclear tagged scan with no any active bleeding Denies any fever, chills, nausea, vomiting I called patient's daughter Aileen and discussed plan of care Review of Systems Negative except above Objective Vital Signs?? Temperature: 99.1 DegF (03/20/25 15:54:00) Temperature Route: Oral (03/20/25 15:54:00) Pulse Rate:? 78 bpm ??(03/20/25 15:54:00) Respiratory Rate: 20 br/min (03/20/25 03:18:00) Systolic Blood Pressure: 128 mm Hg (03/20/25 15:54:00) Diastolic Blood Pressure:??53 mm Hg??Low (03/20/25 15:54:00) Blood pressure sites: Arm, right (03/20/25 15:54:00) Mean Arterial Pressure: 78 mm Hg (03/20/25 15:54:00) Pulse Pressure: 75 mm Hg (03/20/25 15:54:00) Oxygen Saturation: 95 % (03/20/25 15:54:00) Liters per Minute: 2 L/min (03/20/25 15:54:00) Mode of Delivery (Oxygen): Nasal cannula (03/20/25 15:54:00) Early Warning Score: 4 (03/20/25 15:54:58) ? Hemodynamic Measures Hgb:??8 Gm/dL??Low (01:46) ?? Intake/Output? 03/18 02:07 03/20 07:00 03/19 07:00 03/18 07:00 03/17 07:00 ?? 03/20 16:21 03/20 16:21 03/20 06:59 03/19 06:59 03/18 06:59 Intake ? 1362 ?262.5 ?262.5 ?530 ?307 Output ?0 ?0 ?0 ?0 ?0 Net Total ? 1362 ?262.5 ?262.5 ?530 ?307 ? Urine Count ?6 ?0 ?3 ?3 ?0 ? Physical Exam General: Awake, oriented, not in distress HEENT: No pallor, icterus Respiratory:??Normal breath sound.?? No added sound Cardio: NSR no murmur Abd: non tender non distended BS present Ext: no edema Neuro: moving all ext spontaneosuly, no facial droop or slurring of speech _ Inpatient Medications Medications (24) Active SCHEDULED: (11) Aspirin 81 mg EC Tablet (aspirin 81 mg oral delayed release tablet) ??81 mg, By Mouth, Daily in AM Atorvastatin 80 mg Tablet (atorvastatin 80 mg oral tablet) ??80 mg, By Mouth, Daily at bedtime Insulin Glargine 100 units/mL Inj (Insulin Glargine Inj) ??20 units 0.2 mL, Subcutaneous Injection,Daily at bedtime Insulin Lispro 100 units/mL Inj (Insulin LISPRO Sliding Scale) ??5-13 units, Subcutaneous Injection, 3 times a day before meals Iron Sucrose 20 mg/mL (5mL) IVPB (Venofer IVPB) ??250 mg 12.5 mL, IVPB, Daily Lisinopril 20 mg Tablet (lisinopril 20 mg oral tablet) ??20 mg, By Mouth, Daily Methimazole 10 mg Tablet (methimazole 10 mg oral tablet) ??5 mg, By Mouth, Daily Multivitamin Therapeutic / Minerals Tablet (Multivit Therapeutic/Minerals Tablet) ??1 tablet, By Mouth, Daily NaCl 0.9% Flush 3ml (NaCL 0.9% Flush) ??3 mL, IV Push, Every 8 hours Pantoprazole 40 mg Inj (Pantoprazole Inj) ??40 mg, IV Push Slowly, Every 12 hours Torsemide 20 mg tablet (torsemide 20 mg oral tablet) ??10 mg 0.5 tablet, By Mouth, Daily before breakfast CONTINUOUS: (0) PRN: (13) Acetaminophen 325 mg Tablet (Acetaminophen Tablet) ??650 mg, By Mouth, Every 4 hours Chloraseptic Lozenge ??1 lozenge, By Mouth, Every 3 hours Dextromethorphan-Guaifenesin 20 mg-200 mg/10 mL Liqu UD (Robitussin DM Liquid) ??10 mL, By Mouth, Every 4 hours Dextrose Inj Syringe (Dextrose 50% Inj Syringe (25Gm)) ??12.5 Gm, IV Push Slowly, Every 20 minutes Dextrose Inj Syringe (Dextrose 50% Inj Syringe (25Gm)) ??25 Gm, IV Push Slowly, Every 15 minutes Glucagon 1 mg Inj (Glucagon Inj) ??1 mg, Intramuscular, Once Glucose 40% Gel (15 Gm) (Glucose Gel) ??15 Gm, By Mouth, Every 20 minutes Glucose 40% Gel (15 Gm) (Glucose Gel) ??30 Gm, By Mouth, Every 20 minutes Melatonin 3 mg Tablet (Melatonin Tablet) ??3 mg, By Mouth, Daily at bedtime NaCl 0.9% Flush 3ml (NaCL 0.9% Flush) ??3 mL, IV Push, Every 8 hours Polyethylene Glycol 17 Gm Powder (MiraLax Powder) ??17 Gm 1 pack/packet, By Mouth, Daily Senna Tablet ??8.6 mg 1 tablet, By Mouth, 2 times a day Simethicone 80 mg Chewable Tablet (Simethicone Tablet) ??80 mg, Chew, 3 times a day ? Results Recent Labs BLOOD BANK RBC Unit ID [id number] ()?? 03/19/2025 08:33 RBC Available PT ()?? 03/19/2025 08:33 ?? BLOOD COUNT & DIFF WBC 9.4 k/mm3 ()?? 03/20/2025 01:46 RBC 3.15 m/mm3 (Low)?? 03/20/2025 01:46 Hgb 8.0 Gm/dL (Low)?? 03/20/2025 01:46 Hct 25.3 % (Low)?? 03/20/2025 01:46 MCV 80.3 femtoliters ()?? 03/20/2025 01:46 MCH 25.4 pg (Low)?? 03/20/2025 01:46 MCHC 31.6 Gm/dL (Low)?? 03/20/2025 01:46 Platelet Count 274 k/mm3 ()?? 03/20/2025 01:46 RDW-SD 56.7 femtoliters (High)?? 03/20/2025 01:46 MPV 11.0 femtoliters ()?? 03/20/2025 01:46 Nucleated RBC (Automated) 0.2 #/100 WBC'S ()?? 03/20/2025 01:46 Abs. NRBC 0.0 k/mm3 ()?? 03/20/2025 01:46 ?? CHEM GENERAL Sodium 145 mmol/L ()?? 03/20/2025 01:46 Potassium 3.4 mmol/L (Low)?? 03/20/2025 01:46 Chloride 114 mmol/L (High)?? 03/20/2025 01:46 Bicarbonate Level 19 mmol/L (Low)?? 03/20/2025 01:46 Anion Gap 12 mmol/L ()?? 03/20/2025 01:46 Glucose Level 103 mg/dL (High)?? 03/20/2025 01:46 Glucose, POC 88 mg/dL ()?? 03/20/2025 12:47 BUN 17 mg/dL ()?? 03/20/2025 01:46 Creatinine-Blood 1.33 mg/dL (High)?? 03/20/2025 01:46 Estimated GFR Creatinine 41 ML/MIN/1.73 M2 ()?? 03/20/2025 01:46 Calcium 9.4 mg/dL ()?? 03/20/2025 01:46 Phosphorus 2.9 mg/dL ()?? 03/19/2025 00:46 Magnesium 2.2 mg/dL ()?? 03/20/2025 01:46 ?? URINE OTHER Est Creatinine Clearance 29.83 mL/min ()?? 03/20/2025 03:03 ? Assessment/Plan Diagnoses CAD (coronary artery disease) ??(I25.10) CKD (chronic kidney disease) ??(N18.9) Chronic cough ??(R05.3) Diabetes ??(E11.9) GI (gastrointestinal bleed) ??(K92.2) HTN (hypertension) ??(I10) Heart failure, chronic, right-sided ??(I50.812) Hyperthyroidism ??(E05.90) Vascular disease ??(I99.9) ?? Lauren Crowley is a 79yoF with PMHx of??DM, HTN, CAD s/p CABG,??history of GI bleed admitted on 03/18 for symptomatic anemia in the setting of GI bleed.? Acute on chronic anemia GI (gastrointestinal bleed) (K92.2):?? 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 -??Was having melena in the house,??discussed with GI team today,??patient underwent RBC tagged study, no active bleeding -Hemoglobin 8 today, patient feels better -??Status post 1 unit PRBC yesterday along with??IV iron. ??Will give another??IV iron today -Continue with PPI -I discussed with GI fellow today, who recommended patient might be discharged??possibly tomorrow if hemoglobin??and vital stable,??GI team will??set up outpatient capsule study. ??Will inform GI team tomorrow -??Okay to resume diet per GI.?? Diet resumed ? CAD (coronary artery disease) (I25.10):??Patient did come in with chest pain, troponins are 16, butare lower than previous admission when she had the type II NSTEMI.??EKG is??reassuring against ischemic changes.??Her chest pain is most likely secondary to her acute blood loss anemia.?? - Clopidogrel was paused??on her last discharge but??there was miscommunication and the daughter continued this medication - On admission, extensive conversation regarding the risks and benefits of clopidogrel notably??risk of recurrent heart attack or stroke versus GI bleed was discussed -??Continue statin and aspirin only, no Plavix -Follow-up with cardiology as an outpatient ?? Vascular disease (I99.9):??Unclear??what??vascular procedure she really had??and what it means thather veins were closed again .??Her family member who is a nurse??is very concerned about this.??Asshe is having some??pain in her legs, though no asymmetry,??and has been more immobile, it would make sense to check for DVT.??She is not tachycardic or hypoxic,??which makes PE less likely, though??would need to be vigilant regarding this??serious condition. -??Doppler ultrasound??of the bilateral lower extremities??was done, negative for DVT ?? Chronic cough (R05.3):??Patient with chronic cough, no pneumonia on??imaging. - Outpatient PFTs due to smoking history?? - Lozenges??while inpatient to address??what is most likely irritation??after EGD ?? CKD (chronic kidney disease) (N18.9):??On overview of Cr in the past year, baseline appears to be around 1.2-1.4.?Appears to be around her baseline now.. ?? Diabetes (E11.9):??Has history of diabetes, is on basal bolus??insulin at home.??Will decrease doses while she is here and on a clear liquid diet. - Lantus 20U nightly?? - Lispro 5-13??TID - Hypoglycemia measures? HTN (hypertension) (I10):??Was on lisinopril (held for??LARISSA in the??past) and amlodipine in the past,??discharged on labetalol during prior admission. Kidney function at baseline. - Will restart lisinopril for kidney protection in the setting of??CKD, diabetes.? Heart failure, chronic, right-sided (I50.812):??BNP slightly high, but euvolemic on exam.?? Continue??torsemide? Blood transfusions given at slower rate due to concern for volume overload. ?? Hyperthyroidism (E05.90):??Continue methimazole? Quality Measures DVT PPx: Pneumo boots?? Code Status: Full? Disposition: Monitor for any further evidence of GI bleed,??give IV iron today. ??Possible discharge??tomorrow if??hemoglobin and??vital stable. ? Electronically Signed on 03/20/25 04:25 PM Aletha Jordan MD Consult note * Nitin ARIAS, Randall H: PERFORM, MODIFY, MODIFY Event Display: Consultation Note Authored Date: [id number] Patient: ??CROWLEY, LAUREN ? Age:??79 Years?Sex:??Female?:??1945?LOC:??[facility]?? Chief Complaint Pt is coming from home with c/o SOB x 3 weeks while standing or walking. Pt started to feel nausea nad vomited after eating. Pt denies CP, fevers, SOB. Reason for Consultation Anemia History of Present Illness ?? 79-year-old female with reported past medical history of CAD s/p CABG, hypertension, multiple admissions for anemia, history of angiectasia in the duodenum of unclear significance and prior history of obscure bleeding.?? Patient is well-known to the GI service and has had significant GI workup in the past as given below. ?? Patient now comes into the hospital with weakness, lethargy, dyspnea and chest pain.?? Patient was found to to be hemodynamically stable.?? She was found to have significant anemia with a hemoglobin of 5.9 and MCV of 75.?? Patient was mildly elevated BUN/creatinine ratio.?? On my evaluation patientstates that she has been in her usual state of health till last few days.?? She denies any overt episodes of GI bleeding and denies noting any hematochezia or hematemesis or melena.?? Denies any abdominal pain.?? She states that her VCE pill took many days to come out.?? Patient is on aspirin and Plavix seems to have been held.?? Last bowel movement was more than 24 hours ago and she has not had any further episodes of bleeding while in the hospital. ? GI workup: ?? EGD 01/20/2025: Grade D esophagitis, mild duodenitis, angiectasia in the duodenal bulb of unclear significance.?? Colonoscopy aborted due to poor prep ?? Colonoscopy 01/30/2025 melena throughout the entire colon.?? Terminal ileum also had melena suggestive of small bowel bleed ?? Push enteroscopy 02/02/2025: Normal stomach, normal duodenum, small jejunal AVM not accounting for degree of melena ?? CTE 02/02/2025: No active bleeding.?? Nonspecific wall thickening in the proximal to mid jejunum ?? VCE 02/19/2025: Inconclusive study.?? Capsule most likely retained within the stomach.?? Plan for repeating VCE after prep ? Review of Systems Full review of systems completed and was negative except as mentioned above in HPI Physical Exam Vitals & Measurements T:??97.5?F?? TMIN:??97.5?F?? TMAX:??98.2?F?? HR:??87??(Peripheral)?? RR:??16?? BP:??141/65?? SpO2:??100%?? WT:??84.5??kg?? Constitutional: Alert, in no distress. Mental Status: Oriented to person, place and time. Gastrointestinal: Abdomen soft, no tenderness, non-distended.??No pulsatile mass.?? Neurologic: Cranial nerves II-XII grossly intact.?? Skin:? No jaundice Musculoskeletal: No cyanosis or clubbing. No gross deformities. Normal range of motion. Psychiatric: Appropriate mood and affect?? Assessment/Plan ?? Microcytic anemia Obscure GI bleed???suspected small bowel source ?? 79-year-old female with reported past medical history of CAD s/p CABG, hypertension, multiple admissions for anemia, history of angiectasia in the duodenum of unclear significance and prior history of obscure bleeding.?? Patient is well-known to the GI service and has had significant GI workup in the past as given above including bidirectional endoscopy, push enteroscopy, CTE and VCE.?? She now comes to the hospital with symptomatic microcytic anemia at 5.9.?? No reports of significant overt GIbleeding and clinical picture does not point to active ongoing hemorrhage. ?? Patient's VCE was nondiagnostic and it seems like the capsule was retained in the stomach.?? She will need a repeat capsule study which is done usually as an outpatient however at this time we will plan to do it with an EGD to bypass the stomach.?? If patient has bleeding in the hospital we would need urgent imaging to localize the bleed in order to treat.?? A diagnostic DBE would not be ideal given her other medical comorbid's and the lack of target at this time.?? Patient is agreeable with plan. ?? Plan: Continue trending hemoglobin and transfuse as needed Continue monitoring for signs of hemorrhage If patient has clinically significant bleeding in the hospital, obtain stat CTA versus tagged RBC scan based on volume of bleeding If patient does not have any further bleeding, we will plan expedited outpatient VCE with EGD with a half prep Please obtain abdominal x-ray to ensure last capsule has passed Repeat Iron studies with ferritin and consider oral or IV iron repletion as appropriate Clear liquid diet for now ? Thank you for referring this patient to the Division of Gastroenterology, [facility].?Please feel free to reach out with any questions or concerns. ?? The patient's case and management was discussed with Dr. Alejandro Taveras MD Gastroenterology Fellow PGY6 Division of Gastroenterology, [facility] - [facility] (The above document was created using [employer] voice recognition software. 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 Please contact the provider for additional questions and if clarification is needed.)?? Problem List/Past Medical History Ongoing Coronary artery disease Coronary artery disease involving coronary bypass graft DM2 (diabetes mellitus, type 2) Follow-up examination after gynecological surgery GERD (gastroesophageal reflux disease) HLD (hyperlipidemia) HTN (hypertension) Knee pain, bilateral Neuropathic pain of left lower extremity Obese class I Status: Inactive Obese class I Status: Inactive Obese class I Obesity Osteoarthritis Umbilical hernia Procedure/Surgical History Colonoscopy, flexible; diagnostic, including collection of specimen(s) by brushing or washing, whenperformed (separate procedure): 01/30/25 Robotic-assisted total laparoscopic hysterectomy and bilateral salpingo- oophorectomy: 12/26/21 Joint replacement: 2020 Umbilical hernia CABG x 3 - Coronary artery bypass grafts x 3 Medications Inpatient Acetaminophen(Acetaminophen Tablet), 650 mg, By Mouth, Every 4 hours, PRN Aspirin(aspirin 81 mg oral delayed release tablet), 81 mg, By Mouth, Daily in AM Atorvastatin(atorvastatin 80 mg oral tablet), 80 mg, By Mouth, Daily at bedtime Benzocaine Topical(Chloraseptic Lozenge), 1 lozenge, By Mouth, Every 3 hours, PRN Dextrose 50% in Water(Dextrose 50% Inj Syringe (25Gm)), 12.5 Gm, IV Push Slowly, Every 20 minutes, PRN Dextrose 50% in Water(Dextrose 50% Inj Syringe (25Gm)), 25 Gm, IV Push Slowly, Every 15 minutes, PRN Glucagon(Glucagon Inj), 1 mg, Intramuscular, Once, PRN Glucose(Glucose Gel), 15 Gm, By Mouth, Every 20 minutes, PRN Glucose(Glucose Gel), 30 Gm, By Mouth, Every 20 minutes, PRN Guaifenesin/Dextromethorphan(Robitussin DM Liquid), 10 mL, By Mouth, Every 4 hours, PRN Insulin Glargine(Insulin Glargine Inj), 20 units= 0.2 mL, Subcutaneous Injection, Daily at bedtime Insulin Lispro(Insulin LISPRO Sliding Scale), 5-13 units, Subcutaneous Injection, 3 times a day before meals Lisinopril(lisinopril 20 mg oral tablet), 20 mg, By Mouth, Daily Melatonin(Melatonin Tablet), 3 mg, By Mouth, Daily at bedtime, PRN Methimazole(methimazole 10 mg oral tablet), 5 mg, By Mouth, Daily Pantoprazole(Pantoprazole Inj), 40 mg, IV Push Slowly, Every 12 hours Polyethylene Glycol 3350(MiraLax Powder), 17 Gm= 1 pack/packet, By Mouth, Daily, PRN Senna(Senna Tablet), 8.6 mg= 1 tablet, By Mouth, 2 times a day, PRN Simethicone(Simethicone Tablet), 80 mg, Chew, 3 times a day, PRN Sodium Chloride(NaCL 0.9% Flush), 3 mL, IV Push, Every 8 hours Sodium Chloride(NaCL 0.9% Flush), 3 mL, IV Push, Every 8 hours, PRN torsemide(torsemide 20 mg oral tablet), 10 mg= 0.5 tablet, By Mouth, Daily before breakfast Home Aspirin(aspirin 81 mg oral delayed release tablet), 81 mg, By Mouth, Daily in AM Atorvastatin(atorvastatin 80 mg oral tablet), 80 mg= 1 tablet, By Mouth, Daily at bedtime Clopidogrel(clopidogrel 75 mg oral tablet) Insulin Aspart(Insulin Aspart FlexPen 100 units/mL injectable solution) Insulin Glargine(Lantus Solostar Pen 100 units/mL subcutaneous solution), See Instructions Labetalol(labetalol 100 mg oral tablet), 100 mg, By Mouth, 2 times a day Methimazole(methimazole 5 mg oral tablet), 5 mg= 1 tablet, By Mouth, Daily Omeprazole(omeprazole 40 mg oral enteric coated capsule), 40 mg= 1 capsule, By Mouth, Daily torsemide(torsemide 20 mg oral tablet), 10 mg= 0.5 tablet, By Mouth, Daily before breakfast Allergies NKA Social History Alcohol Use:Past Exercise Self assessment:Poor condition Home/Environment Living situation:Home/Independent Lives with:daughter and grandaughter Nutrition/Health Diet: (Don't list allergies here)Regular Sexual Sexually involved in last 6 months:No Substance Abuse Use:Never Tobacco Use:Former smoker, quit more than 30 days ago Other:quit about 10 years ago Family History Arthritis: Mother. Cancer of colon: Brother. Diabetes mellitus: Brother. Hypertension: Mother. Stroke: Father. Family Member(s) Relationship: Father, Age: unknown, Cause: stroke Relationship: Brother, Age: 50 years Electronically Signed on 03/18/25 05:06 PM Nitin ARIAS, Randall Allen MD, Sreekanth Carrillo: PERFORM Event Display: Consultation Note Authored Date: [id number] ?I have reviewed the patient's medical history, findings on examination, diagnosis and treatmentplan as documented in the??fellow note. Case and its management discussed with fellow ?? Patient seen and evaluated independently on the day of the consultation, case discussed in details with patient and her family present at the bedside, we reviewed in details the extensive diagnosis work-up, the indication/pros and cons of EGD/colonoscopy, CT enterography vs CT angiogram,?? capsule endoscopy, double balloon endoscopy, intraop enteroscopy etc ?? At this time would continue with conservative approach and consider repeat CT angiogram/tagged RBC scan in presence of recurrent overt/clinically significant GI bleeding which is not the case at thistime (one bowel movement over the past 24 hours per patient) ?? Will plan for repeat capsule as an outpatient, patient would either have capsule released in the duodenum, vs remain npo for longer after ingesting the capsule etc ?? Also discussed empiric double balloon enteroscopy which ideally should be limited for diagnostic purpose, not indicated at this time in view of tenous respiratory status and the absence of overt GI bleeding ?? Will continue to follow-up with you Electronically Signed on 03/18/25 09:51 PM Alejandro ARIAS, Sreekanth Carrillo Note * Amy Forrester RN: PERFORM Event Display: Discharge/Transfer Note Hospital Authored Date: Nursing Discharge Note Entered On: 03/21/2025 10:55 EST Performed On: 03/21/2025 10:55 EST by Amy Forrester RN Nursing Discharge Note 2 Discharge Level of Care at Discharge : Homehealth/VNA Discharge Time : 03/21/2025 11:00 EST Discharge VNA/Hospice/Home Care(v001) : [facility] [phone] Sole Tier Utilized : No Patient Left Unit Via : Wheelchair Patient Accompanied Off Unit with : Responsible adult DC Instructions Provided & Signed by Pt : Yes Patient Understands D/C Instructions : Yes Patient Instructions Discharge Signed : Yes Did Pt have Specialty Bed or Wound Vac : No Amy Forrester RN - 03/21/2025 10:55 EST Electronically Signed on 03/21/25 10:55 AM Amy Forrester RN * Julian ARIAS, Aletha: MODIFY, PERFORM Event Display: Discharge/Transfer Note Hospital Authored Date: Patient: ??CROWLEY, LAUREN ? Age:??79 Years?Sex:??Female?:??1945?LOC:??[facility]?? 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) HTN (hypertension) (I10) CKD (chronic kidney disease) (N18.9) Chronic cough (R05.3) Vascular disease (I99.9) _ Discharge Medications Amlodipine (amLODIPine 5 mg oral tablet)??1 tab(s) 5 Milligram TAKE ONE TABLET BY MOUTH EVERY DAY Aspirin (aspirin 81 mg oral delayed release tablet)??81 Milligram By Mouth Daily in AM Atorvastatin (atorvastatin 80 mg oral tablet)??1 tab(s) 80 Milligram By Mouth Daily at bedtime Insulin Aspart (Insulin Aspart FlexPen 100 units/mL injectable solution)??INJECT 7 TO 13 UNITS UNDER THE SKIN THREE TIMES DAILY BEFORE MEALS Insulin Glargine (Lantus Solostar Pen 100 units/mL subcutaneous solution)??See Instructions 10-12 units at bedtime Methimazole (methimazole 5 mg oral tablet)??5 Milligram 1 tablet By Mouth Daily Metoprolol (Toprol XL 25 mg oral tablet, extended release)??25 Milligram 1 tablet By Mouth Daily Omeprazole (omeprazole 40 mg oral enteric coated capsule)??1 capsule 40 Milligram By Mouth Daily before a meal Potassium Chloride (Potassium Chloride (Eqv-K-Tab) 20 mEq oral tablet, extended release)??1 tab(s) 20 Milliequivalent By Mouth Daily torsemide (torsemide 20 mg oral tablet)??0.5 tab(s) 10 Milligram By Mouth Daily ? Discharge Medications New Metoprolol (Toprol XL 25 mg oral tablet, extended release)1 tab(s) Oral Daily. Refills: 1. Potassium Chloride (Potassium Chloride (Eqv-K-Tab) 20 mEq oral tablet, extended release)1 tab(s) Oral Daily. Refills: 0. Changed torsemide (torsemide 20 mg oral tablet)0.5 tab(s) Oral Daily. Unchanged Aspirin (aspirin 81 mg oral delayed release tablet)81 Milligram Oral Daily in the morning. Refills:0. Atorvastatin (atorvastatin 80 mg oral tablet)1 tab(s) Oral Daily at Bedtime. Refills: 0. Insulin Aspart (Insulin Aspart FlexPen 100 units/mL injectable solution)INJECT 7 TO 13 UNITS UNDER THE SKIN THREE TIMES DAILY BEFORE MEALS. Methimazole (methimazole 5 mg oral tablet)1 tab(s) Oral Daily. Omeprazole (omeprazole 40 mg oral enteric coated capsule)1 capsule Oral Daily. before a meal. Refills: 1. Discontinued Amlodipine (amLODIPine 5 mg oral tablet)TAKE ONE TABLET BY MOUTH EVERY DAY. Insulin Lispro (insulin lispro 100 u/ml subcutaneous injection)2-14 units Subcutaneous Injection 3 times a day before meals. Refills: 0. Labetalol (labetalol 100 mg oral tablet)100 Milligram Oral twice a day for 60 Days. Refills: 0. Lisinopril (lisinopril 30 mg oral tablet)TAKE ONE TABLET BY MOUTH EVERY DAY. magnesium/potassium/sodium sulfates (Suprep Bowel Prep Kit oral liquid)per GI office. Refills: 0. Metformin (metFORMIN 500 mg oral tablet)TAKE ONE TABLET BY MOUTH TWICE A DAY. PCP Follow-Up/Heads-Up followup with PCP Follow up with GI for capsule endoscopy ?? Hospital Course ?? Lauren Keo is a 79yoF with PMHx of??DM, HTN, CAD s/p CABG,??history of GI bleed admitted on 03/18 for symptomatic anemia in the setting of GI bleed.? Acute on chronic anemia GI (gastrointestinal bleed) (K92.2):?? 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 -Was having melena during hospital stay,??nuclear scan did not show any active bleeding -Received blood transfusion and IV iron twice??with improvement in hemoglobin -No further melena GI consulted in house:-Can be discharged??from GI standpoint and will arrange outpatient follow-up for capsule endoscopy: GI team notified at the time of discharge -In terms of her antiplatelet: She only remains on baby aspirin.?? Plavix was discontinued during last??admission after consultation with??cardiology due to concern of GI bleed.? -Followup GI and PCP??outpt -??I have discussed with patient's daughter??regarding discharge planning??and went over all her medications, she voiced understanding. ??Also??recommended to avoid Plavix??and not to take any medication except mentioned in discharge summary??from??without consulting Dr.??Back when I also explainedred flag signs of GI bleed and to seek medical attention if any. -??Patient was hemodynamically stable and saturating well on room air?at the time of discharge ? CAD (coronary artery disease) (I25.10):??Patient did come in with chest pain, troponins are 16, butare lower than previous admission when she had the type II NSTEMI.??EKG is??reassuring against ischemic changes.??Her chest pain is most likely secondary to her acute blood loss anemia.?? - Clopidogrel was paused??on her last discharge but??there was miscommunication and the daughter continued this medication - On admission, extensive conversation regarding the risks and benefits of clopidogrel notably??risk of recurrent heart attack or stroke versus GI bleed was discussed -??Continue statin and aspirin only, no Plavix -Follow-up with cardiology as an outpatient ?? Vascular disease (I99.9):??Unclear??what??vascular procedure she really had??and what it means thather veins were closed again .??Her family member who is a nurse??is very concerned about this.??Asshe is having some??pain in her legs, though no asymmetry,??and has been more immobile, it would make sense to check for DVT.??She is not tachycardic or hypoxic,??which makes PE less likely, though??would need to be vigilant regarding this??serious condition. -??Doppler ultrasound??of the bilateral lower extremities??was done, negative for DVT ?? Chronic cough (R05.3):??Patient with chronic cough, no pneumonia on??imaging. - Outpatient PFTs due to smoking history?? - Lozenges??while inpatient to address??what is most likely irritation??after EGD ?? CKD (chronic kidney disease) (N18.9):??On overview of Cr in the past year, baseline appears to be around 1.2-1.4.?Appears to be around her baseline now.. ?? Diabetes (E11.9):??Continue home??insulin. ??Monitor glucose at home, follow-up with PCP ?? HTN (hypertension) (I10):??Patient was on labetalol, amlodipine.?? Switch to metoprolol XL given her coronary artery disease. ??Continue amlodipine.?? Monitor blood pressure as an outpatient, if stable and if kidney function is stable then??can??resume lisinopril. ? Hypokalemia Heart failure, chronic, right-sided (I50.812):??BNP slightly high, but euvolemic on exam.?? Continue??torsemide, decrease dose to??10 mg??due to concern for GI bleed and dehydration Will discharge on potassium supplement of 20 mEq??to optimize potassium once he remains in??diuretics. ?? Hyperthyroidism (E05.90):??Continue methimazole? Objective Assessment and Plan ? Vital Signs?? Temperature: 97.3 DegF (03/21/25 08:00:00) Temperature Route: Oral (03/21/25 08:00:00) Pulse Rate: 88 bpm (03/21/25 08:00:00) Respiratory Rate: 18 br/min (03/21/25 08:00:00) Systolic Blood Pressure:??150 mm Hg??High (03/21/25 08:53:00) Diastolic Blood Pressure: 68 mm Hg (03/21/25 08:53:00) Blood pressure sites: Arm, right (03/21/25 08:00:00) Mean Arterial Pressure: 81 mm Hg (03/21/25 03:32:00) Pulse Pressure: 82 mm Hg (03/21/25 08:00:00) Oxygen Saturation: 95 % (03/21/25 08:00:00) Liters per Minute: 2 L/min (03/21/25 03:32:00) Mode of Delivery (Oxygen): Room air (03/21/25 08:00:00) Early Warning Score: 4 (03/21/25 08:54:29) ? . Physical Exam General: Awake, oriented, not in distress HEENT: No pallor, icterus Respiratory:??Normal breath sound.?? No added sound Cardio: NSR no murmur Abd: non tender non distended BS present Ext: no edema Neuro: moving all ext spontaneosuly, no facial droop or slurring of speech Consultants GI Follow-Up Appointments Added Follow Up ?Time Frame ?Comments Po Ry ARIAS Patient Instructions You were admitted for evaluation of GI bleed. ??You underwent??nuclear scan which did not show any active bleeding. ??You were evaluated by GI Dr. ??You also received blood transfusion and??IV iron with improvement in your hemoglobin ???Please take medication as mentioned in discharge summary ?Please do not take??Plavix.?? Only take??baby aspirin. ?Stop taking labetalol.?? Start taking??metoprolol??succinate??for blood pressure ?Continue insulin. ??Monitor blood glucose at home ?Start taking potassium??supplements??which has been ordered ?Please do not take any??other medication except mentioned in discharge summary without consulting your doctor ?Hide Selector Will arrange outpatient follow-up for you??for capsule endoscopy. ??? If you get any symptoms like??lightheadedness, dizziness, shortness of breath then please seek medical attention.?? You might??get??black stool, however if it becomes very frequent??then??please call [facility] gastroenterology office Home Health Face to Face *Denotes mandatory silverio ?? *I certify that this patient is under my care and that I or an allowed non- physician working with me had a face to face encounter with the patient on this date:??03/21/2025 10:02 ?? *The encounter with the patient was in whole, or in part, for the following medical condition, which is the primary diagnosis(es) for home health care:??Chest pain ([id number]) GI (gastrointestinal bleed) (K92.2) Diabetes (E11.9) CAD (coronary artery disease) (I25.10) Hyperthyroidism (E05.90) Heart failure, chronic, right-sided (I50.812) HTN (hypertension) (I10) CKD (chronic kidney disease) (N18.9) Chronic cough (R05.3) Vascular disease (I99.9) ?? *Select the indications for the discipline/s that are being arranged for this patient. Nursing (select all that apply): [_] None [_x] Medication management (reconciliation, teaching)?? [x_] Chronic disease management?? [_] Wound care and treatment?? [x_] Home safety evaluation [_] Administer SQ/IM/IV medications?? [_] Cath care?? [_] Drain care?? [_] Trach or GT care?? Other _ Occupation Therapy (select all that apply): [_] None [_] ADL Management [_] Fall prevention training [_] Energy conservation [_] Cognitive training Other _ Physical Therapy (select all that apply): [_] None [_] Functional mobility training [_] Home exercise program to strengthen [_] Increase ROM?? [_] Falls prevention training [_] Home maintenance program for chronic disease Other _ Speech Therapy (select all that apply): [_] None [_] Swallow evaluation and training [_] Speech and language training [_] Cognitive training to process, organize, and/or recall information Other _ ? *Homebound due to (select all that apply): [_x] Inability to leave home without assistance/supervision [_] Inability to ambulate without assistance [_] Pain [_] Decreased strength and endurance [_] Unsteady gait [_x] Severe SOB and fatigue [_] Impaired transfers [_] Inability to negotiate stairs [_] Limited weight bearing [_] Mental status change? *Physician Signature: _ALETHA JORDAN ?? *By signing this, I certify that I have personally evaluated the patient and agree with the findings and recommendations as documented above. ? 35_ minutes spent on discharge Electronically Signed on 03/21/25 10:11 AM Aletha Jordan MD * Mitzy POPE, Amy: PERFORM Event Display: Patient Education/Instruction Authored Date: [id number] Inpatient Adult Discharge Instructions. [address] [address] Name: LAUREN CROWLEY : 1945?? Visit: 03/18/2025 02:07?? Current Date: 03/21/2025 10:19 ?? Account: [id number]?? Inpatient Adult Discharge Instructions We would like to thank you for allowing us to assist you with your healthcare needs. The following includes patient education materials and information regarding your injury/illness. Our entire staffstrives to provide an excellent experience for our patients and their families. PLEASE ENSURE YOU FOLLOW-UP PER THE INSTRUCTIONS BELOW! ?? YOUR OPINION IS IMPORTANT TO US! Please complete the survey you may receive by mail or email. Your feedback will be used to make improvements to the healthcare experiences of our patients and their families. Surveys are administered by [employer]. ?? If further treatment with your primary care physician or another doctor is recommended, it is important for you to keep the appointment. Call your primary care physician or return to the Emergency Department immediately if your condition worsens, fails to improve, or new symptoms develop. If you need to find a doctor, you can call [facility] [employer] for a referral at [phone] or toll free at [phone] or log in to [email or web address].. ?? [facility], in keeping with [facility] guidance, no longer requires face masks for staff, patientsor visitors in most situations. Similiar to time spent indoors at other locations, there is the chance that you were exposed to repiratory viruses during your time with us (such as flu or COVID-19). If you develop symptoms concerning for a viral respiratory infection, please seek testing (and treatment if indicated) from your medical provider or home test kit. ?? You can view and manage your care through the patient portal or by using a health care harish of your choosing. [employer] is a website that allows you to securely view your medical information including your hospital discharge summary, office visit summaries, medications and follow-up visits. You can also request appointments, renew medications, and request access to your medical information using a health care harish of your choosing, or just ask a question. You are entitled to know the individuals who participated in your treatment. This information is available within your medical record and will be provided upon your request. You can enroll at [email or web address] or register d uring your next office visit. You have been discharged from [facility], Patient Care Unit: S3??. If you have any questions regarding these instructions, including results of studies pending, afteryou leave, please call us and we will be happy to assist you 23/10. [facility] Your Care Team Attending Physician Aletha Jordan MD?? Consulting Providers Aletha Jordan MD?? Discharging Providers Aletha Jordan MD Reason for Your Visit Pt is coming from home with c/o SOB x 3 weeks while standing or walking. Pt started to feel nausea nad vomited after eating. Pt denies CP, fevers, SOB.?? Your Diagnosis CAD (coronary artery disease) Chest pain Chronic cough CKD (chronic kidney disease) Diabetes GI (gastrointestinal bleed) Heart failure, chronic, right-sided HTN (hypertension) Hyperthyroidism Vascular disease Tests Performed Below is a partial list of the tests performed during your hospitalization. You may have had other tests and procedures not included in this list. Please discuss all test results with your provider. B Type Natriuretic Peptide (NT-proBNP) Basic Metabolic Panel CBC CBC w/ Differential FERRITIN GLUCOSE POC H + H High??Sensitivity??Troponin T Hold Blue Top Tube HOLD MORENO TUBE IRON & TIBC Magnesium Level PHOSPHORUS PT (INR) PTT Type and Screen Doppler Venous Ext Lower Bilat (US) GI Bleed Scan XR Chest 2 Views Frontal and Lat XR KUB or Abdomen Add On Lab Order?? B Type Natriuretic Peptide (NT-proBNP)?? Basic Metabolic Panel?? CBC?? CBC w/ Differential?? Ferritin?? Glucose POC?? Hgb + Hct (H + H)?? High??Sensitivity??Troponin T?? Hold Blue Top Tube?? Hold Moreno Top Tube (HOLD MORENO TUBE)?? INR (PT (INR))?? Iron + Iron Binding Capacity (IRON & TIBC) Magnesium Level?? NM Gastrointestinal Bleed Scan (GI Bleed Scan)?? PTT?? Phosphorus Level (PHOSPHORUS)?? Transfuse RBCs?? Type and Screen?? US Doppler Ext Lower Venous Bilat (Doppler Venous Ext Lower Bilat (US))?? XR Abdomen AP (XR KUB or Abdomen)?? Chest 2 Views Frontal and Lat (XR Chest 2 Views Frontal and Lat)?? Primary Care Provider Ry Soriano MD? Advance Directive Health Care Proxy on File Yes - Health Care Proxy Discharge Vitals Temperature: 97.3 DegF Height: 163 cm Pulse Rate: 88 bpm Weight: 85 kg Respiratory Rate: 18 br/min Body Mass Index:??31.8 kg/m2??High Systolic Blood Pressure:??150 mm Hg??High Body surface area: 1.96 Diastolic Blood Pressure: 68 mm Hg ?? Oxygen Saturation: 95 % ?? Studies Pending All studies ordered during this hospital stay have been completed unless listed below. Please discuss all pending results with your provider listed above in these instructions. ?? Add On Lab Order?? Transfuse RBCs?? What to do next Instructions From Your Doctor You were admitted for evaluation of GI bleed. ??You underwent??nuclear scan which did not show any active bleeding. ??You were evaluated by GI Dr. ??You also received blood transfusion and??IV iron with improvement in your hemoglobin ???Please take medication as mentioned in discharge summary ?Please do not take??Plavix.?? Only take??baby aspirin. ?Stop taking labetalol.?? Start taking??metoprolol??succinate??for blood pressure ?Continue insulin. ??Monitor blood glucose at home ?Start taking potassium??supplements??which has been ordered ?Please do not take any??other medication except mentioned in discharge summary without consulting your doctor ?Hide Selector Will arrange outpatient follow-up for you??for capsule endoscopy. ??? If you get any symptoms like??lightheadedness, dizziness, shortness of breath then please seek medical attention.?? You might??get??black stool, however if it becomes very frequent??then??please call [facility] gastroenterology office ?? Orders??:good :Fair? 03/21/25 10:11:00 EST?? You Need to Schedule the Following Appointments Follow Up with??Ry Soriano MD ?? Where:[address] [place] [address]- Discharge Medications LAUREN CROWLEY :1945 Visit Date:03/18/2025 Medications: Please continue your medications until treatment is completed or stopped by your provider. Medications not listed below should be discontinued. Discuss any questions related to medications with your provider. What How Much When Instructions Next Dose New Metoprolol (Toprol XL 25 mg oral tablet, extended release) 1 tab(s) Oral Daily Refills: 1 Ordering Physician: Aletha Jordan MD Pickup at [facility] 03/22 9 am New Potassium Chloride (Potassium Chloride (Eqv-K-Tab) 20 mEq oral tablet, extended release) 1 tab(s) Oral Daily Ordering Physician: Aletha Jordan MD at [facility] 03/22 9 am Changed Amlodipine (amLODIPine 5 mg oral tablet) 1 tab(s) Special Instructions: TAKE ONE TABLET BY MOUTH EVERY DAY ?? 03/22?? at 9 am Changed Insulin Glargine (Lantus Solostar Pen 100 units/ mL subcutaneous solution) See instructions Special Instructions: 10-12 units at bedtime ?? tonight at bedtime Changed torsemide (torsemide 20 mg oral tablet) 0.5 tab(s) Oral Daily 03/22 at 9 am Unchanged Aspirin (aspirin 81 mg oral delayed release tablet) 81 Milligram Oral Daily in the morning Ordering Physician: Edinson Palacios 03/22 at 9 am Unchanged Atorvastatin (atorvastatin 80 mg oral tablet) 1 tab(s) Oral Daily at Bedtime Ordering Physician: Edinson Palacios tonihgt at bedtime Unchanged Insulin Aspart (Insulin Aspart FlexPen 100 units/ mL injectable solution) Special Instructions: INJECT 7 TO 13 UNITS UNDER THE SKIN THREE TIMES DAILY BEFORE MEALS ?? as ordered?? Unchanged Methimazole (methimazole 5 mg oral tablet) 1 tab(s) Oral Daily 03/22 at 9 am Unchanged Omeprazole (omeprazole 40 mg oral enteric coated capsule) 1 capsule Oral Daily Special Instructions: before a meal Ordering Physician: Aletha Jordan MD ?? Pickup at [facility] 03/22 at 9am?? Pharmacy Information [facility]: [address] [place] [address] [address] [place] [id number] [phone] ?? What How Much When Comments Stop Taking Clopidogrel (clopidogrel 75 mg oral tablet) Special Instructions: TAKE ONE TABLET BY MOUTH EVERY DAY ?? Stop Taking Insulin Lispro (insulin lispro 100 u/ ml subcutaneous injection) 2-14 units Subcutaneous Injection 3 times a day before meals Ordering Physician: Nava Smith MD Stop Taking Labetalol (labetalol 100 mg oral tablet) 100 Milligram Oral Twice a day Duration: 60 Days Ordering Physician: Aletha Jordan MD Stop Taking Lisinopril (lisinopril 30 mg oral tablet) Special Instructions: TAKE ONE TABLET BY MOUTH EVERY DAY ?? Stop Taking magnesium/ potassium/ sodium sulfates (Suprep Bowel Prep Kit oral liquid) See instructions Special Instructions: per GI office Ordering Physician: Nava Smith MD ?? Stop Taking Metformin (metFORMIN 500 mg oral tablet) Special Instructions: TAKE ONE TABLET BY MOUTH TWICE A DAY ?? Prescription Given During Visit Metoprolol (Toprol XL 25 mg oral tablet, extended release) - 1 tablet = 25 mg, By Mouth, Daily, # 90 tablet, 1 Refills, [facility], [address] [place] [phone] Omeprazole (omeprazole 40 mg oral enteric coated capsule) - 1 capsule = 40 mg, By Mouth, Daily, # 90 capsule, 1 Refills, before a meal, [facility], [address] [place] [phone]?? Potassium Chloride (Potassium Chloride (Eqv-K-Tab) 20 mEq oral tablet, extended release) - 1 tablet= 20 mEq, By Mouth, Daily, # 60 tablet, 0 Refills, [facility], [address] [place] [phone]?? Laboratory Results Below is a partial list of the most recent Laboratory test results done prior to this discharge. You may have had other tests and procedures not included in this list. Please discuss all test resultswith your provider. Est Creatinine Clearance - 31.49 mL/min (03/21/2025) RBC Available - PT (03/19/2025) RBC Unit ID - [id number] (03/19/2025) B Type Natriuretic Peptide (NT-proBNP) (03/17/2025) ???Nt-Probnp - 1410 pg/mL Basic Metabolic Panel (03/21/2025) ???Sodium - 140 mmol/L???Potassium - 3.2 mmol/L???Chloride - 108 mmol/L???Bicarbonate Level - 20 mmol/L???Anion Gap - 12 mmol/L???Glucose Level - 106 mg/dL???BUN - 13 mg/dL???Creatinine-Blood - 1.26 mg/dL???Estimated GFR Creatinine - 43 ML/MIN/1.73 M2???Calcium - 9.7 mg/dL CBC (03/21/2025) ???WBC - 11.3 k/mm3???RBC - 3.64 m/mm3???Hgb - 9.2 Gm/dL???Hct - 29.8 %???MCV - 81.9 femtoliters???MCH - 25.3 pg???MCHC - 30.9 Gm/dL???Platelet Count - 264 k/mm3???RDW-SD - 61.3 femtoliters???MPV - 10.4 femtoliters???Nucleated RBC (Automated) - 0.4 #/100 WBC'S???Abs. NRBC - 0.1 k/mm3 CBC w/ Differential (03/17/2025) ???WBC - 10.4 k/mm3???RBC - 2.68 m/mm3???Hgb - 5.9 Gm/dL???Hct - 20.1 %???MCV - 75.0 femtoliters???MCH - 22.0 pg???MCHC - 29.4 Gm/dL???Platelet Count - 343 k/mm3???RDW-SD - 54.1 femtoliters???MPV - 10.6 femtoliters???Nucleated RBC (Automated) - 0.2 #/100 WBC'S???Abs. NRBC - 0.0 k/mm3???Abs. Neut - 7.3 k/mm3???Abs. Lymph - 2.3 k/mm3???Abs. [place] - 0.6 k/mm3???Abs. Eo - 0.1 k/mm3???Abs. Baso - 0.0 k/mm3???Neut % - 70.3 %???Lymph % - 22.2 %???[place] % - 5.7 %???Eos % - 1.1 %???Baso % - 0.1 %???Imm Gran - 0.6 %???Abs. Imm Gran - 0.1 k/mm3 FERRITIN (03/18/2025) ???Ferritin Level - 10 ng/mL GLUCOSE POC (03/21/2025) ???Glucose, POC - 119 mg/dL H + H (03/18/2025) ???Hgb - 6.7 Gm/dL???Hct - 21.4 % High??Sensitivity??Troponin T (03/18/2025) ???High Sensitivity Troponin (HSTnT) - 15 ng/L Hold Blue Top Tube (03/17/2025) ???Hold Blue Top - SPECIMEN DISCARDED AFTER 4 HOURS. HOLD MORENO TUBE (03/17/2025) ???Hold Moreno Top - SPECIMEN DISCARDED AFTER 1 WEEK IRON & TIBC (03/18/2025) ???Iron Level - 24 mcg/dL???Iron Binding Capacity, Unsaturated - 372 mcg/dL???Iron Binding Capacity, Estimated Total - 396 mcg/dL???% Iron Saturation - 6 % Magnesium Level (03/21/2025) ???Magnesium - 2.2 mg/dL PHOSPHORUS (03/19/2025) ???Phosphorus - 2.9 mg/dL PT (INR) (03/18/2025) ???INR - 1.1???Protime (PT) - 11.5 seconds PTT (03/18/2025) ???APTT - 22.8 seconds Type and Screen (03/17/2025) ???Blood Type - O Positive???Antibody Screen - Negative Allergies (NKA means No Known Allergies) NKA Problems Active Problems??(13) Coronary artery disease?? Coronary artery disease involving coronary bypass graft?? DM2 (diabetes mellitus, type 2)?? Follow-up examination after gynecological surgery?? GERD (gastroesophageal reflux disease)?? HLD (hyperlipidemia)?? HTN (hypertension)?? Knee pain, bilateral?? Neuropathic pain of left lower extremity?? Obese class I?? Obesity?? Osteoarthritis?? Umbilical hernia?? Education Materials Below is the list of Educational Leaflet Providered with your Discharge Instructions. Valuables and Belongings I fully understand and agree that [facility] accepts no responsibility for all my personal property including clothing, toilet articles, radios, jewelry, dentures, hearing aids, rings, money, or any other property that is in my possession or is brought to me after admission. I understand certain valuables may be placed in a hospital safe for a short period of time. I understand that the hospital is not liable for loss or damage due to accident, fire, or other natural occurrence while said property is in the safe. I accept full responsibility for any personal property that I keep with me, and will not hold the hospital responsible in case of loss or disappearance. I acknowledge that i have been encouraged to send valuables and belongings home. ?? Review of Valuable and Belonging List: With patient Date for Pt to Sign Valuables/Belongings: 03/18/25 09:05:00 ?? Other Discharge Information ? Case Management Discharge Plan?? Discharge Plan?? Discharge Agency Information?? Discharge Level of Care at Discharge: Homehealth/VNA Name of Agency #1: [facility] Discharge VNA/Hospice/Home Care: [facility] [phone] Service Categories #1: Residential ?? Service Comments #1: A referral was placed to [facility] for home services. Someone will contact you to arrange a visit once you have been discharged home. If you do not hear from anyone in1-2 days, please contact the agency ?? Pulmonary Rehab Status?? Pulmonary Rehab Discharge Status?? Respiratory Rate: 18 br/min ? Common Emergency Awareness Tips IS IT A STROKE? Act FAST and Check for these signs: FACE Does the face look uneven? ARM Does one arm drift down? SPEECH Does their speech sound strange? TIME Call at any sign of stroke ?? Heart Attack Signs Chest discomfort: Most heart attacks involve discomfort in the center of the chest and lasts more than a few minutes, or goes away and comes back. It can feel like uncomfortable pressure, squeezing, fullness or pain. Discomfort in upper body: Symptoms can include pain or discomfort in one or both arms, back, neck, jaw or stomach. Shortness of breath: With or without discomfort. Other signs: Breaking out in a cold sweat, nausea, or lightheaded. Remember, MINUTES DO MATTER. If you experience any of these heart attack warning signs, call to get immediate medical attention! ?? Smoking can increase your chances of developing chronic health problems and can cause harmful effects to other family members in your house. If you smoke, you are strongly encouraged to quit. Please call [facility] [employer] Link at [phone] or [phone] Technologies[facility] ([phone]) or log in to [email or web address] for referrals to smoking cessation programs. ?? 052 Suicide & Crisis Lifeline is available 23/10 if you or someone you know needs to find a reason to keep living. By calling 966 you'll be connected to a skilled, trained counselor at a crisis center in your area. INPATIENT DISCHARGE INSTRUCTIONS SIGNATURE YAJAIRA CROWLEY LAUREN Location:[facility] Registration Date and Time:03/18/2025 02:07 EST Primary Care Physician: Ry Soriano MD, Attending Physician: Julian ARIAS, [facility], I LAUREN CROWLEY, have received the above patient education materials/instructions and have verbalized understanding. If ambulance or transport services are being used I further acknowledge being given achoice of service. ?? If you need to contact me, please call me at this number: . 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 Signature: Relationship to Patient: Witness Name/Signature: Date: Patient Care team information Care Team Personnel Name: Pamela Castillo RN [facility] RN Member Role: Primary Care Nurse Name: Walter Gresham RN Position[facility] RN Member Role: Primary Care Nurse Name: Paty Galloway RN Position[facility] RN Member Role: Primary Care Nurse Name: Jennifer Miramontes RN Position: [facility] RN Member Role: Primary Care Nurse Name: Mary Wynne RN Position[facility] RN Member Role: Primary Care Nurse Name: Esme Burns RN Position[facility] RN Member Role: Primary Care Nurse Name: Leatha Quevedo RN Position: [facility] Boring Machine Operator Production Member Role: Primary Care Nurse Name: Anisha Lane NP Position: [facility] Associate Professional Member Role: Primary Care Nurse Address: [address] [place] [address] [place] [address]- Telecom: Name: Tala Barroso RN Position[facility] RN Member Role: Primary Care Nurse Name: Zac Willard RN Position[facility] RN Member Role: Primary Care Nurse Name: Abi Mojica RN Position: [facility] RN Member Role: Primary Care Nurse Name: Ry Soriano MD Position: Reference Physician Member Role: PCP Address: [address] [place] [phone]- Telecom: Name: Carol Perrin LPN Position: [facility] RN Member Role: Primary Care Nurse Name: Diana Feng RN Position: [facility] RN Member Role: Primary Care Nurse Name: Abeba Sandhu RN Position: [facility] RN Member Role: Primary Care Nurse Name: Virignia Cleveland LPN Position: S RN Member Role: Primary Care Nurse Name: Cira Gomez RN Position: S RN Member Role: Primary Care Nurse Care Team Related Persons Name: KEOMORE Insurance Providers Guarantor name: LAUREN CROWLEY [employer] Plan Information #: 1 Payer[facility] Payer Identifier: NA Member Number: [id number] Group Number: [facility] Subscriber Identifier: [id number] Relationship to Subscriber: self Coverage Type: Medicare Managed Care (Includes Medicare Advantage Plans) Coverage Verification Date: NA Telecom: NA Address: NA
--- OUTSIDE RECORDS SUMMARY | 2025-03-21 23:59 | XMS_ITS | Continuity of Care Document ---
Author Organization [facility] Address [address] [place] [address]- Care Team Providers Care Acoustical Tile Patternmaker Name Role Phone Ry Soriano MD Primary Care Physician [place] [facility] [place]): 02/19/25 - 03/21/25 [facility] [address] [place] [address]- Attending Physician: Claire Escamilla Admitting Physician: Claire Escamilla Referring Physician: AdmtrClaire Encounter Type: Triage Allergies, Adverse Reactions, Alerts No Known Allergies Medications amLODIPine 5 mg oral tablet 1 tablet = 5 mg, TAKE ONE TABLET BY MOUTH EVERY DAY Start Date: 03/21/25 Status: Ordered Medication Dispense Status: Completed Total Allowed Fills: 1 Fills Dispensed: 0 aspirin 81 mg oral delayed release tablet = 81 mg, By Mouth, Daily in AM, # 30 tablet, 0 Refills, Maintenance, 09/24/19 11:12:00 AM EDT, EC Tablet, [facility], [...] 0 Refills, Maintenance, 09/24/19 11:12:00AM EDT, Tablet, [facility], 163, [...] Team Personnel Name: Pamela Castillo RN Position: S RN Member Role: Primary Care Nurse Name: Walter Gresham RN Position: S RN Member Role: Primary Care Nurse Name: Paty Galloway RN Position: [facility] RN Member Role: Primary Care Nurse Name: Jennifer Miramontes RN Position: [facility] SN RN Member Role: Primary Care Nurse Name: Mary Wynne RN Position: [facility] RN Member Role: Primary Care Nurse Name: Esme Burns RN Position: [facility] RN Member Role: Primary Care Nurse Name: Leatha Quevedo RN Position: [facility] Hospital Plastic Surgeon Member Role: Primary Care Nurse Name: Anisha Lane NP Position: [facility] Associate Professional Member Role: Primary Care Nurse Address: [address] [place] [address] [place] [address]- Telecom: Name: Tala Barroso RN Position: [facility] RN Member Role: Primary Care Nurse Name: Zac Willard RN Position: [facility] RN Member Role: Primary Care Nurse Name: Abi Mojica RN Position: [facility] RN Member Role: Primary Care Nurse Name: Ry Soriano MD Position: Reference Physician Member Role: PCP Address: [address] [place] [address]- Telecom: Name: Carol Perrin LPN Position: [facility] RN Member Role: Primary Care Nurse Name: Diana Feng RN Position: [facility] RN Member Role: Primary Care Nurse Name: Abeba Sandhu RN Position: [facility] RN Member Role: Primary Care Nurse Name: [place] LPN Position: [facility] RN Member Role: Primary Care Nurse Name: Cira Gomez RN Position: [facility] RN Member Role: Primary Care Nurse Care Team Related Persons Name: MELIZA MORTENSEN Insurance Providers Guarantor name: ARIANNE MORTENSEN [employer] Plan Information #: 1 Payer: [facility] Payer Identifier: NA Member Number: [id number] Group Number: [id number] Subscriber Identifier: NA Relationship to Subscriber: self Coverage Type: Medicare Managed Care (Includes Medicare Advantage Plans) Coverage Verification Date: NA Telecom: NA Address: NA
[2025-03-25 08:31] VITALS: BP 128/78; PULSE 70; BMI 30.6
--- NOTE | 2025-03-25 08:31 | MHC.OFFVIS ---
Vital Signs 03/25/25 08:31 Height 5 ft 4 in Weight 178 lb 9.191 oz BMI 30.6 BP 128/78 Blood Pressure Location Lt brachial Position Sitting Pulse 70 Pulse Source Monitor Intake Visit Reasons: [facility] dc/ pt req to be seen by doc. Allergies No Known Allergies (No Known Allergies*) Allergy (Verified 02/06/25 08:06) Medication List - Last Reconciled 03/25/25 by Sujit Patterson MD amlodipine 5 mg PO DAILY aspirin 81 mg PO DAILY atorvastatin 80 mg PO DAILY blood sugar diagnostic (FreeStyle Lite Strips) As directed check the BS TID blood-glucose meter ([id number] Ultra2 Meter) As directed [CANE As directed] flash glucose sensor (FreeStyle Kisha 2 Sensor kit) three times a day insulin aspart U-100 (Novolog FlexPen U-100 Insulin aspart) 8 - 36 units subcut TID insulin glargine 25 units subcut DAILY methimazole 5 mg PO DAILY metoprolol succinate ER 25 mg PO DAILY omeprazole 40 mg PO DAILY pen needle, diabetic (1st Tier Unifine Pentips) As directed injection 4 times a day pen needle, diabetic As directed potassium chloride 20 mEq PO DAILY [Pull ups As directed] [PULL UPS Extra Large As directed] torsemide 20 mg PO DAILY HPI Comments Details: Lauren returns for follow-up regarding coronary disease and bypass surgery. In the past, she was seen for consultation regarding anginal-type symptoms. That led to cardiac catheterization and coronary bypass surgery. Multiple vascular risk factors including type 2 diabetes, hypertension, dyslipidemia. She has had recent hospitalizations for gastrointestinal bleeding. Per notes, hemoglobin was as low as 5.9. It seems she underwent extensive workup including EGD, colonoscopy CTA angiography, push endoscopy, capsule endoscopy and had a small AVM that was cauterized. Nuclear scan apparently did not show any active bleeding. Had received blood transfusions as well as IV iron. Per notes, Plavix were stopped and she was left only on aspirin. However, we do not have Plavix in her med list. In this context, she also had chest pain and low-grade troponin elevation and thought to have had a type 2 NSTEMI. Since discharge, she states she is actually doing quite well. She does not have any chest pain or any cardiac symptoms. She does not have any bleeding issues either. [facility] Medical History (Updated 02/06/25 @ 08:37 by Elisabeth Early NP) Chest pain GI bleed Pulmonary edema COVID-19 virus infection Obesity (BMI 30-39.9) Diabetic nephropathy Essential hypertension Lab test positive for detection of COVID-19 virus Toxic multinodular goiter Tubular adenoma of colon Coronary artery disease Hypercholesterolemia Type 2 diabetes mellitus with hyperglycemia Surgical History Hx of colonoscopy Status post coronary artery bypass graft History of coronary artery bypass graft x 3 (~09/17/19) History of cardiac catheterization (~09/16/19) History of total left knee replacement H/O umbilical hernia repair S/P lumpectomy, left breast Family History Father No problems noted. Mother No problems noted. Social History Housing: Apartment Alcohol intake: current Alcohol intake frequency: holidays/special occasions only Comment: beer new year Patient Tobacco Use Status: Former Tobacco user Tobacco use type: Cigarette Years Smoked: 1999 quit e-Cigarette/Vaping Use: Never Used Second Hand Smoke Exposure: No Advance Directives Date on File: 01/08/20 service: No Current occupational status: retired Cognitive needs: Yes (cane ) Hearing needs: No Vision needs: Yes (glasses) Review of Systems Const Denies weakness ENT Denies dizziness Card Denies chest pain, Denies chest pain with activity, Denies syncope, Denies rapid heart rate, Denies pedal edema, Denies edema, Denies leg edema, Denies lightheadedness, Denies palpitations, Denies dyspnea, Denies dyspnea on exertion and Denies orthopnea Resp Denies cough, Denies dyspnea and Denies dyspnea on exertion GI Denies hematochezia and Denies change in stool character Musc Denies abnormal gait, Denies muscle cramps, Denies muscle weakness, Denies numbness, Denies radiating pain into limb and Denies tingling Neuro Denies abnormal gait, Denies dizziness, Denies syncope, Denies numbness, Denies tingling and Denies weakness Endo Denies palpitations Physical Exam Vital Signs: Last Vital Signs Pulse 70 03/25/25 08:31 BP 128/78 03/25/25 08:31 BMI result Body Mass Index 30.6 Const General: comfortable and no acute distress Orientation/consciousness: patient oriented x3 HEENT Other: Unremarkable Head: Yes normal to inspection Neck Neck: Yes normal visual inspection Chest Chest palpation & inspection: normal inspection of the chest Resp Auscultation: clear to auscultation bilaterally Cardio Palpation: normal PMI Heart sounds: S1 normal heart sound present, S2 normal heart sound present, no gallops, no murmurs and no rubs GI Palpation (GI): Soft to palpation Back/Spine/Pelvis Other: unremarkable Skin General skin exam: no rashes or lesions noted Neuro General: patient oriented x3 Extrem General: Yes normal to inspection Psych Mental Status: mental status grossly normal Office Procedures EKG Details: Rhythm at 70/Min; nonspecific ST-T changes; T inversions in lead one/aVL. Similar to prior EKG from one year ago. [id number], Complete Assessment & Plan Assessment & Plan (1) Atherosclerotic cardiovascular disease: Code(s): I25.10 - Atherosclerotic heart disease of [place] coronary artery without angina pectoris Category: Medical Plan: As discussed above, demand related NSTEMI in setting of GI bleeding. In the recent echocardiogram from [facility], LVEF 57%. No wall motion abnormalities. Mild mitral regurgitation and moderate tricuspid regurgitation with mild pulmonary hypertension. Clinically doing well and would hold off any further workup at this time especially with recent GI bleeding. Remains on aspirin and statins. Last LDL 56mg/dl. (2) Status post coronary artery bypass graft: Code(s): Z95.1 - Presence of aortocoronary bypass graft Category: Surgical Plan: 09/2019. No recurrent issues. (3) Essential hypertension: Code(s): I10 - Essential (primary) hypertension Category: Medical Plan: Per the most recent discharge summary from [facility], on metoprolol, amlodipine. It seems lisinopril has been discontinued at [facility] due to concerns for creatinine elevation. Today's blood pressure seems stable. (4) Type 2 diabetes mellitus with complication: Code(s): E11.8 - Type 2 diabetes mellitus with unspecified complications Category: Medical Plan: On insulin. Most recent hemoglobin A1c is 6.9%. Plan I discussed with the patient that her recent bleeding episode put significant stress on her heart. I noted that her EKG is stable and similar to her prior one from last year. I informed her that her symptoms of fatigue are due to her very low blood count. We will not make any changes to her medications today while she recovers from the bleeding episode. I recommended she complete follow-up blood work after the holidays to ensure her blood count is stable and will see her back in the office in three months. Patient was informed and verbally consented to the use of an ambient scribe for clinic note documentation during this visit. Patient Instructions: - Continue taking your aspirin as you have been. - Do not make any other changes to your medications at this time. - Please get blood work done sometime after the holidays to recheck your blood counts. - Schedule a follow-up appointment to see me in about 3 months. Coding Level of Care Code Est Pt Level 4 (10628) Add On Problem Visit Only Diagnoses Atherosclerotic cardiovascular disease I25.10 Status post coronary artery bypass graft Z95.1 Essential hypertension I10 Type 2 diabetes mellitus with complication E11.8 CPT Codes EKG - CPT: 32114-Vuyjalgbevbjzmgau, Complete ([id number])
--- OUTSIDE RECORDS SUMMARY | 2025-03-25 08:31 | XMS_ITS | Encounter Summary ---
Author Organization [facility] Address [address] [place] [address] Phone Care Team Providers Care Tag Clerk Name Role Phone Ry Soriano MD Primary [...] Description 05/13/2025 11:40 AM EST Office Visit [facility] [address] [place] [address] [place] [address] Sushma Arias MD [address] [place] [address] [email or web address] documented as of this encounter Visit Diagnoses Not on filedocumented in this encounter Care Teams Tag Clerk Relationship Specialty Start Date End Date Ry Soriano MD [address] [place] [address] PCP - General Internal Medicine 07/29/18 documented as of this encounter Additional Source Comments The information contained in this document represents components of the legal health record. It is not the complete legal health record.[facility]
--- OUTSIDE RECORDS SUMMARY | 2025-03-25 08:31 | XMS_ITS | Encounter Summary ---
Author Organization [facility] Address [address] [place] [address] [place] [phone] Phone Care Team Providers Care Mortgage Operations Manager Name Role Phone Ry Soriano MD Primary Care Provider [phone] Encounter Details Date Type Department Care Team (Late Contact Info) Description 12/20/2018 Procedure Pass [facility] [address] [place] [phone] Social History Tobacco Use Types Packs/Day Years [...] Description 05/13/2025 11:40 AM EST Office Visit [facility] [address] [place] [address] [place] [address] Sushma Arias MD [address] [place] [address] documented as of this encounter Visit Diagnoses Not on filedocumented in this encounter Care Teams Mortgage Operations Manager Relationship Specialty Start Date End Date Ry Soriano MD [address] [place] [address] PCP - General Internal Medicine 07/29/18 documented as of this encounter Additional Source Comments The information contained in this document represents components of the legal health record. It is not the complete legal health record.[facility]
--- OUTSIDE RECORDS SUMMARY | 2025-03-25 08:31 | XMS_ITS | Encounter Summary ---
Author Organization [facility] Address [address] [place] [address] Phone Care Team Providers Care Chemical Strength Tester Name Role Phone Ry Soriano MD Primary Care Provider [phone] Reason for Visit * Reason Onset Date Comments Post Hospital Discharge Plan Of Care For AMS Pat ients 03/23/2025 Encounter Details Date Type Department Care Team (Late st Contact Info) Description 03/23/2025 Telephone [facility] [address] [place] [address] Sushma Arias MD [address] [place] [phone] [email or web address] [facility] Discharge Plan Of Care For AMS Patients Social History Tobacco Use Types Packs/Day Years Used Date Smoking Tobacco: Former Cigarettes 0.5 25 1 988 - 2012 Smokeless Tobacco: Never Alcohol Use Standard Drinks/Week [...] AM EST documented as of this encounter Progress Notes * Morenita Jay LPN - 03/23/2025 4:47 PM EST [facility]left message for nurse to call BACK * Gabriela Preciado - 03/23/2025 4:03 PM EST [facility] Nurse, asking for a call back [phone] * Nishi Haines - 03/23/2025 1:36 PM EST Pt called in stated she was in pt at [facility] and want her glucose scale done. Central Support Seam Stayer (Please do not reply to this user; this inbox is not monitored.) Thank you. documented in this encounter Plan of Treatment Upcoming Encounters Date Type Department Care Team (Late st Contact Info) Description 05/13/2025 11:40 AM EST Office Visit [facility] [address] [place] [address] [place] [address] Sushma Arias MD [address] [place] [phone] documented as of this encounter Goals Goal Patient Goal Type Associated Problems Recent Progress Patient-Stated? Author Autogenerat ed Goal Care Plan Autogenerated Problem No Vicki Gray documented as of this encounter Visit Diagnoses Not on filedocumented in this encounter Additional Health Concerns Active Problems Noted Date Diagnosed Date Autogenerated Problem 03/18/2025 documented as of this encounter Care Teams Chemical Strength Tester Relationship Specialty Start Date End Date Ry Soriano MD [address] [place] [phone] PCP - General Internal Medicine 07/29/18 documented as of this encounter Additional Source Comments The information contained in this document represents components of the legal health record. It is not the complete legal health record.[facility]
--- OUTSIDE RECORDS SUMMARY | 2025-03-25 08:31 | XMS_ITS | Patient Health Record ---
Author Organization [facility] Address [address] [place] [address] Care Team Providers Care Electronic Equipment Trades Worker Name Role Phone Ry Soriano Primary Care Provider Clive Cardoso Unavailable [phone] Allergies Allergen (clinical drug ingredient) Drug/Non Drug Allergy documented on EMR Reaction Allergy Type Onset Date Status Adhesive per pt no allergy Allergy Active Results Component Value Reference Range Notes HEMOGLOBIN A1C (GLYCOHEMOGLO BIN) Reviewed date:03/02/2025 09:57:46 AM Interpretation: Performing Lab: Notes/Report: HEMOGLOBIN A1C % (HH) 7.2 HEMOGLOBIN A1C (GLYCOHEMOGLO BIN) Reviewed date:11/17/2024 09:18:24 AM Interpretation: Performing Lab: Notes/Report: HEMOGLOBIN A1C % (HH) 7.0 Reason For Referral No Information Medications Medication SIG (Take, Route, Frequency, Duration) Notes Start Date End Date Status Vitamin D3 Active Aspir-81 Active Lisinopril 30 MG 1 tablet Orally Once a day; Duration: 30 day(s) Active Metoprolol Succinate 25 MG 1 capsule Ora lly Once a day; Duration: 30 day(s) Active Torsemide 20 MG as directed Orally Active Extra Depth Orthopedic Shoes, (1) Pair With (3) Pair Custom Heat Molded Multidensity Innersoles Dx: NIDDM/PVD(E11.51), Hammertoe Foot Deformity(M20.41,M20.42), Preulcerative Skin Lesion(s)(L85.1) Wear Daily; Duration: 365 days Active Atorvastatin Calcium 80 MG 1 tablet Oral ly Once a day; Duration: 30 day(s) Active methIMAzole 5 MG 1 tablet Orally Once a day; Duration: 30 day(s) Active amLODIPine Besylate 5 MG 1 tablet Orally Once a day; Duration: 30 day(s) Active metFORMIN HCl 500 MG 1 tablet with a linda l Orally Once a day; Duration: 30 day(s) Active Ciclopirox Olamine 0.77 % 1 application Externally Twice a day to skin of feet including between the toes; Duration: 30 days Active Immunizations Vaccine Route Administration Date Status Comme nts Influenza Unknown 05/03/2022 Administered Influenza Unknown 12/03/2023 Administered Social History Tobacco Use: Social History Observation Description Date Details (start date - stop date) Never Smoker NA - NA Tobacco use other than smoking: Question Answer [...] Problem Acquired hammer toe of right foot (8719982867497 105) Other hammer toe(s) (acquired), right foot (M20.41) Active confirmed Problem Type 2 diabetes mellitus with peripheral angiopathy (724766118) Type 2 diabetes mellitus with diabetic peripheral angiopathy without gangrene (E11.51) Active confirmed Q7(A), Q8(2B), Q9(1B,2C) Problem Acquired hammer toe of left foot (3401422586143 103) Other hammer toe(s) (acquired), left foot (M20.42) Active confirmed Vital Signs Blood pressure diastolic 64 mm Hg 03/02/2025 Height 5ft 5in in 03/02/2025 Blood pressure systolic 131 mm Hg 03/02/2025 Weight 187 lbs 03/02/2025 BMI 31.12 kg/m2 03/02/2025 Procedures Procedure Date Ordered Date Performed Result Body Sit e 13577-OTHSZLJ NAIL, 6 OR MORE 06/02/2024 N/A 13753-Vsnv Destruction, 1-14 06/02/2024 N/A 47990-NRZJ SKIN LESIONS, OVER 4 06/02/2024 N/A 66935-YPIXPUQ NAIL, 6 OR MORE 11/17/2024 N/A 87726-Qrmp Destruction, 1-14 11/17/2024 N/A 51279-SOID SKIN LESIONS, OVER 4 11/17/2024 N/A 53235-VTZLDJR NAIL, 6 OR MORE 03/02/2025 N/A 04142-ZACD SKIN LESIONS, OVER 4 03/02/2025 N/A Encounters Encounter Location Date Provider Diagnosis [address] [address] 06/02/2024 Clive Vilchis Type 2 diabetes mellitus with diabetic peripheral angiopathy without gangrene E11.51 ; Plantar wart B07.0 ; Tinea unguium B35.1 ; Pain in right toe(s) M79.674 ; Pain in left toe(s) M79.675 ; Right foot pain M79.671 and Tinea pedis of both feet B35.[address] [address] 11/17/2024 Clive Vilchis Type 2 diabetes mellitus with diabetic peripheral angiopathy without gangrene E11.51 ; Plantar wart B07.0 ; Tinea unguium B35.1 ; Pain in right toe(s) M79.674 ; Pain in left toe(s) M79.675 ; Right foot pain M79.671 and Tinea pedis of both feet B35.[address] [address] 03/02/2025 Clive Vilchis Type 2 diabetes mellitus with diabetic peripheral angiopathy without gangrene E11.51 ; Tinea unguium B35.1 ; Pain in right toe(s) M79.674 ; Pain in left toe(s) M79.675 ; Other hammer toe(s) (acquired), right foot M20.41 and Other hammer toe(s) (acquired), left foot M20.[address] [address] 08/21/2024 Clive Vilchis Assessments Encounter Date Diagnosis [...] Q9(1B,2C) 11/17/2024 Plantar wart (ICD-10 - B07.0) 03/02/2025 Type 2 diabetes mellitus with diabetic peripheral angiopathy without gangrene (ICD-10 - E11.51) Q7(A), Q8(2B), Q9(1B,2C) 03/02/2025 Tinea unguium (ICD-10 - B35.1) 03/02/2025 Pain in right toe(s) (ICD-10 - M79.674) 11/17/2024 Tinea unguium (ICD-10 - B35.1) 06/02/2024 Tinea unguium (ICD-10 - B35.1) 03/02/2025 Pain in left toe(s) (ICD-10 - M79.675) 06/02/2024 Pain in right toe(s) (ICD-10 - M79.674) 11/17/2024 Pain in right toe(s) (ICD-10 - M79.674) 03/02/2025 Other hammer toe(s) (acquired), right foot (ICD-10 - M20.41) Patient Educated with: DIABETIC FOOT CARE INSTRUCTIONS.p df (DIABETIC FOOT CARE INSTRUCTIONS.p df) 06/02/2024 Pain in left toe(s) (ICD-10 - M79.675) 11/17/2024 Pain in left toe(s) (ICD-10 - M79.675) 11/17/2024 Right foot pain (ICD-10 - M79.671) 06/02/2024 Right foot pain (ICD-10 - M79.671) 03/02/2025 Other hammer toe(s) (acquired), left foot (ICD-10 - M20.42) 11/17/2024 Tinea pedis of both feet (ICD-10 - B35.3) 06/02/2024 Tinea pedis of both feet (ICD-10 - B35.3) 06/02/2024 Other 11/17/2024 Other Plan Of Treatment Pending Test Test Name Order Date 65935-FFMOBMH NAIL, 6 OR MORE 03/05/2024 41797-LBOLSXF NAIL, 6 OR MORE 06/02/2024 80154-JQQUNSS NAIL, 6 OR MORE 11/17/2024 95465-OJNWWOG NAIL, 6 OR MORE 03/02/2025 25368-Vvlr Destruction, 1-14 11/17/2024 28804-Kzqw Destruction, 1-14 06/02/2024 16869-Apag Destruction, 1-14 03/05/2024 45293-JCJC SKIN LESIONS, OVER 4 03/05/20 24 62408-HPVK SKIN LESIONS, OVER 4 06/03/19 25 91316-EUNO SKIN LESIONS, OVER 4 11/18/19 25 00067-RJRZ SKIN LESIONS, OVER 4 03/02/20 25 94617-QWFW SKIN LESIONS, 2 TO 4 06/15/19 24 21046-UUUK SKIN LESIONS, 2 TO 4 09/14/19 24 Next Appt Details Provider Name:Clive Miriam Vilchis , 05/20/2025 10:45:00 AM, [address] [address], [place], [address], Insurance Providers Payer Name Payer Address Payer Phone Subscriber Number Group Number Insured Name Patient Relationship to Insured Coverage Start Date Coverage End Date [facility] [employer] Claims [address] [place] [id number] Lauren Crowley Self - patient is the insured Medical (General) History Medical History History ICD Code Arthritis Back,Hip,and Knee pain Cataracts covid-19 Diabetic High blood pressure Reflux ( GERD) Chicken pox Hypercholesterolemia Surgical History Surgery Date(Month/Year) triple bypass 2020 knee replacement hysterectomy 2022 Hospitalization History Reason Date(Month/Year) [facility]- anemia 01/2025
--- OUTSIDE RECORDS SUMMARY | 2025-03-25 08:31 | XMS_ITS | Encounter Summary ---
Author Organization [facility] Address [address] [place] [address] Phone Care Team Providers Care Document Preparation Specialist Name Role Phone Ry Soriano MD Primary Care Provider [phone] Encounter Details Date Type Department Care Team (Late Contact Info) Description 07/04/2021 Procedure Pass [facility] [address] [place] [address] Social History Tobacco Use Types Packs/Day Years [...] Description 05/13/2025 11:40 AM EST Office Visit [facility] [address] [place] [address] [place] [address] Sushma Arias MD [address] [place] [address] documented as of this encounter Visit Diagnoses Not on filedocumented in this encounter Care Teams Document Preparation Specialist Relationship Specialty Start Date End Date Ry Soriano MD [address] [place] [address] Drive [address] [place] [address] PCP - General Internal Medicine 07/29/18 documented as of this encounter Additional Source Comments The information contained in this document represents components of the legal health record. It is not the complete legal health record.[facility]
--- OUTSIDE RECORDS SUMMARY | 2025-03-25 08:31 | XMS_ITS | Encounter Summary ---
Author Organization [facility] Address [address] [place] [address] Phone Care Team Providers Care Police Justice Name Role Phone Ry Soriano MD Primary Care Provider Encounter Details Date Type Department Care Team (Late Contact Info) Description 12/20/2018 Procedure Pass [facility] Periop [address] [place] [address] Social History Tobacco Use Types Packs/Day Years [...] Description 05/13/2025 11:40 AM EST Office Visit [facility] Endocrinology [facility] [address] [place] [address] [place] [address] Sushma Arias MD [address] [place] [address] documented as of this encounter Visit Diagnoses Not on filedocumented in this encounter Care Teams Police Justice Relationship Specialty Start Date End Date Ry Soriano MD [address] [place] [address] PCP - General Internal Medicine 07/29/18 documented as of this encounter Additional Source Comments The information contained in this document represents components of the legal health record. It is not the complete legal health record.[facility]
--- OUTSIDE RECORDS SUMMARY | 2025-03-25 08:31 | XMS_ITS | Encounter Summary ---
Author Organization [facility] Address [address] [place] [address] Phone Care Team Providers Care Straddle Buggy Operator Name Role Phone Ry Soriano MD Primary Care Provider [phone] Reason for Visit * Reason Onset Date Comments Medication Question 03/23/2025 Encounter Details Date Type Department Care Team ([facility] Contact Info) Description 03/23/2025 Telephone [facility] Diabetes Clinic [address] [place] [address] [place] [address] Sushma Arias MD [address] [place] [address] [email or web address] Medication Question Social History Tobacco Use Types Packs/Day Years [...] as of this encounter Progress Notes * Gayle Cummings - 03/23/2025 1:25 PM EST Maryann called and LVM stating that she saw this Pt for the first time today and the Pt did not have any information about her sliding scale or insulin dosage. Please call her at [phone]. Thank you. documented in this encounter Plan of Treatment Upcoming Encounters Date Type Department Care Team (Late st Contact Info) Description 05/13/2025 11:40 AM EST Office Visit [facility] Endocrinology Clinic [address] [place] [address] Sushma Arias MD [address] [place] [address] [email or web address] documented as of this encounter Goals Goal Patient Goal Type Associated Problems Recent Progress Patient-Stated? Author Autogenerat ed Goal Care Plan Autogenerated Problem No Vicki Gray documented as of this encounter Visit Diagnoses Not on filedocumented in this encounter Additional Health Concerns Active Problems Noted Date Diagnosed Date Autogenerated Problem 03/18/2025 documented as of this encounter Care Teams Straddle Buggy Operator Relationship Specialty Start Date End Date Ry Soriano MD [address] [place] [address] Drive [address] [place] [address] PCP - General Internal Medicine 07/29/18 documented as of this encounter Additional Source Comments The information contained in this document represents components of the legal health record. It is not the complete legal health record.[facility]
--- OUTSIDE RECORDS SUMMARY | 2025-03-25 08:31 | XMS_ITS | Clinical Summary ---
Author Organization [facility] Address [address] [place] [address] Phone Care Team Providers Care Inspector [employer] Name Role Phone Ry Soriano MD Primary Care Provider [phone] Allergies No known active allergies Medications atorvastatin [...] (03/14/2024 10:30 AM EST): Good control by [email or web address] G7 download with average glucose 148, GMI [...] Rx on extra-depth orthopedic shoes by new surgical tech Dr. Vilchis recently. -Labs today -Adjust Lantus [...] her methimazole. Had blood work done at [facility] will get results to determine if [...] today - Routine follow-up scheduled with her surgical tech next week - Follow-up with Roxanna on [...] to see podiatry. Labs were done at [facility] will call for results Assessment & [...] her glucose levels. Up to date with [facility]. Labs ordered today Assessment & Plan (02/16/2023 10:04 AM EST): Control is reasonable based upon the patient's SMBG readings. No frequent hypoglycemia. She recently has had a couple episodes of severe hypoglycemia based upon the definition of less than 54. She is not sure what caused the lows, she corrected with orange juice and was fine. She hasn't received her dexcom supplies from [employer] yet. The office called today to see [...] her glucose levels. Up to date with [facility]. Labs ordered today Assessment & Plan (11/13/2022 [...] her glucose levels. Up to date with [facility]. Labs ordered today Assessment & Plan (08/07/2022 4:45 PM EDT): Reasonable control by SMBG. Last A1c is not available. Waiting for old records from [facility]. Taking 27 units of Lantus at bedtime and NovoLog by sliding scale between 8 to 36 units 3 times a day before meals. She is also on 1000 mg metformin twice a day. Patient was using the kisha 2 CGM, her prescription was canceled by [facility] because of not getting supporting medical records. No frequent or severe hypoglycemia. I asked patient to call [facility] for prescription on Kisha 2 to be [...] Encounters Date Type Department Care Team Description 03/23/2025 Telephone [facility] Endocrinology Clinic [address] [place] [address] [place] [address] Sushma Arias MD Post Hospital Discharge Plan Of Care For [facility] Patients 03/23/2025 Telephone [facility] Diabetes Clinic [address] [place] [address] [place] [address] Sushma Arias MD Medication Question from Last 3 Months Social History Tobacco Use Types Packs/Day Years Used Date Smoking Tobacco: Former Cigarettes 0.5 25 1 988 - 2013 Smokeless Tobacco: Never Tobacco Cessation:Counseling Given: Not [...] Description 05/13/2025 11:40 AM EST Office Visit [facility] Endocrinology Clinic [address] [place] [address] Sushma Arias MD [address] [place] [address] [email or web address] Health Maintenance Due Date Last Done Comments [...] on patient's age to complete this topic Goals Goal Patient Goal Type Associated Problems Recent Progress Patient-Stated? Author Autogenerat ed Goal Care Plan Autogenerated Problem No Vicki Gray Medical Devices Implanted Type Area Perfumer Device Identifier Shelf Expiration Date Model / Serial / Lot Knee Wedge Size 3 Plate Bone Tibial Stemmed Nexgen Precoat 03c Cs/1bx/1ea - [id number] Implanted:Qty: 1 on 12/20/2018 by Binu Oliver MD at [facility] NODATA Left: Knee MANJEET / DIV OF [employer] 06/30/2028 [id number] / / Knee Stem 145mm 100 Od 14 Associate Team Physician Tivanium Tibial Solid Screw Primary Straight Impl Nexgen - [id number] Implanted:Qty: 1 on 12/20/2018 by Binu Oliver MD at [facility] STANDARD Left: Knee [employer]ET / [employer] 05/30/2028 [id number] / / [id number] Knee Implant 3 4 12mm Size Cd 3to4 Femoral Articular Surface Nexgen Lps Flex Fixed 05 - [id number] Implanted:Qty: 1 on 12/20/2018 by Binu Oliver MD at [facility] STANDARD Left: Knee [employer] / [employer] 07/30/2026 [id number] / / [id number] Block Augment 10mm 5448 03 27 Sz Tibial Nexgen Trabecular Metal Rt Lateral Lt Medial - [id number] Implanted:Qty: 1 on 12/20/2018 by Binu Oliver MD at [facility] STANDARD Left: Knee [employer]ET / [employer] 07/01/2023 [id number] / / [id number] Block Augment 10.0mm Size 3 Tibial Nexgen Trabecular Metal Lt Lateral Rt Medial - [id number] Implanted:Qty: 1 on 12/20/2018 by Binu Oliver MD at [facility] STANDARD Left: Knee [employer] / [employer] 07/31/2023 [id number] / / [id number] Knee Implant 38x8.5mm Patella Nexgen All Poly Standard 06 - [id number] Implanted:Qty: 1 on 12/20/2018 by Binu Oliver MD at [facility] STANDARD Left: Knee [employer] / [employer] 05/30/2026 [id number] / / [id number] Block Augment 5mm Knee Femoral Nexgen Trabecular Metal Distal Size D 19 - [id number] Implanted:Qty: 1 on 12/20/2018 by Binu Oliver MD at [facility] STANDARD Left: Knee [employer] / [employer] 03/01/2022 [id number] / / [id number] Block Augment 5mm Knee Femoral Nexgen Trabecular Metal Distal Size D 19 - [id number] Implanted:Qty: 1 on 12/20/2018 by Binu Oliver MD at [facility] STANDARD Left: Knee [employer] / [employer] 07/01/2023 [id number] / / [id number] Knee Implant Component Femoral Nexgen Complete Legacy Zimaloy Constrained Condylar Lt Size D Cs/1bx/1ea - [id number] Implanted:Qty: 1 on 12/20/2018 by Binu Oliver MD at [facility] STANDARD Left: Knee [employer] / [employer] 05/02/2028 [id number] / / [id number] Knee Stem 200mm 155 Od 13 Associate Team Physician Tivanium Tibial Solid Screw Primary Straight Impl Nexgen - [id number] Implanted:Qty: 1 on 12/20/2018 by Binu Oliver MD at [facility] STANDARD Left: Knee [employer] / [employer] 11/30/2022 [id number] / / [id number] Knee Implant 12mm Size 3 Component Articular Surface Nexgen Uhmwpe Lcck Cd Bx/1ea - [id number] Implanted:Qty: 1 on 07/04/2021 by Binu Oliver MD at [facility] STANDARD Left: Knee [employer]JEET / DIV [employer] [id number] 05/31/2027 [id number] / / [id number] Left Tkr Cement Bone 40gr Palacos R And G Gentamicin Radiopaque Deangelo/1ea - [id number] Implanted:Qty: 2 on 12/20/2018 by Binu Oliver MD at [facility] Left: Knee [employer]JEET / [employer] 05/30/2021 [id number] / / [id number] Procedures Procedure Name Priority Date/Time Associated Diagnosis [...] EDT) SODIUM 139 133 - 146 mmol/L [facility] POTASSIUM 3.5 3.3 - 5.1 mmol/L [facility] CHLORIDE 104 96 - 108 mmol/L [facility] CO2 21 21 - 35 mmol/L [facility] BUN 12 6 - 19 mg/dL [facility] CREATININE 1.10 0.5 - 1.5 mg/dL [facility] GLUCOSE 88 70 - 99 mg/dL [facility] ALBUMIN 4.0 3.9 - 4.8 g/dL [facility] TOTAL PROTEIN 7.6 6.5 - 8.0 g/dL [facility] CALCIUM 10.0 8.4 - 10.3 mg/dL [facility] ALKALINE PHOSPHATASE 114 39 - 117 U/L [facility] TOTAL BILIRUBIN 0.3 0.0 - 1.2 mg/dL [facility] AST 22 0 - 37 U/L [facility] ALT 8 0 - 40 U/L [facility] GLOBULIN 3.6 1 - 4.8 g/dL [facility] EGFR 51(L) >59 mL/min/1.7 3m2 [facility] Comment:Estimated glomerular filtration rate calculated using the CKD-EPI refit equation. ANION GAP 18 10 - 20 mmol/L [facility] Blood 11/05/2024 12:2 9 PM EDT 11/05/2024 12:45 PM EDT us Sushma Arias MD LAB BLOOD BKR ORDERABLES Final Result [address] [id number] * (ABNORMAL) Hemoglobin A1c (06/10/2024 10:06 AM EDT) HEMOGLOBIN A1C 7.2(H) 4.3 - 5.8 % [facility] Blood 06/10/2024 10:0 6 AM EDT 06/10/2024 10:14 AM EDT us Jany Trevino PA-C LAB BLOOD BKR JACOBO LACKEY Final Result [address] [address] from Last 3 Months or Most Recently Relevant to Health Maintenance Additional Health Concerns Active Problems Noted Date Diagnosed Date Autogenerated Problem 03/18/2025 Insurance [facility] MEDICARE REPLACEMENT [facility] MEDICARE REPLACEMENT [facility] MEDICARE REPLACEMENT [facility] [place] [id number] [facility] [place] [id number] [facility] MEDICARE RE[address] [place] [address] [facility] MEDICARE REPLACEMENT [facility] MEDICARE REPLACEMENT [facility] MEDICARE REPLACEMENT Advance Directives For more information, please contact: [phone] (9AM - 5PM [facility], Sunday-Sunday) Documents on File Type Date Recorded Patient Data Center Technician Expl anation Healthcare Proxy 12/18/2018 HEALTH CARE [...] Agent (Proxy form on file) Care Teams Inspector [employer] Relationship Specialty Start Date End Date Bo, Ry Horan MD [address] [place] [address] PCP - General Internal Medicine 07/29/18 Additional Source Comments The information contained in this document represents components of the legal health record. It is not the complete legal health record.[facility]
--- OUTSIDE RECORDS SUMMARY | 2025-03-25 08:31 | XMS_ITS | Data Portability ---
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 Lab BMP, serum or plasma 2023 [facility], [address] [place] [address], [phone] 19:24:42 Referral None recorded. Procedures None recorded. Surgeries None recorded. Imaging None recorded. Medication Orders potassium chloride ER 20 mEq tablet,ext ended release(pa rt/cryst) 2023 024 [facility] Not available 15:48:42 Patient TargetsNo [...] rate Body weight Body temperature Oxygen saturation Systolic And Diastolic Provider Name and Address Organization Details Last Updated DateTime 3 18 /min 86 /min 61860.4 g 98.2 [degF] 95 % 151/81 mm[Hg] Not Available [facility] - production 3 15:59:17 Date Recorded Heart rate Respiratory rate Body temperature Oxygen saturation Systolic And Diastolic Provider Name and Address Organization Details Last Updated DateTime 2 68 /min 16 /min 97.2 [degF] 96 % 177/86 mm[Hg] Not Available [facility] - production 2 10:45:26 Date Recorded Respiratory rate Heart rate Oxygen saturation Systolic And Diastolic Provider Name and Address Organization Details Last Updated DateTime 12/29/2023 18 /min 80 /min 97 % 170/72 mm[Hg] Not Available [facility] - production 4 15:26:48 Social History None recorded. Functional [...] Note [id number] Cher Aldrich MD Main - [address] [phone] 11/15/2021 10:44:55 12/23/2021 12:50:11 Essential hypertension 33114706 I10 [id number] Bniu Miller MD Main - [facility] [address] [place] [phone] 09/14/2022 15:59:15 09/15/2022 10:12:45 Cough [id number] R05.9 [id number] Susan Taylor MD Main - [facility] [address] [place] [phone] 12/29/2023 15:26:46 12/31/2023 08:42:03 Hyperglycemia [id number] R73.9 Health Concerns Section Related Observation LastModified by Organization Detai ls LastModified Time None Recorded Concern Status LastModified by Organization Details LastModified Time None Recorded Advance Directives Directive None Recorded Payers Insurance Date Sequence Insurance Name Policy Number Policy Dillard Covered Member ID Dillard Member ID Guarantor Name 09/14/2022 1 [facility] - DOS PRIOR TO 2022 - DUAL ELIGIBLE (MEDICARE REPLACEMENT/ADV ANTAGE - HMO) Lauren Crowley [id number] Lauren Crowley 12/29/2023 1 [facility] - DOS ON OR AFTER 2022 - DUAL ELIGIBLE - [facility] OPTIONS AND ONE CARE (MEDICARE REPLACEMENT/ADV ANTAGE - HMO) Lauren Crowley [id number] Lauren Crowley Notes Date Note Type Note [...] Hypertension Allergies: Unknown Comments: 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 Red flags discussed, also MERCHANDISING LEAD(daughter) lives with member and will be there all night. Cher Aldrich MD [address] [facility],[address], [place], [address], [employer] 11/15/2021 11:11:16 09/14/2022 text/html CRC Nursing Assessment: Patient Reports: Cough, fever greater than 2 days Chief Complaints: Cough PMH: Hypertension, Heart Disease Allergies: No Known Comments: Sister calling on behalf of member with request for MI for eval prod cough x 2 days deny fever/chills unsure if she took OTC cough med . O2 sats drop with cough but remain stable. Verify member name/- Binu Miller MD [address] [facility],[address], [place], [address], [employer] 09/14/2022 16:01:50 12/29/2023 text/html HPI: Second outreach call to Mbr at number [phone] and spoke with Dgtr Aileen and Mbr. Mbrs last BS was 502 at 130 pm today. Mbr asymptomatic for hyperglycemia. Denies mental status change, Urinating large amounts, excessive thirst, dry mouth, vomiting, Blurred vision, or fruity smell on breath. Dgtr states mbr is at her baseline. Mbr checked bs again while on phone with the cru rn and still 500. Offered [facility] and they agreed. However instructed dgtr [...] No further information needed to process visit. [employer] Organization Information for Richard Gutiérrez Business Legal Name: [employer]. Address: [address] [place] [id number], Storage Receipt Poster: Garrick Pate MD CLIA No.: [id number] [employer] POC Test Results from Richard Gutiérrez iSTAT Chem8+ (15:36:49) Na: 137 mEq/L K: 3.8 mEq/L Cl: 105 mEq/L iCa: 1.32 mmol/L TCO2: 19 mmol/L Glu: 362 mg/dL BUN: 18 mg/dL Crea: 1.1 mg/dL Hct: 38 % Hb: 12.9 g/dL A ................... ................... ................... ................... ................... ................... ................... ........ [employer] Note From Richard Gutiérrez: Pt visit for [...] Pt blood sugar 360. VS as noted. [facility] [place] contacted who asks for blood labs. Labs obtained, uploaded, [facility] [place] contacted again. [facility] [place] requests Pt take 10 units insulin, and SC administer 40 mg potassium PO. Orders followed as noted. PT advised to call 911 should her symptoms worsen, Pt agrees to all [facility] [place] [place] orders, scene cleared. ................... ................... ................... ................... ................... ................... ................... ........ Disposition: Fulfilled Susan Taylor MD [address] [facility],[address], [place], [address], [employer] 12/29/2023 17:19:48 OBGyn Episode No OBEpisode recorded.
--- OUTSIDE RECORDS SUMMARY | 2025-03-25 08:31 | XMS_ITS | Encounter Summary ---
Author Organization [facility] Address [address] [place] [address] Phone Care Team Providers Care Stitching Machine Operator Name Role Phone Ry Soriano MD Primary Care Provider [phone] Reason for Referral * - Closed Specialty Diagnoses / Procedures Referred By Contholly t Referred To Contact Procedures NM Bone Outside (No Interpretation) Binu Oliver MD Phone: tel: fax: mailto:[email or web address] Referral ID Status Reason Start Date Expiration Date Visits Re quested Visits Authorized [id number] Closed 08/16/2018 08/16/2019 1 1 Encounter Details Date Type Department Care Team (Late st Contact Info) Description 08/16/2018 Transcribe Orders [facility] [address] [place] [phone] Pierre Contreras [address] [place] [phone] [email or web address] Social History Tobacco Use Types Packs/Day [...] Description 05/13/2025 11:40 AM EST Office Visit [facility] Endocrinology [address] [address] Sushma Arias MD [address] [place] [phone] [email or web address] documented as of this encounter Results * [...] INTE RPRETATION Final Result Performing Organization Address [facility] Co de Phone Number [facility] * XR Lower Extremity Outside (No Interpretation) (08/16/2018 10:32 AM EDT) Narrative [facility] - 08/16/2018 10:32 AM EDT This study is for PACS storage only and not for interpretation. us Binu Oliver MD IMG OUTSIDE IMAGING W/OUT INTE RPRETATION Final Result [facility] * NM Bone Outside (No Interpretation) (08/16/2018 10:32 AM EDT) Narrative [facility] - 08/16/2018 10:32 AM EDT This study is for PACS storage only and not for interpretation. us Binu Oliver MD IMG OUTSIDE IMAGING W/OUT INTE RPRETATION Final Result [facility] documented in this encounter Visit Diagnoses Not on filedocumented in this encounter Care Teams Stitching Machine Operator Relationship Specialty Start Date End Date Ry Soriano MD [address] [place] [phone] PCP - General Internal Medicine 07/29/18 documented as of this encounter Additional Source Comments The information contained in this document represents components of the legal health record. It is not the complete legal health record.[facility]
== END 2025-03-25 09:01 | disposition home or self-care (01) ==
LOC: HO.HCS 08:28
PROVIDERS: PCP Internal Medicine; Visit Provider Internal Medicine
DX: I25.10 Atherosclerotic heart disease of native coronary artery without angina pectoris (principal); Z95.1 Presence of aortocoronary bypass graft; I10 Essential (primary) hypertension; E11.8 Type 2 diabetes mellitus with unspecified complications
CPT/HCPCS: 93010; 99214; G2211

== ENCOUNTER → 2025-03-25 08:27 | Outpatient (BNVA) | payer OTHER, SELFPAY | PROVIDERS: PCP Internal Medicine; Visit Provider Internal Medicine | DX: I25.10 Atherosclerotic heart disease of native coronary artery without angina pectoris (principal); I10 Essential (primary) hypertension; E11.8 Type 2 diabetes mellitus with unspecified complications; I34.0 Nonrheumatic mitral (valve) insufficiency; I07.1 Rheumatic tricuspid insufficiency; I27.20 Pulmonary hypertension, unspecified; Z87.891 Personal history of nicotine dependence; Z79.899 Other long term (current) drug therapy; Z95.1 Presence of aortocoronary bypass graft; Z79.82 Long term (current) use of aspirin | CPT/HCPCS: 93005; 99212 ==